=== PATIENT | male | born 1985 | race Caucasian/White ===

== ENCOUNTER 2024-11-28 15:26 | Outpatient (OUT) | payer MEDICAID, SELFPAY ==
--- NOTE | 2024-11-28 15:27 | XR_ITS ---
The [address] [address] Patient Name: VASHTI SANFORD MRN: [id number] date: 1985 Sex: M Assigned Patient Location: RAD Current Patient Location: RAD Accession/Order Number: [id number] Exam Date: 11/28/2024 15:33 Report Date: 11/28/2024 15:50 At the request of: JESSI CHRISTIAN Procedure: XR hand LT min 3V EXAM: XR hand LT min 3V HISTORY: Swollen Left Hand COMPARISON: None. TECHNIQUE: 3 views of the left hand were obtained. FINDINGS: There is a fracture through the mid shaft of the fifth metacarpal bone, which is nondisplaced. There is no other evidence of an acute fracture or dislocation. A small calcification is seen along the ulnar aspect of the distal phalanx of the third digit, possibly a remote chip fracture. The joint spaces appear intact throughout. The soft tissues are unremarkable. XR/XR hand LT min 3V IMPRESSION: Nondisplaced fracture of the midshaft of the fifth metacarpal bone. There is no other evidence of an acute fracture or dislocation. The joint spaces are intact. Electronically authenticated by: TRISTON GARZA Date: 11/28/2024 15:50
--- NOTE | 2024-11-28 15:27 | XR_ITS ---
The [address] [address] Patient Name: VASHTI SANFORD MRN: [id number] date: 1985 Sex: M Assigned Patient Location: [facility] Current Patient Location: [facility] Accession/Order Number: [id number] Exam Date: 11/28/2024 15:33 Report Date: 11/28/2024 15:48 At the request of: JESSI CHRISTIAN Procedure: XR wrist LT min 3V EXAM: XR wrist LT min 3V HISTORY: Swollen Left wrist and Hand COMPARISON: None. TECHNIQUE: 3 views of the left wrist were obtained. FINDINGS: There is no evidence of an acute fracture or dislocation. There is mild relative widening of the scapholunate joint space suggesting an injury to the ligament. The joint space otherwise intact. Ulnar minus variance is present. The soft tissues appear unremarkable. XR/XR wrist LT min 3V IMPRESSION: No acute fracture or dislocation at the wrist. Slight relative widening of the scapholunate joint space is noted. Incidentally noted is a fracture of the midshaft of the fifth metacarpal bone. Please see the report for the x-ray of the hand performed today for further details. Electronically authenticated by: TRISTON GARZA Date: 11/28/2024 15:48
== END 2024-11-28 15:27 | disposition home or self-care (01) ==
LOC: RAD 15:26
PROVIDERS: PCP Nurse Practitioner Primary Care; Visit Provider Nurse Practitioner Primary Care
DX: M25.442 Effusion, left hand (principal); S62.357A Nondisplaced fracture of shaft of fifth metacarpal bone, left hand, initial encounter for closed fracture
CPT/HCPCS: 73110; 73130

== ENCOUNTER 2024-11-29 08:42 | Emergency (ER) | payer MEDICAID, SELFPAY ==
[2024-11-29 08:47] VITALS: BP 131/84; PULSE 86; TEMP 37; O2SAT 95; BMI 38.4
--- NOTE | 2024-11-29 09:02 | ED_ITS ---
HPI HPI - Extremity Injury (Upper) General Chief Complaint: Extremity Injury, Upper Stated Complaint: LEFT HAND INJURY Time Seen by Provider: 11/29/24 08:45 Source: patient Mode of arrival: walk-in Limitations: no limitations History of Present Illness HPI narrative: 39-year-old male presents for left hand injury. A week ago he punched a wall, he is right-handed. Yesterday he had an outpatient x-ray that shows a nondisplaced fifth metacarpal fracture. He was sent in for evaluation. He has no weakness or numbness and the pain is moderate. No other injury sustained. Related Data Home Medications ?Medication ?Instructions ?Recorded ?Confirmed acetaminophen 500 mg tablet 500 mg PO BID PRN pain 11/29/24 11/29/24 buspirone 10 mg tablet 10 mg PO BID 11/29/24 11/29/24 hydroxyzine pamoate 25 mg capsule 25 mg PO Q6H 11/29/24 11/29/24 ibuprofen 800 mg tablet 800 mg PO Q12H PRN fever or pain 11/29/24 11/29/24 melatonin 10 mg capsule 10 mg PO BEDTIME PRN sleep 11/29/24 11/29/24 Previous Rx's ?Medication ?Instructions ?Recorded ibuprofen 800 mg tablet 800 mg PO Q8H PRN pain #20 tabs 11/29/24 Allergies Allergy/AdvReac Type Severity Reaction Status Date / Time No Known Drug Allergies Allergy Verified 11/29/24 08:46 Opioid HPI Opioid Management Most Recent Pain and Opioid Data: No Data to Display Review of Systems ROS Narrative A ten point review of systems is negative except as noted above. PFSH PFSH Social History Little interest or pleasure in doing things: not at all Feeling down, depressed, or hopeless: not at all Exam Narrative Exam Narrative: Nurses note and vital signs reviewed and patient is not hypoxic. General: The patient appears well and in no apparent distress. Patient is resting comfortably on cart. Skin: Warm, dry, no pallor noted. There is no rash noted. Head: Normocephalic, atraumatic Eye: Normal conjunctiva, no drainage Ears, Nose, Mouth, and Throat: oral mucosa is moist. Nares patent. Cardiovascular: Regular Rate and Rhythm Respiratory: Patient is in no distress, no accessory muscle use, lungs are clear to auscultation, no wheezing, rales or rhonchi Back: non-tender GI: Soft and nontender Musculoskeletal: The left hand is examined. Skin intact. He has some swelling and tenderness over the fifth metacarpal area. Fingers have full range of motion. Wrist nontender and has full range of motion. Neurological: A&O, normal speech Psychiatric: Cooperative Constitutional Vital Signs, click to edit/add: Last Vital Signs Temp 98.6 F 11/29/24 08:47 Pulse 86 11/29/24 08:47 Resp 87 H 11/29/24 08:47 BP 131/84 11/29/24 08:47 Pulse Ox 95 11/29/24 08:47 O2 Del Method Room Air 11/29/24 08:47 Course Vital Signs Vital signs: Vital Signs Temperature 98.6 F 11/29/24 08:47 Pulse Rate 86 11/29/24 08:47 Respiratory Rate 87 H 11/29/24 08:47 Blood Pressure 131/84 11/29/24 08:47 Pulse Oximetry 95 11/29/24 08:47 Oxygen Delivery Method Room Air 11/29/24 08:47 Temperature 98.6 F 11/29/24 08:47 Pulse Rate 86 11/29/24 08:47 Respiratory Rate 87 H 11/29/24 08:47 Blood Pressure 131/84 11/29/24 08:47 Pulse Oximetry 95 11/29/24 08:47 Oxygen Delivery Method Room Air 11/29/24 08:47 MDM - Extremity Injury (Upper) MDM Narrative Medical decision making narrative: I reviewed his outpatient x-ray from yesterday and he has 1/5 metacarpal fracture, nondisplaced, midshaft. Ulnar gutter splint applied, application checked by me and found to be appropriate, he is neurovascular intact. Sling applied and application also checked by me and found to be appropriate, he is neurovascularly intact. Appointment made to see Dr. Choudhury on December 05 at 10:30 AM and he was prescribed ibuprofen. Treatment diagnosis and follow-up were discussed with the patient. Differential Diagnosis Differential diagnosis: Likely other (Hand fracture, hand contusion) Discharge Plan Discharge Chief Complaint: Extremity Injury, Upper Clinical Impression: Fracture of fifth metacarpal bone of left hand Patient Disposition: Home, Self-Care Time of Disposition Decision: 09:00 Condition: Good Mode of Transportation: Private Vehicle Prescriptions / Home Meds: New ibuprofen 800 mg tablet 800 mg PO Q8H PRN (Reason: pain) Qty: 20 0RF No Action buspirone 10 mg tablet 10 mg PO BID acetaminophen 500 mg tablet 500 mg PO BID PRN (Reason: pain) hydroxyzine pamoate 25 mg capsule 25 mg PO Q6H ibuprofen 800 mg tablet 800 mg PO Q12H PRN (Reason: fever or pain) melatonin 10 mg capsule 10 mg PO BEDTIME PRN (Reason: sleep) Print Language: Icelandic Instructions: Hand Fracture (ED) Referrals: Elías Villareal NP [Primary Care Provider] - 1 week Larry Choudhury MD [Physician] - 12/05/24 10:30 am
[2024-11-29] MEDS: IBUPROFEN 400 MG TABLET 800 MG PO (09:31)
== END 2024-11-29 09:47 | disposition home or self-care (01) ==
PROVIDERS: Emergency Provider Emergency Medicine; PCP Nurse Practitioner Primary Care
DX: S62.307A Unspecified fracture of fifth metacarpal bone, left hand, initial encounter for closed fracture (principal); W22.01XA Walked into wall, initial encounter; Z59.00 Homelessness unspecified; F31.9 Bipolar disorder, unspecified
CPT/HCPCS: 29125; 99283

== ENCOUNTER 2024-11-29 19:32 | Emergency (ER) | payer MEDICAID, SELFPAY ==
[2024-11-29 19:33] VITALS: BP 130/93; PULSE 87; TEMP 36.7; O2SAT 97; BMI 38.4
--- OUTSIDE RECORDS SUMMARY | 2024-11-29 19:42 | XMS_ITS | CCD ---
Author Organization [facility] Care Team Providers Care Workers Compensation Defense Attorney Name Role Phone Annmarie Blevins Primary Care Provider ANNMARIE BLEVINS Primary Care Unavailable REGINALDO STEVENSON Attending Unavailable ANNMARIE BLEVINS Primary Care Unavailable UBALDO SMALL Attending Unavailable Annmarie Blevins MD Primary Care Provider Isis Obregon APRN, CNP Primary Care Provider Unavailable Primary Care Provider UnavailDO [place] [facility] Provider [phone] NO FAMILY, PHYSICIAN Primary Care Provider Unava ilable BEST ROPER Attending Unavailable Madhav Vanegas Admitting Unavailab le Madhav Vanegas Attending Unavailab le NO FAMILY, PHYSICIAN Primary Care Unavailable [place] Attending Unavailable NO FAMILY, PHYSICIAN Primary Care Unavailable [place] Admitting Unavailable THUMSRAVANTHI GILESHEETH Referring Unavaila ble THUMMALAPALLYNAV Attending Unavaila ble THUMMALAPALLY, EVELYNEH Admitting Unavaila ble NANDO, LEEANN S Consulting Unavailable THUMMALLIUDMILALLYEVELYNEH Attending Unavaila ble THUMMALAPALLLeland, EVELYNEH Admitting Unavaila ble Davon Bernal MD Admitting Unavailable Galdino III RENY, Annmarie Issa Attending Unavailable Seema OGLESBY, Jonathan Primary Care Unavail able Samantha Rivera Consulting Unavailable David Barnhart MD Attending Unavail able David Barnhart MD Admitting Unavail able Jonathan Jeff Primary Care Unavail able Jonathan Jeff Primary Care Unavail able Seema OGLESBY, Jonathan Attending Unavail able Wilberto Morton MD Attending Unava ilable Ebosele MIXING HOUSE OPERATOR-CHANGE CONTROL MANAGER, Jonathan Primary Care Unavail able Diekman MIXING HOUSE OPERATOR-CHANGE CONTROL MANAGER, Rivka Olivares Consulting Unavail able Vale Guerrero DO Attending Unavailable Vale Guerrero DO Admitting Unavailable Ebosele MIXING HOUSE OPERATOR-CHANGE CONTROL MANAGER, Jonathan Primary Care Unavail able Diekman MIXING HOUSE OPERATOR-CHANGE CONTROL MANAGER, Rivka Olivares Consulting Unavail able Jordan Herron MD Attending Unavail able Gopal MEEK, Jordan Wilde Admitting Unavail able Ebosele MIXING HOUSE OPERATOR-CHANGE CONTROL MANAGER, Jonathan Primary Care Unavail able Leslie Ng Admitting Unavailab le Ebosele MIXING HOUSE OPERATOR-CHANGE CONTROL MANAGER, Jonathan Primary Care Unavail able Leslie Ng Attending Unavailab racquel Moreno MD, Janelle Randolph Attending Unavailable Ebosele MIXING HOUSE OPERATOR-CHANGE CONTROL MANAGER, Jonathan Primary Care Unavail able Sarah Gaitan PA-C Attending Unavaila ble Ebosele MIXING HOUSE OPERATOR-CHANGE CONTROL MANAGER, [place] Primary Care Unavail able Lenny MEEK, Tai Marie Attending Unav ailable Ebosele MIXING HOUSE OPERATOR-CHANGE CONTROL MANAGER, Jonathan Primary Care Unavail able Samantha Rivera Consulting Unavailable Selene MEEK, Wilberto Webb Attending Unava ilable Ebosele MIXING HOUSE OPERATOR-CHANGE CONTROL MANAGER, Jonathan Primary Care Unavail able Pebbles Ruiz DO Attending Unava ilable Ebosele MIXING HOUSE OPERATOR-CHANGE CONTROL MANAGER, Jonathan Primary Care Unavail able Janelle Moreno MD Attending Unavailable Ebosele MIXING HOUSE OPERATOR-CHANGE CONTROL MANAGER, Jonathan Primary Care Unavail able Ebosele MIXING HOUSE OPERATOR-CHANGE CONTROL MANAGER, Jonathan Primary Care Unavail able Leslie Ng Attending Unavailab Leslie Francis Admitting Unavailab le Ebosele MIXING HOUSE OPERATOR-CHANGE CONTROL MANAGER, Jonathan Attending Unavail able Ebosele MIXING HOUSE OPERATOR-CHANGE CONTROL MANAGER, Jonathan Primary Care Unavail able Samantha Rivera Attending Unavailable Davon Bernal MD Admitting Unavailable Ebosele MIXING HOUSE OPERATOR-CHANGE CONTROL MANAGER, Jonathan Primary Care Unavail able Ebosele MIXING HOUSE OPERATOR - CHANGE CONTROL MANAGER, Jonathan Primary Care Provider No Family, Physician Primary Care Unavailable [facility] Primary Care Unavailable MAI SCHUSTER Attending Unavailable No Family, Physician Primary Care Unavailable THUMMALAPALLY, RUSHEETH Admitting Unavaila ble THUMMALAPALLY, RUSHEETH Attending Unavaila ble EBOSELE, JONATHAN Primary Care Unavailable KIRAN ORTIZ Attending Unavailable No Family, Physician Primary Care Unavailable UNKNOWN, UNKNOWN Referring Unavailable CHAUHAN, SEVERIANO Admitting Unavailable CHAUHAN, SEVERIANO Attending Unavailable CHAUHAN, SEVERIANO Admitting Unavailable CHAUHAN, SEVERIANO Attending Unavailable SELF, SELF Referring Unavailable UNKNOWN, UNKNOWN Referring Unavailable CHAUHAN, SEVERIANO Admitting Unavailable CHAUHAN, SEVERIANO Attending Unavailable UNKNOWN, UNKNOWN Referring Unavailable CHAUHAN, SEVERIANO Admitting Unavailable CHAUHAN, SEVERIANO Attending Unavailable CHAUHAN, SEVERIANO Admitting Unavailable CHAUHAN, SEVERIANO Attending Unavailable RODNEY FOSTER Referring Unavailable CHAUHAN, SEVERIANO Admitting Unavailable CHAUHAN, SEVERIANO Attending Unavailable JONATHAN STEPHENSON Primary Care Unavailable LAURA WERNER Attending Unavailable RASHEEDA VARGAS Consulting Unavailable LAURYN, ABHI Admitting Unavailable LAURYN, ABHI Consulting Unavailable PHYSICIANS, [facility] Consulting Kelsey vailable SEEMA, JONATHAN Primary Care Unavailable RAMIREZ FARFAN Attending Unavailable CECIL CALABRESE Admitting Unavailable PHYSICIANS, [facility] Consulting Kelsey vailable EBOSELE, JONATHAN Primary Care Unavailable FILIBERTO KIRBY Attending Unavailable ARAR, SYEDA H Consulting Unavailable RAVEN, GHADA P Admitting Unavailable RAVEN, GHADA P Attending Unavailable RAVEN, GHADA P Referring Unavailable EBOSELE, JONATHAN Primary Care Unavailable EBOSELE, JONATHAN Primary Care Unavailable THERON QUIROZ Attending Unavailable ARAR, SYEDA H Admitting Unavailable PHYSICIANS, [facility] Consulting Kelsey vailable EBNJE, JONATHAN Referring Unavailable EBOSELE, JONATHAN Primary Care Unavailable FABIAN STEEL Referring Unavailable EBOSELE, JONATHAN Primary Care Unavailable PAUL LEROY Attending Unavailable MAKAYLAOSELWes, JONATHAN Primary Care Unavailable PAUL LEROY Attending Unavailable CAREY HERNANDEZ Attending Unavailable BUFFY CAMARILLO Attending Unavailable BUFFY CAMARILLO Attending Unavailable SEEMA, JONATHAN Primary Care Unavailable Allergies Allergy Classification Reported Allergen(s) Allergy Type Date of Onset Reaction(s) Facility (1 source) No Known Medication Allergies; Translations: [No Known Medication Allergies] Propensity to adverse reactions to drug (disorder) [facility] Repository Medications Current Medications Medication Drug Class(es) Dates Sig (Normalized) Sig (Original) acetaminophen 325 mg oral tablet (2 sources) Start: 06-08-2024 650 mg, Oral, EVERY 4 HOURS PRN, Starting on Thu06/08/24 at 2208, Until Discontinued, Pain Mild (1-3), Pain Moderate (4-6), Fever, Fever >100.5 F (38 C), Maximum dose of acetaminophen is 4000 mg from all sources in 24 hours., 7-10 Start: 01-24-2023 End: 01-24-2023 acetaminophen (TYLENOL) tabl et 1,000 mg amLODIPine 10 mg oral tablet (4 sources) Dihydropyridine Calcium Channel Diallo Start: 09-24-2022 take 1 tablet by mouth once daily amLODIPine (NORVASC) 10 MG tablet Indications: Primary hypertension Take 1 tablet by mouth daily 30 tablet 3 09/24/2022 Active amLODIPine Besyl ate (NORVASC PO) Take by mouth daily 0 Active cephalexin 500 mg oral capsule (1 source) Cephalosporin Antibacterial Start: 05-13-2020 End: 05-23-2020 take 1 capsule by mouth four times daily cephALEXin (KEFLEX) 500 MG capsule Take 1 capsule by mouth 4 times daily for 10 days 40 capsule 0 05/13/2020 05/23/2020 Active chlordiazePOXIDE hydrochloride 25 mg oral capsule (3 sources) Benzodiazepine Start: 09-17-2024 End: 09-21-2024 chlordiazePOXIDE (LIBRIUM) 25 MG capsule Indications: Alcohol withdrawal syndrome without complication (HCC) Day 1: Take 2 to 4 capsules every 6 hours as needed Day 2: Take 2 to 4 capsules every 8 hours as needed Day 3: Take 2 to 4 capsules every 12 hours as needed Day 4: Take 2 to 4 capsules as needed through the day 40 capsule 3 09/17/2024 09/21/2024 Active cholecalciferol 0.05 mg oral capsule (3 sources) Vitamin D Start: 09-24-2022 take 1 capsule by mouth once daily Cholecalciferol 50 MCG (1999 UT) CAPS Indications: Vitamin deficiency Take 2,000 Units by mouth daily 30 capsule 3 09/24/2022 Active cloNIDine hydrochloride 0.1 mg oral tablet (4 sources) Central alpha-2 Adrenergic Agonist Start: 09-03-2024 take 1 tablet by mouth twice daily as needed for hypertension cloNIDine (CATAPRES) 0.1 MG tablet Take 1 tablet by mouth 2 times daily as needed for High Blood Pressure 60 tablet 09/03/2024 Active Start: 05-03-2024 End: 06-11-2024 take 1 tablet by mouth twice daily cloNIDine (CATAPRES) 0.1 MG tablet Take 1 tablet by mouth 2 times daily 05/03/2024 06/11/2024 Discontinued (Stop Taking at Discharge) cyclobenzaprine hydrochloride 10 mg oral tablet (1 source) Muscle Relaxant Start: 06-26-2020 End: 07-06-2020 take 1 tablet by mouth three times daily as needed for muscle spasms cyclobenzaprine (FLEXERIL) 10 MG tablet Take 1 tablet by mouth 3 times daily as needed for Muscle spasms 21 tablet 0 06/26/2020 07/06/2020 Active doxycycline hyclate 100 mg oral tablet (1 source) Tetracycline-cl ass Drug Start: 05-13-2020 End: 05-23-2020 take 1 tablet by mouth twice daily doxycycline hyclate (VIBRA-TABS) 100 MG tablet Take 1 tablet by mouth 2 times daily for 10 days 20 tablet 0 05/13/2020 05/23/2020 Active FLUoxetine 40 mg oral capsule (14 sources) Serotonin Reuptake Inhibitor Start: 09-03-2024 take 1 capsule by mouth once daily FLUoxetine (PROZAC) 40 MG capsule Take 1 capsule by mouth daily 30 capsule 09/03/2024 Active Start: 06-09-2024 take 40 mg by mouth once daily 40 mg, Oral, DAILY, First dose on Kassi 06/09/24 at 1030, Until Discontinued Start: 08-20-2023 End: 06-11-2024 take 1 capsule by mouth once daily FLUoxetine (PROZAC) 40 MG capsule Take 1 capsule by mouth daily 30 capsule 06/11/2024 Active Start: 01-28-2023 take 1 capsule by mo uth once daily FLUoxetine (PROZAC) 10 MG capsule Take 1 capsule by mouth daily 30 capsule 0 01/28/2023 Active Start: 09-24-2022 take 2 capsules by m outh once daily FLUoxetine (PROZAC) 20 MG capsule Indications: Moderate episode of recurrent major depressive disorder (HCC) Take 2 capsules by mouth daily 30 capsule 3 09/24/2022 Active Start: 09-24-2022 take 1 capsule by mo uth once daily FLUoxetine (PROZAC) 40 MG capsule Indications: Moderate episode of recurrent major depressive disorder (HCC) Take 1 capsule by mouth daily 30 capsule 3 09/24/2022 Active haloperidol lactate (HALDOL) injection 5 mg (1 source) Start: 06-08-2024 haloperidol lactate (HALDOL) injection 5 mg hydrOXYzine hydrochloride 25 mg oral tablet (7 sources) Antihistamine Start: 09-17-2024 End: 09-27-2024 take 1 tablet by mouth every eight hours as needed hydrOXYzine HCl (ATARAX) 25 MG tablet Take 1 tablet by mouth every 8 hours as needed for Itching 30 tablet 09/17/2024 09/27/2024 Active Start: 06-11-2024 End: 06-21-2024 take 1 tablet by mouth three times daily as needed for anxiety hydrOXYzine HCl (ATARAX) 50 MG tablet Take 1 tablet by mouth 3 times daily as needed for Anxiety 30 tablet 06/11/2024 06/21/2024 Active Start: 06-08-2024 take 50 mg by mouth three times daily as needed 50 mg, Oral, 3 TIMES DAILY PRN, Starting on Thu06/08/24 at 2210, Until Discontinued, Anxiety Start: 06-07-2024 End: 06-11-2024 take 1 capsule by mouth three times daily as needed for anxiety hydrOXYzine pamoate (VISTARIL) 50 MG capsule Take 1 capsule by mouth 3 times daily as needed for Anxiety 06/07/2024 06/11/2024 Discontinued (Stop Taking at Discharge) Start: 01-24-2023 End: 01-24-2023 hydrOXYzine HCl (ATARAX) tab let 25 mg ibuprofen 400 mg oral tablet (8 sources) Nonsteroidal Anti-inflammatory Drug Start: 06-08-2024 400 mg, Oral, CADEN RY 6 HOURS PRN, Starting on Thu06/08/24 at 2208, Until Discontinued, Pain Mild (1-3), Pain Moderate (4-6), Other, Pain 7-10. Give ibuprofen first for pain 1-3 and 4-6, if ineffective after one hour give acetaminophen, Do not crush or chew. Start: 06-26-2020 [facility] as needed for pain ibuprofen (ADVIL;MOTRIN) 600 MG tablet Take 1 tablet by mouth every 6 hours as needed for Pain 30 tablet 0 06/26/2020 Active Start: 09-01-2016 End: 06-26-2020 take 1 tablet by mouth every eight hours as needed for pain ibuprofen (ADVIL;MOTRIN) 800 MG tablet Take 1 tablet by mouth every 8 hours as needed for Pain or Fever 15 tablet 0 05/13/2020 06/26/2020 Discontinued levothyroxine sodium 0.05 mg oral tablet (3 sources) l-Thyroxine Start: 09-03-2024 take 1 tablet by mouth once daily levothyroxine (SYNTHROID) 50 MCG tablet Take 1 tablet by mouth Daily 30 tablet 09/03/2024 Active omeprazole 40 mg delayed release oral capsule (3 sources) Proton Pump Inhibitor take 1 capsule by mouth once daily omeprazole (PRILOSEC) 40 MG delayed release capsule Take 1 capsule by mouth daily Active predniSONE 10 mg oral tablet (2 sources) Start: 09-19-2024 End: 09-29-2024 take 4 tablets by mouth once daily predniSONE (DELTASONE) 10 MG tablet Take 4 tablets by mouth once daily for 4 days 16 tablet 09/19/2024 09/29/2024 Active Start: 09-19-2024 End: 09-19-2024 take 1 dose by mouth once 40 mg, Oral, ONCE, 1 dose, O n 09/19/24 at 0145 thiamine 100 mg oral tablet (1 source) Start: 01-20-2023 thiamine table t 100 mg traZODone hydrochloride 50 mg oral tablet (10 sources) Serotonin Reuptake Inhibitor Start: 09-17-2024 End: 09-27-2024 take 3 tablets by mouth once daily traZODone (DESYREL) 50 MG tablet Take 3 tablets by mouth nightly for 10 days 30 tablet 09/17/2024 Active Start: 09-03-2024 End: 09-17-2024 take 1 tablet by mouth once daily as needed for sleep traZODone (DESYREL) 150 MG tablet Take 1 tablet by mouth nightly as needed for Sleep 30 tablet 09/03/2024 09/17/2024 Discontinued Start: 06-08-2024 take 50 mg by mouth once daily as needed 50 mg, Oral, NIGHTLY PRN, Starting on Thu06/08/24 at 2211, Until Discontinued, Sleep Start: 08-20-2023 End: 06-11-2024 take 1 tablet by mouth once daily as needed for sleep traZODone (DESYREL) 150 MG tablet Take 1 tablet by mouth nightly as needed for Sleep 30 tablet 06/11/2024 Active Start: 01-27-2023 take 1 tablet by cristian th once daily as needed for sleep traZODone (DESYREL) 50 MG tablet Take 1 tablet by mouth nightly as needed for Sleep 30 tablet 0 01/27/2023 Active Completed/Discontinued Medications Medication Drug Class(es) Dates Sig (Normalized) Sig (Original) acetaminophen 325 mg / oxyCODONE hydrochloride 5 mg oral tablet (1 source) Opioid Agonist Start: 06-26-2020 End: 06-26-2020 oxyCODONE-acetamin ophen (PERCOCET) 5-325 MG per tablet 1 tablet Start: 06-26-2020 End: 06-26-2020 oxyCODONE-acetaminophen (PER COCET) 5-325 MG per tablet 1 tablet aluminum hydroxide 40 mg/ml / magnesium hydroxide 40 mg/ml / simethicone 4 mg/ml oral suspension (1 source) Start: 06-08-2024 take 30 mL by mouth every six hours as needed 30 mL, Oral, EVERY 6 HOURS PRN, Starting on Thu06/08/24 at 2208, Until Discontinued, Indigestion busPIRone hydrochloride 5 mg oral tablet (2 sources) Start: 08-20-2023 End: 06-11-2024 take 1 tablet by mouth three times daily busPIRone (BUSPAR) 5 MG tablet Take 1 tablet by mouth 3 times daily 90 tablet 08/20/2023 06/11/2024 Discontinued (Stop Taking at Discharge) calcium chloride 0.0014 meq/ml / potassium chloride 0.004 meq/ml / sodium chloride 0.103 meq/ml / sodium lactate 0.028 meq/ml injectable solution (1 source) Start: 06-08-2024 End: 06-08-2024 1,000 mL, IntraVENous, at 1,000 mL/hr, Administer over 60 Minutes, ONCE, On Thu06/08/24 at 1415, For 1 dose dextromethorphan hydrobromide 2 mg/ml / guaiFENesin 20 mg/ml oral suspension (1 source) Uncompetitive U-yqyboe-O-aspartat e Receptor Antagonist, Sigma-1 Agonist Start: 09-17-2024 take 5 mL by mouth every four hours as needed 5 mL, Oral, EVERY 4 HOURS PRN, Starting on 09/17/24 at 1358, Until Discontinued, Cough diclofenac sodium 0.01 mg/mg topical gel (2 sources) Nonsteroidal Anti-inflammatory Drug Start: 01-06-2024 End: 06-11-2024 diclofenac sodium (VOLTAREN) 1 % GEL Apply 2 g topically 4 times daily 350 g 01/06/2024 06/11/2024 Discontinued (Stop Taking at Discharge) 1 ml diphenhydrAMINE hydrochloride 50 mg/ml cartridge (2 sources) Histamine-1 Receptor Antagonist Start: 06-09-2024 End: 06-09-2024 50 mg, IntraMUSCular, ONCE, 1 dose, On Kassi 06/09/24 at 2115, IV Push at rate not to exceed 25 mg/min. Start: 06-08-2024 diphenhydrAMIN E (BENADRYL) tablet 50 mg gabapentin 300 mg oral capsule (10 sources) Anti-epileptic Agent Start: 06-09-2024 take 300 mg by mouth three times daily 300 mg, Oral, 3 TIMES DAILY, First dose on Kassi 06/09/24 at 1030, Until Discontinued Start: 09-24-2022 End: 10-24-2022 take 1 capsule by mouth three times daily gabapentin (NEURONTIN) 400 MG capsule Indications: Neuropathy take 1 capsule by mouth three times a day 90 capsule 1 09/24/2022 Active gabapentin (NEUR ONTIN) 400 MG capsule Take 300 mg by mouth 3 times daily. Active 1 ml haloperidol 5 mg/ml prefilled syringe (1 source) Typical Antipsychotic Start: 06-09-2024 End: 06-09-2024 5 mg, IntraMUSCular, ONCE, 1 dose, On Kassi 06/09/24 at 2100, IM route of administration preferred. Because of the risk of TdP and QT prolongation, ECG monitoring is recommended if haloperidol is given IV. 1 ml ketorolac tromethamine 30 mg/ml cartridge (2 sources) Nonsteroidal Anti-inflammatory Drug, Cyclooxygenase Inhibitor Start: 02-02-2023 End: 02-02-2023 ketorolac (TORADOL) injection 30 mg Start: 06-26-2020 End: 06-26-2020 ketorolac (TORADOL) injectio n 30 mg lidocaine 0.05 mg/mg topical ointment (2 sources) Antiarrhythmic, Amide Local Anesthetic Start: 01-06-2024 End: 06-11-2024 lidocaine (XYLOCAINE) 5 % ointment Apply topically as needed. 50 g 01/06/2024 06/11/2024 Discontinued (Stop Taking at Discharge) 1 ml LORazepam 2 mg/ml injection (3 sources) Benzodiazepine Start: 11-21-2024 End: 11-21-2024 1 mg, IntraVENous, ONCE, 1 dose, On Thu11/21/24 at 1645 Start: 05-02-2024 End: 05-02-2024 LORazepam (ATIVAN) injection 2 mg Start: 01-20-2023 End: 01-20-2023 LORazepam (ATIVAN) injection 1 mg magnesium hydroxide 80 mg/ml oral suspension (1 source) Start: 06-08-2024 take 30 mL by mouth once daily as needed for constipation 30 mL, Oral, DAILY PRN, Starting on Thu06/08/24 at 2208, Until Discontinued, Constipation, First line therapy for constipation. Multiple Vitamins-Minerals (THERAPEUTIC MULTIVITAMIN-MINERAL S) tablet (2 sources) Start: 08-21-2023 End: 06-11-2024 take 1 tablet by mouth once daily Multiple Vitamins-Minerals (THERAPEUTIC MULTIVITAMIN-MINERALS) tablet Take 1 tablet by mouth daily 30 tablet 08/21/2023 06/11/2024 Discontinued (Stop Taking at Discharge) Start: 08-21-2023 take 1 tablet by cristian once daily Multiple Vitamins-Minerals (THERAPEUTIC MULTIVITAMIN-MINERALS) tablet Take 1 tablet by mouth daily 30 tablet 0 08/21/2023 Active nicotine 2 mg oral lozenge (1 source) Cholinergic Nicotinic Agonist Start: 06-11-2024 2 mg, Oral, EVERY 2 HOURS PRN, Starting on Thu06/11/24 at 1415, Until Discontinued, Smoking cessation, Dissolve slowly, occasionally moving lozenge from one side of the mouth to the other. Do not chew or swallow. Do not eat or drink for 15 minutes before or while using lozenge. Maximum: 5 lozenges every 6 hours 2 ml ondansetron 2 mg/ml injection (1 source) Serotonin-3 Receptor Antagonist Start: 06-26-2020 End: 06-26-2020 ondansetron (ZOFRAN) injection 4 mg Start: 06-26-2020 End: 06-26-2020 ondansetron (ZOFRAN) injecti on 4 mg 2 ml orphenadrine citrate 30 mg/ml injection (1 source) Muscle Relaxant Start: 06-26-2020 End: 06-26-2020 orphenadrine (NORFLEX) injection 60 mg Start: 06-26-2020 End: 06-26-2020 orphenadrine (NORFLEX) injec tion 60 mg pantoprazole 40 mg delayed release oral tablet (5 sources) Proton Pump Inhibitor Start: 08-21-2023 End: 06-11-2024 take 1 tablet by mouth once daily before breakfast pantoprazole (PROTONIX) 40 MG tablet Take 1 tablet by mouth every morning (before breakfast) 30 tablet 3 08/21/2023 06/11/2024 Discontinued (Stop Taking at Discharge) Start: 09-24-2022 take 1 tablet by cristian th once daily pantoprazole (PROTONIX) 40 MG tablet Indications: Gastroesophageal reflux disease without esophagitis Take 1 tablet by mouth daily 30 tablet 2 09/24/2022 Active PHENobarbital (LUMINAL) injection 130 mg (1 source) Start: 11-21-2024 End: 11-21-2024 130 mg, IntraVENous, ONCE, 1 dose, On Thu11/21/24 at 1445 PHENobarbital (LUMINAL) injection 130 mg (1 source) Start: 11-21-2024 End: 11-21-2024 130 mg, IntraVENous, ONCE, 1 dose, On Thu11/21/24 at 1245 QUEtiapine 100 mg oral tablet (2 sources) Atypical Antipsychotic Start: 09-03-2024 End: 09-17-2024 take 1 tablet by mouth at bedtime QUEtiapine (SEROQUEL) 100 MG tablet Take 1 tablet by mouth at bedtime 30 tablet 09/03/2024 09/17/2024 Discontinued End: 06-11-2024 take 0.5 tablet by mouth once daily QUEtiapine (SEROQUEL) 200 MG tablet Take 0.5 tablets by mouth nightly 06/11/2024 Discontinued (Stop Taking at Discharge) 50 ml sodium chloride 9 mg/m l injection (1 source) Start: 06-26-2020 End: 06-26-2020 0.9 % sodium chloride bolus Problems Active Problems Problem Classification Problem Date Documented Date Episodic/Chronic Alcohol-related disorders (20 sources) Alcohol dependence; Translations: [Alcohol dependence, uncomplicated] Onset: 07-29-2023 05-29-2015 Chronic Anxiety disorders (20 sources) Chronic post-traumatic stress disorder; Translations: [Post-traumatic stress disorder, chronic] Onset: 08-20-2015 08-20-2015 Chronic Chronic obstructive pulmonary disease and bronchiectasis (2 sources) Bronchitis; Translations: [Bronchitis, not specified as acute or chronic] Onset: 09-19-2024 09-19-2024 Episodic Esophageal disorders (5 sources) Gastroesophageal reflux disease; Translations: [Gastro-esophageal reflux disease without esophagitis] Onset: 03-06-2021 10-27-2023 Chronic Essential hypertension (6 sources) Essential hypertension; Translations: [Essential (primary) hypertension] Onset: 04-02-2023 04-02-2023 Chronic Miscellaneous mental health disorders (4 sources) Primary insomnia; Translations: [Primary insomnia] Onset: 12-07-2023 09-17-2024 Chronic Mood disorders (20 sources) Mixed bipolar I disorder; Translations: [Depressive disorder] Onset: 05-29-2015 Resolved: 06-09-2024 08-20-2015 Chronic Mood disorders (7 sources) Mood disorders; Translations: [Depression, unspecified] Onset: 08-18-2023 Nonspecific chest pain (1 source) Chest pain, unspecified; Translations: [Chest pain, unspecified] Onset: 10-30-2024 Episodic Nutritional deficiencies (5 sources) Vitamin D deficiency; Translations: [Vitamin D deficiency, unspecified] Onset: 11-21-2021 10-27-2023 Chronic Other nervous system disorders (1 source) Other chronic pain; Translations: [Other chronic pain] Onset: 01-06-2024 Chronic Skin and subcutaneous tissue infections (1 source) Abscess; Translations: [Abscess] Episodic Spondylosis; intervertebral disc disorders; other back problems (1 source) Acute low back pain; Translations: [Acute bilateral low back pain, unspecified whether sciatica present] Episodic Substance-related disorders (1 source) Polysubstance abuse ; Translations: [Other psychoactive substance abuse, uncomplicated] 05-04-2024 Chronic Thyroid disorders (2 sources) Other specified hypothyroidism; Translations: [Other specified hypothyroidism] Onset: 06-22-2024 Chronic Unclassified (2 sources) Alcohol use, unspecified with withdrawal, unspecified; Translations: [Alcohol use, unspecified with withdrawal, unspecified] Onset: 08-27-2024 Unclassified (1 source) Alcohol use, unspecified with withdrawal, uncomplicated; Translations: [Alcohol use, unspecified with withdrawal, uncomplicated] Onset: 09-17-2024 Unclassified (1 source) Alcohol use, unspecified with withdrawal delirium; Translations: [Alcohol use, unspecified with withdrawal delirium] Onset: 09-08-2024 Unclassified (1 source) Psychiatric Evaluation Onset: 06-07-2024 Unclassified (1 source) Drug / Alcohol Assessment Onset: 01-07-2024 Unclassified (1 source) Suicidal Onset: 01-07-2024 Unclassified (1 source) suicidal/ detox/ intoxicated Onset: 01-07-2024 Past or Other Problems Problem Classification Problem Date Documented Da te Episodic/Chronic Abdominal pain (1 source) Generalized abdominal pain; Translations: [Generalized abdominal pain] Onset: 08-15-2024 Episodic Alcohol-related disorders (2 sources) Alcohol use, unspecified with intoxication, unspecified; Translations: [Alcohol use, unspecified with intoxication, uncomplicated] Onset: 12-26-2023 Episodic Calculus of urinary tract (5 sources) Kidney stone; Translations: [Calculus of kidney] Onset: 03-06-2021 10-27-2023 Episodic Diabetes mellitus without complication (5 sources) Impaired fasting glycemia; Translations: [Impaired fasting glucose] Onset: 11-21-2021 10-27-2023 Episodic Malaise and fatigue (1 source) Weakness; Translations: [Weakness] Onset: 08-15-2024 Episodic Other connective tissue disease (5 sources) Chronic pain of left upper limb; Translations: [Pain in left hand] Onset: 03-06-2021 10-27-2023 Episodic Other non-traumatic joint disorders (1 source) Pain in right shoulder; Translations: [Pain in right shoulder] Onset: 01-06-2024 Episodic Suicide and intentional self-inflicted injury (20 sources) Suicidal thoughts; Translations: [Suicidal ideations] Onset: 08-18-2023 Resolved: 08-20-2015 08-20-2015 Episodic Unclassified (1 source) Alcohol use, unspecified with withdrawal, unspecified; Translations: [Alcohol use, unspecified with withdrawal, unspecified] Onset: 08-27-2024 Results Test Name Value Interpretation Reference Range Facility CBC with Auto Differentialon 11-21-2024 Basophils (Bld) [#/Vol] 0.13 10*3/uL [facility] Basophils/100 WBC (Bld) 2 % 0 - 2 % [facility] Eosinophils (Bld) [#/Vol] 0.19 10*3/uL [facility] Eosinophils/100 WBC (Bld) 2 % 1 - 4 % [facility] Erythrocyte distribution width (RBC) [Ratio] 12.7 % 11.8 - 14.4 % [facility] Hematocrit (Bld) [Volume fraction] 50.7 % High 40.7 - 50.3 % [facility] Hemoglobin (Bld) [Mass/Vol] 17.5 g/dL High 13.0 - 17.0 g/dL [facility] Immature granulocytes (Bld) [#/Vol] [facility] Immature granulocytes/100 WBC (Bld) 0 % 0 [facility] Interpretation and review of laboratory results Abnormal [facility] Lymphocytes/100 WBC (Bld) 34 % 24 - 43 % [facility] Lymphocytes/100 WBC (Bld) 2.71 % [facility] MCH (RBC) [Entitic mass] 29.6 pg 25.2 - 33.5 pg [facility] MCHC (RBC) [Mass/Vol] 34.5 g/dL 28.4 - 34.8 g/dL [facility] MCV (RBC) [Entitic vol] 85.8 fL 82.6 - 102.9 fL [facility] Monocytes/100 WBC (Bld) 8 % 3 - 12 % [facility] Monocytes/100 WBC (Bld) 0.67 % [facility] Neutrophils/100 WBC (Bld) 54 % 36 - 65 % [facility] Nucleated RBC/100 WBC (Bld) [Ratio] 0.0 % 0.0 per 100 WBC [facility] Platelet mean volume (Bld) [Entitic vol] 9.4 fL 8.1 - 13.5 fL [facility] Platelets (Bld) [#/Vol] 302 10*3/uL [facility] RBC (Bld) [#/Vol] 5.91 10*6/uL High 4.21 - 5.7 7 m/uL [facility] Segmented neutrophils/100 WBC (Bld) 4.37 % [facility] WBC other (Bld) [#/Vol] 8.1 [facility] CBC with Diffon 11-21-2024 Abs. Basophil 0.13 k/uL Normal 0.00-0.20 [facility] Comment on above: Performed By: #### E DTOX, MG, CP, CDP #### [facility] [employer] [address] [place] [address] Vegetable Grader: Kael Tran MD Abs.Imm.Granulocyte <0.03 Normal 0.00-0.30 [facility] Comment on above: Performed By: #### E DTOX, MG, CP, CDP #### [facility] [address] [place] [address] Vegetable Grader: Kael Tran MD Abs.Neutrophil (Seg) 4.37 k/uL Normal 1.50-8.10 [facility] Comment on above: Performed By: #### E DTOX, MG, CP, CDP #### [facility] [address] [place] [address] Vegetable Grader: Kael Tran MD Basophils/100 WBC (Bld) 2 % Normal 0-2 [facility] Comment on above: Performed By: #### E DTOX, MG, CP, CDP #### [facility] [employer] [address] [place] [address] Vegetable Grader: Kael Tran MD Eosinophils (Bld) [#/Vol] 0.19 10*3/uL Normal 0.00-0.44 [facility] Comment on above: Performed By: #### E DTOX, MG, CP, CDP #### [address] [address] Vegetable Grader: Kael Tran MD Eosinophils/100 WBC (Bld) 2 % Normal 1-4 [facility] Comment on above: Performed By: #### E DTOX, MG, CP, CDP #### [address] [address] Vegetable Grader: Kael Tran MD Erythrocyte distribution width (RBC) [Ratio] 12.7 % Normal 11.8-14.4 [facility] Comment on above: Performed By: #### E DTOX, MG, CP, CDP #### [facility] [employer] [address] [place] [address] Vegetable Grader: Kael Tran MD Hematocrit (Bld) [Volume fraction] 50.7 % High 40.7-50.3 [facility] Comment on above: Performed By: #### E DTOX, MG, CP, CDP #### [facility] [employer] [address] [place] [address] Vegetable Grader: Kael Tran MD Hemoglobin (Bld) [Mass/Vol] 17.5 g/dL High 13.0-17.0 [facility] Comment on above: Performed By: #### E DTOX, MG, CP, CDP #### [facility] [employer] [address] [place] [address] Vegetable Grader: Kael Tran MD Immature granulocytes/100 WBC (Bld) 0 % Normal 0 [facility] Comment on above: Performed By: #### E DTOX, MG, CP, CDP #### [facility] [employer] [address] [place] [address] Vegetable Grader: Kael Tran MD Lymphocytes (Bld) [#/Vol] 2.71 10*3/uL Normal 1.10-3.70 [facility] Comment on above: Performed By: #### E DTOX, MG, CP, CDP #### [place] [address] Vegetable Grader: Kael Tran MD Lymphocytes/100 WBC (Bld) 34 % Normal 24-43 [facility] Comment on above: Performed By: #### E DTOX, MG, CP, CDP #### [place] [address] Vegetable Grader: Kael Tran MD MCH (RBC) [Entitic mass] 29.6 pg Normal 25.2-33.5 [facility] Comment on above: Performed By: #### E DTOX, MG, CP, CDP #### [place] [address] Vegetable Grader: Kael Tran MD MCHC (RBC) [Mass/Vol] 34.5 g/dL Normal 28.4-34.8 [facility] Comment on above: Performed By: #### E DTOX, MG, CP, CDP #### [place] [address] Vegetable Grader: Kael Tran MD MCV (RBC) [Entitic vol] 85.8 fL Normal 82.6-102.9 [facility] Comment on above: Performed By: #### E DTOX, MG, CP, CDP #### [place] [address] Vegetable Grader: Kael Tran MD Monocytes (Bld) [#/Vol] 0.67 10*3/uL Normal 0.10-1.20 [facility] Comment on above: Performed By: #### E DTOX, MG, CP, CDP #### [place] [address] Vegetable Grader: Kael Tran MD Monocytes/100 WBC (Bld) 8 % Normal 3-12 [facility] Comment on above: Performed By: #### E DTOX, MG, CP, CDP #### [address] [address] Vegetable Grader: Kael Tran MD Neutrophil (Seg) 54 % Normal 36-65 [facility] Comment on above: Performed By: #### E DTOX, MG, CP, CDP #### [place] [address] Vegetable Grader: Kael Tran MD NRBC Automated 0.0 per 100 WBC Normal 0.0 [facility] Comment on above: Performed By: #### E DTOX, MG, CP, CDP #### [place] [address] Vegetable Grader: Kael Tran MD Platelet mean volume (Bld) [Entitic vol] 9.4 fL Normal 8.1-13.5 [facility] Comment on above: Performed By: #### E DTOX, MG, CP, CDP #### [place] [address] Vegetable Grader: Kael Tran MD Platelets (Bld) [#/Vol] 302 10*3/uL Normal 138-453 [facility] Comment on above: Performed By: #### E DTOX, MG, CP, CDP #### [place] [address] Vegetable Grader: Kael Tran MD RBC (Bld) [#/Vol] 5.91 10*6/uL High 4.21-5.77 [facility] Comment on above: Performed By: #### E DTOX, MG, CP, CDP #### [place] [address] Vegetable Grader: Kael Tran MD WBC (Bld) [#/Vol] 8.1 10*3/uL Normal 3.5-11.3 [facility] Comment on above: Performed By: #### E DTOX, MG, CP, CDP #### [facility] [address] [place] [address] Vegetable Grader: Kael Tran MD [facility] 11-21-2024 Albumin [Mass/Vol] 4.8 g/dL 3.5 - 5.2 g/dL [facility] Albumin/Globulin [Mass ratio] 1.7 {ratio} 1.0 - 2.5 [facility] ALP [Catalytic activity/Vol] 62 U/L 40 - 129 U/L [facility] ALT [Catalytic activity/Vol] 40 U/L 10 - 50 U/L [facility] Anion gap [Moles/Vol] 15 mmol/L 9 - 16 mmol/L [facility] AST [Catalytic activity/Vol] 30 U/L 10 - 50 U/L [facility] Bilirubin [Mass/Vol] 1.5 mg/dL High 0.0 - 1 .2 mg/dL [facility] Calcium [Mass/Vol] 9.8 mg/dL 8.6 - 10. 4 mg/dL [facility] Chloride [Moles/Vol] 103 mmol/L 98 - 10 7 mmol/L [facility] CO2 [Moles/Vol] 21 mmol/L 20 - 31 mmol/L [facility] Creatinine [Mass/Vol] 0.9 mg/dL 0.7 - 1.2 mg/dL [facility] Est, Glom Filt Rate - PINF [facility] Comment on above: These results are not intended for use in patients <18 years of age. eGFR results are calculated without a race factor using the 2020 CKD-EPI equation. Careful clinical correlation is recommended, particularly when comparing to results calculated using previous equations. The CKD-EPI equation is less accurate in patients with extremes of muscle mass, extra-renal metabolism of creatine, excessive creatine ingestion, or following therapy that affects renal tubular secretion. Glucose [Mass/Vol] 94 mg/dL 74 - 99 mg/dL [facility] Potassium [Moles/Vol] 3.9 mmol/L 3.7 - 5.3 mmol/L [facility] Protein [Mass/Vol] 7.7 g/dL 6.6 - 8.7 g/dL [facility] Sodium [Moles/Vol] 139 mmol/L 136 - 145 mmol/L [facility] Urea nitrogen [Mass/Vol] 9 mg/dL 6 - 20 mg/dL [facility] Comp Metabolic Profon 2024 Albumin [Mass/Vol] 4.8 g/dL Normal 3.5-5.2 [facility] Comment on above: Performed By: #### E DTOX, MG, CP, CDP #### [employer] [address] [place] [address] Vegetable Grader: Kael Tran MD Albumin/Glob Ratio 1.7 Normal 1.0-2.5 [facility] Comment on above: Performed By: #### E DTOX, MG, CP, CDP #### [facility] [employer] [address] [place] [address] Vegetable Grader: Kael Tran MD Alkaline Phos 62 U/L Normal 40-129 [facility] Comment on above: Performed By: #### E DTOX, MG, CP, CDP #### [facility] [employer] [address] [place] [address] Vegetable Grader: Kael Tran MD ALT [Catalytic activity/Vol] 40 U/L Normal 10-50 [facility] Comment on above: Performed By: #### E DTOX, MG, CP, CDP #### [facility] [address] [place] [address] Vegetable Grader: Kael Tran MD Anion gap [Moles/Vol] 15 mmol/L Normal 9-16 [facility] Comment on above: Performed By: #### E DTOX, MG, CP, CDP #### [facility] [address] [place] [address] Vegetable Grader: Kael Tran MD AST [Catalytic activity/Vol] 30 U/L Normal 10-50 [facility] Comment on above: Performed By: #### E DTOX, MG, CP, CDP #### [address] [address] Vegetable Grader: Kael Tran MD Bilirubin [Mass/Vol] 1.5 mg/dL High 0.0-1.2 [facility] Comment on above: Performed By: #### E DTOX, MG, CP, CDP #### [facility] [employer] [address] [place] [address] Vegetable Grader: Kael Tran MD Calcium [Mass/Vol] 9.8 mg/dL Normal 8.6-10.4 [facility] Comment on above: Performed By: #### E DTOX, MG, CP, CDP #### [address] [address] Vegetable Grader: Kael Tran MD Chloride [Moles/Vol] 103 mmol/L Normal 98-107 [facility] Comment on above: Performed By: #### E DTOX, MG, CP, CDP #### [address] [address] Vegetable Grader: aKel Tran MD CO2 [Moles/Vol] 21 mmol/L Normal 20-31 [facility] Comment on above: Performed By: #### E DTOX, MG, CP, CDP #### [facility] [employer] [address] [place] [address] Vegetable Grader: Kael Tran MD Creatinine [Mass/Vol] 0.9 mg/dL Normal 0.7-1.2 [facility] Comment on above: Performed By: #### E DTOX, MG, CP, CDP #### [facility] [employer] [address] [place] [address] Vegetable Grader: Kael Tran MD GFR/1.73 sq M.predicted among non-blacks MDRD (S/P/Bld) [Vol rate/Area] mL/min/{1.73_m2} Normal >60 [facility] Comment on above: Result Comment: These results are not intended for use in patients <18 years of age. eGFR results are calculated without a race factor using the 2020 CKD-EPI equation. Careful clinical correlation is recommended, particularly when comparing to results calculated using previous equations. The CKD-EPI equation is less accurate in patients with extremes of muscle mass, extra-renal metabolism of creatine, excessive creatine ingestion, or following therapy that affects renal tubular secretion. Performed By: #### E DTOX, MG, CP, CDP #### [facility] [address] [place] [address] Vegetable Grader: Kael Tran MD Glucose [Mass/Vol] 94 mg/dL Normal 74-99 [facility] Comment on above: Performed By: #### E DTOX, MG, CP, CDP #### [address] [address] Vegetable Grader: Kael Tran MD Potassium [Moles/Vol] 3.9 mmol/L Normal 3.7-5.3 [facility] Comment on above: Performed By: #### E DTOX, MG, CP, CDP #### [facility] [address] [place] [address] Vegetable Grader: Kael Tran MD Protein [Mass/Vol] 7.7 g/dL Normal 6.6-8.7 [facility] Comment on above: Performed By: #### E DTOX, MG, CP, CDP #### [facility] [address] [place] [address] Vegetable Grader: Kael Tran MD Sodium [Moles/Vol] 139 mmol/L Normal 136-145 [facility] Comment on above: Performed By: #### E DTOX, MG, CP, CDP #### [facility] [address] [place] [address] Vegetable Grader: Kael Tran MD Urea nitrogen [Mass/Vol] 9 mg/dL Normal 6-20 [facility] Comment on above: Performed By: #### E DTOX, MG, CP, CDP #### [employer] [address] [place] [address] Vegetable Grader: Kael Tran MD Drug Scr, Abuse, Uron 2024 Barbiturate(s),Ur Positive Abnormal NEG [facility] Comment on above: Result Comment: Cuto ff: 200 ng/ml Performed By: #### E DTOX, MG, CP, CDP #### [employer] [address] [place] [address] Vegetable Grader: Keal Tran MD Benzodiazepine(s) Positive Abnormal NEG [facility] Comment on above: Result Comment: Cuto ff: 200 ng/ml Performed By: #### E DTOX, MG, CP, CDP #### [employer] [address] [place] [address] Vegetable Grader: Kael Tran MD Cannabinoid(s),Ur Positive Abnormal NEG [facility] Comment on above: Result Comment: Cuto ff: 50 ng/ml Performed By: #### E DTOX, MG, CP, CDP #### [employer] [address] [place] [address] Vegetable Grader: Kael Tran MD Interpretive Info Assay provides rapid clinical screening only. Presumptive positive results for Normal [facility] Comment on above: Result Comment: lega l purposes should be confirmed by another method. To request confirmation, please call the lab within 7 days of sample submission. Performed By: #### E DTOX, MG, CP, CDP #### [employer] [address] [place] [address] Vegetable Grader: Kael Tran MD Amphetamine(s),Ur Negative Normal NEG [facility] Comment on above: Result Comment: Cuto ff: 1000 ng/mL Performed By: #### E DTOX, MG, CP, CDP #### [address] [address] Vegetable Grader: Kael Tran MD Cocaine Metabolite Negative Normal NEG [facility] Comment on above: Result Comment: Cuto ff: 300 ng/ml Performed By: #### E DTOX, MG, CP, CDP #### [address] [address] Vegetable Grader: Kael Tran MD Fentanyl, Urine Negative Normal NEG [facility] Comment on above: Result Comment: Cuto ff: 5 ng/ml Performed By: #### E DTOX, MG, CP, CDP #### [address] [address] Vegetable Grader: Kael Tran MD Methadone Ql (U) Negative Normal NEG [facility] Comment on above: Result Comment: Cuto ff: 300 ng/ml Performed By: #### E DTOX, MG, CP, CDP #### [address] [address] Vegetable Grader: Kael Tran MD Opiate(s), Ur Negative Normal NEG [facility] Comment on above: Result Comment: Cuto ff: 300 ng/ml Performed By: #### E DTOX, MG, CP, CDP #### [address] [address] Vegetable Grader: Kael Tran MD Oxycodone, Urine Negative Normal NEG [facility] Comment on above: Result Comment: Cuto ff: 100 ng/ml Performed By: #### E DTOX, MG, CP, CDP #### [address] [address] Vegetable Grader: Kael Tran MD Phencyclidine, Ur Negative Normal NEG [facility] Comment on above: Result Comment: Cuto ff: 25 ng/ml Performed By: #### E DTOX, MG, CP, CDP #### [facility] [employer] [address] [place] [address] Vegetable Grader: Kael Tran MD No Panel Informationon 11-21 Interpretation and review of laboratory results Abnormal [facility] TOX SCR, BLD, EDon 5 Acetaminophen [Mass/Vol] ug/mL Low 10 - 30 ug/mL [facility] Ethanol percent <0.010 NINF - 0.010 % [facility] Ethanolamine [Mass/Vol] <10 NINF - 10 mg/dL [facility] Salicylates [Mass/Vol] mg/dL 0.0 - 10.0 mg/dL [facility] Tox Scr, Bld, EDon 5 Acetaminophen [Mass/Vol] ug/mL Low 10-30 [facility] Comment on above: Performed By: #### E DTOX, MG, CP, CDP #### [facility] [employer] [address] [place] [address] Vegetable Grader: Kael Tran MD Ethanol [Mass/Vol] mg/dL Normal <10 [facility] Comment on above: Performed By: #### E DTOX, MG, CP, CDP #### [facility] [employer] [address] [place] [address] Vegetable Grader: Kael Tran MD Ethanol percent <0.010 Normal <0.010 [facility] Comment on above: Performed By: #### E DTOX, MG, CP, CDP #### [facility] [employer] [address] [place] [phone] Vegetable Grader: Kael Tran MD Salicylate <0.5 Normal 0.0-10.0 [facility] Comment on above: Performed By: #### E DTOX, MG, CP, CDP #### [facility] [employer] [address] [place] [phone] Vegetable Grader: Kael Tran MD Urine Drug Screenon 11-21-19 25 Amphetamines Ql (U) Negative NEGATIVE [facility] Comment on above: Cutoff: 1000 ng/mL Barbiturates Screen Ql (U) Positive Abnormal NEGATIVE [facility] Comment on above: Cutoff: 200 ng/ml Benzodiazepines Ql (U) Positive Abnormal NEGATIVE [facility] Comment on above: Cutoff: 200 ng/ml Cannabinoids Screen Ql (U) Positive Abnormal NEGATIVE [facility] Comment on above: Cutoff: 50 ng/ml Cocaine Ql (U) Negative NEGATIVE [facility] Comment on above: Cutoff: 300 ng/ml fentaNYL Ql (U) Negative NEGATIVE [facility] Comment on above: Cutoff: 5 ng/ml Interpretation and review of laboratory results Abnormal [facility] Methadone Ql (U) Negative NEGATIVE [facility] Comment on above: Cutoff: 300 ng/ml Opiates Screen Ql (U) Negative NEGATIVE [facility] Comment on above: Cutoff: 300 ng/ml oxyCODONE Ql (U) Negative NEGATIVE [facility] Comment on above: Cutoff: 100 ng/ml Phencyclidine Ql (U) Negative NEGATIVE [facility] Comment on above: Cutoff: 25 ng/ml Test Information Assay provides rapid clinical screening only. Presumptive positive results for legal purposes should be confirmed by another method. To request confirmation, please call the lab within 7 days of sample submission. [facility] panelon 5 Cholesterol [Mass/Vol] 215 mg/dL High 150-200 [facility] Comment on above: Performed By: #### C SUSAN, [facility] [place] [place], 3298-7, 4024-6, 5643-2 #### [facility] ([id number]) [address] [place] [address] #### 54359-7 #### [facility] ([id number]) [address] [place] [address], [address] [place] [address] Cholesterol in HDL [Mass/Vol] 44 mg/dL Normal >39 [facility] Comment on above: Result Comment: HDL <40 mg/dL - High Risk HDL > or = 40mg/dL- Desirable HDL >60 mg/dL - Negative Risk Performed By: #### C BCA, BMP, 8-7, 4024-6, 5643-2 #### [facility] ([id number]) [address] [place] [address] #### 43731-9 #### [facility] ([id number]) [address] [address] [place] [address] Cholesterol in LDL [Mass/Vol] 116 mg/dL Normal <130 [facility] Comment on above: Result Comment: LDL <100 mg/dL - Desirable LDL >160 mg/dL - High Risk Performed By: #### C BCA, BMP, 3297-7, 4-6, 5643-2 #### [facility] ([id number]) [address] [place] [address] #### 10130-9 #### [facility] ([id number]) [address] [place] [address] Cholesterol in VLDL [Mass/Vol] 55 mg/dL High 0-30 [facility] Comment on above: Performed By: #### C BCA, BMP, 3297-7, 4-6, 5643-2 #### [facility] ([id number]) [address] [place] [address] #### 85630-7 #### [facility] ([id number]) [address] [place] [address], [address] [place] [address] CHOLESTEROL:HDL 4.9 Normal 1.0-5.0 [facility] Comment on above: Performed By: #### C BCA, BMP, 8-7, 4024-6, 5643-2 #### [facility] ([id number]) [address] [place] [address] #### 27921-0 #### [facility] ([id number]) [address], [address] [place] [address] Triglyceride [Mass/Vol] 275 mg/dL High 27-150 [facility] Comment on above: Performed By: #### C BCA, BMP, 3298-7, 4024-6, 5643-2 #### [facility] ([id number]) [address] [place] [address] #### 69286-3 #### [facility] ([id number]) [address], [address] [place] [address] ACETAMINOPHENon 10-30-2024 Acetaminophen [Mass/Vol] ug/mL Low 10.0-30.0 [facility] Comment on above: Result Comment: Refe rence ranges are for therapeutic limits. Performed By: #### C BCA, BMP, 3298-7, 4024-6, 5643-2 #### [facility] ([id number]) [address] [place] [address] #### 46134-6 #### [facility] ([id number]) [address], [address] [place] [address] CBC AND AUTO DIFFon 10-30-19 25 ABSOLUTE BASOPHIL 0.1 X10E9/L Normal 0.0-0.2 [facility] Comment on above: Performed By: #### C BCA, BMP, 3298-7, 4024-6, 5643-2 #### [facility] ([id number]) [address] [place] [address] #### 49033-4 #### [facility] ([id number]) [address], [address] [place] [address] ABSOLUTE NEUTROPHIL 4.3 X10E9/L Normal 1.5-6.6 [facility] Comment on above: Performed By: #### C BCA, BMP, 3298-7, 4024-6, 5643-2 #### [facility] ([id number]) [address] [place] [address] #### 14607-1 #### [facility] [facility] ([id number]) [address], [address] [place] [address] Basophils/100 WBC (Bld) 0.7 % Normal [facility] Comment on above: Performed By: #### C BCA, BMP, 3298-7, 4024-6, 5643-2 #### [facility] ([id number]) [address] [place] [address] 11087 #### 18023-2 #### [facility] ([id number]) [address], [address] [place] [address] Eosinophils (Bld) [#/Vol] 0.3 10*3/uL Normal 0.0-0.4 [facility] Comment on above: Performed By: #### C BCA, BMP, 3298-7, 4024-6, 5643-2 #### [facility] ([id number]) [address] [place] [address] #### 04560-4 #### [facility] ([id number]) [address], [address] [place] [address] Eosinophils/100 WBC (Bld) 3.4 % Normal [facility] Comment on above: Performed By: #### C BCA, BMP, 3298-7, 4024-6, 5643-2 #### [facility] ([id number]) [address] [place] [address] #### 35999-8 #### [facility] ([id number]) [address], [address] [place] [address] Erythrocyte distribution width (RBC) [Ratio] 13.8 % Normal 11.5-15.0 [facility] Comment on above: Performed By: #### C BCA, BMP, 3298-7, 4024-6, 5643-2 #### [facility] ([id number]) [address] [place] [address] 30452 #### 92542-7 #### [facility] ([id number]) [address], [address] [place] [address] Hematocrit (Bld) [Volume fraction] 49.3 % High 39-49 [facility] Comment on above: Performed By: #### C BCA, BMP, 3298-7, 4024-6, 5643-2 #### [facility] ([id number]) [address] [place] [address]23 #### 47335-3 #### [facility] ([id number]) [address], [address] [place] [address] Hemoglobin (Bld) [Mass/Vol] 17.0 g/dL Normal 13.0-17.0 [facility] Comment on above: Performed By: #### C BCA, BMP, 3298-7, 4024-6, 5643-2 #### [facility] ([id number]) [address] [place] [address] 63450 #### 15340-0 #### [facility] ([id number]) [address], [address] [place] [address] Lymphocytes (Bld) [#/Vol] 3.3 10*3/uL Normal 1.0-3.5 [facility] Comment on above: Performed By: #### C BCA, BMP, 3298-7, 4024-6, 5643-2 #### [facility] ([id number]) [address] [place] [address] 41987 #### 95796-2 #### [facility] ([id number]) [address], [address] [place] [address] Lymphocytes/100 WBC (Bld) 38.2 % Normal [facility] Comment on above: Performed By: #### C BCA, BMP, 3298-7, 4024-6, 5643-2 #### [facility] ([id number]) [address] [place] [address] 05952 #### 03850-0 #### [facility] ([id number]) [address], [address] [place] [address] MCH (RBC) [Entitic mass] 30.2 pg Normal 27-34 [facility] Comment on above: Performed By: #### C BCA, BMP, 3298-7, 4024-6, 5643-2 #### [facility] ([id number]) [address] [place] [address] 30075 #### 75908-4 #### [facility] ([id number]) [address], [address] [place] [address] MCHC (RBC) [Mass/Vol] 34.4 g/dL Normal 32-36 [facility] Comment on above: Performed By: #### C BCA, BMP, 3298-7, 4024-6, 5643-2 #### [facility] ([id number]) [address] [place] [address] 10343 #### 39858-3 #### [facility] ([id number]) [address] [place] [address] MCV (RBC) [Entitic vol] 88 fL Normal 80-100 [facility] Comment on above: Performed By: #### C BCA, BMP, 3298-7, 4024-6, 5643-2 #### [facility] ([id number]) [address] [place] [address] 31207 #### 43765-7 #### [facility] ([id number]) [address], [address] [place] [address] Monocytes (Bld) [#/Vol] 0.6 10*3/uL Normal 0-0.9 [facility] Comment on above: Performed By: #### C BCA, BMP, 3298-7, 4024-6, 5643-2 #### [facility] ([id number]) [address] [place] [address] 08980 #### 13148-4 #### [facility] ([id number]) [address], [address] [place] [address] Monocytes/100 WBC (Bld) 6.6 % Normal [facility] Comment on above: Performed By: #### C BCA, BMP, 3298-7, 4024-6, 5643-2 #### [facility] ([id number]) [address] [place] [address] 26707 #### 66247-9 #### [facility] ([id number]) [address], [address] [place] [address] Neutrophils/100 WBC (Bld) 51.1 % Normal [facility] Comment on above: Performed By: #### C BCA, BMP, 3298-7, 4024-6, 5643-2 #### [facility] ([id number]) [address] [place] [address] 66130 #### 52350-9 #### [facility] ([id number]) [address], [address] [place] [address] Platelet mean volume (Bld) [Entitic vol] 7.6 fL Normal 7-12 [facility] Comment on above: Performed By: #### C BCA, BMP, 3298-7, 4024-6, 5643-2 #### [facility] ([id number]) [address] [place] [address] 45796 #### 68006-0 #### [facility] ([id number]) [address], [address] [place] [address] Platelets (Bld) [#/Vol] 291 10*3/uL Normal 150-450 [facility] Comment on above: Performed By: #### C BCA, BMP, 3298-7, 4024-6, 5643-2 #### [facility] ([id number]) [address] [place] [address] 53705 #### 94641-2 #### [facility] ([id number]) [address], [address] [place] [address] RBC COUNT 5.63 X10E12/L Normal 4.10-5.70 [facility] Comment on above: Performed By: #### C BCA, BMP, 3298-7, 4024-6, 5643-2 #### [facility] ([id number]) [address] [place] [address] 28055 #### 90536-3 #### [facility] ([id number]) [address] [facility] [place] [address] WBC (Bld) [#/Vol] 8.5 10*3/uL Normal 4.0-11.0 [facility] Comment on above: Performed By: #### C BCA, BMP, 3298-7, 4024-6, 5643-2 #### [facility] ([id number]) [address] [place] [address] 39461 #### 50869-3 #### [facility] ([id number]) [address] [facility] [place] [address] COMPREHENSIVE METABOLIC PANE Per 10-30-2024 Albumin [Mass/Vol] 4.4 g/dL Normal 3.2-5.3 [facility] Comment on above: Performed By: #### C BCA, BMP, 3298-7, 4024-6, 5643-2 #### [facility] ([id number]) [address] [place] [address] 62295 #### 70921-3 #### [facility] ([id number]) [address] [facility], [address] [place] [address] ALP [Catalytic activity/Vol] 48 U/L Normal 39-130 [facility] Comment on above: Performed By: #### C BCA, BMP, 3298-7, 4024-6, 5643-2 #### [facility] ([id number]) [address] [place] [address] 26683 #### 77136-1 #### [facility] ([id number]) [address] [facility], [address] [place] [address] ALT [Catalytic activity/Vol] 23 U/L Normal 0-40 [facility] Comment on above: Performed By: #### C BCA, BMP, 3298-7, 4024-6, 5643-2 #### [facility] ([id number]) [address] [place] [address] 95263 #### 85275-8 #### [facility] ([id number]) [address] [facility] [place] [address] Anion gap [Moles/Vol] 10 mmol/L Normal 5-15 [facility] Comment on above: Performed By: #### C BCA, BMP, 3298-7, 4024-6, 5643-2 #### [facility] ([id number]) [address] [place] [address] 53036 #### 62343-6 #### [facility] ([id number]) [address] [facility], [address] [place] [address] AST [Catalytic activity/Vol] 23 U/L Normal 0-41 [facility] Comment on above: Performed By: #### C BCA, BMP, 3298-7, 4024-6, 5643-2 #### [facility] ([id number]) [address] [place] [address] 76611 #### 88536-6 #### [facility] ([id number]) [address] [facility] [place] [address] Bilirubin [Mass/Vol] 1.0 mg/dL Normal 0.3-1.2 [facility] Comment on above: Performed By: #### C BCA, BMP, 3298-7, 4024-6, 5643-2 #### [facility] ([id number]) [address] [place] [address] 86857 #### 59229-9 #### [facility] ([id number]) [address] [place] [address] Calcium [Mass/Vol] 9.5 mg/dL Normal 8.5-10.5 [facility] Comment on above: Performed By: #### C BCA, BMP, 3298-7, 4024-6, 5643-2 #### [facility] ([id number]) [address] [place] [address] #### 94391-2 #### [facility] ([id number]) [address] [place] [address] Chloride [Moles/Vol] 104 mmol/L Normal 98-109 [facility] Comment on above: Performed By: #### C BCA, BMP, 3298-7, 4024-6, 5643-2 #### [facility] ([id number]) [address] [place] [address] 81710 #### 75621-8 #### [facility] ([id number]) [address] [place] [address] CO2 [Moles/Vol] 24 mmol/L Normal 22-32 [facility] Comment on above: Performed By: #### C BCA, BMP, 3298-7, 4024-6, 5643-2 #### [facility] ([id number]) [address] [place] [address] 96339 #### 39046-1 #### [facility] ([id number]) [address] [place] [address] Creatinine [Mass/Vol] 0.94 mg/dL Normal 0.60-1.30 [facility] Comment on above: Result Comment: METH OD TRACEABLE TO IDMS STANDARD Performed By: #### C ANA DAVIS, 3298-7, 4024-6, 5643-2 #### [facility] ([id number]) [address] [place] [address] 87931 #### 81206-4 #### [facility] ([id number]) [address] [facility] [facility] [address] [place] [address] eGFR (CKD-EPI) NON-RACE DEPENDENT >90 Normal >59 [facility] Comment on above: Result Comment: Reported eGFR is based on the CKD-EPI 2020 equation that does not use a race coefficient. Performed By: #### C ANA DAVIS, 3298-7, 4024-6, 5643-2 #### [facility] ([id number]) [address] [place] [address] 04763 #### 07363-1 #### [facility] ([id number]) [address] [facility] [address] [place] [address] Glucose [Mass/Vol] 89 mg/dL Normal 65-99 [facility] Comment on above: Performed By: #### C ANA DAVIS, 3298-7, 4024-6, 5643-2 #### [facility] ([id number]) [address] [place] [address] 00114 #### 45504-0 #### [facility] ([id number]) [address] [facility] [place] [address] Potassium [Moles/Vol] 4.0 mmol/L Normal 3.5-5.0 [facility] Comment on above: Performed By: #### C ANA DAVIS, 3298-7, 4024-6, 5643-2 #### [facility] ([id number]) [address] [place] [address] 54235 #### 57128-2 #### [facility] ([id number]) [address] [place] [address], [facility] [address] [place] [address] Protein [Mass/Vol] 6.9 g/dL Normal 6.0-8.0 [facility] Comment on above: Performed By: #### C ANA DAVIS, 3298-7, 4-6, 5643-2 #### [facility] ([id number]) [address] [place] [address] 39081 #### 42341-0 #### [facility] ([id number]) [address] [place] [address], [address] [place] [address] Sodium [Moles/Vol] 138 mmol/L Normal 134-146 [facility] Comment on above: Performed By: #### C ANA DAVIS, 3298-7, 4-6, 5643-2 #### [facility] ([id number]) [address] [place] [address] 23234 #### 19835-8 #### [facility] ([id number]) [address] [place] [address] Urea nitrogen [Mass/Vol] 14 mg/dL Normal 5-23 [facility] Comment on above: Performed By: #### C ANA DAVIS, 3298-7, 4024-6, 5643-2 #### [facility] ([id number]) [address] [place] [address] 83538 #### 23147-3 #### [facility] ([id number]) [address] [place] [address], [address] [address] DRUG SCREEN, URINEon 025 AMPHETAMINE/METHAMP Negative Normal NEG [facility] Comment on above: Result Comment: AMPH /METH screening cut off = 1000 ng/mL Performed By: #### C ANA DAVIS, 8-7, 4024-6, 5643-2 #### [facility] ([id number]) [address] [place] [address] 88921 #### 36074-6 #### [facility] ([id number]) [address] [place] [address] BARBITURATES Negative Normal NEG [facility] Comment on above: Result Comment: Yenifer iturates screening cut off value = 200 ng/mL Performed By: #### C BCA, BMP, 3298-7, 4024-6, 5643-2 #### [facility] ([id number]) [address] [place] [address] 06734 #### 10105-5 #### [facility] ([id number]) [address] [facility] [place] [address] BENZODIAZEPINES Positive Abnormal NEG [facility] Comment on above: Result Comment: Conf irmation available upon request. Benzodiazepines screening cut off value = 200 ng/mL Performed By: #### C BCA, BMP, 3298-7, 4024-6, 5643-2 #### [facility] ([id number]) [address] [place] [address] #### 21842-8 #### [facility] ([id number]) [address] [facility], [address] [place] [address] CANNABINOIDS Positive Abnormal NEG [facility] Comment on above: Result Comment: Conf irmation available upon request. Cannabinoids/THC screening cut off value = 50 ng/mL Performed By: #### C BCA, BMP, 3298-7, 4024-6, 5643-2 #### [facility] ([id number]) [address] [place] [address] 74392 #### 83061-3 #### [facility] ([id number]) [address] [facility], [address] [place] [address] COCAINE METABOLITE Negative Normal NEG [facility] Comment on above: Result Comment: Coca ine screening cut off value = 300 ng/mL Performed By: #### C BCA, BMP, 3298-7, 4024-6, 5643-2 #### [facility] ([id number]) [address] [place] [address] 27633 #### 13845-3 #### [facility] ([id number]) [address] [facility], [address] [place] [address] ECSTASY Negative Normal NEG [facility] Comment on above: Result Comment: Ecst asy screening cut off value = 500 ng/mL This report is intended for use in clinical monitoring or management of patients. Performed By: #### C BCA, BMP, 3298-7, 4024-6, 5643-2 #### [facility] ([id number]) [address] [place] [address] 39130 #### 73915-5 #### [facility] ([id number]) [address] [facility], [address] [place] [address] METHADONE Negative Normal NEG [facility] Comment on above: Result Comment: Meth adone screening cut off value = 300 ng/mL. Performed By: #### C BCA, BMP, 3298-7, 4024-6, 5643-2 #### [facility] ([id number]) [address] [place] [address] 76500 #### 93507-3 #### [facility] ([id number]) [address] [facility], [address] [place] [address] OPIATES Negative Normal [facility] Comment on above: Result Comment: Opia rolando screening cut off value = 300 ng/mL NOTE: This test is used for the detection of codeine, hydrocodone (>1000 ng/mL), morphine and hydromorphone (>900 ng/mL) in urine. Performed By: #### C BCA, BMP, 3298-7, 4024-6, 5643-2 #### [facility] ([id number]) [address] [place] [address] 05831 #### 68292-6 #### [facility] ([id number]) [address] [facility], [address] [place] [address] OXYCODONE Negative Normal NEG [facility] Comment on above: Result Comment: Oxyc odone screening cut off value = 300 ng/mL NOTE: This test is used for the detection of oxycodone and oxymorphone in urine. Performed By: #### C SUSAN BMP, 3298-7, 4024-6, 5643-2 #### [facility] ([id number]) [address] [place] [address] 78296 #### 17516-3 #### [facility] ([id number]) [address] [facility], [address] [place] [address] PHENCYCLIDINE Negative Normal NEG [facility] Comment on above: Result Comment: Phen cyclidine screening cut off value = 25 ng/mL Performed By: #### C ANA DAVIS, 3298-7, 4024-6, 5643-2 #### [facility] ([id number]) [address] [place] [address] 38819 #### 43664-3 #### [facility] ([id number]) [address] [facility], [address] [place] [address] ETHANOLon 10-30-2024 Ethanol [Mass/Vol] mg/dL Normal 0.00-0.08 [facility] Comment on above: Result Comment: This report is intended for use in clinical monitoring or management of patients. Performed By: #### C SUSAN, BMP, 3298-7, 4024-6, 5643-2 #### [facility] ([id number]) [address] [place] [address] 15997 #### 77533-0 #### [facility] ([id number]) [address] [facility], [address] [place] [address] MAGNESIUMon 10-30-2024 Magnesium [Mass/Vol] 2.2 mg/dL Normal 1.8-2.6 [facility] Comment on above: Performed By: #### C BCA, BMP, 3298-7, 4024-6, 5643-2 #### [facility] ([id number]) [address] [place] [address] #### 72413-4 #### [facility] ([id number]) [address] [place] [address], [address] [place] [address] SARS/FLU A+B/RSV by NAAT/Mol ecularon 10-30-2024 SARS/FLU A+B/RSV by NAAT/Molecular FLU A PCR Negative (qualifier value) FLU B PCR Negative (qualifier value) RSV by PCR Negative (qualifier value) SARS CoV 2 Not detected (qualifier value) NOTE The Xpert Xpress SARS-CoV-2/Flu/RSV Plus test is a rapid, multiplexed real-time RT-PCR test intended for the simultaneous qualitative detection and differentiation of SARS-CoV-2, influenza A, influenza B and respiratory syncytial virus (RSV) viral RNA from individuals suspected of respiratory viral infection consistent with COVID-19 by their healthcare provider. This test has not been validated in asymptomatic patients. The Xpert Xpress SARS-CoV-2 test is intended for use by qualified and trained operators who are performing tests using either TriOviz DX or Rentlytics systems and is limited to laboratories that meet the CLIA requirements to perform high and moderate complexity tests. The Xpert Xpress SARS-CoV-2/Flu/RSV Plus is only for use under the Food and Drug Administration's Emergency Use Authorization. Results are for the simultaneous detection and differentiation of SARS-CoV-2, influenza A, influenza B and RSV nucleic acids in clinical specimens. SARS-CoV-2, influenza A, influenza B and RSV RNA identified by this test are generally detectable in upper respiratory samples during the acute phase of infection. Positive results are indicative of the presence of the identified virus, but do not rule out bacterial infection or co-infection with other pathogens not detected by this test. Clinical correlation with patient history and other diagnostic information is necessary to determine patient infection status. The agent detected may not be the definite cause of disease. Negative results do not preclude SARS-CoV-2, influenza A, influenza B and RSV infection and should not be used as the sole basis for treatment or other patient management decisions. Negative results must be combined with clinical observations, patient history and epidemiological information. An Invalid result may occur with specimen-associated inhibition unable to be resolved with specimen repeat. Fact Sheet for Healthcare Providers: https://www.fda.gov/media/ 596814/download Fact Sheet for Patients: https://www.fda.gov/media/ 353268/download Normal [facility] Comment on above: Performed By: #### C SUSAN BMP, 3298-7, 4024-6, 5643-2 #### [facility] ([id number]) [address] [place] [address] 77968 #### 78912-0 #### [facility] ([id number]) [address] [place] [address], [address] [place] [address] Salicylates [Mass/Vol]on SALICYLATE <2.5 Normal 2.0-25.0 [facility] Comment on above: Result Comment: Refe rence ranges are for therapeutic limits. Performed By: #### C SUSAN, BMP, 3298-7, 4024-6, 5643-2 #### [facility] ([id number]) [address] [place] [address] 15578 #### 32762-3 #### [facility] ([id number]) [address] [place] [address], [address] [place] [address] THYROID PROFILEon 10-30-2024 Free T4 [Mass/Vol] 0.88 ng/dL Normal 0.61-1.60 [facility] Comment on above: Performed By: #### C SUSAN, BMP, 8-7, 4024-6, 5643-2 #### [facility] ([id number]) [address] [place] [address] #### 36266-2 #### [facility] ([id number]) [address] [place] [address], [address] [place] [address] TSH 2.81 uIU/mL Normal 0.49-4.67 [facility] Comment on above: Performed By: #### C SUSAN, BMP, 3298-7, 4024-6, 5643-2 #### [facility] ([id number]) [address] [place] [address] #### 33104-5 #### [facility] ([id number]) [address] [place] [address], [address] [place] [address] Tricyclic antidepressants [M ass/Vol]on 10-30-2024 TRICYCLICS Negative Normal NEG [facility] Comment on above: Performed By: #### C BCA, BMP, 3298-7, 4024-6, 5643-2 #### [facility] ([id number]) [address] [place] [address] #### 56720-6 #### [facility] ([id number]) [address] [place] [address], [address] [place] [address] URN MACROSCOPIC NURon 2024 BILIRUBIN CATIE Negative Normal NEG [facility] Comment on above: Performed By: #### C BCA, BMP, 8-7, 4024-6, 5643-2 #### [facility] ([id number]) [address] [place] [address] #### 42748-5 #### [facility] ([id number]) [address] [place] [address], [address] [place] [address] BLOOD/HGB CATIE Negative Normal NEG [facility] Comment on above: Performed By: #### C BCA, BMP, 3298-7, 4024-6, 5643-2 #### [facility] ([id number]) [address] [place] [address] #### 40515-3 #### [facility] ([id number]) [address] [place] [address], [address] [place] [address] GLUCOSE CATIE Negative Normal NEG [facility] Comment on above: Performed By: #### C BCA, BMP, 3298-7, 4024-6, 5643-2 #### [facility] ([id number]) [address] [place] [address] #### 32370-2 #### [facility] ([id number]) [address], [address] [place] [address] KETONES CATIE Negative Normal NEG [facility] Comment on above: Performed By: #### C BCA, BMP, 3298-7, 4024-6, 5643-2 #### [facility] ([id number]) [address] [place] [address] #### 28126-3 #### [facility] ([id number]) [address] [place] [address] LEUKOCYTE ESTERASE CATIE Negative Normal NEG [facility] Comment on above: Performed By: #### C BCA, BMP, 3298-7, 4024-6, 5643-2 #### [facility] ([id number]) [address] [place] [address] #### 29391-2 #### [facility] ([id number]) [address] [place] [address] NITRITE CATIE Negative Normal NEG [facility] Comment on above: Performed By: #### C BCA, BMP, 8-7, 4024-6, 5643-2 #### [facility] ([id number]) [address] [place] [address] 39639 #### 65592-6 #### [facility] ([id number]) [address] [place] [address] PH CATIE 6.0 Normal 5.0-8.5 [facility] Comment on above: Performed By: #### C BCA, BMP, 3298-7, 4024-6, 5643-2 #### [facility] ([id number]) [address] [place] [address] #### 82442-1 #### [facility] ([id number]) [address] [place] [address] PROTEIN CATIE Negative Normal NEG [facility] Comment on above: Performed By: #### C BCA, BMP, 3298-7, 4024-6, 5643-2 #### [facility] ([id number]) [address] [place] [address] 24371 #### 84229-8 #### [facility] ([id number]) [address] [place] [address] SPECIFIC GRAVITY CATIE 1.025 Normal 1.003-1.035 [facility] Comment on above: Performed By: #### C BCA, BMP, 3298-7, 4024-6, 5643-2 #### [facility] ([id number]) [address] [place] [address]68[address] #### 76046-7 #### [facility] ([id number]) [address] [place] [address] UROBILINOGEN CATIE 0.2 eu/dL Normal <1.1 [facility] Comment on above: Performed By: #### C BCA, BMP, 3298-7, 4024-6, 5643-2 #### [facility] ([id number]) [address] [place] [address] 22677 #### 90335-2 #### [facility] ([id number]) [address] [place] [address] XR CHEST 1 VWon 10-30-2024 XR CHEST 1 VW XR CHEST 1 VW Single view chest History:SOB Difficulty breathing, shortness of breath Comparison: 09/09/2024 Findings: Single portable view of the chest. Stable cardiomediastinal silhouette. There is no focal opacity, effusion or pneumothorax. Impression: No definitive acute cardiopulmonary process. Finalized by Marcio Marsh MD on 10/30/2024 6:24 PM Normal [facility] COVID-19 & Influenza Comboon 09-19-2024 Influenza A by PCR Not detected NOT DETECTED [facility] Influenza B by PCR Not detected NOT DETECTED [facility] Comment on above: Performed at [facility] [address] [place] [address] SARS-CoV-2 (COVID-19) RNA BRITTANY+probe Ql (Unsp spec) Not detected NOT DETECTED [facility] Comment on above: Not Detected results do not preclude SARS-CoV-2 infection and should not be used as the sole basis for patient management decisions. Results must be combined with clinical observations, patient history, and epidemiological information. Testing was performed using NATHANIEL Ilda SARS-CoV-2 and Influenza A/B nucleic acid assay. This test is a multiplex Real-Time Reverse Transcriptase Polymerase Chain Reaction (RT-PCR)-based in vitro diagnostic test intended for the qualitative detection of nucleic acids from SARS-CoV-2, influenza A, and influenza B in nasopharyngeal and nasal swab specimens. [facility] PCACC SARS-COV-2 & INFLUENZA A/[facility] 09-19-2024 FLU A PCR PCACC Not detected Normal NOT DETECTED [facility] Comment on above: Performed By: #### P CFLU #### [facility] [address] [facility] [address] [place] [address] FLU B PCR PCACC Not detected Normal NOT DETECTED [facility] Comment on above: Performed By: #### P CFLU #### [facility] [address] [address] SARS-CoV-2 (COVID-19) RNA BRITTANY+probe Ql (Unsp spec) Not detected Normal NOT DETECTED [facility] Comment on above: Result Comment: Not Detected results do not preclude SARS-CoV-2 infection and should not be used as the sole basis for patient management decisions. Results must be combined with clinical observations, patient history, and epidemiological information. Testing was performed using NATHANIEL Ilda SARS-CoV-2 and Influenza A/B nucleic acid assay. This test is a multiplex Real-Time Reverse Transcriptase Polymerase Chain Reaction (RT-PCR)-based in vitro diagnostic test intended for the qualitative detection of nucleic acids from SARS-CoV-2, influenza A, and influenza B in nasopharyngeal and nasal swab specimens. Performed By: #### P CFLU #### [facility] [address] [facility] [address] [facility] [address] ACETAMINOPHENon 09-17-2024 Acetaminophen [Mass/Vol] ug/mL Normal 0.0-20.0 [facility] Comment on above: Performed By: #### U R_CS #### [facility] [address] [place] [address] ANION GAP PCACCon 09-17-2024 Anion gap [Moles/Vol] 11.0 mmol/L Normal 8.0-16.0 [facility] Comment on above: ANION GAP = Sodium - (Chloride + CO2) Performed at [facility] [address] [place] [address] Result Comment: ANIO N GAP = Sodium -(Chloride + CO2) Performed By: #### P MG, PANIO, PETOH, PCMP, EGFRP, PCCBC ####[facility] [place] [address]#### ASAT, ACTM ####[facility] [address] [place] [address] CBC with Auto Differentialon 09-17-2024 Basophils (Bld) [#/Vol] 0.0 10*3/uL [facility] Basophils/100 WBC (Bld) 0.7 % 0.0 - 3.0 % [facility] Eosinophils Absolute 0.2 [facility] Eosinophils/100 WBC (Bld) 3.4 % 0.0 - 4.0 % [facility] Hematocrit (Bld) [Volume fraction] 44.4 % 42.0 - 52.0 % [facility] Hemoglobin (Bld) [Mass/Vol] 15.1 g/dL [facility] Immature Grans (Abs) 0.00 [facility] Comment on above: Performed at [facility] [address] [place] [address] Immature granulocytes/100 WBC (Bld) 0 % [facility] Interpretation and review of laboratory results Abnormal [facility] Lymphocytes Absolute 2.2 [facility] Lymphocytes/100 WBC (Bld) 32.1 % 15.0 - 47.0 % [facility] MCH (RBC) [Entitic mass] 29.8 pg 26.0 - 32.0 pg [facility] MCHC (RBC) [Mass/Vol] 34.0 g/dL [facility] MCV (RBC) [Entitic vol] 87.6 fL 80.0 - 94.0 fL [facility] Monocytes 0.5 [facility] Monocytes/100 WBC (Bld) 7.4 % 0.0 - 12.0 % [facility] Neutrophils Absolute 3.8 [facility] Platelet distribution width (Bld) [Ratio] 12.8 % 11.5 - 14.9 % [facility] Platelet mean volume (Bld) [Entitic vol] 9.1 fL Low 9.4 - 12.4 fL [facility] Platelets (Bld) [#/Vol] 231 10*3/uL [facility] RBC (Bld) [#/Vol] 5.07 10*6/uL [facility] Segmented neutrophils/100 WBC (Bld) 56.3 % 43.0 - 75.0 % [facility] WBC (Bld) [#/Vol] 6.8 10*3/uL [facility] CBC, AUTOMATEDon 09-17-2024 ABS BASOPHILS 0.0 thou/mm3 Normal 0.0-0.1 [facility] Comment on above: Performed By: #### P MG, PANIO, PETOH, PCMP, EGFRP, PCCBC ####[place] [address]#### ASAT, ACTM ####[facility] [address] [place] [address] ABS EOSINOPHILS 0.2 thou/mm3 Normal 0.0-0.5 [facility] Comment on above: Performed By: #### P MG, PANIO, PETOH, PCMP, EGFRP, PCCBC ####[place] [address]#### ASAT, ACTM ####[place] [address] [place] [address] ABS IMMATURE GRANS (IG) 0.00 thou/mm3 Normal 0.00-0.07 [facility] Comment on above: Performed By: #### P MG, PANIO, PETOH, PCMP, EGFRP, PCCBC ####[facility] [place] [address]#### ASAT, ACTM ####[facility] [address] [place] [address] ABS LYMPHOCYTES 2.2 thou/mm3 Normal 1.0-4.8 [facility] Comment on above: Performed By: #### P MG, PANIO, PETOH, PCMP, EGFRP, PCCBC ####[facility] [place] [address]#### ASAT, ACTM ####[facility] [address] [place] [address] ABS MONOCYTES 0.5 thou/mm3 Normal 0.3-1.3 [facility] Comment on above: Performed By: #### P MG, PANIO, PETOH, PCMP, EGFRP, PCCBC ####[facility] [place] [address]#### ASAT, ACTM ####[facility] [address] [place] [address] ABS NEUTROPHILS 3.8 thou/mm3 Normal 1.8-7.7 [facility] Comment on above: Performed By: #### P MG, PANIO, PETOH, PCMP, EGFRP, PCCBC ####[facility] [place] [address]#### ASAT, ACTM ####[facility] [address] [place] [address] Basophils/100 WBC (Bld) 0.7 % Normal 0.0-3.0 [facility] Comment on above: Performed By: #### P MG, PANIO, PETOH, PCMP, EGFRP, PCCBC ####[facility] [place] [address]#### ASAT, ACTM ####[facility] [address] [place] [address] Eosinophils/100 WBC (Bld) 3.4 % Normal 0.0-4.0 [facility] Comment on above: Performed By: #### P MG, PANIO, PETOH, PCMP, EGFRP, PCCBC ####[facility] [place] [address]#### ASAT, ACTM ####[facility] [address] [place] [address] Erythrocyte distribution width (RBC) [Ratio] 12.8 % Normal 11.5-14.9 [facility] Comment on above: Performed By: #### P MG, PANIO, PETOH, PCMP, EGFRP, PCCBC ####[facility] [place] [address]#### ASAT, ACTM ####[facility] [address] [place] [address] Hematocrit (Bld) [Volume fraction] 44.4 % Normal 42.0-52.0 [facility] Comment on above: Performed By: #### P MG, PANIO, PETOH, PCMP, EGFRP, PCCBC ####[facility] [place] [address]#### ASAT, ACTM ####[facility] [address] [place] [address] Hemoglobin (Bld) [Mass/Vol] 15.1 g/dL Normal 14.0-18.0 [facility] Comment on above: Performed By: #### P MG, PANIO, PETOH, PCMP, EGFRP, PCCBC ####[facility] [place] [address]#### ASAT, ACTM ####[facility] [address] [place] [address] IMMATURE GRANS (IG) 0 % Normal [facility] Comment on above: Performed By: #### P MG, PANIO, PETOH, PCMP, EGFRP, PCCBC ####[place] [address]#### ASAT, ACTM ####[facility] [address] [place] [id number] Lymphocytes/100 WBC (Bld) 32.1 % Normal 15.0-47.0 [facility] Comment on above: Performed By: #### P MG, PANIO, PETOH, PCMP, EGFRP, PCCBC ####[facility] [place] [address]#### ASAT, ACTM ####[facility] [address] [place] [address] MCH (RBC) [Entitic mass] 29.8 pg Normal 26.0-32.0 [facility] Comment on above: Performed By: #### P MG, PANIO, PETOH, PCMP, EGFRP, PCCBC ####[place] [address] [place] [address]#### ASAT, ACTM ####[facility] [address] [place] [address] MCHC (RBC) [Mass/Vol] 34.0 g/dL Normal 31.0-35.0 [facility] Comment on above: Performed By: #### P MG, PANIO, PETOH, PCMP, EGFRP, PCCBC ####[facility] [place] [address]#### ASAT, ACTM ####[facility] [address] [place] [address] MCV (RBC) [Entitic vol] 87.6 fL Normal 80.0-94.0 [facility] Comment on above: Performed By: #### P MG, PANIO, PETOH, PCMP, EGFRP, PCCBC ####[facility] [place] [address]#### ASAT, ACTM ####[facility] [address] [place] [id number] Monocytes/100 WBC (Bld) 7.4 % Normal 0.0-12.0 [facility] Comment on above: Performed By: #### P MG, PANIO, PETOH, PCMP, EGFRP, PCCBC ####[place] [address]#### ASAT, ACTM ####[facility] [address] [place] [address] PLATELET 231 thou/mm3 Normal 130-400 [facility] Comment on above: Performed By: #### P MG, PANIO, PETOH, PCMP, EGFRP, PCCBC ####[facility] [place] [address]#### ASAT, ACTM ####[facility] [address] [place] [address] Platelet mean volume (Bld) [Entitic vol] 9.1 fL Low 9.4-12.4 [facility] Comment on above: Performed By: #### P MG, PANIO, PETOH, PCMP, EGFRP, PCCBC ####[facility] [place] [address]#### ASAT, ACTM ####[facility] [address] [place] [address] RBC 5.07 mill/mm3 Normal 4.50-6.10 [facility] Comment on above: Performed By: #### P MG, PANIO, PETOH, PCMP, EGFRP, PCCBC ####[facility] [place] [address]#### ASAT, ACTM ####[facility] [address] [place] [address] SEGS 56.3 % Normal 43.0-75.0 [facility] Comment on above: Performed By: #### P MG, PANIO, PETOH, PCMP, EGFRP, PCCBC ####[facility] [place] [address]#### ASAT, ACTM ####[facility] [address] [place] [address] WBC 6.8 thou/mm3 Normal 4.8-10.8 [facility] Comment on above: Performed By: #### P MG, PANIO, PETOH, PCMP, EGFRP, PCCBC ####[facility] [place] [address]#### ASAT, ACTM ####[facility] [address] [place] [address] COMP. METABOLIC PANELon 11-2 Albumin [Mass/Vol] 3.4 g/dL Normal 3.4-5.0 [facility] Comment on above: Performed By: #### P MG, PANIO, PETOH, PCMP, EGFRP, PCCBC ####[place] [address]#### ASAT, ACTM ####[facility] [address] [place] [address] ALP [Catalytic activity/Vol] 66 U/L Normal 46-116 [facility] Comment on above: Performed By: #### P MG, PANIO, PETOH, PCMP, EGFRP, PCCBC ####[place] [address]#### ASAT, ACTM ####[place] [address] ALT [Catalytic activity/Vol] 36 U/L Normal 14-63 [facility] Comment on above: Result Comment: Sulf asalazine and Sulfapyridine may interfere with testing and cause false results. For patients taking these medications, it is recommended that venipuncture occur prior to adminstra- tion of these drugs. Performed By: #### P MG, PANIO, PETOH, PCMP, EGFRP, PCCBC ####[place] [address]#### ASAT, ACTM ####[place] [address] AST [Catalytic activity/Vol] 21 U/L Normal 15-37 [facility] Comment on above: Result Comment: Sulf asalazine and Sulfapyridine may interfere with testing and cause false results. For patients taking these medications, it is recommended that venipuncture occur prior to adminstra- tion of these drugs. Performed By: #### P MG, PANIO, PETOH, PCMP, EGFRP, PCCBC ####[place] [address]#### ASAT, ACTM ####[facility] [address] [place] [address] Bilirubin [Mass/Vol] 0.7 mg/dL Normal 0.2-1.0 [facility] Comment on above: Performed By: #### P MG, PANIO, PETOH, PCMP, EGFRP, PCCBC ####[facility] [place] [address]#### ASAT, ACTM ####[facility] [address] [place] [address] Calcium [Mass/Vol] 8.8 mg/dL Normal 8.5-10.1 [facility] Comment on above: Performed By: #### P MG, PANIO, PETOH, PCMP, EGFRP, PCCBC ####[facility] [place] [address]#### ASAT, ACTM ####[facility] [address] [place] [address] Chloride [Moles/Vol] 102 mmol/L Normal 98-107 [facility] Comment on above: Performed By: #### P MG, PANIO, PETOH, PCMP, EGFRP, PCCBC ####[facility] [place] [address]#### ASAT, ACTM ####[facility] [address] [place] [address] CO2 [Moles/Vol] 24 mmol/L Normal 21-32 [facility] Comment on above: Performed By: #### P MG, PANIO, PETOH, PCMP, EGFRP, PCCBC ####[facility] [place] [address]#### ASAT, ACTM ####[facility] [address]ub[address] [place] [address] Creatinine [Mass/Vol] 0.8 mg/dL Normal 0.6-1.3 [facility] Comment on above: Performed By: #### P MG, PANIO, PETOH, PCMP, EGFRP, PCCBC ####[facility] [place] [address]#### ASAT, ACTM ####[facility] [address] [place] [address] Glucose [Mass/Vol] 106 mg/dL Normal 74-106 [facility] Comment on above: Sulfasalazine and Olmedo lfapyridine may interfere with testing and cause false results. For patients taking these medications, it is recommended that venipuncture occur prior to adminstra- tion of these drugs. Result Comment: Sulf asalazine and Sulfapyridine may interfere with testing and cause false results. For patients taking these medications, it is recommended that venipuncture occur prior to adminstra- tion of these drugs. Performed By: #### P MG, PANIO, PETOH, PCMP, EGFRP, PCCBC ####[place] [address]#### ASAT, ACTM ####[facility] [address] [place] [address] Potassium [Moles/Vol] 3.8 mmol/L Normal 3.5-5.1 [facility] Comment on above: Performed By: #### P MG, PANIO, PETOH, PCMP, EGFRP, PCCBC ####[place] [address]#### ASAT, ACTM ####[facility] [address] [place] [phone] Protein [Mass/Vol] 6.8 g/dL Normal 6.4-8.2 [facility] Comment on above: Performed By: #### P MG, PANIO, PETOH, PCMP, EGFRP, PCCBC ####[place] [address]#### ASAT, ACTM ####[facility] [address] [place] [phone] Sodium [Moles/Vol] 137 mmol/L Normal 136-145 [facility] Comment on above: Performed By: #### P MG, PANIO, PETOH, PCMP, EGFRP, PCCBC ####[place] [address]#### ASAT, ACTM ####[facility] [address] [place] [address] Urea nitrogen [Mass/Vol] 7 mg/dL Normal 7-18 [facility] Comment on above: Performed By: #### P MG, PANIO, PETOH, PCMP, EGFRP, PCCBC ####[facility] [place] [address]#### ASAT, ACTM ####[facility] [address] [place] [phone] Comprehensive metabolic 2000 panelon 09-17-2024 Albumin BCP dye [Mass/Vol] 3.4 [facility] [employer] ALT With P-5'-P [Catalytic activity/Vol] 36 U/L 14 - 63 U/L [facility] Comment on above: Sulfasalazine and Olmedo lfapyridine may interfere with testing and cause false results. For patients taking these medications, it is recommended that venipuncture occur prior to adminstra- tion of these drugs. Performed at [facility] [address] [place] [address] AST With P-5'-P [Catalytic activity/Vol] 21 U/L 15 - 37 U/L [facility] Comment on above: Sulfasalazine and Olmedo lfapyridine may interfere with testing and cause false results. For patients taking these medications, it is recommended that venipuncture occur prior to adminstra- tion of these drugs. EKG 12-LEADon 09-17-2024 EKG 12-LEAD 63 63 162 78 [phone] 51 Normal sinus rhythm Normal ECG When compared with ECG of 08-JUN-2024 16:02, Nonspecific T wave abnormality no longer evident in Lateral leads Confirmed by JEN HARGROVE MD ([id number]) on 09/18/2024 12:17:02 AM [email or web address] TestByDateTime?PatientID=[id number]&Date=17-09-2024&T arnoldo=[id number]&Test Type=ECG&Site=3&OutputType =PDF&Ext=PDF Normal [facility] ETHYL ALCOHOLon 09-17-2024 ANALYZED BY BURHE [facility] Comment on above: Performed By: #### P MG, PANIO, PETOH, PCMP, EGFRP, PCCBC ####[facility] [employer] [address] [address]#### ASAT, ACTM ####[facility] [address] [place] [address] DATE DRAWN 09/17/24 [facility] Comment on above: Performed By: #### P MG, PANIO, PETOH, PCMP, EGFRP, PCCBC ####[facility] [employer] Worker [address] [address]#### ASAT, ACTM ####[facility] [address] [place] [address] METHODOLOGY XPAND [facility] Comment on above: Performed By: #### P MG, PANIO, PETOH, PCMP, EGFRP, PCCBC ####[facility] [address] [address]#### ASAT, ACTM ####[facility] [address] [place] [address] SPECIMEN DRAWN BY rn [facility] Comment on above: Performed By: #### P MG, PANIO, PETOH, PCMP, EGFRP, PCCBC ####[facility] [address]#### ASAT, ACTM ####[facility] [address] [place] [address] TIME DRAWN 1420 [facility] Comment on above: Performed By: #### P MG, PANIO, PETOH, PCMP, EGFRP, PCCBC ####[facility] [address] [address]#### ASAT, ACTM ####[facility] [address] [place] [address] ETHYL ALCOHOL 0.04 % (gm/dl) Normal 0.00 [facility] Comment on above: Performed By: #### P MG, PANIO, PETOH, PCMP, EGFRP, PCCBC ####[facility] [place] [id number]#### ASAT, ACTM ####[facility] [address] [place] [address] ETOHon 09-17-2024 ANALYZED BY: [employer] Date Of Collection 09/17/24 [employer] Comment on above: Performed at [facility] [address] [place] [address] Drawn By rn [facility] Ethanol [Mass/Vol] 0.04 mg/dL 0.00 % (gm/dl) [employer] Methodology [employer] Time Collected 1420 [employer] GFR, ESTIMATED, PCACCon 08-27 ESTIMATED GFR, PCACC > 90 Normal >60 [facility] Comment on above: Result Comment: Yobani atric calculator link https://www.kidney.org/professionals/kdoqi/gfr_calculatorped Effective Jul 28, 2022 These results are not intended for use in patients <18 years of age. eGFR results are calculated without a race factor using the 2020 CKD-EPI equation. Careful clinical correlation is recommended, particularly when comparing to results calculated using previous equations. The CKD-EPI equation is less accurate in patients with extremes of muscle mass, extra-renal metabolism of creatinine, excessive creatine ingestion, or following therapy that affects renal tubular secretion. Performed By: #### P MG, PANIO, PETOH, PCMP, EGFRP, PCCBC ####[facility] [place] [id number]#### ASAT, ACTM ####[facility] [address] [place] [phone] Glomerular Filtration Rate, Estimatedon 09-17-2024 GFR/1.73 sq M.predicted MDRD (S/P/Bld) [Vol rate/Area] mL/min/{1.73_m2} - PINF [employer] Comment on above: Pediatric calculator link https://www.kidney.org/professionals/kdoqi/gfr_calculatorped Effective Jul 28, 2022 These results are not intended for use in patients <18 years of age. eGFR results are calculated without a race factor using the 2020 CKD-EPI equation. Careful clinical correlation is recommended, particularly when comparing to results calculated using previous equations. The CKD-EPI equation is less accurate in patients with extremes of muscle mass, extra-renal metabolism of creatinine, excessive creatine ingestion, or following therapy that affects renal tubular secretion. Performed at [facility] [address] [place] [address] MAGNESIUMon 09-17-2024 Magnesium [Mass/Vol] 2.1 mg/dL Normal 1.8-2.4 [facility] Comment on above: Performed at [facility] [address] [place] [address] Performed By: #### P MG, PANIO, PETOH, PCMP, EGFRP, PCCBC ####[facility] [address]#### ASAT, ACTM ####[facility] [facility] [address] [place] [address] No Panel Informationon 09-17 [facility] SALICYLATEon 09-17-2024 SALICYLATE < 0.3 Low 2.0-10.0 [facility] Comment on above: Performed By: #### U R_CS #### [facility] [address] [place] [address] .eGFRon 09-14-2024 GFR/1.73 sq M.predicted MDRD (S/P/Bld) [Vol rate/Area] mL/min/{1.73_m2} Normal >=60 [facility] [facility] Comment on above: Result Comment: [facility] have implemented the eGFR calculation approach that does not have a coefficient for race and that conforms to the NKF-ASN Task Force Recommendations.Stages of Chronic Kidney Disease GFRStage 3a Mild to moderate loss of kidney function 59 to 45Stage 3b Moderate to severe loss of kidney function 44 to 33Stage 4 Severe loss of kidney function 29 to 15Stage 5 Kidney failure Less than 15GFR calculated using the CKD-Epi Creatinine Equation (2020):eGFR = 142 X min(SCr/?, 1)? X max(SCr /?, 1)-1.200 X 0.9938Age X 1.012 [if female]Abbreviations/Units:eGFR (estimated glomerular filtration rate) = mL/min/1.73 m2SCr (standardized serum creatinine) = mg/dL? = 0.7 (females) or 0.9 (males)? = -0.241 (females) or -0.302 (males)min = indicates the minimum of SCr/? or 1max = indicates the maximum of SCr/? or 1Age = years Performed By: #### E GFR ####[address] [address] Abstracton 09-14-2024 Abstract [id number] Frantz Villarreal C 1985 M Date Provider Department Center 09/14/2024 [facility] Medical C Family History Problem Relation Age of Onset No Known Problems Mother No Known Problems Father No Known Problems Sister No Known Problems Brother No Known Problems Mother's Sister No Known Problems Father's Sister No Known Problems Mother's Brother No Known Problems Father's Brother No Known Problems Maternal Grandfather No Known Problems Maternal Grandmother No Known Problems Paternal Grandfather No Known Problems Paternal Grandmother No Known Problems Other Family Status - Relation Status Age at Mother Father Sister Brother Mother's Sister Father's Sister Mother's Brother Father's Brother Maternal Grandfather Maternal Grandmother Paternal Grandfather Paternal Grandmother Other Normal [facility] CMPon 09-14-2024 Albumin [Mass/Vol] 3.9 g/dL Normal 3.2-4.9 [facility] Comment on above: Performed By: #### C OMP ####[address] [address] Albumin/Globulin [Mass ratio] 1.3 {ratio} Normal 1.1-2.2 [facility] Comment on above: Performed By: #### C OMP ####[address] [place] [address] Alk Phos 47 IU/L Normal 32-91 [facility] Comment on above: Performed By: #### C OMP ####[address] [place] [address] ALT [Catalytic activity/Vol] 31 U/L Normal 17-63 [facility] Comment on above: Performed By: #### C OMP ####[address] [place] [address] Anion gap [Moles/Vol] 9 mmol/L Normal 4-12 [facility] Comment on above: Performed By: #### C OMP ####[address] [place] [address] AST [Catalytic activity/Vol] 27 U/L Normal 15-41 [facility] Comment on above: Performed By: #### C OMP ####[address] [address] Bili Total 1.1 mg/dL Normal 0.3-1.2 [facility] Comment on above: Performed By: #### C OMP ####[address] [address] Calcium [Mass/Vol] 8.8 mg/dL Normal 8.5-10.3 [facility] Comment on above: Performed By: #### C OMP ####[address] [place] [address] Chloride [Moles/Vol] 103 mmol/L Normal 98-110 [facility] Comment on above: Performed By: #### C OMP ####[address] [place] [address] CO2 [Moles/Vol] 24 mmol/L Normal 22-32 [facility] Comment on above: Performed By: #### C OMP ####[address] [place] [address] Creatinine [Mass/Vol] 0.95 mg/dL Normal 0.61-1.24 [facility] Comment on above: Performed By: #### C OMP ####[address] [place] [address] Glucose [Mass/Vol] 93 mg/dL Normal 70-99 [facility] Comment on above: Performed By: #### C OMP ####[address] [address] Potassium [Moles/Vol] 3.9 mmol/L Normal 3.4-4.8 [facility] Comment on above: Performed By: #### C OMP ####[id number] Protein [Mass/Vol] 6.8 g/dL Normal 6.5-8.1 [facility] Comment on above: Performed By: #### C OMP ####[id number] Sodium [Moles/Vol] 136 mmol/L Normal 133-142 [facility] Comment on above: Performed By: #### C OMP ####[id number] Urea nitrogen [Mass/Vol] 15 mg/dL Normal 8-26 [facility] Comment on above: Performed By: #### C OMP ####[id number] Urea nitrogen/Creatinine [Mass ratio] 15.8 mg/mg Normal 10.0-20.0 [facility] Comment on above: Performed By: #### C OMP ####[id number] Inpatient Clinical Summaryon 09-14-2024 Inpatient Clinical Summary Normal [facility] Magnesiumon 09-14-2024 Magnesium [Mass/Vol] 2.3 mg/dL Normal 1.7-2.4 [facility] Comment on above: Performed By: #### M G ####[id number] .Fentanyl Scrn wo Conf,Uron 09-13-2024 Ur Fentanyl Scrn Negative Normal NEG <1.0 [facility] Comment on above: Performed By: #### C D:[id number] ####[address] [address] Ur Fentanyl Scrn Qnt 0.23 ng/mL Normal <=0.99 [facility] Comment on above: Performed By: #### C D:[id number] ####[address] [address] .eGFRon 09-13-2024 GFR/1.73 sq M.predicted MDRD (S/P/Bld) [Vol rate/Area] mL/min/{1.73_m2} Normal >=60 [facility] Comment on above: Result Comment: [facility] have implemented the eGFR calculation approach that does not have a coefficient for race and that conforms to the NKF-ASN Task Force Recommendations.Stages of Chronic Kidney Disease GFRStage 3a Mild to moderate loss of kidney function 59 to 45Stage 3b Moderate to severe loss of kidney function 44 to 33Stage 4 Severe loss of kidney function 29 to 15Stage 5 Kidney failure Less than 15GFR calculated using the CKD-Epi Creatinine Equation (2020):eGFR = 142 X min(SCr/?, 1)? X max(SCr /?, 1)-1.200 X 0.9938Age X 1.012 [if female]Abbreviations/Units:eGFR (estimated glomerular filtration rate) = mL/min/1.73 m2SCr (standardized serum creatinine) = mg/dL? = 0.7 (females) or 0.9 (males)? = -0.241 (females) or -0.302 (males)min = indicates the minimum of SCr/? or 1max = indicates the maximum of SCr/? or 1Age = years Performed By: #### E GFR ####[address] [address] B12/Folate Lvlon 09-13-2024 Cobalamin (Vitamin B12) [Mass/Vol] 423 pg/mL Normal 180-914 [facility] Comment on above: Performed By: #### B 12FO ####[address] [address] Folate Lvl >22.3 Normal >=5.9 [facility] Comment on above: Result Comment: A [facility] Technical Consultation has determined that deficient Folate concentrations are considered to be less than 4 ng/mL. Performed By: #### B 12FO ####[address] [address] CBC w/ Diffon 09-13-2024 Erythrocyte distribution width (RBC) [Ratio] 13.3 % Normal 11.6-14.8 [facility] Comment on above: Performed By: #### C BC ####[id number] Hematocrit (Bld) [Volume fraction] 48.1 % Normal 41.0-53.0 [facility] Comment on above: Performed By: #### C BC ####[id number] Hemoglobin (Bld) [Mass/Vol] 16.4 g/dL Normal 13.5-17.5 [facility] Comment on above: Performed By: #### C BC ####[id number] MCH (RBC) [Entitic mass] 29.8 pg Normal 27.0-35.0 [facility] Comment on above: Performed By: #### C BC ####[address] MCHC 34.1 % Normal 31.0-37.0 [facility] Comment on above: Performed By: #### C BC ####[address] MCV (RBC) [Entitic vol] 87.6 fL Normal 80.0-100.0 [facility] Comment on above: Performed By: #### C BC ####[id number] Platelet 274 x10*3/mcL Normal 150-450 [facility] Comment on above: Performed By: #### C BC ####[address] [address] Platelet mean volume (Bld) [Entitic vol] 7.3 fL Normal 6.7-10.6 [facility] Comment on above: Performed By: #### C BC ####[id number] RBC 5.49 x10*6/mcL Normal 4.30-5.80 [facility] Comment on above: Performed By: #### C BC ####[address] [address] WBC 8.0 x10*3/mcL Normal 4.5-11.0 [facility] Comment on above: Performed By: #### C BC ####[address] [address] CMPon 09-13-2024 Albumin [Mass/Vol] 4.5 g/dL Normal 3.2-4.9 [facility] Comment on above: Performed By: #### C OMP ####[address] [address] Albumin/Globulin [Mass ratio] 1.5 {ratio} Normal 1.1-2.2 [facility] Comment on above: Performed By: #### C OMP ####[address] [address] Alk Phos 55 IU/L Normal 32-91 [facility] Comment on above: Performed By: #### C OMP ####[address] [address] ALT [Catalytic activity/Vol] 37 U/L Normal 17-63 [facility] Comment on above: Performed By: #### C OMP ####[address] [address] Anion gap [Moles/Vol] 8 mmol/L Normal 4-12 [facility] Comment on above: Performed By: #### C OMP ####[address] [address] AST [Catalytic activity/Vol] 33 U/L Normal 15-41 [facility] Comment on above: Performed By: #### C OMP ####[address] [address] Bili Total 1.8 mg/dL High 0.3-1.2 [facility] Comment on above: Performed By: #### C OMP ####[address] [address] Calcium [Mass/Vol] 9.1 mg/dL Normal 8.5-10.3 [facility] Comment on above: Performed By: #### C OMP ####[address] [address] Chloride [Moles/Vol] 101 mmol/L Normal 98-110 [facility] Comment on above: Performed By: #### C OMP ####[address] [address] CO2 [Moles/Vol] 23 mmol/L Normal 22-32 [facility] Comment on above: Performed By: #### C OMP ####[address] [address] Creatinine [Mass/Vol] 1.04 mg/dL Normal 0.61-1.24 [facility] Comment on above: Performed By: #### C OMP ####[address] [address] Glucose [Mass/Vol] 105 mg/dL High 70-99 [facility] Comment on above: Performed By: #### C OMP ####[address] [address] Potassium [Moles/Vol] 4.2 mmol/L Normal 3.4-4.8 [facility] Comment on above: Performed By: #### C OMP ####[address] [address] Protein [Mass/Vol] 7.6 g/dL Normal 6.5-8.1 [facility] Comment on above: Performed By: #### C OMP ####[address] [address] Sodium [Moles/Vol] 132 mmol/L Low 133-142 [facility] Comment on above: Performed By: #### C OMP ####[address] [address] Urea nitrogen [Mass/Vol] 13 mg/dL Normal 8-26 [facility] Comment on above: Performed By: #### C OMP ####[address] Urea nitrogen/Creatinine [Mass ratio] 12.5 mg/mg Normal 10.0-20.0 [facility] Comment on above: Performed By: #### C OMP ####[address] [address] CoV2 Quadon 09-13-2024 Influenza A PCR Negative Normal Negative [facility] Comment on above: Performed By: #### C D:[id number] ####[address] [address] Influenza B PCR Negative Normal Negative [facility] Comment on above: Performed By: #### C D:[id number] ####[address] LAB ONLY Result Called? No Normal [facility] Comment on above: Performed By: #### C D:[id number] ####[address] RSV PCR Negative Normal Negative [facility] Comment on above: Result Comment: Resu lts from the Xpert Flu/RSV XC Assay should be interpreted with other laboratory and clinical data available to the clinician. Negative results do not preclude influenza virus or RSV infection and should not be used as the sole basis for treatment or other patient management decisions. False negative results may occur if the virus is present at levels below the analytical limit of detection. Recent exposure to FluMist or other live, attenuated influenza vaccines may cause inaccurate positive results. Performed By: #### C D:[id number] ####[address] SARS-CoV-2 RNA Detection Negative Normal Negative [facility] Comment on above: Result Comment: The 2019 novel coronavirus SARS-CoV-2 target nucleic acids are not detected.The Xpert Xpress SARS-CoV-2/Flu/RSV plus test is a rapid, multiplexed real-time RT-PCR test intended for the simultaneous qualitative detection and differentiation of SARS-CoV-2, influenza A, influenza B, and respiratory syncytial virus (RSV) viral RNA in either nasopharyngeal swab or nasal swab collected from individuals suspected of respiratory viral infection consistent with COVID-19 by their healthcare provider. Performed By: #### C D:[id number] ####[address] [address] Diff Autoon 09-13-2024 Baso Absolute 0.1 x10*3/mcL Normal 0.0-0.2 [facility] Comment on above: Performed By: #### . Automated Diff ####[address] [address] Basophils/100 WBC (Bld) 1.0 % Normal 0.0-1.2 [facility] Comment on above: Performed By: #### . Automated Diff ####[address] [address] Eos Absolute 0.3 x10*3/mcL Normal 0.0-0.4 [facility] Comment on above: Performed By: #### . Automated Diff ####[address] [address] Eosinophils/100 WBC (Bld) 3.2 % Normal 0.0-6.1 [facility] Comment on above: Performed By: #### . Automated Diff ####[address] [address] Lymph Absolute 2.8 x10*3/mcL Normal 1.0-4.8 [facility] Comment on above: Performed By: #### . Automated Diff ####[address] [address] Lymphocytes/100 WBC (Bld) 34.6 % Normal 27.2-40.8 [facility] Comment on above: Performed By: #### . Automated Diff ####[address] [address] [place] Absolute 0.9 x10*3/mcL Normal 0.3-1.1 [facility] Comment on above: Performed By: #### . Automated Diff ####[address] [address] Monocytes/100 WBC (Bld) 10.7 % Normal 4.7-13.9 [facility] Comment on above: Performed By: #### . Automated Diff ####[address] [address] Neutro Absolute 4.0 x10*3/mcL Normal 1.8-7.7 [facility] Comment on above: Performed By: #### . Automated Diff ####[address] Neutro Auto 50.5 % Normal 47.2-70.8 [facility] Comment on above: Performed By: #### . Automated Diff ####[address] ED Clinical Summaryon 2023 ED Clinical Summary Normal [facility] ED Note-Nursingon 09-13-2024 ED Note-Nursing Normal [facility] ED Note-Physicianon 09-13-20 ED Note-Physician Normal [facility] Ethanolon 09-13-2024 Ethanol, Plasma <10 Normal <=9 [facility] Comment on above: Result Comment: To c onvert mg/dL to g/dL, divide result by 1,000. Legal limit of intoxication is 80 mg/dL (0.08 g/dL). Performed By: #### A LC ####[place] [address] Magnesiumon 09-13-2024 Magnesium [Mass/Vol] 2.1 mg/dL Normal 1.7-2.4 [facility] Comment on above: Performed By: #### M G ####[place] [address] UDS Compon 09-13-2024 Creatinine [Mass/Vol] 65.9 mg/dL Normal [facility] Comment on above: Performed By: #### C D:[id number] ####[address] [address] Ur Amph Scrn Negative Normal NEG = <1000 [facility] Comment on above: Performed By: #### C D:[id number] ####[address] [address] Ur Yenifer Scrn Negative Normal NEG = <200 [facility] Comment on above: Performed By: #### C D:[id number] ####[address] [address] Ur Benzodia Scrn Positive Abnormal NEG = <200 [facility] Comment on above: Result Comment: This unconfirmed positive screening result is to be used for medical treatment purposes only. Unconfirmed screening results must not be used for non-medical purposes (e.g. employment testing, legal testing). Performed By: #### C D:[id number] ####[address] Ur Cannab Scrn Positive Abnormal NEG = <50 [facility] Comment on above: Result Comment: This unconfirmed positive screening result is to be used for medical treatment purposes only. Unconfirmed screening results must not be used for non-medical purposes (e.g. employment testing, legal testing). Performed By: #### C D:[id number] ####[address] [address] Ur Cocaine Scrn Negative Normal NEG = <300 [facility] Comment on above: Performed By: #### C D:[id number] ####[address] [address] Ur Methadone Scn Negative Normal NEG = <300 [facility] Comment on above: Performed By: #### C D:[id number] ####[address] [address] Ur Opiate Scrn Negative Normal NEG = <300 [facility] Comment on above: Performed By: #### C D:[id number] ####[address] [address] Ur Oxy Screen Negative Normal NEG = <100 [facility] Comment on above: Performed By: #### C D:[id number] ####[address] [address] Ur Oxy Scrn Qnt 12 ng/mL Normal <=99 [facility] Comment on above: Performed By: #### C D:[id number] ####[address] [place] [address] Ur PCP Scrn Negative Normal NEG = <25 [facility] Comment on above: Performed By: #### C D:[id number] ####[address] [place] [address] UA pH 6.0 Normal 4.5 - 7.8 [facility] Comment on above: Performed By: #### C D:[id number] ####[address] [place] [address] UA Spec Grav 1.009 Normal 1.003-1.035 [facility] Comment on above: Performed By: #### C D:[id number] ####[address] [address] XR Chest 1 Viewon 09-13-2024 XR Chest 1 View Normal [facility] BASIC METABOLIC PANLon 09-12 Anion gap [Moles/Vol] 11 mmol/L Normal 5-15 [facility] Comment on above: Performed By: #### C BCA, BMP, 3298-7, 4024-6, 5643-2 #### [facility] ([id number]) [address] [place] [address] #### 476[address]-4 #### [facility] ([id number]) [address] [place] [address], [address] [place] [address] Calcium [Mass/Vol] 9.6 mg/dL Normal 8.5-10.5 [facility] Comment on above: Performed By: #### C BCA, BMP, 3298-7, 4024-6, 5643-2 #### [facility] ([id number]) [address] [place] [address] #### [id number] #### [facility] ([id number]) [address], [address] [place] [address] Chloride [Moles/Vol] 101 mmol/L Normal 98-109 [facility] Comment on above: Performed By: #### C SUSAN BMP, 3298-7, 4024-6, 5643-2 #### [facility] ([id number]) [address] [place] [address] #### 47924-7 #### [facility] ([id number]) [address] [place] [address], [address] [place] [address] CO2 [Moles/Vol] 24 mmol/L Normal 22-32 [facility] Comment on above: Performed By: #### C SUSAN BMP, 3297-7, 4024-6, 5643-2 #### [facility] ([id number]) [address] [place] [address] #### 80346-0 #### [facility] ([id number]) [address] [place] [address], [address] [place] [address] Creatinine [Mass/Vol] 0.77 mg/dL Normal 0.60-1.30 [facility] Comment on above: Result Comment: METH OD TRACEABLE TO IDMS STANDARD Performed By: #### C SUSAN BMP, 3297-7, 4-6, 5643-2 #### [facility] ([id number]) [address] [place] [address] #### 78172-7 #### [facility] ([id number]) [address] [place] [address], [address] [place] [address] eGFR (CKD-EPI) NON-RACE DEPENDENT >90 Normal >59 [facility] Comment on above: Result Comment: Reported eGFR is based on the CKD-EPI 2020 equation that does not use a race coefficient. Performed By: #### C BCA, BMP, 3298-7, 4024-6, 5643-2 #### [facility] ([id number]) [address] [place] [address] #### 55771-8 #### [facility] ([id number]) [address], [address] [place] [address] Glucose [Mass/Vol] 90 mg/dL Normal 65-99 [facility] Comment on above: Performed By: #### C BCA, BMP, 3298-7, 4024-6, 5643-2 #### [facility] ([id number]) [address] [place] [address] #### 74469-7 #### [facility] ([id number]) [address] [facility] [address] [address], [address] [place] [address] Potassium [Moles/Vol] 4.0 mmol/L Normal 3.5-5.0 [facility] Comment on above: Performed By: #### C SUSAN, BMP, 3298-7, 4024-6, 5643-2 #### [facility] ([id number]) [address] [place] [address] #### 86735-3 #### [facility] ([id number]) [address] [facility] [facility] [address], [address] [place] [address] Sodium [Moles/Vol] 136 mmol/L Normal 134-146 [facility] Comment on above: Performed By: #### C SUSAN, BMP, 3298-7, 4024-6, 5643-2 #### [facility] ([id number]) [address] [place] [address] #### 65514-0 #### [facility] ([id number]) [address] [place] [address], [address] [place] [address] Urea nitrogen [Mass/Vol] 13 mg/dL Normal 5-23 [facility] Comment on above: Performed By: #### C BCA, BMP, 3298-7, 4024-6, 5643-2 #### [facility] ([id number]) [address] [place] [address] #### 33688-6 #### [facility] ([id number]) [address], [address] [place] [address] CBC AND AUTO DIFFon 11-18-20 24 ABSOLUTE BASOPHIL 0.1 X10E9/L Normal 0.0-0.2 [facility] Comment on above: Performed By: #### Domenic DAVIS BMP, 3298-7, 4024-6, 5643-2 #### [facility] ([id number]) [address] [place] [address] #### 22046-4 #### [facility] ([id number]) [address], [address] [place] [address] ABSOLUTE NEUTROPHIL 2.9 X10E9/L Normal 1.5-6.6 [facility] Comment on above: Performed By: #### C ANA DAVIS, 3298-7, 4024-6, 5643-2 #### [facility] ([id number]) [address] [place] [address] #### 68413-0 #### [facility] ([id number]) [address], [address] [place] [address] Basophils/100 WBC (Bld) 1.3 % Normal [facility] Comment on above: Performed By: #### ANA Sheth BCA, 3298-7, 4024-6, 5643-2 #### [facility] ([id number]) [address] [place] [address] #### 65680-7 #### [facility] ([id number]) [address], [address] [place] [address] Eosinophils (Bld) [#/Vol] 0.5 10*3/uL High 0.0-0.4 [facility] Comment on above: Performed By: #### Domenic DAVIS, BMP, 3298-7, 4024-6, 5643-2 #### [facility] ([id number]) [address] [place] [address] #### 37079-6 #### [facility] ([id number]) [address], [address] [place] [address] Eosinophils/100 WBC (Bld) 7.8 % Normal [facility] Comment on above: Performed By: #### C ANA DAVIS, 3298-7, 4024-6, 5643-2 #### [facility] ([id number]) [address] [place] [address] #### 89463-0 #### [facility] ([id number]) [address], [address] [place] [address] Erythrocyte distribution width (RBC) [Ratio] 13.2 % Normal 11.5-15.0 [facility] Comment on above: Performed By: #### C ANA DAVIS, 3298-7, 4024-6, 5643-2 #### [facility] ([id number]) [address] [place] [address] #### 09455-8 #### [facility] ([id number]) [address], [address] [place] [address] Hematocrit (Bld) [Volume fraction] 49.2 % High 39-49 [facility] Comment on above: Performed By: #### C ANA DAVIS, 3298-7, 4024-6, 5643-2 #### [facility] ([id number]) [address] [place] [address] #### 55003-5 #### [facility] ([id number]) [address], [address] [place] [address] Hemoglobin (Bld) [Mass/Vol] 17.3 g/dL High 13.0-17.0 [facility] [facility] Comment on above: Performed By: #### C ANA DAVIS, 3298-7, 4024-6, 5643-2 #### [facility] ([id number]) [address] [place] [address] #### 96146-3 #### [facility] ([id number]) [address] [facility], [address] [place] [address] Lymphocytes (Bld) [#/Vol] 2.1 10*3/uL Normal 1.0-3.5 [facility] Comment on above: Performed By: #### C BCA, BMP, 3298-7, 4024-6, 5643-2 #### [facility] ([id number]) [address] [place] [address] #### 01195-8 #### [facility] ([id number]) [address] [place] [address], [address] [place] [address] Lymphocytes/100 WBC (Bld) 32.1 % Normal [facility] Comment on above: Performed By: #### C BCA, BMP, 3298-7, 4024-6, 5643-2 #### [facility] ([id number]) [address] [place] [address] #### 24693-4 #### [facility] ([id number]) [address] [place] [address], [address] [place] [address] MCH (RBC) [Entitic mass] 31.1 pg Normal 27-34 [facility] Comment on above: Performed By: #### C BCA, BMP, 3298-7, 4024-6, 5643-2 #### [facility] ([id number]) [address] [place] [address] #### 40322-4 #### [facility] ([id number]) [address] [facility], [address] [place] [address] MCHC (RBC) [Mass/Vol] 35.1 g/dL Normal 32-36 [facility] Comment on above: Performed By: #### C BCA, BMP, 3298-7, 4024-6, 5643-2 #### [facility] ([id number]) [address] [place] [address] #### 03270-3 #### [facility] ([id number]) [address] [place] [address], [facility] [address] [place] [address] MCV (RBC) [Entitic vol] 89 fL Normal 80-100 [facility] Comment on above: Performed By: #### C BCA, BMP, 3298-7, 4024-6, 5643-2 #### [facility] ([id number]) [address] [place] [address] #### 72899-4 #### [facility] ([id number]) [address] [place] [address], [address] [place] [address] Monocytes (Bld) [#/Vol] 0.9 10*3/uL Normal 0-0.9 [facility] Comment on above: Performed By: #### C BCA, BMP, 329-7, 4024-6, 5643-2 #### [facility] ([id number]) [address] [place] [address] #### 41670-2 #### [facility] ([id number]) [address] [place] [address] Monocytes/100 WBC (Bld) 14.3 % Normal [facility] Comment on above: Performed By: #### C BCA, BMP, 3298-7, 4024-6, 5643-2 #### [facility] ([id number]) [address] [place] [address] #### 83040-7 #### [facility] ([id number]) [address] [place] [address], [facility] [address] [place] [address] Neutrophils/100 WBC (Bld) 44.5 % Normal [facility] Comment on above: Performed By: #### C BCA, BMP, 3298-7, 4024-6, 5643-2 #### [facility] ([id number]) [address] [place] [address] #### 71166-6 #### [facility] ([id number]) [address] [place] [address], [address] [place] [address] Platelet mean volume (Bld) [Entitic vol] 8.1 fL Normal 7-12 [facility] Comment on above: Performed By: #### C ANA DAVIS, 3298-7, 4024-6, 5643-2 #### [facility] ([id number]) [address] [place] [address] #### 58159-4 #### [facility] ([id number]) [address] [place] [address], [facility] [address] [place] [address] Platelets (Bld) [#/Vol] 224 10*3/uL Normal 150-450 [facility] Comment on above: Performed By: #### C ANA DAVIS, 3298-7, 4024-6, 5643-2 #### [facility] ([id number]) [address] [place] [address] #### 78218-4 #### [facility] ([id number]) [address] [place] [address], [facility] [address] [place] [address] RBC COUNT 5.55 X10E12/L Normal 4.10-5.70 [facility] Comment on above: Performed By: #### C SUSAN, ANA, 3298-7, 4024-6, 5643-2 #### [facility] ([id number]) [address] [place] [address] #### 53009-3 #### [facility] ([id number]) [address] [place] [address], [address] [place] [address] WBC (Bld) [#/Vol] 6.5 10*3/uL Normal 4.0-11.0 [facility] Comment on above: Performed By: #### C SUSAN, BMP, 3298-7, 4024-6, 5643-2 #### [facility] ([id number]) [address] [place] [address] #### 16291-6 #### [facility] ([id number]) [address] [place] [address] MAGNESIUMon 09-12-2024 Magnesium [Mass/Vol] 1.9 mg/dL Normal 1.8-2.6 [facility] Comment on above: Performed By: #### C SUSAN BMP, 3298-7, 4024-6, 5643-2 #### [facility] ([id number]) [address] [place] [address] #### 66765-3 #### [facility] ([id number]) [address] [place] [address] CBC AND AUTO DIFFon 09-11-20 ABSOLUTE BASOPHIL 0.1 X10E9/L Normal 0.0-0.2 [facility] Comment on above: Performed By: #### C SUSAN BMP, 3298-7, 4024-6, 5643-2 #### [facility] ([id number]) [address] [place] [address] #### 04491-2 #### [facility] ([id number]) [address] [place] [address] ABSOLUTE NEUTROPHIL 3.4 X10E9/L Normal 1.5-6.6 [facility] Comment on above: Performed By: #### C SUSAN BMP, 3298-7, 4024-6, 5643-2 #### [facility] ([id number]) [address] [place] [address] #### 54082-3 #### [facility] ([id number]) [address] [place] [address] Basophils/100 WBC (Bld) 1.3 % Normal [facility] Comment on above: Performed By: #### C BCA, BMP, 3298-7, 4024-6, 5643-2 #### [facility] ([id number]) [address] [place] [address] #### 36894-2 #### [facility] ([id number]) [address] [place] [address] Eosinophils (Bld) [#/Vol] 0.7 10*3/uL High 0.0-0.4 [facility] Comment on above: Performed By: #### C SUSAN, BMP, 3298-7, 4024-6, 5643-2 #### [facility] ([id number]) [address] [place] [address] #### 71927-2 #### [facility] ([id number]) [address] [place] [address] Eosinophils/100 WBC (Bld) 9.5 % Normal [facility] Comment on above: Performed By: #### C SUSAN BMP, 3298-7, 4024-6, 5643-2 #### [facility] ([id number]) [address] [place] [address]71 #### 22298-3 #### [facility] ([id number]) [address] [place] [address] Erythrocyte distribution width (RBC) [Ratio] 13.5 % Normal 11.5-15.0 [facility] Comment on above: Performed By: #### C BCA, BMP, 3297-7, 4023-6, 5643-2 #### [facility] ([id number]) [address] [place] [address]67 #### 60101-4 #### [facility] ([id number]) [address] [place] [address] Hematocrit (Bld) [Volume fraction] 47.2 % Normal 39-49 [facility] Comment on above: Performed By: #### C BCA, BMP, 3297-7, 4023-6, 5643-2 #### [facility] ([id number]) [address] [place] [address] #### 26514-8 #### [facility] ([id number]) [address], [address] [place] [address] Hemoglobin (Bld) [Mass/Vol] 16.3 g/dL Normal 13.0-17.0 [facility] Comment on above: Performed By: #### C BCA, BMP, 3298-7, 4024-6, 5643-2 #### [facility] ([id number]) [address] [place] [address]883 #### 08294-5 #### [facility] ([id number]) [address], [address] [place] [address] Lymphocytes (Bld) [#/Vol] 2.0 10*3/uL Normal 1.0-3.5 [facility] Comment on above: Performed By: #### C BCA, BMP, 3298-7, 4024-6, 5643-2 #### [facility] ([id number]) [address] [place] [address] #### 25639-1 #### [facility] ([id number]) [address], [address] [place] [address] Lymphocytes/100 WBC (Bld) 28.0 % Normal [facility] Comment on above: Performed By: #### C BCA, BMP, 8-7, 4024-6, 5643-2 #### [facility] ([id number]) [address] [place] [address] #### 91084-2 #### [facility] ([id number]) [address], [address] [place] [address] MCH (RBC) [Entitic mass] 30.6 pg Normal 27-34 [facility] Comment on above: Performed By: #### C BCA, BMP, 3298-7, 4024-6, 5643-2 #### [facility] ([id number]) [address] [place] [address] #### 80639-9 #### [facility] ([id number]) [address] [facility], [address] [place] [address] MCHC (RBC) [Mass/Vol] 34.5 g/dL Normal 32-36 [facility] Comment on above: Performed By: #### C BCA, BMP, 3297-7, 4024-6, 5643-2 #### [facility] ([id number]) [address] [place] [address] #### 12828-9 #### [facility] ([id number]) [address] [facility], [address] [place] [address] MCV (RBC) [Entitic vol] 89 fL Normal 80-100 [facility] Comment on above: Performed By: #### C BCA, BMP, 3297-7, 4024-6, 5643-2 #### [facility] ([id number]) [address] [place] [address] #### 80760-0 #### [facility] ([id number]) [address] [facility], [address] [place] [address] Monocytes (Bld) [#/Vol] 0.9 10*3/uL Normal 0-0.9 [facility] Comment on above: Performed By: #### C BCA, BMP, 3297-7, 4024-6, 5643-2 #### [facility] ([id number]) [address] [place] [address] #### 21903-3 #### [facility] ([id number]) [address] [facility], [address] [place] [address] Monocytes/100 WBC (Bld) 12.6 % Normal [facility] Comment on above: Performed By: #### C BCA, BMP, 3297-7, 4024-6, 5643-2 #### [facility] ([id number]) [address] [place] [address] #### 58219-3 #### [facility] ([id number]) [address] [facility], [address] [place] [address] Neutrophils/100 WBC (Bld) 48.6 % Normal [facility] Comment on above: Performed By: #### C ANA DAVIS, 3298-7, 4024-6, 5643-2 #### [facility] ([id number]) [address] [place] [address] #### 92337-1 #### [facility] ([id number]) [address] [facility], [address] [place] [address] Platelet mean volume (Bld) [Entitic vol] 7.8 fL Normal 7-12 [facility] Comment on above: Performed By: #### C ANA DAVIS, 3298-7, 4024-6, 5643-2 #### [facility] ([id number]) [address] [place] [address] #### 88943-6 #### [facility] ([id number]) [address] [facility], [address] [place] [address] Platelets (Bld) [#/Vol] 205 10*3/uL Normal 150-450 [facility] Comment on above: Performed By: #### C ANA DAVIS, 3298-7, 4024-6, 5643-2 #### [facility] ([id number]) [address] [place] [address] #### 38633-6 #### [facility] ([id number]) [address] [facility], [address] [place] [address] RBC COUNT 5.33 X10E12/L Normal 4.10-5.70 [facility] Comment on above: Performed By: #### C BCA, BMP, 3298-7, 4024-6, 5643-2 #### [facility] ([id number]) [address] [place] [address] #### 30616-6 #### [facility] ([id number]) [address], [address] [place] [address] WBC (Bld) [#/Vol] 7.0 10*3/uL Normal 4.0-11.0 [facility] Comment on above: Performed By: #### C BCA, BMP, 3298-7, 4024-6, 5643-2 #### [facility] ([id number]) [address] [place] [address] #### 33443-0 #### [facility] ([id number]) [address], [address] [place] [address] COMPREHENSIVE METABOLIC PANE Per 09-11-2024 Albumin [Mass/Vol] 4.0 g/dL Normal 3.2-5.3 [facility] Comment on above: Performed By: #### C BCA, BMP, 3298-7, 4024-6, 5643-2 #### [facility] ([id number]) [address] [place] [address] #### 18798-9 #### [facility] ([id number]) [address], [address] [place] [address] ALP [Catalytic activity/Vol] 55 U/L Normal 39-130 [facility] Comment on above: Performed By: #### C BCA, BMP, 3298-7, 4024-6, 5643-2 #### [facility] ([id number]) [address] [place] [address] #### 32775-3 #### [facility] ([id number]) [address], [address] [place] [address] ALT [Catalytic activity/Vol] 29 U/L Normal 0-40 [facility] Comment on above: Performed By: #### C BCA, BMP, 3298-7, 4024-6, 5643-2 #### [facility] ([id number]) [address] [place] [address] #### 02956-1 #### [facility] ([id number]) [address], [address] [place] [address] Anion gap [Moles/Vol] 7 mmol/L Normal 5-15 [facility] Comment on above: Performed By: #### C BCA, BMP, 3298-7, 4024-6, 5643-2 #### [facility] ([id number]) [address] [place] [address] #### 09404-8 #### [facility] ([id number]) [address], [address] [place] [address] AST [Catalytic activity/Vol] 36 U/L Normal 0-41 [facility] Comment on above: Performed By: #### C BCA, BMP, 3298-7, 4024-6, 5643-2 #### [facility] ([id number]) [address] [place] [address] #### 19854-9 #### [facility] ([id number]) [address], [address] [place] [address] Bilirubin [Mass/Vol] 1.0 mg/dL Normal 0.3-1.2 [facility] Comment on above: Performed By: #### C BCA, BMP, 3298-7, 4024-6, 5643-2 #### [facility] ([id number]) [address] [place] [address]93 #### 91885-1 #### [facility] ([id number]) [address], [address] [place] [address] Calcium [Mass/Vol] 9.0 mg/dL Normal 8.5-10.5 [facility] Comment on above: Performed By: #### C BCA, BMP, 3298-7, 4024-6, 5643-2 #### [facility] ([id number]) [address] [place] [address] #### 95364-1 #### [facility] ([id number]) [address] [facility], [address] [place] [address] Chloride [Moles/Vol] 104 mmol/L Normal 98-109 [facility] Comment on above: Performed By: #### C BCA, BMP, 3298-7, 4024-6, 5643-2 #### [facility] ([id number]) [address] [place] [address]444 #### 70593-1 #### [facility] ([id number]) [address] [facility], [address] [place] [address] CO2 [Moles/Vol] 26 mmol/L Normal 22-32 [facility] Comment on above: Performed By: #### C BCA, BMP, 3298-7, 4024-6, 5643-2 #### [facility] ([id number]) [address] [place] [address]147 #### 55909-6 #### [facility] ([id number]) [address] [facility], [address] [place] [address] Creatinine [Mass/Vol] 0.73 mg/dL Normal 0.60-1.30 [facility] Comment on above: Result Comment: METH OD TRACEABLE TO IDMS STANDARD Performed By: #### C BCA, BMP, 3298-7, 4024-6, 5643-2 #### [facility] ([id number]) [address] [place] [address]160 #### 34358-0 #### [facility] ([id number]) [address] [facility], [address] [place] [address] eGFR (CKD-EPI) NON-RACE DEPENDENT >90 Normal >59 [facility] Comment on above: Result Comment: Reported eGFR is based on the CKD-EPI 2020 equation that does not use a race coefficient. Performed By: #### C ANA DAVIS, 3298-7, 4024-6, 5643-2 #### [facility] ([id number]) [address] [place] [address]89 #### 63307-6 #### [facility] ([id number]) [address], [address] [place] [address] Glucose [Mass/Vol] 93 mg/dL Normal 65-99 [facility] Comment on above: Performed By: #### C ANA DAVIS, 3298-7, 4024-6, 5643-2 #### [facility] ([id number]) [address] [place] [address] 14349 #### 65194-9 #### [facility] ([id number]) [address] [facility], [address] [place] [address] Potassium [Moles/Vol] 3.9 mmol/L Normal 3.5-5.0 [facility] Comment on above: Performed By: #### C ANA DAVIS, 3298-7, 4024-6, 5643-2 #### [facility] ([id number]) [address] [place] [address] 89517 #### 58576-4 #### [facility] ([id number]) [address] [facility], [address] [place] [address] Protein [Mass/Vol] 6.7 g/dL Normal 6.0-8.0 [facility] Comment on above: Performed By: #### C ANA DAVIS, 3298-7, 4024-6, 5643-2 #### [facility] ([id number]) [address] [place] [address]38 #### 41067-6 #### [facility] ([id number]) [address] [facility], [address] [place] [address] Sodium [Moles/Vol] 137 mmol/L Normal 134-146 [facility] Comment on above: Performed By: #### C BCA, BMP, 3298-7, 4024-6, 5643-2 #### [facility] ([id number]) [address] [place] [address]335 #### 03401-2 #### [facility] ([id number]) [address] [place] [address], [address] [place] [address] Urea nitrogen [Mass/Vol] 11 mg/dL Normal 5-23 [facility] Comment on above: Performed By: #### C BCA, BMP, 329-7, 4-6, 5643-2 #### [facility] ([id number]) [address] [place] [address]2341 #### 18509-3 #### [facility] ([id number]) [address] [place] [address], [address] [place] [address] MAGNESIUMon 09-11-2024 Magnesium [Mass/Vol] 2.1 mg/dL Normal 1.8-2.6 [facility] Comment on above: Performed By: #### C BCA, BMP, 3297-7, 4024-6, 5643-2 #### [facility] ([id number]) [address] [place] [address] 85780 #### 67538-1 #### [facility] ([id number]) [address] [facility], [address] [place] [address] BASIC METABOLIC PANLon 09-10 Anion gap [Moles/Vol] 10 mmol/L Normal 5-15 [facility] Comment on above: Performed By: #### C BCA, BMP, 329-7, 4024-6, 5643-2 #### [facility] ([id number]) [address] [place] [address]7974 #### 90391-6 #### [facility] ([id number]) [address] [place] [address], [address] [place] [address] Calcium [Mass/Vol] 8.8 mg/dL Normal 8.5-10.5 [facility] Comment on above: Performed By: #### C ANA DAVIS, 3298-7, 4024-6, 5643-2 #### [facility] ([id number]) [address] [place] [address] #### 95867-6 #### [facility] ([id number]) [address] [place] [address], [address] [place] [address] Chloride [Moles/Vol] 106 mmol/L Normal 98-109 [facility] Comment on above: Performed By: #### C ANA DAVIS, 3298-7, 4024-6, 5643-2 #### [facility] ([id number]) [address] [place] [address] #### 38761-8 #### [facility] ([id number]) [address] [place] [address], [facility] [address] [place] [address] CO2 [Moles/Vol] 22 mmol/L Normal 22-32 [facility] Comment on above: Performed By: #### C ANA DAVIS, 3298-7, 4024-6, 5643-2 #### [facility] ([id number]) [address] [place] [address] #### 04430-5 #### [facility] ([id number]) [address] [place] [address], [facility] [address] [place] [address] Creatinine [Mass/Vol] 0.73 mg/dL Normal 0.60-1.30 [facility] Comment on above: Result Comment: METH OD TRACEABLE TO IDMS STANDARD Performed By: #### C ANA DAVIS, 3298-7, 4024-6, 5643-2 #### [facility] ([id number]) [address] [place] [address] #### 09443-4 #### [facility] ([id number]) [address], [address] [place] [address] eGFR (CKD-EPI) NON-RACE DEPENDENT >90 Normal >59 [facility] Comment on above: Result Comment: Reported eGFR is based on the CKD-EPI 2020 equation that does not use a race coefficient. Performed By: #### C BCA, BMP, 3298-7, 4024-6, 5643-2 #### [facility] ([id number]) [address] [place] [address] #### 49411-8 #### [facility] ([id number]) [address] [facility], [address] [place] [address] Glucose [Mass/Vol] 91 mg/dL Normal 65-99 [facility] Comment on above: Performed By: #### C BCA, BMP, 3298-7, 4024-6, 5643-2 #### [facility] ([id number]) [address] [place] [address] #### 66102-7 #### [facility] ([id number]) [address], [address] [place] [address] Potassium [Moles/Vol] 3.9 mmol/L Normal 3.5-5.0 [facility] Comment on above: Performed By: #### C BCA, BMP, 3298-7, 4024-6, 5643-2 #### [facility] ([id number]) [address] [place] [address] #### 60238-3 #### [facility] ([id number]) [address], [address] [place] [address] Sodium [Moles/Vol] 138 mmol/L Normal 134-146 [facility] Comment on above: Performed By: #### C BCA, BMP, 3298-7, 4024-6, 5643-2 #### [facility] ([id number]) [address] [place] [address] #### 18459-9 #### [facility] ([id number]) [address] [facility], [address] [place] [address] Urea nitrogen [Mass/Vol] 11 mg/dL Normal 5-23 [facility] Comment on above: Performed By: #### C BCA, BMP, 3298-7, 4024-6, 5643-2 #### [facility] ([id number]) [address] [place] [address] #### 22985-9 #### [facility] ([id number]) [address] [facility], [address] [place] [address] CBC AND AUTO DIFFon 09-10-20 24 ABSOLUTE BASOPHIL 0.1 X10E9/L Normal 0.0-0.2 [facility] Comment on above: Performed By: #### C BCA, BMP, 3298-7, 4024-6, 5643-2 #### [facility] ([id number]) [address] [place] [address] #### 57137-7 #### [facility] ([id number]) [address] [facility], [address] [address] ABSOLUTE NEUTROPHIL 5.2 X10E9/L Normal 1.5-6.6 [facility] Comment on above: Performed By: #### C BCA, BMP, 3298-7, 4024-6, 5643-2 #### [facility] ([id number]) [address] [place] [address] #### 11795-6 #### [facility] ([id number]) [address] [facility], [address] [address] [address] Basophils/100 WBC (Bld) 1.1 % Normal [facility] Comment on above: Performed By: #### C BCA, BMP, 3298-7, 4024-6, 5643-2 #### [facility] ([id number]) [address] [place] [address] #### 95472-5 #### [facility] ([id number]) [address] [place] [address], [address] [place] [address] Eosinophils (Bld) [#/Vol] 0.5 10*3/uL High 0.0-0.4 [facility] Comment on above: Performed By: #### C BCA, BMP, 3298-7, 4024-6, 5643-2 #### [facility] ([id number]) [address] [place] [address] #### 88039-8 #### [facility] ([id number]) [address] [place] [address], [address] [place] [address] Eosinophils/100 WBC (Bld) 6.7 % Normal [facility] Comment on above: Performed By: #### C BCA, BMP, 3298-7, 4024-6, 5643-2 #### [facility] ([id number]) [address] [place] [address]24 #### 10226-8 #### [facility] ([id number]) [address] [place] [address], [address] [place] [address] Erythrocyte distribution width (RBC) [Ratio] 13.3 % Normal 11.5-15.0 [facility] Comment on above: Performed By: #### Domenic BCA, BMP, 329-7, 4024-6, 5643-2 #### [facility] ([id number]) [address] [place] [address]8435 #### 03649-7 #### [facility] ([id number]) [address] [place] [address], [address] [place] [address] Hematocrit (Bld) [Volume fraction] 47.5 % Normal 39-49 [facility] Comment on above: Performed By: #### C BCA, BMP, 3298-7, 4024-6, 5643-2 #### [facility] ([id number]) [address] [place] [address]23 #### 09125-3 #### [facility] ([id number]) [address] [facility] [address] [place] [address] Hemoglobin (Bld) [Mass/Vol] 16.6 g/dL Normal 13.0-17.0 [facility] Comment on above: Performed By: #### C BCA, BMP, 3298-7, 4024-6, 5643-2 #### [facility] ([id number]) [address] [place] [address]18 #### 88398-4 #### [facility] ([id number]) [address] [place] [address] Lymphocytes (Bld) [#/Vol] 1.3 10*3/uL Normal 1.0-3.5 [facility] Comment on above: Performed By: #### C BCA, BMP, 329-7, 4024-6, 5643-2 #### [facility] ([id number]) [address] [place] [address] #### 57618-4 #### [facility] ([id number]) [address] [place] [address] Lymphocytes/100 WBC (Bld) 16.6 % Normal [facility] Comment on above: Performed By: #### Domenic BCA, BMP, 329-7, 4024-6, 5643-2 #### [facility] ([id number]) [address] [place] [address] 89407 #### 90686-0 #### [facility] ([id number]) [address] [place] [address] [address] [place] [address] MCH (RBC) [Entitic mass] 30.7 pg Normal 27-34 [facility] Comment on above: Performed By: #### C BCA, BMP, 3298-7, 4024-6, 5643-2 #### [facility] ([id number]) [address] [place] [address] #### 20613-6 #### [facility] ([id number]) [address] [place] [address] [address] [place] [address] MCHC (RBC) [Mass/Vol] 35.0 g/dL Normal 32-36 [facility] Comment on above: Performed By: #### C BCA, BMP, 3298-7, 4024-6, 5643-2 #### [facility] ([id number]) [address] [place] [address]37 #### 76601-7 #### [facility] ([id number]) [address] [place] [address] [address] [place] [address] MCV (RBC) [Entitic vol] 88 fL Normal 80-100 [facility] Comment on above: Performed By: #### C SUSAN, BMP, 329-7, 402-6, 5643-2 #### [facility] ([id number]) [address] [place] [address] 73604 #### 22683-0 #### [facility] ([id number]) [address] [place] [address] [address] [place] [address] Monocytes (Bld) [#/Vol] 0.7 10*3/uL Normal 0-0.9 [facility] Comment on above: Performed By: #### Domenic BCA, BMP, 3297-7, 4024-6, 5643-2 #### [facility] ([id number]) [address] [place] [address] 21693 #### 05643-0 #### [facility] ([id number]) [address] [place] [address] Monocytes/100 WBC (Bld) 9.2 % Normal [facility] Comment on above: Performed By: #### Domenic BCA, BMP, 3298-7, 4024-6, 5643-2 #### [facility] ([id number]) [address] [place] [address] 39456 #### 74809-9 #### [facility] ([id number]) [address] [place] [address] Neutrophils/100 WBC (Bld) 66.4 % Normal [facility] Comment on above: Performed By: #### ANA Sheth BCA, 3298-7, 4024-6, 5643-2 #### [facility] ([id number]) [address] [place] [address] 23571 #### 00996-0 #### [facility] ([id number]) [address] [place] [address], [address] [address] Platelet mean volume (Bld) [Entitic vol] 7.7 fL Normal 7-12 [facility] Comment on above: Performed By: #### ANA Sheth BCA, 3298-7, 4024-6, 5643-2 #### [facility] ([id number]) [address] [place] [address] 89261 #### 23844-9 #### [facility] ([id number]) [address] [place] [address] Platelets (Bld) [#/Vol] 208 10*3/uL Normal 150-450 [facility] Comment on above: Performed By: #### ANA Sheth BCA, 3298-7, 4024-6, 5643-2 #### [facility] ([id number]) [address] [place] [address] 87892 #### 05699-3 #### [facility] ([id number]) [address] [place] [address] RBC COUNT 5.41 X10E12/L Normal 4.10-5.70 [facility] Comment on above: Performed By: #### ANA Sheth BCA, 3298-7, 4024-6, 5643-2 #### [facility] ([id number]) [address] [place] [address] 61898 #### 20411-7 #### [facility] ([id number]) [address] [facility], [address] [place] [address] WBC (Bld) [#/Vol] 7.8 10*3/uL Normal 4.0-11.0 [facility] Comment on above: Performed By: #### C BCA, BMP, 3298-7, 4024-6, 5643-2 #### [facility] ([id number]) [address] [place] [address] 25476 #### 91101-7 #### [facility] ([id number]) [address] [place] [address], [address] [place] [address] BASIC METABOLIC PANLon 09-09 Anion gap [Moles/Vol] 8 mmol/L Normal 5-15 [facility] Comment on above: Performed By: #### C BCA, BMP, 3298-7, 4024-6, 5643-2 #### [facility] ([id number]) [address] [place] [address] 15994 #### 01781-6 #### [facility] ([id number]) [address] [place] [address], [address] [place] [address] Calcium [Mass/Vol] 8.7 mg/dL Normal 8.5-10.5 [facility] Comment on above: Performed By: #### C BCA, BMP, 3298-7, 4024-6, 5643-2 #### [facility] ([id number]) [address] [place] [address] 90506 #### 76285-1 #### [facility] ([id number]) [facility], [address] [place] [address] Chloride [Moles/Vol] 109 mmol/L Normal 98-109 [facility] Comment on above: Performed By: #### C BCA, BMP, 3298-7, 4024-6, 5643-2 #### [facility] ([id number]) [address] [place] [address] #### 80860-7 #### [facility] ([id number]) [address] [facility], [address] [place] [address] CO2 [Moles/Vol] 23 mmol/L Normal 22-32 [facility] Comment on above: Performed By: #### C BCA, BMP, 3298-7, 4024-6, 5643-2 #### [facility] ([id number]) [address] [place] [address] 46240 #### 60129-5 #### [facility] ([id number]) [address] [facility], [address] [place] [address] Creatinine [Mass/Vol] 0.77 mg/dL Normal 0.60-1.30 [facility] Comment on above: Result Comment: METH OD TRACEABLE TO IDMS STANDARD Performed By: #### C BCA, BMP, 3298-7, 4024-6, 5643-2 #### [facility] ([id number]) [address] [place] [address] 59096 #### 12901-7 #### [facility] ([id number]) [address] [facility], [address] [place] [address] eGFR (CKD-EPI) NON-RACE DEPENDENT >90 Normal >59 [facility] Comment on above: Result Comment: Reported eGFR is based on the CKD-EPI 2021 equation that does not use a race coefficient. Performed By: #### C BCA, BMP, 3298-7, 4024-6, 5643-2 #### [facility] ([id number]) [address] [place] [address] 85157 #### 70653-9 #### [facility] ([id number]) [address] [facility], [address] [place] [address] Glucose [Mass/Vol] 116 mg/dL High 65-99 [facility] Comment on above: Performed By: #### C BCA, BMP, 3298-7, 4024-6, 5643-2 #### [facility] ([id number]) [address] [place] [address] 63122 #### 15087-5 #### [facility] ([id number]) [address] [place], [address] [place] [address] Potassium [Moles/Vol] 4.0 mmol/L Normal 3.5-5.0 [facility] Comment on above: Performed By: #### C BCA, BMP, 3298-7, 4024-6, 5643-2 #### [facility] ([id number]) [address] [place] [address] 27415 #### 04792-9 #### [facility] ([id number]) [address] [place], [address] [place] [address] Sodium [Moles/Vol] 140 mmol/L Normal 134-146 [facility] Comment on above: Performed By: #### C BCA, BMP, 3298-7, 4024-6, 5643-2 #### [facility] ([id number]) [address] [place] [address] 74211 #### 98435-0 #### [facility] ([id number]) [address], [address] [place] [address] Urea nitrogen [Mass/Vol] 13 mg/dL Normal 5-23 [facility] Comment on above: Performed By: #### C BCA, BMP, 3298-7, 4024-6, 5643-2 #### [facility] ([id number]) [address] [place] [address] 94354 #### 59751-4 #### [facility] ([id number]) [address], [address] [place] [address] [address] SCR NURSINGon S. pyogenes Ag EIA Ql (Throat) Negative Normal NEG [facility] Comment on above: Performed By: #### C SUSAN, [facility], 3298-7, 4024-6, 5643-2 #### [facility] ([id number]) [address] [place] [address] #### 04879-4 #### [facility] ([id number]) [address] [place] [address], [address] [place] [address] RESP PATHOGENS/TBUQ-NjX-1bj 09-09-2024 Respiratory pathogens DNA and RNA panel BRITTANY+non-probe (Nph) SPECIMEN SOURCE NASO PHARYNX ADENOVIRUS Not detected (qualifier value) CORONAVIRUS 229E Not detected (qualifier value) CORONAVIRUS HKU1 Not detected (qualifier value) CORONAVIRUS NL63 Not detected (qualifier value) CORONAVIRUS OC43 Not detected (qualifier value) HUMAN METAPNEUVIRUS Not detected (qualifier value) RHINO/ENTEROVIRUS Detected (qualifier value) INFLUENZA A Not detected (qualifier value) INFLUENZA B Not detected (qualifier value) PARAINFLUENZA 1 Not detected (qualifier value) PARAINFLUENZA 2 Not detected (qualifier value) PARAINFLUENZA 3 Not detected (qualifier value) PARAINFLUENZA 4 Not detected (qualifier value) RESP SYNCYTIAL VIRUS Not detected (qualifier value) BORD PARAPERTUSSIS Not detected (qualifier value) BORDETELLA PERTUSSIS Not detected (qualifier value) CHLAM.PNEUMONIAE Not detected (qualifier value) MYCO. PNEUMONIAE Not detected (qualifier value) SARS CoV 2 Not detected (qualifier value) NOTE The BioFire Respiratory Panel 2.1 (RP2.1) is a multiplexed nucleic acid test intended for the simultaneous qualitative detection and differentiation of nucleic acid from multiple viral and bacterial respiratory organisms, including nucleic acid from Severe Acute Respiratory Syndrome Coronavirus 2 (SARS-CoV-2), in nasopharyngeal swabs obtained from individuals suspected of COVID-19 by their healthcare provider. Testing is limited to laboratories certified under the Clinical Laboratory Improvement Amendments of 1988 (CLIA), to perform high complexity or moderate complexity tests. SARS-CoV-2 RNA and nucleic acids from the other respiratory viral and bacterial organisms identified by this test are generally detectable in nasopharyngeal swabs during the acute phase of infection. The detection and identification of specific viral and bacterial nucleic acids from individuals exhibiting signs and/or symptoms of respiratory infection is indicative of the presence of the identified microorganism and aids in the diagnosis of respiratory infection if used in conjunction with other clinical and epidemiological information. Positive results are indicative of the presence of the identified organism, but do not rule out co-infection with other pathogens. The agent(s) detected by the BioFire RP2.1 may not be the definite cause of disease and clinical correlation with patient history and other diagnostic information is necessary to determine patient infection status. Negative results in the setting of a respiratory illness may be due to infection with pathogens not detected by this test, or lower respiratory tract infection that may not be detected by a nasopharyngeal specimen. Negative results do not preclude SARS-CoV-2 infection and should not be used as the sole basis for patient management decisions. Negative ELLIOT-CoV-2 results must be combined with clinical observations, patient history and epidemiological information. Negative results for other organisms identified by the test may require additional laboratory testing when evaluating a patient with possible respiratory tract infection. Normal [facility] Comment on above: Performed By: #### C ANA DAVIS, 3298-7, 4024-6, 5643-2 #### [facility] ([id number]) [address] [place] [address] #### 74034-8 #### [facility] ([id number]) [address] [place] [address], [address] [place] [address] XR CHEST 1 VWon 09-09-2024 XR CHEST 1 VW XR CHEST 1 VW Indication: Cough. TECHNIQUE: Frontal view the chest obtained portably and compared to prior exam dated 09/04/2021. FINDINGS: Heart and mediastinum are within normal limits. Focal consolidation, pleural effusion, or pneumothorax is not seen. IMPRESSION: 1. No definite acute pulmonary process. Finalized by Cassi Hathaway MD on 09/09/2024 2:04 PM Normal [facility] ACETAMINOPHENon 09-08-2024 Acetaminophen [Mass/Vol] ug/mL Low 10.0-30.0 [facility] Comment on above: Result Comment: Refe rence ranges are for therapeutic limits. Performed By: #### C ANA DAVIS, 3298-7, 4024-6, 5643-2 #### [facility] ([id number]) [address] [place] [address] #### 40637-3 #### [facility] ([id number]) [address], [address] [place] [address] BASIC METABOLIC PANLon 09-08 Anion gap [Moles/Vol] 10 mmol/L Normal 5-15 [facility] Comment on above: Performed By: #### C BCA, BMP, 3298-7, 4024-6, 5643-2 #### [facility] ([id number]) [address] [place] [address]2769 #### 03505-0 #### [facility] ([id number]) [address] [facility], [address] [place] [address] Calcium [Mass/Vol] 8.8 mg/dL Normal 8.5-10.5 [facility] Comment on above: Performed By: #### C BCA, BMP, 3298-7, 4024-6, 5643-2 #### [facility] ([id number]) [address] [place] [address] 69199 #### 15139-2 #### [facility] ([id number]) [address], [address] [place] [address] Chloride [Moles/Vol] 105 mmol/L Normal 98-109 [facility] Comment on above: Performed By: #### C BCA, BMP, 3298-7, 4024-6, 5643-2 #### [facility] ([id number]) [address] [place] [address] #### 53989-7 #### [facility] ([id number]) [address], [address] [place] [address] CO2 [Moles/Vol] 21 mmol/L Low 22-32 [facility] Comment on above: Performed By: #### C BCA, BMP, 3298-7, 4024-6, 5643-2 #### [facility] ([id number]) [facility] [place] [address] #### 51312-6 #### [facility] ([id number]) [address], [facility] [address] [place] [address] Creatinine [Mass/Vol] 0.80 mg/dL Normal 0.60-1.30 [facility] Comment on above: Result Comment: METH OD TRACEABLE TO IDMS STANDARD Performed By: #### C BCA, BMP, 3298-7, 4024-6, 5643-2 #### [facility] ([id number]) [address] [place] [address]102 #### 65600-4 #### [facility] ([id number]) [address], [address] [address] eGFR (CKD-EPI) NON-RACE DEPENDENT >90 Normal >59 [facility] Comment on above: Result Comment: Reported eGFR is based on the CKD-EPI 2020 equation that does not use a race coefficient. Performed By: #### C BCA, BMP, 3298-7, 4024-6, 5643-2 #### [facility] ([id number]) [address] [place] [address]00 #### 65511-6 #### [facility] ([id number]) [address] [address] Glucose [Mass/Vol] 90 mg/dL Normal 65-99 [facility] Comment on above: Performed By: #### C BCA, BMP, 3298-7, 4024-6, 5643-2 #### [facility] ([id number]) [address] [place] [address]2821 #### 66504-4 #### [facility] ([id number]) [address] [place], [facility] [address] [place] [address] Potassium [Moles/Vol] 4.0 mmol/L Normal 3.5-5.0 [facility] Comment on above: Performed By: #### C BCA, BMP, 3298-7, 4024-6, 5643-2 #### [facility] ([id number]) [address] [place] [address]54 #### 63028-8 #### [facility] ([id number]) [address] [place] [address], [address] [address] Sodium [Moles/Vol] 136 mmol/L Normal 134-146 [facility] Comment on above: Performed By: #### C BCA, BMP, 3298-7, 4024-6, 5643-2 #### [facility] ([id number]) [address] [place] [address] 18183 #### 35977-9 #### [facility] ([id number]) [address] [place] [address], [address] [address] Urea nitrogen [Mass/Vol] 15 mg/dL Normal 5-23 [facility] Comment on above: Performed By: #### C SUSAN, BMP, 3298-7, 4024-6, 5643-2 #### [facility] ([id number]) [address] [place] [address] #### 09947-1 #### [facility] ([id number]) [address] [place] [address], [address] [address] CBC AND AUTO DIFFon 09-08-20 24 ABSOLUTE BASOPHIL 0.1 X10E9/L Normal 0.0-0.2 [facility] Comment on above: Performed By: #### C BCA, BMP, 3298-7, 4024-6, 5643-2 #### [facility] ([id number]) [address] [place] [address] #### 07873-6 #### [facility] ([id number]) [address] [place] [address], [address] [address] ABSOLUTE NEUTROPHIL 3.1 X10E9/L Normal 1.5-6.6 [facility] Comment on above: Performed By: #### C ANA DAVIS, 3297-7, 4023-6, 5643-2 #### [facility] ([id number]) [address] [place] [address] #### 38846-1 #### [facility] ([id number]) [address] [facility], [facility] [address] [place] [address] Basophils/100 WBC (Bld) 1.3 % Normal [facility] Comment on above: Performed By: #### C SUSAN, ANA, 7, 4023-6, 5643-2 #### [facility] ([id number]) [address] [place] [address] #### 16991-6 #### [facility] ([id number]) [address] [facility] [address] [place] [address] Eosinophils (Bld) [#/Vol] 0.4 10*3/uL Normal 0.0-0.4 [facility] Comment on above: Performed By: #### ANA Sheth BCA, 3298-04, 402-6, 5643-2 #### [facility] ([id number]) [address] [place] [address] #### 71885-2 #### [facility] ([id number]) [address] [facility] [address] [place] [address] Eosinophils/100 WBC (Bld) 5.7 % Normal [facility] Comment on above: Performed By: #### ANA Sheth BCA, 329-7, 4024-6, 5643-2 #### [facility] ([id number]) [address] [place] [address] #### 43082-3 #### [facility] ([id number]) [address] [facility], [facility] [address] [place] [address] Erythrocyte distribution width (RBC) [Ratio] 13.3 % Normal 11.5-15.0 [facility] Comment on above: Performed By: #### C ANA DAVIS, 3298-7, 4024-6, 5643-2 #### [facility] ([id number]) [address] [place] [address] #### 54375-5 #### [facility] ([id number]) [address] [place] [address], [address] [place] [address] Hematocrit (Bld) [Volume fraction] 43.8 % Normal 39-49 [facility] Comment on above: Performed By: #### C ANA DAVIS, 3298-7, 4024-6, 5643-2 #### [facility] ([id number]) [address] [place] [address] #### 45422-0 #### [facility] ([id number]) [address] [place] [address], [address] [place] [address] Hemoglobin (Bld) [Mass/Vol] 15.1 g/dL Normal 13.0-17.0 [facility] Comment on above: Performed By: #### C ANA DAVIS, 3298-7, 4024-6, 5643-2 #### [facility] ([id number]) [address] [place] [address] #### 74817-1 #### [facility] ([id number]) [facility], [address] [place] [address] Lymphocytes (Bld) [#/Vol] 3.0 10*3/uL Normal 1.0-3.5 [facility] Comment on above: Performed By: #### C ANA DAVIS, 3298-7, 4024-6, 5643-2 #### [facility] ([id number]) [address] [place] [address] #### 13283-8 #### [facility] ([id number]) [address] [facility], [facility] [address] [place] [address] Lymphocytes/100 WBC (Bld) 42.2 % Normal [facility] Comment on above: Performed By: #### C ANA DAVIS, 3297-7, 4023-6, 5643-2 #### [facility] ([id number]) [address] [place] [address] #### 04359-8 #### [facility] ([id number]) [address] [facility], [facility] [address] [place] [address] MCH (RBC) [Entitic mass] 30.2 pg Normal 27-34 [facility] Comment on above: Performed By: #### C ANA DAVIS, 7, 4023-6, 5643-2 #### [facility] ([id number]) [address] [place] [address] #### 71489-4 #### [facility] ([id number]) [address] [facility] [address] [place] [address] MCHC (RBC) [Mass/Vol] 34.5 g/dL Normal 32-36 [facility] Comment on above: Performed By: #### C ANA DAVIS, 7, 4023-6, 5643-2 #### [facility] ([id number]) [address] [place] [address] 71291 #### 42194-1 #### [facility] ([id number]) [address] [facility] [address] [place] [address] MCV (RBC) [Entitic vol] 88 fL Normal 80-100 [facility] Comment on above: Performed By: #### C ANA DAVIS, 3297-7, 4023-6, 5643-2 #### [facility] ([id number]) [address] [place] [address] 15157 #### 31756-0 #### [facility] ([id number]) [address] [place] [address] [address] [place] [address] Monocytes (Bld) [#/Vol] 0.5 10*3/uL Normal 0-0.9 [facility] Comment on above: Performed By: #### C ANA DAVIS, 3298-7, 4024-6, 5643-2 #### [facility] ([id number]) [address] [place] [address] 43718 #### 07768-1 #### [facility] ([id number]) [address] [facility] [place] [address] Monocytes/100 WBC (Bld) 7.6 % Normal [facility] Comment on above: Performed By: #### C ANA DAVIS, 3298-7, 4024-6, 5643-2 #### [facility] ([id number]) [address] [place] [address] 27067 #### 60259-0 #### [facility] ([id number]) [address] [facility] [place] [address] Neutrophils/100 WBC (Bld) 43.2 % Normal [facility] Comment on above: Performed By: #### ANA Sheth BCA, 3298-7, 4024-6, 5643-2 #### [facility] ([id number]) [address] [place] [address] 55636 #### 26014-7 #### [facility] ([id number]) [address] [facility], [address] [place] [address] Platelet mean volume (Bld) [Entitic vol] 7.5 fL Normal 7-12 [facility] Comment on above: Performed By: #### ANA Sheth BCA, 3298-7, 402-6, 5643-2 #### [facility] ([id number]) [address] [place] [address] 45252 #### 59827-9 #### [facility] ([id number]) [address] [facility], [address] [place] [address] Platelets (Bld) [#/Vol] 237 10*3/uL Normal 150-450 [facility] Comment on above: Performed By: #### C ANA DAVIS, 3298-7, 4-6, 5643-2 #### [facility] ([id number]) [address] [place] [address] 38562 #### 57428-3 #### [facility] ([id number]) [address] [place] [address], [address] [place] [address] RBC COUNT 5.00 X10E12/L Normal 4.10-5.70 [facility] Comment on above: Performed By: #### C ANA DAVIS, 3297-, 6, 5643-2 #### [facility] ([id number]) [address] [place] [address] 20898 #### 65608-1 #### [facility] ([id number]) [address] [place] [address], [address] [place] [address] WBC (Bld) [#/Vol] 7.2 10*3/uL Normal 4.0-11.0 [facility] Comment on above: Performed By: #### C ANA DAVIS, 3297-7, 4023-6, 5643-2 #### [facility] ([id number]) [address] [place] [address] 96488 #### 59264-6 #### [facility] ([id number]) [address] [place] [address], [address] [place] [address] DRUG SCREEN, URINEon 09-08-2 024 AMPHETAMINE/METHAMP Negative Normal NEG [facility] Comment on above: Result Comment: AMPH /METH screening cut off = 1000 ng/mL Performed By: #### C ANA DAVIS, 3297-7, 4023-6, 5643-2 #### [facility] ([id number]) [address] [place] [address] 71567 #### 70738-3 #### [facility] ([id number]) [address] [place] [address] BARBITURATES Negative Normal NEG [facility] Comment on above: Result Comment: Yenifer iturates screening cut off value = 200 ng/mL Performed By: #### C BCA, BMP, 3298-7, 4024-6, 5643-2 #### [facility] ([id number]) [address] [place] [address] 50163 #### 36274-9 #### [facility] ([id number]) [address] [facility], [address] [place] [address] BENZODIAZEPINES Positive Abnormal NEG [facility] Comment on above: Result Comment: Conf irmation available upon request. Benzodiazepines screening cut off value = 200 ng/mL Performed By: #### C BCA, BMP, 3298-7, 4024-6, 5643-2 #### [facility] ([id number]) [address] [place] [address] #### 85457-3 #### [facility] ([id number]) [address] [facility], [address] [place] [address] CANNABINOIDS Positive Abnormal NEG [facility] Comment on above: Result Comment: Conf irmation available upon request. Cannabinoids/THC screening cut off value = 50 ng/mL Performed By: #### C BCA, BMP, 3298-7, 4024-6, 5643-2 #### [facility] ([id number]) [address] [place] [address] 02755 #### 22456-1 #### [facility] ([id number]) [address] [facility], [address] [place] [address] COCAINE METABOLITE Negative Normal NEG [facility] Comment on above: Result Comment: Coca ine screening cut off value = 300 ng/mL Performed By: #### C BCA, BMP, 3298-7, 4024-6, 5643-2 #### [facility] ([id number]) [address] [place] [address] 04860 #### 90088-1 #### [facility] ([id number]) [address] [facility], [address] [place] [address] ECSTASY Negative Normal NEG [facility] Comment on above: Result Comment: Ecst asy screening cut off value = 500 ng/mL This report is intended for use in clinical monitoring or management of patients. Performed By: #### C BCA, BMP, 3298-7, 4024-6, 5643-2 #### [facility] ([id number]) [address] [place] [address] 53942 #### 69085-4 #### [facility] ([id number]) [facility], [address] [place] [address] METHADONE Negative Normal NEG [facility] Comment on above: Result Comment: Meth adone screening cut off value = 300 ng/mL. Performed By: #### C BCA, BMP, 3298-7, 4024-6, 5643-2 #### [facility] ([id number]) [address] [place] [address] 97893 #### 91859-6 #### [facility] ([id number]) [address] [facility], [address] [place] [address] OPIATES Negative Normal [facility] Comment on above: Result Comment: Opia rolando screening cut off value = 300 ng/mL NOTE: This test is used for the detection of codeine, hydrocodone (>1000 ng/mL), morphine and hydromorphone (>900 ng/mL) in urine. Performed By: #### C BCA, BMP, 3298-7, 4024-6, 5643-2 #### [facility] ([id number]) [address] [place] [address] 71685 #### 51982-4 #### [facility] ([id number]) [address] [facility], [address] [place] [address] OXYCODONE Negative Normal NEG [facility] Comment on above: Result Comment: Oxyc odone screening cut off value = 300 ng/mL NOTE: This test is used for the detection of oxycodone and oxymorphone in urine. Performed By: #### C BCA, BMP, 3298-7, 4024-6, 5643-2 #### [facility] ([id number]) [address] [place] [address] 13575 #### 39598-3 #### [facility] ([id number]) [address] [place] [address], [address] [place] [address] PHENCYCLIDINE Negative Normal NEG [facility] Comment on above: Result Comment: Phen cyclidine screening cut off value = 25 ng/mL Performed By: #### C SUSAN, BMP, 3298-7, 4024-6, 5643-2 #### [facility] ([id number]) [address] [place] [address] 71033 #### 09304-7 #### [facility] ([id number]) [address] [place] [address], [address] [place] [address] ETHANOLon 09-08-2024 Ethanol [Mass/Vol] mg/dL Normal 0.00-0.08 [facility] Comment on above: Result Comment: This report is intended for use in clinical monitoring or management of patients. Performed By: #### C BCA, BMP, 3298-7, 4024-6, 5643-2 #### [facility] ([id number]) [address] [place] [address] 69463 #### 57252-6 #### [facility] ([id number]) [address] [facility], [address] [place] [address] LIVER PANELon 09-08-2024 Albumin [Mass/Vol] 4.0 g/dL Normal 3.2-5.3 [facility] Comment on above: Performed By: #### C BCA, BMP, 3298-7, 4024-6, 5643-2 #### [facility] ([id number]) [address] [place] [address] 86998 #### 19928-4 #### [facility] ([id number]) [address] [place] [address], [facility] [address] [place] [address] ALP [Catalytic activity/Vol] 50 U/L Normal 39-130 [facility] Comment on above: Performed By: #### C BCA, BMP, 3298-7, 4024-6, 5643-2 #### [facility] ([id number]) [address] [place] [address] 44407 #### 02031-9 #### [facility] ([id number]) [address] [place] [address], [facility] [address] [place] [address] ALT [Catalytic activity/Vol] 28 U/L Normal 0-40 [facility] Comment on above: Performed By: #### C BCA, BMP, 3298-7, 4024-6, 5643-2 #### [facility] ([id number]) [address] [place] [address] 89890 #### 37104-2 #### [facility] ([id number]) [address] [place] [address], [address] [address] AST [Catalytic activity/Vol] 27 U/L Normal 0-41 [facility] Comment on above: Performed By: #### C BCA, BMP, 3298-7, 4024-6, 5643-2 #### [facility] ([id number]) [address] [place] [address] 23693 #### 12761-4 #### [facility] ([id number]) [address] [place] [address], [facility] [address] [place] [address] Bilirubin [Mass/Vol] 0.9 mg/dL Normal 0.3-1.2 [facility] Comment on above: Performed By: #### C BCA, BMP, 3298-7, 4024-6, 5643-2 #### [facility] ([id number]) [address] [place] [address] 83367 #### 10450-3 #### [facility] ([id number]) [address] [place] [address], [facility] [address] [place] [address] Bilirubin.direct [Mass/Vol] 0.1 mg/dL Normal 0.0-0.4 [facility] Comment on above: Performed By: #### C BCA, BMP, 3298-7, 4024-6, 5643-2 #### [facility] ([id number]) [address] [place] [address] 50684 #### 88328-4 #### [facility] ([id number]) [address] [place] [address], [address] [address] Protein [Mass/Vol] 6.4 g/dL Normal 6.0-8.0 [facility] Comment on above: Performed By: #### C BCA, BMP, 3297-7, 4024-6, 5643-2 #### [facility] ([id number]) [address] [place] [address] 38001 #### 16064-3 #### [facility] ([id number]) [address] [place] [address], [address] [address] Salicylates [Mass/Vol]on SALICYLATE <2.5 Normal 2.0-25.0 [facility] Comment on above: Result Comment: Refe rence ranges are for therapeutic limits. Performed By: #### C BCA, BMP, 3297-7, 4024-6, 5643-2 #### [facility] ([id number]) [address] [place] [address] 98989 #### 40218-6 #### [facility] ([id number]) [address] [place] [address], [address] [address] Tricyclic antidepressants [M ass/Vol]on 09-08-2024 TRICYCLICS Negative Normal NEG [facility] Comment on above: Performed By: #### C BCA, BMP, 8-7, 4024-6, 5643-2 #### [facility] ([id number]) [address] [place] [address] #### 57747-8 #### [facility] ([id number]) [address] [facility], [address] [place] [address] DSon 09-06-2024 DS Discharge Date: 08/26 Time Spent with Patient: 31 minutes spent with patient, discussing discharge instructions, ordering medications, reviewing lab work, communicating with other healthcare professionals, documenting clinical information and the patient's follow-up plan. Chief Complaint: Alcohol abuse and withdrawal Consults: GIM History of Present Illness: Daron Villarreal presented to [facility] for alcohol abuse and withdrawal. Patient reported to RN that he drinks 10 drinks of any kind of alcohol he can get. Recently switched from beer to liquor. Reports last drink being 09/05/2024 at noon. Patient reports withdrawal symptoms such as restlessness and agitation. Patient reported significant tolerance withdrawal symptoms over the years and multiple unsuccessful attempts to cut down or stop using alcohol and significant amount of time spent in getting alcohol, using alcohol, and recovering from its effect. Hospital Course: Per RN notes patient was irritable with staff and asking to leave. Lab Results: Results for orders placed or performed during the hospital encounter of 09/05/24 Acetaminophen level Result Value Ref Range Acetaminophen Level <10 (L) 10 - 30 ug/mL Basic metabolic panel Result Value Ref Range Sodium 137 136 - 145 mmol/L Potassium 3.9 3.5 - 5.1 mmol/L Chloride 105 98 - 107 mmol/L CO2 25 21 - 31 mmol/L BUN 14 7 - 25 mg/dL Creatinine 0.83 0.70 - 1.30 mg/dL Glucose 80 70 - 100 mg/dL Calcium 9.0 8.6 - 10.3 mg/dL Anion Gap 11 7 - 20 mmol/L eGFR 113.5 >60.0 mL/min/1.73m*2 BUN/Creatinine Ratio 16.9 Cholesterol, total Result Value Ref Range Cholesterol 199 120 - 200 mg/dL Gamma GT Result Value Ref Range GGT 23 9 - 64 U/L Hepatic function panel Result Value Ref Range Total Bilirubin 0.7 0.3 - 1.0 mg/dL Bilirubin, Direct 0.1 0 - 0.2 mg/dL Alkaline Phosphatase 45 34 - 104 U/L AST 20 13 - 39 U/L ALT (SGPT) 25 7 - 52 U/L Total Protein 6.7 6.0 - 8.3 g/dL Albumin 4.2 3.5 - 5.7 g/dL Magnesium Result Value Ref Range Magnesium 1.9 1.9 - 2.7 mg/dL Phosphorus Result Value Ref Range Phosphorus 4.3 2.5 - 5.0 mg/dL TSH Result Value Ref Range TSH 1.65 0.34 - 5.60 mIU/L Uric acid Result Value Ref Range Uric Acid 5.6 4.4 - 7.6 mg/dL Urinalysis Result Value Ref Range Color, Urine Light-Yellow Colorless, Yellow, Light-Yellow Clarity, Urine Clear Clear pH, Urine 5.5 5.0 - 8.0 pH Leukocytes, Urine Negative Negative Nitrite, Urine Negative Negative Protein, Urine Negative Negative mg/dL Glucose, Urine Normal Normal mg/dL Bilirubin, Urine Negative Negative Specific [facility], Urine 1.017 1.010 - 1.030 Ketones, Urine Negative Negative mg/dL Blood, Urine Negative Negative Urobilinogen, Urine Normal Normal mg/dL Detox Panel Urine Result Value Ref Range Barbiturate Screen, Ur Negative Negative Benzodiazepines Screen, Urine Positive (A) Negative Propoxyphene, Ur Negative Negative Methadone Screen, Urine Negative Negative TCA, Urine Negative Negative PCP Scrn, Ur Negative Negative Opiate Scrn, Ur Negative Negative Cocaine Screen, Urine Negative Negative Amphetamine+Methamphetamin e Screen, Ur Negative Negative Cannabinoid Screen, Urine Positive (A) Negative Alcohol Serum Result Value Ref Range Ethanol Calculated % Ethanol Lvl <10 mg/dL CBC auto differential Result Value Ref Range Auto WBC 7.15 4.00 - 10.60 10*3/uL RBC 5.08 4.20 - 5.70 10*6/uL Hemoglobin 15.3 13.0 - 17.0 g/dL Hematocrit 44.1 39.0 - 55.0 % MCV 86.8 82.0 - 98.0 fL MCH 30.1 27.0 - 33.0 pg MCHC 34.7 32.0 - 35.0 g/dL RDW 12.5 11.5 - 15.0 % Neutrophils Relative 48.0 40.0 - 72.0 % Lymphocytes Relative 35.8 20.0 - 45.0 % Monocytes Relative 9.8 5.0 - 12.0 % Eosinophils Relative 4.3 0.0 - 6.0 % Basophils Relative 1.7 (H) 0.0 - 1.0 % Neutrophils Absolute 3.43 1.60 - 7.60 10*3/uL Lymphocytes Absolute 2.56 1.20 - 4.00 10*3/uL Monocytes Absolute 0.70 0.10 - 1.00 10*3/uL Eosinophils Absolute 0.31 0.00 - 0.50 10*3/uL Basophils Absolute 0.12 0.00 - 0.20 10*3/uL Platelets 238 150 - 400 10*3/uL nRBC % 0.0 0 % Immature Granulocytes Relative 0.4 0.0 - 1.0 % Immature Granulocytes Absolute 0.03 0.00 - 0.20 10*3/uL Mental Status Exam: Not assessed. Per nursing note patient was irritable. Disposition: No follow up appointment made due to patient leaving AMA. Discharge Medications Your medication list ASK your doctor about these medications Instructions Last Dose Given Next Dose Due FLUoxetine 40 mg capsule Commonly known as: PROzac Take 1 capsule (40 mg) by mouth in the morning. Do not start before June 29, 2024. gabapentin 300 mg capsule Commonly known as: Neurontin Take 1 capsule (300 mg) by mouth if needed in the morning, at noon, and at bedtime (for muscle, body aches) for up to 7 days. hydrOXYzine pamoate 25 mg capsule Commonly known as: Vistaril Take 1 capsule (25 mg) by mouth if needed in the morning, at noon, and at (more content not included)... Normal [facility] 09-06-2024 Chief Complaint: Alc ohol abuse and withdrawal Consults: GIM History of Present Illness: Daron Villarreal presented to [facility] for alcohol abuse and withdrawal. Patient reported to RN that he drinks 10 drinks of any kind of alcohol he can get. Recently switched from beer to liquor. Reports last drink being 09/05/2024 at noon. Patient reports withdrawal symptoms such as restlessness and agitation. Patient reported significant tolerance withdrawal symptoms over the years and multiple unsuccessful attempts to cut down or stop using alcohol and significant amount of time spent in getting alcohol, using alcohol, and recovering from its effect. Hospital Course: Per RN notes patient was irritable with staff and asking to leave. Lab Results: Results for orders placed or performed during the hospital encounter of 09/05/24 Acetaminophen level Result Value Ref Range Acetaminophen Level <10 (L) 10 - 30 ug/mL Basic metabolic panel Result Value Ref Range Sodium 137 136 - 145 mmol/L Potassium 3.9 3.5 - 5.1 mmol/L Chloride 105 98 - 107 mmol/L CO2 25 21 - 31 mmol/L BUN 14 7 - 25 mg/dL Creatinine 0.83 0.70 - 1.30 mg/dL Glucose 80 70 - 100 mg/dL Calcium 9.0 8.6 - 10.3 mg/dL Anion Gap 11 7 - 20 mmol/L eGFR 113.5 >60.0 mL/min/1.73m*2 BUN/Creatinine Ratio 16.9 Cholesterol, total Result Value Ref Range Cholesterol 199 120 - 200 mg/dL Gamma GT Result Value Ref Range GGT 23 9 - 64 U/L Hepatic function panel Result Value Ref Range Total Bilirubin 0.7 0.3 - 1.0 mg/dL Bilirubin, Direct 0.1 0 - 0.2 mg/dL Alkaline Phosphatase 45 34 - 104 U/L AST 20 13 - 39 U/L ALT (SGPT) 25 7 - 52 U/L Total Protein 6.7 6.0 - 8.3 g/dL Albumin 4.2 3.5 - 5.7 g/dL Magnesium Result Value Ref Range Magnesium 1.9 1.9 - 2.7 mg/dL Phosphorus Result Value Ref Range Phosphorus 4.3 2.5 - 5.0 mg/dL TSH Result Value Ref Range TSH 1.65 0.34 - 5.60 mIU/L Uric acid Result Value Ref Range Uric Acid 5.6 4.4 - 7.6 mg/dL Urinalysis Result Value Ref Range Color, Urine Light-Yellow Colorless, Yellow, Light-Yellow Clarity, Urine Clear Clear pH, Urine 5.5 5.0 - 8.0 pH Leukocytes, Urine Negative Negative Nitrite, Urine Negative Negative Protein, Urine Negative Negative mg/dL Glucose, Urine Normal Normal mg/dL Bilirubin, Urine Negative Negative Specific [facility], Urine 1.017 1.010 - 1.030 Ketones, Urine Negative Negative mg/dL Blood, Urine Negative Negative Urobilinogen, Urine Normal Normal mg/dL Detox Panel Urine Result Value Ref Range Barbiturate Screen, Ur Negative Negative Benzodiazepines Screen, Urine Positive (A) Negative Propoxyphene, Ur Negative Negative Methadone Screen, Urine Negative Negative TCA, Urine Negative Negative PCP Scrn, Ur Negative Negative Opiate Scrn, Ur Negative Negative Cocaine Screen, Urine Negative Negative Amphetamine+Methamphetamin e Screen, Ur Negative Negative Cannabinoid Screen, Urine Positive (A) Negative Alcohol Serum Result Value Ref Range Ethanol Calculated % Ethanol Lvl <10 mg/dL CBC auto differential Result Value Ref Range Auto WBC 7.15 4.00 - 10.60 10*3/uL RBC 5.08 4.20 - 5.70 10*6/uL Hemoglobin 15.3 13.0 - 17.0 g/dL Hematocrit 44.1 39.0 - 55.0 % MCV 86.8 82.0 - 98.0 fL MCH 30.1 27.0 - 33.0 pg MCHC 34.7 32.0 - 35.0 g/dL RDW 12.5 11.5 - 15.0 % Neutrophils Relative 48.0 40.0 - 72.0 % Lymphocytes Relative 35.8 20.0 - 45.0 % Monocytes Relative 9.8 5.0 - 12.0 % Eosinophils Relative 4.3 0.0 - 6.0 % Basophils Relative 1.7 (H) 0.0 - 1.0 % Neutrophils Absolute 3.43 1.60 - 7.60 10*3/uL Lymphocytes Absolute 2.56 1.20 - 4.00 10*3/uL Monocytes Absolute 0.70 0.10 - 1.00 10*3/uL Eosinophils Absolute 0.31 0.00 - 0.50 10*3/uL Basophils Absolute 0.12 0.00 - 0.20 10*3/uL Platelets 238 150 - 400 10*3/uL nRBC % 0.0 0 % Immature Granulocytes Relative 0.4 0.0 - 1.0 % Immature Granulocytes Absolute 0.03 0.00 - 0.20 10*3/uL Mental Status Exam: Not assessed. Per nursing note patient was irritable. Disposition: No follow up appointment made due to patient leaving AMA. Discharge Medications Your medication list ASK your doctor about these medications Instructions Last Dose Given Next Dose Due FLUoxetine 40 mg capsule Commonly known as: PROzac Take 1 capsule (40 mg) by mouth in the morning. Do not start before June 29, 2024. gabapentin 300 mg capsule Commonly known as: Neurontin Take 1 capsule (300 mg) by mouth if needed in the morning, at noon, and at bedtime (for muscle, body aches) for up to 7 days. hydrOXYzine pamoate 25 mg capsule Commonly known as: Vistaril Take 1 capsule (25 mg) by mouth if needed in the morning, at noon, and at bedtime for anxiety for up to 7 days. levothyroxine 50 mcg tablet Commonly known as: Synthroid, Levoxyl Take 1 tablet (50 mcg) by mouth before breakfast. omeprazole [address] capsule Commonly known as: PriLOSEC QUEtiapine 100 mg tablet Commonly known as: SEROquel Smitha stone (more content not included)... [facility] NURSNOTEon 09-06-2024 NURSNOTE Tattoo Technician was on break and heard patient yelling from the hallway. Fellow nurse was helping patient with his needs and he was impatient while nurse covering was in the back room. He started getting loud and yelling and approaching fellow nurse angrily as if he was going to hit her. He was cursing and calling the nurse names. Lead nurse approached. Told patient he's going to have to leave, patient states I'm gonna leave anyway! I need to make a phone call! You aren't just gonna kick me out! Security was called. Patient on the phone getting a ride. Dr. Chauhan notified of patient's behavior and him wanting to leave. Dr. Chauhan said okay. Security, house coordinator, and lead present. Patient signed AMA paper and security escorted out. Normal [facility] JODY Vital signs complete d. Patient complains of the shakes and unable to sleep. No visible tremor seen or felt. Explained to patient he had trazodone already per his request. Patient states: I guess I'll just lay her all night awake. Tattoo Technician gave report to lead rn who is covering break. Normal [facility] ACETAMINOPHEN LEVELon 2023 ACETAMINOPHEN (UG/ML) IN SER/PLAS <10 Low 10-30 [facility] Comment on above: Performed By: #### L AB34 #### [facility] ([facility]) [address] [place] [address] BASIC METABOLIC PANELon 11- Anion gap [Moles/Vol] 11 mmol/L Normal 7-20 [facility] Comment on above: Performed By: #### L AB85 #### [facility] ([facility]) [address] [place] [address] Calcium [Mass/Vol] 9.0 mg/dL Normal 8.6-10.3 [facility] Comment on above: Performed By: #### L AB85 #### [facility] ([facility]) [address] [place] [address] Chloride [Moles/Vol] 105 mmol/L Normal 98-107 [facility] Comment on above: Performed By: #### L AB85 #### [facility] ([facility] CENTER) [address] [place] [address] CO2 [Moles/Vol] 25 mmol/L Normal 21-31 [facility] Comment on above: Performed By: #### L [id number] #### [facility] ([facility]) [address] [place] [address] Creatinine [Mass/Vol] 0.83 mg/dL Normal 0.70-1.30 [facility] Comment on above: Performed By: #### L [id number] #### [facility] ([facility]) [address] [place] [address] GLOMERULAR FILTRATION RATE ML/MIN/1.73 SQ M.PREDICTED 113.5 mL/min/1.73m*2 Normal >60.0 [facility] Comment on above: Result Comment: The [facility]???s estimated glomerular filtration rate (eGFR) will no longer include consideration of race in its calculation. The National Kidney Foundation???s eGFR Task Force developed new recommendations for the estimation of the glomerular filtration rate in the [place] They recommend immediate implementation of the new equation refit without the race variable in all laboratories because the calculation does not include race. In addition to not including race in the calculation and reporting, it included diversity in its development, and has acceptable performance characteristics and potential consequences that do not disproportionately affect any one group of individuals. Performed By: #### L [id number] #### [facility] ([facility]) [address] [place] [address] Glucose [Mass/Vol] 80 mg/dL Normal 70-100 [facility] Comment on above: Performed By: #### L [id number] #### [facility] ([facility]) [address] [place] [address] Potassium [Moles/Vol] 3.9 mmol/L Normal 3.5-5.1 [facility] Comment on above: Performed By: #### L [id number] #### [facility] ([facility]) [address] [place] [address] Sodium [Moles/Vol] 137 mmol/L Normal 136-145 [facility] Comment on above: Performed By: #### L [id number] #### [facility] ([facility]) [address] [facility] [place] [address] Urea nitrogen [Mass/Vol] 14 mg/dL Normal 7-25 [facility] Comment on above: Performed By: #### L [id number] #### [facility] ([facility]) [address] [facility] [place] [address] UREA NITROGEN/CREATININE (MASS RATIO) IN SER/PLAS 16.9 Normal [facility] Comment on above: Performed By: #### L [id number] #### [facility] ([facility]) [address] [place] [address] CBC WITH AUTO DIFFERENTIALon 09-05-2024 Basophils (Bld) [#/Vol] 0.12 10*3/uL Normal 0.00-0.20 [facility] Comment on above: Performed By: #### L [id number] #### [facility] ([facility]) [address] [place] [address] Basophils/100 WBC (Bld) 1.7 % High 0.0-1.0 [facility] Comment on above: Performed By: #### L [id number] #### [facility] ([facility]) [address] [place] [address] Eosinophils (Bld) [#/Vol] 0.31 10*3/uL Normal 0.00-0.50 [facility] Comment on above: Performed By: #### L [id number] #### [facility] (BEAKER) [address] [place] [address] Eosinophils/100 WBC (Bld) 4.3 % Normal 0.0-6.0 [facility] Comment on above: Performed By: #### L [id number] #### [facility] [address] [place] [address] Erythrocyte distribution width (RBC) [Ratio] 12.5 % Normal 11.5-15.0 [facility] Comment on above: Performed By: #### L [id number] #### [facility] [address] [place] [address] ERYTHROCYTE MEAN CORPUSCULAR HEMOGLOBIN CONCENTRATION (G/DL) BY AUTOMATED 34.7 g/dL Normal 32.0-35.0 [facility] Comment on above: Performed By: #### L [id number] #### [facility] ([facility]) [address] [place] [address] Hematocrit (Bld) [Volume fraction] 44.1 % Normal 39.0-55.0 [facility] Comment on above: Performed By: #### L [id number] #### [facility] (BEAKER) [address] [place] [address] Hemoglobin (Bld) [Mass/Vol] 15.3 g/dL Normal 13.0-17.0 [facility] Comment on above: Performed By: #### L [id number] #### [facility] (BEAK[facility]) [address] [place] [address] Immature granulocytes (Bld) [#/Vol] 0.03 10*3/uL Normal 0.00-0.20 [facility] Comment on above: Performed By: #### L [id number] #### [facility] (BEAKER) [address] [place] [address] Immature granulocytes/100 WBC (Bld) 0.4 % Normal 0.0-1.0 [facility] Comment on above: Performed By: #### L [id number] #### [facility] ([facility]) [address] [place] [address] Lymphocytes (Bld) [#/Vol] 2.56 10*3/uL Normal 1.20-4.00 [facility] Comment on above: Performed By: #### L [id number] #### [facility] ([facility]) [address] [place] [address] Lymphocytes/100 WBC (Bld) 35.8 % Normal 20.0-45.0 [facility] Comment on above: Performed By: #### L [id number] #### [facility] ([facility]) [address] [place] [address] MCH (RBC) [Entitic mass] 30.1 pg Normal 27.0-33.0 [facility] Comment on above: Performed By: #### L [id number] #### [facility] ([facility]) [address] [place] [address] MCV (RBC) [Entitic vol] 86.8 fL Normal 82.0-98.0 [facility] Comment on above: Performed By: #### L [id number] #### [facility] ([facility]) [address] [place] [address] Monocytes (Bld) [#/Vol] 0.70 10*3/uL Normal 0.10-1.00 [facility] Comment on above: Performed By: #### L [id number] #### [facility] ([facility]) [address] [place] [address] Monocytes/100 WBC (Bld) 9.8 % Normal 5.0-12.0 [facility] Comment on above: Performed By: #### L [id number] #### [facility] ([facility]) [address] [place] [address] Neutrophils (Bld) [#/Vol] 3.43 10*3/uL Normal 1.60-7.60 [facility] Comment on above: Performed By: #### L [id number] #### [facility] ([facility]) [address] [place] [address] Neutrophils/100 WBC (Bld) 48.0 % Normal 40.0-72.0 [facility] Comment on above: Performed By: #### L [id number] #### [facility] ([facility]) [address] [place] [address] NRBC (PER 100 WBCS) BY AUTOMATED COUNT 0.0 % Normal 0 [facility] Comment on above: Performed By: #### L [id number] #### [facility] ([facility]) [address] [place] [place] [address] PLATELETS (10*3/UL) IN BLOOD AUTOMATED COUNT 238 10*3/uL Normal 150-400 [facility] Comment on above: Performed By: #### L [id number] #### [facility] ([facility]) [address] [place] [address] RBC (Bld) [#/Vol] 5.08 10*6/uL Normal 4.20-5.70 [facility] Comment on above: Performed By: #### L [id number] #### [facility] ([facility]) [address] [place] [address] WBC (Bld) [#/Vol] 7.15 10*3/uL Normal 4.00-10.60 [facility] Comment on above: Performed By: #### L [id number] #### [facility] ([facility]) [address] [place] [address] CHOLESTEROL, TOTALon 09-05- 024 Cholesterol [Mass/Vol] 199 mg/dL Normal 120-200 [facility] Comment on above: Result Comment: CHOL ESTEROL REFERENCE RANGE: 20 YEARS AND OLDER CARDIOVASCULAR RISK Less than 200 mg/dL Low Risk 200 to 239 mg/dL Borderline Risk 240 mg/dL and greater High Risk Performed By: #### L [id number] #### [facility] ([facility]) [address] [place] [address] DETOX PANEL URINEon 11-11-20 24 AMPHETAMINE+METHAMPHE TAMINE SCREEN (PRESENCE) IN URINE Negative Normal Negative [facility] Comment on above: Performed By: #### L [id number] #### [facility] ([facility]) [address] [place] [address] BARBITURATES PRESENCE IN URINE BY SCREEN METHOD Negative Normal Negative [facility] Comment on above: Performed By: #### L [id number] #### [facility] ([facility]) [address] [place] [address] Benzodiazepines Ql (U) Positive Abnormal Negative [facility] Comment on above: Performed By: #### L [id number] #### [facility] ([facility]) [address] [place] [address] CANNABINOID (PRESENCE) IN URINE BY SCREEN METHOD Positive Abnormal Negative [facility] Comment on above: Performed By: #### L [id number] #### [facility] ([facility]) [address] [place] [address] Cocaine Ql (U) Negative Normal Negative [facility] Comment on above: Performed By: #### L [id number] #### [facility] ([facility]) [address] [place] [address] METHADONE (PRESENCE) IN URINE BY SCREEN METHOD Negative Normal Negative [facility] Comment on above: Performed By: #### L [id number] #### [facility] ([facility]) [address] [place] [address] OPIATES (PRESENCE) IN URINE BY SCREEN METHOD Negative Normal Negative [facility] Comment on above: Performed By: #### L [id number] #### [facility] ([facility]) [address] [place] [address] PHENCYCLIDINE PRESENCE IN URINE BY SCREEN METHOD Negative Normal Negative [facility] Comment on above: Performed By: #### L [id number] #### [facility] ([facility]) [address] [place] [address] Propoxyphene Screen Ql (U) Negative Normal Negative [facility] Comment on above: Performed By: #### L [id number] #### [facility]) [address] [place] [address] TRICYCLIC ANTIDEPRESSANTS (PRESENCE) IN URINE Negative Normal Negative [facility] Comment on above: Performed By: #### L [id number] #### [facility] ([facility]AK[facility]) [address] [place] [address] ETHANOLon 09-05-2024 ETHANOL (MG/DL) IN SER/PLAS <10 Normal [facility] Comment on above: Performed By: #### L [id number] #### [facility] ([facility]) [address] [place] [address] ETHANOL CALCULATED (%) Normal [facility] Comment on above: Performed By: #### L [id number] #### [facility] [address] [place] [address] GAMMA GTon 09-05-2024 Amylase [Catalytic activity/Vol] 23 U/L Normal 9-64 [facility] Comment on above: Performed By: #### L [id number] #### [facility] ([facility]) [address] [place] [address] HEPATIC FUNCTION PANELon Albumin [Mass/Vol] 4.2 g/dL Normal 3.5-5.7 [facility] Comment on above: Performed By: #### L [id number] #### [facility] ([facility]) [address] [place] [address] ALP [Catalytic activity/Vol] 45 U/L Normal 34-104 [facility] Comment on above: Performed By: #### L [id number] #### [facility] ([facility]AK[facility]) [address] [place] [address] ALT [Catalytic activity/Vol] 25 U/L Normal 7-52 [facility] Comment on above: Performed By: #### L [id number] #### [facility] ([facility]AKER) [address] [place] [address] AST [Catalytic activity/Vol] 20 U/L Normal 13-39 [facility] Comment on above: Performed By: #### L [id number] #### [facility] ([facility]) [address] [place] [address] Bilirubin [Mass/Vol] 0.7 mg/dL Normal 0.3-1.0 [facility] Comment on above: Performed By: #### L [id number] #### [facility] ([facility]) [address] [place] [address] Magnesium [Mass/Vol] 0.1 mg/dL Normal 0-0.2 [facility] Comment on above: Performed By: #### L [id number] #### [facility] ([facility]) [address] [place] [address] Protein [Mass/Vol] 6.7 g/dL Normal 6.0-8.3 [facility] Comment on above: Performed By: #### L [id number] #### [facility] ([facility]) [address] [place] [address] MAGNESIUMon 09-05-2024 Magnesium [Mass/Vol] 1.9 mg/dL Normal 1.9-2.7 [facility] Comment on above: Performed By: #### L [id number] #### [facility] ([facility]) [address] [place] [address] NURSNOTEon 09-05-2024 NURSNOTE Evening meds given a long with PRN bentyl for stomach cramps and vistaril for anxiety. Patient denies any other needs at this time. Normal [facility] NURSNOTE Vital signs and asse ssment completed. Patient complains of anxiety, restlessness, and stomach cramps. No sweating or tremor noted. Will give PRNs. Normal [facility] NURSNOTE Patient feeling anxi ous asked for clonidine, states that he doesn't like vistaril or gabapentin. Normal [facility] NURSNOTE Patient admitted wit h intentions to withdrawal from alcohol. States he will have 10 drinks of any kind throughout the day. States he recently went from drinking beers regularly to switching to hard liquor. Last drink was about noon today. Patient compliant with the check in process. States he feels his bipolar depression is impacting him daily. CIWA is currently 0. Normal [facility] PHOSPHORUSon 09-05-2024 Magnesium [Mass/Vol] 4.3 mg/dL Normal 2.5-5.0 [facility] Comment on above: Performed By: #### L [id number] #### [facility] ([facility]) [address] [place] [address] RPRon 09-05-2024 REAGIN AB PRESENCE IN SERUM BY RPR Non-Reactive Normal Nonreactive [facility] Comment on above: Performed By: #### L [id number] #### [facility] ([facility]) [address] [place] [address] TSHon 09-05-2024 THYROTROPIN (MIU/L) IN SER/PLAS BY DETECTION LIMIT <= 0.05 MIU/L 1.65 mIU/L Normal 0.34-5.60 [facility] Comment on above: Performed By: #### L [id number] #### [facility] ([facility]) [address] [place] [address] URIC ACIDon 09-05-2024 Magnesium [Mass/Vol] 5.6 mg/dL Normal 4.4-7.6 [facility] Comment on above: Performed By: #### L [id number] #### [facility] ([facility]) [address] [place] [address] URINALYSISon 09-05-2024 BILIRUBIN, TOTAL PRESENCE IN URINE Negative Normal Negative [facility] Comment on above: Order Comment: Micro scopics not performed on urines with negative chemical reactions unless requested on original order. Performed By: #### L [id number] #### [facility] ([facility]) [address] [place] [address] Clarity (U) Clear Normal Clear [facility] Comment on above: Order Comment: Micro scopics not performed on urines with negative chemical reactions unless requested on original order. Performed By: #### L [id number] #### [facility] (BEAKER) [address] [place] [address] Color (U) Light-Yellow Normal Colorless, Yellow, Light-Yellow [facility] Comment on above: Order Comment: Micro scopics not performed on urines with negative chemical reactions unless requested on original order. Performed By: #### L [id number] #### [facility] ([facility]) [address] [place] [address] GLUCOSE (MG/DL) IN URINE Normal Normal Normal [facility] Comment on above: Order Comment: Micro scopics not performed on urines with negative chemical reactions unless requested on original order. Performed By: #### L [id number] #### [facility] ([facility]) [address] [place] [address] HEMOGLOBIN PRESENCE IN URINE Negative Normal Negative [facility] Comment on above: Order Comment: Micro scopics not performed on urines with negative chemical reactions unless requested on original order. Performed By: #### L [id number] #### [facility] ([facility]) [address] [place] [address] Ketones Ql (U) Negative Normal Negative [facility] Comment on above: Order Comment: Micro scopics not performed on urines with negative chemical reactions unless requested on original order. Performed By: #### L [id number] #### [facility] ([facility]) [address] [place] [address] LEUKOCYTE ESTERASE PRESENCE IN URINE BY TEST STRIP Negative Normal Negative [facility] Comment on above: Order Comment: Micro scopics not performed on urines with negative chemical reactions unless requested on original order. Performed By: #### L [id number] #### [facility] ([facility]) [address] [place] [address] NITRITE PRESENCE IN URINE Negative Normal Negative [facility] Comment on above: Order Comment: Micro scopics not performed on urines with negative chemical reactions unless requested on original order. Performed By: #### L [id number] #### [facility] [address] [place] [address] pH (U) 5.5 [pH] Normal 5.0-8.0 [facility] Comment on above: Order Comment: Micro scopics not performed on urines with negative chemical reactions unless requested on original order. Performed By: #### L [id number] #### [facility] ([facility]) [address] [place] [address] Protein (U) [Mass/Vol] Negative Normal Negative [facility] Comment on above: Order Comment: Micro scopics not performed on urines with negative chemical reactions unless requested on original order. Performed By: #### L [id number] #### [facility] ([facility]) [address] [place] [address] Specific gravity (U) [Rel density] 1.017 Normal 1.010-1.030 [facility] Comment on above: Order Comment: Micro scopics not performed on urines with negative chemical reactions unless requested on original order. Performed By: #### L [id number] #### [facility] ([facility]) [address] [place] [address] UROBILINOGEN (MG/DL) IN URINE Normal Normal Normal [facility] Comment on above: Order Comment: Micro scopics not performed on urines with negative chemical reactions unless requested on original order. Performed By: #### L [id number] #### [facility] ([facility]) [address] [place] [address] Comp Metabolic Profon 2023 Albumin [Mass/Vol] 4.0 g/dL Normal 3.5-5.2 [facility] Comment on above: Performed By: #### F T4, CP, TSHX, CBC, EDTOX #### [facility] [address] [place] [address] Vegetable Grader: Jesús Bhatt DO Alkaline Phos 61 U/L Normal 40-129 [facility] Comment on above: Performed By: #### F T4, CP, TSHX, CBC, EDTOX #### [facility] [address] [place] [address] Vegetable Grader: Jesús Bhatt DO Protein [Mass/Vol] 6.7 g/dL Normal 6.6-8.7 [facility] Comment on above: Performed By: #### F T4, CP, TSHX, CBC, EDTOX #### [facility] [address] [place] [address] Vegetable Grader: Jesús Bhatt DO ALT [Catalytic activity/Vol] 31 U/L Normal 10-50 [facility] Comment on above: Performed By: #### F T4, CP, TSHX, CBC, EDTOX #### [facility] [address] [place] [address] Vegetable Grader: Jesús Bhatt DO Anion gap [Moles/Vol] 13 mmol/L Normal 9-16 [facility] Comment on above: Performed By: #### F T4, CP, TSHX, CBC, EDTOX #### [facility] [address] [place] [address] Vegetable Grader: Jesús Bhatt DO AST [Catalytic activity/Vol] 28 U/L Normal 10-50 [facility] Comment on above: Performed By: #### F T4, CP, TSHX, CBC, EDTOX #### [facility] [address] [place] [address] Vegetable Grader: Jesús Bhatt DO Bilirubin [Mass/Vol] 0.3 mg/dL Normal 0.0-1.2 [facility] Comment on above: Performed By: #### F T4, CP, TSHX, CBC, EDTOX #### [facility] [address] [place] [address] Vegetable Grader: Jesús Bhatt DO Calcium [Mass/Vol] 8.7 mg/dL Normal 8.6-10.4 [facility] Comment on above: Performed By: #### F T4, CP, TSHX, CBC, EDTOX #### [facility] [address] [place] [address] Vegetable Grader: Jesús Bhatt DO Chloride [Moles/Vol] 104 mmol/L Normal 98-107 [facility] Comment on above: Performed By: #### F T4, CP, TSHX, CBC, EDTOX #### [facility] [address] [place] [address] Vegetable Grader: Jesús Bhatt DO CO2 [Moles/Vol] 20 mmol/L Normal 20-31 [facility] Comment on above: Performed By: #### F T4, CP, TSHX, CBC, EDTOX #### [facility] [address] [place] [address] Vegetable Grader: Jesús Bhatt DO Creatinine [Mass/Vol] 1.1 mg/dL Normal 0.7-1.2 [facility] [facility] [place] Comment on above: Performed By: #### F T4, CP, TSHX, CBC, EDTOX #### [facility] [address] [place] [address] Vegetable Grader: Jesús Bhatt DO GFR/1.73 sq M.predicted among non-blacks MDRD (S/P/Bld) [Vol rate/Area] 88 mL/min/{1.73_m2} Normal >60 [facility] Comment on above: Result Comment: These results are not intended for use in patients <18 years of age. eGFR results are calculated without a race factor using the 2020 CKD-EPI equation. Careful clinical correlation is recommended, particularly when comparing to results calculated using previous equations. The CKD-EPI equation is less accurate in patients with extremes of muscle mass, extra-renal metabolism of creatine, excessive creatine ingestion, or following therapy that affects renal tubular secretion. Performed By: #### F T4, CP, TSHX, CBC, EDTOX #### [facility] [address] [place] [address] Vegetable Grader: Jesús Bhatt DO Glucose [Mass/Vol] 93 mg/dL Normal 74-99 [facility] Comment on above: Performed By: #### F T4, CP, TSHX, CBC, EDTOX #### [facility] [address] [place] [address] Vegetable Grader: Jesús Bhatt DO Potassium [Moles/Vol] 4.0 mmol/L Normal 3.7-5.3 [facility] [place] Comment on above: Result Comment: Spec imen hemolysis has exceeded the interference as defined by [place]. Value may be falsely increased. Suggest recollection if clinically indicated. Performed By: #### F T4, CP, TSHX, CBC, EDTOX #### [facility] [address] [place] [address] Vegetable Grader: Jesús Bhatt DO Sodium [Moles/Vol] 137 mmol/L Normal 136-145 [facility] Comment on above: Performed By: #### F T4, CP, TSHX, CBC, EDTOX #### [facility] [address] [place] [address] Vegetable Grader: Jesús Bhatt DO Urea nitrogen [Mass/Vol] 22 mg/dL High 6-20 [facility] Comment on above: Performed By: #### F T4, CP, TSHX, CBC, EDTOX #### [facility] [address] [place] [address] Vegetable Grader: Jesús Bhatt DO TSH w/reflex to FT4on 2023 Thyroid Stim. Horm. 6.46 uIU/mL High 0.27-4.20 [facility] Comment on above: Performed By: #### F T4, CP, TSHX, CBC, EDTOX #### [facility] [address] [place] [address] Vegetable Grader: Jesús Bhatt DO Thyroxine, Freeon 09-01-2024 Thyroxine, Free 1.0 ng/dL Normal 0.9-1.7 [facility] Comment on above: Performed By: #### F T4, CP, TSHX, CBC, EDTOX #### [facility] [address] [place] [address] Vegetable Grader: Jesús Bhatt DO Tox Scr, Bld, EDon Acetaminophen [Mass/Vol] ug/mL Low 10-30 [facility] Comment on above: Performed By: #### F T4, CP, TSHX, CBC, EDTOX #### [facility] [address] [place] [address] Vegetable Grader: Jesús Bhatt DO Ethanol [Mass/Vol] mg/dL Normal <10 [facility] Comment on above: Performed By: #### F T4, CP, TSHX, CBC, EDTOX #### [facility] [address] [place] [address] Vegetable Grader: Jesús Bhatt DO Ethanol percent Can not be calculated Normal <0.010 [facility] Comment on above: Performed By: #### F T4, CP, TSHX, CBC, EDTOX #### [facility] [address] [place] [address] Vegetable Grader: Jesús Bhatt DO Salicylate <1.0 Normal 0.0-10.0 [facility] Comment on above: Performed By: #### F T4, CP, TSHX, CBC, EDTOX #### [facility] [address] [place] [address] Vegetable Grader: Jesús Bhatt DO CBCon 08-31-2024 Erythrocyte distribution width (RBC) [Ratio] 13.1 % Normal 11.5-14.9 [facility] Comment on above: Performed By: #### F T4, CP, TSHX, CBC, EDTOX #### [facility] [address] [place] [address] Vegetable Grader: Jesús Bhatt DO Hematocrit (Bld) [Volume fraction] 43.3 % Normal 41-53 [facility] Comment on above: Performed By: #### F T4, CP, TSHX, CBC, EDTOX #### [facility] [address] [place] [address] Vegetable Grader: Jesús Bhatt DO Hemoglobin (Bld) [Mass/Vol] 15.2 g/dL Normal 13.5-17.5 [facility] Comment on above: Performed By: #### F T4, CP, TSHX, CBC, EDTOX #### [facility] [place] [address] Vegetable Grader: Jesús Bhatt DO MCH (RBC) [Entitic mass] 31.4 pg Normal 26-34 [facility] Comment on above: Performed By: #### F T4, CP, TSHX, CBC, EDTOX #### [facility] [place] [address] Vegetable Grader: Jesús Bhatt DO MCHC (RBC) [Mass/Vol] 35.2 g/dL Normal 31-37 [facility] [place] Comment on above: Performed By: #### F T4, CP, TSHX, CBC, EDTOX #### [facility] [place] [address] Vegetable Grader: Jesús Bhatt DO MCV (RBC) [Entitic vol] 89.0 fL Normal 80-100 [facility] Comment on above: Performed By: #### F T4, CP, TSHX, CBC, EDTOX #### [facility] [place] [address] Vegetable Grader: Jesús Bhatt DO Platelet mean volume (Bld) [Entitic vol] 7.5 fL Normal 6.0-12.0 [facility] Comment on above: Performed By: #### F T4, CP, TSHX, CBC, EDTOX #### [facility] [address] [place] [address] Vegetable Grader: Jesús Bhatt DO Platelets (Bld) [#/Vol] 247 10*3/uL Normal 150-450 [facility] Comment on above: Performed By: #### F T4, CP, TSHX, CBC, EDTOX #### [facility] [address] [place] [address] Vegetable Grader: Jesús Bhatt DO RBC (Bld) [#/Vol] 4.86 10*6/uL Normal 4.5-5.9 [facility] Comment on above: Performed By: #### F T4, CP, TSHX, CBC, EDTOX #### [facility] [place] [address] Vegetable Grader: Jesús Bhatt DO WBC (Bld) [#/Vol] 9.0 10*3/uL Normal 3.5-11.0 [facility] Comment on above: Performed By: #### F T4, CP, TSHX, CBC, EDTOX #### [facility] [place] [address] Vegetable Grader: Jesús Bhatt DO Drug Scr, Abuse, Uron 2023 Amphetamine(s),Ur Negative Normal NEG [facility] Comment on above: Result Comment: Cuto ff: 1000 ng/mL Performed By: #### U TAD, LATASHA #### [facility] [address] [place] [address] Vegetable Grader: Jesús Bhatt DO Barbiturate(s),Ur Negative Normal NEG [facility] Comment on above: Result Comment: Cuto ff: 200 ng/ml Performed By: #### U TAD, LATASHA #### [facility] [address] [place] [address] Vegetable Grader: Jesús Bhatt DO Benzodiazepine(s) Positive Abnormal NEG [facility] Comment on above: Result Comment: Cuto ff: 200 ng/ml Performed By: #### U TAD, LATASHA #### [facility] [address] [place] [address] Vegetable Grader: Jesús Bhtat DO Cannabinoid(s),Ur Positive Abnormal NEG [facility] Comment on above: Result Comment: Cuto ff: 50 ng/ml Performed By: #### U TAD, LATASHA #### [facility] [address] [place] [address] Vegetable Grader: Jesús Bhatt DO Cocaine Metabolite Negative Normal NEG [facility] Comment on above: Result Comment: Cuto ff: 300 ng/ml Performed By: #### U TAD, LATASHA #### [facility] [address] [place] [address] Vegetable Grader: Jesús Bhatt DO Fentanyl, Urine Negative Normal NEG [facility] Comment on above: Result Comment: Cuto ff: 5 ng/ml Performed By: #### U TAD, LATASHA #### [facility] [address] [place] [address] Vegetable Grader: Jesús Bhatt DO Methadone Ql (U) Negative Normal NEG [facility] Comment on above: Result Comment: Cuto ff: 300 ng/ml Performed By: #### U TAD, LATASHA #### [facility] [address] [place] [address] Vegetable Grader: Jesús Bhatt DO Opiate(s), Ur Negative Normal NEG [facility] Comment on above: Result Comment: Cuto ff: 300 ng/ml Performed By: #### U TAD, LATASHA #### [facility] [address] [place] [address] Vegetable Grader: Jesús Bhatt DO Oxycodone, Urine Negative Normal NEG [facility] Comment on above: Result Comment: Cuto ff: 100 ng/ml Performed By: #### U MARLENE, LATASHA #### [facility] [address] [place] [address] Vegetable Grader: Jesús Bhatt DO Phencyclidine, Ur Negative Normal NEG [facility] Comment on above: Result Comment: Cuto ff: 25 ng/ml Performed By: #### U TAD, LATASHA #### [facility] [address] [place] [address]. [place] [address] Vegetable Grader: Jesús Bhatt DO Interpretive Info This method is a scr eening test to detect only these drug classes as part of a Normal [facility] Comment on above: Result Comment: medi helen workup. Confirmatory testing by another method should be ordered if clinically indicated. Performed By: #### Alex ROSARIO, LATASHA #### [facility] [place] [address] Vegetable Grader: Jesús Bhatt DO Ur.Tricyclic Antidepon 08-31 Ur.Tricyclic Antidep Negative Normal NEG [facility] Comment on above: Result Comment: (Positive cutoff 1000 ng/mL) Assay provides rapid clinical screening only. Presumptive positive results for legal purposes should be confirmed by another method. To request confirmation, please call the lab within 7 days of sample submission. Performed By: #### U MARLENE, LATASHA #### [facility] [address] [place] [address] Vegetable Grader: Jesús Bhatt DO C Woundon 08-30-2024 C Wound Normal [facility] Comment on above: Performed By: #### W DC ####[facility] (DEFAULT)[address] [place], [place] [address]QOZNSPE[facility] [place] [address] .Fentanyl Scrn wo Conf,Uron 08-29-2024 Ur Fentanyl Scrn Negative Normal NEG <1.0 [facility] Comment on above: Performed By: #### C D:[id number] ####[facility] [place] [address] Ur Fentanyl Scrn Qnt 0.30 ng/mL Normal <=0.99 [facility] Comment on above: Performed By: #### C D:[id number] ####[place] [place] [address] .eGFRon 08-29-2024 GFR/1.73 sq M.predicted MDRD (S/P/Bld) [Vol rate/Area] mL/min/{1.73_m2} Normal >=60 [facility] Comment on above: Result Comment: [facility] have implemented the eGFR calculation approach that does not have a coefficient for race and that conforms to the NKF-ASN Task Force Recommendations.Stages of Chronic Kidney Disease GFRStage 3a Mild to moderate loss of kidney function 59 to 45Stage 3b Moderate to severe loss of kidney function 44 to 33Stage 4 Severe loss of kidney function 29 to 15Stage 5 Kidney failure Less than 15GFR calculated using the CKD-Epi Creatinine Equation (2020):eGFR = 142 X min(SCr/?, 1)? X max(SCr /?, 1)-1.200 X 0.9938Age X 1.012 [if female]Abbreviations/Units:eGFR (estimated glomerular filtration rate) = mL/min/1.73 m2SCr (standardized serum creatinine) = mg/dL? = 0.7 (females) or 0.9 (males)? = -0.241 (females) or -0.302 (males)min = indicates the minimum of SCr/? or 1max = indicates the maximum of SCr/? or 1Age = years Performed By: #### E GFR ####[facility] [place] [address] CMPon 08-29-2024 Albumin [Mass/Vol] 4.2 g/dL Normal 3.2-4.9 [facility] Comment on above: Performed By: #### C OMP ####[address] [address] Albumin/Globulin [Mass ratio] 1.4 {ratio} Normal 1.1-2.2 [facility] Comment on above: Performed By: #### C OMP ####[address] [address] Alk Phos 44 IU/L Normal 32-91 [facility] Comment on above: Performed By: #### C OMP ####[address] [address] ALT [Catalytic activity/Vol] 32 U/L Normal 17-63 [facility] Comment on above: Performed By: #### C OMP ####[address] [address] Anion gap [Moles/Vol] 9 mmol/L Normal 4-12 [facility] Comment on above: Performed By: #### C OMP ####[address] [address] AST [Catalytic activity/Vol] 31 U/L Normal 15-41 [facility] Comment on above: Performed By: #### C OMP ####[address] [address] Bili Total 1.3 mg/dL High 0.3-1.2 [facility] Comment on above: Performed By: #### C OMP ####[address] [address] Calcium [Mass/Vol] 9.1 mg/dL Normal 8.5-10.3 [facility] Comment on above: Performed By: #### C OMP ####[address] [address] Chloride [Moles/Vol] 102 mmol/L Normal 98-110 [facility] Comment on above: Performed By: #### C OMP ####[address] [address] CO2 [Moles/Vol] 24 mmol/L Normal 22-32 [facility] Comment on above: Performed By: #### C OMP ####[address] [address] Creatinine [Mass/Vol] 1.07 mg/dL Normal 0.61-1.24 [facility] Comment on above: Performed By: #### C OMP ####[address] [address] Glucose [Mass/Vol] 89 mg/dL Normal 70-99 [facility] Comment on above: Performed By: #### C OMP ####[address] [address] Potassium [Moles/Vol] 4.2 mmol/L Normal 3.4-4.8 [facility] Comment on above: Performed By: #### C OMP ####[address] [address] Protein [Mass/Vol] 7.3 g/dL Normal 6.5-8.1 [facility] Comment on above: Performed By: #### C OMP ####[address] [address] Sodium [Moles/Vol] 135 mmol/L Normal 133-142 [facility] Comment on above: Performed By: #### C OMP ####[address] [address] Urea nitrogen [Mass/Vol] 17 mg/dL Normal 8-26 [facility] Comment on above: Performed By: #### C OMP ####[address] [address] Urea nitrogen/Creatinine [Mass ratio] 15.9 mg/mg Normal 10.0-20.0 [facility] Comment on above: Performed By: #### C OMP ####[address] [address] ED Clinical Summaryon 2023 ED Clinical Summary Normal [facility] ED Note-Nursingon 08-29-2024 ED Note-Nursing Pt verbally abusive to nursing staff, and security .FPD x 4 in with pt Mona Perez Normal [facility] ED Note-Physicianon 08-29-20 ED Note-Physician Normal [facility] Ethanolon 08-29-2024 Ethanol, Plasma <10 Normal <=9 [facility] Comment on above: Result Comment: To c onvert mg/dL to g/dL, divide result by 1,000. Legal limit of intoxication is 80 mg/dL (0.08 g/dL). Performed By: #### A LC ####[place] [address] Inpatient Clinical Summaryon 08-29-2024 Inpatient Clinical Summary Normal [facility] Progress Note-Nurseon 2023 Progress Note-Nurse Normal [facility] UDS Compon 08-29-2024 Creatinine [Mass/Vol] 97.0 mg/dL Normal [facility] Comment on above: Performed By: #### C D:[id number] ####[address] [address] Ur Amph Scrn Negative Normal NEG = <1000 [facility] Comment on above: Performed By: #### C [id number] ####[address] [address] Ur Yenifer Scrn Negative Normal NEG = <200 [facility] Comment on above: Performed By: #### C [id number] ####[address] [address] Ur Benzodia Scrn Positive Abnormal NEG = <200 [facility] Comment on above: Result Comment: This unconfirmed positive screening result is to be used for medical treatment purposes only. Unconfirmed screening results must not be used for non-medical purposes (e.g. employment testing, legal testing). Performed By: #### C D:[id number] ####[address] [address] Ur Cannab Scrn Positive Abnormal NEG = <50 [facility] Comment on above: Result Comment: This unconfirmed positive screening result is to be used for medical treatment purposes only. Unconfirmed screening results must not be used for non-medical purposes (e.g. employment testing, legal testing). Performed By: #### C D:[id number] ####[address] [address] Ur Cocaine Scrn Negative Normal NEG = <300 [facility] Comment on above: Performed By: #### C D:[id number] ####[address] [address] Ur Methadone Scn Negative Normal NEG = <300 [facility] Comment on above: Performed By: #### C [id number] ####[address] [address] Ur Opiate Scrn Negative Normal NEG = <300 [facility] Comment on above: Performed By: #### C [id number] ####[address] [address] Ur Oxy Screen Negative Normal NEG = <100 [facility] Comment on above: Performed By: #### C [id number] ####[address] [address] Ur Oxy Scrn Qnt 0 ng/mL Normal <=99 [facility] Comment on above: Performed By: #### C [id number] ####[address] [address] Ur PCP Scrn Negative Normal NEG = <25 [facility] Comment on above: Performed By: #### C D:[id number] ####[address] [address] UA pH 6.5 Normal 4.5 - 7.8 [facility] Comment on above: Performed By: #### C [id number] ####[address] [address] UA Spec Grav 1.020 Normal 1.003-1.035 [facility] Comment on above: Performed By: #### C D:[id number] ####[address] [address] Hep Func Panelon 08-28-2024 Albumin [Mass/Vol] 3.6 g/dL Normal 3.2-4.9 [facility] Comment on above: Performed By: #### L IVER ####[address] [address] Alk Phos 41 IU/L Normal 32-91 [facility] Comment on above: Performed By: #### L IVER ####[address] [address] ALT [Catalytic activity/Vol] 28 U/L Normal 17-63 [facility] Comment on above: Performed By: #### L IVER ####[address] [address] AST [Catalytic activity/Vol] 20 U/L Normal 15-41 [facility] Comment on above: Performed By: #### L IVER ####[address] [address] Bili Direct 0.1 mg/dL Normal 0.1-0.5 [facility] Comment on above: Performed By: #### L IVER ####[address] [address] Bili Indirect 0.6 mg/dL Normal 0.0-1.0 [facility] Comment on above: Performed By: #### L IVER ####[address] [address] Bili Total 0.7 mg/dL Normal 0.3-1.2 [facility] Comment on above: Performed By: #### L IVER ####[address] [address] Protein [Mass/Vol] 6.5 g/dL Normal 6.5-8.1 [facility] Comment on above: Performed By: #### L IVER ####[place] [address] .Fentanyl Scrn wo Conf,Uron 08-27-2024 Ur Fentanyl Scrn Negative Normal NEG <1.0 [facility] Comment on above: Performed By: #### C D:[id number] ####[place] [address] Ur Fentanyl Scrn Qnt 0.69 ng/mL Normal <=0.99 [facility] Comment on above: Performed By: #### C D:[id number] ####[place] [address] .UA Microscp Aon 08-27-2024 UA Mucus Present Normal Absent [facility] Comment on above: Performed By: #### . Urinalysis Microscopic Auto ####[place] [address] UA RBC Quant 0 /HPF Normal 0-5 [facility] Comment on above: Performed By: #### . Urinalysis Microscopic Auto ####[place] [address] UA Squepi Cells Quant <1 Normal 0-29 [facility] Comment on above: Performed By: #### . Urinalysis Microscopic Auto ####[place] [address] UA WBC Quant 0 /HPF Normal 0-5 [facility] Comment on above: Performed By: #### . Urinalysis Microscopic Auto ####[place] [address] .eGFRon 08-27-2024 GFR/1.73 sq M.predicted MDRD (S/P/Bld) [Vol rate/Area] mL/min/{1.73_m2} Normal >=60 [facility] Comment on above: Result Comment: [facility] have implemented the eGFR calculation approach that does not have a coefficient for race and that conforms to the NKF-ASN Task Force Recommendations.Stages of Chronic Kidney Disease GFRStage 3a Mild to moderate loss of kidney function 59 to 45Stage 3b Moderate to severe loss of kidney function 44 to 33Stage 4 Severe loss of kidney function 29 to 15Stage 5 Kidney failure Less than 15GFR calculated using the CKD-Epi Creatinine Equation (2020):eGFR = 142 X min(SCr/?, 1)? X max(SCr /?, 1)-1.200 X 0.9938Age X 1.012 [if female]Abbreviations/Units:eGFR (estimated glomerular filtration rate) = mL/min/1.73 m2SCr (standardized serum creatinine) = mg/dL? = 0.7 (females) or 0.9 (males)? = -0.241 (females) or -0.302 (males)min = indicates the minimum of SCr/? or 1max = indicates the maximum of SCr/? or 1Age = years Performed By: #### E GFR ####[address] [address] B12/Folate Lvlon 08-27-2024 Cobalamin (Vitamin B12) [Mass/Vol] 413 pg/mL Normal 180-914 [facility] Comment on above: Performed By: #### B 12FO ####[address] [address] Folate Lvl 17.9 ng/mL Normal >=5.9 [facility] Comment on above: Result Comment: A [facility] Technical Consultation has determined that deficient Folate concentrations are considered to be less than 4 ng/mL. Performed By: #### B 12FO ####[address] [address] BNPon 08-27-2024 Natriuretic peptide B (Bld) [Mass/Vol] 12 pg/mL Normal 0-100 [facility] Comment on above: Performed By: #### B AUDIO/VISUAL MANAGER ####[address] [address] CBC w/ Diffon 08-27-2024 Erythrocyte distribution width (RBC) [Ratio] 13.1 % Normal 11.6-14.8 [facility] Comment on above: Performed By: #### C BC ####[address] [address] Hematocrit (Bld) [Volume fraction] 45.3 % Normal 41.0-53.0 [facility] Comment on above: Performed By: #### C BC ####[address] [address] Hemoglobin (Bld) [Mass/Vol] 15.5 g/dL Normal 13.5-17.5 [facility] Comment on above: Performed By: #### C BC ####[address] [address] MCH (RBC) [Entitic mass] 30.1 pg Normal 27.0-35.0 [facility] Comment on above: Performed By: #### C BC ####[address] [address] MCHC 34.3 % Normal 31.0-37.0 [facility] Comment on above: Performed By: #### C BC ####[address] [address] MCV (RBC) [Entitic vol] 87.9 fL Normal 80.0-100.0 [facility] Comment on above: Performed By: #### C BC ####[address] [address] Platelet 271 x10*3/mcL Normal 150-450 [facility] Comment on above: Performed By: #### C BC ####[address] [address] Platelet mean volume (Bld) [Entitic vol] 7.3 fL Normal 6.7-10.6 [facility] Comment on above: Performed By: #### C BC ####[address] [address] RBC 5.15 x10*6/mcL Normal 4.30-5.80 [facility] Comment on above: Performed By: #### C BC ####[address] [address] WBC 7.5 x10*3/mcL Normal 4.5-11.0 [facility] Comment on above: Performed By: #### C BC ####[address] [address] CMPon 08-27-2024 Albumin [Mass/Vol] 4.0 g/dL Normal 3.2-4.9 [facility] Comment on above: Performed By: #### C OMP ####[address] [address] Albumin/Globulin [Mass ratio] 1.5 {ratio} Normal 1.1-2.2 [facility] Comment on above: Performed By: #### C OMP ####[address] [address] Alk Phos 48 IU/L Normal 32-91 [facility] Comment on above: Performed By: #### C OMP ####[address] [address] ALT [Catalytic activity/Vol] 30 U/L Normal 17-63 [facility] Comment on above: Performed By: #### C OMP ####[address] [address] Anion gap [Moles/Vol] 7 mmol/L Normal 4-12 [facility] Comment on above: Performed By: #### C OMP ####[address] [address] AST [Catalytic activity/Vol] 22 U/L Normal 15-41 [facility] Comment on above: Performed By: #### C OMP ####[address] [address] Bili Total 0.6 mg/dL Normal 0.3-1.2 [facility] Comment on above: Performed By: #### C OMP ####[address] [address] Calcium [Mass/Vol] 8.6 mg/dL Normal 8.5-10.3 [facility] Comment on above: Performed By: #### C OMP ####[address] [address] Chloride [Moles/Vol] 103 mmol/L Normal 98-110 [facility] Comment on above: Performed By: #### C OMP ####[address] [address] CO2 [Moles/Vol] 23 mmol/L Normal 22-32 [facility] Comment on above: Performed By: #### C OMP ####[address] [address] Creatinine [Mass/Vol] 0.85 mg/dL Normal 0.61-1.24 [facility] Comment on above: Performed By: #### C OMP ####[address] [address] Glucose [Mass/Vol] 92 mg/dL Normal 70-99 [facility] Comment on above: Performed By: #### C OMP ####[address] [address] Potassium [Moles/Vol] 4.1 mmol/L Normal 3.4-4.8 [facility] Comment on above: Performed By: #### C OMP ####[address] [address] Protein [Mass/Vol] 6.6 g/dL Normal 6.5-8.1 [facility] Comment on above: Performed By: #### C OMP ####[address] [address] Sodium [Moles/Vol] 133 mmol/L Normal 133-142 [facility] Comment on above: Performed By: #### C OMP ####[address] [address] Urea nitrogen [Mass/Vol] 11 mg/dL Normal 8-26 [facility] Comment on above: Performed By: #### C OMP ####[address] [address] Urea nitrogen/Creatinine [Mass ratio] 12.9 mg/mg Normal 10.0-20.0 [facility] Comment on above: Performed By: #### C OMP ####[address] [address] Diff Autoon 08-27-2024 Baso Absolute 0.2 x10*3/mcL Normal 0.0-0.2 [facility] Comment on above: Performed By: #### . Automated Diff ####[address] [address] Basophils/100 WBC (Bld) 3.2 % High 0.0-1.2 [facility] Comment on above: Performed By: #### . Automated Diff ####[address] [address] Eos Absolute 0.4 x10*3/mcL Normal 0.0-0.4 [facility] Comment on above: Performed By: #### . Automated Diff ####[address] [address] Eosinophils/100 WBC (Bld) 5.1 % Normal 0.0-6.1 [facility] Comment on above: Performed By: #### . Automated Diff ####[address] [address] Lymph Absolute 2.9 x10*3/mcL Normal 1.0-4.8 [facility] Comment on above: Performed By: #### . Automated Diff ####[address] [address] Lymphocytes/100 WBC (Bld) 39.0 % Normal 27.2-40.8 [facility] Comment on above: Performed By: #### . Automated Diff ####[address] [address] [place] Absolute 0.6 x10*3/mcL Normal 0.3-1.1 [facility] Comment on above: Performed By: #### . Automated Diff ####[address] [address] Monocytes/100 WBC (Bld) 8.4 % Normal 4.7-13.9 [facility] Comment on above: Performed By: #### . Automated Diff ####[place] [address] Neutro Absolute 3.3 x10*3/mcL Normal 1.8-7.7 [facility] Comment on above: Performed By: #### . Automated Diff ####[place] [address] Neutro Auto 44.3 % Low 47.2-70.8 [facility] Comment on above: Performed By: #### . Automated Diff ####[place] [address] ED Clinical Summaryon 2023 ED Clinical Summary Normal [facility] ED Note-Physicianon 08-27-20 ED Note-Physician Normal [facility] Ethanolon 08-27-2024 Ethanol, Plasma <10 Normal <=9 [facility] Comment on above: Result Comment: To c onvert mg/dL to g/dL, divide result by 1,000. Legal limit of intoxication is 80 mg/dL (0.08 g/dL). Performed By: #### A LC ####[place] [address] Magnesiumon 08-27-2024 Magnesium [Mass/Vol] 2.1 mg/dL Normal 1.7-2.4 [facility] Comment on above: Performed By: #### M G ####[place] [address] Troponin-Ion 08-27-2024 Troponin I.cardiac [Mass/Vol] ng/mL Normal 0.00-0.03 [facility] Comment on above: Result Comment: An i ncreased Troponin-I value, in the absence of myocardial ischemia, may indicate other etiologies of cardiac damage.99th Percentile Cutoff for Negative/Positive:Negative <= 0.03Positive >= 0.04 Performed By: #### T ROP ####[place] [address] UA w Culture if Indon 2023 Color (U) Light-Yellow Normal Yellow [facility] Comment on above: Performed By: #### U CI ####[address] [place] [address] Ketones Ql (U) Negative Normal Negative [facility] Comment on above: Performed By: #### U CI ####[address] [place] [address] UA Blood Negative Normal Negative [facility] Comment on above: Performed By: #### U CI ####[address] [place] [address] UA Clarity Clear Normal Clear [facility] Comment on above: Performed By: #### U CI ####[address] [place] [address] UA Glucose Normal Normal Negative [facility] Comment on above: Performed By: #### U CI ####[address] [place] [address] UA Leukocyte Esterase Negative Normal Negative [facility] Comment on above: Performed By: #### U CI ####[address] [place] [address] UA Nitrite Negative Normal Negative [facility] Comment on above: Performed By: #### U CI ####[address] [place] [address] UA pH 5.0 Normal 4.5 - 7.8 [facility] Comment on above: Performed By: #### U CI ####[address] [place] [address] UA Protein Negative Normal Negative [facility] Comment on above: Performed By: #### U CI ####[address] [place] [address] UA Source Clean Catch Normal [facility] Comment on above: Performed By: #### U CI ####[address] [address] UA Spec Grav 1.015 Normal 1.003-1.035 [facility] Comment on above: Performed By: #### U CI ####[address] [address] UA Urobilinogen Normal Normal 0.2 - 1.0 [facility] Comment on above: Performed By: #### U CI ####[address] [address] Urobilinogen (U) [Mass/Vol] Negative Normal Negative [facility] Comment on above: Performed By: #### U CI ####[address] [address] UDS Compon 08-27-2024 Creatinine [Mass/Vol] 91.1 mg/dL Normal [facility] Comment on above: Performed By: #### C [id number] ####[address] [address] Ur Amph Scrn Negative Normal NEG = <1000 [facility] Comment on above: Performed By: #### C [id number] ####[address] [address] Ur Yenifer Scrn Negative Normal NEG = <200 [facility] Comment on above: Performed By: #### C [id number] ####[address] [address] Ur Benzodia Scrn Negative Normal NEG = <200 [facility] Comment on above: Performed By: #### C [id number] ####[address] [address] Ur Cannab Scrn Positive Abnormal NEG = <50 [facility] Comment on above: Result Comment: This unconfirmed positive screening result is to be used for medical treatment purposes only. Unconfirmed screening results must not be used for non-medical purposes (e.g. employment testing, legal testing). Performed By: #### C [id number] ####[address] [address] Ur Cocaine Scrn Negative Normal NEG = <300 [facility] Comment on above: Performed By: #### C [id number] ####[address] [address] Ur Methadone Scn Negative Normal NEG = <300 [facility] Comment on above: Performed By: #### C [id number] ####[address] [address] Ur Opiate Scrn Negative Normal NEG = <300 [facility] Comment on above: Performed By: #### C [id number] ####[address] [address] Ur Oxy Screen Negative Normal NEG = <100 [facility] Comment on above: Performed By: #### C [id number] ####[address] [address] Ur Oxy Scrn Qnt 8 ng/mL Normal <=99 [facility] Comment on above: Performed By: #### C [id number] ####[address] [address] Ur PCP Scrn Negative Normal NEG = <25 [facility] Comment on above: Performed By: #### C [id number] ####[address] [address] UA pH 5.0 Normal 4.5 - 7.8 [facility] Comment on above: Performed By: #### C [id number] ####[place] [address] UA Spec Grav 1.015 Normal 1.003-1.035 [facility] Comment on above: Performed By: #### C [id number] ####[address] [address] CBC with Diffon 08-15-2024 Abs. Basophil 0.12 k/uL Normal 0.00-0.20 [facility] Comment on above: Performed By: #### C DP, LIP, TROPI, DIME, CP #### [facility] [employer] [address] [place] [address] Vegetable Grader: Kael Tran MD Abs.Imm.Granulocyte 0.03 k/uL Normal 0.00-0.30 [facility] Comment on above: Performed By: #### C DP, LIP, TROPI, DIME, CP #### [place] [address] Vegetable Grader: Kael Tran MD Abs.Neutrophil (Seg) 4.48 k/uL Normal 1.50-8.10 [facility] Comment on above: Performed By: #### C DP, LIP, TROPI, DIME, CP #### [place] [address] Vegetable Grader: Kael Tran MD Basophils/100 WBC (Bld) 1 % Normal 0-2 [facility] Comment on above: Performed By: #### C DP, LIP, TROPI, DIME, CP #### [place] [address] Vegetable Grader: Kael Tran MD Eosinophils (Bld) [#/Vol] 0.66 10*3/uL High 0.00-0.44 [facility] Comment on above: Performed By: #### C DP, LIP, TROPI, DIME, CP #### [place] [address] Vegetable Grader: Kael Tran MD Eosinophils/100 WBC (Bld) 8 % High 1-4 [facility] Comment on above: Performed By: #### C DP, LIP, TROPI, DIME, CP #### [place] [address] Vegetable Grader: Kael Tran MD Erythrocyte distribution width (RBC) [Ratio] 12.3 % Normal 11.8-14.4 [facility] Comment on above: Performed By: #### C DP, LIP, TROPI, DIME, CP #### [address] [address] Vegetable Grader: Kael Tran MD Hematocrit (Bld) [Volume fraction] 51.9 % High 40.7-50.3 [facility] Comment on above: Performed By: #### C DP, LIP, TROPI, DIME, CP #### [address] [address] Vegetable Grader: Kael Tran MD Hemoglobin (Bld) [Mass/Vol] 18.2 g/dL High 13.0-17.0 [facility] Comment on above: Performed By: #### C DP, LIP, TROPI, DIME, CP #### [address] [address] Vegetable Grader: Kael Tran MD Immature granulocytes/100 WBC (Bld) 0 % Normal 0 [facility] Comment on above: Performed By: #### C DP, LIP, TROPI, DIME, CP #### [place] [address] Vegetable Grader: Kael Tran MD Lymphocytes (Bld) [#/Vol] 2.52 10*3/uL Normal 1.10-3.70 [facility] Comment on above: Performed By: #### C DP, LIP, TROPI, DIME, CP #### [address] [address] Vegetable Grader: Kael Tran MD Lymphocytes/100 WBC (Bld) 29 % Normal 24-43 [facility] Comment on above: Performed By: #### C DP, LIP, TROPI, DIME, CP #### [address] [address] Vegetable Grader: Kael Tran MD MCH (RBC) [Entitic mass] 30.1 pg Normal 25.2-33.5 [facility] Comment on above: Performed By: #### C DP, LIP, TROPI, DIME, CP #### [address] [address] Vegetable Grader: Kael Tran MD MCHC (RBC) [Mass/Vol] 35.1 g/dL High 28.4-34.8 [facility] Comment on above: Performed By: #### C DP, LIP, TROPI, DIME, CP #### [address] [address] Vegetable Grader: Kael Tran MD MCV (RBC) [Entitic vol] 85.9 fL Normal 82.6-102.9 [facility] Comment on above: Performed By: #### C DP, LIP, TROPI, DIME, CP #### [address] [address] Vegetable Grader: Kael Tran MD Monocytes (Bld) [#/Vol] 0.86 10*3/uL Normal 0.10-1.20 [facility] Comment on above: Performed By: #### C DP, LIP, TROPI, DIME, CP #### [address] [address] Vegetable Grader: Kael Tran MD Monocytes/100 WBC (Bld) 10 % Normal 3-12 [facility] Comment on above: Performed By: #### C DP, LIP, TROPI, DIME, CP #### [address] [address] Vegetable Grader: Kael Tran MD Neutrophil (Seg) 52 % Normal 36-65 [facility] Comment on above: Performed By: #### C DP, LIP, TROPI, DIME, CP #### [address] [address] Vegetable Grader: Kael Tran MD NRBC Automated 0.0 per 100 WBC Normal 0.0 [facility] Comment on above: Performed By: #### C DP, LIP, TROPI, DIME, CP #### [address] [address] Vegetable Grader: Kael Tran MD Platelet mean volume (Bld) [Entitic vol] 9.5 fL Normal 8.1-13.5 [facility] Comment on above: Performed By: #### C DP, LIP, TROPI, DIME, CP #### [address] [address] Vegetable Grader: Kael Tran MD Platelets (Bld) [#/Vol] 307 10*3/uL Normal 138-453 [facility] Comment on above: Performed By: #### C DP, LIP, TROPI, DIME, CP #### [address] [address] Vegetable Grader: Kael Tran MD RBC (Bld) [#/Vol] 6.04 10*6/uL High 4.21-5.77 [facility] Comment on above: Performed By: #### C DP, LIP, TROPI, DIME, CP #### [address] [address] Vegetable Grader: Kael Tran MD WBC (Bld) [#/Vol] 8.7 10*3/uL Normal 3.5-11.3 [facility] Comment on above: Performed By: #### C DP, LIP, TROPI, DIME, CP #### [address] [address] Vegetable Grader: Kael Tran MD Comp Metabolic Profon 2023 Albumin [Mass/Vol] 4.6 g/dL Normal 3.5-5.2 [facility] Comment on above: Performed By: #### C DP, LIP, TROPI, DIME, CP #### [address] [address] Vegetable Grader: Kael Tran MD Albumin/Glob Ratio 2.0 Normal 1.0-2.5 [facility] Comment on above: Performed By: #### C DP, LIP, TROPI, DIME, CP #### [address] [address] Vegetable Grader: Kael Tran MD Alkaline Phos 65 U/L Normal 40-129 [facility] Comment on above: Performed By: #### C DP, LIP, TROPI, DIME, CP #### [address] [address] Vegetable Grader: Kael Tran MD ALT [Catalytic activity/Vol] 36 U/L Normal 10-50 [facility] Comment on above: Performed By: #### C DP, LIP, TROPI, DIME, CP #### [address] [address] Vegetable Grader: Kael Tran MD Anion gap [Moles/Vol] 15 mmol/L Normal 9-16 [facility] Comment on above: Performed By: #### C DP, LIP, TROPI, DIME, CP #### [address] [address] Vegetable Grader: Kael Tran MD AST [Catalytic activity/Vol] 32 U/L Normal 10-50 [facility] Comment on above: Performed By: #### C DP, LIP, TROPI, DIME, CP #### [address] [address] Vegetable Grader: Kael Tran MD Bilirubin [Mass/Vol] 1.4 mg/dL High 0.00-1.20 [facility] Comment on above: Performed By: #### C DP, LIP, TROPI, DIME, CP #### [address] [address] Vegetable Grader: Kael Tran MD Calcium [Mass/Vol] 10.0 mg/dL Normal 8.6-10.4 [facility] Comment on above: Performed By: #### C DP, LIP, TROPI, DIME, CP #### [address] [address] Vegetable Grader: Kael Tran MD Chloride [Moles/Vol] 102 mmol/L Normal 98-107 [facility] Comment on above: Performed By: #### C DP, LIP, TROPI, DIME, CP #### [address] [address] Vegetable Grader: Kael Tran MD CO2 [Moles/Vol] 20 mmol/L Normal 20-31 [facility] Comment on above: Performed By: #### C DP, LIP, TROPI, DIME, CP #### [address] [address] Vegetable Grader: Kael Tran MD Creatinine [Mass/Vol] 1.1 mg/dL Normal 0.70-1.20 [facility] Comment on above: Performed By: #### C DP, LIP, TROPI, DIME, CP #### [address] [address] Vegetable Grader: Kael Tran MD GFR/1.73 sq M.predicted among non-blacks MDRD (S/P/Bld) [Vol rate/Area] mL/min/{1.73_m2} Normal >60 [facility] Comment on above: Result Comment: These results are not intended for use in patients <18 years of age. eGFR results are calculated without a race factor using the 2020 CKD-EPI equation. Careful clinical correlation is recommended, particularly when comparing to results calculated using previous equations. The CKD-EPI equation is less accurate in patients with extremes of muscle mass, extra-renal metabolism of creatine, excessive creatine ingestion, or following therapy that affects renal tubular secretion. Performed By: #### C DP, LIP, TROPI, DIME, CP #### [address] [address] Vegetable Grader: Kael Tran MD Glucose [Mass/Vol] 97 mg/dL Normal 74-99 [facility] Comment on above: Performed By: #### C DP, LIP, TROPI, DIME, CP #### [address] [address] Vegetable Grader: Kael Tran MD Potassium [Moles/Vol] 4.0 mmol/L Normal 3.7-5.3 [facility] Comment on above: Performed By: #### C DP, LIP, TROPI, DIME, CP #### [address] [address] Vegetable Grader: Kael Tran MD Protein [Mass/Vol] 7.6 g/dL Normal 6.6-8.7 [facility] Comment on above: Performed By: #### C DP, LIP, TROPI, DIME, CP #### [address] [address] Vegetable Grader: Kael Tran MD Sodium [Moles/Vol] 137 mmol/L Normal 136-145 [facility] Comment on above: Performed By: #### C DP, LIP, TROPI, DIME, CP #### [address] [address] Vegetable Grader: Kael Tran MD Urea nitrogen [Mass/Vol] 12 mg/dL Normal 6-20 [facility] Comment on above: Performed By: #### C DP, LIP, TROPI, DIME, CP #### [facility] [employer] [address] [place] [address] Vegetable Grader: Kael Tran MD D-Dimer Teston 08-15-2024 D-Dimer Test <0.27 Normal 0.00-0.57 [facility] Comment on above: Result Comment: When combined with a low clinical probability, a D dimer value of <0.50 ug/mL FEU is considered negative for DVT and PE (negative predictive value of 98%, sensitivity of 97%). If this test is not being used to help rule out DVT and PE, then the following reference range should be utilized: 0.00 - 0.57 ug/mL FEU. The D-Dimer assay is intended for use as an aid in the diagnosis of venous thromboembolism (DVT and PE) and the results should be interpreted in conjunction with the patient's medical history, clinical presentation, and other findings. Elevated levels of D-dimer activity can be seen in any state of coagulation activation and is not recommended in patients with therapeutic dose anticoagulant therapy for >24 hours, fibrinolytic therapy within the previous 7 days, trauma or surgery within the previous 4 weeks, disseminated malignancies, aortic aneurysm, sepsis, severe infections, pneumonia, severe skin infections, liver cirrhosis, advanced age, coronary disease, diabetes, and . A very low percentage of patients with DVT may yield D-dimer results below the cutoff of 0.5 ug/mL FEU. This is known to be more prevalent in patients with distal DVT. Performed By: #### C DP, LIP, TROPI, DIME, CP #### [employer] [address] [place] [address] Vegetable Grader: Kael Tran MD Lipaseon 08-15-2024 Lipase [Catalytic activity/Vol] 31 U/L Normal 13-60 [facility] Comment on above: Performed By: #### C DP, LIP, TROPI, DIME, CP #### [employer] [facility] [place] [address] Vegetable Grader: Kael Tran MD Troponinon 08-15-2024 Troponin, High Sens 9 ng/L Normal 0-22 [facility] Comment on above: Result Comment: High Sensitivity Troponin values cannot be compared with other Troponin methodologies. Performed By: #### T ROPI #### [employer] [address] [place] [address] Vegetable Grader: Kael Tran MD Troponin, High Sens 9 ng/L Normal 0-22 [facility] Comment on above: Result Comment: High Sensitivity Troponin values cannot be compared with other Troponin methodologies. Performed By: #### C DP, PAM, SCOTT JACOBSEN, CP #### [facility] [employer] [address] [place] [address] Vegetable Grader: Kael Tran MD XR CHEST (2 VW)on 08-15-2024 XR CHEST (2 VW) EXAMINATION: TWO XRAY VIEWS OF THE CHEST 08/15/2024 6:01 pm COMPARISON: 09/28/2023. HISTORY: ORDERING SYSTEM PROVIDED HISTORY: Shortness of breath TECHNOLOGIST PROVIDED HISTORY: Shortness of breath Reason for Exam: fatigue,sob,rash FINDINGS: The heart size is within normal limits. The pulmonary vasculature is also within normal limits. No acute infiltrates are seen. No pneumothoraces are noted. IMPRESSION: No acute cardiopulmonary process. Interpreted by: Cristino Velasquez MD Signed by: Cristino Velasquez MD 08/15/24 Final result Normal [facility] CBC with Diffon 07-20-2024 Abs. Basophil 0.11 k/uL Normal 0.00-0.20 [facility] Comment on above: Performed By: #### E DTOX, MG, CP, CDP #### [facility] [employer] [address] [place] [address] Vegetable Grader: Kael Tran MD Abs.Imm.Granulocyte <0.03 Normal 0.00-0.30 [facility] Comment on above: Performed By: #### E DTOX, MG, CP, CDP #### [facility] [employer] [address] [place] [address] Vegetable Grader: Kael Tran MD Abs.Neutrophil (Seg) 4.15 k/uL Normal 1.50-8.10 [facility] Comment on above: Performed By: #### E DTOX, MG, CP, CDP #### [facility] [employer] [address] [place] [address] Vegetable Grader: Kael Tran MD Basophils/100 WBC (Bld) 1 % Normal 0-2 [facility] Comment on above: Performed By: #### E DTOX, MG, CP, CDP #### [address] [address] Vegetable Grader: Kael Tran MD Eosinophils (Bld) [#/Vol] 0.34 10*3/uL Normal 0.00-0.44 [facility] Comment on above: Performed By: #### E DTOX, MG, CP, CDP #### [address] [address] Vegetable Grader: Kael Tran MD Eosinophils/100 WBC (Bld) 4 % Normal 1-4 [facility] Comment on above: Performed By: #### E DTOX, MG, CP, CDP #### [address] [address] Vegetable Grader: Kael Tran MD Erythrocyte distribution width (RBC) [Ratio] 12.6 % Normal 11.8-14.4 [facility] Comment on above: Performed By: #### E DTOX, MG, CP, CDP #### [facility] [employer] [address] [place] [address] Vegetable Grader: Kael Tran MD Hematocrit (Bld) [Volume fraction] 45.0 % Normal 40.7-50.3 [facility] Comment on above: Performed By: #### E DTOX, MG, CP, CDP #### [facility] [employer] [address] [place] [address] Vegetable Grader: Kael Tran MD Hemoglobin (Bld) [Mass/Vol] 15.8 g/dL Normal 13.0-17.0 [facility] Comment on above: Performed By: #### E DTOX, MG, CP, CDP #### [facility] [employer] [address] [place] [phone] Vegetable Grader: Kael Tran MD Immature granulocytes/100 WBC (Bld) 0 % Normal 0 [facility] Comment on above: Performed By: #### E DTOX, MG, CP, CDP #### [address] [address] Vegetable Grader: Kael Tran MD Lymphocytes (Bld) [#/Vol] 3.25 10*3/uL Normal 1.10-3.70 [facility] Comment on above: Performed By: #### E DTOX, MG, CP, CDP #### [address] [address] Vegetable Grader: Kael Tran MD Lymphocytes/100 WBC (Bld) 38 % Normal 24-43 [facility] Comment on above: Performed By: #### E DTOX, MG, CP, CDP #### [place] [address] Vegetable Grader: Kael Tran MD MCH (RBC) [Entitic mass] 30.7 pg Normal 25.2-33.5 [facility] Comment on above: Performed By: #### E DTOX, MG, CP, CDP #### [facility] [employer] [address] [place] [address] Vegetable Grader: Kael Tran MD MCHC (RBC) [Mass/Vol] 35.1 g/dL High 28.4-34.8 [facility] Comment on above: Performed By: #### E DTOX, MG, CP, CDP #### [facility] [employer] [address] [place] [address] Vegetable Grader: Kael Tran MD MCV (RBC) [Entitic vol] 87.4 fL Normal 82.6-102.9 [facility] Comment on above: Performed By: #### E DTOX, MG, CP, CDP #### [facility] [employer] [address] [place] [address] Vegetable Grader: Kael Tran MD Monocytes (Bld) [#/Vol] 0.77 10*3/uL Normal 0.10-1.20 [facility] Comment on above: Performed By: #### E DTOX, MG, CP, CDP #### [address] [address] Vegetable Grader: Kael Tran MD Monocytes/100 WBC (Bld) 9 % Normal 3-12 [facility] Comment on above: Performed By: #### E DTOX, MG, CP, CDP #### [address] [address] Vegetable Grader: Kael Tran MD Neutrophil (Seg) 48 % Normal 36-65 [facility] Comment on above: Performed By: #### E DTOX, MG, CP, CDP #### [address] [address] Vegetable Grader: Kael Tran MD NRBC Automated 0.0 per 100 WBC Normal 0.0 [facility] Comment on above: Performed By: #### E DTOX, MG, CP, CDP #### [address] [address] Vegetable Grader: Kael Tran MD Platelet mean volume (Bld) [Entitic vol] 9.5 fL Normal 8.1-13.5 [facility] Comment on above: Performed By: #### E DTOX, MG, CP, CDP #### [address] [address] Vegetable Grader: Kael Tran MD Platelets (Bld) [#/Vol] 216 10*3/uL Normal 138-453 [facility] Comment on above: Performed By: #### E DTOX, MG, CP, CDP #### [address] [address] Vegetable Grader: Kael Tran MD RBC (Bld) [#/Vol] 5.15 10*6/uL Normal 4.21-5.77 [facility] Comment on above: Performed By: #### E DTOX, MG, CP, CDP #### [facility] [employer] [address] [place] [address] Vegetable Grader: Kael Tran MD WBC (Bld) [#/Vol] 8.6 10*3/uL Normal 3.5-11.3 [facility] Comment on above: Performed By: #### E DTOX, MG, CP, CDP #### [facility] [employer] [address] [place] [address] Vegetable Grader: Kael Tran MD Comp Metabolic Profon 2023 Albumin [Mass/Vol] 4.2 g/dL Normal 3.5-5.2 [facility] Comment on above: Performed By: #### E DTOX, MG, CP, CDP #### [facility] [employer] [address] [place] [address] Vegetable Grader: Kael Tran MD Albumin/Glob Ratio 2.0 Normal 1.0-2.5 [facility] Comment on above: Performed By: #### E DTOX, MG, CP, CDP #### [facility] [employer] [address] [place] [address] Vegetable Grader: Kael Tran MD Alkaline Phos 56 U/L Normal 40-129 [facility] Comment on above: Performed By: #### E DTOX, MG, CP, CDP #### [facility] [employer] [address] [place] [address] Vegetable Grader: Kael Tran MD ALT [Catalytic activity/Vol] 30 U/L Normal 10-50 [facility] Comment on above: Performed By: #### E DTOX, MG, CP, CDP #### [facility] [employer] [address] [place] [address] Vegetable Grader: Kael Tran MD Anion gap [Moles/Vol] 14 mmol/L Normal 9-16 [facility] Comment on above: Performed By: #### E DTOX, MG, CP, CDP #### [facility] [employer] [address] [place] [address] Vegetable Grader: Kael Tran MD AST [Catalytic activity/Vol] 33 U/L Normal 10-50 [facility] Comment on above: Result Comment: SPEC IMEN SLIGHTLY HEMOLYZED, RESULTS MAY BE ADVERSELY AFFECTED. Performed By: #### E DTOX, MG, CP, CDP #### [facility] [employer] [address] [place] [address] Vegetable Grader: Kael Tran MD Bilirubin [Mass/Vol] 0.4 mg/dL Normal 0.00-1.20 [facility] Comment on above: Performed By: #### E DTOX, MG, CP, CDP #### [facility] [employer] [address] [place] [address] Vegetable Grader: Kael Tran MD Calcium [Mass/Vol] 8.7 mg/dL Normal 8.6-10.4 [facility] Comment on above: Performed By: #### E DTOX, MG, CP, CDP #### [facility] [employer] [address] [place] [address] Vegetable Grader: Kael Tran MD Chloride [Moles/Vol] 105 mmol/L Normal 98-107 [facility] Comment on above: Performed By: #### E DTOX, MG, CP, CDP #### [facility] [employer] [address] [place] [address] Vegetable Grader: Kael Tran MD CO2 [Moles/Vol] 21 mmol/L Normal 20-31 [facility] Comment on above: Performed By: #### E DTOX, MG, CP, CDP #### [facility] [employer] [address] [place] [address] Vegetable Grader: Kael Tran MD Creatinine [Mass/Vol] 0.9 mg/dL Normal 0.70-1.20 [facility] Comment on above: Performed By: #### E DTOX, MG, CP, CDP #### [address] [address] Vegetable Grader: Kael Tran MD GFR/1.73 sq M.predicted among non-blacks MDRD (S/P/Bld) [Vol rate/Area] mL/min/{1.73_m2} Normal >60 [facility] Comment on above: Result Comment: These results are not intended for use in patients <18 years of age. eGFR results are calculated without a race factor using the 2020 CKD-EPI equation. Careful clinical correlation is recommended, particularly when comparing to results calculated using previous equations. The CKD-EPI equation is less accurate in patients with extremes of muscle mass, extra-renal metabolism of creatine, excessive creatine ingestion, or following therapy that affects renal tubular secretion. Performed By: #### E DTOX, MG, CP, CDP #### [facility] [employer] [address] [place] [phone] Vegetable Grader: Kael Tran MD Glucose [Mass/Vol] 89 mg/dL Normal 74-99 [facility] Comment on above: Performed By: #### E DTOX, MG, CP, CDP #### [facility] [employer] [address] [place] [address] Vegetable Grader: Kael Tran MD Potassium [Moles/Vol] 3.7 mmol/L Normal 3.7-5.3 [facility] Comment on above: Result Comment: SPEC IMEN SLIGHTLY HEMOLYZED, RESULTS MAY BE ADVERSELY AFFECTED. Performed By: #### E DTOX, MG, CP, CDP #### [facility] [address] [place] [address] Vegetable Grader: Kael Tran MD Protein [Mass/Vol] 6.4 g/dL Low 6.6-8.7 [facility] Comment on above: Performed By: #### E DTOX, MG, CP, CDP #### [facility] [address] [place] [address] Vegetable Grader: Kael Tran MD Sodium [Moles/Vol] 140 mmol/L Normal 136-145 [facility] Comment on above: Performed By: #### E DTOX, MG, CP, CDP #### [facility] [address] [place] [address] Vegetable Grader: Kael Tran MD Urea nitrogen [Mass/Vol] 12 mg/dL Normal 6-20 [facility] Comment on above: Performed By: #### E DTOX, MG, CP, CDP #### [facility] [address] [place] [address] Vegetable Grader: Kael Tran MD Drug Scr, Abuse, Uron 2023 Benzodiazepine(s) Positive Abnormal NEG [facility] Comment on above: Result Comment: Cuto ff: 200 ng/ml Performed By: #### E DTOX, MG, CP, CDP #### [facility] [employer] [address] [place] [address] Vegetable Grader: Kael Tran MD Cannabinoid(s),Ur Positive Abnormal NEG [facility] Comment on above: Result Comment: Cuto ff: 50 ng/ml Performed By: #### E DTOX, MG, CP, CDP #### [facility] [employer] [address] [place] [address] Vegetable Grader: Kael Tran MD Interpretive Info Assay provides rapid clinical screening only. Presumptive positive results for Normal [facility] Comment on above: Result Comment: lega l purposes should be confirmed by another method. To request confirmation, please call the lab within 7 days of sample submission. Performed By: #### E DTOX, MG, CP, CDP #### [facility] [address] [place] [address] Vegetable Grader: Kael Tran MD Amphetamine(s),Ur Negative Normal NEG [facility] Comment on above: Result Comment: Cuto ff: 1000 ng/mL Performed By: #### E DTOX, MG, CP, CDP #### [facility] [employer] [address] [place] [address] Vegetable Grader: Kael Tran MD Barbiturate(s),Ur Negative Normal NEG [facility] Comment on above: Result Comment: Cuto ff: 200 ng/ml Performed By: #### E DTOX, MG, CP, CDP #### [facility] [address] [place] [address] Vegetable Grader: Kael Tran MD Cocaine Metabolite Negative Normal NEG [facility] Comment on above: Result Comment: Cuto ff: 300 ng/ml Performed By: #### E DTOX, MG, CP, CDP #### [facility] [address] [place] [address] Vegetable Grader: Kael Tran MD Fentanyl, Urine Negative Normal NEG [facility] Comment on above: Result Comment: Cuto ff: 5 ng/ml Performed By: #### E DTOX, MG, CP, CDP #### [employer] [address] [place] [address] Vegetable Grader: Kael Tran MD Methadone Ql (U) Negative Normal NEG [facility] Comment on above: Result Comment: Cuto ff: 300 ng/ml Performed By: #### E DTOX, MG, CP, CDP #### [facility] [employer] [address] [place] [address] Vegetable Grader: Kael Tran MD Opiate(s), Ur Negative Normal NEG [facility] Comment on above: Result Comment: Cuto ff: 300 ng/ml Performed By: #### E DTOX, MG, CP, CDP #### [facility] [employer] [address] [place] [address] Vegetable Grader: Kael Tran MD Oxycodone, Urine Negative Normal NEG [facility] Comment on above: Result Comment: Cuto ff: 100 ng/ml Performed By: #### E DTOX, MG, CP, CDP #### [facility] [employer] [address] [place] [address] Vegetable Grader: Kael Tran MD Phencyclidine, Ur Negative Normal NEG [facility] Comment on above: Result Comment: Cuto ff: 25 ng/ml Performed By: #### E DTOX, MG, CP, CDP #### [facility] [employer] [address] [place] [address] Vegetable Grader: Kael Tran MD Magnesiumon Magnesium [Mass/Vol] 2.2 mg/dL Normal 1.6-2.6 [facility] Comment on above: Performed By: #### E DTOX, MG, CP, CDP #### [facility] [employer] [address] [place] [address] Vegetable Grader: Kael Tran MD Tox Scr, Bld, EDon 4 Acetaminophen [Mass/Vol] ug/mL Low 10-30 [facility] Comment on above: Performed By: #### E DTOX, MG, CP, CDP #### [address] [address] Vegetable Grader: Kael Tran MD Ethanol [Mass/Vol] 98 mg/dL High <10 [facility] Comment on above: Performed By: #### E DTOX, MG, CP, CDP #### [facility] [employer] [address] [place] [address] Vegetable Grader: Kael Tran MD Ethanol percent 0.098 % High <0.010 [facility] Comment on above: Performed By: #### E DTOX, MG, CP, CDP #### [facility] [employer] [address] [place] [address] Vegetable Grader: Kael Tran MD Salicylate <0.5 Normal 0.0-10.0 [facility] Comment on above: Performed By: #### E DTOX, MG, CP, CDP #### [address] [address] Vegetable Grader: Kael Tran MD UA w/Reflex Cultureon 2023 Bilirubin, SemiQt,Ur Negative Normal NEG [facility] Comment on above: Performed By: #### E DTOX, MG, CP, CDP #### [address] [address] Vegetable Grader: Kael Tran MD Blood, Urine Negative Normal NEG [facility] Comment on above: Performed By: #### E DTOX, MG, CP, CDP #### [address] [address] Vegetable Grader: Kael Tran MD Clarity (U) Clear Normal CLEAR [facility] Comment on above: Performed By: #### E DTOX, MG, CP, CDP #### [address] [address] Vegetable Grader: Kael Tran MD Color (U) Yellow Normal YEL [facility] Comment on above: Performed By: #### E DTOX, MG, CP, CDP #### [address] [address] Vegetable Grader: Kael Tran MD Comment Microscopic exam not performed based on chemical results unless requested in Normal [facility] Comment on above: Result Comment: orig inal order. Performed By: #### E DTOX, MG, CP, CDP #### [address] [address] Vegetable Grader: Kael Tran MD Glucose Ql (U) Negative Normal NEG [facility] Comment on above: Performed By: #### E DTOX, MG, CP, CDP #### [address] [address] Vegetable Grader: Kael Tran MD Ketones Ql (U) Negative Normal NEG [facility] Comment on above: Performed By: #### E DTOX, MG, CP, CDP #### [address] [address] Vegetable Grader: Kael Tran MD Leukocyte esterase Test strip Ql (U) Negative Normal NEG [facility] Comment on above: Performed By: #### E DTOX, MG, CP, CDP #### [address] [address] Vegetable Grader: Kael Tran MD Nitrite,Ur Negative Normal NEG [facility] Comment on above: Performed By: #### E DTOX, MG, CP, CDP #### [address] [address] Vegetable Grader: Kael Tran MD PH,Ur 5.5 Normal 5.0-8.0 [facility] Comment on above: Performed By: #### E DTOX, MG, CP, CDP #### [facility] [employer] [address] [place] [address] Vegetable Grader: Kael Tran MD Protein Ql (U) Negative Normal NEG [facility] Comment on above: Performed By: #### E DTOX, MG, CP, CDP #### [facility] [employer] [address] [place] [address] Vegetable Grader: Kael Tran MD Spec. [place],Ur 1.014 Normal 1.005-1.030 [facility] Comment on above: Performed By: #### E DTOX, MG, CP, CDP #### [facility] [employer] [address] [place] [address] Vegetable Grader: Kael Tran MD Urobilinogen,Ur Normal Normal 0.0-1.0 [facility] Comment on above: Performed By: #### E DTOX, MG, CP, CDP #### [place] [address] Vegetable Grader: Kael Tran MD CBC with Diffon 07-04-2024 Abs. Basophil 0.11 k/uL Normal 0.00-0.20 [facility] Comment on above: Performed By: #### E DTOX, MG, CP, CDP #### [place] [address] Vegetable Grader: Kael Tran MD Abs.Imm.Granulocyte <0.03 Normal 0.00-0.30 [facility] Comment on above: Performed By: #### E DTOX, MG, CP, CDP #### [place] [address] Vegetable Grader: Kael Tran MD Abs.Neutrophil (Seg) 4.73 k/uL Normal 1.50-8.10 [facility] Comment on above: Performed By: #### E DTOX, MG, CP, CDP #### [place] [address] Vegetable Grader: Kael Tran MD Basophils/100 WBC (Bld) 1 % Normal 0-2 [facility] Comment on above: Performed By: #### E DTOX, MG, CP, CDP #### [place] [address] Vegetable Grader: Kael Tran MD Eosinophils (Bld) [#/Vol] 0.21 10*3/uL Normal 0.00-0.44 [facility] Comment on above: Performed By: #### E DTOX, MG, CP, CDP #### [place] [address] Vegetable Grader: Kael Tran MD Eosinophils/100 WBC (Bld) 3 % Normal 1-4 [facility] Comment on above: Performed By: #### E DTOX, MG, CP, CDP #### [facility] [employer] [address] [place] [address] Vegetable Grader: Kael Tran MD Erythrocyte distribution width (RBC) [Ratio] 12.5 % Normal 11.8-14.4 [facility] Comment on above: Performed By: #### E DTOX, MG, CP, CDP #### [facility] [employer] [address] [place] [address] Vegetable Grader: Kael Tran MD Hematocrit (Bld) [Volume fraction] 47.9 % Normal 40.7-50.3 [facility] Comment on above: Performed By: #### E DTOX, MG, CP, CDP #### [place] [address] Vegetable Grader: Kael Tran MD Hemoglobin (Bld) [Mass/Vol] 16.1 g/dL Normal 13.0-17.0 [facility] Comment on above: Performed By: #### E DTOX, MG, CP, CDP #### [facility] [employer] [address] [place] [address] Vegetable Grader: Kael Tran MD Immature granulocytes/100 WBC (Bld) 0 % Normal 0 [facility] Comment on above: Performed By: #### E DTOX, MG, CP, CDP #### [facility] [employer] [address] [place] [address] Vegetable Grader: Kael Tran MD Lymphocytes (Bld) [#/Vol] 2.17 10*3/uL Normal 1.10-3.70 [facility] Comment on above: Performed By: #### E DTOX, MG, CP, CDP #### [facility] [employer] [address] [place] [address] Vegetable Grader: Kael Tran MD Lymphocytes/100 WBC (Bld) 27 % Normal 24-43 [facility] Comment on above: Performed By: #### E DTOX, MG, CP, CDP #### [address] [address] Vegetable Grader: Kael Tran MD MCH (RBC) [Entitic mass] 30.4 pg Normal 25.2-33.5 [facility] Comment on above: Performed By: #### E DTOX, MG, CP, CDP #### [address] [address] Vegetable Grader: Kael Tran MD MCHC (RBC) [Mass/Vol] 33.6 g/dL Normal 28.4-34.8 [facility] Comment on above: Performed By: #### E DTOX, MG, CP, CDP #### [place] [address] Vegetable Grader: Kael Tran MD MCV (RBC) [Entitic vol] 90.4 fL Normal 82.6-102.9 [facility] Comment on above: Performed By: #### E DTOX, MG, CP, CDP #### [address] [address] Vegetable Grader: Kael Tran MD Monocytes (Bld) [#/Vol] 0.73 10*3/uL Normal 0.10-1.20 [facility] Comment on above: Performed By: #### E DTOX, MG, CP, CDP #### [address] [address] Vegetable Grader: Kael Tran MD Monocytes/100 WBC (Bld) 9 % Normal 3-12 [facility] Comment on above: Performed By: #### E DTOX, MG, CP, CDP #### [address] [address] Vegetable Grader: Kael Tran MD Neutrophil (Seg) 60 % Normal 36-65 [facility] Comment on above: Performed By: #### E DTOX, MG, CP, CDP #### [address] [address] Vegetable Grader: Kael Tran MD NRBC Automated 0.0 per 100 WBC Normal 0.0 [facility] Comment on above: Performed By: #### E DTOX, MG, CP, CDP #### [address] [address] Vegetable Grader: Kael Tran MD Platelet mean volume (Bld) [Entitic vol] 9.4 fL Normal 8.1-13.5 [facility] Comment on above: Performed By: #### E DTOX, MG, CP, CDP #### [address] [address] Vegetable Grader: Kael Tran MD Platelets (Bld) [#/Vol] 267 10*3/uL Normal 138-453 [facility] Comment on above: Performed By: #### E DTOX, MG, CP, CDP #### [address] [address] Vegetable Grader: Kael Tran MD RBC (Bld) [#/Vol] 5.30 10*6/uL Normal 4.21-5.77 [facility] Comment on above: Performed By: #### E DTOX, MG, CP, CDP #### [address] [address] Vegetable Grader: Kael Tran MD WBC (Bld) [#/Vol] 8.0 10*3/uL Normal 3.5-11.3 [facility] Comment on above: Performed By: #### E DTOX, MG, CP, CDP #### [address] [address] Vegetable Grader: Kael Tran MD Comp Metabolic Profon 2023 Albumin [Mass/Vol] 4.3 g/dL Normal 3.5-5.2 [facility] Comment on above: Performed By: #### E DTOX, MG, CP, CDP #### [facility] [employer] [address] [place] [address] Vegetable Grader: Kael Tran MD Albumin/Glob Ratio 2.0 Normal 1.0-2.5 [facility] Comment on above: Performed By: #### E DTOX, MG, CP, CDP #### [address] [address] Vegetable Grader: Kael Tran MD Alkaline Phos 57 U/L Normal 40-129 [facility] Comment on above: Performed By: #### E DTOX, MG, CP, CDP #### [facility] [employer] [address] [place] [address] Vegetable Grader: Kael Tran MD ALT [Catalytic activity/Vol] 35 U/L Normal 10-50 [facility] Comment on above: Performed By: #### E DTOX, MG, CP, CDP #### [facility] [employer] [address] [place] [address] Vegetable Grader: Kael Tran MD Anion gap [Moles/Vol] 11 mmol/L Normal 9-16 [facility] Comment on above: Performed By: #### E DTOX, MG, CP, CDP #### [facility] [employer] [address] [place] [address] Vegetable Grader: Kael Tran MD AST [Catalytic activity/Vol] 27 U/L Normal 10-50 [facility] Comment on above: Performed By: #### E DTOX, MG, CP, CDP #### [facility] [employer] [address] [place] [address] Vegetable Grader: Kael Tran MD Bilirubin [Mass/Vol] 1.2 mg/dL Normal 0.00-1.20 [facility] Comment on above: Performed By: #### E DTOX, MG, CP, CDP #### [facility] [employer] [address] [place] [address] Vegetable Grader: Kael Tran MD Calcium [Mass/Vol] 8.6 mg/dL Normal 8.6-10.4 [facility] Comment on above: Performed By: #### E DTOX, MG, CP, CDP #### [facility] [employer] [address] [place] [address] Vegetable Grader: Kael Tran MD Chloride [Moles/Vol] 104 mmol/L Normal 98-107 [facility] Comment on above: Performed By: #### E DTOX, MG, CP, CDP #### [facility] [employer] [address] [place] [address] Vegetable Grader: Kael Tran MD CO2 [Moles/Vol] 21 mmol/L Normal 20-31 [facility] Comment on above: Performed By: #### E DTOX, MG, CP, CDP #### [facility] [employer] [address] [place] [address] Vegetable Grader: Kael Tran MD Creatinine [Mass/Vol] 0.9 mg/dL Normal 0.70-1.20 [facility] Comment on above: Performed By: #### E DTOX, MG, CP, CDP #### [facility] [employer] [address] [place] [address] Vegetable Grader: Kael Tran MD GFR/1.73 sq M.predicted among non-blacks MDRD (S/P/Bld) [Vol rate/Area] mL/min/{1.73_m2} Normal >60 [facility] Comment on above: Result Comment: These results are not intended for use in patients <18 years of age. eGFR results are calculated without a race factor using the 2020 CKD-EPI equation. Careful clinical correlation is recommended, particularly when comparing to results calculated using previous equations. The CKD-EPI equation is less accurate in patients with extremes of muscle mass, extra-renal metabolism of creatine, excessive creatine ingestion, or following therapy that affects renal tubular secretion. Performed By: #### E DTOX, MG, CP, CDP #### [facility] [address] [place] [address] Vegetable Grader: Kael Tran MD Glucose [Mass/Vol] 93 mg/dL Normal 74-99 [facility] Comment on above: Performed By: #### E DTOX, MG, CP, CDP #### [facility] [employer] [address] [place] [address] Vegetable Grader: Kael Tran MD Potassium [Moles/Vol] 4.1 mmol/L Normal 3.7-5.3 [facility] Comment on above: Performed By: #### E DTOX, MG, CP, CDP #### [facility] [employer] [address] [place] [address] Vegetable Grader: Kael Tran MD Protein [Mass/Vol] 6.9 g/dL Normal 6.6-8.7 [facility] Comment on above: Performed By: #### E DTOX, MG, CP, CDP #### [facility] [address] [place] [address] Vegetable Grader: Kael Tran MD Sodium [Moles/Vol] 136 mmol/L Normal 136-145 [facility] Comment on above: Performed By: #### E DTOX, MG, CP, CDP #### [facility] [employer] [address] [place] [address] Vegetable Grader: Kael Tran MD Urea nitrogen [Mass/Vol] 14 mg/dL Normal 6-20 [facility] Comment on above: Performed By: #### E DTOX, MG, CP, CDP #### [facility] [address] [place] [address] Vegetable Grader: Kael Tran MD Drug Scr, Abuse, Uron 2023 Cannabinoid(s),Ur Positive Abnormal NEG [facility] Comment on above: Result Comment: Cuto ff: 50 ng/ml Performed By: #### E DTOX, MG, CP, CDP #### [employer] [address] [place] [address] Vegetable Grader: Kael Tran MD Interpretive Info Assay provides rapid clinical screening only. Presumptive positive results for Normal [facility] Comment on above: Result Comment: lega l purposes should be confirmed by another method. To request confirmation, please call the lab within 7 days of sample submission. Performed By: #### E DTOX, MG, CP, CDP #### [facility] [address] [place] [address] Vegetable Grader: Kael Tran MD Amphetamine(s),Ur Negative Normal NEG [facility] Comment on above: Result Comment: Cuto ff: 1000 ng/mL Performed By: #### E DTOX, MG, CP, CDP #### [employer] [address] [place] [address] Vegetable Grader: Kael Tran MD Barbiturate(s),Ur Negative Normal NEG [facility] Comment on above: Result Comment: Cuto ff: 200 ng/ml Performed By: #### E DTOX, MG, CP, CDP #### [employer] [address] [place] [id number] Vegetable Grader: Kael Tran MD Benzodiazepine(s) Negative Normal NEG [facility] Comment on above: Result Comment: Cuto ff: 200 ng/ml Performed By: #### E DTOX, MG, CP, CDP #### [employer] [address] [place] [id number] Vegetable Grader: Kael Tran MD Cocaine Metabolite Negative Normal NEG [facility] Comment on above: Result Comment: Cuto ff: 300 ng/ml Performed By: #### E DTOX, MG, CP, CDP #### [facility] [employer] [address] [place] [id number] Vegetable Grader: Kael Tran MD Fentanyl, Urine Negative Normal NEG [facility] Comment on above: Result Comment: Cuto ff: 5 ng/ml Performed By: #### E DTOX, MG, CP, CDP #### [address] [address] Vegetable Grader: Kael Tran MD Methadone Ql (U) Negative Normal NEG [facility] Comment on above: Result Comment: Cuto ff: 300 ng/ml Performed By: #### E DTOX, MG, CP, CDP #### [address] [address] Vegetable Grader: Kael Tran MD Opiate(s), Ur Negative Normal NEG [facility] Comment on above: Result Comment: Cuto ff: 300 ng/ml Performed By: #### E DTOX, MG, CP, CDP #### [address] [address] Vegetable Grader: Kael Tran MD Oxycodone, Urine Negative Normal NEG [facility] Comment on above: Result Comment: Cuto ff: 100 ng/ml Performed By: #### E DTOX, MG, CP, CDP #### [address] [address] Vegetable Grader: Kael Tran MD Phencyclidine, Ur Negative Normal NEG [facility] Comment on above: Result Comment: Cuto ff: 25 ng/ml Performed By: #### E DTOX, MG, CP, CDP #### [address] [address] Vegetable Grader: Kael Tran MD Tox Scr, Bld, EDon 4 Acetaminophen [Mass/Vol] ug/mL Low 10-30 [facility] Comment on above: Performed By: #### E DTOX, MG, CP, CDP #### [facility] [address] [place] [id number] Vegetable Grader: Kael Tran MD Ethanol [Mass/Vol] mg/dL Normal <10 [facility] Comment on above: Performed By: #### E DTOX, MG, CP, CDP #### [facility] [address] [place] [address] Vegetable Grader: Kael Tran MD Ethanol percent <0.010 Normal <0.010 [facility] Comment on above: Performed By: #### E DTOX, MG, CP, CDP #### [facility] [address] [place] [id number] Vegetable Grader: Kael Tran MD Salicylate <0.5 Normal 0.0-10.0 [facility] Comment on above: Performed By: #### E DTOX, MG, CP, CDP #### [facility] [address] [place] [id number] Vegetable Grader: Kael Tran MD Abstracton 06-29-2024 Abstract [id number] Frantz Villarreal 1985 [facility] Provider Department Center 06/29/2024 NENITA [facility]IRS[facility] Medical C Family History Problem Relation Age of Onset No Known Problems Mother No Known Problems Father No Known Problems Sister No Known Problems Brother No Known Problems Mother's Sister No Known Problems Father's Sister No Known Problems Mother's Brother No Known Problems Father's Brother No Known Problems Maternal Grandfather No Known Problems Maternal Grandmother No Known Problems Paternal Grandfather No Known Problems Paternal Grandmother No Known Problems Other Family Status - Relation Status Age at Mother Father Sister Brother Mother's Sister Father's Sister Mother's Brother Father's Brother Maternal Grandfather Maternal Grandmother Paternal Grandfather Paternal Grandmother Other Normal [facility] 30on 06-28-2024 30 Problem: Substance A buse (Historic and Current) Goal: LTG-Ability to name resources Outcome: Adequate for Discharge Goal: LTG-Ability to notice triggers Outcome: Adequate for Discharge Goal: LTG-Understand the need for abstinence Outcome: Adequate for Discharge Goal: STG-Indicate withdrawl symptoms Outcome: Adequate for Discharge Goal: STG-Willing to engage in conversations about continued abstinence Outcome: Adequate for Discharge Goal: STG-Reports why they were able to stop initially Outcome: Adequate for Discharge Normal [facility] 30 The patient is Moder ately Stable - Low risk of patient condition declining or worsening The patient's goals for the shift include comfort The clinical goals for the shift include safety Problem: Substance Abuse (Historic and Current) Goal: LTG-Ability to name resources Outcome: Adequate for Discharge Goal: LTG-Ability to notice triggers Outcome: Adequate for Discharge Goal: LTG-Understand the need for abstinence Outcome: Adequate for Discharge Goal: STG-Indicate withdrawl symptoms Outcome: Adequate for Discharge Goal: STG-Willing to engage in conversations about continued abstinence Outcome: Adequate for Discharge Goal: STG-Reports why they were able to stop initially Outcome: Adequate for Discharge Normal [facility] Abstracton 06-28-2024 Abstract [id number] Frantz Villarreal ie C 1985 [facility] Department Center 06/28/2024 NENITA HIRS[facility] Medical C Family History Problem Relation Age of Onset No Known Problems Mother No Known Problems Father No Known Problems Sister No Known Problems Brother No Known Problems Mother's Sister No Known Problems Father's Sister No Known Problems Mother's Brother No Known Problems Father's Brother No Known Problems Maternal Grandfather No Known Problems Maternal Grandmother No Known Problems Paternal Grandfather No Known Problems Paternal Grandmother No Known Problems Other Family Status - Relation Status Age at Mother Father Sister Brother Mother's Sister Father's Sister Mother's Brother Father's Brother Maternal Grandfather Maternal Grandmother Paternal Grandfather Paternal Grandmother Other Normal [facility] DSon 06-28-2024 DS Discharge Date: 2023 Time Spent with Patient: 31 minutes spent with patient, discussing discharge instructions, ordering medications, reviewing lab work, communicating with other healthcare professionals, documenting clinical information and the patient's follow-up plan. Chief Complaint: Alcohol abuse and withdrawal Consults: GIM History of Present Illness: Daron Villarreal is a 38 YOM that presents to [facility] inpatient recovery services for alcohol dependence with active withdrawal. Patient reports drinking 8 12 oz beers daily with last drink occurring this morning. Patient states he followed up with the [facility] when he was discharged from detox 6 months ago and was able to maintain sobriety for a few months before relapsing. Patient has a history of MDD and PTSD and is currently prescribe fluoxetine 40 mg daily. Patient also has a recent psychiatric admission in which he was admitted for suicide attempt. Patient was discharged from [facility] 10 days ago. 1. Alcohol: Beer Quantity/method of use/frequency: 8 12oz beers daily Last used: 06/22/2024 Total Length of use: Patient reported significant tolerance withdrawal symptoms over the years and multiple unsuccessful attempts to cut down or stop using alcohol and significant amount of time spent in getting alcohol, using alcohol, and recovering from its effect. Hospital Course: Patient responded adequately to the CIWA protocol as well as symptomatic treatment. No seizures or any signs and symptoms suggestive of delirium tremens seen during hospital stay. During the stay in the hospital, the patient participated in groups and several meetings with social workers to plan aftercare. There were no other acute psychiatric or medical emergencies seen during hospital stay. Lab Results: Results for orders placed or performed during the hospital encounter of 06/22/24 Acetaminophen level Result Value Ref Range Acetaminophen Level <10 (L) 10 - 30 ug/mL Basic metabolic panel Result Value Ref Range Sodium 135 (L) 136 - 145 mmol/L Potassium 3.9 3.5 - 5.1 mmol/L Chloride 103 98 - 107 mmol/L CO2 24 21 - 31 mmol/L BUN 14 7 - 25 mg/dL Creatinine 0.72 0.70 - 1.30 mg/dL Glucose 81 70 - 100 mg/dL Calcium 8.8 8.6 - 10.3 mg/dL Anion Gap 12 7 - 20 mmol/L eGFR 119.2 >60.0 mL/min/1.73m*2 BUN/Creatinine Ratio 19.4 Cholesterol, total Result Value Ref Range Cholesterol 199 120 - 200 mg/dL Gamma GT Result Value Ref Range GGT 54 9 - 64 U/L Hepatic function panel Result Value Ref Range Total Bilirubin 1.2 (H) 0.3 - 1.0 mg/dL Bilirubin, Direct 0.1 0 - 0.2 mg/dL Alkaline Phosphatase 61 34 - 104 U/L AST 21 13 - 39 U/L ALT (SGPT) 27 7 - 52 U/L Total Protein 7.5 6.0 - 8.3 g/dL Albumin 4.5 3.5 - 5.7 g/dL Magnesium Result Value Ref Range Magnesium 2.1 1.9 - 2.7 mg/dL Phosphorus Result Value Ref Range Phosphorus 2.5 2.5 - 5.0 mg/dL TSH Result Value Ref Range TSH 3.54 0.34 - 5.60 mIU/L Uric acid Result Value Ref Range Uric Acid 6.3 4.4 - 7.6 mg/dL Urinalysis Result Value Ref Range Color, Urine Straw (A) Yellow Clarity, Urine Clear Clear pH, Urine 6.0 5.0 - 8.0 pH Leukocytes, Urine Negative Negative Nitrite, Urine Negative Negative Protein, Urine Negative Negative mg/dL Glucose, Urine Negative Negative mg/dL Bilirubin, Urine Negative Negative Specific [place], Urine 1.004 (L) 1.015 - 1.020 Ketones, Urine Negative Negative mg/dL Blood, Urine Negative Negative Detox Panel Urine Result Value Ref Range Barbiturate Screen, Ur Negative Negative Benzodiazepines Screen, Urine Negative Negative Propoxyphene, Ur Negative Negative Methadone Screen, Urine Negative Negative TCA, Urine Negative Negative PCP Scrn, Ur Negative Negative Opiate Scrn, Ur Negative Negative Cocaine Screen, Urine Negative Negative Amphetamine+Methamphetamin e Screen, Ur Negative Negative Cannabinoid Screen, Urine Positive (A) Negative RPR Result Value Ref Range RPR Nonreactive Nonreactive Alcohol Serum Result Value Ref Range Ethanol Calculated % Ethanol Lvl 60.1 mg/dL CBC auto differential Result Value Ref Range Auto WBC 5.69 4.00 - 10.60 10*3/uL RBC 5.68 4.20 - 5.70 10*6/uL Hemoglobin 17.2 (H) 13.0 - 17.0 g/dL Hematocrit 50.0 39.0 - 55.0 % MCV 88.0 82.0 - 98.0 fL MCH 30.3 27.0 - 33.0 pg MCHC 34.4 32.0 - 35.0 g/dL RDW 12.7 11.5 - 15.0 % Neutrophils Relative 40.6 40.0 - 72.0 % Lymphocytes Relative 45.3 (H) 20.0 - 45.0 % Monocytes Relative 7.2 5.0 - 12.0 % Eosinophils Relative 5.8 0.0 - 6.0 % Basophils Relative 0.9 0.0 - 1.0 % Neutrophils Absolute 2.31 1.60 - 7.60 10*3/uL Lymphocytes Absolute 2.58 1.20 - 4.00 10*3/uL Monocytes Absolute 0.41 0.10 - 1.00 10*3/uL Eosinophils Absolute 0.33 0.00 - 0.50 10*3/uL Basophils Absolute 0.05 0.00 - 0.20 10*3/uL Platelets 211 150 - 400 10*3/uL nRBC % 0.0 0 % Immature Granulocytes Relative 0.2 0.0 - 1.0 % Immature Granulocytes Absolute 0.01 0.0 (more content not included)... [facility] NURSNOTEon 06-28-2024 NURSNOTE Patient discharged h ome. AVS reviewed, belongings returned. Pt ambulated to [employer] to meet his taxi. [facility] NURSNOTE Patient slept 8 hour s through the night. Scheduled and PRN medications are helping. [facility] 30on 06-27-2024 30 The patient is Moder ately Stable - Low risk of patient condition declining or worsening The patient's goals for the shift include comfort The clinical goals for the shift include safety Problem: Substance Abuse (Historic and Current) Goal: LTG-Ability to name resources Outcome: Progressing Goal: LTG-Ability to notice triggers Outcome: Progressing Goal: LTG-Understand the need for abstinence Outcome: Progressing Goal: STG-Indicate withdrawl symptoms Outcome: Progressing Goal: STG-Willing to engage in conversations about continued abstinence Outcome: Progressing Goal: STG-Reports why they were able to stop initially Outcome: Progressing [facility] 30 The patient is Moder ately Stable - Low risk of patient condition declining or worsening The patient's goals for the shift include Relaxation The clinical goals for the shift include Comfort/Safety Problem: Substance Abuse (Historic and Current) Goal: LTG-Ability to name resources Outcome: Progressing Goal: LTG-Ability to notice triggers Outcome: Progressing Goal: LTG-Understand the need for abstinence Outcome: Progressing Goal: STG-Indicate withdrawl symptoms Outcome: Progressing Goal: STG-Willing to engage in conversations about continued abstinence Outcome: Progressing Goal: STG-Reports why they were able to stop initially Outcome: Progressing [facility] 94on 06-27-2024 94 Group Topic: Self Es teem Group Date: 06/27/2024 Start Time: 1045 End Time: 1130 Facilitators: Chanel Crockett OT Department: [facility] Recovery Group Focus: check in, relapse prevention, self-awareness, and self-esteem Treatment Modality: Leisure Development, Patient-Centered Therapy, and Solution-Focused Therapy Interventions utilized were patient education, problem solving, and support Purpose: regain self-worth and reinforce self-care Name: Daron Villarreal Date of : 1985 MR: [id number] Level of Participation: withdrawn Quality of Participation: Patient withdrawn during group session. No active participation or integration with peers or OT at this time. No active refusal noted. Plan to encourage pt to attend groups and engage with other peers while on the unit. Patients Problems: Patient Active Problem List Diagnosis Alcohol abuse with withdrawal ([facility]/HCC) GERD (gastroesophageal reflux disease) Alcohol dependence with withdrawal, uncomplicated ([facility]) Alcohol abuse ETOH abuse [facility] NURSNOTEon 06-27-2024 NURSNOTE Patient resting in b ed in no acute distress, C/O anxiety, restless legs, sweats, and insomnia. CIWA=3. Scheduled and PRN medications given. Normal [facility] NURSNOTE Patient is alert, or iented x4. Appetite good, ate 100% of breakfast. Pt reports mild anxiety, junior technical writer will give PRN vistaril. Pt denies all other withdrawal symptoms. CIWA 1. Pt states he is awaiting transfer [facility] tomorrow. [facility] NURSNOTE The patient is resti ng in his room at this time, no signs of acute distress. Slept throughout the shift, no major issues. Vitals remain stable. Denied SI. Mali Saba RN [facility] 30on 06-26-2024 30 The patient is Moder ately Stable - Low risk of patient condition declining or worsening The patient's goals for the shift include Relaxation The clinical goals for the shift include Comfort/Safety Problem: Substance Abuse (Historic and Current) Goal: STG-Indicate withdrawl symptoms Outcome: Progressing Goal: STG-Willing to engage in conversations about continued abstinence Outcome: Progressing [facility] 94on 06-26-2024 94 Group Topic: Insight Group Date: 06/26/2024 Start Time: 1045 End Time: 1145 Facilitators: Maribell Hood HOLISTIC SPECIALIST Department: [facility] Recovery Number of Participants: 3 Group Focus: check in, communication, coping skills, feeling awareness/expression, leisure skills, other Self-care, self-awareness, self-esteem, and social skills Treatment Modality: Leisure Development, Patient-Centered Therapy, and Solution-Focused Therapy Interventions utilized were active listening, assignment, exploration, leisure development, patient education, and support Purpose: enhance coping skills, express feelings, increase insight or knowledge, regain self-worth, and reinforce self-care Name: Daron Villarreal Date of : 1985 MR: [id number] Level of Participation: minimal Quality of Participation: attentive and engaged Interactions with others: offered helpful suggestions Mood/Affect: appropriate Progress: Minimal Response: Pt. Engaged in group alongside HOLISTIC SPECIALIST and peers. Pt. Attended group late but engaged appropriately with group members in discussion about self-care habits. Pt. Did not complete assignment but took it back to his room to work on later. Plan: Pt. Will be encouraged to continue attending therapeutic recreation interventions with the HOLISTIC SPECIALIST and peers while on the unit. Patients Problems: Patient Active Problem List Diagnosis Alcohol abuse with withdrawal (CMS/HCC) GERD (gastroesophageal reflux disease) Alcohol dependence with withdrawal, uncomplicated ([facility]) Alcohol abuse ETOH abuse [facility] NURSNOTEon 06-26-2024 NURSNOTE PRN Vistaril 25mg gi xavier for anxiety. Mali Saba RN [facility] NURSNOTE PRN meds given. Clon idine 0.1mg given for restlessness. Trazodone 50mg given for insomnia. Mali Saba RN [facility] NURSNOTE The patient assessme nt is complete. The patient denies SI, no pain at this time. Compliant with medications. Consumed 100% of his dinner. NO skin issues noted. No signs of acute distress at this time. Last BM 06/26/24. Mali Saba RN [facility] NURSNOTE Pt has been calm and cooperative today. Pt received PRNs for anxiety and aches, pt states these were effective. Pt denies any other issues. [facility] NURSNOT Pt given PRN tylenol for 6/10 headache. PRN effective, pain now rated a 4/10. Pt denies any other issues or concerns. [facility] NURSNOTE The patient slept throughout the shift, no major issues. Pleasant and cooperative with staff. Compliant with medications. Denied SI, no signs of acute distress. Patient vitals are stable this morning. At this time the patient is sleeping in his bed. Mali Saba RN [facility] 3006-25-2024 30 Problem: Substance A buse (Historic and Current) Goal: LTG-Ability to name resources Outcome: Progressing Goal: LTG-Ability to notice triggers Outcome: Progressing Goal: LTG-Understand the need for abstinence Outcome: Progressing Goal: STG-Indicate withdrawl symptoms Outcome: Progressing Goal: STG-Willing to engage in conversations about continued abstinence Outcome: Progressing Goal: STG-Reports why they were able to stop initially Outcome: Progressing The patient is Moderately Stable - Low risk of patient condition declining or worsening The patient's goals for the shift include relaxation The clinical goals for the shift include comfort/safety Over the shift, the patient did not make progress toward the following goals. Barriers to progression include anxiety. Recommendations to address these barriers include relaxation. [facility] 30 The patient is Moder ately Stable - Low risk of patient condition declining or worsening The patient's goals for the shift include Relaxation The clinical goals for the shift include Comfort/Safety [facility] 94on 06-25-2024 94 Group Topic: Relapse Prevention Group Date: 06/25/2024 Start Time: 1100 End Time: 1200 Facilitators: CHRIS Crow Department: [facility] Recovery Number of Participants: 4 Group Focus: chemical dependency issues, feeling awareness/expression, goals/reality orientation, leisure skills, personal responsibility, problem solving, self-awareness, and substance abuse education Treatment Modality: Interpersonal Therapy and Leisure Development Interventions utilized were active listening, leisure development, patient education, problem solving, and support Purpose: enhance coping skills, express feelings, improve communication skills, increase insight or knowledge, and relapse prevention strategies Name: Daron Villarreal Date of : 1985 MR: [id number] Level of Participation: refused Progress: None Response: Pt. Actively refused integration into group with HOLISTIC SPECIALIST and peers at this time. Plan: Pt. Will be encouraged to attend therapeutic recreation interventions with the HOLISTIC SPECIALIST in the future. Patients Problems: Patient Active Problem List Diagnosis Alcohol abuse with withdrawal (CMS/HCC) GERD (gastroesophageal reflux disease) Alcohol dependence with withdrawal, uncomplicated (CMS/HCC) Alcohol abuse ETOH abuse [facility] NURSNOTEon 06-25-2024 NURSNOTE PRN meds given. Traz odone 50mg given for insomnia. Vistaril 25mg given for anxiety. Clonidine 0.1mg given for restlessness. Mali Saba RN [facility] NURSNOTE The patient assessme nt is complete, able to follow commands. Denies SI, no pain at this time. Consumed 100% of his dinner. No signs of acute distress at this time. Last BM 06/25/2024/formed. Patient states he is feeling anxious. Mali Saba RN [facility] NURSNOTE Patient resting comfortably in room. No needs identified. Will continue to monitor. Normal [facility] NURSNOTE Patient resting in b ed comfortably. Patient requested medication for anxiety. Medication administered per DEC. No further needs identified. Will continue to monitor. [facility] NURSNOTE Patient resting in b ed watching tv comfortably. No needs identified. Will continue to monitor. [facility] NURSNOTE Patient resting comfortably in bed. No needs identified. Will continue to monitor. Normal [facility] NURSNOTE Patient resting comfortably in bed. No needs identified. Will continue to monitor. Normal [facility] NURSNOTE The patient slept th rough the entire shift, no major issues. Denied SI, Compliant with medications. Pleasant and cooperative with staff. At this time the patient is sleeping in his bed. Mali Saba RN [facility] 30on 06-24-2024 30 Problem: Substance A buse (Historic and Current) Goal: LTG-Ability to name resources Outcome: Progressing Goal: LTG-Ability to notice triggers Outcome: Progressing Goal: LTG-Understand the need for abstinence Outcome: Progressing Goal: STG-Indicate withdrawl symptoms Outcome: Progressing Goal: STG-Willing to engage in conversations about continued abstinence Outcome: Progressing Goal: STG-Reports why they were able to stop initially Outcome: Progressing The patient is Moderately Stable - Low risk of patient condition declining or worsening The patient's goals for the shift include comfrot The clinical goals for the shift include safety Over the shift, the patient did not make progress toward the following goals. Barriers to progression include anxiety. Recommendations to address these barriers include relaxation. Normal [facility] 30 The patient is Moder ately Stable - Low risk of patient condition declining or worsening The patient's goals for the shift include comfort The clinical goals for the shift include safety Problem: Substance Abuse (Historic and Current) Goal: LTG-Ability to name resources Outcome: Progressing Goal: LTG-Ability to notice triggers Outcome: Progressing Goal: LTG-Understand the need for abstinence Outcome: Progressing Goal: STG-Indicate withdrawl symptoms Outcome: Progressing Goal: STG-Willing to engage in conversations about continued abstinence Outcome: Progressing Goal: STG-Reports why they were able to stop initially Outcome: Progressing [facility] 94on 06-24-2024 94 Group Topic: Activit y Therapy Group Date: 06/24/2024 Start Time: 1400 End Time: 1450 Facilitators: Maribell Hood HOLISTIC SPECIALIST Department: [facility] Recovery Number of Participants: 2 Group Focus: clarity of thought, communication, concentration, coping skills, feeling awareness/expression, goals/reality orientation, leisure skills, self-awareness, and social skills Treatment Modality: Interpersonal Therapy and Leisure Development Interventions utilized were active listening, leisure development, and support Purpose: enhance coping skills, express feelings, improve communication skills, increase insight or knowledge, regain self-worth, and reinforce self-care Name: Daron Villarreal Date of : 1985 MR: [id number] Level of Participation: withdrawn Progress: None Response: Pt. Was withdrawn from group and remained isolated in their room. Plan: Pt. Will be encouraged to attend therapeutic recreation interventions with the HOLISTIC SPECIALIST in the future. Patients Problems: Patient Active Problem List Diagnosis Alcohol abuse with withdrawal (CMS/HCC) GERD (gastroesophageal reflux disease) Alcohol dependence with withdrawal, uncomplicated (CMS/HCC) Alcohol abuse ETOH abuse [facility] 94 Group Topic: Activit y Therapy Group Date: 06/24/2024 Start Time: 1100 End Time: 1150 Facilitators: Maribell Hood HOLISTIC SPECIALIST Department: [facility] Recovery Number of Participants: 4 Group Focus: check in, clarity of thought, communication, coping skills, family, forgiveness, leisure skills, loss/grief issues, and problem solving Treatment Modality: Leisure Development and Patient-Centered Therapy Interventions utilized were active listening, exploration, leisure development, and support Purpose: enhance coping skills, express feelings, improve communication skills, and increase insight or knowledge Name: Daron Villarreal Date of : 1985 MR: [id number] Level of Participation: active Quality of Participation: attentive, cooperative, and engaged Interactions with others: supportive Mood/Affect: appropriate Progress: Moderate Response: Pt. Engaged in group alongside HOLISTIC SPECIALIST and peers. Pt. Participated in group activity and discussion appropriately with peers. Plan: Pt. Will be encouraged to continue attending therapeutic recreation interventions with the HOLISTIC SPECIALIST and peers while on the unit. Patients Problems: Patient Active Problem List Diagnosis Alcohol abuse with withdrawal (CMS/HCC) GERD (gastroesophageal reflux disease) Alcohol dependence with withdrawal, uncomplicated ([facility]) Alcohol abuse ETOH abuse [facility] Abstracton 06-24-2024 Abstract [id number] Frantz Villarreal rickey Sheth 1985 M Date Provider Department Center 06/24/2024 NENITA [facility]IRS[facility] Medical C Family History Problem Relation Age of Onset No Known Problems Mother No Known Problems Father No Known Problems Sister No Known Problems Brother No Known Problems Mother's Sister No Known Problems Father's Sister No Known Problems Mother's Brother No Known Problems Father's Brother No Known Problems Maternal Grandfather No Known Problems Maternal Grandmother No Known Problems Paternal Grandfather No Known Problems Paternal Grandmother No Known Problems Other Family Status - Relation Status Age at Mother Father Sister Brother Mother's Sister Father's Sister Mother's Brother Father's Brother Maternal Grandfather Maternal Grandmother Paternal Grandfather Paternal Grandmother Other [facility] NURSNOTEon 06-24-2024 NURSNOTE Last 06/24/2024- formed. [place] Saba, FELIPE [facility] NURSNOTE PRN Trazodone 50mg g iven for insomnia. [place] Saba RN [facility] NURSNOTE The patient assessme nt is complete, vitals are stable. The patient is A/Ox4 and is able to follow commands. Denies SI, no signs of acute distress at this time. BS are active all 4 quads. Consumed 100% of his dinner. [place] Saba RN [facility] NURSNOTE PRN Vistaril and gabapentin given for anxiety. [facility] NURSNOTE Neurontin and vistar il and zofran given prn for anxiety and nausea. [facility] NURSNOTE Patient slept 9 hour s through the night. Scheduled and PRN medications are helping. [facility] NURSNOTE CIWA=1. [facility] 3006-23-2024 30 The patient is Moder ately Stable - Low risk of patient condition declining or worsening The patient's goals for the shift include comfort The clinical goals for the shift include safety Problem: Substance Abuse (Historic and Current) Goal: LTG-Ability to name resources Outcome: Progressing Goal: LTG-Ability to notice triggers Outcome: Progressing Goal: LTG-Understand the need for abstinence Outcome: Progressing Goal: STG-Indicate withdrawl symptoms Outcome: Progressing Goal: STG-Willing to engage in conversations about continued abstinence Outcome: Progressing Goal: STG-Reports why they were able to stop initially Outcome: Progressing [facility] 30 The patient is Moder ately Stable - Low risk of patient condition declining or worsening The patient's goals for the shift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 (5' 11 ) Wt 127 kg (281 lb) SpO2 96% BMI 39.19 kg/m??? 12/09/2023 12:55 AM 12/09/2023 7:25 AM 12/09/2023 8:18 PM 12/10/2023 9:15 AM 12/10/2023 8:17 PM 12/11/2023 8:00 AM 06/22/2024 12:18 PM Vitals Systolic 96 127 130 133 115 124 117 Diastolic 60 69 79 77 65 76 88 Heart Rate 62 66 93 89 77 75 81 Temp 36.8 ???C (98.2 ???F) 36.9 ???C (98.4 ???F) 36.6 ???C (97.9 ???F) Resp 16 16 17 18 18 16 Height (in) 1.803 m (5' 11 ) Weight (lb) 281 BMI 39.19 kg/m2 BSA (m2) 2.52 m2 No intake/output data recorded. Appearance/Grooming: eye contact fair, grooming moderately kept, and well developed, well nourished Musculoskeletal: Normal Behavior: normal Eye Contact: fair Orientation: Appropriate to age, Person, Place, and Time Mood: euthymic Affect: mood-congruent Memory: Recent: good Attention Span: good Concentration: good Language Usage: Appropriate to age Speech: Coherent and Regular rate, rhythm, volume and articulation Fund. Of Knowledge: WNL Thought Processes: Abstract reasoning appropriate to age Thought Associations: No loosening of associations Thought Abnormalities or Psychosis: Not present Suicidal/ Homicidal: none Judgement: Fair for the need for treatment, poor by history Insight: poor Sleep: normal Appetite: no change Energy: no change Gait: normal Lab Results: Results for orders placed or performed during the hospital encounter of 06/22/24 Urinalysis Result Value Ref Range Color, Urine Straw (A) Yellow Clarity, Urine Clear Clear pH, Urine 6.0 5.0 - 8.0 pH Leukocytes, Urine Negative Negative Nitrite, Urine Negative Negative Protein, Urine Negative Negative mg/dL Glucose, Urine Nega (more content not included)... Normal [facility] MAGNESIUMon 06-22-2024 Magnesium [Mass/Vol] 2.1 mg/dL Normal 1.9-2.7 [facility] Comment on above: Performed By: #### L [id number] #### [facility] (BEAKER) [address] [place] [address] NURSNOTEon 06-22-2024 NURSNOTE Evening meds given a long with PRN vistaril for anxiety and trazodone for sleep. Patient denies any other needs at this time. States his headache is getter better. PRN Tylenol effective. Normal [facility] NURSNOTE Vital signs and asse ssment completed. Patient complains of a headache. No sweating or tremor noted. PRN tylenol and gabapentin given. Denies any other needs at this time. Normal [facility] NURSNOTE PRN Tylenol given fo r headache. 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 He reports drinking 8-12 12 ounce cans of beer a day. He reports his last drink was approximately 0800 06/22/24. Pt is experiencing mild withdrawal at this time with main complaint being a headache. Pt oriented to unit. Will continue to monitor. Normal [facility] PHOSPHORUSon 06-22-2024 Magnesium [Mass/Vol] 2.5 mg/dL Normal 2.5-5.0 [facility] Comment on above: Performed By: #### L [id number] #### [facility] ([facility]) [address] [place] [address] RPRon 06-22-2024 REAGIN AB PRESENCE IN SERUM BY RPR Non-Reactive Normal Nonreactive [facility] Comment on above: Performed By: #### L [id number] #### [facility] ([email or web address]) [address] [place] [address] TSHon 06-22-2024 THYROTROPIN (MIU/L) IN SER/PLAS BY DETECTION LIMIT <= 0.05 MIU/L 3.54 mIU/L Normal 0.34-5.60 [facility] Comment on above: Performed By: #### L [id number] #### [facility] ([facility] [address] [place] [address] URIC ACIDon 06-22-2024 Magnesium [Mass/Vol] 6.3 mg/dL Normal 4.4-7.6 [facility] Comment on above: Performed By: #### L [id number] ####[facility] ([facility])[address] [facility] [address] URINALYSISon 06-22-2024 BILIRUBIN, TOTAL PRESENCE IN URINE Negative Normal Negative [facility] Comment on above: Order Comment: Micro scopics not performed on urines with negative chemical reactions unless requested on original order. Performed By: #### L [id number] #### [facility] ([facility]) [address] [place] [address] Clarity (U) Clear Normal Clear [facility] Comment on above: Order Comment: Micro scopics not performed on urines with negative chemical reactions unless requested on original order. Performed By: #### L [id number] #### [facility] ([facility]) [address] [place] [address] Color (U) Straw Abnormal Yellow [facility] Comment on above: Order Comment: Micro scopics not performed on urines with negative chemical reactions unless requested on original order. Performed By: #### L [id number] #### [facility] ([facility]) [address] [place] [address] Glucose (U) [Mass/Vol] Negative Normal Negative [facility] Comment on above: Order Comment: Micro scopics not performed on urines with negative chemical reactions unless requested on original order. Performed By: #### L [id number] #### [facility] (BEAKER) [address] [place] [address] HEMOGLOBIN PRESENCE IN URINE Negative Normal Negative [facility] Comment on above: Order Comment: Micro scopics not performed on urines with negative chemical reactions unless requested on original order. Performed By: #### L [id number] #### [facility] ([facility]) [address] [place] [address] Ketones Ql (U) Negative Normal Negative [facility] Comment on above: Order Comment: Micro scopics not performed on urines with negative chemical reactions unless requested on original order. Performed By: #### L [id number] #### [facility] ([facility]) [address] [place] [address] LEUKOCYTE ESTERASE PRESENCE IN URINE BY TEST STRIP Negative Normal Negative [facility] Comment on above: Order Comment: Micro scopics not performed on urines with negative chemical reactions unless requested on original order. Performed By: #### L [id number] #### [facility] ([facility]) [address] [place] [address] NITRITE PRESENCE IN URINE Negative Normal Negative [facility] Comment on above: Order Comment: Micro scopics not performed on urines with negative chemical reactions unless requested on original order. Performed By: #### L [id number] #### [facility] ([facility]) [address] [place] [address] pH (U) 6.0 [pH] Normal 5.0-8.0 [facility] Comment on above: Order Comment: Micro scopics not performed on urines with negative chemical reactions unless requested on original order. Performed By: #### L [id number] #### [facility] ([facility]) [address] [place] [address] Protein (U) [Mass/Vol] Negative Normal Negative [facility] Comment on above: Order Comment: Micro scopics not performed on urines with negative chemical reactions unless requested on original order. Performed By: #### L [id number] #### [facility] ([facility]) [address] [place] [address] Specific gravity (U) [Rel density] 1.004 Low 1.015-1.020 [facility] Comment on above: Order Comment: Micro scopics not performed on urines with negative chemical reactions unless requested on original order. Performed By: #### L [id number] #### [facility] (BEAKER) [address] [address] .Fentanyl Scrn wo Conf,Uron 06-14-2024 Ur Fentanyl Scrn Negative Normal NEG <1.0 [facility] Comment on above: Performed By: #### C [id number] ####[place] [address] Ur Fentanyl Scrn Qnt 0.50 ng/mL Normal <=0.99 [facility] Comment on above: Performed By: #### C [id number] ####[place] [address] .UA Microscp Aon 06-14-2024 UA Mucus Present Normal Absent [facility] Comment on above: Performed By: #### . Urinalysis Microscopic Auto ####[place] [address] UA RBC Quant 0 /HPF Normal 0-5 [facility] Comment on above: Performed By: #### . Urinalysis Microscopic Auto ####[place] [address] UA Sperm Present Abnormal Absent [facility] Comment on above: Performed By: #### . Urinalysis Microscopic Auto ####[place] [address] UA Squepi Cells Quant <1 Normal 0-29 [facility] Comment on above: Performed By: #### . Urinalysis Microscopic Auto ####[place] [address] UA WBC Quant 0 /HPF Normal 0-5 [facility] Comment on above: Performed By: #### . Urinalysis Microscopic Auto ####[place] [address] .eGFRon 06-14-2024 GFR/1.73 sq M.predicted MDRD (S/P/Bld) [Vol rate/Area] mL/min/{1.73_m2} Normal >=60 [facility] Comment on above: Result Comment: [facility] have implemented the eGFR calculation approach that does not have a coefficient for race and that conforms to the NKF-ASN Task Force Recommendations.Stages of Chronic Kidney Disease GFRStage 3a Mild to moderate loss of kidney function 59 to 45Stage 3b Moderate to severe loss of kidney function 44 to 33Stage 4 Severe loss of kidney function 29 to 15Stage 5 Kidney failure Less than 15GFR calculated using the CKD-Epi Creatinine Equation (2020):eGFR = 142 X min(SCr/?, 1)? X max(SCr /?, 1)-1.200 X 0.9938Age X 1.012 [if female]Abbreviations/Units:eGFR (estimated glomerular filtration rate) = mL/min/1.73 m2SCr (standardized serum creatinine) = mg/dL? = 0.7 (females) or 0.9 (males)? = -0.241 (females) or -0.302 (males)min = indicates the minimum of SCr/? or 1max = indicates the maximum of SCr/? or 1Age = years Performed By: #### E GFR ####[address] [address] CBC w/ Diffon 06-14-2024 Erythrocyte distribution width (RBC) [Ratio] 13.7 % Normal 11.6-14.8 [facility] Comment on above: Performed By: #### C BC ####[address] [address] Hematocrit (Bld) [Volume fraction] 44.0 % Normal 41.0-53.0 [facility] Comment on above: Performed By: #### C BC ####[address] [address] Hemoglobin (Bld) [Mass/Vol] 15.2 g/dL Normal 13.5-17.5 [facility] Comment on above: Performed By: #### C BC ####[address] [address] MCH (RBC) [Entitic mass] 30.7 pg Normal 27.0-35.0 [facility] Comment on above: Performed By: #### C BC ####[address] [address] MCHC 34.4 % Normal 31.0-37.0 [facility] Comment on above: Performed By: #### C BC ####[address] [address] MCV (RBC) [Entitic vol] 89.3 fL Normal 80.0-100.0 [facility] Comment on above: Performed By: #### C BC ####[address] [address] Platelet 239 x10*3/mcL Normal 150-450 [facility] Comment on above: Performed By: #### C BC ####[place] [id number] Platelet mean volume (Bld) [Entitic vol] 7.7 fL Normal 6.7-10.6 [facility] Comment on above: Performed By: #### C BC ####[place] [id number] RBC 4.93 x10*6/mcL Normal 4.30-5.80 [facility] Comment on above: Performed By: #### C BC ####[place] [id number] WBC 7.4 x10*3/mcL Normal 4.5-11.0 [facility] Comment on above: Performed By: #### C BC ####[place] [id number] CMPon 06-14-2024 Albumin [Mass/Vol] 4.0 g/dL Normal 3.2-4.9 [facility] Comment on above: Performed By: #### C OMP ####[place] [id number] Albumin/Globulin [Mass ratio] 1.6 {ratio} Normal 1.1-2.2 [facility] Comment on above: Performed By: #### C OMP ####[place] [id number] Alk Phos 53 IU/L Normal 32-91 [facility] Comment on above: Performed By: #### C OMP ####[address] [address] ALT [Catalytic activity/Vol] 48 U/L Normal 17-63 [facility] Comment on above: Performed By: #### C OMP ####[address] [address] Anion gap [Moles/Vol] 8 mmol/L Normal 4-12 [facility] Comment on above: Performed By: #### C OMP ####[address] [address] AST [Catalytic activity/Vol] 31 U/L Normal 15-41 [facility] Comment on above: Performed By: #### C OMP ####[address] [address] Bili Total 0.8 mg/dL Normal 0.3-1.2 [facility] Comment on above: Performed By: #### C OMP ####[address] [address] Calcium [Mass/Vol] 9.0 mg/dL Normal 8.5-10.3 [facility] Comment on above: Performed By: #### C OMP ####[address] [address] Chloride [Moles/Vol] 102 mmol/L Normal 98-110 [facility] Comment on above: Performed By: #### C OMP ####[address] [address] CO2 [Moles/Vol] 24 mmol/L Normal 22-32 [facility] Comment on above: Performed By: #### C OMP ####[address] [address] Creatinine [Mass/Vol] 0.83 mg/dL Normal 0.61-1.24 [facility] Comment on above: Performed By: #### C OMP ####[address] [address] Glucose [Mass/Vol] 104 mg/dL High 70-99 [facility] Comment on above: Performed By: #### C OMP ####[address] [address] Potassium [Moles/Vol] 4.0 mmol/L Normal 3.4-4.8 [facility] Comment on above: Performed By: #### C OMP ####[place] [id number] Protein [Mass/Vol] 6.5 g/dL Normal 6.5-8.1 [facility] Comment on above: Performed By: #### C OMP ####[place] [id number] Sodium [Moles/Vol] 134 mmol/L Normal 133-142 [facility] Comment on above: Performed By: #### C OMP ####[place] [id number] Urea nitrogen [Mass/Vol] 15 mg/dL Normal 8-26 [facility] Comment on above: Performed By: #### C OMP ####[place] [id number] Urea nitrogen/Creatinine [Mass ratio] 18.1 mg/mg Normal 10.0-20.0 [facility] Comment on above: Performed By: #### C OMP ####[place] [id number] Diff Autoon 06-14-2024 Baso Absolute 0.2 x10*3/mcL Normal 0.0-0.2 [facility] Comment on above: Performed By: #### . Automated Diff ####[address] [address] Basophils/100 WBC (Bld) 3.1 % High 0.0-1.2 [facility] Comment on above: Performed By: #### . Automated Diff ####[place] [id number] Eos Absolute 0.5 x10*3/mcL High 0.0-0.4 [facility] Comment on above: Performed By: #### . Automated Diff ####[address] [address] Eosinophils/100 WBC (Bld) 7.2 % High 0.0-6.1 [facility] Comment on above: Performed By: #### . Automated Diff ####[address] [address] Lymph Absolute 2.0 x10*3/mcL Normal 1.0-4.8 [facility] Comment on above: Performed By: #### . Automated Diff ####[place] [id number] Lymphocytes/100 WBC (Bld) 26.6 % Low 27.2-40.8 [facility] Comment on above: Performed By: #### . Automated Diff ####[place] [id number] [place] Absolute 0.8 x10*3/mcL Normal 0.3-1.1 [facility] Comment on above: Performed By: #### . Automated Diff ####[place] [id number] Monocytes/100 WBC (Bld) 10.6 % Normal 4.7-13.9 [facility] Comment on above: Performed By: #### . Automated Diff ####[address] [address] Neutro Absolute 3.9 x10*3/mcL Normal 1.8-7.7 [facility] Comment on above: Performed By: #### . Automated Diff ####[address] [address] Neutro Auto 52.5 % Normal 47.2-70.8 [facility] Comment on above: Performed By: #### . Automated Diff ####[address] [address] ED Clinical Summaryon 2023 ED Clinical Summary Normal [facility] ED Note-Nursingon 06-14-2024 ED Note-Nursing Normal [facility] ED Note-Physicianon 06-14-20 ED Note-Physician Normal [facility] Ethanolon 06-14-2024 Ethanol, Plasma <10 Normal <=9 [facility] Comment on above: Result Comment: To c onvert mg/dL to g/dL, divide result by 1,000. Legal limit of intoxication is 80 mg/dL (0.08 g/dL). Performed By: #### A LC ####[place] [id number] Magnesiumon 06-14-2024 Magnesium [Mass/Vol] 2.0 mg/dL Normal 1.7-2.4 [facility] Comment on above: Performed By: #### M G ####[address] [address] UA w Culture if Indon 2023 Color (U) Colorless Normal Yellow [facility] Comment on above: Performed By: #### U CI ####[address] [address] Ketones Ql (U) Negative Normal Negative [facility] Comment on above: Performed By: #### U CI ####[address] [address] UA Blood Negative Normal Negative [facility] Comment on above: Performed By: #### U CI ####[address] [address] UA Clarity Clear Normal Clear [facility] Comment on above: Performed By: #### U CI ####[address] [address] UA Glucose Normal Normal Negative [facility] Comment on above: Performed By: #### U CI ####[address] [address] UA Leukocyte Esterase Negative Normal Negative [facility] Comment on above: Performed By: #### U CI ####[address] [address] UA Nitrite Negative Normal Negative [facility] Comment on above: Performed By: #### U CI ####[address] [address] UA pH 6.5 Normal 4.5 - 7.8 [facility] Comment on above: Performed By: #### U CI ####[address] [address] UA Protein Negative Normal Negative [facility] Comment on above: Performed By: #### U CI ####[address] [address] UA Source Clean Catch Normal [facility] Comment on above: Performed By: #### U CI ####[address] [address] UA Spec Grav 1.006 Normal 1.003-1.035 [facility] Comment on above: Performed By: #### U CI ####[address] [address] UA Urobilinogen Normal Normal 0.2 - 1.0 [facility] Comment on above: Performed By: #### U CI ####[place] [id number] Urobilinogen (U) [Mass/Vol] Negative Normal Negative [facility] Comment on above: Performed By: #### U CI ####[address] [address] UDS Compon 06-14-2024 Creatinine [Mass/Vol] 19.1 mg/dL Normal [facility] Comment on above: Performed By: #### C [id number] ####[address] [address] Ur Amph Scrn Negative Normal NEG = <1000 [facility] Comment on above: Performed By: #### C [id number] ####[address] [address] Ur Yenifer Scrn Negative Normal NEG = <200 [facility] Comment on above: Performed By: #### C [id number] ####[address] [address] Ur Benzodia Scrn Positive Abnormal NEG = <200 [facility] Comment on above: Result Comment: This unconfirmed positive screening result is to be used for medical treatment purposes only. Unconfirmed screening results must not be used for non-medical purposes (e.g. employment testing, legal testing). Performed By: #### C [id number] ####[address] [address] Ur Cannab Scrn Positive Abnormal NEG = <50 [facility] Comment on above: Result Comment: This unconfirmed positive screening result is to be used for medical treatment purposes only. Unconfirmed screening results must not be used for non-medical purposes (e.g. employment testing, legal testing). Performed By: #### C [id number] ####[address] [address] Ur Cocaine Scrn Negative Normal NEG = <300 [facility] Comment on above: Performed By: #### C [id number] ####[address] [address] Ur Methadone Scn Negative Normal NEG = <300 [facility] Comment on above: Performed By: #### C D:[id number] ####[address] [address] Ur Opiate Scrn Negative Normal NEG = <300 [facility] Comment on above: Performed By: #### C [id number] ####[address] [address] Ur Oxy Screen Negative Normal NEG = <100 [facility] Comment on above: Performed By: #### C D:[id number] ####[address] [address] Ur Oxy Scrn Qnt 3 ng/mL Normal <=99 [facility] Comment on above: Performed By: #### C [id number] ####[address] [address] Ur PCP Scrn Negative Normal NEG = <25 [facility] Comment on above: Performed By: #### C D:[id number] ####[place] [address] [place] [address] UA pH 6.5 Normal 4.5 - 7.8 [facility] Comment on above: Performed By: #### C [id number] ####[facility] [place] [address] UA Spec Grav 1.005 Normal 1.003-1.035 [facility] Comment on above: Performed By: #### C D:[id number] ####[place] [address] [place] [address] EKG 12 Leadon 06-11-2024 Atrial Rate 89 BPM [facility] P [place] 50 degrees [facility] P-R Interval 152 ms [facility] Q-T Interval 364 ms [facility] QRS Duration 86 ms [facility] QTc Calculation (Bazett) 442 ms [facility] R [place] 30 degrees [facility] T [place] 39 degrees [facility] Ventricular Rate 89 BPM [facility] Normal sinus rhythm Septal infarct (cited on or before 08-JUN-2024) Abnormal ECG When compared with ECG of 08-JUN-2024 13:54, No significant change was found Confirmed by STUART JERNIGAN ([id number]) on 06/11/2024 10:56:52 AM [facility] Stuart Jernigan MD - 06/11/2024 Normal sinus rhythm Septal infarct (cited on or before 08-JUN-2024) Abnormal ECG When compared with ECG of 08-JUN-2024 13:54, No significant change was found Confirmed by STUART JERNIGAN ([id number]) on 06/11/2024 10:56:52 AM [facility] Normal sinus rhythm Septal infarct , age undetermined Abnormal ECG When compared with ECG of 02-FEB-2023 18:13, Septal infarct is now Present Nonspecific T wave abnormality is worse in Lateral leads Confirmed by STUART JERNIGAN ([id number]) on 06/11/2024 10:56:48 AM [facility] Stuart Jernigan MD - 06/11/2024 Normal sinus rhythm Septal infarct , age undetermined Abnormal ECG When compared with ECG of 02-FEB-2023 18:13, Septal infarct is now Present Nonspecific T wave abnormality is worse in Lateral leads Confirmed by STUART JERNIGAN ([id number]) on 06/11/2024 10:56:48 AM [employer] EKG 12 LeadOrdered By: Stuart Jernigan on 06-11-2024 Atrial Rate 99 BPM [employer] Work Phone: P [place] 53 degrees [employer] Work Phone: P-R Interval 148 ms [employer] Work Phone: Q-T Interval 340 ms [employer] Work Phone: QRS Duration 80 ms [employer] Work Phone: QTc Calculation (Bazett) 436 ms [employer] Work Phone: R [place] 36 degrees [employer] Work Phone: T [place] 32 degrees [employer] Work Phone: Ventricular Rate 99 BPM [employer] Work Phone: No Panel Informationon 06-11 [employer] ACETAMINOPHENon 06-08-2024 Acetaminophen [Mass/Vol] ug/mL Normal 0.0-20.0 [facility] Comment on above: Performed By: #### U R_CS #### [facility] [address] [place] [address] ANION GAPon 06-08-2024 Anion gap [Moles/Vol] 13.0 mmol/L Normal 8.0-16.0 [facility] Comment on above: Result Comment: ANIO N GAP = Sodium -(Chloride + CO2) Performed By: #### P CFLU #### [facility] [address] [facility] [address] Acetaminophen Levelon 2023 Acetaminophen [Mass/Vol] ug/mL 0.0 - 20.0 ug/mL [facility] Comment on above: Performed at [facility] [address] [place] [address] Anion Gapon 06-08-2024 Anion gap [Moles/Vol] 13.0 mmol/L 8.0 - 16.0 meq/L [facility] Comment on above: ANION GAP = Sodium - (Chloride + CO2) Performed at [facility] [address] [place] [address] BASIC METABOL PANELon 2023 Calcium [Mass/Vol] 9.1 mg/dL Normal 8.5-10.5 [facility] Comment on above: Performed By: #### U R_CS #### [facility] [address] [place] [address] Chloride [Moles/Vol] 102 mmol/L Normal 98-111 [facility] Comment on above: Performed By: #### U R_CS #### [facility] [address] [place] [address] CO2 [Moles/Vol] 21 mmol/L Low 23-33 [facility] Comment on above: Performed By: #### U R_CS #### [facility] [address] [place] [address] Creatinine [Mass/Vol] 0.8 mg/dL Normal 0.4-1.2 [facility] Comment on above: Performed By: #### U R_CS #### [facility] [address] [place] [address] Glucose [Mass/Vol] 91 mg/dL Normal 70-108 [facility] Comment on above: Performed By: #### U R_CS #### [facility] [address] [place] [address] POTASSIUM WITH REFLEX MG 4.5 meq/L Normal 3.5-5.2 [facility] Comment on above: Result Comment: Low level specimen hemolysis is present as indicated by the interference level index on the Aldair analyzer. The reported K+ level may be falsely increased. If clinically warranted, recollection of the specimen is suggested. Performed By: #### U R_CS #### [facility] [employer] [address] [place] [address] Sodium [Moles/Vol] 136 mmol/L Normal 135-145 [facility] Comment on above: Performed By: #### U R_CS #### [facility] [address] [place] [address] Urea nitrogen [Mass/Vol] 21 mg/dL Normal 7-22 [facility] Comment on above: Performed By: #### U R_CS #### [facility] [employer] [address] [address] Basic metabolic 2000 panelon 06-08-2024 Calcium [Mass/Vol] 9.1 mg/dL 8.5 - 10. 5 mg/dL [facility] Comment on above: Performed at [facility] [address] [place] [address] Chloride [Moles/Vol] 102 mmol/L 98 - 11 1 meq/L [facility] CO2 [Moles/Vol] 21 mmol/L Low 23 - 33 meq/L [facility] Creatinine [Mass/Vol] 0.8 mg/dL 0.4 - 1.2 mg/dL [facility] Glucose [Mass/Vol] 91 mg/dL 70 - 108 mg/dL [facility] Potassium [Moles/Vol] 4.5 mmol/L 3.5 - 5.2 meq/L [facility] Comment on above: Low level specimen h emolysis is present as indicated by the interference level index on the Aldair analyzer. The reported K+ level may be falsely increased. If clinically warranted, recollection of the specimen is suggested. Sodium [Moles/Vol] 136 mmol/L 135 - 145 meq/L [facility] [employer] Urea nitrogen [Mass/Vol] 21 mg/dL 7 - 22 mg/dL [facility] CALCULATED OSMOLALITYon 05-26 Osmolality [Osmolality] 274.5 mosm/kg Low 275.0-300.0 [facility] Comment on above: Performed By: #### P CFLU #### [facility] [address] [place] [address] CBC WITH DIFFERENTIALon 05-26 ABS BASOPHILS 0.1 thou/mm3 Normal 0.0-0.1 [facility] Comment on above: Performed By: #### U R_CS #### [facility] [address] [place] [address] ABS EOSINOPHILS 0.5 thou/mm3 High 0.0-0.4 [facility] Comment on above: Performed By: #### U R_CS #### [facility] [address] [place] [address] ABS IMMATURE GRANS (IG) 0.02 thou/mm3 Normal 0.00-0.07 [facility] Comment on above: Performed By: #### U R_CS #### [address] [address] ABS LYMPHOCYTES 1.9 thou/mm3 Normal 1.0-4.8 [facility] Comment on above: Performed By: #### U R_CS #### [facility] [address] [place] [address] ABS MONOCYTES 0.6 thou/mm3 Normal 0.4-1.3 [facility] Comment on above: Performed By: #### U R_CS #### [facility] [address] [place] [address] ABS NEUTROPHILS 4.6 thou/mm3 Normal 1.8-7.7 [facility] Comment on above: Performed By: #### U R_CS #### [facility] [address] [place] [address] Basophils/100 WBC (Bld) 1.2 % Normal [facility] Comment on above: Performed By: #### U R_CS #### [facility] [address] [place] [address] Eosinophils/100 WBC (Bld) 6.8 % Normal [facility] Comment on above: Performed By: #### U R_CS #### [facility] [address] [place] [address] Erythrocyte distribution width (RBC) [Ratio] 12.9 % Normal 11.5-14.5 [facility] Comment on above: Performed By: #### U R_CS #### [address] [address] Hematocrit (Bld) [Volume fraction] 47.7 % Normal 42.0-52.0 [facility] Comment on above: Performed By: #### U R_CS #### [address] [address] Hemoglobin (Bld) [Mass/Vol] 16.4 g/dL Normal 14.0-18.0 [facility] Comment on above: Performed By: #### U R_CS #### [address] [address] IMMATURE GRANS (IG) 0.3 % Normal [facility] Comment on above: Performed By: #### U R_CS #### [address] [address] Lymphocytes/100 WBC (Bld) 24.7 % Normal [facility] Comment on above: Performed By: #### U R_CS #### [address] [address] MCH (RBC) [Entitic mass] 30.5 pg Normal 26.0-33.0 [facility] Comment on above: Performed By: #### U R_CS #### [address] [address] MCHC (RBC) [Mass/Vol] 34.4 g/dL Normal 32.2-35.5 [facility] Comment on above: Performed By: #### U R_CS #### [address] [address] MCV (RBC) [Entitic vol] 88.7 fL Normal 80.0-94.0 [facility] Comment on above: Performed By: #### U R_CS #### [address] [address] Monocytes/100 WBC (Bld) 7.8 % Normal [facility] Comment on above: Performed By: #### U R_CS #### [address] [address] Neutrophils/100 WBC (Bld) 59.2 % Normal [facility] Comment on above: Performed By: #### U R_CS #### [facility] [address] [place] [address] NRBC 0 /100 wbc Normal [facility] Comment on above: Performed By: #### U R_CS #### [facility] [address] [place] [address] PLATELET 230 thou/mm3 Normal 130-400 [facility] Comment on above: Performed By: #### U R_CS #### [facility] [address] [place] [address] Platelet mean volume (Bld) [Entitic vol] 9.7 fL Normal 9.4-12.4 [facility] Comment on above: Performed By: #### U R_CS #### [place] [address] RBC 5.38 mill/mm3 Normal 4.70-6.10 [facility] Comment on above: Performed By: #### U R_CS #### [address] [address] RDW-SD 41.7 fL Normal 35.0-45.0 [facility] Comment on above: Performed By: #### U R_CS #### [address] [address] WBC 7.7 thou/mm3 Normal 4.8-10.8 [facility] Comment on above: Performed By: #### U R_CS #### [facility] [address] [place] [address] CBC with Auto Differentialon 06-08-2024 Basophils (Bld) [#/Vol] 0.1 10*3/uL [facility] Eosinophils Absolute 0.5 High [facility] Erythrocyte distribution width (RBC) [Entitic vol] 41.7 fL 35.0 - 45.0 fL [facility] Immature granulocytes (Bld) [#/Vol] 0.02 10*3/uL [facility] Immature granulocytes/100 WBC (Bld) 0.3 % [facility] Interpretation and review of laboratory results Abnormal [facility] Lymphocytes Absolute 1.9 [facility] Monocytes Absolute 0.6 [facility] Neutrophils Absolute 4.6 [facility] Nucleated RBC/100 WBC (Bld) [Ratio] 0 % /100 wbc [facility] Comment on above: Performed at [facility] [address] [place] [address] Platelets (Bld) [#/Vol] 230 10*3/uL [facility] RBC (Bld) [#/Vol] 5.38 10*6/uL [facility] WBC (Bld) [#/Vol] 7.7 10*3/uL [facility] CKon 06-08-2024 CK [Catalytic activity/Vol] 207 U/L High 55 - 170 U/L [facility] Comment on above: Performed at [facility] [address] [place] [address] CK [Catalytic activity/Vol] 207 U/L High 55-170 [facility] Comment on above: Performed By: #### P CFLU #### [facility] [address] [place] [address] DRUG ABUSE SCREENon 06-08-20 24 AMPHETAMINE/METHAMPH Negative Normal NEGATIVE [facility] Comment on above: Performed By: #### T OXPN #### [facility] [address] [place] [address] BARBITURATE Negative Normal NEGATIVE [facility] Comment on above: Performed By: #### T OXPN #### [facility] [address] [place] [address] Benzodiazepines Ql (U) Positive Normal NEGATIVE [facility] Comment on above: Performed By: #### T OXPN #### [facility] [address] [place] [address] Cannabinoids Screen Ql (U) Positive Normal NEGATIVE [facility] Comment on above: Performed By: #### T OXPN #### [facility] [address] [place] [address] COCAINE METABOLITE Negative Normal NEGATIVE [facility] Comment on above: Performed By: #### T OXPN #### [address] [address] FENTANYL Negative Normal NEGATIVE [facility] Comment on above: Result Comment: A N egative result for a drug abuse screen test indicates that the drug concentration is below the following cutoffs: Amphetamine/Methamphetamine 1000 ng/ml Barbiturate 200 ng/ml Benzodiazapine 200 ng/ml Cannabinoids 50 ng/ml Cocaine Metabolite 300 ng/ml Opiates 300 ng/ml Oxycodone 100 ng/ml Phencyclidine 25 ng/ml Fentanyl 5 ng/ml A Positive result for a drug abuse screen test should be considered presumptive positive until/unless confirmed by another method. (Additional request) Quantitative values from a reference laboratory are available upon additional request. These results are for medical use only. Performed By: #### T OXPN #### [address] [address] Opiates Ql (U) Negative Normal NEGATIVE [facility] Comment on above: Performed By: #### T OXPN #### [facility] [address] [place] [address] OXYCODONE Negative Normal NEGATIVE [facility] Comment on above: Performed By: #### T OXPN #### [facility] [address] [place] [address] Phencyclidine Ql (U) Negative Normal NEGATIVE [facility] Comment on above: Performed By: #### T OXPN #### [address] [address] EKG 12-LEADon 06-08-2024 EKG 12-LEAD 89 89 152 86 364 442 50 30 39 Normal sinus rhythm Septal infarct (cited on or before 08-JUN-2024) Abnormal ECG When compared with ECG of 08-JUN-2024 13:54, No significant change was found Confirmed by STUART JERNIGAN ([id number]) on 06/11/2024 10:56:52 AM [email or web address] TestByDateTime?PatientID=0 [id number]&Date=08-06-2024&T arnoldo=[id number]&Test Type=ECG&Site=3&OutputType =PDF&Ext=PDF Normal [facility] EKG 12-LEAD 99 99 148 80 340 436 53 36 32 Normal sinus rhythm Septal infarct , age undetermined Abnormal ECG When compared with ECG of 02-FEB-2023 18:13, Septal infarct is now Present Nonspecific T wave abnormality is worse in Lateral leads Confirmed by STUART JERNIGAN ([id number]) on 06/11/2024 10:56:48 AM [email or web address] TestByDateTime?PatientID=0 [id number]&Date=08-06-2024&T arnoldo=[id number]&Test Type=ECG&Site=3&OutputType =PDF&Ext=PDF Normal [facility] ETHYL ALCOHOL BLOODon 2023 ETHYL ALCOHOL BLOOD < 0.01 Normal 0.00 [facility] Comment on above: Performed By: #### U R_CS #### [facility] [address] [place] [address] Ethanolon 06-08-2024 Ethanol [Mass/Vol] mg/dL 0.00 % [facility] Comment on above: Performed at [facility] [address] [place] [address] GFR, ESTIMATEDon 06-08-2024 GFR/1.73 sq M.predicted MDRD (S/P/Bld) [Vol rate/Area] mL/min/{1.73_m2} Normal >60 [facility] Comment on above: Pediatric calculator link https://www.kidney.org/professionals/kdoqi/gfr_calculatorped Effective Jul 28, 2022 These results are not intended for use in patients <18 years of age. eGFR results are calculated without a race factor using the 2020 CKD-EPI equation. Careful clinical correlation is recommended, particularly when comparing to results calculated using previous equations. The CKD-EPI equation is less accurate in patients with extremes of muscle mass, extra-renal metabolism of creatinine, excessive creatine ingestion, or following therapy that affects renal tubular secretion. Performed at [facility] [address] [place] [address] Result Comment: Yobani atric calculator link https://www.kidney.org/professionals/kdoqi/gfr_calculatorped Effective Jul 28, 2022 These results are not intended for use in patients <18 years of age. eGFR results are calculated without a race factor using the 2020 CKD-EPI equation. Careful clinical correlation is recommended, particularly when comparing to results calculated using previous equations. The CKD-EPI equation is less accurate in patients with extremes of muscle mass, extra-renal metabolism of creatinine, excessive creatine ingestion, or following therapy that affects renal tubular secretion. Performed By: #### P CFLU #### [facility] [address] [place] [address] HEPATIC FUNCTION PANELon Albumin [Mass/Vol] 4.0 g/dL Normal 3.5-5.1 [facility] Comment on above: Performed By: #### U R_CS #### [address] [address] ALP [Catalytic activity/Vol] 63 U/L Normal 38-126 [facility] Comment on above: Performed By: #### U R_CS #### [address] [address] ALT [Catalytic activity/Vol] 47 U/L Normal 11-66 [facility] Comment on above: Performed By: #### U R_CS #### [address] [address] AST [Catalytic activity/Vol] 30 U/L Normal 5-40 [facility] Comment on above: Performed By: #### U R_CS #### [address] [address] Bilirubin [Mass/Vol] 0.7 mg/dL Normal 0.3-1.2 [facility] Comment on above: Performed By: #### U R_CS #### [address] [address] Bilirubin.direct [Mass/Vol] 0.2 mg/dL Normal 0.1-13.8 [facility] Comment on above: Performed By: #### U R_CS #### [address] [address] Protein [Mass/Vol] 7.1 g/dL Normal 6.1-8.0 [facility] Comment on above: Performed By: #### U R_CS #### [facility] [address] [place] [address] HIGH SENSTIVITY TROPONINon 0 06-08-2024 HIGH SENSTIVITY TROPONIN 6 ng/L Normal 0-12 [facility] Comment on above: Result Comment: The high-sensitivity troponin T result should not be compared with other troponin methodologies. Rising or falling high-sensitivity troponin T is significant if >= 6. Performed By: #### U R_CS #### [facility] [address] [place] [address] Hepatic function 2000 panelo n 06-08-2024 Albumin BCG dye [Mass/Vol] 4.0 g/dL 3.5 - 5.1 g/dL [facility] ALP [Catalytic activity/Vol] 63 U/L 38 - 126 U/L [facility] XZERES ALT No additional P-5'-P [Catalytic activity/Vol] 47 U/L 11 - 66 U/L [facility] AST [Catalytic activity/Vol] 30 U/L 5 - 40 U/L [facility] Bilirubin [Mass/Vol] 0.7 mg/dL 0.3 - 1 .2 mg/dL [facility] Bilirubin.conjugated [Mass/Vol] 0.2 mg/dL 0.1 - 13.8 mg/dL [facility] Protein [Mass/Vol] 7.1 g/dL 6.1 - 8.0 g/dL [facility] Comment on above: Performed at [facility] [address] [place] [address] No Panel Informationon 06-08 Interpretation and review of laboratory results Abnormal [facility] Osmolalityon 06-08-2024 Osmolality Calc [Osmolality] 274.5 Low [facility] Comment on above: Performed at [facility] [address] [place] [address] SALICYLATEon 06-08-2024 SALICYLATE < 0.3 Low 2.0-10.0 [facility] Comment on above: Performed By: #### U R_CS #### [facility] [address] [place] [address] Salicylateon 06-08-2024 Salicylates [Mass/Vol] mg/dL Low 2.0 - 10.0 mg/dL [facility] Comment on above: Performed at [facility] [address] [place] [address] Troponinon 06-08-2024 Troponin, High Sensitivity 6 ng/L 0 - 12 ng/L [facility] Comment on above: The high-sensitivity troponin T result should not be compared with other troponin methodologies. Rising or falling high-sensitivity troponin T is significant if >= 6. Performed at [facility] [address] [place] [id number] [place] [address] URINE REFLEX C + Son 024 Bilirubin Ql (U) Negative Normal NEGATIVE [facility] Comment on above: Performed By: #### U R_CS #### [facility] [address] [place] [address] CHARACTER CLEAR Normal CLEAR-SL CLOUD [facility] Comment on above: Performed By: #### U R_CS #### [facility] [address] [place] [address] Color (U) YELLOW Normal STRAW-YELLOW [facility] Comment on above: Performed By: #### U R_CS #### [facility] [address] [place] [address] Glucose Ql (U) Negative Normal NEGATIVE [facility] Comment on above: Performed By: #### U R_CS #### [facility] [address] [place] [address] Hemoglobin Ql (U) Negative Normal NEGATIVE [facility] Comment on above: Performed By: #### U R_CS #### [facility] [address] [place] [address] Ketones Ql (U) Negative Normal NEGATIVE [facility] Comment on above: Performed By: #### U R_CS #### [facility] [address] [place] [address] LEUKOCYTES Negative Normal NEGATIVE [facility] Comment on above: Performed By: #### U R_CS #### [facility] [address] [place] [address] Nitrite Ql (U) Negative Normal NEGATIVE [facility] Comment on above: Performed By: #### U R_CS #### [facility] [address] [place] [address] pH (U) 5.5 [pH] Normal 5.0 - 9.0 [facility] Comment on above: Performed By: #### U R_CS #### [facility] [address] [place] [address] Protein Ql (U) Negative Normal NEGATIVE [facility] Comment on above: Performed By: #### U R_CS #### [facility] [address] [place] [address] Specific gravity (U) [Rel density] 1.023 Normal 1.002-1.030 [facility] Comment on above: Performed By: #### U R_CS #### [address] [address] Urobilinogen Qn (U) 0.2 {Philipp'U}/dL Normal 0.0 - 1. 0 [facility] Comment on above: Performed By: #### U R_CS #### [facility] [address] [address] Urinalysis dipstick W Reflex Culture panel (U)on 06-08-2024 Bilirubin Ql (U) Negative NEGATIVE [facility] Character (U) CLEAR CLEAR-SL CLOUD [facility] Comment on above: Performed at [facility] [address] [place] [address] Color, UA YELLOW STRAW-YELLOW [facility] Glucose Auto test strip Ql (U) Negative NEGATIVE mg/dl [facility] Hemoglobin Auto test strip Ql (U) Negative NEGATIVE [facility] Ketones Auto test strip Ql (U) Negative NEGATIVE [facility] Nitrite Ql (U) Negative NEGATIVE [facility] pH (U) 5.5 [pH] 5.0 - 9.0 [facility] Protein (U) [Mass/Vol] Negative NEGATIVE [facility] Specific gravity Refractometry automated (U) [Rel density] 1.023 1.002 - 1.030 [facility] Urobilinogen, Urine 0.2 [facility] WBC LM.HPF (Urine sed) [#/Area] Negative NEGATIVE [facility] Urine Drug Screenon 06-08-20 24 Amphetamines Screen Ql (U) Negative NEGATIVE [facility] Barbiturates Screen Ql (U) Negative NEGATIVE [facility] Benzodiazepines Ql (U) Positive NEGATIVE [facility] Benzoylecgonine Screen Ql (U) Negative NEGATIVE [facility] Cannabinoids Screen Ql (U) Positive NEGATIVE [facility] Fentanyl Negative NEGATIVE [facility] Comment on above: A Negative result for a drug abuse screen test indicates that the drug concentration is below the following cutoffs: Amphetamine/Methamphetamine 1000 ng/ml Barbiturate 200 ng/ml Benzodiazapine 200 ng/ml Cannabinoids 50 ng/ml Cocaine Metabolite 300 ng/ml Opiates 300 ng/ml Oxycodone 100 ng/ml Phencyclidine 25 ng/ml Fentanyl 5 ng/ml A Positive result for a drug abuse screen test should be considered presumptive positive until/unless confirmed by another method. (Additional request) Quantitative values from a reference laboratory are available upon additional request. These results are for medical use only. Performed at [facility] [address] [address] Opiates Screen Ql (U) Negative NEGATIVE [facility] Oxycodone Negative NEGATIVE [facility] Phencyclidine Ql (U) Negative NEGATIVE [facility] CBC AND AUTO DIFFon 06-07-20 24 ABSOLUTE BASOPHIL 0.0 X10E9/L Normal 0.0-0.2 [facility] Comment on above: Performed By: #### C BCA, CMP, 5643-2 #### [facility] ([id number]) [address] [place] [address] ABSOLUTE NEUTROPHIL 4.4 X10E9/L Normal 1.5-6.6 [facility] Comment on above: Performed By: #### C BCA, CMP, 5643-2 #### [facility] ([id number]) [address] [place] [address] Basophils/100 WBC (Bld) 0.3 % Normal [facility] Comment on above: Performed By: #### C SUSAN, CMP, 5643-2 #### [facility] ([id number]) [address] [place] [address] Eosinophils (Bld) [#/Vol] 0.4 10*3/uL Normal 0.0-0.4 [facility] Comment on above: Performed By: #### Domenic DAVIS, CMP, 5643-2 #### [facility] ([id number]) [address] [place] [address] Eosinophils/100 WBC (Bld) 4.9 % Normal [facility] Comment on above: Performed By: #### Domenic DAVIS, SYLVIA, 5643-2 #### [facility] ([id number]) [address] [place] [address] Erythrocyte distribution width (RBC) [Ratio] 13.5 % Normal 11.5-15.0 [facility] Comment on above: Performed By: #### Domenic DAVIS, CMP, 5643-2 #### [facility] ([id number]) [address] [place] [address] Hematocrit (Bld) [Volume fraction] 47.9 % Normal 39-49 [facility] Comment on above: Performed By: #### Domenic DAVIS, CMP, 5643-2 #### [facility] ([id number]) [address] [place] [address] Hemoglobin (Bld) [Mass/Vol] 16.9 g/dL Normal 13.0-17.0 [facility] Comment on above: Performed By: #### C SUSAN, CMP, 5643-2 #### [facility] ([id number]) [address] [place] [address] Lymphocytes (Bld) [#/Vol] 2.4 10*3/uL Normal 1.0-3.5 [facility] Comment on above: Performed By: #### Domenic DAVIS, CMP, 5643-2 #### [facility] ([id number]) [address] [place] [address] Lymphocytes/100 WBC (Bld) 30.2 % Normal [facility] Comment on above: Performed By: #### Domenic DAVIS CMP, 5643-2 #### [facility] ([id number]) [address] [place] [address] MCH (RBC) [Entitic mass] 31.3 pg Normal 27-34 [facility] Comment on above: Performed By: #### Domenic DAVIS CMP, 5643-2 #### [facility] ([id number]) [address] [place] [address] MCHC (RBC) [Mass/Vol] 35.3 g/dL Normal 32-36 [facility] Comment on above: Performed By: #### Domenic DAVIS CMP, 5643-2 #### [facility] ([id number]) [address] [place] [address] MCV (RBC) [Entitic vol] 89 fL Normal 80-100 [facility] Comment on above: Performed By: #### Domenic DAVIS CMP, 5643-2 #### [facility] ([id number]) [address] [place] [address] Monocytes (Bld) [#/Vol] 0.7 10*3/uL Normal 0-0.9 [facility] Comment on above: Performed By: #### Domenic DAVIS CMP, 5643-2 #### [facility] ([id number]) [address] [place] [address] Monocytes/100 WBC (Bld) 8.7 % Normal [facility] Comment on above: Performed By: #### Domenic DAVIS CMP, 5643-2 #### [facility] ([id number]) [address] [place] [address] Neutrophils/100 WBC (Bld) 55.9 % Normal [facility] Comment on above: Performed By: #### Domenic DAVIS CMP, 5643-2 #### [facility] ([id number]) [address] [place] [address] Platelet mean volume (Bld) [Entitic vol] 7.5 fL Normal 7-12 [facility] Comment on above: Performed By: #### Domenic DAVIS CMP, 5643-2 #### [facility] ([id number]) [address] [place] [address] Platelets (Bld) [#/Vol] 252 10*3/uL Normal 150-450 [facility] Comment on above: Performed By: #### Domenic DAVIS, CMP, 5643-2 #### [facility] ([id number]) [address] [place] [address] RBC COUNT 5.39 X10E12/L Normal 4.10-5.70 [facility] Comment on above: Performed By: #### Domenic DAVIS CMP, 5643-2 #### [facility] ([id number]) [address] [place] [address] WBC (Bld) [#/Vol] 7.9 10*3/uL Normal 4.0-11.0 [facility] Comment on above: Performed By: #### Domenic DAVIS CMP, 5643-2 #### [facility] ([id number]) [address] [facility] [place] [address] COMPREHENSIVE METABOLIC PANE Per 06-07-2024 Albumin [Mass/Vol] 4.3 g/dL Normal 3.2-5.3 [facility] Comment on above: Performed By: #### Domenic DAVIS, CMP, 5643-2 #### [facility] ([id number]) [address] [place] [address] ALP [Catalytic activity/Vol] 47 U/L Normal 39-130 [facility] Comment on above: Performed By: #### Domenic DAVIS, CMP, 5643-2 #### [facility] ([id number]) [address] [place] [address] ALT [Catalytic activity/Vol] 47 U/L High 0-40 [facility] Comment on above: Performed By: #### C SUSAN, CMP, 5643-2 #### [facility] ([id number]) [address] [facility] [address] Anion gap [Moles/Vol] 8 mmol/L Normal 5-15 [facility] Comment on above: Performed By: #### C SUSAN, CMP, 5643-2 #### [facility] ([id number]) [address] [facility] [place] [address] AST [Catalytic activity/Vol] 30 U/L Normal 0-41 [facility] Comment on above: Performed By: #### C SUSAN, CMP, 5643-2 #### [facility] ([id number]) [address] [facility] [place] [address] Bilirubin [Mass/Vol] 0.8 mg/dL Normal 0.3-1.2 [facility] Comment on above: Performed By: #### Domenic DAVIS, CMP, 5643-2 #### [facility] ([id number]) [address] [facility] [place] [address] Calcium [Mass/Vol] 9.4 mg/dL Normal 8.5-10.5 [facility] Comment on above: Performed By: #### C SUSAN, CMP, 5643-2 #### [facility] ([id number]) [address] [facility] [place] [address] Chloride [Moles/Vol] 103 mmol/L Normal 98-109 [facility] Comment on above: Performed By: #### C SUSAN, CMP, 5643-2 #### [facility] ([id number]) [address] [facility] [place] [address] CO2 [Moles/Vol] 24 mmol/L Normal 22-32 [facility] Comment on above: Performed By: #### C BCA, CMP, 5643-2 #### [facility] ([id number]) [address] [facility] [address] Creatinine [Mass/Vol] 0.86 mg/dL Normal 0.60-1.30 [facility] Comment on above: Result Comment: METH OD TRACEABLE TO IDMS STANDARD Performed By: #### C SYLVIA DAVIS, 5643-2 #### [facility] ([id number]) [address] [place] [address] eGFR (CKD-EPI) NON-RACE DEPENDENT >90 Normal >59 [facility] Comment on above: Result Comment: Reported eGFR is based on the CKD-EPI 2020 equation that does not use a race coefficient. Performed By: #### C SYLVIA DAVIS, 5643-2 #### [facility] ([id number]) [address] [place] [address] Glucose [Mass/Vol] 88 mg/dL Normal 65-99 [facility] Comment on above: Performed By: #### Domenic DAVIS CMP, 5643-2 #### [facility] ([id number]) [address] [place] [address] Potassium [Moles/Vol] 4.2 mmol/L Normal 3.5-5.0 [facility] Comment on above: Performed By: #### C SYLVIA DAVIS, 5643-2 #### [facility] ([id number]) [address] [place] [address] Protein [Mass/Vol] 6.9 g/dL Normal 6.0-8.0 [facility] Comment on above: Performed By: #### C SYLVIA DAVIS, 5643-2 #### [facility] ([id number]) [facility] [place] [address] Sodium [Moles/Vol] 135 mmol/L Normal 134-146 [facility] Comment on above: Performed By: #### C SYLVIA DAVIS, 5643-2 #### [facility] ([id number]) [facility] [place] [address] Urea nitrogen [Mass/Vol] 20 mg/dL Normal 5-23 [facility] Comment on above: Performed By: #### C SYLVIA DAVIS, 5643-2 #### [facility] ([id number]) [address] [place] [address] DRUG SCREEN, URINEon 024 AMPHETAMINE/METHAMP Negative Normal NEG [facility] Comment on above: Result Comment: AMPH /METH screening cut off = 1000 ng/mL Performed By: #### C BCA, BMP, 3298-7, 4024-6, 5643-2 #### [facility] ([id number]) [address] [place] [address] #### 24196-7 #### [facility] ([id number]) [address] [place] [address], [address] [place] [address] BARBITURATES Negative Normal NEG [facility] Comment on above: Result Comment: Yenifer iturates screening cut off value = 200 ng/mL Performed By: #### C BCA, BMP, 3298-7, 4024-6, 5643-2 #### [facility] ([id number]) [address] [place] [address] #### 73563-4 #### [facility] ([id number]) [address] [place] [address], [address] [place] [address] BENZODIAZEPINES Positive Abnormal NEG [facility] Comment on above: Result Comment: Conf irmation available upon request. Benzodiazepines screening cut off value = 200 ng/mL Performed By: #### C BCA, BMP, 3298-7, 4024-6, 5643-2 #### [facility] ([id number]) [address] [place] [address] #### 17051-5 #### [facility] ([id number]) [address] [place] [address], [address] [place] [address] CANNABINOIDS Positive Abnormal NEG [facility] Comment on above: Result Comment: Conf irmation available upon request. Cannabinoids/THC screening cut off value = 50 ng/mL Performed By: #### C BCA, BMP, 3298-7, 4024-6, 5643-2 #### [facility] ([id number]) [address] [place] [address] #### 73293-9 #### [facility] ([id number]) [facility], [address] [place] [address] COCAINE METABOLITE Negative Normal NEG [facility] Comment on above: Result Comment: Coca ine screening cut off value = 300 ng/mL Performed By: #### C BCA, BMP, 3298-7, 4024-6, 5643-2 #### [facility] ([id number]) [address] [place] [address] #### 99536-0 #### [facility] ([id number]) [address] [place] [address], [address] [place] [address] ECSTASY Negative Normal [facility] Comment on above: Result Comment: Ecst asy screening cut off value = 500 ng/mL This report is intended for use in clinical monitoring or management of patients. Performed By: #### C BCA, BMP, 3298-7, 4024-6, 5643-2 #### [facility] ([id number]) [address] [place] [address] #### 89846-0 #### [facility] ([id number]) [address] [place] [address], [address] [place] [address] METHADONE Negative Normal [facility] Comment on above: Result Comment: Meth adone screening cut off value = 300 ng/mL. Performed By: #### C BCA, BMP, 3298-7, 4024-6, 5643-2 #### [facility] ([id number]) [address] [place] [address] #### 91624-7 #### [facility] ([id number]) [address] [place] [address], [address] [place] [address] OPIATES Negative Normal NEG [facility] Comment on above: Result Comment: Opia rolando screening cut off value = 300 ng/mL NOTE: This test is used for the detection of codeine, hydrocodone (>1000 ng/mL), morphine and hydromorphone (>900 ng/mL) in urine. Performed By: #### C ANA DAVIS, 3298-7, 4024-6, 5643-2 #### [facility] ([id number]) [address] [place] [address] #### 78426-4 #### [facility] ([id number]) [facility], [address] [place] [address] OXYCODONE Negative Normal NEG [facility] Comment on above: Result Comment: Oxyc odone screening cut off value = 300 ng/mL NOTE: This test is used for the detection of oxycodone and oxymorphone in urine. Performed By: #### C SUSAN, ANA, 3298-7, 4024-6, 5643-2 #### [facility] ([id number]) [address] [place] [address] #### 50698-0 #### [facility] ([id number]) [address] [place] [address], [address] [place] [address] PHENCYCLIDINE Negative Normal NEG [facility] Comment on above: Result Comment: Phen cyclidine screening cut off value = 25 ng/mL Performed By: #### C ANA DAVIS, 3298-7, 4024-6, 5643-2 #### [facility] ([id number]) [address] [place] [address] #### 09393-8 #### [facility] ([id number]) [address] [place] [address], [address] [place] [address] ETHANOLon 06-07-2024 Ethanol [Mass/Vol] mg/dL Normal 0.00-0.08 [facility] Comment on above: Result Comment: This report is intended for use in clinical monitoring or management of patients. Performed By: #### C SUSAN, BMP, 3298-7, 4024-6, 5643-2 #### [facility] ([id number]) [address] [place], [place] [address] #### 31594-1 #### [facility] ([id number]) [address] [place] [address], [address] [place] [address] Inpatient Clinical Summaryon 06-07-2024 Inpatient Clinical Summary Normal [facility] Progress Note-Nurseon 2023 Progress Note-Nurse Normal [facility] Progress Note-Nurseon 2023 Progress Note-Nurse Normal [facility] Progress Note-Nurseon 2023 Progress Note-Nurse Normal [facility] Progress Note-Nurse Normal [facility] .Fentanyl Scrn wo Conf,Uron 06-04-2024 Ur Fentanyl Scrn Negative Normal NEG <1.0 [facility] Comment on above: Performed By: #### C D:[id number] ####[place] [address] Ur Fentanyl Scrn Qnt 0.19 ng/mL Normal <=0.99 [facility] Comment on above: Performed By: #### C D:[id number] ####[place] [address] .UA Microscp Aon 06-04-2024 UA Amorph Sed Present Abnormal Absent [facility] Comment on above: Performed By: #### . Urinalysis Microscopic Auto ####[address] [address] UA Mucus Present Normal Absent [facility] Comment on above: Performed By: #### . Urinalysis Microscopic Auto ####[address] [address] UA RBC Quant 0 /HPF Normal 0-5 [facility] Comment on above: Performed By: #### . Urinalysis Microscopic Auto ####[place] [address] UA Squepi Cells Quant <1 Normal 0-29 [facility] Comment on above: Performed By: #### . Urinalysis Microscopic Auto ####[place] [address] UA WBC Quant 1 /HPF Normal 0-5 [facility] Comment on above: Performed By: #### . Urinalysis Microscopic Auto ####[address] [address] .eGFRon 06-04-2024 GFR/1.73 sq M.predicted MDRD (S/P/Bld) [Vol rate/Area] mL/min/{1.73_m2} Normal >=60 [facility] Comment on above: Result Comment: [facility] have implemented the eGFR calculation approach that does not have a coefficient for race and that conforms to the NKF-ASN Task Force Recommendations.Stages of Chronic Kidney Disease GFRStage 3a Mild to moderate loss of kidney function 59 to 45Stage 3b Moderate to severe loss of kidney function 44 to 33Stage 4 Severe loss of kidney function 29 to 15Stage 5 Kidney failure Less than 15GFR calculated using the CKD-Epi Creatinine Equation (2020):eGFR = 142 X min(SCr/?, 1)? X max(SCr /?, 1)-1.200 X 0.9938Age X 1.012 [if female]Abbreviations/Units:eGFR (estimated glomerular filtration rate) = mL/min/1.73 m2SCr (standardized serum creatinine) = mg/dL? = 0.7 (females) or 0.9 (males)? = -0.241 (females) or -0.302 (males)min = indicates the minimum of SCr/? or 1max = indicates the maximum of SCr/? or 1Age = years Performed By: #### E GFR ####[address] [address] CBC w/ Diffon 06-04-2024 Erythrocyte distribution width (RBC) [Ratio] 13.7 % Normal 11.6-14.8 [facility] Comment on above: Performed By: #### C BC ####[address] [address] Hematocrit (Bld) [Volume fraction] 44.9 % Normal 41.0-53.0 [facility] Comment on above: Performed By: #### C BC ####[address] [address] Hemoglobin (Bld) [Mass/Vol] 15.4 g/dL Normal 13.5-17.5 [facility] Comment on above: Performed By: #### C BC ####[place] [id number] MCH (RBC) [Entitic mass] 31.1 pg Normal 27.0-35.0 [facility] Comment on above: Performed By: #### C BC ####[place] [address] MCHC 34.3 % Normal 31.0-37.0 [facility] Comment on above: Performed By: #### C BC ####[place] [id number] MCV (RBC) [Entitic vol] 90.8 fL Normal 80.0-100.0 [facility] Comment on above: Performed By: #### C BC ####[place] [id number] Platelet 228 x10*3/mcL Normal 150-450 [facility] Comment on above: Performed By: #### C BC ####[place] [id number] Platelet mean volume (Bld) [Entitic vol] 7.7 fL Normal 6.7-10.6 [facility] Comment on above: Performed By: #### C BC ####[place] [id number] RBC 4.95 x10*6/mcL Normal 4.30-5.80 [facility] Comment on above: Performed By: #### C BC ####[place] [id number] WBC 7.9 x10*3/mcL Normal 4.5-11.0 [facility] Comment on above: Performed By: #### C BC ####[place] [id number] CMPon 06-04-2024 Albumin [Mass/Vol] 3.8 g/dL Normal 3.2-4.9 [facility] Comment on above: Performed By: #### C OMP ####[address] [address] Albumin/Globulin [Mass ratio] 1.4 {ratio} Normal 1.1-2.2 [facility] Comment on above: Performed By: #### C OMP ####[address] [address] Alk Phos 51 IU/L Normal 32-91 [facility] Comment on above: Performed By: #### C OMP ####[address] [address] ALT [Catalytic activity/Vol] 37 U/L Normal 17-63 [facility] Comment on above: Performed By: #### C OMP ####[address] [address] Anion gap [Moles/Vol] 7 mmol/L Normal 4-12 [facility] Comment on above: Performed By: #### C OMP ####[address] [address] AST [Catalytic activity/Vol] 32 U/L Normal 15-41 [facility] Comment on above: Performed By: #### C OMP ####[address] [address] Bili Total 1.2 mg/dL Normal 0.3-1.2 [facility] Comment on above: Performed By: #### C OMP ####[address] [address] Calcium [Mass/Vol] 8.5 mg/dL Normal 8.5-10.3 [facility] Comment on above: Performed By: #### C OMP ####[address] [address] Chloride [Moles/Vol] 102 mmol/L Normal 98-110 [facility] Comment on above: Performed By: #### C OMP ####[address] [address] CO2 [Moles/Vol] 26 mmol/L Normal 22-32 [facility] Comment on above: Performed By: #### C OMP ####[address] [address] Creatinine [Mass/Vol] 0.83 mg/dL Normal 0.61-1.24 [facility] Comment on above: Performed By: #### C OMP ####[address] [address] Glucose [Mass/Vol] 116 mg/dL High 70-99 [facility] Comment on above: Performed By: #### C OMP ####[address] [address] Potassium [Moles/Vol] 4.3 mmol/L Normal 3.4-4.8 [facility] Comment on above: Performed By: #### C OMP ####[address] [address] Protein [Mass/Vol] 6.6 g/dL Normal 6.5-8.1 [facility] Comment on above: Performed By: #### C OMP ####[address] [address] Sodium [Moles/Vol] 135 mmol/L Normal 133-142 [facility] Comment on above: Performed By: #### C OMP ####[address] [address] Urea nitrogen [Mass/Vol] 19 mg/dL Normal 8-26 [facility] Comment on above: Performed By: #### C OMP ####[address] [address] Urea nitrogen/Creatinine [Mass ratio] 22.9 mg/mg High 10.0-20.0 [facility] Comment on above: Performed By: #### C OMP ####[address] [address] Diff Autoon 06-04-2024 Baso Absolute 0.0 x10*3/mcL Normal 0.0-0.2 [facility] Comment on above: Performed By: #### . Automated Diff ####[address] [address] Basophils/100 WBC (Bld) 0.4 % Normal 0.0-1.2 [facility] Comment on above: Performed By: #### . Automated Diff ####[address] [address] Eos Absolute 0.7 x10*3/mcL High 0.0-0.4 [facility] Comment on above: Performed By: #### . Automated Diff ####[address] [address] Eosinophils/100 WBC (Bld) 8.7 % High 0.0-6.1 [facility] Comment on above: Performed By: #### . Automated Diff ####[address] [address] Lymph Absolute 2.5 x10*3/mcL Normal 1.0-4.8 [facility] Comment on above: Performed By: #### . Automated Diff ####[address] [address] Lymphocytes/100 WBC (Bld) 31.0 % Normal 27.2-40.8 [facility] Comment on above: Performed By: #### . Automated Diff ####[address] [address] [place] Absolute 0.7 x10*3/mcL Normal 0.3-1.1 [facility] Comment on above: Performed By: #### . Automated Diff ####[address] [address] Monocytes/100 WBC (Bld) 8.6 % Normal 4.7-13.9 [facility] Comment on above: Performed By: #### . Automated Diff ####[address] [address] Neutro Absolute 4.1 x10*3/mcL Normal 1.8-7.7 [facility] Comment on above: Performed By: #### . Automated Diff ####[address] [address] Neutro Auto 51.3 % Normal 47.2-70.8 [facility] Comment on above: Performed By: #### . Automated Diff ####[address] [address] Direct LDLon 06-04-2024 Direct LDL Cholesterol 88 mg/dL Normal <=99 [facility] Comment on above: Result Comment: The optimal value of LDL for individual patients may vary.The patient's history of Artherosclerosis and other cardiacrisk factors should be considered. Performed By: #### L DLD ####[place] [id number] ED Clinical Summaryon 2023 ED Clinical Summary Normal [facility] ED Note-Nursingon 06-04-2024 ED Note-Nursing Normal [facility] ED Note-Physicianon 06-04-20 ED Note-Physician Normal [facility] Ethanolon 06-04-2024 Ethanol, Plasma <10 Normal <=9 [facility] Comment on above: Result Comment: To c onvert mg/dL to g/dL, divide result by 1,000. Legal limit of intoxication is 80 mg/dL (0.08 g/dL). Performed By: #### A LC ####[address] [address] Lipid Panelon 06-04-2024 Cholesterol in LDL [Mass/Vol] mg/dL Normal 0-99 [facility] Comment on above: Result Comment: Unab le to perform calculation due to a triglyceride result of >400. See direct measure LDL for result.The optimal value of LDL for individual patients may vary.The patient's history of Artherosclerosis and other cardiacrisk factors should be considered. Performed By: #### L CHACON ####[address] [address] Cardiac Risk 3.7 Normal [facility] Comment on above: Result Comment: Men Women1/2 Average 3.43 3.27Average 4.97 4.442x Average 9.55 7.053x Average 23.99 11.04 Performed By: #### L CHACON ####[place] [address] [place] [address] Cholesterol [Mass/Vol] 178 mg/dL Normal 25-199 [facility] Comment on above: Result Comment: 0 - 17 years of age:Desirable 0-170Borderline High 170-199High >=86134 years and older:Acceptable <200Borderline High 200-239High >=240 Performed By: #### L CHACON ####[address] [address] Cholesterol in HDL [Mass/Vol] 47.6 mg/dL Normal 40.0-60.0 [facility] Comment on above: Performed By: #### L CHACON ####[address] [address] Cholesterol in VLDL [Mass/Vol] 112 mg/dL High 8-39 [facility] Comment on above: Performed By: #### L CHACON ####[address] [address] Triglyceride [Mass/Vol] 561 mg/dL Normal [facility] Comment on above: Result Comment: 0 - 17 years of age:Trig 90 - 129 Borderline HighTrig => 130 High18 years and older:Trig 150 - 199 Borderline HighTrig 200 - 499 HighTrig =>500 Very High Performed By: #### L CHACON ####[address] [address] Progress Note-Nurseon 2023 Progress Note-Nurse Normal [facility] Progress Note-Nurse Normal [facility] TSHon 06-04-2024 TSH Qn 4.33 m[IU]/L Normal 0.45-5.33 [facility] Comment on above: Result Comment: Refe rence Ranges for individuals from to 18 years of age were obtained from The Paola Medina Handbook (20 ed) published by [facility].Reference Ranges for Females: Females, 1st Trimester 0.05 ? 3.7 uIU/mL Females, 2nd Trimester 0.31 ? 4.35 uIU/mL Females, 3rd Trimester 0.41 ? 5.18 uIU/mL Performed By: #### T SH ####[address] [address] UA w Culture if Indon 2023 Color (U) Light-Yellow Normal Yellow [facility] Comment on above: Performed By: #### U CI ####[address] [address] Ketones Ql (U) Negative Normal Negative [facility] Comment on above: Performed By: #### U CI ####[address] [address] UA Blood Negative Normal Negative [facility] Comment on above: Performed By: #### U CI ####[address] [address] UA Clarity Turbid Normal Clear [facility] Comment on above: Performed By: #### U CI ####[address] [address] UA Glucose Normal Normal Negative [facility] Comment on above: Performed By: #### U CI ####[address] [address] UA Leukocyte Esterase Negative Normal Negative [facility] Comment on above: Performed By: #### U CI ####[address] [address] UA Nitrite Negative Normal Negative [facility] Comment on above: Performed By: #### U CI ####[address] [address] UA pH 7.5 Normal 4.5 - 7.8 [facility] Comment on above: Performed By: #### U CI ####[address] [address] UA Protein Negative Normal Negative [facility] Comment on above: Performed By: #### U CI ####[address] [address] UA Source Clean Catch Normal [facility] Comment on above: Performed By: #### U CI ####[address] [address] UA Spec Grav 1.021 Normal 1.003-1.035 [facility] Comment on above: Performed By: #### U CI ####[address] [address] UA Urobilinogen Normal Normal 0.2 - 1.0 [facility] Comment on above: Performed By: #### U CI ####[address] [address] Urobilinogen (U) [Mass/Vol] Negative Normal Negative [facility] Comment on above: Performed By: #### U CI ####[address] [address] UDS Compon 06-04-2024 Creatinine [Mass/Vol] 93.1 mg/dL Normal [facility] Comment on above: Performed By: #### C [id number] ####[address] [address] Ur Amph Scrn Negative Normal NEG = <1000 [facility] Comment on above: Performed By: #### C [id number] ####[address] [address] Ur Yenifer Scrn Negative Normal NEG = <200 [facility] Comment on above: Performed By: #### C [id number] ####[address] [address] Ur Benzodia Scrn Positive Abnormal NEG = <200 [facility] Comment on above: Result Comment: This unconfirmed positive screening result is to be used for medical treatment purposes only. Unconfirmed screening results must not be used for non-medical purposes (e.g. employment testing, legal testing). Performed By: #### C [id number] ####[address] [address] Ur Cannab Scrn Positive Abnormal NEG = <50 [facility] Comment on above: Result Comment: This unconfirmed positive screening result is to be used for medical treatment purposes only. Unconfirmed screening results must not be used for non-medical purposes (e.g. employment testing, legal testing). Performed By: #### C [id number] ####[address] [address] Ur Cocaine Scrn Positive Abnormal NEG = <300 [facility] Comment on above: Result Comment: This unconfirmed positive screening result is to be used for medical treatment purposes only. Unconfirmed screening results must not be used for non-medical purposes (e.g. employment testing, legal testing). Performed By: #### C [id number] ####[address] [address] Ur Methadone Scn Negative Normal NEG = <300 [facility] Comment on above: Performed By: #### C [id number] ####[address] [address] Ur Opiate Scrn Negative Normal NEG = <300 [facility] Comment on above: Performed By: #### C [id number] ####[address] [address] Ur Oxy Screen Negative Normal NEG = <100 [facility] Comment on above: Performed By: #### C [id number] ####[address] [address] Ur Oxy Scrn Qnt 0 ng/mL Normal <=99 [facility] Comment on above: Performed By: #### C [id number] ####[address] [address] Ur PCP Scrn Negative Normal NEG = <25 [facility] Comment on above: Performed By: #### C [id number] ####[address] [address] UA pH 7.5 Normal 4.5 - 7.8 [facility] Comment on above: Performed By: #### C [id number] ####[place] [id number] UA Spec Grav 1.021 Normal 1.003-1.035 [facility] Comment on above: Performed By: #### C [id number] ####[address] [address] .eGFRon 06-02-2024 GFR/1.73 sq M.predicted MDRD (S/P/Bld) [Vol rate/Area] mL/min/{1.73_m2} Normal >=60 [facility] Comment on above: Result Comment: [facility] have implemented the eGFR calculation approach that does not have a coefficient for race and that conforms to the NKF-ASN Task Force Recommendations.Stages of Chronic Kidney Disease GFRStage 3a Mild to moderate loss of kidney function 59 to 45Stage 3b Moderate to severe loss of kidney function 44 to 33Stage 4 Severe loss of kidney function 29 to 15Stage 5 Kidney failure Less than 15GFR calculated using the CKD-Epi Creatinine Equation (2020):eGFR = 142 X min(SCr/?, 1)? X max(SCr /?, 1)-1.200 X 0.9938Age X 1.012 [if female]Abbreviations/Units:eGFR (estimated glomerular filtration rate) = mL/min/1.73 m2SCr (standardized serum creatinine) = mg/dL? = 0.7 (females) or 0.9 (males)? = -0.241 (females) or -0.302 (males)min = indicates the minimum of SCr/? or 1max = indicates the maximum of SCr/? or 1Age = years Performed By: #### E GFR ####[address] [address] CBC w/ Diffon 06-02-2024 Erythrocyte distribution width (RBC) [Ratio] 13.5 % Normal 11.6-14.8 [facility] Comment on above: Performed By: #### C BC ####[address] [address] Hematocrit (Bld) [Volume fraction] 46.9 % Normal 41.0-53.0 [facility] Comment on above: Performed By: #### C BC ####[address] [address] Hemoglobin (Bld) [Mass/Vol] 16.1 g/dL Normal 13.5-17.5 [facility] Comment on above: Performed By: #### C BC ####[address] [address] MCH (RBC) [Entitic mass] 30.9 pg Normal 27.0-35.0 [facility] Comment on above: Performed By: #### C BC ####[place] [id number] MCHC 34.3 % Normal 31.0-37.0 [facility] Comment on above: Performed By: #### C BC ####[place] [id number] MCV (RBC) [Entitic vol] 90.1 fL Normal 80.0-100.0 [facility] Comment on above: Performed By: #### C BC ####[address] [address] Platelet 246 x10*3/mcL Normal 150-450 [facility] Comment on above: Performed By: #### C BC ####[address] [address] Platelet mean volume (Bld) [Entitic vol] 7.7 fL Normal 6.7-10.6 [facility] Comment on above: Performed By: #### C BC ####[address] [address] RBC 5.20 x10*6/mcL Normal 4.30-5.80 [facility] Comment on above: Performed By: #### C BC ####[address] [address] WBC 6.7 x10*3/mcL Normal 4.5-11.0 [facility] Comment on above: Performed By: #### C BC ####[address] [address] CMPon 06-02-2024 Albumin [Mass/Vol] 3.7 g/dL Normal 3.2-4.9 [facility] Comment on above: Performed By: #### C OMP ####[address] [address] Albumin/Globulin [Mass ratio] 1.3 {ratio} Normal 1.1-2.2 [facility] Comment on above: Performed By: #### C OMP ####[address] [address] Alk Phos 46 IU/L Normal 32-91 [facility] Comment on above: Performed By: #### C OMP ####[address] [address] ALT [Catalytic activity/Vol] 41 U/L Normal 17-63 [facility] Comment on above: Performed By: #### C OMP ####[address] [address] Anion gap [Moles/Vol] 6 mmol/L Normal 4-12 [facility] Comment on above: Performed By: #### C OMP ####[address] [address] AST [Catalytic activity/Vol] 30 U/L Normal 15-41 [facility] Comment on above: Performed By: #### C OMP ####[address] [address] Bili Total 0.9 mg/dL Normal 0.3-1.2 [facility] Comment on above: Performed By: #### C OMP ####[address] [address] Calcium [Mass/Vol] 8.8 mg/dL Normal 8.5-10.3 [facility] Comment on above: Performed By: #### C OMP ####[address] [address] Chloride [Moles/Vol] 106 mmol/L Normal 98-110 [facility] Comment on above: Performed By: #### C OMP ####[address] [address] CO2 [Moles/Vol] 25 mmol/L Normal 22-32 [facility] Comment on above: Performed By: #### C OMP ####[address] [address] Creatinine [Mass/Vol] 0.82 mg/dL Normal 0.61-1.24 [facility] Comment on above: Performed By: #### C OMP ####[address] [address] Glucose [Mass/Vol] 89 mg/dL Normal 70-99 [facility] Comment on above: Performed By: #### C OMP ####[address] [address] Potassium [Moles/Vol] 4.2 mmol/L Normal 3.4-4.8 [facility] Comment on above: Performed By: #### C OMP ####[address] [address] Protein [Mass/Vol] 6.6 g/dL Normal 6.5-8.1 [facility] Comment on above: Performed By: #### C OMP ####[address] [address] Sodium [Moles/Vol] 137 mmol/L Normal 133-142 [facility] Comment on above: Performed By: #### C OMP ####[address] [address] Urea nitrogen [Mass/Vol] 17 mg/dL Normal 8-26 [facility] Comment on above: Performed By: #### C OMP ####[address] [address] Urea nitrogen/Creatinine [Mass ratio] 20.7 mg/mg High 10.0-20.0 [facility] Comment on above: Performed By: #### C OMP ####[address] [address] Diff Autoon 06-02-2024 Baso Absolute 0.1 x10*3/mcL Normal 0.0-0.2 [facility] Comment on above: Performed By: #### . Automated Diff ####[address] [address] Basophils/100 WBC (Bld) 2.0 % High 0.0-1.2 [facility] Comment on above: Performed By: #### . Automated Diff ####[address] [address] Eos Absolute 0.7 x10*3/mcL High 0.0-0.4 [facility] Comment on above: Performed By: #### . Automated Diff ####[address] [address] Eosinophils/100 WBC (Bld) 11.0 % High 0.0-6.1 [facility] Comment on above: Performed By: #### . Automated Diff ####[address] [address] Lymph Absolute 2.6 x10*3/mcL Normal 1.0-4.8 [facility] Comment on above: Performed By: #### . Automated Diff ####[address] [address] Lymphocytes/100 WBC (Bld) 38.5 % Normal 27.2-40.8 [facility] Comment on above: Performed By: #### . Automated Diff ####[address] [address] [place] Absolute 0.7 x10*3/mcL Normal 0.3-1.1 [facility] Comment on above: Performed By: #### . Automated Diff ####[address] [address] Monocytes/100 WBC (Bld) 10.7 % Normal 4.7-13.9 [facility] Comment on above: Performed By: #### . Automated Diff ####[address] [address] Neutro Absolute 2.5 x10*3/mcL Normal 1.8-7.7 [facility] Comment on above: Performed By: #### . Automated Diff ####[place] [id number] Neutro Auto 37.8 % Low 47.2-70.8 [facility] Comment on above: Performed By: #### . Automated Diff ####[place] [id number] Inpatient Clinical Summaryon 06-02-2024 Inpatient Clinical Summary Normal [facility] .eGFRon 06-01-2024 GFR/1.73 sq M.predicted MDRD (S/P/Bld) [Vol rate/Area] mL/min/{1.73_m2} Normal >=60 [facility] Comment on above: Result Comment: [facility] have implemented the eGFR calculation approach that does not have a coefficient for race and that conforms to the NKF-ASN Task Force Recommendations.Stages of Chronic Kidney Disease GFRStage 3a Mild to moderate loss of kidney function 59 to 45Stage 3b Moderate to severe loss of kidney function 44 to 33Stage 4 Severe loss of kidney function 29 to 15Stage 5 Kidney failure Less than 15GFR calculated using the CKD-Epi Creatinine Equation (2020):eGFR = 142 X min(SCr/?, 1)? X max(SCr /?, 1)-1.200 X 0.9938Age X 1.012 [if female]Abbreviations/Units:eGFR (estimated glomerular filtration rate) = mL/min/1.73 m2SCr (standardized serum creatinine) = mg/dL? = 0.7 (females) or 0.9 (males)? = -0.241 (females) or -0.302 (males)min = indicates the minimum of SCr/? or 1max = indicates the maximum of SCr/? or 1Age = years Performed By: #### E GFR ####[place] [id number] CBC w/ Diffon 06-01-2024 Erythrocyte distribution width (RBC) [Ratio] 13.4 % Normal 11.6-14.8 [facility] Comment on above: Performed By: #### C BC ####[place] [facility] [id number] [place] [address] Hematocrit (Bld) [Volume fraction] 45.5 % Normal 41.0-53.0 [facility] Comment on above: Performed By: #### C BC ####[address] [address] Hemoglobin (Bld) [Mass/Vol] 15.6 g/dL Normal 13.5-17.5 [facility] Comment on above: Performed By: #### C BC ####[address] [address] MCH (RBC) [Entitic mass] 31.0 pg Normal 27.0-35.0 [facility] Comment on above: Performed By: #### C BC ####[place] [id number] MCHC 34.2 % Normal 31.0-37.0 [facility] Comment on above: Performed By: #### C BC ####[place] [id number] MCV (RBC) [Entitic vol] 90.4 fL Normal 80.0-100.0 [facility] Comment on above: Performed By: #### C BC ####[address] [address] Platelet 223 x10*3/mcL Normal 150-450 [facility] Comment on above: Performed By: #### C BC ####[address] [address] Platelet mean volume (Bld) [Entitic vol] 7.4 fL Normal 6.7-10.6 [facility] Comment on above: Performed By: #### C BC ####[address] [address] RBC 5.03 x10*6/mcL Normal 4.30-5.80 [facility] Comment on above: Performed By: #### C BC ####[address] [address] WBC 5.9 x10*3/mcL Normal 4.5-11.0 [facility] Comment on above: Performed By: #### C BC ####[address] [address] CMPon 06-01-2024 Albumin [Mass/Vol] 3.6 g/dL Normal 3.2-4.9 [facility] Comment on above: Performed By: #### C OMP ####[address] [address] Albumin/Globulin [Mass ratio] 1.2 {ratio} Normal 1.1-2.2 [facility] Comment on above: Performed By: #### C OMP ####[address] [address] Alk Phos 46 IU/L Normal 32-91 [facility] Comment on above: Performed By: #### C OMP ####[address] [address] ALT [Catalytic activity/Vol] 35 U/L Normal 17-63 [facility] Comment on above: Performed By: #### C OMP ####[address] [address] Anion gap [Moles/Vol] 5 mmol/L Normal 4-12 [facility] Comment on above: Performed By: #### C OMP ####[address] [address] AST [Catalytic activity/Vol] 26 U/L Normal 15-41 [facility] Comment on above: Performed By: #### C OMP ####[address] [address] Bili Total 0.6 mg/dL Normal 0.3-1.2 [facility] Comment on above: Performed By: #### C OMP ####[address] [address] Calcium [Mass/Vol] 8.9 mg/dL Normal 8.5-10.3 [facility] Comment on above: Performed By: #### C OMP ####[address] [address] Chloride [Moles/Vol] 105 mmol/L Normal 98-110 [facility] Comment on above: Performed By: #### C OMP ####[address] [address] CO2 [Moles/Vol] 28 mmol/L Normal 22-32 [facility] Comment on above: Performed By: #### C OMP ####[address] [address] Creatinine [Mass/Vol] 0.92 mg/dL Normal 0.61-1.24 [facility] Comment on above: Performed By: #### C OMP ####[address] [address] Glucose [Mass/Vol] 99 mg/dL Normal 70-99 [facility] Comment on above: Performed By: #### C OMP ####[address] [address] Potassium [Moles/Vol] 4.6 mmol/L Normal 3.4-4.8 [facility] Comment on above: Performed By: #### C OMP ####[address] [address] Protein [Mass/Vol] 6.5 g/dL Normal 6.5-8.1 [facility] Comment on above: Performed By: #### C OMP ####[address] [address] Sodium [Moles/Vol] 138 mmol/L Normal 133-142 [facility] Comment on above: Performed By: #### C OMP ####[address] [address] Urea nitrogen [Mass/Vol] 16 mg/dL Normal 8-26 [facility] Comment on above: Performed By: #### C OMP ####[address] [address] Urea nitrogen/Creatinine [Mass ratio] 17.4 mg/mg Normal 10.0-20.0 [facility] Comment on above: Performed By: #### C OMP ####[address] [address] Diff Autoon 06-01-2024 Baso Absolute 0.3 x10*3/mcL High 0.0-0.2 [facility] Comment on above: Performed By: #### . Automated Diff ####[address] [address] Basophils/100 WBC (Bld) 4.7 % High 0.0-1.2 [facility] Comment on above: Performed By: #### . Automated Diff ####[address] [address] Eos Absolute 0.6 x10*3/mcL High 0.0-0.4 [facility] Comment on above: Performed By: #### . Automated Diff ####[address] [address] Eosinophils/100 WBC (Bld) 9.3 % High 0.0-6.1 [facility] Comment on above: Performed By: #### . Automated Diff ####[address] [address] Lymph Absolute 2.3 x10*3/mcL Normal 1.0-4.8 [facility] Comment on above: Performed By: #### . Automated Diff ####[address] [address] Lymphocytes/100 WBC (Bld) 39.3 % Normal 27.2-40.8 [facility] Comment on above: Performed By: #### . Automated Diff ####[address] [address] [place] Absolute 0.6 x10*3/mcL Normal 0.3-1.1 [facility] Comment on above: Performed By: #### . Automated Diff ####[address] [address] Monocytes/100 WBC (Bld) 10.3 % Normal 4.7-13.9 [facility] Comment on above: Performed By: #### . Automated Diff ####[address] [address] Neutro Absolute 2.2 x10*3/mcL Normal 1.8-7.7 [facility] Comment on above: Performed By: #### . Automated Diff ####[address] [address] Neutro Auto 36.4 % Low 47.2-70.8 [facility] Comment on above: Performed By: #### . Automated Diff ####[address] [address] .eGFRon 05-31-2024 GFR/1.73 sq M.predicted MDRD (S/P/Bld) [Vol rate/Area] mL/min/{1.73_m2} Normal >=60 [facility] Comment on above: Result Comment: [facility] have implemented the eGFR calculation approach that does not have a coefficient for race and that conforms to the NKF-ASN Task Force Recommendations.Stages of Chronic Kidney Disease GFRStage 3a Mild to moderate loss of kidney function 59 to 45Stage 3b Moderate to severe loss of kidney function 44 to 33Stage 4 Severe loss of kidney function 29 to 15Stage 5 Kidney failure Less than 15GFR calculated using the CKD-Epi Creatinine Equation (2020):eGFR = 142 X min(SCr/?, 1)? X max(SCr /?, 1)-1.200 X 0.9938Age X 1.012 [if female]Abbreviations/Units:eGFR (estimated glomerular filtration rate) = mL/min/1.73 m2SCr (standardized serum creatinine) = mg/dL? = 0.7 (females) or 0.9 (males)? = -0.241 (females) or -0.302 (males)min = indicates the minimum of SCr/? or 1max = indicates the maximum of SCr/? or 1Age = years Performed By: #### E GFR ####[address] [address] Amylaseon 05-31-2024 Amylase [Catalytic activity/Vol] 57 U/L Normal 28-100 [facility] Comment on above: Performed By: #### A MY ####[address] [address] B12/Folate Lvlon 05-31-2024 Cobalamin (Vitamin B12) [Mass/Vol] 453 pg/mL Normal 180-914 [facility] Comment on above: Performed By: #### B 12FO ####[address] [address] Folate Lvl 20.9 ng/mL Normal >=5.9 [facility] Comment on above: Result Comment: A [facility] Technical Consultation has determined that deficient Folate concentrations are considered to be less than 4 ng/mL. Performed By: #### B 12FO ####[address] [address] CBC w/ Diffon 05-31-2024 Erythrocyte distribution width (RBC) [Ratio] 13.6 % Normal 11.6-14.8 [facility] Comment on above: Performed By: #### C BC ####[address] [address] Hematocrit (Bld) [Volume fraction] 44.4 % Normal 41.0-53.0 [facility] Comment on above: Performed By: #### C BC ####[address] [address] Hemoglobin (Bld) [Mass/Vol] 15.1 g/dL Normal 13.5-17.5 [facility] Comment on above: Performed By: #### C BC ####[address] [address] MCH (RBC) [Entitic mass] 30.6 pg Normal 27.0-35.0 [facility] Comment on above: Performed By: #### C BC ####[address] [address] MCHC 34.0 % Normal 31.0-37.0 [facility] Comment on above: Performed By: #### C BC ####[address] [address] MCV (RBC) [Entitic vol] 90.1 fL Normal 80.0-100.0 [facility] Comment on above: Performed By: #### C BC ####[address] [address] Platelet 238 x10*3/mcL Normal 150-450 [facility] Comment on above: Performed By: #### C BC ####[address] [address] Platelet mean volume (Bld) [Entitic vol] 7.6 fL Normal 6.7-10.6 [facility] Comment on above: Performed By: #### C BC ####[address] [address] RBC 4.93 x10*6/mcL Normal 4.30-5.80 [facility] Comment on above: Performed By: #### C BC ####[address] [address] WBC 6.9 x10*3/mcL Normal 4.5-11.0 [facility] Comment on above: Performed By: #### C BC ####[address] [address] CMPon 05-31-2024 Albumin [Mass/Vol] 3.6 g/dL Normal 3.2-4.9 [facility] Comment on above: Performed By: #### C OMP ####[address] [address] Albumin/Globulin [Mass ratio] 1.3 {ratio} Normal 1.1-2.2 [facility] Comment on above: Performed By: #### C OMP ####[address] [address] Alk Phos 45 IU/L Normal 32-91 [facility] Comment on above: Performed By: #### C OMP ####[address] [address] ALT [Catalytic activity/Vol] 38 U/L Normal 17-63 [facility] Comment on above: Performed By: #### C OMP ####[address] [place] [address] Anion gap [Moles/Vol] 7 mmol/L Normal 4-12 [facility] Comment on above: Performed By: #### C OMP ####[address] [address] AST [Catalytic activity/Vol] 25 U/L Normal 15-41 [facility] Comment on above: Performed By: #### C OMP ####[address] [address] Bili Total 0.5 mg/dL Normal 0.3-1.2 [facility] Comment on above: Performed By: #### C OMP ####[address] [address] Calcium [Mass/Vol] 8.4 mg/dL Low 8.5-10.3 [facility] Comment on above: Performed By: #### C OMP ####[address] [address] Chloride [Moles/Vol] 106 mmol/L Normal 98-110 [facility] Comment on above: Performed By: #### C OMP ####[address] [address] CO2 [Moles/Vol] 25 mmol/L Normal 22-32 [facility] Comment on above: Performed By: #### C OMP ####[address] [address] Creatinine [Mass/Vol] 1.04 mg/dL Normal 0.61-1.24 [facility] Comment on above: Performed By: #### C OMP ####[address] [address] Glucose [Mass/Vol] 97 mg/dL Normal 70-99 [facility] Comment on above: Performed By: #### C OMP ####[address] [address] Potassium [Moles/Vol] 3.7 mmol/L Normal 3.4-4.8 [facility] Comment on above: Performed By: #### C OMP ####[address] [address] Protein [Mass/Vol] 6.4 g/dL Low 6.5-8.1 [facility] Comment on above: Performed By: #### C OMP ####[address] [address] Sodium [Moles/Vol] 138 mmol/L Normal 133-142 [facility] Comment on above: Performed By: #### C OMP ####[address] [address] Urea nitrogen [Mass/Vol] 11 mg/dL Normal 8-26 [facility] Comment on above: Performed By: #### C OMP ####[address] [address] Urea nitrogen/Creatinine [Mass ratio] 10.6 mg/mg Normal 10.0-20.0 [facility] Comment on above: Performed By: #### C OMP ####[address] [address] Diff Autoon 05-31-2024 Baso Absolute 0.1 x10*3/mcL Normal 0.0-0.2 [facility] Comment on above: Performed By: #### . Automated Diff ####[address] [address] Basophils/100 WBC (Bld) 1.8 % High 0.0-1.2 [facility] Comment on above: Performed By: #### . Automated Diff ####[address] [address] Eos Absolute 0.4 x10*3/mcL Normal 0.0-0.4 [facility] Comment on above: Performed By: #### . Automated Diff ####[address] [address] Eosinophils/100 WBC (Bld) 6.2 % High 0.0-6.1 [facility] Comment on above: Performed By: #### . Automated Diff ####[address] [address] Lymph Absolute 2.5 x10*3/mcL Normal 1.0-4.8 [facility] Comment on above: Performed By: #### . Automated Diff ####[address] [address] Lymphocytes/100 WBC (Bld) 36.5 % Normal 27.2-40.8 [facility] Comment on above: Performed By: #### . Automated Diff ####[address] [address] [place] Absolute 0.8 x10*3/mcL Normal 0.3-1.1 [facility] Comment on above: Performed By: #### . Automated Diff ####[address] [address] Monocytes/100 WBC (Bld) 11.0 % Normal 4.7-13.9 [facility] Comment on above: Performed By: #### . Automated Diff ####[address] [address] Neutro Absolute 3.1 x10*3/mcL Normal 1.8-7.7 [facility] Comment on above: Performed By: #### . Automated Diff ####[address] [address] Neutro Auto 44.5 % Low 47.2-70.8 [facility] Comment on above: Performed By: #### . Automated Diff ####[address] [address] Dir Indir Bilion 05-31-2024 Bili Direct 0.1 mg/dL Normal 0.1-0.5 [facility] Comment on above: Performed By: #### D /IBILI ####[address] [address] Bili Indirect 0.4 mg/dL Normal 0.0-1.0 [facility] Comment on above: Performed By: #### D /IBILI ####[address] [place] [address] ED Clinical Summaryon 2023 ED Clinical Summary Normal [facility] Ethanolon 05-31-2024 Ethanol, Plasma <10 Normal <=9 [facility] Comment on above: Result Comment: To c onvert mg/dL to g/dL, divide result by 1,000. Legal limit of intoxication is 80 mg/dL (0.08 g/dL). Performed By: #### A LC ####[place] [id number] Lipaseon 05-31-2024 Lipase Lvl 38 IU/L Normal 22-51 [facility] Comment on above: Performed By: #### L IP ####[place] [id number] Magnesiumon 05-31-2024 Magnesium [Mass/Vol] 1.9 mg/dL Normal 1.7-2.4 [facility] Comment on above: Performed By: #### M G ####[place] [id number] PTon 05-31-2024 INR Coag (PPP) [Relative time] 1.0 {INR} Normal <=3.5 [facility] Comment on above: Result Comment: INR has no normal range. INR Therapeutic range is:2.0-3.0 (AF, CVA, TIAs, DVT prophylaxis, acute DVT)2.5-3.5 ([facility] heart valves, recurrent thrombosis/emboli) Performed By: #### P TINR ####[place] [id number] PT Coag (PPP) [Time] 10.6 s Normal 9.2-12.0 [facility] Comment on above: Performed By: #### P TINR ####[place] [id number] Phosphoruson 05-31-2024 Phosphate [Mass/Vol] 4.6 mg/dL Normal 2.5-4.6 [facility] Comment on above: Performed By: #### P HOS ####[place] [address] .Fentanyl Scrn wo Conf,Uron 05-30-2024 Ur Fentanyl Scrn Negative Normal NEG <1.0 [facility] Comment on above: Performed By: #### C [id number] ####[place] [address] Ur Fentanyl Scrn Qnt 0.32 ng/mL Normal <=0.99 [facility] Comment on above: Performed By: #### C [id number] ####[place] [address] .UA Microscp Aon 05-30-2024 UA Mucus Present Normal Absent [facility] Comment on above: Performed By: #### . Urinalysis Microscopic Auto ####[place] [address] UA RBC Quant 0 /HPF Normal 0-5 [facility] Comment on above: Performed By: #### . Urinalysis Microscopic Auto ####[place] [address] UA Squepi Cells Quant <1 Normal 0-29 [facility] Comment on above: Performed By: #### . Urinalysis Microscopic Auto ####[place] [address] UA WBC Quant 2 /HPF Normal 0-5 [facility] Comment on above: Performed By: #### . Urinalysis Microscopic Auto ####[place] [address] .eGFRon 05-30-2024 GFR/1.73 sq M.predicted MDRD (S/P/Bld) [Vol rate/Area] mL/min/{1.73_m2} Normal >=60 [facility] Comment on above: Result Comment: [facility] have implemented the eGFR calculation approach that does not have a coefficient for race and that conforms to the NKF-ASN Task Force Recommendations.Stages of Chronic Kidney Disease GFRStage 3a Mild to moderate loss of kidney function 59 to 45Stage 3b Moderate to severe loss of kidney function 44 to 33Stage 4 Severe loss of kidney function 29 to 15Stage 5 Kidney failure Less than 15GFR calculated using the CKD-Epi Creatinine Equation (2020):eGFR = 142 X min(SCr/?, 1)? X max(SCr /?, 1)-1.200 X 0.9938Age X 1.012 [if female]Abbreviations/Units:eGFR (estimated glomerular filtration rate) = mL/min/1.73 m2SCr (standardized serum creatinine) = mg/dL? = 0.7 (females) or 0.9 (males)? = -0.241 (females) or -0.302 (males)min = indicates the minimum of SCr/? or 1max = indicates the maximum of SCr/? or 1Age = years Performed By: #### E GFR ####[place] [address] CBCon 05-30-2024 Erythrocyte distribution width (RBC) [Ratio] 13.5 % Normal 11.6-14.8 [facility] Comment on above: Performed By: #### C BCI ####[place] [address] Hematocrit (Bld) [Volume fraction] 47.2 % Normal 41.0-53.0 [facility] Comment on above: Performed By: #### C BCI ####[place] [address] Hemoglobin (Bld) [Mass/Vol] 15.8 g/dL Normal 13.5-17.5 [facility] Comment on above: Performed By: #### C BCI ####[place] [address] MCH (RBC) [Entitic mass] 30.4 pg Normal 27.0-35.0 [facility] Comment on above: Performed By: #### C BCI ####[place] [id number] MCHC 33.5 % Normal 31.0-37.0 [facility] Comment on above: Performed By: #### C BCI ####[place] [id number] MCV (RBC) [Entitic vol] 90.9 fL Normal 80.0-100.0 [facility] Comment on above: Performed By: #### C BCI ####[address] [address] Platelet 253 x10*3/mcL Normal 150-450 [facility] Comment on above: Performed By: #### C BCI ####[address] [address] Platelet mean volume (Bld) [Entitic vol] 7.4 fL Normal 6.7-10.6 [facility] Comment on above: Performed By: #### C BCI ####[address] [address] RBC 5.20 x10*6/mcL Normal 4.30-5.80 [facility] Comment on above: Performed By: #### C BCI ####[address] [address] WBC 7.4 x10*3/mcL Normal 4.5-11.0 [facility] Comment on above: Performed By: #### C BCI ####[address] [address] CMPon 05-30-2024 Albumin [Mass/Vol] 3.9 g/dL Normal 3.2-4.9 [facility] Comment on above: Performed By: #### C OMP ####[address] [address] Albumin/Globulin [Mass ratio] 1.3 {ratio} Normal 1.1-2.2 [facility] Comment on above: Performed By: #### C OMP ####[address] [address] Alk Phos 48 IU/L Normal 32-91 [facility] Comment on above: Performed By: #### C OMP ####[address] [address] ALT [Catalytic activity/Vol] 40 U/L Normal 17-63 [facility] Comment on above: Performed By: #### C OMP ####[address] [place] [address] Anion gap [Moles/Vol] 8 mmol/L Normal 4-12 [facility] Comment on above: Performed By: #### C OMP ####[address] [address] AST [Catalytic activity/Vol] 28 U/L Normal 15-41 [facility] Comment on above: Performed By: #### C OMP ####[address] [address] Bili Total 1.0 mg/dL Normal 0.3-1.2 [facility] Comment on above: Performed By: #### C OMP ####[address] [address] Calcium [Mass/Vol] 9.0 mg/dL Normal 8.5-10.3 [facility] Comment on above: Performed By: #### C OMP ####[address] [address] Chloride [Moles/Vol] 105 mmol/L Normal 98-110 [facility] Comment on above: Performed By: #### C OMP ####[address] [address] CO2 [Moles/Vol] 23 mmol/L Normal 22-32 [facility] Comment on above: Performed By: #### C OMP ####[address] [address] Creatinine [Mass/Vol] 0.89 mg/dL Normal 0.61-1.24 [facility] Comment on above: Performed By: #### C OMP ####[address] [address] Glucose [Mass/Vol] 117 mg/dL High 70-99 [facility] Comment on above: Performed By: #### C OMP ####[address] [address] Potassium [Moles/Vol] 3.4 mmol/L Normal 3.4-4.8 [facility] Comment on above: Performed By: #### C OMP ####[address] [address] Protein [Mass/Vol] 7.0 g/dL Normal 6.5-8.1 [facility] Comment on above: Performed By: #### C OMP ####[address] [address] Sodium [Moles/Vol] 136 mmol/L Normal 133-142 [facility] Comment on above: Performed By: #### C OMP ####[address] [address] Urea nitrogen [Mass/Vol] 10 mg/dL Normal 8-26 [facility] Comment on above: Performed By: #### C OMP ####[address] [address] Urea nitrogen/Creatinine [Mass ratio] 11.2 mg/mg Normal 10.0-20.0 [facility] Comment on above: Performed By: #### C OMP ####[address] [address] ED Note-Physicianon 05-30-20 24 ED Note-Physician Normal [facility] Ethanolon 05-30-2024 Ethanol, Plasma <10 Normal <=9 [facility] Comment on above: Result Comment: To c onvert mg/dL to g/dL, divide result by 1,000. Legal limit of intoxication is 80 mg/dL (0.08 g/dL). Performed By: #### A LC ####[address] [address] Fentanyl Scn without Confirm , Uron 05-30-2024 Ur Fentanyl Scrn Negative Normal NEG <1.0 [facility] Comment on above: Performed By: #### C [id number] ####[address] [address] Ur Fentanyl Scrn Qnt 0.34 ng/mL Normal <=0.99 [facility] Comment on above: Performed By: #### C [id number] ####[address] [place] [address] UA w Culture if Indon 2023 Color (U) Yellow Normal Yellow [facility] Comment on above: Performed By: #### U CI ####[address] [place] [address] Ketones Ql (U) Negative Normal Negative [facility] Comment on above: Performed By: #### U CI ####[address] [place] [address] UA Blood Negative Normal Negative [facility] Comment on above: Performed By: #### U CI ####[address] [place] [address] UA Clarity Clear Normal Clear [facility] Comment on above: Performed By: #### U CI ####[address] [place] [address] UA Glucose Normal Normal Negative [facility] Comment on above: Performed By: #### U CI ####[address] [place] [address] UA Leukocyte Esterase Negative Normal Negative [facility] Comment on above: Performed By: #### U CI ####[address] [place] [address] UA Nitrite Negative Normal Negative [facility] Comment on above: Performed By: #### U CI ####[address] [place] [address] UA pH 5.5 Normal 4.5 - 7.8 [facility] Comment on above: Performed By: #### U CI ####[address] [place] [address] UA Protein Negative Normal Negative [facility] Comment on above: Performed By: #### U CI ####[address] [place] [address] UA Source Clean Catch Normal [facility] Comment on above: Performed By: #### U CI ####[address] [place] [address] UA Spec Grav 1.023 Normal 1.003-1.035 [facility] Comment on above: Performed By: #### U CI ####[address] [address] UA Urobilinogen Normal Normal 0.2 - 1.0 [facility] Comment on above: Performed By: #### U CI ####[place] [id number] Urobilinogen (U) [Mass/Vol] Negative Normal Negative [facility] Comment on above: Performed By: #### U CI ####[place] [id number] UDS Compon 05-30-2024 Creatinine [Mass/Vol] 241.1 mg/dL Normal Bl [facility] Comment on above: Performed By: #### C [id number] ####[place] [id number] Ur Amph Scrn Positive Abnormal NEG = <1000 [facility] Comment on above: Result Comment: This unconfirmed positive screening result is to be used for medical treatment purposes only. Unconfirmed screening results must not be used for non-medical purposes (e.g. employment testing, legal testing). Performed By: #### C [id number] ####[address] [address] Ur Yenifer Scrn Negative Normal NEG = <200 [facility] Comment on above: Performed By: #### C [id number] ####[address] [address] Ur Benzodia Scrn Positive Abnormal NEG = <200 [facility] Comment on above: Result Comment: This unconfirmed positive screening result is to be used for medical treatment purposes only. Unconfirmed screening results must not be used for non-medical purposes (e.g. employment testing, legal testing). Performed By: #### C [id number] ####[address] [address] Ur Cannab Scrn Positive Abnormal NEG = <50 [facility] Comment on above: Result Comment: This unconfirmed positive screening result is to be used for medical treatment purposes only. Unconfirmed screening results must not be used for non-medical purposes (e.g. employment testing, legal testing). Performed By: #### C [id number] ####[address] [address] Ur Cocaine Scrn Negative Normal NEG = <300 [facility] Comment on above: Performed By: #### C [id number] ####[address] [address] Ur Methadone Scn Negative Normal NEG = <300 [facility] Comment on above: Performed By: #### C [id number] ####[address] [address] Ur Opiate Scrn Negative Normal NEG = <300 [facility] Comment on above: Performed By: #### C [id number] ####[address] [address] Ur Oxy Screen Negative Normal NEG = <100 [facility] Comment on above: Performed By: #### C [id number] ####[address] [address] Ur Oxy Scrn Qnt 3 ng/mL Normal <=99 [facility] Comment on above: Performed By: #### C [id number] ####[address] [address] Ur PCP Scrn Negative Normal NEG = <25 [facility] Comment on above: Performed By: #### C [id number] ####[address] [address] UA pH 5.5 Normal 4.5 - 7.8 [facility] Comment on above: Performed By: #### C [id number] ####[address] [address] UA Spec Grav 1.023 Normal 1.003-1.035 [facility] Comment on above: Performed By: #### C [id number] ####[facility] [place] [address] Alanine aminotransferase [En zymatic activity/volume] in Serum or PlasmaOrdered By: Parish Hay on 05-03-2024 ALT [Catalytic activity/Vol] 25 U/L Normal 7-52 [facility] Comment on above: Performed By: #### E SYLVIA BUTT, CBC #### [facility] [address] [place] [address] [place] Albumin [Mass/volume] in Ser um or Plasma by Bromocresol green (BCG) dye binding methoOrdered By: Parish Hay on 05-03-2024 Albumin BCG dye [Mass/Vol] 3.8 g/dL 3.5-5.7 [facility] Alkaline phosphatase [Enzyma tic activity/volume] in Serum or PlasmaOrdered By: Parish Hay on 05-03-2024 ALP [Catalytic activity/Vol] 45 U/L Normal 34-104 [facility] Comment on above: Performed By: #### E SYLVIA BUTT, CBC #### [facility] [address] Amphetamine Screen Ql (U)Ord ered By: Parish Hay on 05-03-2024 Amphetamines Ql (U) Positive High Negative [facility] Aspartate aminotransferase [ Enzymatic activity/volume] in Serum or PlasmaOrdered By: Parihs Hay on 05-03-2024 AST [Catalytic activity/Vol] 21 U/L Normal 13-39 [facility] Comment on above: Performed By: #### E DAQUAN CMP, CBC #### [facility] [address] [place] [id number] [place] Automated basophil %Ordered By: Parish Hay on 05-03-2024 Basophils/100 WBC (Bld) 0.4 % Normal . [facility] Comment on above: Performed By: #### E DAQUAN CMP, CBC #### [facility] [address] [place] [address] [place] Automated basophil countOrde red By: Parish Hay on 05-03-2024 Basophils (Bld) [#/Vol] 0.0 10*3/uL Normal 0.0-0.2 [facility] Comment on above: Result Comment: PERF ORMED BY: [place] [address] PATHOLOGIST [employer] SUPERVISOR ELSY PASCUAL M.D. Performed By: #### E DAQUAN CMP, CBC #### [address] Automated blood monocyte cou ntOrdered By: Parish Hay on 05-03-2024 Monocytes (Bld) [#/Vol] 0.6 10*3/uL Normal 0.0-0.8 [facility] Comment on above: Performed By: #### E DAQUAN, CMP, CBC #### [address] Automated eosinophil %Ordere d By: Parish Hay on 05-03-2024 Eosinophils/100 WBC (Bld) 6.6 % Normal . [facility] Comment on above: Performed By: #### E DAQUAN CMP, CBC #### [address] Automated eosinophil countOr dered By: Parish Hay on 05-03-2024 Eosinophils (Bld) [#/Vol] 0.4 10*3/uL Normal 0.0-0.45 [facility] Comment on above: Performed By: #### E DAQUAN, CMP, CBC #### [address] Automated monocyte %Ordered By: Parish Hay on 05-03-2024 Monocytes/100 WBC (Bld) 9.9 % Normal . [facility] Comment on above: Performed By: #### E DAQUAN, CMP, CBC #### [address] Automated neutrophil %Ordere d By: Parish Hay on 05-03-2024 Neutrophils/100 WBC (Bld) 48.2 % Normal . [facility] Comment on above: Performed By: #### E DAQUAN CMP, CBC #### [facility] [address] [place] [id number] [place] Barbiturates [Presence] in U rine by Screen methodOrdered By: Parish Hay on 05-03-2024 Barbiturates Screen Ql (U) Negative Negative [facility] Benzodiazepines Screen Ql (U )Ordered By: Parish Hay on 05-03-2024 Benzodiazepines Ql (U) Negative Negative [facility] Benzoylecgonine [Presence] i n Urine by Screen methodOrdered By: Parish Hay on 05-03-2024 Benzoylecgonine Screen Ql (U) Negative Negative [facility] Bilirubin Test strip Ql (U)O rdered By: Parish Hay on 05-03-2024 Bilirubin Ql (U) Negative Negative [facility] Bilirubin.total [Mass/volume ] in Serum or PlasmaOrdered By: Parish Hay on 05-03-2024 Bilirubin [Mass/Vol] 0.7 mg/dL Normal 0.3-1.0 [facility] Comment on above: Performed By: #### E SYLVIA BUTT, CBC #### [facility] [address] [id number] [place] Calcium [Mass/volume] in Ser um or PlasmaOrdered By: Parish Hay on 05-03-2024 Calcium [Mass/Vol] 9.1 mg/dL Normal 8.6-10.3 [facility] Comment on above: Performed By: #### E SYLVIA BUTT, CBC #### [facility] [address] [place] [id number] [place] Cannabinoids [Presence] in U rine by Screen methodOrdered By: Parish Hay on 05-03-2024 Cannabinoids Screen Ql (U) Positive High Negative [facility] Comment on above: These are unconfirme d results and should not be used for legal purposes. Drug Cut-Off Concentration: AMPH 1000 ng/mL YENIFER 200 ng/mL ROLF 200 ng/mL COCM 300 ng/mL OP 300 ng/mL PCP 25 ng/mL THC 20 ng/mL Carbon dioxide, total [Moles /volume] in Serum or PlasmaOrdered By: Parish Hay on 05-03-2024 CO2 [Moles/Vol] 23.8 mmol/L Normal 21.0-31.0 [facility] Comment on above: Performed By: #### E DAQUAN, CMP, CBC #### [address] Chloride [Moles/volume] in S yolis or PlasmaOrdered By: Parish aHy on 05-03-2024 Chloride [Moles/Vol] 109 mmol/L High 98-107 [facility] Comment on above: Performed By: #### E DAQUAN, CMP, CBC #### [address] Color of Urine by AutoOrdere d By: Parish Hay on 05-03-2024 Color (U) Yellow Normal Yellow [facility] Comment on above: Order Comment: Name Collection Type:: Clean-Voided Midstream Performed By: #### U RDS, UA #### [address] Complete Blood Count Auto Di ffon 05-03-2024 Mean Corpuscular HGB Conc 33.8 g/dL Normal 32.5-35.6 [facility] Comment on above: Performed By: #### E DAQUAN, CMP, CBC #### [place] [address] [place] Monocytes/100 WBC (Bld) 16.24 % Normal 0.00-20.00 [facility] Comment on above: Performed By: #### E DAQUAN, CMP, CBC #### [place] [address] [place] NRBC% 0.1 /100{WBC} Normal 0-0.5 [facility] Comment on above: Performed By: #### E DAQUAN, CMP, CBC #### [address] Comprehensive Metabolic Pane per 05-03-2024 Albumin [Mass/Vol] 3.8 g/dL Normal 3.5-5.7 [facility] Comment on above: Performed By: #### E DAQUAN, CMP, CBC #### [place] [address] [place] Creatinine Clr Calc Pharmacy 181.95 Normal [facility] Comment on above: Result Comment: PERF ORMED BY: [place] [address] PATHOLOGIST [employer] SUPERVISOR ELSY PASCUAL M.D. Performed By: #### E SYLVIA BUTT, CBC #### [address] GFR/1.73 sq M.predicted MDRD (S/P/Bld) [Vol rate/Area] mL/min/{1.73_m2} Normal [facility] Comment on above: Performed By: #### E SYLVIA BUTT, CBC #### [address] Creatinine [Mass/volume] in Serum or PlasmaOrdered By: Parish Hay on 05-03-2024 Creatinine [Mass/Vol] 0.74 mg/dL Normal 0.70-1.30 [facility] Comment on above: Performed By: #### E SYLVIA BUTT, CBC #### [place] [address] [place] Drug Screen,Urineon 05-03-20 24 Amphetamine Screen,Urine Positive High Negative [facility] Comment on above: Performed By: #### U RDS, UA #### [address] Barbiturate Screen,Urine Negative Normal Negative [facility] Comment on above: Performed By: #### U RDS, UA #### [place] [address] [place] Benzodiazepines Screen,Urine Negative Normal Negative [facility] Comment on above: Performed By: #### U RDS, UA #### [place] [address] [place] Cannabinoid Screen,Urine Positive High Negative [facility] Comment on above: Result Comment: Thes e are unconfirmed results and should not be used for legal purposes. Drug Cut-Off Concentration: AMPH 1000 ng/mL YENIFER 200 ng/mL ROLF 200 ng/mL COCM 300 ng/mL OP 300 ng/mL PCP 25 ng/mL THC 20 ng/mL PERFORMED BY: [place] [address] PATHOLOGIST [employer] SUPERVISOR ELSY PASCUAL M.D. Performed By: #### U RDS, UA #### [address] Cocaine Screen,Urine Negative Normal Negative [facility] Comment on above: Performed By: #### U RDS, UA #### [address] Opiate Screen,Urine Negative Normal Negative [facility] Comment on above: Performed By: #### U RDS, UA #### [address] Phencyclidine Screen,Urine Negative Normal Negative [facility] Comment on above: Performed By: #### U RDS, UA #### [address] Erythrocyte distribution wid th [Ratio] by Automated countOrdered By: Parish Hay on 05-03-2024 Erythrocyte distribution width (RBC) [Ratio] 13.9 % Normal 12.0-14.8 [facility] Comment on above: Performed By: #### E SYLVIA BUTT, CBC #### [address] Erythrocytes [#/volume] in B lood by Automated countOrdered By: Parish Hay on 05-03-2024 RBC (Bld) [#/Vol] 5.06 10*6/uL Normal 3.90-5.60 [facility] Comment on above: Performed By: #### E DAQUAN CMP, CBC #### [place] [address] [place] Ethanol [Mass/volume] in Ser um or PlasmaOrdered By: Parish Hay on 05-03-2024 Ethanol [Mass/Vol] mg/dL Normal [facility] Comment on above: Performed By: #### E DAQUAN CMP, CBC #### [place] [address] [place] Ethanol [Mass/Vol] TNP [facility] Comment on above: Test not performed Ethyl Alcohol Profileon Percent Ethanol Not performed Normal [facility] Comment on above: Result Comment: PERF ORMED BY: [facility] [address] [place] [address] PATHOLOGIST [employer] SUPERVISOR ELSY PASCUAL M.D. Performed By: #### E DAQUAN, CMP, CBC #### [facility] [address] [place] [id number] [place] Glucose [Mass/volume] in Ser um or PlasmaOrdered By: Parish Hay on 05-03-2024 Glucose [Mass/Vol] 109 mg/dL High 70-100 [facility] Comment on above: ADA recommended refe rence rangeRandom Glucose Reference Range is dependent on time and content of last meal. Glucose of more than 200 mg/dL in a nonstressed, ambulatory subject supports the diagnosis of Diabetes Mellitus. Result Comment: [place] om Glucose Reference Range is dependent on time and content of last meal. Glucose of more than 200 mg/dL in a nonstressed, ambulatory subject supports the diagnosis of Diabetes Mellitus. ADA recommended reference range Performed By: #### E DAQUAN, CMP, CBC #### [facility] [address] [place] [id number] [place] Glucose [Mass/volume] in Uri ne by Test stripOrdered By: Parish Hay on 05-03-2024 Glucose Test strip (U) [Mass/Vol] Normal mg/dL Normal [facility] Hematocrit [Volume Fraction] of Blood by Automated countOrdered By: Parish Hay on 05-03-2024 Hematocrit (Bld) [Volume fraction] 46.3 % Normal 38.8-50.0 [facility] Comment on above: Performed By: #### E DAQUAN, CMP, CBC #### [facility] [address] [id number] [place] Hemoglobin Test strip Ql (U) Ordered By: Parish Hay on 05-03-2024 Hemoglobin Ql (U) Negative Negative [facility] Hemoglobin [Mass/volume] in BloodOrdered By: Parish Hay on 05-03-2024 Hemoglobin (Bld) [Mass/Vol] 15.6 g/dL Normal 13.0-17.0 [facility] Comment on above: Performed By: #### E DAQUAN, CMP, CBC #### [facility] [address] [place] [address] [place] Ketones [Presence] in Urine by Test stripOrdered By: Parish Hay on 05-03-2024 Ketones Ql (U) Negative Normal Negative [facility] Comment on above: Order Comment: Name Collection Type:: Clean-Voided Midstream Performed By: #### U RDS, UA #### [facility] [address] [place] [address] [place] Leukocyte esterase [Presence ] in Urine by Test stripOrdered By: Parish Hay on 05-03-2024 Leukocyte esterase Test strip Ql (U) Negative Normal Negative [facility] Comment on above: Order Comment: Name Collection Type:: Clean-Voided Midstream Performed By: #### U RDS, UA #### [place] [address] [place] Leukocytes [#/volume] correc sherri for nucleated erythrocytes in Blood by Automated counOrdered By: Parish Hay on 05-03-2024 WBC corrected for nucl RBC Auto (Bld) [#/Vol] 6.3 10*3/uL 4.1-10.5 [facility] Leukocytes [#/volume] in Blo od by Automated countOrdered By: Parish Hay on 05-03-2024 WBC (Bld) [#/Vol] 6.3 10*3/uL Normal 4.1-10.5 [facility] Comment on above: Performed By: #### E DAQUAN CMP, CBC #### [facility] [address] [place] [address] [place] Lymphocytes [#/volume] in Bl ood by Automated countOrdered By: Parish Hay on 05-03-2024 Lymphocytes (Bld) [#/Vol] 2.2 10*3/uL Normal 1.00-4.8 [facility] Comment on above: Performed By: #### E DAQUAN, CMP, CBC #### [facility] [address] [place] [address] [place] Lymphocytes/100 leukocytes i n Blood by Automated countOrdered By: Parish Hay on 05-03-2024 Lymphocytes/100 WBC (Bld) 34.9 % Normal . [facility] Comment on above: Performed By: #### E SYLVIA BUTT, CBC #### [facility] [address] MCH [Entitic mass] by Automa sherri countOrdered By: Parish Hay on 05-03-2024 MCH (RBC) [Entitic mass] 30.9 pg Normal 27.5-35.2 [facility] Comment on above: Performed By: #### E SYLVIA BUTT, CBC #### [facility] [address] MCHC Auto (RBC) [Mass/Vol]Or dered By: Parish Hay on 05-03-2024 MCHC (RBC) [Mass/Vol] 33.8 g/dL 32.5-35.6 [facility] MCV [Entitic volume] by Auto mated countOrdered By: Parish Hay on 05-03-2024 MCV (RBC) [Entitic vol] 91.6 fL Normal 83.5-101 [facility] Comment on above: Performed By: #### E SYLVIA BUTT, CBC #### [facility] [address] Monocyte distribution width [Entitic volume] in Blood by AutomatedOrdered By: Parish Hay on 05-03-2024 Monocyte distribution width Auto (Bld) [Entitic vol] 16.24 % 0.00-20.00 [facility] Neutrophils [#/volume] in Bl ood by Automated countOrdered By: Parish Hay on 05-03-2024 Neutrophils (Bld) [#/Vol] 3.0 10*3/uL Normal 1.8-7.7 [facility] Comment on above: Performed By: #### E SYLVIA BUTT, CBC #### [facility] [address] [place] [address] Nitrite Test strip Ql (U)Ord ered By: Parish Hay on 05-03-2024 Nitrite Ql (U) Negative Negative [facility] No Panel InformationOrdered By: Parish Hay on 05-03-2024 Estimated GFR (CKD-EPI) > 60.0 mL/Min [facility] Creatinine Clearance (Chem 181.95 [facility] Nucleated erythrocytes [Pres ence] in Blood by Automated countOrdered By: Parish Hay on 05-03-2024 Nucleated RBC Auto Ql (Bld) 0.1 /100{WBC} 0-0.5 [facility] Opiates [Presence] in Urine by Screen methodOrdered By: Parish Hay on 05-03-2024 Opiates Screen Ql (U) Negative Negative [facility] Phencyclidine Screen Ql (U)O rdered By: Parish Hay on 05-03-2024 Phencyclidine Ql (U) Negative Negative [facility] Platelet mean volume [Entiti c volume] in Blood by Automated countOrdered By: Parish Hay on 05-03-2024 Platelet mean volume (Bld) [Entitic vol] 7.6 fL Normal 6.6-10.1 [facility] Comment on above: Performed By: #### E SYLVIA BUTT, CBC #### [facility] [address] Platelets [#/volume] in Bloo d by Automated countOrdered By: Parish Hay on 05-03-2024 Platelets (Bld) [#/Vol] 262 10*3/uL Normal 150-450 [facility] Comment on above: Performed By: #### E SYLVIA BUTT, CBC #### [facility] [address] [place] [address] [place] Potassium [Moles/volume] in Serum or PlasmaOrdered By: Parish Hay on 05-03-2024 Potassium [Moles/Vol] 3.9 mmol/L Normal 3.5-5.1 [facility] Comment on above: Performed By: #### E SYLVIA BUTT, CBC #### [facility] [address] Protein Test strip (U) [Mass /Vol]Ordered By: Parish Hay on 05-03-2024 Protein (U) [Mass/Vol] Negative Negative [facility] Protein [Mass/volume] in Ser um or PlasmaOrdered By: Parish Hay on 05-03-2024 Protein [Mass/Vol] 6.4 g/dL Normal 6.4-8.9 [facility] Comment on above: Performed By: #### E SYLVIA BUTT, CBC #### [address] Serum globulin measurement b y calculation (mass/volume)Ordered By: Parish Hay on 05-03-2024 Globulin (S) [Mass/Vol] 2.6 g/dL [facility] Comment on above: Performed By: #### E SYLVIA BUTT, CBC #### [address] Serum or plasma albumin/glob ulin mass ratioOrdered By: Parish Hay on 05-03-2024 Albumin/Globulin [Mass ratio] 1.5 {ratio} [facility] Comment on above: Performed By: #### E SYLVIA BUTT, CBC #### [address] Serum or plasma anion gap de terminationOrdered By: Parish Hay on 05-03-2024 Anion gap [Moles/Vol] 10.1 mmol/L Normal 6.0-15.0 [facility] Comment on above: Performed By: #### E SYLVIA BUTT, CBC #### [address] Sodium [Moles/volume] in Ser um or PlasmaOrdered By: Parish Hay on 05-03-2024 Sodium [Moles/Vol] 139 mmol/L Normal 136-145 [facility] Comment on above: Performed By: #### E SYLVIA BUTT, CBC #### [address] Specific gravity Test strip (U) [Rel density]Ordered By: Parish Hay on 05-03-2024 Specific gravity (U) [Rel density] 1.030 1.001-1.030 [facility] Urea nitrogen [Mass/volume] in Serum or PlasmaOrdered By: Parish Hay on 05-03-2024 Urea nitrogen [Mass/Vol] 12 mg/dL Normal 7-25 [facility] Comment on above: Performed By: #### E DAQUAN, CMP, CBC #### [address] Urinalysison 05-03-2024 Bilirubin,Urine Negative Normal Negative [facility] Comment on above: Order Comment: Name Collection Type:: Clean-Voided Midstream Performed By: #### U RDS, UA #### [address] Glucose Ql (U) Normal Normal Normal [facility] Comment on above: Order Comment: Name Collection Type:: Clean-Voided Midstream Performed By: #### U RDS, UA #### [place] [address] [place] Nitrite,Urine Negative Normal Negative [facility] Comment on above: Order Comment: Name Collection Type:: Clean-Voided Midstream Performed By: #### U RDS, UA #### [address] Occult Blood,Urine Negative Normal Negative [facility] Comment on above: Order Comment: Name Collection Type:: Clean-Voided Midstream Result Comment: PERF ORMED BY: [place] [address] PATHOLOGIST [employer] SUPERVISOR ELSY PASCUAL M.D. Performed By: #### U RDS, UA #### [place] [address] [place] Protein,Urine Negative Normal Negative [facility] Comment on above: Order Comment: Name Collection Type:: Clean-Voided Midstream Performed By: #### U RDS, UA #### [place] [address] [place] Specificy [place] [facility],Urine 1.030 Normal 1.001-1.030 [facility] Comment on above: Order Comment: Name Collection Type:: Clean-Voided Midstream Performed By: #### U RDS, UA #### [address] Urobilinogen,Urine Normal Normal Normal [facility] Comment on above: Order Comment: Name Collection Type:: Clean-Voided Midstream Performed By: #### U RDS, UA #### [facility] [address] Urine appearanceOrdered By: Parish Hay on 05-03-2024 Appearance (U) Clear Normal Clear [facility] Comment on above: Order Comment: Name Collection Type:: Clean-Voided Midstream Performed By: #### U RDS, UA #### [facility] [address] [place] [address] Urobilinogen Test strip (U) [Mass/Vol]Ordered By: Parish Hay on 05-03-2024 Urobilinogen (U) [Mass/Vol] Normal mg/dL Normal [facility] pH of Urine by Test stripOrd ered By: Parish Hay on 05-03-2024 pH (U) 5.5 [pH] Normal 5.0-9.0 [facility] Comment on above: Order Comment: Name Collection Type:: Clean-Voided Midstream Performed By: #### U RDS, UA #### [place] [id number] [place] Ur Amph Conf-[place] 04-16-20 24 Ur Amphetamines Interp-[place] Positive Normal [facility] Comment on above: Result Comment: ---- ADDITIONAL INFORMATION This report is intended for use in clinical monitoring andmanagement of patients. It is not intended for use inemployment-related testing.This test was developed and its performance characteristicsdetermined by [facility] in a manner consistent with CLIArequirements. This test has not been cleared or approved bythe U.S. Food and Drug Administration.Test Performed by:[place] [id number] Director: Alba Ahmadi Ph.D.; CLIA# [id number] Performed By: #### Domenic [id number] ####[facility] [id number] [place] [address] Ur Amphetamines-[place] 132 ng/mL Normal Cutoff: 25 [facility] Comment on above: Performed By: #### C [id number] ####[facility] [id number] [place] [address] Ur Ephedrine&Pseudo-[place] Negative Normal Cutoff: 25 [facility] Comment on above: Performed By: #### C [id number] ####[facility] [id number] [place] [address] Ur MDA (Ecstasy Metab)-[place] Negative Normal Cutoff: 25 [facility] Comment on above: Performed By: #### C [id number] ####[facility] [id number] [place] [address] Ur MDMA (Ecstasy)-[place] Negative Normal Cutoff: 25 [facility] Comment on above: Performed By: #### C [id number] ####[facility] [id number] [place] [address] Ur Methamphet-[place] 1316 ng/mL Normal Cutoff: 25 [facility] Comment on above: Performed By: #### C [id number] ####[facility] [id number] [place] [address] Ur Phentermine-[place] Negative Normal Cutoff: 25 [facility] Comment on above: Performed By: #### C [id number] ####[facility] [id number] [place] [address] C [place] 04-10-2024 C Wound Normal [facility] Comment on above: Performed By: #### W DC ####[facility] (DEFAULT)[address] [place], [place] [address] [facility] [place] [address] .eGFRon 04-09-2024 GFR/1.73 sq M.predicted MDRD (S/P/Bld) [Vol rate/Area] mL/min/{1.73_m2} Normal >=60 [facility] Comment on above: Result Comment: [facility] have implemented the eGFR calculation approach that does not have a coefficient for race and that conforms to the NKF-ASN Task Force Recommendations.Stages of Chronic Kidney Disease GFRStage 3a Mild to moderate loss of kidney function 59 to 45Stage 3b Moderate to severe loss of kidney function 44 to 33Stage 4 Severe loss of kidney function 29 to 15Stage 5 Kidney failure Less than 15GFR calculated using the CKD-Epi Creatinine Equation (2020):eGFR = 142 X min(SCr/?, 1)? X max(SCr /?, 1)-1.200 X 0.9938Age X 1.012 [if female]Abbreviations/Units:eGFR (estimated glomerular filtration rate) = mL/min/1.73 m2SCr (standardized serum creatinine) = mg/dL? = 0.7 (females) or 0.9 (males)? = -0.241 (females) or -0.302 (males)min = indicates the minimum of SCr/? or 1max = indicates the maximum of SCr/? or 1Age = years Performed By: #### E GFR ####[place] [address] CBC w/ Diffon 04-09-2024 Erythrocyte distribution width (RBC) [Ratio] 13.4 % Normal 11.6-14.8 [facility] Comment on above: Performed By: #### C BC ####[place] [id number] Hematocrit (Bld) [Volume fraction] 44.1 % Normal 41.0-53.0 [facility] Comment on above: Performed By: #### C BC ####[place] [id number] Hemoglobin (Bld) [Mass/Vol] 14.6 g/dL Normal 13.5-17.5 [facility] Comment on above: Performed By: #### C BC ####[address] [address] MCH (RBC) [Entitic mass] 30.2 pg Normal 27.0-35.0 [facility] Comment on above: Performed By: #### C BC ####[place] [id number] MCHC 33.0 % Normal 31.0-37.0 [facility] Comment on above: Performed By: #### C BC ####[address] [address] MCV (RBC) [Entitic vol] 91.5 fL Normal 80.0-100.0 [facility] Comment on above: Performed By: #### C BC ####[address] [address] Platelet 244 x10*3/mcL Normal 150-450 [facility] Comment on above: Performed By: #### C BC ####[address] [address] Platelet mean volume (Bld) [Entitic vol] 7.2 fL Normal 6.7-10.6 [facility] Comment on above: Performed By: #### C BC ####[address] [address] RBC 4.82 x10*6/mcL Normal 4.30-5.80 [facility] Comment on above: Performed By: #### C BC ####[address] [address] WBC 7.7 x10*3/mcL Normal 4.5-11.0 [facility] Comment on above: Performed By: #### C BC ####[address] [address] CMPon 04-09-2024 Albumin [Mass/Vol] 2.9 g/dL Low 3.2-4.9 [facility] Comment on above: Performed By: #### C OMP ####[address] [address] Albumin/Globulin [Mass ratio] 1.0 {ratio} Low 1.1-2.2 [facility] Comment on above: Performed By: #### C OMP ####[address] [address] Alk Phos 40 IU/L Normal 32-91 [facility] Comment on above: Performed By: #### C OMP ####[address] [address] ALT [Catalytic activity/Vol] 33 U/L Normal 17-63 [facility] Comment on above: Performed By: #### C OMP ####[address] [address] Anion gap [Moles/Vol] 7 mmol/L Normal 4-12 [facility] Comment on above: Performed By: #### C OMP ####[address] [address] AST [Catalytic activity/Vol] 20 U/L Normal 15-41 [facility] Comment on above: Performed By: #### C OMP ####[address] [address] Bili Total 0.4 mg/dL Normal 0.3-1.2 [facility] Comment on above: Performed By: #### C OMP ####[address] [address] Calcium [Mass/Vol] 8.4 mg/dL Low 8.5-10.3 [facility] Comment on above: Performed By: #### C OMP ####[address] [address] Chloride [Moles/Vol] 106 mmol/L Normal 98-110 [facility] Comment on above: Performed By: #### C OMP ####[address] [address] CO2 [Moles/Vol] 25 mmol/L Normal 22-32 [facility] Comment on above: Performed By: #### C OMP ####[address] [place] [address] Creatinine [Mass/Vol] 0.89 mg/dL Normal 0.61-1.24 [facility] Comment on above: Performed By: #### C OMP ####[address] [address] Glucose [Mass/Vol] 94 mg/dL Normal 70-99 [facility] Comment on above: Performed By: #### C OMP ####[address] [address] Potassium [Moles/Vol] 4.2 mmol/L Normal 3.4-4.8 [facility] Comment on above: Performed By: #### C OMP ####[address] [address] Protein [Mass/Vol] 5.9 g/dL Low 6.5-8.1 [facility] Comment on above: Performed By: #### C OMP ####[address] [address] Sodium [Moles/Vol] 138 mmol/L Normal 133-142 [facility] Comment on above: Performed By: #### C OMP ####[address] [address] Urea nitrogen [Mass/Vol] 19 mg/dL Normal 8-26 [facility] Comment on above: Performed By: #### C OMP ####[address] [address] Urea nitrogen/Creatinine [Mass ratio] 21.3 mg/mg High 10.0-20.0 [facility] Comment on above: Performed By: #### C OMP ####[address] [address] Diff Autoon 04-09-2024 Baso Absolute 0.1 x10*3/mcL Normal 0.0-0.2 [facility] Comment on above: Performed By: #### . Automated Diff ####[address] [address] Basophils/100 WBC (Bld) 1.0 % Normal 0.0-1.2 [facility] Comment on above: Performed By: #### . Automated Diff ####[address] [address] Eos Absolute 0.4 x10*3/mcL Normal 0.0-0.4 [facility] Comment on above: Performed By: #### . Automated Diff ####[address] [address] Eosinophils/100 WBC (Bld) 4.8 % Normal 0.0-6.1 [facility] Comment on above: Performed By: #### . Automated Diff ####[address] [address] Lymph Absolute 2.5 x10*3/mcL Normal 1.0-4.8 [facility] Comment on above: Performed By: #### . Automated Diff ####[address] [address] Lymphocytes/100 WBC (Bld) 32.1 % Normal 27.2-40.8 [facility] Comment on above: Performed By: #### . Automated Diff ####[place] [id number] [place] Absolute 0.7 x10*3/mcL Normal 0.3-1.1 [facility] Comment on above: Performed By: #### . Automated Diff ####[address] [address] Monocytes/100 WBC (Bld) 9.6 % Normal 4.7-13.9 [facility] Comment on above: Performed By: #### . Automated Diff ####[address] [address] Neutro Absolute 4.1 x10*3/mcL Normal 1.8-7.7 [facility] Comment on above: Performed By: #### . Automated Diff ####[place] [id number] Neutro Auto 52.5 % Normal 47.2-70.8 [facility] Comment on above: Performed By: #### . Automated Diff ####[place] [id number] Inpatient Clinical Summaryon 04-09-2024 Inpatient Clinical Summary Normal [facility] Magnesiumon 04-09-2024 Magnesium [Mass/Vol] 2.1 mg/dL Normal 1.7-2.4 [facility] Comment on above: Performed By: #### M G ####[address] [place] [address] Phosphoruson 04-09-2024 Phosphate [Mass/Vol] 3.8 mg/dL Normal 2.5-4.6 [facility] Comment on above: Performed By: #### P HOS ####[address] [address] Ur Carboxy-THC Conf-Mayoon 0 04-09-2024 Ur Carboxy-THC Interp-Armstrong Positive Normal [facility] Comment on above: Result Comment: ---- ADDITIONAL INFORMATION This report is intended for use in clinical monitoring andmanagement of patients. It is not intended for use inemployment-related testing.This test was developed and its performance characteristicsdetermined by [facility] in a manner consistent with CLIArequirements. This test has not been cleared or approved bythe U.S. Food and Drug Administration.Test Performed by:[place], [place] [address]Lab Director: Alba Ahmadi Ph.D.; CLIA# [id number] Performed By: #### C [id number] ####[facility] [place] [address] Ur Delta-8 Gdkootl-VEX-Gfir 76 ng/mL Normal Cutoff: 5 [facility] Comment on above: Performed By: #### C [id number] ####[facility] [place] [address] Ur Delta-9 Itikeuu-QSN-Eqyk 134 ng/mL Normal Cutoff: 5 [facility] Comment on above: Performed By: #### C [id number] ####[facility] [address] .eGFRon 04-08-2024 GFR/1.73 sq M.predicted MDRD (S/P/Bld) [Vol rate/Area] mL/min/{1.73_m2} Normal >=60 [facility] Comment on above: Result Comment: [facility] have implemented the eGFR calculation approach that does not have a coefficient for race and that conforms to the NKF-ASN Task Force Recommendations.Stages of Chronic Kidney Disease GFRStage 3a Mild to moderate loss of kidney function 59 to 45Stage 3b Moderate to severe loss of kidney function 44 to 33Stage 4 Severe loss of kidney function 29 to 15Stage 5 Kidney failure Less than 15GFR calculated using the CKD-Epi Creatinine Equation (2020):eGFR = 142 X min(SCr/?, 1)? X max(SCr /?, 1)-1.200 X 0.9938Age X 1.012 [if female]Abbreviations/Units:eGFR (estimated glomerular filtration rate) = mL/min/1.73 m2SCr (standardized serum creatinine) = mg/dL? = 0.7 (females) or 0.9 (males)? = -0.241 (females) or -0.302 (males)min = indicates the minimum of SCr/? or 1max = indicates the maximum of SCr/? or 1Age = years Performed By: #### E GFR ####[place] [address] CBC w/ Diffon 04-08-2024 Erythrocyte distribution width (RBC) [Ratio] 13.4 % Normal 11.6-14.8 [facility] Comment on above: Performed By: #### C BC ####[place] [id number] Hematocrit (Bld) [Volume fraction] 46.0 % Normal 41.0-53.0 [facility] Comment on above: Performed By: #### C BC ####[place] [id number] Hemoglobin (Bld) [Mass/Vol] 15.4 g/dL Normal 13.5-17.5 [facility] Comment on above: Performed By: #### C BC ####[place] [id number] MCH (RBC) [Entitic mass] 30.8 pg Normal 27.0-35.0 [facility] Comment on above: Performed By: #### C BC ####[place] [id number] MCHC 33.4 % Normal 31.0-37.0 [facility] Comment on above: Performed By: #### C BC ####[address] [address] MCV (RBC) [Entitic vol] 92.0 fL Normal 80.0-100.0 [facility] Comment on above: Performed By: #### C BC ####[address] [address] Platelet 252 x10*3/mcL Normal 150-450 [facility] Comment on above: Performed By: #### C BC ####[address] [address] Platelet mean volume (Bld) [Entitic vol] 7.7 fL Normal 6.7-10.6 [facility] Comment on above: Performed By: #### C BC ####[address] [address] RBC 5.00 x10*6/mcL Normal 4.30-5.80 [facility] Comment on above: Performed By: #### C BC ####[address] [address] WBC 8.0 x10*3/mcL Normal 4.5-11.0 [facility] Comment on above: Performed By: #### C BC ####[address] [address] CMPon 04-08-2024 Albumin [Mass/Vol] 3.1 g/dL Low 3.2-4.9 [facility] Comment on above: Performed By: #### C OMP ####[address] [address] Albumin/Globulin [Mass ratio] 1.0 {ratio} Low 1.1-2.2 [facility] Comment on above: Performed By: #### C OMP ####[address] [address] Alk Phos 43 IU/L Normal 32-91 [facility] Comment on above: Performed By: #### C OMP ####[address] [address] ALT [Catalytic activity/Vol] 41 U/L Normal 17-63 [facility] Comment on above: Performed By: #### C OMP ####[address] [address] Anion gap [Moles/Vol] 6 mmol/L Normal 4-12 [facility] Comment on above: Performed By: #### C OMP ####[address] [address] AST [Catalytic activity/Vol] 23 U/L Normal 15-41 [facility] Comment on above: Performed By: #### C OMP ####[address] [address] Bili Total 0.5 mg/dL Normal 0.3-1.2 [facility] Comment on above: Performed By: #### C OMP ####[address] [address] Calcium [Mass/Vol] 8.4 mg/dL Low 8.5-10.3 [facility] Comment on above: Performed By: #### C OMP ####[address] [address] Chloride [Moles/Vol] 106 mmol/L Normal 98-110 [facility] Comment on above: Performed By: #### C OMP ####[address] [address] CO2 [Moles/Vol] 25 mmol/L Normal 22-32 [facility] Comment on above: Performed By: #### C OMP ####[address] [address] Creatinine [Mass/Vol] 0.75 mg/dL Normal 0.61-1.24 [facility] Comment on above: Performed By: #### C OMP ####[address] [address] Glucose [Mass/Vol] 98 mg/dL Normal 70-99 [facility] Comment on above: Performed By: #### C OMP ####[address] [address] Potassium [Moles/Vol] 4.0 mmol/L Normal 3.4-4.8 [facility] Comment on above: Performed By: #### C OMP ####[address] [address] Protein [Mass/Vol] 6.2 g/dL Low 6.5-8.1 [facility] Comment on above: Performed By: #### C OMP ####[address] [address] Sodium [Moles/Vol] 137 mmol/L Normal 133-142 [facility] Comment on above: Performed By: #### C OMP ####[address] [address] Urea nitrogen [Mass/Vol] 16 mg/dL Normal 8-26 [facility] Comment on above: Performed By: #### C OMP ####[address] [address] Urea nitrogen/Creatinine [Mass ratio] 21.3 mg/mg High 10.0-20.0 [facility] Comment on above: Performed By: #### C OMP ####[address] [address] Diff Autoon 04-08-2024 Baso Absolute 0.1 x10*3/mcL Normal 0.0-0.2 [facility] Comment on above: Performed By: #### . Automated Diff ####[address] [address] Basophils/100 WBC (Bld) 1.3 % High 0.0-1.2 [facility] Comment on above: Performed By: #### . Automated Diff ####[address] [address] Eos Absolute 0.2 x10*3/mcL Normal 0.0-0.4 [facility] Comment on above: Performed By: #### . Automated Diff ####[address] [address] Eosinophils/100 WBC (Bld) 2.8 % Normal 0.0-6.1 [facility] Comment on above: Performed By: #### . Automated Diff ####[address] [address] Lymph Absolute 2.5 x10*3/mcL Normal 1.0-4.8 [facility] Comment on above: Performed By: #### . Automated Diff ####[address] [address] Lymphocytes/100 WBC (Bld) 31.7 % Normal 27.2-40.8 [facility] Comment on above: Performed By: #### . Automated Diff ####[address] [address] [place] Absolute 0.7 x10*3/mcL Normal 0.3-1.1 [facility] Comment on above: Performed By: #### . Automated Diff ####[address] [address] Monocytes/100 WBC (Bld) 8.9 % Normal 4.7-13.9 [facility] Comment on above: Performed By: #### . Automated Diff ####[address] [address] Neutro Absolute 4.5 x10*3/mcL Normal 1.8-7.7 [facility] Comment on above: Performed By: #### . Automated Diff ####[address] [address] Neutro Auto 55.3 % Normal 47.2-70.8 [facility] Comment on above: Performed By: #### . Automated Diff ####[address] [address] Magnesiumon 04-08-2024 Magnesium [Mass/Vol] 2.1 mg/dL Normal 1.7-2.4 [facility] Comment on above: Performed By: #### M G ####[address] [address] Phosphoruson 04-08-2024 Phosphate [Mass/Vol] 3.4 mg/dL Normal 2.5-4.6 [facility] Comment on above: Performed By: #### P HOS ####[address] [address] .eGFRon 04-07-2024 GFR/1.73 sq M.predicted MDRD (S/P/Bld) [Vol rate/Area] mL/min/{1.73_m2} Normal >=60 [facility] Comment on above: Result Comment: [facility] have implemented the eGFR calculation approach that does not have a coefficient for race and that conforms to the NKF-ASN Task Force Recommendations.Stages of Chronic Kidney Disease GFRStage 3a Mild to moderate loss of kidney function 59 to 45Stage 3b Moderate to severe loss of kidney function 44 to 33Stage 4 Severe loss of kidney function 29 to 15Stage 5 Kidney failure Less than 15GFR calculated using the CKD-Epi Creatinine Equation (2020):eGFR = 142 X min(SCr/?, 1)? X max(SCr /?, 1)-1.200 X 0.9938Age X 1.012 [if female]Abbreviations/Units:eGFR (estimated glomerular filtration rate) = mL/min/1.73 m2SCr (standardized serum creatinine) = mg/dL? = 0.7 (females) or 0.9 (males)? = -0.241 (females) or -0.302 (males)min = indicates the minimum of SCr/? or 1max = indicates the maximum of SCr/? or 1Age = years Performed By: #### E GFR ####[address] [address] CBC w/ Diffon 04-07-2024 Erythrocyte distribution width (RBC) [Ratio] 13.2 % Normal 11.6-14.8 [facility] Comment on above: Performed By: #### C BC ####[address] [address] Hematocrit (Bld) [Volume fraction] 48.1 % Normal 41.0-53.0 [facility] Comment on above: Performed By: #### C BC ####[address] [address] Hemoglobin (Bld) [Mass/Vol] 15.8 g/dL Normal 13.5-17.5 [facility] Comment on above: Performed By: #### C BC ####[address] [address] MCH (RBC) [Entitic mass] 30.2 pg Normal 27.0-35.0 [facility] Comment on above: Performed By: #### C BC ####[address] [address] MCHC 32.8 % Normal 31.0-37.0 [facility] Comment on above: Performed By: #### C BC ####[address] [address] MCV (RBC) [Entitic vol] 92.1 fL Normal 80.0-100.0 [facility] Comment on above: Performed By: #### C BC ####[address] [address] Platelet 259 x10*3/mcL Normal 150-450 [facility] Comment on above: Performed By: #### C BC ####[address] [address] Platelet mean volume (Bld) [Entitic vol] 7.5 fL Normal 6.7-10.6 [facility] Comment on above: Performed By: #### C BC ####[address] [address] RBC 5.22 x10*6/mcL Normal 4.30-5.80 [facility] Comment on above: Performed By: #### C BC ####[address] [address] WBC 7.6 x10*3/mcL Normal 4.5-11.0 [facility] Comment on above: Performed By: #### C BC ####[address] [place] [address] CMPon 04-07-2024 Albumin [Mass/Vol] 3.2 g/dL Normal 3.2-4.9 [facility] Comment on above: Performed By: #### C OMP ####[address] [address] Albumin/Globulin [Mass ratio] 1.0 {ratio} Low 1.1-2.2 [facility] Comment on above: Performed By: #### C OMP ####[address] [address] Alk Phos 43 IU/L Normal 32-91 [facility] Comment on above: Performed By: #### C OMP ####[address] [address] ALT [Catalytic activity/Vol] 50 U/L Normal 17-63 [facility] Comment on above: Performed By: #### C OMP ####[address] [address] Anion gap [Moles/Vol] 6 mmol/L Normal 4-12 [facility] Comment on above: Performed By: #### C OMP ####[address] [address] AST [Catalytic activity/Vol] 33 U/L Normal 15-41 [facility] Comment on above: Performed By: #### C OMP ####[address] [address] Bili Total 0.8 mg/dL Normal 0.3-1.2 [facility] Comment on above: Performed By: #### C OMP ####[address] [address] Calcium [Mass/Vol] 8.5 mg/dL Normal 8.5-10.3 [facility] Comment on above: Performed By: #### C OMP ####[address] [address] Chloride [Moles/Vol] 106 mmol/L Normal 98-110 [facility] Comment on above: Performed By: #### C OMP ####[address] [address] CO2 [Moles/Vol] 24 mmol/L Normal 22-32 [facility] Comment on above: Performed By: #### C OMP ####[address] [address] Creatinine [Mass/Vol] 0.91 mg/dL Normal 0.61-1.24 [facility] Comment on above: Performed By: #### C OMP ####[address] [address] Glucose [Mass/Vol] 88 mg/dL Normal 70-99 [facility] Comment on above: Performed By: #### C OMP ####[address] [address] Potassium [Moles/Vol] 4.3 mmol/L Normal 3.4-4.8 [facility] Comment on above: Performed By: #### C OMP ####[address] [address] Protein [Mass/Vol] 6.3 g/dL Low 6.5-8.1 [facility] Comment on above: Performed By: #### C OMP ####[address] [address] Sodium [Moles/Vol] 136 mmol/L Normal 133-142 [facility] Comment on above: Performed By: #### C OMP ####[address] [address] Urea nitrogen [Mass/Vol] 18 mg/dL Normal 8-26 [facility] Comment on above: Performed By: #### C OMP ####[address] [address] Urea nitrogen/Creatinine [Mass ratio] 19.8 mg/mg Normal 10.0-20.0 [facility] Comment on above: Performed By: #### C OMP ####[address] [address] Diff Autoon 04-07-2024 Baso Absolute 0.1 x10*3/mcL Normal 0.0-0.2 [facility] Comment on above: Performed By: #### . Automated Diff ####[address] [address] Basophils/100 WBC (Bld) 1.2 % Normal 0.0-1.2 [facility] Comment on above: Performed By: #### . Automated Diff ####[address] [address] Eos Absolute 0.3 x10*3/mcL Normal 0.0-0.4 [facility] Comment on above: Performed By: #### . Automated Diff ####[address] [address] Eosinophils/100 WBC (Bld) 3.4 % Normal 0.0-6.1 [facility] Comment on above: Performed By: #### . Automated Diff ####[address] [address] Lymph Absolute 2.8 x10*3/mcL Normal 1.0-4.8 [facility] Comment on above: Performed By: #### . Automated Diff ####[address] [address] Lymphocytes/100 WBC (Bld) 36.5 % Normal 27.2-40.8 [facility] Comment on above: Performed By: #### . Automated Diff ####[address] [address] [place] Absolute 0.7 x10*3/mcL Normal 0.3-1.1 [facility] Comment on above: Performed By: #### . Automated Diff ####[address] [address] Monocytes/100 WBC (Bld) 9.6 % Normal 4.7-13.9 [facility] Comment on above: Performed By: #### . Automated Diff ####[address] [address] Neutro Absolute 3.7 x10*3/mcL Normal 1.8-7.7 [facility] Comment on above: Performed By: #### . Automated Diff ####[place] [address] Neutro Auto 49.3 % Normal 47.2-70.8 [facility] Comment on above: Performed By: #### . Automated Diff ####[place] [address] Magnesiumon 04-07-2024 Magnesium [Mass/Vol] 2.2 mg/dL Normal 1.7-2.4 [facility] Comment on above: Performed By: #### M G ####[place] [address] Phosphoruson 04-07-2024 Phosphate [Mass/Vol] 4.0 mg/dL Normal 2.5-4.6 [facility] Comment on above: Performed By: #### P HOS ####[place] [address] Progress Note-Nurseon 2023 Progress Note-Nurse Normal [facility] UDS Comp/Con 04-07-2024 Ur Amph Scrn w/Conf Positive Abnormal NEG = <1000 [facility] Comment on above: Result Comment: This unconfirmed positive screening result is to be used for medical treatment purposes only. Confirmation testing will be performed using an alternate method. Performed By: #### C D:[id number] ####[place] [id number] Ur Yenifer Scrn w/Conf Negative Normal NEG = <200 [facility] Comment on above: Performed By: #### C [id number] ####[place] [id number] Ur Benzodia Scrn w/Conf Negative Normal NEG = <200 [facility] Comment on above: Performed By: #### C D:[id number] ####[place] [id number] Ur Cannab Scrn w/Conf Positive Abnormal NEG = <50 [facility] Comment on above: Result Comment: This unconfirmed positive screening result is to be used for medical treatment purposes only. Confirmation testing will be performed using an alternate method. Performed By: #### C [id number] ####[address] [address] Ur Cocaine Scrn w/Conf Negative Normal NEG = <300 [facility] Comment on above: Performed By: #### C [id number] ####[address] [address] Ur Methadone Scrn w/Conf Negative Normal NEG = <300 [facility] Comment on above: Performed By: #### C [id number] ####[address] [address] Ur Opiate Scrn w/Conf Negative Normal NEG = <300 [facility] Comment on above: Performed By: #### C [id number] ####[address] [address] Ur Oxy Screen w/Conf Negative Normal NEG = <100 [facility] Comment on above: Performed By: #### C D:[id number] ####[address] [address] Ur Oxy Scrn Qnt w/Confirm 0 ng/mL Normal <=99 [facility] Comment on above: Performed By: #### C [id number] ####[address] [address] Ur PCP Scrn w/Conf Negative Normal NEG = <25 [facility] Comment on above: Performed By: #### C [id number] ####[address] [address] .Fentanyl Scrn with Conf,Uro n 04-06-2024 Ur Fentanyl Scrn w/Confirm Negative Normal NEG <1.0 [facility] Comment on above: Performed By: #### C [id number] ####[address] [place] [address] Ur Fentanyl Scrn w/Confirm Qnt 0.11 ng/mL Normal <=0.99 [facility] Comment on above: Performed By: #### C [id number] ####[place] [address] .Fentanyl Scrn wo Conf,Uron 04-06-2024 Ur Fentanyl Scrn Negative Normal NEG <1.0 [facility] Comment on above: Performed By: #### C [id number] ####[place] [address] Ur Fentanyl Scrn Qnt 0.11 ng/mL Normal <=0.99 [facility] Comment on above: Performed By: #### C [id number] ####[place] [address] .UA Microscp Aon 04-06-2024 UA Mucus Present Normal Absent [facility] Comment on above: Performed By: #### . Urinalysis Microscopic Auto ####[place] [address] UA Non Squep Epi <1 Normal [facility] Comment on above: Performed By: #### . Urinalysis Microscopic Auto ####[place] [address] UA RBC Quant 0 /HPF Normal 0-5 [facility] Comment on above: Performed By: #### . Urinalysis Microscopic Auto ####[place] [address] UA WBC Quant 0 /HPF Normal 0-5 [facility] Comment on above: Performed By: #### . Urinalysis Microscopic Auto ####[place] [address] .eGFRon 04-06-2024 GFR/1.73 sq M.predicted MDRD (S/P/Bld) [Vol rate/Area] mL/min/{1.73_m2} Normal >=60 [facility] Comment on above: Result Comment: [facility] have implemented the eGFR calculation approach that does not have a coefficient for race and that conforms to the NKF-ASN Task Force Recommendations.Stages of Chronic Kidney Disease GFRStage 3a Mild to moderate loss of kidney function 59 to 45Stage 3b Moderate to severe loss of kidney function 44 to 33Stage 4 Severe loss of kidney function 29 to 15Stage 5 Kidney failure Less than 15GFR calculated using the CKD-Epi Creatinine Equation (2020):eGFR = 142 X min(SCr/?, 1)? X max(SCr /?, 1)-1.200 X 0.9938Age X 1.012 [if female]Abbreviations/Units:eGFR (estimated glomerular filtration rate) = mL/min/1.73 m2SCr (standardized serum creatinine) = mg/dL? = 0.7 (females) or 0.9 (males)? = -0.241 (females) or -0.302 (males)min = indicates the minimum of SCr/? or 1max = indicates the maximum of SCr/? or 1Age = years Performed By: #### E GFR ####[address] [id number] Amylaseon 04-06-2024 Amylase [Catalytic activity/Vol] 62 U/L Normal 28-100 [facility] Comment on above: Performed By: #### A MY ####[address] [address] B12/Folate Lvlon 04-06-2024 Cobalamin (Vitamin B12) [Mass/Vol] 399 pg/mL Normal 180-914 [facility] Comment on above: Performed By: #### B 12FO ####[address] [address] Folate Lvl >22.3 Normal >=5.9 [facility] Comment on above: Result Comment: A [facility] O Technical Consultation has determined that deficient Folate concentrations are considered to be less than 4 ng/mL. Performed By: #### B 12FO ####[address] [address] CBC w/ Diffon 04-06-2024 Erythrocyte distribution width (RBC) [Ratio] 13.5 % Normal 11.6-14.8 [facility] Comment on above: Performed By: #### C BC ####[address] [address] Hematocrit (Bld) [Volume fraction] 49.9 % Normal 41.0-53.0 [facility] Comment on above: Performed By: #### C BC ####[address] [address] Hemoglobin (Bld) [Mass/Vol] 16.9 g/dL Normal 13.5-17.5 [facility] Comment on above: Performed By: #### C BC ####[address] [address] MCH (RBC) [Entitic mass] 31.0 pg Normal 27.0-35.0 [facility] Comment on above: Performed By: #### C BC ####[address] [address] MCHC 33.8 % Normal 31.0-37.0 [facility] Comment on above: Performed By: #### C BC ####[address] [address] MCV (RBC) [Entitic vol] 91.5 fL Normal 80.0-100.0 [facility] Comment on above: Performed By: #### C BC ####[address] [address] Platelet 361 x10*3/mcL Normal 150-450 [facility] Comment on above: Performed By: #### C BC ####[address] [address] Platelet mean volume (Bld) [Entitic vol] 7.3 fL Normal 6.7-10.6 [facility] Comment on above: Performed By: #### C BC ####[address] [address] RBC 5.46 x10*6/mcL Normal 4.30-5.80 [facility] Comment on above: Performed By: #### C BC ####[address] [address] WBC 11.0 x10*3/mcL Normal 4.5-11.0 [facility] Comment on above: Performed By: #### C BC ####[address] [address] CMPon 04-06-2024 Albumin [Mass/Vol] 3.8 g/dL Normal 3.2-4.9 [facility] Comment on above: Performed By: #### C OMP ####[address] [address] Albumin/Globulin [Mass ratio] 1.0 {ratio} Low 1.1-2.2 [facility] Comment on above: Performed By: #### C OMP ####[address] [address] Alk Phos 50 IU/L Normal 32-91 [facility] Comment on above: Performed By: #### C OMP ####[address] [address] ALT [Catalytic activity/Vol] 77 U/L High 17-63 [facility] Comment on above: Performed By: #### C OMP ####[address] [address] Anion gap [Moles/Vol] 9 mmol/L Normal 4-12 [facility] Comment on above: Performed By: #### C OMP ####[address] [address] AST [Catalytic activity/Vol] 38 U/L Normal 15-41 [facility] Comment on above: Performed By: #### C OMP ####[address] [address] Bili Total 0.5 mg/dL Normal 0.3-1.2 [facility] Comment on above: Performed By: #### C OMP ####[address] [address] Calcium [Mass/Vol] 8.7 mg/dL Normal 8.5-10.3 [facility] Comment on above: Performed By: #### C OMP ####[address] [address] Chloride [Moles/Vol] 100 mmol/L Normal 98-110 [facility] Comment on above: Performed By: #### C OMP ####[address] [address] CO2 [Moles/Vol] 23 mmol/L Normal 22-32 [facility] Comment on above: Performed By: #### C OMP ####[address] [address] Creatinine [Mass/Vol] 0.79 mg/dL Normal 0.61-1.24 [facility] Comment on above: Performed By: #### C OMP ####[address] [address] Glucose [Mass/Vol] 89 mg/dL Normal 70-99 [facility] Comment on above: Performed By: #### C OMP ####[address] [address] Potassium [Moles/Vol] 4.1 mmol/L Normal 3.4-4.8 [facility] Comment on above: Performed By: #### C OMP ####[address] [address] Protein [Mass/Vol] 7.5 g/dL Normal 6.5-8.1 [facility] Comment on above: Performed By: #### C OMP ####[address] [address] Sodium [Moles/Vol] 132 mmol/L Low 133-142 [facility] Comment on above: Performed By: #### C OMP ####[address] [address] Urea nitrogen [Mass/Vol] 15 mg/dL Normal 8-26 [facility] Comment on above: Performed By: #### C OMP ####[address] [address] Urea nitrogen/Creatinine [Mass ratio] 19.0 mg/mg Normal 10.0-20.0 [facility] Comment on above: Performed By: #### C OMP ####[address] [address] Diff Autoon 04-06-2024 Baso Absolute 0.2 x10*3/mcL Normal 0.0-0.2 [facility] Comment on above: Performed By: #### . Automated Diff ####[address] [address] Basophils/100 WBC (Bld) 1.5 % High 0.0-1.2 [facility] Comment on above: Performed By: #### . Automated Diff ####[address] [address] Eos Absolute 0.2 x10*3/mcL Normal 0.0-0.4 [facility] Comment on above: Performed By: #### . Automated Diff ####[address] [address] Eosinophils/100 WBC (Bld) 2.2 % Normal 0.0-6.1 [facility] Comment on above: Performed By: #### . Automated Diff ####[address] [address] Lymph Absolute 3.1 x10*3/mcL Normal 1.0-4.8 [facility] Comment on above: Performed By: #### . Automated Diff ####[address] [address] Lymphocytes/100 WBC (Bld) 27.9 % Normal 27.2-40.8 [facility] Comment on above: Performed By: #### . Automated Diff ####[address] [address] [place] Absolute 0.9 x10*3/mcL Normal 0.3-1.1 [facility] Comment on above: Performed By: #### . Automated Diff ####[address] [address] Monocytes/100 WBC (Bld) 8.0 % Normal 4.7-13.9 [facility] Comment on above: Performed By: #### . Automated Diff ####[place] [address] Neutro Absolute 6.6 x10*3/mcL Normal 1.8-7.7 [facility] Comment on above: Performed By: #### . Automated Diff ####[place] [address] Neutro Auto 60.4 % Normal 47.2-70.8 [facility] Comment on above: Performed By: #### . Automated Diff ####[place] [address] Dir Indir Bilion 04-06-2024 Bili Direct 0.1 mg/dL Normal 0.1-0.5 [facility] Comment on above: Performed By: #### D /IBILI ####[place] [address] Bili Indirect 0.4 mg/dL Normal 0.0-1.0 [facility] Comment on above: Performed By: #### D /IBILI ####[place] [address] ED Clinical Summaryon 2023 ED Clinical Summary Normal [facility] ED Note-Physicianon 04-06-20 ED Note-Physician Normal [facility] Ethanolon 04-06-2024 Ethanol, Plasma <10 Normal <=9 [facility] Comment on above: Result Comment: To c onvert mg/dL to g/dL, divide result by 1,000. Legal limit of intoxication is 80 mg/dL (0.08 g/dL). Performed By: #### A LC ####[place] [address] Ethanol, Plasma 82 mg/dL High <=9 [facility] Comment on above: Result Comment: To c onvert mg/dL to g/dL, divide result by 1,000. Legal limit of intoxication is 80 mg/dL (0.08 g/dL). Performed By: #### A LC ####[address] [address] Lipaseon 04-06-2024 Lipase Lvl 44 IU/L Normal 22-51 [facility] Comment on above: Performed By: #### L IP ####[address] [address] PTon 04-06-2024 INR Coag (PPP) [Relative time] 0.9 {INR} Normal <=3.5 [facility] Comment on above: Result Comment: INR has no normal range. INR Therapeutic range is:2.0-3.0 (AF, CVA, TIAs, DVT prophylaxis, acute DVT)2.5-3.5 ([facility] heart valves, recurrent thrombosis/emboli) Performed By: #### P TINR ####[address] [address] PT Coag (PPP) [Time] 9.8 s Normal 9.2-12.0 [facility] Comment on above: Performed By: #### P TINR ####[address] [address] UA w Culture if Indon 2023 Color (U) Colorless Normal Yellow [facility] Comment on above: Performed By: #### U CI ####[address] [address] Ketones Ql (U) Negative Normal Negative [facility] Comment on above: Performed By: #### U CI ####[address] [address] UA Blood Negative Normal Negative [facility] Comment on above: Performed By: #### U CI ####[address] [address] UA Clarity Clear Normal Clear [facility] Comment on above: Performed By: #### U CI ####[address] [address] UA Glucose Normal Normal Negative [facility] Comment on above: Performed By: #### U CI ####[address] [address] UA Leukocyte Esterase Negative Normal Negative [facility] Comment on above: Performed By: #### U CI ####[address] [address] UA Nitrite Negative Normal Negative [facility] Comment on above: Performed By: #### U CI ####[address] [address] UA pH 5.5 Normal 4.5 - 7.8 [facility] Comment on above: Performed By: #### U CI ####[address] [address] UA Protein Negative Normal Negative [facility] Comment on above: Performed By: #### U CI ####[address] [address] UA Source Clean Catch Normal [facility] Comment on above: Performed By: #### U CI ####[address] [address] UA Spec Grav 1.005 Normal 1.003-1.035 [facility] Comment on above: Performed By: #### U CI ####[address] [address] UA Urobilinogen Normal Normal 0.2 - 1.0 [facility] Comment on above: Performed By: #### U CI ####[address] [address] Urobilinogen (U) [Mass/Vol] Negative Normal Negative [facility] Comment on above: Performed By: #### U CI ####[address] [address] UDS Compon 04-06-2024 Creatinine [Mass/Vol] 27.2 mg/dL Normal [facility] Comment on above: Performed By: #### C [id number] ####[address] [address] Ur Amph Scrn Positive Abnormal NEG = <1000 [facility] Comment on above: Result Comment: This unconfirmed positive screening result is to be used for medical treatment purposes only. Unconfirmed screening results must not be used for non-medical purposes (e.g. employment testing, legal testing). Performed By: #### C [id number] ####[address] [address] Ur Yenifer Scrn Negative Normal NEG = <200 [facility] Comment on above: Performed By: #### C [id number] ####[address] [address] Ur Benzodia Scrn Negative Normal NEG = <200 [facility] Comment on above: Performed By: #### C [id number] ####[address] [address] Ur Cannab Scrn Positive Abnormal NEG = <50 [facility] Comment on above: Result Comment: This unconfirmed positive screening result is to be used for medical treatment purposes only. Unconfirmed screening results must not be used for non-medical purposes (e.g. employment testing, legal testing). Performed By: #### C [id number] ####[address] [address] Ur Cocaine Scrn Negative Normal NEG = <300 [facility] Comment on above: Performed By: #### C [id number] ####[address] [address] Ur Methadone Scn Negative Normal NEG = <300 [facility] Comment on above: Performed By: #### C [id number] ####[address] [address] Ur Opiate Scrn Negative Normal NEG = <300 [facility] Comment on above: Performed By: #### C [id number] ####[address] [address] Ur Oxy Screen Negative Normal NEG = <100 [facility] Comment on above: Performed By: #### C [id number] ####[address] [address] Ur Oxy Scrn Qnt 0 ng/mL Normal <=99 [facility] Comment on above: Performed By: #### C [id number] ####[address] [address] Ur PCP Scrn Negative Normal NEG = <25 [facility] Comment on above: Performed By: #### C [id number] ####[address] [address] UA pH 5.5 Normal 4.5 - 7.8 [facility] Comment on above: Performed By: #### C [id number] ####[address] [address] UA Spec Grav 1.005 Normal 1.003-1.035 [facility] Comment on above: Performed By: #### C [id number] ####[address] [address] UDS Comp/Con 04-06-2024 UA pH 5.5 Normal 4.5 - 7.8 [facility] Comment on above: Performed By: #### C [id number] ####[address] [address] UA Spec Grav 1.005 Normal 1.003-1.035 [facility] Comment on above: Performed By: #### C [id number] ####[address] [address] Creatinine [Mass/Vol] 27.2 mg/dL Normal [facility] Comment on above: Performed By: #### C [id number] ####[address] [address] ED Clinical Summaryon 2023 ED Clinical Summary Normal [facility] ED Note-Physicianon 03-27-20 ED Note-Physician Normal [facility] ED Clinical Summaryon 2023 ED Clinical Summary Normal [facility] ED Note-Physicianon 03-04-20 ED Note-Physician Normal [facility] ED Note-Physician Normal [facility] .Fentanyl Scrn wo Conf,Uron 03-03-2024 Ur Fentanyl Scrn Negative Normal NEG <1.0 [facility] Comment on above: Performed By: #### C D:[id number] ####[place] [address] Ur Fentanyl Scrn Qnt 0.00 ng/mL Normal <=0.99 [facility] Comment on above: Performed By: #### C D:[id number] ####[place] [address] .UA Microscp Aon 03-03-2024 UA Mucus Present Normal Absent [facility] Comment on above: Performed By: #### . Urinalysis Microscopic Auto ####[place] [address] UA RBC Quant 0 /HPF Normal 0-5 [facility] Comment on above: Performed By: #### . Urinalysis Microscopic Auto ####[place] [address] UA Squepi Cells Quant 1 /HPF Normal 0-29 [facility] Comment on above: Performed By: #### . Urinalysis Microscopic Auto ####[place] [address] UA WBC Quant 2 /HPF Normal 0-5 [facility] Comment on above: Performed By: #### . Urinalysis Microscopic Auto ####[place] [address] .eGFRon 03-03-2024 GFR/1.73 sq M.predicted MDRD (S/P/Bld) [Vol rate/Area] mL/min/{1.73_m2} Normal >=60 [facility] Comment on above: Result Comment: [facility] have implemented the eGFR calculation approach that does not have a coefficient for race and that conforms to the NKF-ASN Task Force Recommendations.Stages of Chronic Kidney Disease GFRStage 3a Mild to moderate loss of kidney function 59 to 45Stage 3b Moderate to severe loss of kidney function 44 to 33Stage 4 Severe loss of kidney function 29 to 15Stage 5 Kidney failure Less than 15GFR calculated using the CKD-Epi Creatinine Equation (2020):eGFR = 142 X min(SCr/?, 1)? X max(SCr /?, 1)-1.200 X 0.9938Age X 1.012 [if female]Abbreviations/Units:eGFR (estimated glomerular filtration rate) = mL/min/1.73 m2SCr (standardized serum creatinine) = mg/dL? = 0.7 (females) or 0.9 (males)? = -0.241 (females) or -0.302 (males)min = indicates the minimum of SCr/? or 1max = indicates the maximum of SCr/? or 1Age = years Performed By: #### E GFR ####[place] [address] CBCon 03-03-2024 Erythrocyte distribution width (RBC) [Ratio] 13.0 % Normal 11.6-14.8 [facility] Comment on above: Performed By: #### C BCI ####[place] [address] Hematocrit (Bld) [Volume fraction] 48.8 % Normal 41.0-53.0 [facility] Comment on above: Performed By: #### C BCI ####[place] [address] Hemoglobin (Bld) [Mass/Vol] 16.6 g/dL Normal 13.5-17.5 [facility] Comment on above: Performed By: #### C BCI ####[place] [id number] MCH (RBC) [Entitic mass] 30.4 pg Normal 27.0-35.0 [facility] Comment on above: Performed By: #### C BCI ####[place] [id number] MCHC 34.0 % Normal 31.0-37.0 [facility] Comment on above: Performed By: #### C BCI ####[address] [address] MCV (RBC) [Entitic vol] 89.5 fL Normal 80.0-100.0 [facility] Comment on above: Performed By: #### C BCI ####[address] [address] Platelet 264 x10*3/mcL Normal 150-450 [facility] Comment on above: Performed By: #### C BCI ####[place] [id number] Platelet mean volume (Bld) [Entitic vol] 7.2 fL Normal 6.7-10.6 [facility] Comment on above: Performed By: #### C BCI ####[place] [id number] RBC 5.46 x10*6/mcL Normal 4.30-5.80 [facility] Comment on above: Performed By: #### C BCI ####[place] [id number] WBC 7.9 x10*3/mcL Normal 4.5-11.0 [facility] Comment on above: Performed By: #### C BCI ####[place] [id number] CMPon 03-03-2024 Albumin [Mass/Vol] 4.3 g/dL Normal 3.2-4.9 [facility] Comment on above: Performed By: #### C OMP ####[place] [id number] Albumin/Globulin [Mass ratio] 1.3 {ratio} Normal 1.1-2.2 [facility] Comment on above: Performed By: #### C OMP ####[place] [id number] Alk Phos 64 IU/L Normal 32-91 [facility] Comment on above: Performed By: #### C OMP ####[place] [id number] ALT [Catalytic activity/Vol] 31 U/L Normal 17-63 [facility] Comment on above: Performed By: #### C OMP ####[address] [address] AST [Catalytic activity/Vol] 26 U/L Normal 15-41 [facility] Comment on above: Performed By: #### C OMP ####[address] [address] Bili Total 1.2 mg/dL Normal 0.3-1.2 [facility] Comment on above: Performed By: #### C OMP ####[address] [address] Creatinine [Mass/Vol] 0.90 mg/dL Normal 0.61-1.24 [facility] Comment on above: Performed By: #### C OMP ####[address] [address] Protein [Mass/Vol] 7.5 g/dL Normal 6.5-8.1 [facility] Comment on above: Performed By: #### C OMP ####[address] [address] Urea nitrogen [Mass/Vol] 16 mg/dL Normal 8-26 [facility] Comment on above: Performed By: #### C OMP ####[address] [address] Urea nitrogen/Creatinine [Mass ratio] 17.8 mg/mg Normal 10.0-20.0 [facility] Comment on above: Performed By: #### C OMP ####[address] [address] Anion gap [Moles/Vol] 9 mmol/L Normal 4-12 [facility] Comment on above: Performed By: #### C OMP ####[address] [address] Calcium [Mass/Vol] 8.6 mg/dL Normal 8.5-10.3 [facility] Comment on above: Performed By: #### C OMP ####[address] [address] Chloride [Moles/Vol] 104 mmol/L Normal 98-110 [facility] Comment on above: Performed By: #### C OMP ####[address] [address] CO2 [Moles/Vol] 22 mmol/L Normal 22-32 [facility] Comment on above: Performed By: #### C OMP ####[address] [address] Glucose [Mass/Vol] 91 mg/dL Normal 70-99 [facility] Comment on above: Performed By: #### C OMP ####[address] [address] Potassium [Moles/Vol] 3.6 mmol/L Normal 3.4-4.8 [facility] Comment on above: Performed By: #### C OMP ####[address] [address] Sodium [Moles/Vol] 135 mmol/L Normal 133-142 [facility] Comment on above: Performed By: #### C OMP ####[address] [address] Ethanolon 03-03-2024 Ethanol, Plasma <10 Normal <=9 [facility] Comment on above: Result Comment: To c onvert mg/dL to g/dL, divide result by 1,000. Legal limit of intoxication is 80 mg/dL (0.08 g/dL). Performed By: #### A LC ####[address] [address] Magnesiumon 03-03-2024 Magnesium [Mass/Vol] 2.3 mg/dL Normal 1.7-2.4 [facility] Comment on above: Performed By: #### M G ####[address] [address] TSHon 03-03-2024 TSH Qn 5.99 m[IU]/L High 0.45-5.33 [facility] Comment on above: Result Comment: Refe rence Ranges for individuals from to 18 years of age were obtained from The [employer] Handbook (20 ed) published by [facility].Reference Ranges for Females: Females, 1st Trimester 0.05 ? 3.7 uIU/mL Females, 2nd Trimester 0.31 ? 4.35 uIU/mL Females, 3rd Trimester 0.41 ? 5.18 uIU/mL Performed By: #### T SH ####[address] [address] Total T4on 03-03-2024 T4 [Mass/Vol] 9.8 ug/dL Normal 5.0-11.5 [facility] Comment on above: Performed By: #### T 4 ####[address] [address] UA w Culture if Indon 2023 Color (U) Yellow Normal Yellow [facility] Comment on above: Performed By: #### U CI ####[address] [address] Ketones Ql (U) Trace Abnormal Negative [facility] Comment on above: Performed By: #### U CI ####[address] [address] UA Blood Negative Normal Negative [facility] Comment on above: Performed By: #### U CI ####[address] [address] UA Clarity Clear Normal Clear [facility] Comment on above: Performed By: #### U CI ####[address] [address] UA Glucose Normal Normal Negative [facility] Comment on above: Performed By: #### U CI ####[address] [address] UA Leukocyte Esterase Negative Normal Negative [facility] Comment on above: Performed By: #### U CI ####[address] [address] UA Nitrite Negative Normal Negative [facility] Comment on above: Performed By: #### U CI ####[address] [address] UA pH 6.5 Normal 4.5 - 7.8 [facility] Comment on above: Performed By: #### U CI ####[address] [address] UA Protein 20 mg/dL Normal Negative [facility] Comment on above: Performed By: #### U CI ####[address] [address] UA Source Clean Catch Normal [facility] Comment on above: Performed By: #### U CI ####[address] [address] UA Spec Grav 1.026 Normal 1.003-1.035 [facility] Comment on above: Performed By: #### U CI ####[address] [address] UA Urobilinogen 2 mg/dL Abnormal 0.2 - 1.0 [facility] Comment on above: Performed By: #### U CI ####[place] [id number] Urobilinogen (U) [Mass/Vol] Negative Normal Negative [facility] Comment on above: Performed By: #### U CI ####[address] [address] UDS Compon 03-03-2024 Creatinine [Mass/Vol] 265.3 mg/dL Normal Bl [facility] Comment on above: Performed By: #### C [id number] ####[address] [address] Ur Amph Scrn Positive Abnormal NEG = <1000 [facility] Comment on above: Result Comment: This unconfirmed positive screening result is to be used for medical treatment purposes only. Unconfirmed screening results must not be used for non-medical purposes (e.g. employment testing, legal testing). Performed By: #### C [id number] ####[address] [address] Ur Yenifer Scrn Negative Normal NEG = <200 [facility] Comment on above: Performed By: #### C [id number] ####[address] [address] Ur Benzodia Scrn Positive Abnormal NEG = <200 [facility] Comment on above: Result Comment: This unconfirmed positive screening result is to be used for medical treatment purposes only. Unconfirmed screening results must not be used for non-medical purposes (e.g. employment testing, legal testing). Performed By: #### C [id number] ####[address] [address] Ur Cannab Scrn Positive Abnormal NEG = <50 [facility] Comment on above: Result Comment: This unconfirmed positive screening result is to be used for medical treatment purposes only. Unconfirmed screening results must not be used for non-medical purposes (e.g. employment testing, legal testing). Performed By: #### C [id number] ####[address] [address] Ur Cocaine Scrn Negative Normal NEG = <300 [facility] Comment on above: Performed By: #### C [id number] ####[address] [address] Ur Methadone Scn Negative Normal NEG = <300 [facility] Comment on above: Performed By: #### C [id number] ####[address] [address] Ur Opiate Scrn Negative Normal NEG = <300 [facility] Comment on above: Performed By: #### C [id number] ####[address] [address] Ur Oxy Screen Negative Normal NEG = <100 [facility] Comment on above: Performed By: #### C D:[id number] ####[address] [address] Ur Oxy Scrn Qnt 17 ng/mL Normal <=99 [facility] Comment on above: Performed By: #### C D:[id number] ####[place] [address] Ur PCP Scrn Negative Normal NEG = <25 [facility] Comment on above: Performed By: #### C [id number] ####[place] [address] UA pH 6.5 Normal 4.5 - 7.8 [facility] Comment on above: Performed By: #### C [id number] ####[place] [address] UA Spec Grav 1.026 Normal 1.003-1.035 [facility] Comment on above: Performed By: #### C [id number] ####[place] [address] .Fentanyl Scrn wo Conf,Uron 03-01-2024 Ur Fentanyl Scrn Negative Normal NEG <1.0 [facility] Comment on above: Performed By: #### C D:[id number] ####[place] [address] Ur Fentanyl Scrn Qnt 0.26 ng/mL Normal <=0.99 [facility] Comment on above: Performed By: #### C D:[id number] ####[place] [address] .UA Microscp Aon 03-01-2024 UA RBC Quant 0 /HPF Normal 0-5 [facility] Comment on above: Performed By: #### . Urinalysis Microscopic Auto ####[place] [address] UA WBC Quant 2 /HPF Normal 0-5 [facility] Comment on above: Performed By: #### . Urinalysis Microscopic Auto ####[place] [address] .eGFRon 03-01-2024 GFR/1.73 sq M.predicted MDRD (S/P/Bld) [Vol rate/Area] mL/min/{1.73_m2} Normal >=60 [facility] Comment on above: Result Comment: [facility] have implemented the eGFR calculation approach that does not have a coefficient for race and that conforms to the NKF-ASN Task Force Recommendations.Stages of Chronic Kidney Disease GFRStage 3a Mild to moderate loss of kidney function 59 to 45Stage 3b Moderate to severe loss of kidney function 44 to 33Stage 4 Severe loss of kidney function 29 to 15Stage 5 Kidney failure Less than 15GFR calculated using the CKD-Epi Creatinine Equation (2020):eGFR = 142 X min(SCr/?, 1)? X max(SCr /?, 1)-1.200 X 0.9938Age X 1.012 [if female]Abbreviations/Units:eGFR (estimated glomerular filtration rate) = mL/min/1.73 m2SCr (standardized serum creatinine) = mg/dL? = 0.7 (females) or 0.9 (males)? = -0.241 (females) or -0.302 (males)min = indicates the minimum of SCr/? or 1max = indicates the maximum of SCr/? or 1Age = years Performed By: #### E GFR ####[place] [address] BNPon 03-01-2024 Natriuretic peptide B (Bld) [Mass/Vol] 5 pg/mL Normal 0-100 [facility] Comment on above: Performed By: #### B AUDIO/VISUAL MANAGER ####[place] [id number] CBC w/ Diffon 03-01-2024 Erythrocyte distribution width (RBC) [Ratio] 13.0 % Normal 11.6-14.8 [facility] Comment on above: Performed By: #### C BC ####[place] [id number] Hematocrit (Bld) [Volume fraction] 46.5 % Normal 41.0-53.0 [facility] Comment on above: Performed By: #### C BC ####[address] [address] Hemoglobin (Bld) [Mass/Vol] 16.0 g/dL Normal 13.5-17.5 [facility] Comment on above: Performed By: #### C BC ####[place] [id number] MCH (RBC) [Entitic mass] 30.9 pg Normal 27.0-35.0 [facility] Comment on above: Performed By: #### C BC ####[place] [id number] MCHC 34.5 % Normal 31.0-37.0 [facility] Comment on above: Performed By: #### C BC ####[place] [id number] MCV (RBC) [Entitic vol] 89.6 fL Normal 80.0-100.0 [facility] Comment on above: Performed By: #### C BC ####[place] [id number] Platelet 261 x10*3/mcL Normal 150-450 [facility] Comment on above: Performed By: #### C BC ####[address] [address] Platelet mean volume (Bld) [Entitic vol] 7.2 fL Normal 6.7-10.6 [facility] Comment on above: Performed By: #### C BC ####[address] [address] RBC 5.19 x10*6/mcL Normal 4.30-5.80 [facility] Comment on above: Performed By: #### C BC ####[address] [address] WBC 8.7 x10*3/mcL Normal 4.5-11.0 [facility] Comment on above: Performed By: #### C BC ####[address] [address] CMPon 03-01-2024 Albumin [Mass/Vol] 4.2 g/dL Normal 3.2-4.9 [facility] Comment on above: Performed By: #### C OMP ####[address] [address] Albumin/Globulin [Mass ratio] 1.2 {ratio} Normal 1.1-2.2 [facility] Comment on above: Performed By: #### C OMP ####[address] [address] Alk Phos 63 IU/L Normal 32-91 [facility] Comment on above: Performed By: #### C OMP ####[address] [address] ALT [Catalytic activity/Vol] 28 U/L Normal 17-63 [facility] Comment on above: Performed By: #### C OMP ####[address] [address] Anion gap [Moles/Vol] 10 mmol/L Normal 4-12 [facility] Comment on above: Performed By: #### C OMP ####[address] [address] AST [Catalytic activity/Vol] 25 U/L Normal 15-41 [facility] Comment on above: Performed By: #### C OMP ####[address] [address] Bili Total 1.3 mg/dL High 0.3-1.2 [facility] Comment on above: Performed By: #### C OMP ####[address] [address] Calcium [Mass/Vol] 9.0 mg/dL Normal 8.5-10.3 [facility] Comment on above: Performed By: #### C OMP ####[address] [address] Chloride [Moles/Vol] 101 mmol/L Normal 98-110 [facility] Comment on above: Performed By: #### C OMP ####[address] [address] CO2 [Moles/Vol] 23 mmol/L Normal 22-32 [facility] Comment on above: Performed By: #### C OMP ####[address] [address] Creatinine [Mass/Vol] 1.15 mg/dL Normal 0.61-1.24 [facility] Comment on above: Performed By: #### C OMP ####[address] [address] Glucose [Mass/Vol] 91 mg/dL Normal 70-99 [facility] Comment on above: Performed By: #### C OMP ####[address] [address] Potassium [Moles/Vol] 3.4 mmol/L Normal 3.4-4.8 [facility] Comment on above: Performed By: #### C OMP ####[address] [address] Protein [Mass/Vol] 7.6 g/dL Normal 6.5-8.1 [facility] Comment on above: Performed By: #### C OMP ####[address] [address] Sodium [Moles/Vol] 134 mmol/L Normal 133-142 [facility] Comment on above: Performed By: #### C OMP ####[address] [address] Urea nitrogen [Mass/Vol] 13 mg/dL Normal 8-26 [facility] Comment on above: Performed By: #### C OMP ####[address] [address] Urea nitrogen/Creatinine [Mass ratio] 11.3 mg/mg Normal 10.0-20.0 [facility] Comment on above: Performed By: #### C OMP ####[address] [address] CoV2 Quadon 03-01-2024 Influenza A PCR Negative Normal Negative [facility] Comment on above: Performed By: #### C D:[id number] ####[place] [id number] Influenza B PCR Negative Normal Negative [facility] Comment on above: Performed By: #### C D:[id number] ####[place] [address] LAB ONLY Result Called? No Normal [facility] Comment on above: Performed By: #### C D:[id number] ####[place] [id number] RSV PCR Negative Normal Negative [facility] Comment on above: Result Comment: Resu lts from the Xpert Flu/RSV XC Assay should be interpreted with other laboratory and clinical data available to the clinician. Negative results do not preclude influenza virus or RSV infection and should not be used as the sole basis for treatment or other patient management decisions. False negative results may occur if the virus is present at levels below the analytical limit of detection. Recent exposure to FluMist or other live, attenuated influenza vaccines may cause inaccurate positive results. Performed By: #### C D:[id number] ####[place] [address] SARS-CoV-2 RNA Detection Negative Normal Negative [facility] Comment on above: Result Comment: The 2019 novel coronavirus SARS-CoV-2 target nucleic acids are not detected.The Xpert Xpress SARS-CoV-2/Flu/RSV plus test is a rapid, multiplexed real-time RT-PCR test intended for the simultaneous qualitative detection and differentiation of SARS-CoV-2, influenza A, influenza B, and respiratory syncytial virus (RSV) viral RNA in either nasopharyngeal swab or nasal swab collected from individuals suspected of respiratory viral infection consistent with COVID-19 by their healthcare provider. Performed By: #### C D:[id number] ####[place] [id number] Diff Autoon 03-01-2024 Baso Absolute 0.0 x10*3/mcL Normal 0.0-0.2 [facility] Comment on above: Performed By: #### . Automated Diff ####[place] [id number] Basophils/100 WBC (Bld) 0.3 % Normal 0.0-1.2 [facility] Comment on above: Performed By: #### . Automated Diff ####[address] [address] Eos Absolute 0.5 x10*3/mcL High 0.0-0.4 [facility] Comment on above: Performed By: #### . Automated Diff ####[address] [address] Eosinophils/100 WBC (Bld) 5.9 % Normal 0.0-6.1 [facility] Comment on above: Performed By: #### . Automated Diff ####[address] [address] Lymph Absolute 2.9 x10*3/mcL Normal 1.0-4.8 [facility] Comment on above: Performed By: #### . Automated Diff ####[address] [address] Lymphocytes/100 WBC (Bld) 33.0 % Normal 27.2-40.8 [facility] Comment on above: Performed By: #### . Automated Diff ####[address] [address] [place] Absolute 1.0 x10*3/mcL Normal 0.3-1.1 [facility] Comment on above: Performed By: #### . Automated Diff ####[address] [address] Monocytes/100 WBC (Bld) 10.9 % Normal 4.7-13.9 [facility] Comment on above: Performed By: #### . Automated Diff ####[address] [address] Neutro Absolute 4.4 x10*3/mcL Normal 1.8-7.7 [facility] Comment on above: Performed By: #### . Automated Diff ####[address] [address] Neutro Auto 49.9 % Normal 47.2-70.8 [facility] Comment on above: Performed By: #### . Automated Diff ####[address] [address] ED Clinical Summaryon 2023 ED Clinical Summary Normal [facility] ED Note-Physicianon 03-01-20 24 ED Note-Physician Normal [facility] Ethanolon 03-01-2024 Ethanol, Plasma <10 Normal <=9 [facility] Comment on above: Result Comment: To c onvert mg/dL to g/dL, divide result by 1,000. Legal limit of intoxication is 80 mg/dL (0.08 g/dL). Performed By: #### A LC ####[place] [id number] Magnesiumon 03-01-2024 Magnesium [Mass/Vol] 2.2 mg/dL Normal 1.7-2.4 [facility] Comment on above: Performed By: #### M G ####[address] [address] Myoglobinon 03-01-2024 Myoglobin [Mass/Vol] 49.9 ng/mL Normal [facility] Comment on above: Performed By: #### M YO ####[address] [address] PTon 03-01-2024 INR Coag (PPP) [Relative time] 1.0 {INR} Normal <=3.5 [facility] Comment on above: Result Comment: INR has no normal range. INR Therapeutic range is:2.0-3.0 (AF, CVA, TIAs, DVT prophylaxis, acute DVT)2.5-3.5 ([facility] heart valves, recurrent thrombosis/emboli) Performed By: #### P TINR ####[address] [address] PT Coag (PPP) [Time] 10.3 s Normal 9.2-12.0 [facility] Comment on above: Performed By: #### P TINR ####[address] [address] PTTon 03-01-2024 aPTT Coag (Bld) [Time] 23.2 s Normal 19.5-28.2 [facility] Comment on above: Performed By: #### P TT ####[place] [address] Strep A DNA Rapidon 03-01-20 S. pyogenes Ag IA Ql (Unsp spec) Negative Normal Negative [facility] Comment on above: Performed By: #### C D:[id number] ####[place] [address] Troponin-Ion 03-01-2024 Troponin I.cardiac [Mass/Vol] ng/mL Normal 0.00-0.03 [facility] Comment on above: Result Comment: An i ncreased Troponin-I value, in the absence of myocardial ischemia, may indicate other etiologies of cardiac damage. Performed By: #### T ROP ####[place] [address] UA w Culture if Indon 2023 Color (U) Light-Yellow Normal Yellow [facility] Comment on above: Performed By: #### U CI ####[place] [id number] Ketones Ql (U) Negative Normal Negative [facility] Comment on above: Performed By: #### U CI ####[address] [address] UA Blood Negative Normal Negative [facility] Comment on above: Performed By: #### U CI ####[address] [address] UA Clarity Clear Normal Clear [facility] Comment on above: Performed By: #### U CI ####[address] [address] UA Glucose Normal Normal Negative [facility] Comment on above: Performed By: #### U CI ####[place] [id number] UA Leukocyte Esterase Negative Normal Negative [facility] Comment on above: Performed By: #### U CI ####[address] [address] UA Nitrite Negative Normal Negative [facility] Comment on above: Performed By: #### U CI ####[address] [address] UA pH 6.0 Normal 4.5 - 7.8 [facility] Comment on above: Performed By: #### U CI ####[address] [address] UA Protein Negative Normal Negative [facility] Comment on above: Performed By: #### U CI ####[address] [address] UA Source Clean Catch Normal [facility] Comment on above: Performed By: #### U CI ####[address] [address] UA Spec Grav 1.006 Normal 1.003-1.035 [facility] Comment on above: Performed By: #### U CI ####[address] [address] UA Urobilinogen Normal Normal 0.2 - 1.0 [facility] Comment on above: Performed By: #### U CI ####[address] [address] Urobilinogen (U) [Mass/Vol] Negative Normal Negative [facility] Comment on above: Performed By: #### U CI ####[address] [address] UDS Compon 03-01-2024 Creatinine [Mass/Vol] 51.2 mg/dL Normal [facility] Comment on above: Performed By: #### C D:[id number] ####[address] [address] Ur Amph Scrn Positive Abnormal NEG = <1000 [facility] Comment on above: Result Comment: This unconfirmed positive screening result is to be used for medical treatment purposes only. Unconfirmed screening results must not be used for non-medical purposes (e.g. employment testing, legal testing). Performed By: #### C D:[id number] ####[address] [address] Ur Yenifer Scrn Negative Normal NEG = <200 [facility] Comment on above: Performed By: #### C D:[id number] ####[address] [address] Ur Benzodia Scrn Positive Abnormal NEG = <200 [facility] Comment on above: Result Comment: This unconfirmed positive screening result is to be used for medical treatment purposes only. Unconfirmed screening results must not be used for non-medical purposes (e.g. employment testing, legal testing). Performed By: #### C D:[id number] ####[place] [id number] Ur Cannab Scrn Positive Abnormal NEG = <50 [facility] Comment on above: Result Comment: This unconfirmed positive screening result is to be used for medical treatment purposes only. Unconfirmed screening results must not be used for non-medical purposes (e.g. employment testing, legal testing). Performed By: #### C D:[id number] ####[address] [address] Ur Cocaine Scrn Negative Normal NEG = <300 [facility] Comment on above: Performed By: #### C D:[id number] ####[address] [address] Ur Methadone Scn Negative Normal NEG = <300 [facility] Comment on above: Performed By: #### C D:[id number] ####[address] [address] Ur Opiate Scrn Negative Normal NEG = <300 [facility] Comment on above: Performed By: #### C D:[id number] ####[address] [address] Ur Oxy Screen Negative Normal NEG = <100 [facility] Comment on above: Performed By: #### C D:[id number] ####[address] [address] Ur Oxy Scrn Qnt 14 ng/mL Normal <=99 [facility] Comment on above: Performed By: #### C D:[id number] ####[address] [address] Ur PCP Scrn Negative Normal NEG = <25 [facility] Comment on above: Performed By: #### C D:[id number] ####[address] [address] UA pH 6.0 Normal 4.5 - 7.8 [facility] Comment on above: Performed By: #### C D:[id number] ####[address] [address] UA Spec Grav 1.005 Normal 1.003-1.035 [facility] Comment on above: Performed By: #### C D:[id number] ####[address] [address] XR Chest 1 Viewon 03-01-2024 XR Chest 1 View Normal [facility] .eGFRon 01-17-2024 GFR/1.73 sq M.predicted MDRD (S/P/Bld) [Vol rate/Area] mL/min/{1.73_m2} Normal >=60 [facility] Comment on above: Result Comment: [facility] have implemented the eGFR calculation approach that does not have a coefficient for race and that conforms to the NKF-ASN Task Force Recommendations.Stages of Chronic Kidney Disease GFRStage 3a Mild to moderate loss of kidney function 59 to 45Stage 3b Moderate to severe loss of kidney function 44 to 33Stage 4 Severe loss of kidney function 29 to 15Stage 5 Kidney failure Less than 15GFR calculated using the CKD-Epi Creatinine Equation (2020):eGFR = 142 X min(SCr/?, 1)? X max(SCr /?, 1)-1.200 X 0.9938Age X 1.012 [if female]Abbreviations/Units:eGFR (estimated glomerular filtration rate) = mL/min/1.73 m2SCr (standardized serum creatinine) = mg/dL? = 0.7 (females) or 0.9 (males)? = -0.241 (females) or -0.302 (males)min = indicates the minimum of SCr/? or 1max = indicates the maximum of SCr/? or 1Age = years Performed By: #### E GFR ####[address] [address] CBC w/ Diffon 01-17-2024 Erythrocyte distribution width (RBC) [Ratio] 13.8 % Normal 11.6-14.8 [facility] Comment on above: Performed By: #### C BC ####[place] [id number] Hematocrit (Bld) [Volume fraction] 43.3 % Normal 41.0-53.0 [facility] Comment on above: Performed By: #### C BC ####[place] [id number] Hemoglobin (Bld) [Mass/Vol] 14.6 g/dL Normal 13.5-17.5 [facility] Comment on above: Performed By: #### C BC ####[address] [address] MCH (RBC) [Entitic mass] 30.7 pg Normal 27.0-35.0 [facility] Comment on above: Performed By: #### C BC ####[place] [id number] MCHC 33.8 % Normal 31.0-37.0 [facility] Comment on above: Performed By: #### C BC ####[address] [address] MCV (RBC) [Entitic vol] 91.0 fL Normal 80.0-100.0 [facility] Comment on above: Performed By: #### C BC ####[address] [address] Platelet 201 x10*3/mcL Normal 150-450 [facility] Comment on above: Performed By: #### C BC ####[address] [address] Platelet mean volume (Bld) [Entitic vol] 7.8 fL Normal 6.7-10.6 [facility] Comment on above: Performed By: #### C BC ####[address] [address] RBC 4.75 x10*6/mcL Normal 4.30-5.80 [facility] Comment on above: Performed By: #### C BC ####[address] [address] WBC 7.2 x10*3/mcL Normal 4.5-11.0 [facility] Comment on above: Performed By: #### C BC ####[address] [address] CMPon 01-17-2024 Albumin [Mass/Vol] 3.4 g/dL Normal 3.2-4.9 [facility] Comment on above: Performed By: #### C OMP ####[address] [address] Albumin/Globulin [Mass ratio] 1.2 {ratio} Normal 1.1-2.2 [facility] Comment on above: Performed By: #### C OMP ####[address] [address] Alk Phos 51 IU/L Normal 32-91 [facility] Comment on above: Performed By: #### C OMP ####[address] [address] ALT [Catalytic activity/Vol] 25 U/L Normal 17-63 [facility] Comment on above: Performed By: #### C OMP ####[address] [address] Anion gap [Moles/Vol] 7 mmol/L Normal 4-12 [facility] Comment on above: Performed By: #### C OMP ####[address] [address] AST [Catalytic activity/Vol] 26 U/L Normal 15-41 [facility] Comment on above: Performed By: #### C OMP ####[address] [address] Bili Total 0.5 mg/dL Normal 0.3-1.2 [facility] Comment on above: Performed By: #### C OMP ####[address] [address] Calcium [Mass/Vol] 8.7 mg/dL Normal 8.5-10.3 [facility] Comment on above: Performed By: #### C OMP ####[address] [address] Chloride [Moles/Vol] 103 mmol/L Normal 98-110 [facility] Comment on above: Performed By: #### C OMP ####[address] [address] CO2 [Moles/Vol] 29 mmol/L Normal 22-32 [facility] Comment on above: Performed By: #### C OMP ####[address] [address] Creatinine [Mass/Vol] 0.97 mg/dL Normal 0.61-1.24 [facility] Comment on above: Performed By: #### C OMP ####[address] [address] Glucose [Mass/Vol] 96 mg/dL Normal 70-99 [facility] Comment on above: Performed By: #### C OMP ####[address] [address] Potassium [Moles/Vol] 4.0 mmol/L Normal 3.4-4.8 [facility] Comment on above: Performed By: #### C OMP ####[address] [address] Protein [Mass/Vol] 6.2 g/dL Low 6.5-8.1 [facility] Comment on above: Performed By: #### C OMP ####[address] [address] Sodium [Moles/Vol] 139 mmol/L Normal 133-142 [facility] Comment on above: Performed By: #### C OMP ####[address] [address] Urea nitrogen [Mass/Vol] 17 mg/dL Normal 8-26 [facility] Comment on above: Performed By: #### C OMP ####[address] [address] Urea nitrogen/Creatinine [Mass ratio] 17.5 mg/mg Normal 10.0-20.0 [facility] Comment on above: Performed By: #### C OMP ####[address] [address] Diff Autoon 01-17-2024 Baso Absolute 0.1 x10*3/mcL Normal 0.0-0.2 [facility] Comment on above: Performed By: #### . Automated Diff ####[address] [address] Basophils/100 WBC (Bld) 1.5 % High 0.0-1.2 [facility] Comment on above: Performed By: #### . Automated Diff ####[address] [address] Eos Absolute 0.5 x10*3/mcL High 0.0-0.4 [facility] Comment on above: Performed By: #### . Automated Diff ####[address] [address] Eosinophils/100 WBC (Bld) 6.4 % High 0.0-6.1 [facility] Comment on above: Performed By: #### . Automated Diff ####[address] [address] Lymph Absolute 2.6 x10*3/mcL Normal 1.0-4.8 [facility] Comment on above: Performed By: #### . Automated Diff ####[address] [place] [address] Lymphocytes/100 WBC (Bld) 36.0 % Normal 27.2-40.8 [facility] Comment on above: Performed By: #### . Automated Diff ####[place] [id number] [place] Absolute 0.8 x10*3/mcL Normal 0.3-1.1 [facility] Comment on above: Performed By: #### . Automated Diff ####[place] [id number] Monocytes/100 WBC (Bld) 11.1 % Normal 4.7-13.9 [facility] Comment on above: Performed By: #### . Automated Diff ####[place] [id number] Neutro Absolute 3.2 x10*3/mcL Normal 1.8-7.7 [facility] Comment on above: Performed By: #### . Automated Diff ####[place] [address] Neutro Auto 45.0 % Low 47.2-70.8 [facility] Comment on above: Performed By: #### . Automated Diff ####[place] [id number] Inpatient Clinical Summaryon 01-17-2024 Inpatient Clinical Summary Normal [facility] Magnesiumon 01-17-2024 Magnesium [Mass/Vol] 2.2 mg/dL Normal 1.7-2.4 [facility] Comment on above: Performed By: #### M G ####[place] [address] Progress Note-Nurseon 2023 Progress Note-Nurse Normal [facility] .eGFRon 01-16-2024 GFR/1.73 sq M.predicted MDRD (S/P/Bld) [Vol rate/Area] mL/min/{1.73_m2} Normal >=60 [facility] Comment on above: Result Comment: [facility] have implemented the eGFR calculation approach that does not have a coefficient for race and that conforms to the NKF-ASN Task Force Recommendations.Stages of Chronic Kidney Disease GFRStage 3a Mild to moderate loss of kidney function 59 to 45Stage 3b Moderate to severe loss of kidney function 44 to 33Stage 4 Severe loss of kidney function 29 to 15Stage 5 Kidney failure Less than 15GFR calculated using the CKD-Epi Creatinine Equation (2020):eGFR = 142 X min(SCr/?, 1)? X max(SCr /?, 1)-1.200 X 0.9938Age X 1.012 [if female]Abbreviations/Units:eGFR (estimated glomerular filtration rate) = mL/min/1.73 m2SCr (standardized serum creatinine) = mg/dL? = 0.7 (females) or 0.9 (males)? = -0.241 (females) or -0.302 (males)min = indicates the minimum of SCr/? or 1max = indicates the maximum of SCr/? or 1Age = years Performed By: #### E GFR ####[place] [address] CBC w/ Diffon 01-16-2024 Erythrocyte distribution width (RBC) [Ratio] 13.7 % Normal 11.6-14.8 [facility] Comment on above: Performed By: #### C BC ####[place] [id number] Hematocrit (Bld) [Volume fraction] 43.7 % Normal 41.0-53.0 [facility] Comment on above: Performed By: #### C BC ####[place] [id number] Hemoglobin (Bld) [Mass/Vol] 14.8 g/dL Normal 13.5-17.5 [facility] Comment on above: Performed By: #### C BC ####[place] [id number] MCH (RBC) [Entitic mass] 30.8 pg Normal 27.0-35.0 [facility] Comment on above: Performed By: #### C BC ####[place] [id number] MCHC 33.8 % Normal 31.0-37.0 [facility] Comment on above: Performed By: #### C BC ####[address] [address] MCV (RBC) [Entitic vol] 91.2 fL Normal 80.0-100.0 [facility] Comment on above: Performed By: #### C BC ####[address] [address] Platelet 192 x10*3/mcL Normal 150-450 [facility] Comment on above: Performed By: #### C BC ####[address] [address] Platelet mean volume (Bld) [Entitic vol] 7.5 fL Normal 6.7-10.6 [facility] Comment on above: Performed By: #### C BC ####[address] [address] RBC 4.79 x10*6/mcL Normal 4.30-5.80 [facility] Comment on above: Performed By: #### C BC ####[address] [address] WBC 5.9 x10*3/mcL Normal 4.5-11.0 [facility] Comment on above: Performed By: #### C BC ####[address] [address] CMPon 01-16-2024 Albumin [Mass/Vol] 3.7 g/dL Normal 3.2-4.9 [facility] Comment on above: Performed By: #### C OMP ####[address] [address] Albumin/Globulin [Mass ratio] 1.1 {ratio} Normal 1.1-2.2 [facility] Comment on above: Performed By: #### C OMP ####[address] [address] Alk Phos 54 IU/L Normal 32-91 [facility] Comment on above: Performed By: #### C OMP ####[address] [address] ALT [Catalytic activity/Vol] 27 U/L Normal 17-63 [facility] Comment on above: Performed By: #### C OMP ####[address] [address] Anion gap [Moles/Vol] 8 mmol/L Normal 4-12 [facility] Comment on above: Performed By: #### C OMP ####[address] [address] AST [Catalytic activity/Vol] 24 U/L Normal 15-41 [facility] Comment on above: Performed By: #### C OMP ####[address] [address] Bili Total 1.0 mg/dL Normal 0.3-1.2 [facility] Comment on above: Performed By: #### C OMP ####[address] [address] Calcium [Mass/Vol] 8.6 mg/dL Normal 8.5-10.3 [facility] Comment on above: Performed By: #### C OMP ####[address] [address] Chloride [Moles/Vol] 101 mmol/L Normal 98-110 [facility] Comment on above: Performed By: #### C OMP ####[address] [address] CO2 [Moles/Vol] 28 mmol/L Normal 22-32 [facility] Comment on above: Performed By: #### C OMP ####[address] [address] Creatinine [Mass/Vol] 0.84 mg/dL Normal 0.61-1.24 [facility] Comment on above: Performed By: #### C OMP ####[address] [address] Glucose [Mass/Vol] 98 mg/dL Normal 70-99 [facility] Comment on above: Performed By: #### C OMP ####[address] [address] Potassium [Moles/Vol] 4.0 mmol/L Normal 3.4-4.8 [facility] Comment on above: Performed By: #### C OMP ####[address] [address] Protein [Mass/Vol] 7.1 g/dL Normal 6.5-8.1 [facility] Comment on above: Performed By: #### C OMP ####[address] [address] Sodium [Moles/Vol] 137 mmol/L Normal 133-142 [facility] Comment on above: Performed By: #### C OMP ####[address] [address] Urea nitrogen [Mass/Vol] 18 mg/dL Normal 8-26 [facility] Comment on above: Performed By: #### C OMP ####[address] [address] Urea nitrogen/Creatinine [Mass ratio] 21.4 mg/mg High 10.0-20.0 [facility] Comment on above: Performed By: #### C OMP ####[address] [address] Diff Autoon 01-16-2024 Baso Absolute 0.1 x10*3/mcL Normal 0.0-0.2 [facility] Comment on above: Performed By: #### . Automated Diff ####[address] [address] Basophils/100 WBC (Bld) 1.5 % High 0.0-1.2 [facility] Comment on above: Performed By: #### . Automated Diff ####[address] [address] Eos Absolute 0.4 x10*3/mcL Normal 0.0-0.4 [facility] Comment on above: Performed By: #### . Automated Diff ####[address] [address] Eosinophils/100 WBC (Bld) 6.4 % High 0.0-6.1 [facility] Comment on above: Performed By: #### . Automated Diff ####[address] [address] Lymph Absolute 2.1 x10*3/mcL Normal 1.0-4.8 [facility] Comment on above: Performed By: #### . Automated Diff ####[address] [address] Lymphocytes/100 WBC (Bld) 35.9 % Normal 27.2-40.8 [facility] Comment on above: Performed By: #### . Automated Diff ####[address] [address] [place] Absolute 0.6 x10*3/mcL Normal 0.3-1.1 [facility] Comment on above: Performed By: #### . Automated Diff ####[address] [address] Monocytes/100 WBC (Bld) 9.4 % Normal 4.7-13.9 [facility] Comment on above: Performed By: #### . Automated Diff ####[address] [address] Neutro Absolute 2.8 x10*3/mcL Normal 1.8-7.7 [facility] Comment on above: Performed By: #### . Automated Diff ####[address] [address] Neutro Auto 46.8 % Low 47.2-70.8 [facility] Comment on above: Performed By: #### . Automated Diff ####[address] [address] Magnesiumon 01-16-2024 Magnesium [Mass/Vol] 2.3 mg/dL Normal 1.7-2.4 [facility] Comment on above: Performed By: #### M G ####[address] [address] Progress Note-Nurseon 2023 Progress Note-Nurse Normal [facility] .eGFRon 01-15-2024 GFR/1.73 sq M.predicted MDRD (S/P/Bld) [Vol rate/Area] mL/min/{1.73_m2} Normal >=60 [facility] Comment on above: Result Comment: [facility] have implemented the eGFR calculation approach that does not have a coefficient for race and that conforms to the NKF-ASN Task Force Recommendations.Stages of Chronic Kidney Disease GFRStage 3a Mild to moderate loss of kidney function 59 to 45Stage 3b Moderate to severe loss of kidney function 44 to 33Stage 4 Severe loss of kidney function 29 to 15Stage 5 Kidney failure Less than 15GFR calculated using the CKD-Epi Creatinine Equation (2020):eGFR = 142 X min(SCr/?, 1)? X max(SCr /?, 1)-1.200 X 0.9938Age X 1.012 [if female]Abbreviations/Units:eGFR (estimated glomerular filtration rate) = mL/min/1.73 m2SCr (standardized serum creatinine) = mg/dL? = 0.7 (females) or 0.9 (males)? = -0.241 (females) or -0.302 (males)min = indicates the minimum of SCr/? or 1max = indicates the maximum of SCr/? or 1Age = years Performed By: #### E GFR ####[address] [address] CBC w/ Diffon 01-15-2024 Erythrocyte distribution width (RBC) [Ratio] 13.8 % Normal 11.6-14.8 [facility] Comment on above: Performed By: #### C BC ####[address] [address] Hematocrit (Bld) [Volume fraction] 42.0 % Normal 41.0-53.0 [facility] Comment on above: Performed By: #### C BC ####[address] [address] Hemoglobin (Bld) [Mass/Vol] 14.2 g/dL Normal 13.5-17.5 [facility] Comment on above: Performed By: #### C BC ####[address] [address] MCH (RBC) [Entitic mass] 30.7 pg Normal 27.0-35.0 [facility] Comment on above: Performed By: #### C BC ####[address] [address] MCHC 33.7 % Normal 31.0-37.0 [facility] Comment on above: Performed By: #### C BC ####[address] [address] MCV (RBC) [Entitic vol] 91.2 fL Normal 80.0-100.0 [facility] Comment on above: Performed By: #### C BC ####[address] [address] Platelet 208 x10*3/mcL Normal 150-450 [facility] Comment on above: Performed By: #### C BC ####[address] [address] Platelet mean volume (Bld) [Entitic vol] 7.6 fL Normal 6.7-10.6 [facility] Comment on above: Performed By: #### C BC ####[address] [address] RBC 4.61 x10*6/mcL Normal 4.30-5.80 [facility] Comment on above: Performed By: #### C BC ####[address] [address] WBC 6.8 x10*3/mcL Normal 4.5-11.0 [facility] Comment on above: Performed By: #### C BC ####[address] [address] CMPon 01-15-2024 Albumin [Mass/Vol] 3.6 g/dL Normal 3.2-4.9 [facility] Comment on above: Performed By: #### C OMP ####[address] [address] Albumin/Globulin [Mass ratio] 1.2 {ratio} Normal 1.1-2.2 [facility] Comment on above: Performed By: #### C OMP ####[address] [address] Alk Phos 48 IU/L Normal 32-91 [facility] Comment on above: Performed By: #### C OMP ####[address] [address] ALT [Catalytic activity/Vol] 27 U/L Normal 17-63 [facility] Comment on above: Performed By: #### C OMP ####[address] [address] Anion gap [Moles/Vol] 8 mmol/L Normal 4-12 [facility] Comment on above: Performed By: #### C OMP ####[address] [address] AST [Catalytic activity/Vol] 28 U/L Normal 15-41 [facility] Comment on above: Performed By: #### C OMP ####[address] [address] Bili Total 0.9 mg/dL Normal 0.3-1.2 [facility] Comment on above: Performed By: #### C OMP ####[address] [address] Calcium [Mass/Vol] 8.2 mg/dL Low 8.5-10.3 [facility] Comment on above: Performed By: #### C OMP ####[address] [address] Chloride [Moles/Vol] 104 mmol/L Normal 98-110 [facility] Comment on above: Performed By: #### C OMP ####[address] [address] CO2 [Moles/Vol] 26 mmol/L Normal 22-32 [facility] Comment on above: Performed By: #### C OMP ####[address] [address] Creatinine [Mass/Vol] 0.95 mg/dL Normal 0.61-1.24 [facility] Comment on above: Performed By: #### C OMP ####[address] [address] Glucose [Mass/Vol] 84 mg/dL Normal 70-99 [facility] Comment on above: Performed By: #### C OMP ####[address] [address] Potassium [Moles/Vol] 3.7 mmol/L Normal 3.4-4.8 [facility] Comment on above: Performed By: #### C OMP ####[address] [address] Protein [Mass/Vol] 6.6 g/dL Normal 6.5-8.1 [facility] Comment on above: Performed By: #### C OMP ####[address] [address] Sodium [Moles/Vol] 138 mmol/L Normal 133-142 [facility] Comment on above: Performed By: #### C OMP ####[address] [address] Urea nitrogen [Mass/Vol] 19 mg/dL Normal 8-26 [facility] Comment on above: Performed By: #### C OMP ####[address] [address] Urea nitrogen/Creatinine [Mass ratio] 20.0 mg/mg Normal 10.0-20.0 [facility] Comment on above: Performed By: #### C OMP ####[address] [address] Diff Autoon 01-15-2024 Baso Absolute 0.0 x10*3/mcL Normal 0.0-0.2 [facility] Comment on above: Performed By: #### . Automated Diff ####[address] [address] Basophils/100 WBC (Bld) 0.6 % Normal 0.0-1.2 [facility] Comment on above: Performed By: #### . Automated Diff ####[address] [address] Eos Absolute 0.4 x10*3/mcL Normal 0.0-0.4 [facility] Comment on above: Performed By: #### . Automated Diff ####[address] [address] Eosinophils/100 WBC (Bld) 5.7 % Normal 0.0-6.1 [facility] Comment on above: Performed By: #### . Automated Diff ####[address] [address] Lymph Absolute 2.4 x10*3/mcL Normal 1.0-4.8 [facility] Comment on above: Performed By: #### . Automated Diff ####[address] [address] Lymphocytes/100 WBC (Bld) 35.4 % Normal 27.2-40.8 [facility] Comment on above: Performed By: #### . Automated Diff ####[address] [address] [place] Absolute 0.8 x10*3/mcL Normal 0.3-1.1 [facility] Comment on above: Performed By: #### . Automated Diff ####[address] [address] Monocytes/100 WBC (Bld) 12.0 % Normal 4.7-13.9 [facility] Comment on above: Performed By: #### . Automated Diff ####[address] [address] Neutro Absolute 3.1 x10*3/mcL Normal 1.8-7.7 [facility] Comment on above: Performed By: #### . Automated Diff ####[address] [address] Neutro Auto 46.3 % Low 47.2-70.8 [facility] Comment on above: Performed By: #### . Automated Diff ####[place] [address] ED Clinical Summaryon 2023 ED Clinical Summary Normal [facility] Magnesiumon 01-15-2024 Magnesium [Mass/Vol] 2.1 mg/dL Normal 1.7-2.4 [facility] Comment on above: Performed By: #### M G ####[place] [address] .Fentanyl Scrn wo Conf,Uron 01-14-2024 Ur Fentanyl Scrn Negative Normal NEG <1.0 [facility] Comment on above: Performed By: #### C [id number] ####[place] [address] Ur Fentanyl Scrn Qnt 0.38 ng/mL Normal <=0.99 [facility] Comment on above: Performed By: #### C [id number] ####[place] [address] .UA Microscp Aon 01-14-2024 UA Mucus Present Normal Absent [facility] Comment on above: Performed By: #### . Urinalysis Microscopic Auto ####[place] [address] UA RBC Quant 0 /HPF Normal 0-5 [facility] Comment on above: Performed By: #### . Urinalysis Microscopic Auto ####[place] [address] UA WBC Quant 0 /HPF Normal 0-5 [facility] Comment on above: Performed By: #### . Urinalysis Microscopic Auto ####[place] [address] .eGFRon 01-14-2024 GFR/1.73 sq M.predicted MDRD (S/P/Bld) [Vol rate/Area] mL/min/{1.73_m2} Normal >=60 [facility] Comment on above: Result Comment: [facility] have implemented the eGFR calculation approach that does not have a coefficient for race and that conforms to the NKF-ASN Task Force Recommendations.Stages of Chronic Kidney Disease GFRStage 3a Mild to moderate loss of kidney function 59 to 45Stage 3b Moderate to severe loss of kidney function 44 to 33Stage 4 Severe loss of kidney function 29 to 15Stage 5 Kidney failure Less than 15GFR calculated using the CKD-Epi Creatinine Equation (2020):eGFR = 142 X min(SCr/?, 1)? X max(SCr /?, 1)-1.200 X 0.9938Age X 1.012 [if female]Abbreviations/Units:eGFR (estimated glomerular filtration rate) = mL/min/1.73 m2SCr (standardized serum creatinine) = mg/dL? = 0.7 (females) or 0.9 (males)? = -0.241 (females) or -0.302 (males)min = indicates the minimum of SCr/? or 1max = indicates the maximum of SCr/? or 1Age = years Performed By: #### E GFR ####[address] [address] Basic Metabolic Profileon Anion gap [Moles/Vol] 11 mmol/L Normal 4-12 [facility] Comment on above: Performed By: #### C [id number] ####[address] [address] Calcium [Mass/Vol] 9.1 mg/dL Normal 8.5-10.3 [facility] Comment on above: Performed By: #### C [id number] ####[address] [address] Chloride [Moles/Vol] 102 mmol/L Normal 98-110 [facility] Comment on above: Performed By: #### C [id number] ####[address] [address] CO2 [Moles/Vol] 25 mmol/L Normal 22-32 [facility] Comment on above: Performed By: #### C [id number] ####[place] [address] [place] [address] Creatinine [Mass/Vol] 0.92 mg/dL Normal 0.61-1.24 [facility] Comment on above: Performed By: #### C [id number] ####[address] [address] Glucose [Mass/Vol] 90 mg/dL Normal 70-99 [facility] Comment on above: Performed By: #### C [id number] ####[address] [address] Potassium [Moles/Vol] 4.0 mmol/L Normal 3.4-4.8 [facility] Comment on above: Performed By: #### C [id number] ####[address] [address] Sodium [Moles/Vol] 138 mmol/L Normal 133-142 [facility] Comment on above: Performed By: #### C [id number] ####[address] [address] Urea nitrogen [Mass/Vol] 18 mg/dL Normal 8-26 [facility] Comment on above: Performed By: #### C [id number] ####[address] [address] Urea nitrogen/Creatinine [Mass ratio] 19.6 mg/mg Normal 10.0-20.0 [facility] Comment on above: Performed By: #### C [id number] ####[address] [address] CBC w/ Diffon 01-14-2024 Erythrocyte distribution width (RBC) [Ratio] 13.4 % Normal 11.6-14.8 [facility] Comment on above: Performed By: #### C BC ####[address] [address] Hematocrit (Bld) [Volume fraction] 45.0 % Normal 41.0-53.0 [facility] Comment on above: Performed By: #### C BC ####[address] [address] Hemoglobin (Bld) [Mass/Vol] 15.4 g/dL Normal 13.5-17.5 [facility] Comment on above: Performed By: #### C BC ####[address] [address] MCH (RBC) [Entitic mass] 31.0 pg Normal 27.0-35.0 [facility] Comment on above: Performed By: #### C BC ####[address] [address] MCHC 34.3 % Normal 31.0-37.0 [facility] Comment on above: Performed By: #### C BC ####[address] [address] MCV (RBC) [Entitic vol] 90.2 fL Normal 80.0-100.0 [facility] Comment on above: Performed By: #### C BC ####[address] [address] Platelet 243 x10*3/mcL Normal 150-450 [facility] Comment on above: Performed By: #### C BC ####[address] [address] Platelet mean volume (Bld) [Entitic vol] 7.6 fL Normal 6.7-10.6 [facility] Comment on above: Performed By: #### C BC ####[address] [address] RBC 4.98 x10*6/mcL Normal 4.30-5.80 [facility] Comment on above: Performed By: #### C BC ####[address] [address] WBC 7.8 x10*3/mcL Normal 4.5-11.0 [facility] Comment on above: Performed By: #### C BC ####[address] [address] COV19 Rapidon 01-14-2024 LAB ONLY Result Called? No Normal [facility] Comment on above: Performed By: #### C [id number] ####[address] [address] Reason for Rapid Test Inpatient Normal [facility] Comment on above: Performed By: #### C [id number] ####[address] [address] SARS-CoV-2 (COVID-19) RNA BRITTANY+probe Ql (Unsp spec) Negative Normal Negative [facility] Comment on above: Result Comment: The 2019 novel coronavirus SARS-CoV-2 target nucleic acids are not detected.This test is for the detection of SARS-CoV-2 RNA. Positive results are indicative of active infection with SARS-CoV-2. Positive results do not rule out bacterial infection or co-infection with other viruses. Negative results should be treated as presumptive and, if inconsistent with clinical signs and symptoms or necessary for patient management, should be tested with an alternative molecular assay.Negative results do not preclude SARS-CoV-2 infection and should not be used as the sole basis for treatment or other patient management decisions. Clinical correlation with patient history and other diagnostic information is necessary to determine patient infection status.ID NOW COVID-19 2.0 assay performed on the ID NOW Instrument is a rapid molecular in vitro diagnostic test utilizing an isothermal nucleic acid amplification technology (NAAT) intended for the qualitative detection of nucleic acid from SARS-CoV-2 in direct anterior nasal (nasal) or nasopharyngeal swab specimens from individuals with signs and symptoms of respiratory tract infection. Performed By: #### C [id number] ####[address] [address] Diff Autoon 01-14-2024 Baso Absolute 0.1 x10*3/mcL Normal 0.0-0.2 [facility] Comment on above: Performed By: #### . Automated Diff ####[address] [address] Basophils/100 WBC (Bld) 1.4 % High 0.0-1.2 [facility] Comment on above: Performed By: #### . Automated Diff ####[address] [address] Eos Absolute 0.2 x10*3/mcL Normal 0.0-0.4 [facility] Comment on above: Performed By: #### . Automated Diff ####[address] [address] Eosinophils/100 WBC (Bld) 2.2 % Normal 0.0-6.1 [facility] Comment on above: Performed By: #### . Automated Diff ####[address] [address] Lymph Absolute 2.3 x10*3/mcL Normal 1.0-4.8 [facility] Comment on above: Performed By: #### . Automated Diff ####[address] [address] Lymphocytes/100 WBC (Bld) 29.0 % Normal 27.2-40.8 [facility] Comment on above: Performed By: #### . Automated Diff ####[address] [address] [place] Absolute 0.7 x10*3/mcL Normal 0.3-1.1 [facility] Comment on above: Performed By: #### . Automated Diff ####[address] [address] Monocytes/100 WBC (Bld) 9.3 % Normal 4.7-13.9 [facility] Comment on above: Performed By: #### . Automated Diff ####[address] [address] Neutro Absolute 4.5 x10*3/mcL Normal 1.8-7.7 [facility] Comment on above: Performed By: #### . Automated Diff ####[address] [address] Neutro Auto 58.1 % Normal 47.2-70.8 [facility] Comment on above: Performed By: #### . Automated Diff ####[address] [address] ED Note-Physicianon 01-14-20 ED Note-Physician Normal [facility] Ethanolon 01-14-2024 Ethanol, Plasma 45 mg/dL High <=9 [facility] Comment on above: Result Comment: To c onvert mg/dL to g/dL, divide result by 1,000. Legal limit of intoxication is 80 mg/dL (0.08 g/dL). Performed By: #### A LC ####[place] [id number] UA w Culture if Indon 2023 Color (U) Light-Yellow Normal Yellow [facility] Comment on above: Performed By: #### U CI ####[address] [address] Ketones Ql (U) Negative Normal Negative [facility] Comment on above: Performed By: #### U CI ####[address] [address] UA Blood Negative Normal Negative [facility] Comment on above: Performed By: #### U CI ####[address] [address] UA Clarity Clear Normal Clear [facility] Comment on above: Performed By: #### U CI ####[address] [address] UA Glucose Normal Normal Negative [facility] Comment on above: Performed By: #### U CI ####[address] [address] UA Leukocyte Esterase Negative Normal Negative [facility] Comment on above: Performed By: #### U CI ####[address] [address] UA Nitrite Negative Normal Negative [facility] Comment on above: Performed By: #### U CI ####[address] [address] UA pH 5.5 Normal 4.5 - 7.8 [facility] Comment on above: Performed By: #### U CI ####[address] [address] UA Protein Negative Normal Negative [facility] Comment on above: Performed By: #### U CI ####[address] [address] UA Source Clean Catch Normal [facility] Comment on above: Performed By: #### U CI ####[address] [address] UA Spec Grav 1.016 Normal 1.003-1.035 [facility] Comment on above: Performed By: #### U CI ####[address] [address] UA Urobilinogen Normal Normal 0.2 - 1.0 [facility] Comment on above: Performed By: #### U CI ####[place] [id number] Urobilinogen (U) [Mass/Vol] Negative Normal Negative [facility] Comment on above: Performed By: #### U CI ####[address] [address] UDS Compon 01-14-2024 Creatinine [Mass/Vol] 60.3 mg/dL Normal [facility] Comment on above: Performed By: #### C D:[id number] ####[address] [address] Ur Amph Scrn Negative Normal NEG = <1000 [facility] Comment on above: Performed By: #### C D:[id number] ####[address] [address] Ur Yenifer Scrn Negative Normal NEG = <200 [facility] Comment on above: Performed By: #### C D:[id number] ####[address] [address] Ur Benzodia Scrn Positive Abnormal NEG = <200 [facility] Comment on above: Result Comment: This unconfirmed positive screening result is to be used for medical treatment purposes only. Unconfirmed screening results must not be used for non-medical purposes (e.g. employment testing, legal testing). Performed By: #### C D:[id number] ####[address] [address] Ur Cannab Scrn Positive Abnormal NEG = <50 [facility] Comment on above: Result Comment: This unconfirmed positive screening result is to be used for medical treatment purposes only. Unconfirmed screening results must not be used for non-medical purposes (e.g. employment testing, legal testing). Performed By: #### C D:[id number] ####[address] [address] Ur Cocaine Scrn Negative Normal NEG = <300 [facility] Comment on above: Performed By: #### C D:[id number] ####[address] [address] Ur Methadone Scn Negative Normal NEG = <300 [facility] Comment on above: Performed By: #### C D:[id number] ####[address] [address] Ur Opiate Scrn Negative Normal NEG = <300 [facility] Comment on above: Performed By: #### C D:[id number] ####[address] [address] Ur Oxy Screen Negative Normal NEG = <100 [facility] Comment on above: Performed By: #### C D:[id number] ####[address] [address] Ur Oxy Scrn Qnt 0 ng/mL Normal <=99 [facility] Comment on above: Performed By: #### C D:[id number] ####[address] [address] Ur PCP Scrn Negative Normal NEG = <25 [facility] Comment on above: Performed By: #### C D:[id number] ####[address] [address] UA pH 5.5 Normal 4.5 - 7.8 [facility] Comment on above: Performed By: #### C D:[id number] ####[address] [place] [address] UA Spec Grav 1.016 Normal 1.003-1.035 [facility] Comment on above: Performed By: #### C D:[id number] ####[address] [place] [address] ACETAMINOPHENon 01-07-2024 Acetaminophen [Mass/Vol] ug/mL Low 10.0-30.0 [facility] Comment on above: Result Comment: Refe rence ranges are for therapeutic limits. Performed By: #### C ANA DAVIS, 3298-7, 4024-6, 5643-2 #### [facility] ([id number]) [address] [place] [address] #### 12975-3 #### [facility] ([id number]) [address] [place] [address], [address] [place] [address] BASIC METABOLIC PANLon 01-06 Anion gap [Moles/Vol] 6 mmol/L Normal 5-15 [facility] Comment on above: Performed By: #### C ANA DAVIS, 3298-7, 4024-6, 5643-2 #### [facility] ([id number]) [address] [place] [address] #### 64629-4 #### [facility] ([id number]) [address] [place] [address], [address] [place] [address] Calcium [Mass/Vol] 9.1 mg/dL Normal 8.5-10.5 [facility] Comment on above: Performed By: #### C ANA DAVIS, 3298-7, 4024-6, 5643-2 #### [facility] ([id number]) [address] [place] [address] #### 13103-7 #### [facility] ([id number]) [address], [address] [place] [address] Chloride [Moles/Vol] 106 mmol/L Normal 98-109 [facility] Comment on above: Performed By: #### C BCA, BMP, 3298-7, 4024-6, 5643-2 #### [facility] ([id number]) [address] [place] [address] #### 74493-9 #### [facility] ([id number]) [address] [facility], [address] [place] [address] CO2 [Moles/Vol] 27 mmol/L Normal 22-32 [facility] Comment on above: Performed By: #### C BCA, BMP, 3298-7, 4024-6, 5643-2 #### [facility] ([id number]) [address] [place] [address] #### 45158-2 #### [facility] ([id number]) [address] [facility], [address] [place] [address] Creatinine [Mass/Vol] 0.82 mg/dL Normal 0.60-1.30 [facility] Comment on above: Result Comment: METH OD TRACEABLE TO IDMS STANDARD Performed By: #### C BCA, BMP, 3298-7, 4024-6, 5643-2 #### [facility] ([id number]) [address] [place] [address] #### 58279-1 #### [facility] ([id number]) [address] [facility], [address] [place] [address] eGFR (CKD-EPI) NON-RACE DEPENDENT >90 Normal >59 [facility] Comment on above: Result Comment: Reported eGFR is based on the CKD-EPI 2020 equation that does not use a race coefficient. Performed By: #### C BCA, BMP, 3298-7, 4024-6, 5643-2 #### [facility] ([id number]) [address] [place] [address] #### 64865-0 #### [facility] ([id number]) [address] [place] [address], [address] [place] [address] Glucose [Mass/Vol] 96 mg/dL Normal 65-99 [facility] Comment on above: Performed By: #### C BCA, BMP, 3298-7, 4024-6, 5643-2 #### [facility] ([id number]) [address] [place] [address] #### 70075-0 #### [facility] ([id number]) [address] [place] [address], [facility] [address] [place] [address] Potassium [Moles/Vol] 4.2 mmol/L Normal 3.5-5.0 [facility] Comment on above: Performed By: #### C BCA, BMP, 3298-7, 4024-6, 5643-2 #### [facility] ([id number]) [address] [place] [address] #### 32520-8 #### [facility] ([id number]) [address] [place] [address] Sodium [Moles/Vol] 139 mmol/L Normal 134-146 [facility] Comment on above: Performed By: #### C BCA, BMP, 3298-7, 4024-6, 5643-2 #### [facility] ([id number]) [address] [place] [address] #### 45626-8 #### [facility] ([id number]) [address] [place] [address], [address] [place] [address] Urea nitrogen [Mass/Vol] 16 mg/dL Normal 5-23 [facility] Comment on above: Performed By: #### C BCA, BMP, 3298-7, 4024-6, 5643-2 #### [facility] ([id number]) [address] [place] [address] #### 77428-3 #### [facility] ([id number]) [address] [place] [address] [address] [place] [address] CBC AND AUTO DIFFon 01-07-20 24 ABSOLUTE BASOPHIL 0.1 X10E9/L Normal 0.0-0.2 [facility] Comment on above: Performed By: #### ANA Sheth BCA, 3298-7, 4024-6, 5643-2 #### [facility] ([id number]) [address] [place] [address] #### 66160-6 #### [facility] ([id number]) [address] [place] [address] ABSOLUTE NEUTROPHIL 4.4 X10E9/L Normal 1.5-6.6 [facility] Comment on above: Performed By: #### ANA Sheth BCA, 3298-7, 4024-6, 5643-2 #### [facility] ([id number]) [address] [place] [address] #### 51103-2 #### [facility] ([id number]) [address] [place] [address] Basophils/100 WBC (Bld) 1.3 % Normal [facility] Comment on above: Performed By: #### ANA Sheth BCA, 3298-7, 4024-6, 5643-2 #### [facility] ([id number]) [address] [place] [address] #### 71468-3 #### [facility] ([id number]) [address] [place] [address] Eosinophils (Bld) [#/Vol] 0.2 10*3/uL Normal 0.0-0.4 [facility] Comment on above: Performed By: #### Domenic DAVIS, BMP, 3298-7, 4024-6, 5643-2 #### [facility] ([id number]) [address] [place] [address] #### 97921-7 #### [facility] ([id number]) [address] [place] [address] Eosinophils/100 WBC (Bld) 2.9 % Normal [facility] Comment on above: Performed By: #### ANA Sheth BCA, 3298-7, 4024-6, 5643-2 #### [facility] ([id number]) [address] [place] [address] #### 70095-1 #### [facility] ([id number]) [address] [place] [address] Erythrocyte distribution width (RBC) [Ratio] 13.3 % Normal 11.5-15.0 [facility] Comment on above: Performed By: #### ANA Sheth BCA, 3298-7, 4024-6, 5643-2 #### [facility] ([id number]) [address] [place] [address] #### 66937-4 #### [facility] ([id number]) [address] [place] [address] Hematocrit (Bld) [Volume fraction] 43.5 % Normal 39-49 [facility] Comment on above: Performed By: #### ANA Sheth BCA, 3298-7, 4024-6, 5643-2 #### [facility] ([id number]) [address] [place] [address] #### 91145-1 #### [facility] ([id number]) [address] [place] [address] Hemoglobin (Bld) [Mass/Vol] 15.1 g/dL Normal 13.0-17.0 [facility] Comment on above: Performed By: #### ANA Sheth BCA, 3298-7, 4024-6, 5643-2 #### [facility] ([id number]) [address] [place] [address] #### 49167-5 #### [facility] ([id number]) [address] [facility], [address] [place] [address] Lymphocytes (Bld) [#/Vol] 2.1 10*3/uL Normal 1.0-3.5 [facility] Comment on above: Performed By: #### C BCA, BMP, 3298-7, 4024-6, 5643-2 #### [facility] ([id number]) [address] [place] [address] #### 62058-2 #### [facility] ([id number]) [address] [place] [address], [address] [address] Lymphocytes/100 WBC (Bld) 27.5 % Normal [facility] Comment on above: Performed By: #### C BCA, BMP, 329-7, 4023-6, 5643-2 #### [facility] ([id number]) [address] [place] [address] #### 11722-4 #### [facility] ([id number]) [address] [facility], [address] [address] MCH (RBC) [Entitic mass] 30.9 pg Normal 27-34 [facility] Comment on above: Performed By: #### C BCA, BMP, 329-7, 4023-6, 5643-2 #### [facility] ([id number]) [address] [place] [address] #### 47876-8 #### [facility] ([id number]) [address] [facility], [address] [place] [address] MCHC (RBC) [Mass/Vol] 34.7 g/dL Normal 32-36 [facility] Comment on above: Performed By: #### C BCA, BMP, 329-7, 4-6, 5643-2 #### [facility] ([id number]) [address] [place] [address] #### 26508-4 #### [facility] ([id number]) [address] [facility], [address] [place] [address] MCV (RBC) [Entitic vol] 89 fL Normal 80-100 [facility] Comment on above: Performed By: #### C BCA, BMP, 8-7, 4024-6, 5643-2 #### [facility] ([id number]) [address] [place] [address] #### 68336-9 #### [facility] ([id number]) [address] [facility], [address] [place] [address] Monocytes (Bld) [#/Vol] 0.9 10*3/uL Normal 0-0.9 [facility] Comment on above: Performed By: #### C BCA, BMP, 3297-7, 402-6, 5643-2 #### [facility] ([id number]) [address] [place] [address] #### 38383-6 #### [facility] ([id number]) [address] [facility], [address] [place] [address] Monocytes/100 WBC (Bld) 11.3 % Normal [facility] Comment on above: Performed By: #### C BCA, BMP, 3297-7, 4023-6, 5643-2 #### [facility] ([id number]) [address] [place] [address]35 #### 91058-3 #### [facility] ([id number]) [address] [facility], [address] [place] [address] Neutrophils/100 WBC (Bld) 57.0 % Normal [facility] Comment on above: Performed By: #### C BCA, BMP, 329-7, 4024-6, 5643-2 #### [facility] ([id number]) [address] [place] [address] #### 69597-0 #### [facility] ([id number]) [address] [place] [address], [facility] [address] [place] [address] Platelet mean volume (Bld) [Entitic vol] 7.8 fL Normal 7-12 [facility] Comment on above: Performed By: #### C ANA DAVIS, 3298-7, 4024-6, 5643-2 #### [facility] ([id number]) [address] [place] [address]31 #### 40865-7 #### [facility] ([id number]) [address] [place] [address] Platelets (Bld) [#/Vol] 246 10*3/uL Normal 150-450 [facility] Comment on above: Performed By: #### ANA Sheth BCA, 3298-7, 4024-6, 5643-2 #### [facility] ([id number]) [address] [place] [address] #### 92431-9 #### [facility] ([id number]) [address] [place] [address], [facility] [address] [place] [address] RBC COUNT 4.89 X10E12/L Normal 4.10-5.70 [facility] Comment on above: Performed By: #### ANA Sheth BCA, 3298-7, 4024-6, 5643-2 #### [facility] ([id number]) [address] [place] [address] 47765 #### 13427-6 #### [facility] ([id number]) [address] [place] [address] WBC (Bld) [#/Vol] 7.7 10*3/uL Normal 4.0-11.0 [facility] Comment on above: Performed By: #### ANA Sheth BCA, 3298-7, 4024-6, 5643-2 #### [facility] ([id number]) [address] [place] [address]20 #### 31501-9 #### [facility] ([id number]) [address] [place] [address], [address] [place] [address] DRUG SCREEN, URINEon 024 AMPHETAMINE/METHAMP Negative Normal NEG [facility] Comment on above: Result Comment: AMPH /METH screening cut off = 1000 ng/mL Performed By: #### D OLMEDO #### [facility] ([id number]) [address] [place] [address] BARBITURATES Negative Normal NEG [facility] Comment on above: Result Comment: Yenifer iturates screening cut off value = 200 ng/mL Performed By: #### D OLMEDO #### [facility] ([id number]) [address] [place] [address] BENZODIAZEPINES Positive Abnormal NEG [facility] Comment on above: Result Comment: Conf irmation available upon request. Benzodiazepines screening cut off value = 200 ng/mL Performed By: #### D OLMEDO #### [facility] ([id number]) [address] [place] [address] CANNABINOIDS Positive Abnormal NEG [facility] Comment on above: Result Comment: Conf irmation available upon request. Cannabinoids/THC screening cut off value = 50 ng/mL Performed By: #### D OLMEDO #### [facility] ([id number]) [address] [place] [address] COCAINE METABOLITE Negative Normal NEG [facility] Comment on above: Result Comment: Coca ine screening cut off value = 300 ng/mL Performed By: #### D OLMEDO #### [facility] ([id number]) [address] [place] [address] ECSTASY Negative Normal NEG [facility] Comment on above: Result Comment: Ecst asy screening cut off value = 500 ng/mL This report is intended for use in clinical monitoring or management of patients. Performed By: #### D OLMEDO #### [facility] ([id number]) [facility] [place] [address] METHADONE Negative Normal NEG [facility] Comment on above: Result Comment: Meth adone screening cut off value = 300 ng/mL. Performed By: #### D OLMEDO #### [facility] ([id number]) [facility] [place] [address] OPIATES Negative Normal NEG [facility] Comment on above: Result Comment: Opia rolando screening cut off value = 300 ng/mL NOTE: This test is used for the detection of codeine, hydrocodone (>1000 ng/mL), morphine and hydromorphone (>900 ng/mL) in urine. Performed By: #### D OLMEDO #### [facility] ([id number]) [facility] [place] [address] OXYCODONE Negative Normal NEG [facility] Comment on above: Result Comment: Oxyc odone screening cut off value = 300 ng/mL NOTE: This test is used for the detection of oxycodone and oxymorphone in urine. Performed By: #### D OLMEDO #### [facility] ([id number]) [address] [place] [address] PHENCYCLIDINE Negative Normal NEG [facility] Comment on above: Result Comment: Phen cyclidine screening cut off value = 25 ng/mL Performed By: #### D OLMEDO #### [facility] ([id number]) [address] [place] [address] Ethanol [Mass/Vol]on 024 ETHANOL 0.09 g/dL High 0.00-0.08 [facility] Comment on above: Result Comment: This report is intended for use in clinical monitoring or management of patients. Performed By: #### C SUSAN, BMP, 3298-7, 4024-6, 5643-2 #### [facility] ([id number]) [address] [place] [address] #### 33131-0 #### [facility] ([id number]) [address] [place] [address], [address] [place] [address] HGB A1C (GLYCO-HGB)on 2023 Glucose [Mass/Vol] 103 mg/dL Normal [facility] Comment on above: Performed By: #### C ANA DAVIS, 3298-7, 4024-6, 5643-2 #### [facility] ([id number]) [address] [place] [address] #### 68196-6 #### [facility] ([id number]) [address] [place] [address], [facility] [address] [place] [address] HbA1c (Bld) [Mass fraction] 5.2 % Normal 4.4-5.6 [facility] Comment on above: Result Comment: NOTE ADA Guidelines Result HgbA1c Normal : less than 5.7 % Prediabetes : 5.7 % to 6.4 % Diabetes : > 6.4 % Use with caution in patients with abnormal hemoglobin variants as the half-life of red blood cells and in vivo glycation rates are affected. Performed By: #### C ANA DAVIS, 8-7, 4-6, 5643-2 #### [facility] ([id number]) [address] [place] [address] #### 57007-7 #### [facility] ([id number]) [address] [place] [address], [address] [place] [address] Salicylates [Mass/Vol]on SALICYLATE <2.5 Normal 2.0-25.0 [facility] Comment on above: Result Comment: Refe rence ranges are for therapeutic limits. Performed By: #### C ANA DAVIS, 3298-7, 4024-6, 5643-2 #### [facility] ([id number]) [address] [place] [address] #### 42173-2 #### [facility] ([id number]) [address] [facility], [address] [place] [address] Tricyclic antidepressants [M ass/Vol]on 01-07-2024 TRICYCLICS Negative Normal NEG [facility] Comment on above: Performed By: #### C BCA, BMP, 3298-7, 4024-6, 5643-2 #### [facility] ([id number]) [facility] [place] [address] #### 66645-7 #### [facility] ([id number]) [address] [facility], [address] [place] [address] ACETAMINOPHENon 01-05-2024 Acetaminophen [Mass/Vol] ug/mL Normal 0.0-20.0 [facility] Comment on above: Performed By: #### A SAT, ANION, OSMOL, CBCWD, ETOHS, EGFR1, CMP, ACTM #### [employer] [address] [place] [address] ANION GAPon 01-05-2024 Anion gap [Moles/Vol] 14.0 mmol/L Normal 8.0-16.0 [facility] Comment on above: Result Comment: ANIO N GAP = Sodium -(Chloride + CO2) Performed By: #### A SAT, ANION, OSMOL, CBCWD, ETOHS, EGFR1, CMP, ACTM ####[employer] [place] [address] CALCULATED OSMOLALITYon 12-24 Osmolality [Osmolality] 277.4 mosm/kg Normal 275.0-300.0 [facility] Comment on above: Performed By: #### A SAT, ANION, OSMOL, CBCWD, ETOHS, EGFR1, CMP, ACTM ####[employer] [id number] [place] [address] CBC WITH DIFFERENTIALon 12-24 ABS BASOPHILS 0.1 thou/mm3 Normal 0.0-0.1 [facility] Comment on above: Performed By: #### A SAT, ANION, OSMOL, CBCWD, ETOHS, EGFR1, CMP, ACTM #### [employer] [address] [place] [address] ABS EOSINOPHILS 0.2 thou/mm3 Normal 0.0-0.4 [facility] Comment on above: Performed By: #### A SAT, ANION, OSMOL, CBCWD, ETOHS, EGFR1, CMP, ACTM #### [place] [address] ABS IMMATURE GRANS (IG) 0.02 thou/mm3 Normal 0.00-0.07 [facility] Comment on above: Performed By: #### A SAT, ANION, OSMOL, CBCWD, ETOHS, EGFR1, CMP, ACTM #### [place] [address] ABS LYMPHOCYTES 2.7 thou/mm3 Normal 1.0-4.8 [facility] Comment on above: Performed By: #### A SAT, ANION, OSMOL, CBCWD, ETOHS, EGFR1, CMP, ACTM #### [place] [address] ABS MONOCYTES 0.8 thou/mm3 Normal 0.4-1.3 [facility] Comment on above: Performed By: #### A SAT, ANION, OSMOL, CBCWD, ETOHS, EGFR1, CMP, ACTM #### [place] [address] ABS NEUTROPHILS 5.2 thou/mm3 Normal 1.8-7.7 [facility] Comment on above: Performed By: #### A SAT, ANION, OSMOL, CBCWD, ETOHS, EGFR1, CMP, ACTM #### [place] [address] Basophils/100 WBC (Bld) 1.2 % Normal [facility] Comment on above: Performed By: #### A SAT, ANION, OSMOL, CBCWD, ETOHS, EGFR1, CMP, ACTM #### [place] [address] Eosinophils/100 WBC (Bld) 2.2 % Normal [facility] Comment on above: Performed By: #### A SAT, ANION, OSMOL, CBCWD, ETOHS, EGFR1, CMP, ACTM #### [place] [address] Erythrocyte distribution width (RBC) [Ratio] 12.7 % Normal 11.5-14.5 [facility] Comment on above: Performed By: #### A SAT, ANION, OSMOL, CBCWD, ETOHS, EGFR1, CMP, ACTM #### [place] [address] Hematocrit (Bld) [Volume fraction] 47.5 % Normal 42.0-52.0 [facility] Comment on above: Performed By: #### A SAT, ANION, OSMOL, CBCWD, ETOHS, EGFR1, CMP, ACTM #### [place] [address] Hemoglobin (Bld) [Mass/Vol] 16.0 g/dL Normal 14.0-18.0 [facility] Comment on above: Performed By: #### A SAT, ANION, OSMOL, CBCWD, ETOHS, EGFR1, CMP, ACTM #### [place] [address] IMMATURE GRANS (IG) 0.2 % Normal [facility] Comment on above: Performed By: #### A SAT, ANION, OSMOL, CBCWD, ETOHS, EGFR1, CMP, ACTM #### [place] [address] Lymphocytes/100 WBC (Bld) 30.2 % Normal [facility] Comment on above: Performed By: #### A SAT, ANION, OSMOL, CBCWD, ETOHS, EGFR1, CMP, ACTM #### [place] [address] MCH (RBC) [Entitic mass] 30.8 pg Normal 26.0-33.0 [facility] Comment on above: Performed By: #### A SAT, ANION, OSMOL, CBCWD, ETOHS, EGFR1, CMP, ACTM #### [place] [address] MCHC (RBC) [Mass/Vol] 33.7 g/dL Normal 32.2-35.5 [facility] Comment on above: Performed By: #### A SAT, ANION, OSMOL, CBCWD, ETOHS, EGFR1, CMP, ACTM #### [address] [address] MCV (RBC) [Entitic vol] 91.5 fL Normal 80.0-94.0 [facility] Comment on above: Performed By: #### A SAT, ANION, OSMOL, CBCWD, ETOHS, EGFR1, CMP, ACTM #### [place] [address] Monocytes/100 WBC (Bld) 8.9 % Normal [facility] Comment on above: Performed By: #### A SAT, ANION, OSMOL, CBCWD, ETOHS, EGFR1, CMP, ACTM #### [place] [address] Neutrophils/100 WBC (Bld) 57.3 % Normal [facility] Comment on above: Performed By: #### A SAT, ANION, OSMOL, CBCWD, ETOHS, EGFR1, CMP, ACTM #### [place] [address] NRBC 0 /100 wbc Normal [facility] Comment on above: Performed By: #### A SAT, ANION, OSMOL, CBCWD, ETOHS, EGFR1, CMP, ACTM #### [address] [address] PLATELET 267 thou/mm3 Normal 130-400 [facility] Comment on above: Performed By: #### A SAT, ANION, OSMOL, CBCWD, ETOHS, EGFR1, CMP, ACTM #### [address] [address] Platelet mean volume (Bld) [Entitic vol] 9.6 fL Normal 9.4-12.4 [facility] Comment on above: Performed By: #### A SAT, ANION, OSMOL, CBCWD, ETOHS, EGFR1, CMP, ACTM #### [place] [address] RBC 5.19 mill/mm3 Normal 4.70-6.10 [facility] Comment on above: Performed By: #### A SAT, ANION, OSMOL, CBCWD, ETOHS, EGFR1, CMP, ACTM #### [address] [address] RDW-SD 42.8 fL Normal 35.0-45.0 [facility] Comment on above: Performed By: #### A SAT, ANION, OSMOL, CBCWD, ETOHS, EGFR1, CMP, ACTM #### [address] [address] WBC 9.0 thou/mm3 Normal 4.8-10.8 [facility] Comment on above: Performed By: #### A SAT, ANION, OSMOL, CBCWD, ETOHS, EGFR1, CMP, ACTM #### [address] [address] COMP. METABOLIC PANELon 12-24 Albumin [Mass/Vol] 4.4 g/dL Normal 3.5-5.1 [facility] Comment on above: Performed By: #### A SAT, ANION, OSMOL, CBCWD, ETOHS, EGFR1, CMP, ACTM #### [address] [address] ALP [Catalytic activity/Vol] 74 U/L Normal 38-126 [facility] Comment on above: Performed By: #### A SAT, ANION, OSMOL, CBCWD, ETOHS, EGFR1, CMP, ACTM #### [address] [address] ALT [Catalytic activity/Vol] 33 U/L Normal 11-66 [facility] Comment on above: Performed By: #### A SAT, ANION, OSMOL, CBCWD, ETOHS, EGFR1, CMP, ACTM #### [address] [address] AST [Catalytic activity/Vol] 26 U/L Normal 5-40 [facility] Comment on above: Performed By: #### A SAT, ANION, OSMOL, CBCWD, ETOHS, EGFR1, CMP, ACTM #### [address] [address] Bilirubin [Mass/Vol] 0.5 mg/dL Normal 0.3-1.2 [facility] Comment on above: Performed By: #### A SAT, ANION, OSMOL, CBCWD, ETOHS, EGFR1, CMP, ACTM #### [address] [address] Calcium [Mass/Vol] 9.7 mg/dL Normal 8.5-10.5 [facility] Comment on above: Performed By: #### A SAT, ANION, OSMOL, CBCWD, ETOHS, EGFR1, CMP, ACTM #### [address] [address] Chloride [Moles/Vol] 101 mmol/L Normal 98-111 [facility] Comment on above: Performed By: #### A SAT, ANION, OSMOL, CBCWD, ETOHS, EGFR1, CMP, ACTM #### [address] [address] CO2 [Moles/Vol] 23 mmol/L Normal 23-33 [facility] Comment on above: Performed By: #### A SAT, ANION, OSMOL, CBCWD, ETOHS, EGFR1, CMP, ACTM #### [address] [address] Creatinine [Mass/Vol] 0.8 mg/dL Normal 0.4-1.2 [facility] Comment on above: Performed By: #### A SAT, ANION, OSMOL, CBCWD, ETOHS, EGFR1, CMP, ACTM #### [address] [address] Glucose [Mass/Vol] 89 mg/dL Normal 70-108 [facility] Comment on above: Performed By: #### A SAT, ANION, OSMOL, CBCWD, ETOHS, EGFR1, CMP, ACTM #### [address] [address] Potassium [Moles/Vol] 4.2 mmol/L Normal 3.5-5.2 [facility] Comment on above: Result Comment: Low level specimen hemolysis is present as indicated by the interference level index on the Aldair analyzer. The reported K+ level may be falsely increased. If clinically warranted, recollection of the specimen is suggested. Performed By: #### A SAT, ANION, OSMOL, CBCWD, ETOHS, EGFR1, CMP, ACTM #### [facility] [address] [place] [address] Protein [Mass/Vol] 7.9 g/dL Normal 6.1-8.0 [facility] Comment on above: Performed By: #### A SAT, ANION, OSMOL, CBCWD, ETOHS, EGFR1, CMP, ACTM #### [facility] [address] [place] [address] Sodium [Moles/Vol] 138 mmol/L Normal 135-145 [facility] Comment on above: Performed By: #### A SAT, ANION, OSMOL, CBCWD, ETOHS, EGFR1, CMP, ACTM #### [facility] [address] [place] [address] Urea nitrogen [Mass/Vol] 19 mg/dL Normal 7-22 [facility] Comment on above: Performed By: #### A SAT, ANION, OSMOL, CBCWD, ETOHS, EGFR1, CMP, ACTM #### [facility] [address] [place] [address] DRUG ABUSE SCREENon 01-05-20 24 AMPHETAMINE/METHAMPH Negative Normal NEGATIVE [facility] Comment on above: Performed By: #### T OXPN ####[facility] [address] [place] [address] BARBITURATE Negative Normal NEGATIVE [facility] Comment on above: Performed By: #### T OXPN ####[facility] [address] [place] [address] Benzodiazepines Ql (U) Positive Normal NEGATIVE [facility] Comment on above: Performed By: #### T OXPN ####[facility] [address] [place] [address] Cannabinoids Screen Ql (U) Positive Normal NEGATIVE [facility] Comment on above: Performed By: #### T OXPN ####[facility] [address] [place] [address] COCAINE METABOLITE Negative Normal NEGATIVE [facility] Comment on above: Performed By: #### T OXPN ####[facility] [address] [place] [address] FENTANYL Negative Normal NEGATIVE [facility] Comment on above: Result Comment: A N egative result for a drug abuse screen test indicates that the drug concentration is below the following cutoffs: Amphetamine/Methamphetamine 1000 ng/ml Barbiturate 200 ng/ml Benzodiazapine 200 ng/ml Cannabinoids 50 ng/ml Cocaine Metabolite 300 ng/ml Opiates 300 ng/ml Oxycodone 100 ng/ml Phencyclidine 25 ng/ml Fentanyl 5 ng/ml A Positive result for a drug abuse screen test should be considered presumptive positive until/unless confirmed by another method. (Additional request) Quantitative values from a reference laboratory are available upon additional request. These results are for medical use only. Performed By: #### T OXPN ####[address] [place] [address] Opiates Ql (U) Negative Normal NEGATIVE [facility] Comment on above: Performed By: #### T OXPN ####[address] [place] [address] OXYCODONE Negative Normal NEGATIVE [facility] Comment on above: Performed By: #### T OXPN ####[facility] [address] [place] [address] Phencyclidine Ql (U) Negative Normal NEGATIVE [facility] Comment on above: Performed By: #### T OXPN ####[facility] [address] [place] [address] ETHYL ALCOHOL BLOODon 2023 ETHYL ALCOHOL BLOOD < 0.01 Normal 0.00 [facility] Comment on above: Performed By: #### A SAT, ANION, OSMOL, CBCWD, ETOHS, EGFR1, CMP, ACTM #### [facility] [address] [place] [address] GFR, ESTIMATEDon 01-05-2024 GFR/1.73 sq M.predicted MDRD (S/P/Bld) [Vol rate/Area] mL/min/{1.73_m2} Normal >60 [facility] Comment on above: Result Comment: Yobani atric calculator link https://www.kidney.org/professionals/kdoqi/gfr_calculatorped Effective Jul 28, 2022 These results are not intended for use in patients <18 years of age. eGFR results are calculated without a race factor using the 2020 CKD-EPI equation. Careful clinical correlation is recommended, particularly when comparing to results calculated using previous equations. The CKD-EPI equation is less accurate in patients with extremes of muscle mass, extra-renal metabolism of creatinine, excessive creatine ingestion, or following therapy that affects renal tubular secretion. Performed By: #### A SAT, ANION, OSMOL, CBCWD, ETOHS, EGFR1, CMP, ACTM ####[facility] [address] [place] [address] Inpatient Clinical Summaryon 01-05-2024 Inpatient Clinical Summary Normal [facility] SALICYLATEon 01-05-2024 SALICYLATE < 0.3 Low 2.0-10.0 [facility] Comment on above: Performed By: #### A SAT, ANION, OSMOL, CBCWD, ETOHS, EGFR1, CMP, ACTM #### [facility] [address] [place] [address] Progress Noteon 01-04-2024 Progress Note Pt was not present f or the morning exercise group. Attended 3/3 therapeutic group sessions. Electronically signed by Jessica Fair 01/04/24 13:30 EDT Normal [facility] Progress Note-Nurseon 2023 Progress Note-Nurse Normal [facility] Progress Note-Nurse Normal [facility] Progress Note-Nurseon 2023 Progress Note-Nurse Normal [facility] Progress Note-Nurse Normal [facility] Progress Note-Nurseon 2023 Progress Note-Nurse Normal [facility] Progress Note-Nurse Normal [facility] .Fentanyl Scrn wo Conf,Uron 01-01-2024 Ur Fentanyl Scrn Negative Normal NEG <1.0 [facility] Comment on above: Performed By: #### C [id number] ####[address] [address] Ur Fentanyl Scrn Qnt 0.65 ng/mL Normal <=0.99 [facility] Comment on above: Performed By: #### C [id number] ####[address] [address] .UA Microscp Aon 01-01-2024 UA RBC Quant 0 /HPF Normal 0-5 [facility] Comment on above: Performed By: #### . Urinalysis Microscopic Auto ####[address] [address] UA WBC Quant 0 /HPF Normal 0-5 [facility] Comment on above: Performed By: #### . Urinalysis Microscopic Auto ####[address] [address] .eGFRon 01-01-2024 GFR/1.73 sq M.predicted MDRD (S/P/Bld) [Vol rate/Area] mL/min/{1.73_m2} Normal >=60 [facility] Comment on above: Result Comment: [facility] have implemented the eGFR calculation approach that does not have a coefficient for race and that conforms to the NKF-ASN Task Force Recommendations.Stages of Chronic Kidney Disease GFRStage 3a Mild to moderate loss of kidney function 59 to 45Stage 3b Moderate to severe loss of kidney function 44 to 33Stage 4 Severe loss of kidney function 29 to 15Stage 5 Kidney failure Less than 15GFR calculated using the CKD-Epi Creatinine Equation (2020):eGFR = 142 X min(SCr/?, 1)? X max(SCr /?, 1)-1.200 X 0.9938Age X 1.012 [if female]Abbreviations/Units:eGFR (estimated glomerular filtration rate) = mL/min/1.73 m2SCr (standardized serum creatinine) = mg/dL? = 0.7 (females) or 0.9 (males)? = -0.241 (females) or -0.302 (males)min = indicates the minimum of SCr/? or 1max = indicates the maximum of SCr/? or 1Age = years Performed By: #### E GFR ####[address] [address] CBC w/ Diffon 01-01-2024 Erythrocyte distribution width (RBC) [Ratio] 13.1 % Normal 11.6-14.8 [facility] Comment on above: Performed By: #### C BC ####[address] [address] Hematocrit (Bld) [Volume fraction] 44.5 % Normal 41.0-53.0 [facility] Comment on above: Performed By: #### C BC ####[address] [address] Hemoglobin (Bld) [Mass/Vol] 15.4 g/dL Normal 13.5-17.5 [facility] Comment on above: Performed By: #### C BC ####[address] [address] MCH (RBC) [Entitic mass] 30.9 pg Normal 27.0-35.0 [facility] Comment on above: Performed By: #### C BC ####[place] [id number] MCHC 34.6 % Normal 31.0-37.0 [facility] Comment on above: Performed By: #### C BC ####[address] [address] MCV (RBC) [Entitic vol] 89.1 fL Normal 80.0-100.0 [facility] Comment on above: Performed By: #### C BC ####[address] [address] Platelet 249 x10*3/mcL Normal 150-450 [facility] Comment on above: Performed By: #### C BC ####[address] [address] Platelet mean volume (Bld) [Entitic vol] 7.7 fL Normal 6.7-10.6 [facility] Comment on above: Performed By: #### C BC ####[address] [address] RBC 5.00 x10*6/mcL Normal 4.30-5.80 [facility] Comment on above: Performed By: #### C BC ####[address] [address] WBC 6.5 x10*3/mcL Normal 4.5-11.0 [facility] Comment on above: Performed By: #### C BC ####[address] [address] CMPon 01-01-2024 Albumin [Mass/Vol] 3.7 g/dL Normal 3.2-4.9 [facility] Comment on above: Performed By: #### C OMP ####[address] [address] Albumin/Globulin [Mass ratio] 1.1 {ratio} Normal 1.1-2.2 [facility] Comment on above: Performed By: #### C OMP ####[address] [address] Alk Phos 49 IU/L Normal 32-91 [facility] Comment on above: Performed By: #### C OMP ####[address] [address] ALT [Catalytic activity/Vol] 22 U/L Normal 17-63 [facility] Comment on above: Performed By: #### C OMP ####[address] [address] Anion gap [Moles/Vol] 12 mmol/L Normal 7-17 [facility] Comment on above: Performed By: #### C OMP ####[address] [address] AST [Catalytic activity/Vol] 26 U/L Normal 15-41 [facility] Comment on above: Performed By: #### C OMP ####[address] [address] Bili Total 1.1 mg/dL Normal 0.3-1.2 [facility] Comment on above: Performed By: #### C OMP ####[address] [address] Calcium [Mass/Vol] 9.1 mg/dL Normal 8.5-10.3 [facility] Comment on above: Performed By: #### C OMP ####[address] [address] Chloride [Moles/Vol] 101 mmol/L Normal 98-110 [facility] Comment on above: Performed By: #### C OMP ####[address] [address] CO2 [Moles/Vol] 25 mmol/L Normal 22-32 [facility] Comment on above: Performed By: #### C OMP ####[address] [address] Creatinine [Mass/Vol] 0.92 mg/dL Normal 0.61-1.24 [facility] Comment on above: Performed By: #### C OMP ####[address] [address] Glucose [Mass/Vol] 100 mg/dL High 70-99 [facility] Comment on above: Performed By: #### C OMP ####[address] [address] Potassium [Moles/Vol] 4.0 mmol/L Normal 3.4-4.8 [facility] Comment on above: Performed By: #### C OMP ####[address] [address] Protein [Mass/Vol] 7.1 g/dL Normal 6.5-8.1 [facility] Comment on above: Performed By: #### C OMP ####[address] [address] Sodium [Moles/Vol] 134 mmol/L Normal 133-142 [facility] Comment on above: Performed By: #### C OMP ####[address] [address] Urea nitrogen [Mass/Vol] 16 mg/dL Normal 8-26 [facility] Comment on above: Performed By: #### C OMP ####[place] [id number] Urea nitrogen/Creatinine [Mass ratio] 17.4 mg/mg Normal 10.0-20.0 [facility] Comment on above: Performed By: #### C OMP ####[place] [id number] COV19 Rapidon 01-01-2024 LAB ONLY Result Called? No Normal [facility] Comment on above: Performed By: #### C [id number] ####[place] [id number] Reason for Rapid Test COVID Exposure Normal [facility] Comment on above: Performed By: #### C [id number] ####[place] [id number] SARS-CoV-2 (COVID-19) RNA BRITTANY+probe Ql (Unsp spec) Negative Normal Negative [facility] Comment on above: Result Comment: The 2019 novel coronavirus SARS-CoV-2 target nucleic acids are not detected.This test is for the detection of SARS-CoV-2 RNA. Positive results are indicative of active infection with SARS-CoV-2. Positive results do not rule out bacterial infection or co-infection with other viruses. Negative results should be treated as presumptive and, if inconsistent with clinical signs and symptoms or necessary for patient management, should be tested with an alternative molecular assay.Negative results do not preclude SARS-CoV-2 infection and should not be used as the sole basis for treatment or other patient management decisions. Clinical correlation with patient history and other diagnostic information is necessary to determine patient infection status.ID NOW COVID-19 2.0 assay performed on the ID NOW Instrument is a rapid molecular in vitro diagnostic test utilizing an isothermal nucleic acid amplification technology (NAAT) intended for the qualitative detection of nucleic acid from SARS-CoV-2 in direct anterior nasal (nasal) or nasopharyngeal swab specimens from individuals with signs and symptoms of respiratory tract infection. Performed By: #### C [id number] ####[address] [address] Diff Autoon 01-01-2024 Baso Absolute 0.1 x10*3/mcL Normal 0.0-0.2 [facility] Comment on above: Performed By: #### . Automated Diff ####[address] [address] Basophils/100 WBC (Bld) 0.9 % Normal 0.0-1.2 [facility] Comment on above: Performed By: #### . Automated Diff ####[address] [address] Eos Absolute 0.2 x10*3/mcL Normal 0.0-0.4 [facility] Comment on above: Performed By: #### . Automated Diff ####[address] [address] Eosinophils/100 WBC (Bld) 3.0 % Normal 0.0-6.1 [facility] Comment on above: Performed By: #### . Automated Diff ####[address] [address] Lymph Absolute 2.4 x10*3/mcL Normal 1.0-4.8 [facility] Comment on above: Performed By: #### . Automated Diff ####[address] [address] Lymphocytes/100 WBC (Bld) 36.7 % Normal 27.2-40.8 [facility] Comment on above: Performed By: #### . Automated Diff ####[address] [address] [place] Absolute 0.6 x10*3/mcL Normal 0.3-1.1 [facility] Comment on above: Performed By: #### . Automated Diff ####[address] [address] Monocytes/100 WBC (Bld) 9.8 % Normal 4.7-13.9 [facility] Comment on above: Performed By: #### . Automated Diff ####[address] [address] Neutro Absolute 3.2 x10*3/mcL Normal 1.8-7.7 [facility] Comment on above: Performed By: #### . Automated Diff ####[place] [address] Neutro Auto 49.6 % Normal 47.2-70.8 [facility] Comment on above: Performed By: #### . Automated Diff ####[place] [address] ED Clinical Summaryon 2023 ED Clinical Summary Normal [facility] ED Note-Physicianon 01-01-20 ED Note-Physician Normal [facility] Ethanolon 01-01-2024 Ethanol, Plasma <10 Normal <=9 [facility] Comment on above: Result Comment: To c onvert mg/dL to g/dL, divide result by 1,000. Legal limit of intoxication is 80 mg/dL (0.08 g/dL). Performed By: #### A LC ####[place] [address] Magnesiumon 01-01-2024 Magnesium [Mass/Vol] 2.1 mg/dL Normal 1.7-2.4 [facility] Comment on above: Performed By: #### M G ####[place] [address] Progress Note-Nurseon 2023 Progress Note-Nurse Normal [facility] UA w Culture if Indon 2023 Color (U) Light-Yellow Normal Yellow [facility] Comment on above: Performed By: #### U CI ####[place] [address] Ketones Ql (U) Negative Normal Negative [facility] Comment on above: Performed By: #### U CI ####[place] [address] UA Blood Negative Normal Negative [facility] Comment on above: Performed By: #### U CI ####[address] [place] [address] UA Clarity Clear Normal Clear [facility] Comment on above: Performed By: #### U CI ####[address] [address] UA Glucose Normal Normal Negative [facility] Comment on above: Performed By: #### U CI ####[address] [address] UA Leukocyte Esterase Negative Normal Negative [facility] Comment on above: Performed By: #### U CI ####[address] [address] UA Nitrite Negative Normal Negative [facility] Comment on above: Performed By: #### U CI ####[address] [address] UA pH 6.0 Normal 4.5 - 7.8 [facility] Comment on above: Performed By: #### U CI ####[address] [address] UA Protein Negative Normal Negative [facility] Comment on above: Performed By: #### U CI ####[address] [address] UA Source Clean Catch Normal [facility] Comment on above: Performed By: #### U CI ####[address] [address] UA Spec Grav 1.015 Normal 1.003-1.035 [facility] Comment on above: Performed By: #### U CI ####[address] [address] UA Urobilinogen Normal Normal 0.2 - 1.0 [facility] Comment on above: Performed By: #### U CI ####[address] [address] Urobilinogen (U) [Mass/Vol] Negative Normal Negative [facility] Comment on above: Performed By: #### U CI ####[address] [address] UDS Compon 01-01-2024 Creatinine [Mass/Vol] 70.8 mg/dL Normal [facility] Comment on above: Performed By: #### C [id number] ####[address] [address] Ur Amph Scrn Negative Normal NEG = <1000 [facility] Comment on above: Performed By: #### C [id number] ####[address] [address] Ur Yenifer Scrn Negative Normal NEG = <200 [facility] Comment on above: Performed By: #### C [id number] ####[address] [address] Ur Benzodia Scrn Positive Abnormal NEG = <200 [facility] Comment on above: Result Comment: This unconfirmed positive screening result is to be used for medical treatment purposes only. Unconfirmed screening results must not be used for non-medical purposes (e.g. employment testing, legal testing). Performed By: #### C [id number] ####[address] [address] Ur Cannab Scrn Positive Abnormal NEG = <50 [facility] Comment on above: Result Comment: This unconfirmed positive screening result is to be used for medical treatment purposes only. Unconfirmed screening results must not be used for non-medical purposes (e.g. employment testing, legal testing). Performed By: #### C [id number] ####[address] [address] Ur Cocaine Scrn Negative Normal NEG = <300 [facility] Comment on above: Performed By: #### C [id number] ####[address] [address] Ur Methadone Scn Negative Normal NEG = <300 [facility] Comment on above: Performed By: #### C [id number] ####[address] [address] Ur Opiate Scrn Negative Normal NEG = <300 [facility] Comment on above: Performed By: #### C [id number] ####[address] [address] Ur Oxy Screen Negative Normal NEG = <100 [facility] Comment on above: Performed By: #### C [id number] ####[address] [address] Ur Oxy Scrn Qnt 0 ng/mL Normal <=99 [facility] Comment on above: Performed By: #### C [id number] ####[address] [address] Ur PCP Scrn Negative Normal NEG = <25 [facility] Comment on above: Performed By: #### C [id number] ####[address] [address] UA pH 6.0 Normal 4.5 - 7.8 [facility] Comment on above: Performed By: #### C [id number] ####[address] [address] UA Spec Grav 1.015 Normal 1.003-1.035 [facility] Comment on above: Performed By: #### C [id number] ####[address] [address] XR Chest 1 Viewon 01-01-2024 XR Chest 1 View Normal [facility] CBC with Diffon 12-26-2023 Abs. Basophil 0.03 k/uL Normal 0.00-0.20 [facility] Comment on above: Performed By: #### E DTOX, MG, CP, CDP #### [employer] [address] [place] [address] Vegetable Grader: Kael Tran MD Abs.Imm.Granulocyte 0.04 k/uL Normal 0.00-0.30 [facility] Comment on above: Performed By: #### E DTOX, MG, CP, CDP #### [employer] [address] [place] [address] Vegetable Grader: Kael Tran MD Abs.Neutrophil (Seg) 3.26 k/uL Normal 1.50-8.10 [facility] Comment on above: Performed By: #### E DTOX, MG, CP, CDP #### [address] [address] Vegetable Grader: Kael Tran MD Basophils/100 WBC (Bld) 1 % Normal 0-2 [facility] Comment on above: Performed By: #### E DTOX, MG, CP, CDP #### [place] [address] Vegetable Grader: Kael Tran MD Eosinophils (Bld) [#/Vol] 0.10 10*3/uL Normal 0.00-0.44 [facility] Comment on above: Performed By: #### E DTOX, MG, CP, CDP #### [place] [address] Vegetable Grader: Kael Tran MD Eosinophils/100 WBC (Bld) 2 % Normal 1-4 [facility] Comment on above: Performed By: #### E DTOX, MG, CP, CDP #### [place] [address] Vegetable Grader: Kael Tran MD Erythrocyte distribution width (RBC) [Ratio] 12.6 % Normal 11.8-14.4 [facility] Comment on above: Performed By: #### E DTOX, MG, CP, CDP #### [place] [address] Vegetable Grader: Kael Tran MD Hematocrit (Bld) [Volume fraction] 46.4 % Normal 40.7-50.3 [facility] [facility] Comment on above: Performed By: #### E DTOX, MG, CP, CDP #### [address] [place] [address] Vegetable Grader: Kael Tran MD Hemoglobin (Bld) [Mass/Vol] 15.7 g/dL Normal 13.0-17.0 [facility] Comment on above: Performed By: #### E DTOX, MG, CP, CDP #### [address] [address] Vegetable Grader: Kael Tran MD Immature granulocytes/100 WBC (Bld) 1 % High 0 [facility] Comment on above: Performed By: #### E DTOX, MG, CP, CDP #### [address] [address] Vegetable Grader: Kael Tran MD Lymphocytes (Bld) [#/Vol] 2.26 10*3/uL Normal 1.10-3.70 [facility] Comment on above: Performed By: #### E DTOX, MG, CP, CDP #### [address] [address] Vegetable Grader: Kael Tran MD Lymphocytes/100 WBC (Bld) 37 % Normal 24-43 [facility] Comment on above: Performed By: #### E DTOX, MG, CP, CDP #### [address] [address] Vegetable Grader: Kael Tran MD MCH (RBC) [Entitic mass] 30.1 pg Normal 25.2-33.5 [facility] Comment on above: Performed By: #### E DTOX, MG, CP, CDP #### [address] [address] Vegetable Grader: Kael Tran MD MCHC (RBC) [Mass/Vol] 33.8 g/dL Normal 28.4-34.8 [facility] Comment on above: Performed By: #### E DTOX, MG, CP, CDP #### [address] [address] Vegetable Grader: Kael Tran MD MCV (RBC) [Entitic vol] 88.9 fL Normal 82.6-102.9 [facility] Comment on above: Performed By: #### E DTOX, MG, CP, CDP #### [address] [address] Vegetable Grader: Kael Tran MD Monocytes (Bld) [#/Vol] 0.44 10*3/uL Normal 0.10-1.20 [facility] Comment on above: Performed By: #### E DTOX, MG, CP, CDP #### [address] [address] Vegetable Grader: Kael Tran MD Monocytes/100 WBC (Bld) 7 % Normal 3-12 [facility] Comment on above: Performed By: #### E DTOX, MG, CP, CDP #### [address] [address] Vegetable Grader: Kael Tran MD Neutrophil (Seg) 52 % Normal 36-65 [facility] Comment on above: Performed By: #### E DTOX, MG, CP, CDP #### [address] [address] Vegetable Grader: Kael Tran MD NRBC Automated 0.0 per 100 WBC Normal 0.0 [facility] Comment on above: Performed By: #### E DTOX, MG, CP, CDP #### [address] [address] Vegetable Grader: Kael Tran MD Platelet mean volume (Bld) [Entitic vol] 10.3 fL Normal 8.1-13.5 [facility] Comment on above: Performed By: #### E DTOX, MG, CP, CDP #### [address] [address] Vegetable Grader: Kael Tran MD Platelets (Bld) [#/Vol] 170 10*3/uL Normal 138-453 [facility] Comment on above: Performed By: #### E DTOX, MG, CP, CDP #### [facility] [employer] [address] [place] [address] Vegetable Grader: Kael Tran MD RBC (Bld) [#/Vol] 5.22 10*6/uL Normal 4.21-5.77 [facility] Comment on above: Performed By: #### E DTOX, MG, CP, CDP #### [address] [address] Vegetable Grader: Kael Tran MD WBC (Bld) [#/Vol] 6.1 10*3/uL Normal 3.5-11.3 [facility] Comment on above: Performed By: #### E DTOX, MG, CP, CDP #### [facility] [employer] [address] [place] [address] Vegetable Grader: Kael Tran MD Comp Metabolic Pr/rfx MGon 0 - Albumin [Mass/Vol] 4.0 g/dL Normal 3.5-5.2 [facility] Comment on above: Performed By: #### E DTOX, MG, CP, CDP #### [facility] [employer] [address] [place] [address] Vegetable Grader: Kael Tran MD Albumin/Glob Ratio 1.4 Normal 1.0-2.5 [facility] Comment on above: Performed By: #### E DTOX, MG, CP, CDP #### [facility] [employer] [address] [place] [address] Vegetable Grader: Kael Tran MD Alkaline Phos 68 U/L Normal 40-129 [facility] Comment on above: Performed By: #### E DTOX, MG, CP, CDP #### [address] [address] Vegetable Grader: Kael Tran MD ALT [Catalytic activity/Vol] 17 U/L Normal 5-41 [facility] Comment on above: Performed By: #### E DTOX, MG, CP, CDP #### [address] [address] Vegetable Grader: Kael Tran MD Anion gap [Moles/Vol] 13 mmol/L Normal 9-17 [facility] Comment on above: Performed By: #### E DTOX, MG, CP, CDP #### [address] [address] Vegetable Grader: Kael Tran MD AST [Catalytic activity/Vol] 18 U/L Normal <40 [facility] Comment on above: Performed By: #### E DTOX, MG, CP, CDP #### [address] [address] Vegetable Grader: Kael Tran MD Bilirubin [Mass/Vol] 0.6 mg/dL Normal 0.3-1.2 [facility] Comment on above: Performed By: #### E DTOX, MG, CP, CDP #### [address] [address] Vegetable Grader: Kael Tran MD Calcium [Mass/Vol] 8.7 mg/dL Normal 8.6-10.4 [facility] Comment on above: Performed By: #### E DTOX, MG, CP, CDP #### [facility] [employer] [address] [place] [address] Vegetable Grader: Kael Tran MD Chloride [Moles/Vol] 104 mmol/L Normal 98-107 [facility] Comment on above: Performed By: #### E DTOX, MG, CP, CDP #### [facility] [employer] [address] [place] [phone] Vegetable Grader: Kael Tran MD CO2 [Moles/Vol] 19 mmol/L Low 20-31 [facility] Comment on above: Performed By: #### E DTOX, MG, CP, CDP #### [address] [address] Vegetable Grader: Kael Tran MD Creatinine [Mass/Vol] 0.7 mg/dL Normal 0.7-1.2 [facility] Comment on above: Performed By: #### E DTOX, MG, CP, CDP #### [address] [address] Vegetable Grader: Kael Tran MD GFR/1.73 sq M.predicted among non-blacks MDRD (S/P/Bld) [Vol rate/Area] mL/min/{1.73_m2} Normal >60 [facility] Comment on above: Result Comment: These results are not intended for use in patients <18 years of age. eGFR results are calculated without a race factor using the 2020 CKD-EPI equation. Careful clinical correlation is recommended, particularly when comparing to results calculated using previous equations. The CKD-EPI equation is less accurate in patients with extremes of muscle mass, extra-renal metabolism of creatine, excessive creatine ingestion, or following therapy that affects renal tubular secretion. Performed By: #### E DTOX, MG, CP, CDP #### [address] [address] Vegetable Grader: Kael Tran MD Glucose [Mass/Vol] 116 mg/dL High 70-99 [facility] Comment on above: Performed By: #### E DTOX, MG, CP, CDP #### [address] [address] Vegetable Grader: Kael Tran MD Potassium [Moles/Vol] 4.0 mmol/L Normal 3.7-5.3 [facility] Comment on above: Performed By: #### E DTOX, MG, CP, CDP #### [facility] [address] [place] [address] Vegetable Grader: Kael Tran MD Protein [Mass/Vol] 6.9 g/dL Normal 6.4-8.3 [facility] Comment on above: Performed By: #### E DTOX, MG, CP, CDP #### [facility] [address] [place] [address] Vegetable Grader: Kael Tran MD Sodium [Moles/Vol] 136 mmol/L Normal 135-144 [facility] Comment on above: Performed By: #### E DTOX, MG, CP, CDP #### [facility] [address] [place] [address] Vegetable Grader: Kael Tran MD Urea nitrogen [Mass/Vol] 18 mg/dL Normal 6-20 [facility] Comment on above: Performed By: #### E DTOX, MG, CP, CDP #### [facility] [address] [place] [address] Vegetable Grader: Kael Tran MD Drug Scr, Abuse, Uron 2023 Amphetamine(s),Ur Negative Normal NEG [facility] Comment on above: Result Comment: (Positive cutoff 1000 ng/mL) Performed By: #### E DTOX, MG, CP, CDP #### [facility] [address] [place] [address] Vegetable Grader: Kael Tran MD Barbiturate(s),Ur Negative Normal NEG [facility] Comment on above: Result Comment: (Positive cutoff 200 ng/mL) Performed By: #### E DTOX, MG, CP, CDP #### [facility] [address] [place] [address] Vegetable Grader: Kael Tran MD Benzodiazepine(s) Negative Normal NEG [facility] Comment on above: Result Comment: (Positive cutoff 200 ng/mL) Performed By: #### E DTOX, MG, CP, CDP #### [facility] [address] [place] [address] Vegetable Grader: Kael Tran MD Cannabinoid(s),Ur Positive Abnormal NEG [facility] Comment on above: Result Comment: (Positive cutoff 50 ng/mL) Performed By: #### E DTOX, MG, CP, CDP #### [facility] [employer] [address] [place] [address] Vegetable Grader: Kael Tran MD Cocaine Metabolite Negative Normal NEG [facility] Comment on above: Result Comment: (Positive cutoff 300 ng/mL) Performed By: #### E DTOX, MG, CP, CDP #### [employer] [address] [place] [address] Vegetable Grader: Kael Tran MD Fentanyl, Urine Negative Normal NEG [facility] Comment on above: Result Comment: (Positive cutoff 5 ng/ml) Performed By: #### E DTOX, MG, CP, CDP #### [employer] [address] [place] [address] Vegetable Grader: Kael Tran MD Interpretive Info Assay provides medic al screening only. The absence of expected drug(s) and/or Normal [facility] Comment on above: Result Comment: meta bolite(s) may indicate diluted or adulterated urine, limitations of testing or timing of collection. Testing for legal purposes should be confirmed by another method. To request confirmation of test result, please call the lab within 7 days of sample submission. Performed By: #### E DTOX, MG, CP, CDP #### [employer] [address] [place] [address] Vegetable Grader: Kael Tran MD Methadone Ql (U) Negative Normal NEG [facility] Comment on above: Result Comment: (Positive cutoff 300 ng/mL) Performed By: #### E DTOX, MG, CP, CDP #### [employer] [address] [place] [phone] Vegetable Grader: Kael Tran MD Opiate(s), Ur Negative Normal NEG [facility] Comment on above: Result Comment: (Positive cutoff 300 ng/mL) Performed By: #### E DTOX, MG, CP, CDP #### [address] [address] Vegetable Grader: Kael Tran MD Oxycodone, Urine Negative Normal NEG [facility] Comment on above: Result Comment: (Positive cutoff 100 ng/mL) Performed By: #### E DTOX, MG, CP, CDP #### [address] [address] Vegetable Grader: Kael Tran MD Phencyclidine, Ur Negative Normal NEG [facility] Comment on above: Result Comment: (Positive cutoff 25 ng/mL) Performed By: #### E DTOX, MG, CP, CDP #### [facility] [employer] [address] [place] [address] Vegetable Grader: Kael Tran MD Ethanol Alcoholon 12-26-2023 Ethanol [Mass/Vol] 12 mg/dL High <10 [facility] Comment on above: Performed By: #### E DTOX, MG, CP, CDP #### [facility] [employer] [address] [place] [address] Vegetable Grader: Kael Tran MD Ethanol percent 0.012 % High <0.010 [facility] Comment on above: Performed By: #### E DTOX, MG, CP, CDP #### [facility] [employer] [address] [place] [address] Vegetable Grader: Kael Tran MD 30on 12-11-2023 30 Problem: Substance A buse (Historic and Current) Goal: LTG-Ability to name resources Outcome: Adequate for Discharge Goal: LTG-Ability to notice triggers Outcome: Adequate for Discharge Goal: LTG-Understand the need for abstinence Outcome: Adequate for Discharge Goal: STG-Indicate withdrawl symptoms Outcome: Adequate for Discharge Goal: STG-Willing to engage in conversations about continued abstinence Outcome: Adequate for Discharge Goal: STG-Reports why they were able to stop initially Outcome: Adequate for Discharge Normal [facility] 94on 12-11-2023 94 Group Topic: Activit y Therapy Group Date: 12/11/2023 Start Time: 1030 End Time: 1130 Facilitators: Maribell Hood HOLISTIC SPECIALIST Department: [facility] Recovery Number of Participants: 0 Group Focus: anxiety, check in, coping skills, depression, feeling awareness/expression, goals/reality orientation, leisure skills, and problem solving Treatment Modality: Interpersonal Therapy and Leisure Development Interventions utilized were active listening, leisure development, and support Purpose: enhance coping skills, explore maladaptive thinking, improve communication skills, increase insight or knowledge, and reinforce self-care Name: Daron Villarreal Date of : 1985 MR: [id number] Level of Participation: refused Progress: None Response: Pt. Actively refused integration into group with HOLISTIC SPECIALIST and peers at this time. Plan: Pt. Will be encouraged to attend therapeutic recreation interventions with the HOLISTIC SPECIALIST in the future. Patients Problems: Patient Active Problem List Diagnosis Alcohol abuse with withdrawal (CMS/HCC) GERD (gastroesophageal reflux disease) Alcohol dependence with withdrawal, uncomplicated ([facility]) Alcohol abuse ETOH abuse Normal [facility] DSon 12-11-2023 DS Discharge Date: 12/11 Time Spent with Patient: 31 minutes spent with patient, discussing discharge instructions, ordering medications, reviewing lab work, communicating with other healthcare professionals, documenting clinical information and the patient's follow-up plan. Chief Complaint: Alcohol abuse and withdrawal Consults: GIM History of Present Illness: Daron Villarreal is a 38 y/o male with pmhx of anxiety, depression and alcohol abuse presenting to detox for alcohol withdrawal sx. Patient was most recently seen at [facility] detox on 11/27/23. Patient was discharged to [place], and left after one week stating it was too big and it increased his anxiety. He relapsed shortly after and reports that he has been very depressed. Today, patient is resting comfortably in bed. He expressed withdrawal symptoms of anxiousness, restlessness and body aches. CIWA score 1. 1. Alcohol: [9-12 beers] Quantity/method of use/frequency: [ daily] Last used: [ 12/06/23 ] Total Length of use: [ ~ 10 years] Patient reported significant tolerance withdrawal symptoms over the years and multiple unsuccessful attempts to cut down or stop using alcohol and significant amount of time spent in getting alcohol, using alcohol, and recovering from its effect. Hospital Course: Patient responded adequately to the CIWA protocol as well as symptomatic treatment. No seizures or any signs and symptoms suggestive of delirium tremens seen during hospital stay. During the stay in the hospital, the patient participated in groups and several meetings with social workers to plan aftercare. There were no other acute psychiatric or medical emergencies seen during hospital stay. Lab Results: Results for orders placed or performed during the hospital encounter of 12/07/23 Gamma GT Result Value Ref Range GGT 21 9 - 64 U/L Magnesium Result Value Ref Range Magnesium 1.9 1.9 - 2.7 mg/dL Phosphorus Result Value Ref Range Phosphorus 2.4 (L) 2.5 - 5.0 mg/dL Uric acid Result Value Ref Range Uric Acid 4.9 4.4 - 7.6 mg/dL Hepatic function panel Result Value Ref Range Total Bilirubin 1.3 (H) 0.3 - 1.0 mg/dL Bilirubin, Direct 0.2 0 - 0.2 mg/dL Alkaline Phosphatase 52 34 - 104 U/L AST 19 13 - 39 U/L ALT (SGPT) 17 7 - 52 U/L Total Protein 6.9 6.0 - 8.3 g/dL Albumin 4.3 3.5 - 5.7 g/dL Magnesium Result Value Ref Range Magnesium 2.0 1.9 - 2.7 mg/dL Mental Status Exam: The patient seemed reasonably calm and cooperative. Oriented to time, person, and place. Speech coherent, appropriate rate and volume. Gait stable. Mood is euthymic with appropriate affect. Thought processes goal-directed and thought content normal. Denies any current suicidal or homicidal ideation, intent, and plan. Insight and judgment seem fair to need for treatment though poor by history. Memory focus seem adequate. Disposition: Go to [facility] Complete walk-in assessment at [facility] on 12/14/23 at 9:00am for outpatient substance use treatment. [address] [place], [place] [phone] Discharge Medications Your medication list CONTINUE taking these medications Instructions Last Dose Given Next Dose Due FLUoxetine 20 mg capsule Commonly known as: PROzac Take 3 capsules (60 mg) by mouth in the morning. folic acid 1 mg tablet Commonly known as: Folvite Take 1 tablet (1 mg) by mouth in the morning for 7 doses. gabapentin 300 mg capsule Commonly known as: Neurontin Take 1 capsule (300 mg) by mouth if needed in the morning, at noon, and at bedtime (for muscle, body aches) for up to 7 days. hydrOXYzine pamoate 25 mg capsule Commonly known as: Vistaril Take 1 capsule (25 mg) by mouth if needed in the morning, at noon, and at bedtime for anxiety for up to 7 days. levothyroxine 50 mcg tablet Commonly known as: Synthroid, Levoxyl Take 1 tablet (50 mcg) by mouth before breakfast. QUEtiapine 100 mg tablet Commonly known as: SEROquel Take 1 tablet (100 mg) by mouth at bedtime. thiamine 100 mg tablet Commonly known as: Vitamin B-1 Take 1 tablet (100 mg) by mouth in the morning for 7 doses. Where to Get Your Medications These medications were sent to [facility] - [address] [place] [address] [address] [facility] [place] [address], [facility] [address] folic acid 1 mg tablet gabapentin 300 mg capsule hydrOXYzine pamoate 25 mg capsule thiamine 100 mg tablet The patient made aware of high risk of relapse after discharge from detox, especially if outpatient treatment is lacking. Pt given assistance by social work to make follow-up appointment. Discharge Diagnosis: Alcohol use disorder, severe, dependence Homelessness Attending physician personally saw and examined the patient on the day of discharge. [facility] NURSNOTEon 12-11-2023 NURSNOTE Patient discharged h ome per cab. Patient verbalized understanding of discharge instructions. Patient medications given per imeds. [facility] NURSNOTE Patient pleasant and cooperative. Patient states slept well throughout the night. Patient is hopeful about discharge. Will continue to monitor patient safety and for withdrawal symptoms. [facility] NURSNOTE Patient sleeping. Vi sible rise and fall of chest. Patient slept well last night. [facility] 30on 12-10-2023 30 Problem: Substance A buse (Historic and Current) Goal: LTG-Ability to name resources Outcome: Progressing Goal: LTG-Ability to notice triggers Outcome: Progressing Goal: LTG-Understand the need for abstinence Outcome: Progressing Goal: STG-Indicate withdrawl symptoms Outcome: Progressing Goal: STG-Willing to engage in conversations about continued abstinence Outcome: Progressing Goal: STG-Reports why they were able to stop initially Outcome: Progressing The patient is Moderately Stable - Low risk of patient condition declining or worsening The patient's goals for the shift include comfort, safety The clinical goals for the shift include comfort, safety Over the shift, the patient did not make progress toward the following goals. Barriers to progression include motivation. Recommendations to address these barriers include education Problem: Substance Abuse (Historic and Current) Goal: LTG-Ability to name resources Outcome: Progressing Goal: LTG-Ability to notice triggers Outcome: Progressing Goal: LTG-Understand the need for abstinence Outcome: Progressing Goal: STG-Indicate withdrawl symptoms Outcome: Progressing Goal: STG-Willing to engage in conversations about continued abstinence Outcome: Progressing Goal: STG-Reports why they were able to stop initially Outcome: Progressing . [facility] 30 The patient is Moder ately Stable - Low risk of patient condition declining or worsening The patient's goals for the shift include sleep, rest The clinical goals for the shift include comfort Problem: Substance Abuse (Historic and Current) Goal: LTG-Ability to name resources Outcome: Progressing Goal: LTG-Ability to notice triggers Outcome: Progressing Goal: LTG-Understand the need for abstinence Outcome: Progressing Goal: STG-Indicate withdrawl symptoms Outcome: Progressing Goal: STG-Willing to engage in conversations about continued abstinence Outcome: Progressing Goal: STG-Reports why they were able to stop initially Outcome: Progressing [facility] 94on 12-10-2023 94 Group Topic: Activit y Therapy Group Date: 12/10/2023 Start Time: 1530 End Time: 161 Facilitators: CHRIS Crow Department: [facility] Recovery Number of Participants: 0 Group Focus: coping skills, feeling awareness/expression, goals/reality orientation, leisure skills, problem solving, self-awareness, self-esteem, and social skills Treatment Modality: Interpersonal Therapy and Leisure Development Interventions utilized were active listening, assignment, leisure development, patient education, and support Purpose: enhance coping skills, express feelings, improve communication skills, increase insight or knowledge, regain self-worth, and reinforce self-care Name: Daron Villarreal Date of : 1985 MR: [id number] Level of Participation: withdrawn Progress: None Response: Pt. Was withdrawn from group and remained isolated in their room. Plan: Pt. Will be encouraged to attend therapeutic recreation interventions with the HOLISTIC SPECIALIST in the future. Patients Problems: Patient Active Problem List Diagnosis Alcohol abuse with withdrawal (CMS/HCC) GERD (gastroesophageal reflux disease) Alcohol dependence with withdrawal, uncomplicated (CMS/HCC) Alcohol abuse ETOH abuse Normal [facility] 94 Group Topic: Relaxat ion Group Date: 12/10/2023 Start Time: 1330 End Time: 1430 Facilitators: Maribell Hood HOLISTIC SPECIALIST Department: [facility] Recovery Number of Participants: 0 Group Focus: activities of daily living skills, affirmation, anxiety, clarity of thought, coping skills, feeling awareness/expression, leisure skills, relaxation, and self-awareness Treatment Modality: Interpersonal Therapy and Leisure Development Interventions utilized were leisure development, patient education, and support Purpose: enhance coping skills, express feelings, increase insight or knowledge, regain self-worth, and reinforce self-care Name: Daron Villarreal Date of : 1985 MR: [id number] Level of Participation: refused Progress: None Response: Pt. Actively refused integration into group with HOLISTIC SPECIALIST and peers at this time. Plan: Pt. Will be encouraged to attend therapeutic recreation interventions with the HOLISTIC SPECIALIST in the future. Patients Problems: Patient Active Problem List Diagnosis Alcohol abuse with withdrawal (CMS/HCC) GERD (gastroesophageal reflux disease) Alcohol dependence with withdrawal, uncomplicated (CMS/HCC) Alcohol abuse ETOH abuse Normal [facility] 94 Group Topic: Activit y Therapy Group Date: 12/10/2023 Start Time: 1030 End Time: 1115 Facilitators: Maribell Hood HOLISTIC SPECIALIST Department: [facility] Recovery Number of Participants: 1 Group Focus: activities of daily living skills, check in, communication, daily focus, family, feeling awareness/expression, healthy friendships, leisure skills, self-awareness, self-esteem, and social skills Treatment Modality: Leisure Development and Patient-Centered Therapy Interventions utilized were active listening, leisure development, reminiscence, story telling, and support Purpose: enhance coping skills, express feelings, improve communication skills, increase insight or knowledge, and reinforce self-care Name: Daron Villarreal Date of : 1985 MR: [id number] Level of Participation: active Quality of Participation: attentive, cooperative, and engaged Interactions with others: supportive Mood/Affect: appropriate Progress: Moderate Response: Pt. Engaged in group alongside HOLISTIC SPECIALIST. Pt. Participated in group discussion about reflecting on family and friend relationships as well as new hobbies to engage in. Plan: Pt. Will be encouraged to continue attending therapeutic recreation interventions with the HOLISTIC SPECIALIST and peers while on the unit. Patients Problems: Patient Active Problem List Diagnosis Alcohol abuse with withdrawal (CMS/HCC) GERD (gastroesophageal reflux disease) Alcohol dependence with withdrawal, uncomplicated ([facility]/HCC) Alcohol abuse ETOH abuse [facility] NURSNOTEon 12-10-2023 NURSNOTE Evening meds given a long with PRN tylenol & gabapentin for body aches and vistaril for anxiety. Denies any other needs at this time. Normal [facility] 30on 12-09-2023 30 The patient is Moder ately Stable - Low risk of patient condition declining or worsening The patient's goals for the shift include sleep, rest The clinical goals for the shift include manage withdrawal symptoms Problem: Substance Abuse (Historic and Current) Goal: LTG-Ability to name resources Outcome: Progressing Goal: LTG-Ability to notice triggers Outcome: Progressing Goal: LTG-Understand the need for abstinence Outcome: Progressing Goal: STG-Indicate withdrawl symptoms Outcome: Progressing Goal: STG-Willing to engage in conversations about continued abstinence Outcome: Progressing Goal: STG-Reports why they were able to stop initially Outcome: Progressing Normal [facility] 94on 12-09-2023 94 Group Topic: Activit y Therapy Group Date: 12/09/2023 Start Time: 1829 End Time: 1926 Facilitators: KENISHA Bhardwaj Department: [facility] LEAD 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 Number of Participants: 1 Group Focus: activity therapy Treatment Modality: Leisure Development Interventions utilized were group exercise Purpose: reinforce self-care Name: Daron Villarreal Date of : 1985 MR: [id number] Level of Participation: refused Patients Problems: Patient Active Problem List Diagnosis Alcohol abuse with withdrawal (CMS/HCC) GERD (gastroesophageal reflux disease) Alcohol dependence with withdrawal, uncomplicated (CMS/HCC) Alcohol abuse ETOH abuse Normal [facility] 94 Group Topic: Activit y Therapy Group Date: 12/09/2023 Start Time: 1330 End Time: 1530 Facilitators: CHRIS Crow Department: [facility] Recovery Number of Participants: 3 Group Focus: acceptance, clarity of thought, communication, coping skills, feeling awareness/expression, leisure skills, relaxation, self-awareness, self-esteem, and social skills Treatment Modality: Art Therapy, Leisure Development, and Patient-Centered Therapy Interventions utilized were active listening, exploration, leisure development, and support Purpose: enhance coping skills, express feelings, increase insight or knowledge, regain self-worth, and reinforce self-care Name: Daron Villarreal Date of : 1985 MR: [id number] Level of Participation: withdrawn Progress: None Response: Pt. Was withdrawn from group and remained isolated in their room. Plan: Pt. Will be encouraged to attend therapeutic recreation interventions with the [facility] in the future. Patients Problems: Patient Active Problem List Diagnosis Alcohol abuse with withdrawal (CMS/HCC) GERD (gastroesophageal reflux disease) Alcohol dependence with withdrawal, uncomplicated (CMS/HCC) Alcohol abuse ETOH abuse Normal [facility] 94 Group Topic: Coping Skills Group Date: 12/09/2023 Start Time: 1030 End Time: 1130 Facilitators: CHRIS Crow Department: [facility] Recovery Number of Participants: 1 Group Focus: activities of daily living skills, check in, coping skills, family, feeling awareness/expression, goals/reality orientation, healthy friendships, impulsivity, leisure skills, problem solving, and self-awareness Treatment Modality: Leisure Development, Skills Training, and Solution-Focused Therapy Interventions utilized were active listening, leisure development, patient education, problem solving, and support Purpose: enhance coping skills, express feelings, improve communication skills, increase insight or knowledge, relapse prevention strategies, and trigger / craving management Name: Daron Villarreal Date of : 1985 MR: [id number] Level of Participation: active Quality of Participation: attentive, cooperative, and engaged Interactions with others: gave feedback Mood/Affect: appropriate Progress: Moderate Response: Pt. Engaged in group alongside HOLISTIC SPECIALIST. Pt. Participated in group discussion about identifying triggers and the use of coping skills for addiction. Plan: Pt. Will be encouraged to continue attending therapeutic recreation interventions with the HOLISTIC SPECIALIST and peers while on the unit. Patients Problems: Patient Active Problem List Diagnosis Alcohol abuse with withdrawal (CMS/HCC) GERD (gastroesophageal reflux disease) Alcohol dependence with withdrawal, uncomplicated (CMS/HCC) Alcohol abuse ETOH abuse [facility] 30on 12-08-2023 30 Problem: Substance A buse (Historic and Current) Goal: LTG-Ability to name resources Outcome: Progressing Goal: LTG-Ability to notice triggers Outcome: Progressing Goal: LTG-Understand the need for abstinence Outcome: Progressing Goal: STG-Indicate withdrawl symptoms Outcome: Progressing Goal: STG-Willing to engage in conversations about continued abstinence Outcome: Progressing Goal: STG-Reports why they were able to stop initially Outcome: Progressing The patient is Moderately Stable - Low risk of patient condition declining or worsening The patient's goals for the shift include sleep, rest The clinical goals for the shift include managing withdrawal symptoms Over the shift, the patient did not make progress toward the following goals. Barriers to progression include motivation. Recommendations to address these barriers include education. [facility] 30 The patient is Moder ately Stable - Low risk of patient condition declining or worsening The patient's goals for the shift include sleep, rest The clinical goals for the shift include manage withdrawal symptoms Problem: Substance Abuse (Historic and Current) Goal: LTG-Ability to name resources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 Negative. Cardiovascular: Negative. Gastrointestinal: Negative. Endocrine: Negative. Genitourinary: Negative. Musculoskeletal: Negative. Skin: Negative. Allergic/Immunologic: Negative. Neurological: Negative. Hematological: Negative. Psychiatric/Behavioral: Negative. All other systems reviewed and are negative. Physical Exam ED Triage Vitals [12/07/23 1106] Temp Heart Rate Resp BP 36.6 ???C (97.8 ???F) 89 18 143/90 SpO2 Temp Source Heart Rate Source Patient Position 100 % Oral Monitor Sitting BP Location FiO2 (%) Left arm -- Physical Exam Constitutional: Appearance: He is well-developed. HENT: Head: Normocephalic and atraumatic. Nose: Nose normal. Mouth/Throat: Mouth: Mucous membranes are moist. Eyes: Conjunctiva/sclera: Conjunctivae normal. Pupils: Pupils are equal, round, and reactive to light. Neck: Thyroid: No thyromegaly. Vascular: No JVD. Cardiovascular: Rate and Rhythm: Normal rate and regular rhythm. Pulmonary: Effort: Pulmonary effort is normal. No respiratory distress. Breath sounds: Normal breath sounds. No wheezing. Abdominal: General: Bowel sounds are normal. Palpations: Abdomen is soft. Musculoskeletal: General: Normal range of motion. Cervical back: Normal range of motion and neck supple. Skin: General: Skin is warm. Neurological: General: No focal deficit present. Mental Status: He is alert and oriented to person, place, and time. Mental status is at baseline. Procedures ED Course & MDM Labs Reviewed CBC WITH AUTO DIFFERENTIAL - Abnormal Result Value Auto WBC 8.60 RBC 5.25 Hemoglobin 16.5 Hematocrit 46.2 MCV 88.0 MCH 31.4 MCHC 35.7 (*) RDW 13.0 Neutrophils Relative 65.3 Lymphocytes Relative 23.1 Monocytes Relative 6.7 Eosinophils Relative 3.3 Basophils Relative 1.4 (*) Neutrophils Absolute 5.61 Lymphocytes Absolute 1.99 Monocytes Absolute 0.58 Eosinophils Absolute 0.28 Basophils Absolute 0.12 Platelets 282 nRBC % 0.0 Immature Granulocytes Relative 0.2 Immature Granulocytes Absolute 0.02 CBC AND DIFFERENTIAL Narrative: The following orders were created for panel order CBC and differential. Procedure Abnormality Status --------- ------ CBC auto differential[[id number]] Abnormal Final result Please view results for these tests on the individual orders. BASIC METABOLIC PANEL ETHANOL URINALYSIS TOXICOLOGY PANEL URINE ACETAMINOPHEN LEVEL SALICYLATE LEVEL TSH Diagnoses as of 12/09/23 0903 Psychiatric complaint Alcohol abuse Medical Decision Making Attestion Rodney Foster MD 12/09/23 0903 Normal [facility] ETHANOLon 12-07-2023 ETHANOL (MG/DL) IN SER/PLAS <10 Normal [facility] Comment on above: Performed By: #### L [id number] #### [facility] ([facility]) [address] [place] [address] ETHANOL CALCULATED (%) Normal [facility] Comment on above: Performed By: #### L [id number] #### [facility] ([facility]) [address] [place] [address] GAMMA GTon 12-07-2023 Amylase [Catalytic activity/Vol] 21 U/L Normal 9-64 [facility] Comment on above: Performed By: #### L [id number] #### [facility] ([facility]) [address] [place] [address] HEPATIC FUNCTION PANELon Albumin [Mass/Vol] 4.3 g/dL Normal 3.5-5.7 [facility] Comment on above: Performed By: #### L [id number] ####[facility] ([facility])[address] [place] [address] ALP [Catalytic activity/Vol] 52 U/L Normal 34-104 [facility] Comment on above: Performed By: #### L [id number] ####[facility] ([facility])[address] [place] [address] ALT [Catalytic activity/Vol] 17 U/L Normal 7-52 [facility] Comment on above: Performed By: #### L [id number] ####[facility] ([facility])[address] [place] [address] AST [Catalytic activity/Vol] 19 U/L Normal 13-39 [facility] Comment on above: Performed By: #### L [id number] ####[facility] ([facility])[address] [place] [address] Bilirubin [Mass/Vol] 1.3 mg/dL High 0.3-1.0 [facility] Comment on above: Performed By: #### L [id number] ####[facility] ([facility])[address] [place] [address] Magnesium [Mass/Vol] 0.2 mg/dL Normal 0-0.2 [facility] Comment on above: Performed By: #### L [id number] ####[facility] ([facility])[address] [place] [address] Protein [Mass/Vol] 6.9 g/dL Normal 6.0-8.3 [facility] Comment on above: Performed By: #### L [id number] ####[facility] ([facility])[address] [place] [address] MAGNESIUMon 12-07-2023 Magnesium [Mass/Vol] 2.0 mg/dL Normal 1.9-2.7 [facility] Comment on above: Performed By: #### L [id number] ####[facility] ([facility])[address] [place] [address] Magnesium [Mass/Vol] 1.9 mg/dL Normal 1.9-2.7 [facility] Comment on above: Performed By: #### L [id number] ####[facility] ([facility])[address] [place] [address] NURSNOTEon 12-07-2023 NURSNOTE Patient watching TV. Vital signs and assessment completed. Patient complains of anxiety and visible tremor noted. CIWA = 8. PRN vistaril and 1mg ativan given. Patient denies any other needs at this time. Normal [facility] NURSNOTE Patient resting in b ed watching TV. Denies all withdrawal symptoms. Appetite good, ate 100% of dinner. States I feel pretty good. Normal [facility] NURSNOTE Patient reports he i s here to withdraw from alcohol. Pt reports drinking 9-12 beers daily for the last week. Pt reports leaving [place] after 1 week because it was too big and it increased his anxiety. Pt reports his goal is to get back to [facility] where his family is, and where he is originally from. Pt denies current medical issues. Pt states the open rash/wound area to his left lower abdomen is still being treated with triple antibiotic ointment twice daily and is healing. No s/s infection present. No drainage, open to air. Pt has pin point red areas to his back that he states are acne. Pt denies current withdrawal symptoms, had ativan 2mg approx 30 mins ago in the ER. Normal [facility] PHOSPHORUSon 12-07-2023 Magnesium [Mass/Vol] 2.4 mg/dL Low 2.5-5.0 [facility] Comment on above: Performed By: #### L [id number] ####[facility] ([facility])[address] [place] [address] SALICYLATE LEVELon 4 SALICYLATES (MG/DL) IN SER/PLAS <2 Low 4-29 [facility] Comment on above: Performed By: #### L [id number] #### [facility] ([facility]) [address] [place] [address] TOXICOLOGY PANEL URINEon AMPHETAMINE+METHAMPHE TAMINE SCREEN (PRESENCE) IN URINE Negative Normal Negative [facility] Comment on above: Performed By: #### L [id number] ####[facility] ([facility])[address] [place] [address] BARBITURATES PRESENCE IN URINE BY SCREEN METHOD Negative Normal Negative [facility] Comment on above: Performed By: #### L [id number] ####[facility] [place] [address] Benzodiazepines Ql (U) Negative Normal Negative [facility] Comment on above: Performed By: #### L [id number] ####[facility] ([facility])[address] [place] [address] CANNABINOID (PRESENCE) IN URINE BY SCREEN METHOD Positive Abnormal Negative [facility] Comment on above: Performed By: #### L [id number] ####[facility] [place] [address] Cocaine Ql (U) Negative Normal Negative [facility] Comment on above: Performed By: #### L [id number] ####[facility] ([facility])[address] [place] [address] METHADONE (PRESENCE) IN URINE BY SCREEN METHOD Negative Normal Negative [facility] Comment on above: Performed By: #### L [id number] ####[facility] ([facility])[address] [place] [address] OPIATES (PRESENCE) IN URINE BY SCREEN METHOD Negative Normal Negative [facility] Comment on above: Performed By: #### L [id number] ####[facility] [place] [address] PHENCYCLIDINE PRESENCE IN URINE BY SCREEN METHOD Negative Normal Negative [facility] Comment on above: Performed By: #### L [id number] ####[facility] ([facility])[address] [place] [address] Propoxyphene Screen Ql (U) Negative Normal Negative [facility] Comment on above: Performed By: #### L [id number] ####[facility] ([facility])[address] [place] [address] TRICYCLIC ANTIDEPRESSANTS (PRESENCE) IN URINE Negative Normal Negative [facility] Comment on above: Performed By: #### L [id number] ####[facility] ([facility])[address] [facility] [place] [address] TSHon 12-07-2023 THYROTROPIN (MIU/L) IN SER/PLAS BY DETECTION LIMIT <= 0.05 MIU/L 2.64 mIU/L Normal 0.34-5.60 [facility] Comment on above: Performed By: #### L [id number] #### [facility] ([facility]) [address] [place] [address] URIC ACIDon 12-07-2023 Magnesium [Mass/Vol] 4.9 mg/dL Normal 4.4-7.6 [facility] Comment on above: Performed By: #### L [id number] ####[facility] ([facility])[address] [place] [address] URINALYSISon 12-07-2023 BILIRUBIN, TOTAL PRESENCE IN URINE Negative Normal Negative [facility] Comment on above: Order Comment: Micro scopics not performed on urines with negative chemical reactions unless requested on original order. Performed By: #### L [id number] #### [facility] ([facility]) [address] [place] [address] Clarity (U) Clear Normal Clear [facility] Comment on above: Order Comment: Micro scopics not performed on urines with negative chemical reactions unless requested on original order. Performed By: #### L [id number] #### [facility] ([facility]) [address] [place] [address] Color (U) Yellow Normal Yellow [facility] Comment on above: Order Comment: Micro scopics not performed on urines with negative chemical reactions unless requested on original order. Performed By: #### L [id number] #### [facility]) [address] [place] [address] Glucose (U) [Mass/Vol] Negative Normal Negative [facility] Comment on above: Order Comment: Micro scopics not performed on urines with negative chemical reactions unless requested on original order. Performed By: #### L [id number] #### [facility] ([facility]) [address] [place] [address] HEMOGLOBIN PRESENCE IN URINE Negative Normal Negative [facility] Comment on above: Order Comment: Micro scopics not performed on urines with negative chemical reactions unless requested on original order. Performed By: #### L [id number] #### [facility] ([facility]) [address] [place] [address] Ketones Ql (U) Negative Normal Negative [facility] Comment on above: Order Comment: Micro scopics not performed on urines with negative chemical reactions unless requested on original order. Performed By: #### L [id number] #### [facility] ([facility]) [address] [place] [address] LEUKOCYTE ESTERASE PRESENCE IN URINE BY TEST STRIP Negative Normal Negative [facility] Comment on above: Order Comment: Micro scopics not performed on urines with negative chemical reactions unless requested on original order. Performed By: #### L [id number] #### [facility] ([facility]) [address] [place] [address] NITRITE PRESENCE IN URINE Negative Normal Negative [facility] Comment on above: Order Comment: Micro scopics not performed on urines with negative chemical reactions unless requested on original order. Performed By: #### L [id number] #### [facility] ([facility]) [address] [place] [address] pH (U) 5.0 [pH] Normal 5.0-8.0 [facility] Comment on above: Order Comment: Micro scopics not performed on urines with negative chemical reactions unless requested on original order. Performed By: #### L [id number] #### [facility] ([facility]) [address] [place] [address] Protein (U) [Mass/Vol] Negative Normal Negative [facility] Comment on above: Order Comment: Micro scopics not performed on urines with negative chemical reactions unless requested on original order. Performed By: #### L [id number] #### [facility] ([facility]) [address] [place] [address] Specific gravity (U) [Rel density] 1.016 Normal 1.015-1.020 [facility] Comment on above: Order Comment: Micro scopics not performed on urines with negative chemical reactions unless requested on original order. Performed By: #### L AB60 #### [facility] ([facility]) [address] [place] [address] 30on 11-27-2023 30 Problem: Substance A buse (Historic and Current) Goal: LTG-Ability to name resources Outcome: Adequate for Discharge Goal: LTG-Ability to notice triggers Outcome: Adequate for Discharge Goal: LTG-Understand the need for abstinence Outcome: Adequate for Discharge Goal: STG-Indicate withdrawl symptoms Outcome: Adequate for Discharge Goal: STG-Willing to engage in conversations about continued abstinence Outcome: Adequate for Discharge Goal: STG-Indicate 3 triggers for using Outcome: Adequate for Discharge Goal: STG-Verbalize 3 coping tools and skills Outcome: Adequate for Discharge Goal: STG-Will verbalize 3 reasons for quitting Outcome: Adequate for Discharge Goal: STG-Reports why they were able to stop initially Outcome: Adequate for Discharge Normal [facility] 30 The patient is Moder ately Stable - Low risk of patient condition declining or worsening The patient's goals for the shift include comfort The clinical goals for the shift include safety, comfort, and sleep Normal [facility] DSon 11-27-2023 DS Discharge Date: 2023 Time Spent with Patient: 31 minutes spent with patient, discussing discharge instructions, ordering medications, reviewing lab work, communicating with other healthcare professionals, documenting clinical information and the patient's follow-up plan. Chief Complaint: Alcohol abuse and withdrawal Consults: GIM History of Present Illness: Mr. Villarreal is a 38yo male presenting to [facility] detox to withdraw from alcohol. Notable last admission was to [facility] in September of 2023, he was discharged to [facility] for outpatient substance use. He reports he is going through a lot . On bedside exam he is laying down comfortably in no acute distress reporting minimal withdrawal symptoms. CIWA 1 1. Alcohol: [ Beer] Quantity/method of use/frequency: [ 12 tall cans daily] Last used: [11/24/23 ] Total Length of use: [~10 years ] Pt Reported significant tolerance withdrawal symptoms over the years and multiple unsuccessful attempts to cut down or stop using alcohol and significant amount of time spent in getting alcohol, using alcohol, and recovering from its effect. Hospital Course: Patient responded adequately to the CIWA protocol as well as symptomatic treatment. No seizures or any signs and symptoms suggestive of delirium tremens seen during hospital stay. During the stay in the hospital, the patient participated in groups and several meetings with social workers to plan aftercare. There were no other acute psychiatric or medical emergencies seen during hospital stay. Patient was found to have a itchy, burning, painful rash and wound to lower abdomen for past 4 days. R/O VZV which was negative. Wound care consulted and recommended topical clindamycin and dry dressing. No surrounding cellulitis indications PO antibiotics. Lab Results: Results for orders placed or performed during the hospital encounter of 11/24/23 HSV 1 and 2, VZV DNA Specimen: Abdomen; Swab Result Value Ref Range HSV 1 DNA Not Detected Not Detected HSV 2 DNA Not Detected Not Detected VZV DNA Not Detected Not Detected Acetaminophen level Result Value Ref Range Acetaminophen Level <10 (L) 10 - 30 ug/mL Basic metabolic panel Result Value Ref Range Sodium 136 136 - 145 mmol/L Potassium 3.9 3.5 - 5.1 mmol/L Chloride 104 98 - 107 mmol/L CO2 25 21 - 31 mmol/L BUN 12 7 - 25 mg/dL Creatinine 0.80 0.70 - 1.30 mg/dL Glucose 86 70 - 100 mg/dL Calcium 9.3 8.6 - 10.3 mg/dL Anion Gap 11 7 - 20 mmol/L eGFR 115.5 >60.0 mL/min/1.73m*2 BUN/Creatinine Ratio 15.0 Cholesterol, total Result Value Ref Range Cholesterol 203 (H) 120 - 200 mg/dL Gamma GT Result Value Ref Range GGT 22 9 - 64 U/L Hepatic function panel Result Value Ref Range Total Bilirubin 0.6 0.3 - 1.0 mg/dL Bilirubin, Direct 0.1 0 - 0.2 mg/dL Alkaline Phosphatase 55 34 - 104 U/L AST 21 13 - 39 U/L ALT (SGPT) 22 7 - 52 U/L Total Protein 7.2 6.0 - 8.3 g/dL Albumin 4.2 3.5 - 5.7 g/dL Magnesium Result Value Ref Range Magnesium 2.1 1.9 - 2.7 mg/dL Phosphorus Result Value Ref Range Phosphorus 3.7 2.5 - 5.0 mg/dL TSH Result Value Ref Range TSH 7.06 (H) 0.34 - 5.60 mIU/L Uric acid Result Value Ref Range Uric Acid 6.5 4.4 - 7.6 mg/dL Urinalysis Result Value Ref Range Color, Urine Yellow Yellow Clarity, Urine Clear Clear pH, Urine 6.0 5.0 - 8.0 pH Leukocytes, Urine Negative Negative Nitrite, Urine Negative Negative Protein, Urine Negative Negative mg/dL Glucose, Urine Negative Negative mg/dL Bilirubin, Urine Negative Negative Specific [place], Urine 1.017 1.015 - 1.020 Ketones, Urine Negative Negative mg/dL Blood, Urine Negative Negative Detox Panel Urine Result Value Ref Range Barbiturate Screen, Ur Negative Negative Benzodiazepines Screen, Urine Negative Negative Propoxyphene, Ur Negative Negative Methadone Screen, Urine Negative Negative TCA, Urine Negative Negative PCP Scrn, Ur Negative Negative Opiate Scrn, Ur Negative Negative Cocaine Screen, Urine Negative Negative Amphetamine+Methamphetamin e Screen, Ur Negative Negative Cannabinoid Screen, Urine Positive (A) Negative RPR Result Value Ref Range RPR Nonreactive Nonreactive Alcohol Serum Result Value Ref Range Ethanol Calculated % Ethanol Lvl <10 mg/dL CBC auto differential Result Value Ref Range Auto WBC 7.95 4.00 - 10.60 10*3/uL RBC 5.19 4.20 - 5.70 10*6/uL Hemoglobin 16.1 13.0 - 17.0 g/dL Hematocrit 45.1 39.0 - 55.0 % MCV 86.9 82.0 - 98.0 fL MCH 31.0 27.0 - 33.0 pg MCHC 35.7 (H) 32.0 - 35.0 g/dL RDW 12.6 11.5 - 15.0 % Neutrophils Relative 47.0 40.0 - 72.0 % Lymphocytes Relative 38.2 20.0 - 45.0 % Monocytes Relative 7.9 5.0 - 12.0 % Eosinophils Relative 5.2 0.0 - 6.0 % Basophils Relative 1.3 (H) 0.0 - 1.0 % Neutrophils Absolute 3.74 1.60 - 7.60 10*3/uL Lymphocytes Absolute 3.04 1.20 - 4.00 10*3/uL Monocytes Absolute 0.63 0.10 - 1.00 10*3/uL Eosinophils Absolute 0.41 0.00 - 0 (more content not included)... [facility] NURSNOTEon 11-27-2023 NURSNOTE Pt. Packed bags in r oom, given belongings from lock up bin. Discharge papers given. Medications will come from [facility] pharmacy, delivered to [facility]. Pt. Accompanied to main lobby where [employer] cab was to pick him up. [facility] NURSNOTE Patient slept 8 hour s through the night. Scheduled and PRN medications are helping. [facility] 30on 11-26-2023 30 The patient is Moder ately Stable - Low risk of patient condition declining or worsening The patient's goals for the shift include comfort The clinical goals for the shift include safety, comfort, and sleep Problem: Substance Abuse (Historic and Current) Goal: LTG-Ability to name resources Outcome: Progressing Goal: LTG-Ability to notice triggers Outcome: Progressing Goal: LTG-Understand the need for abstinence Outcome: Progressing Goal: STG-Indicate withdrawl symptoms Outcome: Progressing Goal: STG-Willing to engage in conversations about continued abstinence Outcome: Progressing Goal: STG-Indicate 3 triggers for using Outcome: Progressing Goal: STG-Verbalize 3 coping tools and skills Outcome: Progressing Goal: STG-Will verbalize 3 reasons for quitting Outcome: Progressing Goal: STG-Reports why they were able to stop initially Outcome: Progressing [facility] 30 The patient is Moder ately Stable - Low risk of patient condition declining or worsening The patient's goals for the shift include safety, comfort, and sleep The clinical goals for the shift include safety, comfort, and sleep Problem: Substance Abuse (Historic and Current) Goal: LTG-Ability to name resources Outcome: Progressing Goal: LTG-Ability to notice triggers Outcome: Progressing Goal: LTG-Understand the need for abstinence Outcome: Progressing Goal: STG-Indicate withdrawl symptoms Outcome: Progressing Goal: STG-Willing to engage in conversations about continued abstinence Outcome: Progressing Goal: STG-Indicate 3 triggers for using Outcome: Progressing Goal: STG-Verbalize 3 coping tools and skills Outcome: Progressing Goal: STG-Will verbalize 3 reasons for quitting Outcome: Progressing Goal: STG-Reports why they were able to stop initially Outcome: Progressing Normal [facility] 94on 11-26-2023 94 Group Topic: Activit y Therapy Group Date: 11/26/2023 Start Time: 1330 End Time: 1415 Facilitators: CHRIS Crow Department: [facility] Recovery Number of Participants: 1 Group Focus: anxiety, clarity of thought, communication, coping skills, feeling awareness/expression, leisure skills, self-awareness, self-esteem, and social skills Treatment Modality: Interpersonal Therapy and Leisure Development Interventions utilized were active listening, clarification, exploration, leisure development, problem solving, and support Purpose: enhance coping skills, express feelings, improve communication skills, increase insight or knowledge, regain self-worth, and reinforce self-care Name: Daron Villarreal Date of : 1985 MR: [id number] Level of Participation: withdrawn Progress: None Response: Pt. Was withdrawn from group and remained isolated in their room. Plan: Pt. Will be encouraged to attend therapeutic recreation interventions with the HOLISTIC SPECIALIST in the future. Patients Problems: Patient Active Problem List Diagnosis Alcohol abuse with withdrawal (CMS/HCC) GERD (gastroesophageal reflux disease) Alcohol dependence with withdrawal, uncomplicated (CMS/HCC) [facility] 94 Group Topic: Relaxat ion Group Date: 11/26/2023 Start Time: 1030 End Time: 1130 Facilitators: CHRIS Crow Department: [facility] Recovery Number of Participants: 2 Group Focus: activities of daily living skills, affirmation, coping skills, daily focus, depression, feeling awareness/expression, leisure skills, relaxation, and self-awareness Treatment Modality: Leisure Development, Patient-Centered Therapy, and Skills Training Interventions utilized were active listening, exploration, leisure development, patient education, and support Purpose: enhance coping skills, explore maladaptive thinking, express feelings, increase insight or knowledge, regain self-worth, and reinforce self-care Name: Daron Villarreal Date of : 1985 MR: [id number] Level of Participation: refused Progress: None Response: Pt. Actively refused integration into group with HOLISTIC SPECIALIST and peers at this time. Plan: Pt. Will be encouraged to attend therapeutic recreation interventions with the HOLISTIC SPECIALIST in the future. Patients Problems: Patient Active Problem List Diagnosis Alcohol abuse with withdrawal (CMS/HCC) GERD (gastroesophageal reflux disease) Alcohol dependence with withdrawal, uncomplicated (CMS/HCC) [facility] NURSNOTEon 11-26-2023 NURSNOTE Patient resting in b ed in no acute distress, C/O anxiety, restless legs, abdomen rash discomfort, nicotine cravings, and insomnia. CIWA=2. Scheduled and PRN medications given. [facility] NURSNOTE Patient slept 8 hour s through the night. Scheduled and PRN medications are helping. [facility] NURSNOTE RN woke patient up t o check CIWA score and vital signs. CIWA=1. RN will continue to monitor. [facility] NURSNOTE CIWA=0. [facility] 30on 11-25-2023 30 The patient is Moder ately Stable - Low risk of patient condition declining or worsening The patient's goals for the shift include safety, comfort, and sleep The clinical goals for the shift include safety, comfort, and sleep Problem: Substance Abuse (Historic and Current) Goal: LTG-Ability to name resources Outcome: Progressing Goal: LTG-Ability to notice triggers Outcome: Progressing Goal: LTG-Understand the need for abstinence Outcome: Progressing Goal: STG-Indicate withdrawl symptoms Outcome: Progressing Goal: STG-Willing to engage in conversations about continued abstinence Outcome: Progressing Goal: STG-Indicate 3 triggers for using Outcome: Progressing Goal: STG-Verbalize 3 coping tools and skills Outcome: Progressing Goal: STG-Will verbalize 3 reasons for quitting Outcome: Progressing Goal: STG-Reports why they were able to stop initially Outcome: Progressing [facility] 30 The patient is Moder ately Stable - Low risk of patient condition declining or worsening The patient's goals for the shift include comfort, sleep The clinical goals for the shift include Manage withdrawal symptoms Problem: Substance Abuse (Historic and Current) Goal: LTG-Ability to name resources Outcome: Progressing Goal: LTG-Ability to notice triggers Outcome: Progressing Goal: LTG-Understand the need for abstinence Outcome: Progressing Goal: STG-Indicate withdrawl symptoms Outcome: Progressing Goal: STG-Willing to engage in conversations about continued abstinence Outcome: Progressing Goal: STG-Indicate 3 triggers for using Outcome: Progressing Goal: STG-Verbalize 3 coping tools and skills Outcome: Progressing Goal: STG-Will verbalize 3 reasons for quitting Outcome: Progressing Goal: STG-Reports why they were able to stop initially Outcome: Progressing Normal [facility] 94on 11-25-2023 94 Group Topic: Craving s and Urges Group Date: 11/25/2023 Start Time: 1825 End Time: 1909 Facilitators: KENISHA Bhardwaj Department: [facility] LEAD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 [id number] ####[facility] ([facility])[address] [place] [address] CBC WITH AUTO DIFFERENTIALon 11-24-2023 Basophils (Bld) [#/Vol] 0.10 10*3/uL Normal 0.00-0.20 [facility] Comment on above: Performed By: #### L [id number] ####[facility] ([facility])[address] [place] [address] Basophils/100 WBC (Bld) 1.3 % High 0.0-1.0 [facility] Comment on above: Performed By: #### L [id number] ####[facility] (BEAKER)[address] [place] [address] Eosinophils (Bld) [#/Vol] 0.41 10*3/uL Normal 0.00-0.50 [facility] Comment on above: Performed By: #### L [id number] ####[facility] (BEAKER)[address] [place] [address] Eosinophils/100 WBC (Bld) 5.2 % Normal 0.0-6.0 [facility] Comment on above: Performed By: #### L [id number] ####[facility] ([facility])[address] [place] [address] Erythrocyte distribution width (RBC) [Ratio] 12.6 % Normal 11.5-15.0 [facility] Comment on above: Performed By: #### L [id number] ####[facility] ([facility])[address] [place] [address] ERYTHROCYTE MEAN CORPUSCULAR HEMOGLOBIN CONCENTRATION (G/DL) BY AUTOMATED 35.7 g/dL High 32.0-35.0 [facility] Comment on above: Performed By: #### L [id number] ####[facility] ([facility])[address] [place] [address] Hematocrit (Bld) [Volume fraction] 45.1 % Normal 39.0-55.0 [facility] Comment on above: Performed By: #### L [id number] ####[facility] (BEAKER)[address] [place] [address] Hemoglobin (Bld) [Mass/Vol] 16.1 g/dL Normal 13.0-17.0 [facility] Comment on above: Performed By: #### L [id number] ####[facility] (BEAKER)[address] [place] [address] Immature granulocytes (Bld) [#/Vol] 0.03 10*3/uL Normal 0.00-0.20 [facility] Comment on above: Performed By: #### L [id number] ####[facility] (BEAKER)[address] [place] [address] Immature granulocytes/100 WBC (Bld) 0.4 % Normal 0.0-1.0 [facility] Comment on above: Performed By: #### L [id number] ####[facility] (BEAKER)[address] [place] [address] Lymphocytes (Bld) [#/Vol] 3.04 10*3/uL Normal 1.20-4.00 [facility] Comment on above: Performed By: #### L [id number] ####[facility] (BEAKER)[address] [place] [address] Lymphocytes/100 WBC (Bld) 38.2 % Normal 20.0-45.0 [facility] Comment on above: Performed By: #### L [id number] ####[facility] (BEAKER)[address] [place] [address] MCH (RBC) [Entitic mass] 31.0 pg Normal 27.0-33.0 [facility] Comment on above: Performed By: #### L [id number] ####[facility] (BEAKER)[address] [place] [address] MCV (RBC) [Entitic vol] 86.9 fL Normal 82.0-98.0 [facility] Comment on above: Performed By: #### L [id number] ####[facility] (BEAKER)[address] [place] [address] Monocytes (Bld) [#/Vol] 0.63 10*3/uL Normal 0.10-1.00 [facility] Comment on above: Performed By: #### L [id number] ####[facility] (BEAKER)[address] [place] [address] Monocytes/100 WBC (Bld) 7.9 % Normal 5.0-12.0 [facility] Comment on above: Performed By: #### L [id number] ####[facility] (BEAKER)[address] [place] [address] Neutrophils (Bld) [#/Vol] 3.74 10*3/uL Normal 1.60-7.60 [facility] Comment on above: Performed By: #### L [id number] ####[facility] ([facility])[address] [place] [address] Neutrophils/100 WBC (Bld) 47.0 % Normal 40.0-72.0 [facility] Comment on above: Performed By: #### L [id number] ####[facility] ([facility])[address] [place] [address] NRBC (PER 100 WBCS) BY AUTOMATED COUNT 0.0 % Normal 0 [facility] Comment on above: Performed By: #### L [id number] ####[facility] ([facility])[address] [place] [address] PLATELETS (10*3/UL) IN BLOOD AUTOMATED COUNT 332 10*3/uL Normal 150-400 [facility] Comment on above: Performed By: #### L [id number] ####[facility] ([facility])[address] [place] [address] RBC (Bld) [#/Vol] 5.19 10*6/uL Normal 4.20-5.70 [facility] Comment on above: Performed By: #### L [id number] ####[facility] ([facility])[address] [place] [address] WBC (Bld) [#/Vol] 7.95 10*3/uL Normal 4.00-10.60 [facility] Comment on above: Performed By: #### L [id number] ####[facility] [place] [address] CHOLESTEROL, TOTALon 024 Cholesterol [Mass/Vol] 203 mg/dL High 120-200 [facility] Comment on above: Result Comment: CHOL ESTEROL REFERENCE RANGE: 20 YEARS AND OLDER CARDIOVASCULAR RISK Less than 200 mg/dL Low Risk 200 to 239 mg/dL Borderline Risk 240 mg/dL and greater High Risk Performed By: #### L [id number] #### [facility] (BEAKER) [address] [place] [address] DETOX PANEL URINEon 11-24-19 AMPHETAMINE+METHAMPHE TAMINE SCREEN (PRESENCE) IN URINE Negative Normal Negative [facility] Comment on above: Performed By: #### L [id number] ####[facility] ([facility])[address] [place] [place] [address] BARBITURATES PRESENCE IN URINE BY SCREEN METHOD Negative Normal Negative [facility] Comment on above: Performed By: #### L [id number] ####[facility] ([facility])[address] [place] [address] Benzodiazepines Ql (U) Negative Normal Negative [facility] Comment on above: Performed By: #### L [id number] ####[facility] ([facility])[address] [place] [address] CANNABINOID (PRESENCE) IN URINE BY SCREEN METHOD Positive Abnormal Negative [facility] Comment on above: Performed By: #### L [id number] ####[facility] ([facility])[address] [place] [address] Cocaine Ql (U) Negative Normal Negative [facility] Comment on above: Performed By: #### L [id number] ####[facility] ([facility])[address] [place] [address] METHADONE (PRESENCE) IN URINE BY SCREEN METHOD Negative Normal Negative [facility] Comment on above: Performed By: #### L [id number] ####[facility] ([facility])[address] [place] [address] OPIATES (PRESENCE) IN URINE BY SCREEN METHOD Negative Normal Negative [facility] Comment on above: Performed By: #### L [id number] ####[facility] ([facility])[address] [place] [address] PHENCYCLIDINE PRESENCE IN URINE BY SCREEN METHOD Negative Normal Negative [facility] Comment on above: Performed By: #### L [id number] ####[facility] ([facility])[address] [place] [address] Propoxyphene Screen Ql (U) Negative Normal Negative [facility] Comment on above: Performed By: #### L [id number] ####[facility] [place] [address] TRICYCLIC ANTIDEPRESSANTS (PRESENCE) IN URINE Negative Normal Negative [facility] Comment on above: Performed By: #### L [id number] ####[facility] ([facility] [place] [address] ETHANOLon 11-24-2023 ETHANOL (MG/DL) IN SER/PLAS <10 Normal [facility] Comment on above: Performed By: #### L [id number] #### [facility] ([facility]) [address] [place] [address] ETHANOL CALCULATED (%) Normal [facility] Comment on above: Performed By: #### L [id number] #### [facility] ([facility]) [address] [place] [address] GAMMA GTon 11-24-2023 Amylase [Catalytic activity/Vol] 22 U/L Normal 9-64 [facility] Comment on above: Performed By: #### L [id number] #### [facility] ([facility]) [address] [place] [address] HEPATIC FUNCTION PANELon Albumin [Mass/Vol] 4.2 g/dL Normal 3.5-5.7 [facility] Comment on above: Performed By: #### L [id number] #### [facility] ([facility]) [address] [place] [address] ALP [Catalytic activity/Vol] 55 U/L Normal 34-104 [facility] Comment on above: Performed By: #### L [id number] #### [facility] ([facility]) [address] [place] [address] ALT [Catalytic activity/Vol] 22 U/L Normal 7-52 [facility] Comment on above: Performed By: #### L [id number] #### [facility] (BEAKER) [address] [place] [address] AST [Catalytic activity/Vol] 21 U/L Normal 13-39 [facility] Comment on above: Performed By: #### L [id number] #### [facility] ([facility]) [address] [place] [address] Bilirubin [Mass/Vol] 0.6 mg/dL Normal 0.3-1.0 [facility] Comment on above: Performed By: #### L [id number] #### [facility] ([facility]) [address] [place] [address] Magnesium [Mass/Vol] 0.1 mg/dL Normal 0-0.2 [facility] Comment on above: Performed By: #### L [id number] #### [facility] ([facility]) [address] [place] [address] Protein [Mass/Vol] 7.2 g/dL Normal 6.0-8.3 [facility] Comment on above: Performed By: #### L [id number] #### [facility] ([facility]) [address] [place] [address] MAGNESIUMon 11-24-2023 Magnesium [Mass/Vol] 2.1 mg/dL Normal 1.9-2.7 [facility] Comment on above: Performed By: #### L [id number] #### [facility] ([facility]) [address] [place] [address] NURSNOTEon 11-24-2023 NURSNOTE Patient here to deto x from alcohol. Drinks a 12 pack of beer a day. Last drink today around 8am. Denies any other substance use. Compliant with intake procedure. Belongings checked and inventoried. Patient wanded for contraband. Patient denies any medical history but does take prozac daily which he states he ran out of a few days ago. Complains of headache, stomach cramps, and anxiety. Patient states he has a staph infection to his abdomen and was put on an antibiotic but doesn't remember the name of it. Wound cleaned and a dry dressing applied. Isolation cart ordered as patient doesn't know if it is MRSA. PRNs given along with scheduled meds. Urine taken down to lab. Normal [facility] PHOSPHORUSon 11-24-2023 Magnesium [Mass/Vol] 3.7 mg/dL Normal 2.5-5.0 [facility] Comment on above: Performed By: #### L [id number] ####[facility] ([facility])[address] [address] RPRon 11-24-2023 REAGIN AB PRESENCE IN SERUM BY RPR Non-Reactive Normal Nonreactive [facility] Comment on above: Performed By: #### L [id number] #### [facility] ([facility]) [address] [place] [address] T3, FREEon 11-24-2023 TRIIODOTHYRONINE (T3) FREE (PG/ML) IN SER/PLAS 3.9 pg/mL Normal 2.5-3.9 [facility] Comment on above: Performed By: #### L [id number] #### [facility] ([facility]) [address] [place] [place] [address] T4, FREEon 11-24-2023 THYROXINE (T4) FREE (NG/DL) IN SER/PLAS 1.16 ng/dL Normal 0.71-1.85 [facility] Comment on above: Performed By: #### L [id number] #### [facility] ([facility]) [address] [place] [place] [address] TSHon 11-24-2023 THYROTROPIN (MIU/L) IN SER/PLAS BY DETECTION LIMIT <= 0.05 MIU/L 7.06 mIU/L High 0.34-5.60 [facility] Comment on above: Performed By: #### L [id number] #### [facility] ([facility]) [address] [place] [address] URIC ACIDon 11-24-2023 Magnesium [Mass/Vol] 6.5 mg/dL Normal 4.4-7.6 [facility] Comment on above: Performed By: #### L [id number] ####[facility] ([facility])[address] [place] [address] URINALYSISon 11-24-2023 BILIRUBIN, TOTAL PRESENCE IN URINE Negative Normal Negative [facility] Comment on above: Order Comment: Micro scopics not performed on urines with negative chemical reactions unless requested on original order. Performed By: #### L [id number] #### [facility] ([facility]) [address] [place] [address] Clarity (U) Clear Normal Clear [facility] Comment on above: Order Comment: Micro scopics not performed on urines with negative chemical reactions unless requested on original order. Performed By: #### L [id number] #### [facility] ([facility]) [address] [place] [address] Color (U) Yellow Normal Yellow [facility] Comment on above: Order Comment: Micro scopics not performed on urines with negative chemical reactions unless requested on original order. Performed By: #### L [id number] #### [facility] ([facility]) [address] [place] [address] Glucose (U) [Mass/Vol] Negative Normal Negative [facility] Comment on above: Order Comment: Micro scopics not performed on urines with negative chemical reactions unless requested on original order. Performed By: #### L [id number] #### [facility] ([facility]) [address] [place] [address] HEMOGLOBIN PRESENCE IN URINE Negative Normal Negative [facility] Comment on above: Order Comment: Micro scopics not performed on urines with negative chemical reactions unless requested on original order. Performed By: #### L [id number] #### [facility] ([facility]) [address] [place] [address] Ketones Ql (U) Negative Normal Negative [facility] Comment on above: Order Comment: Micro scopics not performed on urines with negative chemical reactions unless requested on original order. Performed By: #### L [id number] #### [facility] ([facility]) [address] [place] [address] LEUKOCYTE ESTERASE PRESENCE IN URINE BY TEST STRIP Negative Normal Negative [facility] Comment on above: Order Comment: Micro scopics not performed on urines with negative chemical reactions unless requested on original order. Performed By: #### L [id number] #### [facility] ([facility]ER) [address] [place] [address] NITRITE PRESENCE IN URINE Negative Normal Negative [facility] Comment on above: Order Comment: Micro scopics not performed on urines with negative chemical reactions unless requested on original order. Performed By: #### L [id number] #### [facility] (BEAKER) [address] [place] [address] pH (U) 6.0 [pH] Normal 5.0-8.0 [facility] Comment on above: Order Comment: Micro scopics not performed on urines with negative chemical reactions unless requested on original order. Performed By: #### L [id number] #### [facility] ([facility] [address] [place] [address] Protein (U) [Mass/Vol] Negative Normal Negative [facility] Comment on above: Order Comment: Micro scopics not performed on urines with negative chemical reactions unless requested on original order. Performed By: #### L [id number] #### [facility] (BEAKER) [address] [place] [address] Specific gravity (U) [Rel density] 1.017 Normal 1.015-1.020 [facility] Comment on above: Order Comment: Micro scopics not performed on urines with negative chemical reactions unless requested on original order. Performed By: #### L [id number] #### [facility] (BEAKER) [address] [place] [address] 30on 10-01-2023 30 The patient is Moder ately Stable - Low risk of patient condition declining or worsening The patient's goals for the shift include to go home The clinical goals for the shift include safety Problem: Substance Abuse (Historic and Current) Goal: LTG-Ability to name resources Outcome: Progressing Goal: LTG-Ability to notice triggers Outcome: Progressing Goal: LTG-Understand the need for abstinence Outcome: Progressing Goal: STG-Indicate withdrawl symptoms Outcome: Progressing Goal: STG-Willing to engage in conversations about continued abstinence Outcome: Progressing Goal: STG-Reports why they were able to stop initially Outcome: Progressing Normal [facility] 94on 10-01-2023 94 Group Topic: Activit y Therapy Group Date: 10/01/2023 Start Time: 1030 End Time: 1125 Facilitators: FLAKITO CrowS Department: [facility] Number of Participants: 2 Group Focus: activities of daily living skills, check in, communication, concentration, family, feeling awareness/expression, forgiveness, healthy friendships, leisure skills, personal responsibility, self-awareness, self-esteem, and social skills Treatment Modality: Interpersonal Therapy and Leisure Development Interventions utilized were active listening, exploration, leisure development, and support Purpose: enhance coping skills, express feelings, express irrational fears, improve communication skills, increase insight or knowledge, regain self-worth, and reinforce self-care Name: Daron Villarreal Date of : 1985 MR: [id number] Level of Participation: active Quality of Participation: attentive, cooperative, and engaged Interactions with others: supportive Mood/Affect: appropriate Progress: Moderate Response: Pt. Engaged in group alongside HOLISTIC SPECIALIST and peers. Pt. Participated in group activity as well as discussion about family relationships and previous leisure hobbies. Plan: Pt. Will be encouraged to continue attending therapeutic recreation interventions with the HOLISTIC SPECIALIST and peers while on the unit. Patients Problems: Patient Active Problem List Diagnosis Alcohol abuse with withdrawal ([facility]) GERD (gastroesophageal reflux disease) Normal [facility] DSon 10-01-2023 DS Discharge Date: 10/01 Time Spent with Patient: 31 minutes spent with patient, discussing discharge instructions, ordering medications, reviewing lab work, communicating with other healthcare professionals, documenting clinical information and the patient's follow-up plan. Chief Complaint: Alcohol abuse and withdrawal Consults: GIM History of Present Illness: Daron Villarreal is a 38 YOM that presents to [facility] for alcohol dependence with active withdrawal. Patient reports drinking at least a 12 pack of beer daily with last intake being 09/27/2023 at 10 PM. Patient reports abusing alcohol on and off since the age of 15. Denies any illicit drug use at this time. Patient endorses alcohol withdrawal symptoms such as anxiety, tremors, restlessness, mind racing and cravings /10. Patient reports hx of anxiety, depression and PTSD with past treatment at [facility] a few months ago when he was seeing a counselor. Patient is currently prescribed prozac, Buspar and gabapentin that was prescribed from a recent hospitalization at [facility]. Patient was hospitalized due to depression and suicidal thoughts. No current thoughts of SI, HI or AVH. 1. Alcohol: Beer Quantity/method of use/frequency: 12 Pack of beer daily Last used: 09/27/2023 10 PM Total Length of use: off and on since age 15 Pt Reported significant tolerance withdrawal symptoms over the years and multiple unsuccessful attempts to cut down or stop using alcohol and significant amount of time spent in getting alcohol, using alcohol, and recovering from its effect. Hospital Course: Patient responded adequately to the CIWA protocol as well as symptomatic treatment. No seizures or any signs and symptoms suggestive of delirium tremens seen during hospital stay. During the stay in the hospital, the patient participated in groups and several meetings with social workers to plan aftercare. There were no other acute psychiatric or medical emergencies seen during hospital stay. Lab Results: Results for orders placed or performed during the hospital encounter of 09/28/23 SARS-CoV-2 PCR Specimen: Nose; Swab Result Value Ref Range SARS-CoV-2 PCR Negative Negative Acetaminophen level Result Value Ref Range Acetaminophen Level <10 (L) 10 - 30 ug/mL Basic metabolic panel Result Value Ref Range Sodium 136 136 - 145 mmol/L Potassium 3.8 3.5 - 5.1 mmol/L Chloride 105 98 - 107 mmol/L CO2 25 21 - 31 mmol/L BUN 14 7 - 25 mg/dL Creatinine 0.97 0.70 - 1.30 mg/dL Glucose 96 70 - 100 mg/dL Calcium 9.1 8.6 - 10.3 mg/dL Anion Gap 10 7 - 20 mmol/L eGFR 101.8 >60.0 mL/min/1.73m*2 BUN/Creatinine Ratio 14.4 Cholesterol, total Result Value Ref Range Cholesterol 225 (H) 120 - 200 mg/dL Gamma GT Result Value Ref Range GGT 34 9 - 64 U/L Hepatic function panel Result Value Ref Range Total Bilirubin 0.7 0.3 - 1.0 mg/dL Bilirubin, Direct 0.1 0 - 0.2 mg/dL Alkaline Phosphatase 53 34 - 104 U/L AST 21 13 - 39 U/L ALT (SGPT) 25 7 - 52 U/L Total Protein 6.7 6.0 - 8.3 g/dL Albumin 4.3 3.5 - 5.7 g/dL Magnesium Result Value Ref Range Magnesium 2.0 1.9 - 2.7 mg/dL Phosphorus Result Value Ref Range Phosphorus 3.7 2.5 - 5.0 mg/dL TSH Result Value Ref Range TSH 9.84 (H) 0.34 - 5.60 mIU/L Uric acid Result Value Ref Range Uric Acid 6.4 4.4 - 7.6 mg/dL Urinalysis Result Value Ref Range Color, Urine Yellow Yellow Clarity, Urine Clear Clear pH, Urine 7.0 5.0 - 8.0 pH Leukocytes, Urine Trace (A) Negative Nitrite, Urine Negative Negative Protein, Urine Negative Negative mg/dL Glucose, Urine Negative Negative mg/dL Bilirubin, Urine Negative Negative Specific [place], Urine 1.023 (H) 1.015 - 1.020 Ketones, Urine Negative Negative mg/dL Blood, Urine Negative Negative Detox Panel Urine Result Value Ref Range Barbiturate Screen, Ur Negative Negative Benzodiazepines Screen, Urine Negative Negative Propoxyphene, Ur Negative Negative Methadone Screen, Urine Negative Negative TCA, Urine Negative Negative PCP Scrn, Ur Negative Negative Opiate Scrn, Ur Negative Negative Cocaine Screen, Urine Negative Negative Amphetamine+Methamphetamin e Screen, Ur Negative Negative Cannabinoid Screen, Urine Positive (A) Negative Alcohol Serum Result Value Ref Range Ethanol Calculated % Ethanol Lvl <10 mg/dL CBC auto differential Result Value Ref Range Auto WBC 7.96 4.00 - 10.60 10*3/uL RBC 5.08 4.20 - 5.70 10*6/uL Hemoglobin 15.5 13.0 - 17.0 g/dL Hematocrit 45.2 39.0 - 55.0 % MCV 89.0 82.0 - 98.0 fL MCH 30.5 27.0 - 33.0 pg MCHC 34.3 32.0 - 35.0 g/dL RDW 13.2 11.5 - 15.0 % Neutrophils Relative 46.9 40.0 - 72.0 % Lymphocytes Relative 37.2 20.0 - 45.0 % Monocytes Relative 8.5 5.0 - 12.0 % Eosinophils Relative 5.7 0.0 - 6.0 % Basophils Relative 1.3 (H) 0.0 - 1.0 % Neutrophils Absolute 3.74 1.60 - 7.60 10*3/uL Lymphocytes Absolute 2.96 1.20 - 4.00 10*3/uL Monocytes Absolute 0.68 0.10 - 1.00 10*3/uL E (more content not included)... [facility] NURSNOTEon 10-01-2023 STEPHENNOTE Patient was escorted by floor staff to the lobby to meet his cab home. He was ambulatory and denied any acute issues. He denied any SI, HI, AV, AH at time of discharge. Discharge education reviewed was given to patient including his current status, unit phone number, follow up appts & contact info, medications/scripts & time of next due doses, safety-proofing, and danger signals after discharge. Patient verbalized understanding and questions were answered. He verbalize agreement w/ discharge at this time. He received discharge paperwork, and After Visit Summary (AVS) @ time of discharge. Pt denies any concerns prior to discharge and is agreeable as well. Pt belongings returned to pt. [facility] STEPHENNOTE Pt awoken for AM programming and was compliant w/ AM routine - ADL's, vitals, meds folder work, & individual round w/ RN. Pt is calm, cooperative, & appropriate w/ both staff & peers. Pt is contributing to current AM milieu. Pt's goal for today is TO GO HOME. Pt reports SLEPT WELL overnight. Pt reports appetite is unchanged and pt did not eat breakfast. Pt reports current mood this AM as 9 on 1-10 scale (10=best). Pt Denied ideation, Denied intent, and Denied plan for suicide @ this time. Pt Denies ideation, Denies intent, and Denies plan for homicide this AM.Pt denies hallucinations at this time and is not attending to internal stimuli upon assessment. Pt denies NSSI thoughts this AM. Upon assessment, pt eye contact is good. Affect is Congruent with mood and topic of conversation. Speech is normal rate, tone and rhythm. [facility] NURSNOTE Pt slept throughout the night. No concerns voiced. Pt. States he slept well. No withdrawal symptoms noted at this time. [facility] 30on 09-30-2023 30 The patient is Moder ately Stable - Low risk of patient condition declining or worsening The patient's goals for the shift include Comfort The clinical goals for the shift include comfort, safety [facility] 30 The patient is Moder ately Stable - Low risk of patient condition declining or worsening The patient's goals for the shift include Comfort The clinical goals for the shift include comfort, safety Problem: Substance Abuse (Historic and Current) Goal: LTG-Ability to notice triggers Outcome: Progressing Goal: STG-Indicate withdrawl symptoms Outcome: Progressing Goal: STG-Willing to engage in conversations about continued abstinence Outcome: Progressing Normal [facility] 94on 09-30-2023 94 Group Topic: Dischar ge Planning Group Date: 09/30/2023 Start Time: 1835 End Time: 1915 Facilitators: KENISHA Bhardwaj Department: [facility] LEAD 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 Number of Participants: 3 Group Focus: discharge education Treatment Modality: Patient-Centered Therapy Interventions utilized were exploration Purpose: relapse prevention strategies Name: Daron Villarreal Date of : 1985 MR: [id number] Level of Participation: moderate Quality of Participation: cooperative Interactions with others: supportive Mood/Affect: appropriate Cognition: coherent/clear Progress: Moderate Patients Problems: Patient Active Problem List Diagnosis Alcohol abuse with withdrawal (CMS/HCC) GERD (gastroesophageal reflux disease) [facility] 94 Group Topic: Activit y Therapy Group Date: 09/30/2023 Start Time: 1530 End Time: 1600 Facilitators: CHRIS Crow Department: [facility] Number of Participants: 0 Group Focus: anxiety, communication, concentration, coping skills, depression, feeling awareness/expression, leisure skills, problem solving, and social skills Treatment Modality: Interpersonal Therapy and Leisure Development Interventions utilized were active listening, leisure development, patient education, problem solving, and support Purpose: enhance coping skills, express feelings, improve communication skills, increase insight or knowledge, regain self-worth, and reinforce self-care Name: Daron Villarreal Date of : 1985 MR: [id number] Level of Participation: refused Progress: None Response: Pt. Actively refused integration into group with HOLISTIC SPECIALIST and peers at this time. Plan: Pt. Will be encouraged to attend therapeutic recreation interventions with the HOLISTIC SPECIALIST in the future. Patients Problems: Patient Active Problem List Diagnosis Alcohol abuse with withdrawal (CMS/HCC) GERD (gastroesophageal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 34.3 g/dL Normal 32.0-35.0 [facility] Comment on above: Performed By: #### L [id number] #### [facility] ([facility]) [address] [place] [address] Hematocrit (Bld) [Volume fraction] 45.2 % Normal 39.0-55.0 [facility] Comment on above: Performed By: #### L [id number] #### [facility] [address] [place] [address] Hemoglobin (Bld) [Mass/Vol] 15.5 g/dL Normal 13.0-17.0 [facility] Comment on above: Performed By: #### L [id number] #### [facility] ([facility]) [address] [place] [address] Immature granulocytes (Bld) [#/Vol] 0.03 10*3/uL Normal 0.00-0.20 [facility] Comment on above: Performed By: #### L [id number] #### [facility] (BEAKER) [address] [place] [address] Immature granulocytes/100 WBC (Bld) 0.4 % Normal 0.0-1.0 [facility] Comment on above: Performed By: #### L [id number] #### [facility] ([facility]) [address] [place] [address] Lymphocytes (Bld) [#/Vol] 2.96 10*3/uL Normal 1.20-4.00 [facility] Comment on above: Performed By: #### L [id number] #### [facility] ([facility]) [address] [place] [address] Lymphocytes/100 WBC (Bld) 37.2 % Normal 20.0-45.0 [facility] Comment on above: Performed By: #### L [id number] #### [facility] ([facility]) [address] [place] [address] MCH (RBC) [Entitic mass] 30.5 pg Normal 27.0-33.0 [facility] Comment on above: Performed By: #### L [id number] #### [facility] ([facility]) [address] [place] [address] MCV (RBC) [Entitic vol] 89.0 fL Normal 82.0-98.0 [facility] Comment on above: Performed By: #### L [id number] #### [facility] ([facility]) [address] [place] [address] Monocytes (Bld) [#/Vol] 0.68 10*3/uL Normal 0.10-1.00 [facility] Comment on above: Performed By: #### L [id number] #### [facility] ([facility]) [address] [place] [address] Monocytes/100 WBC (Bld) 8.5 % Normal 5.0-12.0 [facility] Comment on above: Performed By: #### L [id number] #### [facility] ([facility]) [address] [place] [address] Neutrophils (Bld) [#/Vol] 3.74 10*3/uL Normal 1.60-7.60 [facility] Comment on above: Performed By: #### L [id number] #### [facility] ([facility]) [address] [place] [address] Neutrophils/100 WBC (Bld) 46.9 % Normal 40.0-72.0 [facility] Comment on above: Performed By: #### L [id number] #### [facility] ([facility]) [address] [place] [address] NRBC (PER 100 WBCS) BY AUTOMATED COUNT 0.0 % Normal 0 [facility] Comment on above: Performed By: #### L [id number] #### [facility] ([facility]) [address] [place] [address] PLATELETS (10*3/UL) IN BLOOD AUTOMATED COUNT 234 10*3/uL Normal 150-400 [facility] Comment on above: Performed By: #### L [id number] #### [facility] ([facility]) [address] [place] [address] RBC (Bld) [#/Vol] 5.08 10*6/uL Normal 4.20-5.70 [facility] Comment on above: Performed By: #### L [id number] #### [facility] ([facility]) [address] [place] [address] WBC (Bld) [#/Vol] 7.96 10*3/uL Normal 4.00-10.60 [facility] Comment on above: Performed By: #### L [id number] #### [facility] ([facility]) [address] [place] [address] CHOLESTEROL, TOTALon 023 Cholesterol [Mass/Vol] 225 mg/dL High 120-200 [facility] Comment on above: Result Comment: CHOL ESTEROL REFERENCE RANGE: 20 YEARS AND OLDER CARDIOVASCULAR RISK Less than 200 mg/dL Low Risk 200 to 239 mg/dL Borderline Risk 240 mg/dL and greater High Risk Performed By: #### L [id number] #### [facility] ([facility]) [address] [place] [address] DETOX PANEL URINEon 09-28-20 23 AMPHETAMINE+METHAMPHE TAMINE SCREEN (PRESENCE) IN URINE Negative Normal Negative [facility] Comment on above: Performed By: #### L [id number] #### [facility] ([facility]) [address] [place] [address] BARBITURATES PRESENCE IN URINE BY SCREEN METHOD Negative Normal Negative [facility] Comment on above: Performed By: #### L [id number] #### [facility] ([facility]) [address] [place] [address] Benzodiazepines Ql (U) Negative Normal Negative [facility] Comment on above: Performed By: #### L [id number] #### [facility] ([facility]) [address] [place] [address] CANNABINOID (PRESENCE) IN URINE BY SCREEN METHOD Positive Abnormal Negative [facility] Comment on above: Performed By: #### L [id number] #### [facility] ([facility]) [address] [place] [address] Cocaine Ql (U) Negative Normal Negative [facility] Comment on above: Performed By: #### L [id number] #### [facility] ([facility]) [address] [place] [address] METHADONE (PRESENCE) IN URINE BY SCREEN METHOD Negative Normal Negative [facility] Comment on above: Performed By: #### L [id number] #### [facility] ([facility]) [address] [place] [address] OPIATES (PRESENCE) IN URINE BY SCREEN METHOD Negative Normal Negative [facility] Comment on above: Performed By: #### L [id number] #### [facility] ([facility] [address] [place] [address] PHENCYCLIDINE PRESENCE IN URINE BY SCREEN METHOD Negative Normal Negative [facility] Comment on above: Performed By: #### L [id number] #### [facility] [address] [place] [address] Propoxyphene Screen Ql (U) Negative Normal Negative [facility] Comment on above: Performed By: #### L [id number] #### [facility] [address] [place] [address] TRICYCLIC ANTIDEPRESSANTS (PRESENCE) IN URINE Negative Normal Negative [facility] Comment on above: Performed By: #### L [id number] #### [facility] ([facility]) [address] [place] [address] ETHANOLon 09-28-2023 ETHANOL (MG/DL) IN SER/PLAS <10 Normal [facility] Comment on above: Performed By: #### L [id number] #### [facility] ([facility]) [address] [place] [address] ETHANOL CALCULATED (%) Normal [facility] Comment on above: Performed By: #### L [id number] #### [facility] ([facility]) [address] [place] [address] GAMMA GTon 09-28-2023 Amylase [Catalytic activity/Vol] 34 U/L Normal 9-64 [facility] Comment on above: Performed By: #### L [id number] #### [facility] ([facility]) [address] [place] [address] HEPATIC FUNCTION PANELon Albumin [Mass/Vol] 4.3 g/dL Normal 3.5-5.7 [facility] Comment on above: Performed By: #### L [id number] ####[facility] ([facility])[address] [place] [address] ALP [Catalytic activity/Vol] 53 U/L Normal 34-104 [facility] Comment on above: Performed By: #### L [id number] ####[facility] ([facility])[address] [place] [address] ALT [Catalytic activity/Vol] 25 U/L Normal 7-52 [facility] Comment on above: Performed By: #### L [id number] ####[facility] ([facility])[address] [place] [address] AST [Catalytic activity/Vol] 21 U/L Normal 13-39 [facility] Comment on above: Performed By: #### L [id number] ####[facility] ([facility])[address] [place] [address] Bilirubin [Mass/Vol] 0.7 mg/dL Normal 0.3-1.0 [facility] Comment on above: Performed By: #### L [id number] ####[facility] ([facility])[address] [place] [address] Magnesium [Mass/Vol] 0.1 mg/dL Normal 0-0.2 [facility] Comment on above: Performed By: #### L [id number] ####[facility] ([facility])[address] [place] [address] Protein [Mass/Vol] 6.7 g/dL Normal 6.0-8.3 [facility] Comment on above: Performed By: #### L [id number] ####[facility] ([facility])[address] [place] [address] MAGNESIUMon 09-28-2023 Magnesium [Mass/Vol] 2.0 mg/dL Normal 1.9-2.7 [facility] Comment on above: Performed By: #### L [id number] #### [facility] ([facility]) [address] [place] [address] NURSNOTEon 09-28-2023 NURSNOTE Patient arrived in n o acute distress, patient wanded for metal and belongings checked. No metal or contraband found. Participation agreement signed. Last drink of 8-12 beers was at 2200 on 09/27/23. Patient C/O tremors, anxiety, restless legs, constipation, indigestion, sweats, nicotine cravings, and insomnia. Normal [facility] PHOSPHORUSon 09-28-2023 Magnesium [Mass/Vol] 3.7 mg/dL Normal 2.5-5.0 [facility] Comment on above: Performed By: #### L [id number] ####[facility] ([facility])[address] [place] [address] RPRon 09-28-2023 REAGIN AB PRESENCE IN SERUM BY RPR Non-Reactive Normal Nonreactive [facility] Comment on above: Performed By: #### L [id number] ####[facility] ([facility])[address] [place] [address] TSHon 09-28-2023 THYROTROPIN (MIU/L) IN SER/PLAS BY DETECTION LIMIT <= 0.05 MIU/L 9.84 mIU/L High 0.34-5.60 [facility] Comment on above: Performed By: #### L [id number] #### [facility] ([facility]) [address] [place] [address] URIC ACIDon 09-28-2023 Magnesium [Mass/Vol] 6.4 mg/dL Normal 4.4-7.6 [facility] Comment on above: Performed By: #### L [id number] ####[facility] ([facility])[address] [place] [address] URINALYSISon 09-28-2023 BILIRUBIN, TOTAL PRESENCE IN URINE Negative Normal Negative [facility] Comment on above: Performed By: #### L [id number] ####[facility] ([facility])[address] [place] [address] Clarity (U) Clear Normal Clear [facility] Comment on above: Performed By: #### L [id number] ####[facility] ([facility])[address] [place] [address] Color (U) Yellow Normal Yellow [facility] Comment on above: Performed By: #### L [id number] ####[facility] ([facility])[address] [place] [address] Glucose (U) [Mass/Vol] Negative Normal Negative [facility] Comment on above: Performed By: #### L [id number] ####[facility] ([facility])[address] [place] [address] HEMOGLOBIN PRESENCE IN URINE Negative Normal Negative [facility] Comment on above: Performed By: #### L [id number] ####[facility] ([facility])[address] [place] [address] Ketones Ql (U) Negative Normal Negative [facility] Comment on above: Performed By: #### L [id number] ####[facility] ([facility])[address] [place] [address] LEUKOCYTE ESTERASE PRESENCE IN URINE BY TEST STRIP Trace Abnormal Negative [facility] Comment on above: Performed By: #### L [id number] ####[facility] ([facility])[address] [place] [address] NITRITE PRESENCE IN URINE Negative Normal Negative [facility] Comment on above: Performed By: #### L [id number] ####[facility] ([facility])[address] [place] [address] pH (U) 7.0 [pH] Normal 5.0-8.0 [facility] Comment on above: Performed By: #### L [id number] ####[facility] ([facility])[address] [place] [address] Protein (U) [Mass/Vol] Negative Normal Negative [facility] Comment on above: Performed By: #### L [id number] ####[facility] ([facility])[address] [place] [address] Specific gravity (U) [Rel density] 1.023 High 1.015-1.020 [facility] Comment on above: Performed By: #### L [id number] ####[facility] ([facility])[address] [place] [address] URINALYSIS MICROSCOPICon CASTS IN URINE Normal [facility] Comment on above: Performed By: #### L [id number] #### [facility] ([facility]) [address] [place] [address] CRYSTALS IN URINE Normal [facility] Comment on above: Performed By: #### L [id number] #### [facility] ([facility]) [address] [place] [address] MUCUS (#/HPF) IN URINE SEDIMENT Few Normal None Seen, Occasional, Few [facility] Comment on above: Performed By: #### L [id number] #### [facility] (BEAKER) [address] [place] [address] RBC (#/HPF) IN URINE SEDIMENT None Seen Normal None Seen [facility] Comment on above: Performed By: #### L [id number] #### [facility] ([facility]) [address] [place] [address] SQUAMOUS EPITHELIAL CELLS (#/HPF) IN URINE SEDIMENT Few Abnormal None Seen, Occasional [facility] Comment on above: Performed By: #### L [id number] #### [facility] ([facility]AKER) [address] [place] [address] WBC (LEUKOCYTE) (#/HPF) IN URINE SEDIMENT 6-10 Abnormal None Seen [facility] Comment on above: Performed By: #### L [id number] #### [facility] ([facility]AKER) [address] [place] [address] ANION GAPon 02-02-2023 Anion gap [Moles/Vol] 9 mmol/L 8.0 - 16.0 meq/l [facility] Comment on above: ANION GAP = Sodium - (Chloride + CO2) Performed at [facility] [address] [place] [id number] CBC with Auto Differentialon 02-02-2023 Basophils (Bld) [#/Vol] 0.1 10*3/uL [facility] Basophils/100 WBC (Bld) 0.7 % 0.0 - 3.0 % [facility] Eosinophils Absolute 0.2 [facility] Eosinophils/100 WBC (Bld) 2.2 % 0.0 - 4.0 % [facility] Hematocrit (Bld) [Volume fraction] 47.3 % 42.0 - 52.0 % [facility] Hemoglobin (Bld) [Mass/Vol] 16.4 g/dL [facility] Immature Grans (Abs) 0.01 [facility] Comment on above: Performed at [facility] [address] [place] [address] Immature granulocytes/100 WBC (Bld) 0 % [facility] Interpretation and review of laboratory results Abnormal [facility] Lymphocytes Absolute 2.8 [facility] Lymphocytes/100 WBC (Bld) 27.8 % 15.0 - 47.0 % [facility] MCH (RBC) [Entitic mass] 30.7 pg 26.0 - 32.0 pg [facility] MCHC (RBC) [Mass/Vol] 34.7 g/dL [facility] MCV (RBC) [Entitic vol] 88.4 fL 80.0 - 94.0 fL [facility] Monocytes 0.8 [facility] Monocytes/100 WBC (Bld) 8.1 % 0.0 - 12.0 % [facility] Platelet distribution width (Bld) [Ratio] 13.2 % 11.5 - 14.9 % [facility] Platelet mean volume (Bld) [Entitic vol] 9.2 fL Low 9.4 - 12.4 fL [facility] Platelets (Bld) [#/Vol] 242 10*3/uL [facility] RBC (Bld) [#/Vol] 5.35 10*6/uL [facility] Segmented neutrophils/100 WBC (Bld) 61.1 % 43.0 - 75.0 % [facility] Segs Absolute 6.2 [facility] WBC (Bld) [#/Vol] 10.1 10*3/uL [facility] COVID-19, Rapidon 02-02-2023 SARS-CoV-2 (COVID-19) RdRp gene BRITTANY+probe Ql (Resp) Not detected NOT DETECTED [facility] Comment on above: Rapid NAAT: Negative results should be treated as presumptive and, if inconsistent with clinical signs and symptoms or necessary for patient management, should be tested with an alternative molecular assay. Negative results do not preclude SARS-CoV-2 infection and should not be used as the sole basis for patient management decisions. This test has been authorized by the FDA under an Emergency Use Authorization (EUA) for use by authorized laboratories. Fact sheet for Healthcare Providers: https://www.fda.gov/media/968205/download Fact sheet for Patients: https://www.fda.gov/media/121299/download METHODOLOGY: Isothermal Nucleic Acid Amplification Performed at [facility] [address] [place] [address] Comprehensive metabolic 2000 panelon 02-02-2023 Albumin BCP dye [Mass/Vol] 3.5 [facility] ALP [Catalytic activity/Vol] 60 U/L 46 - 116 U/L [facility] ALT With P-5'-P [Catalytic activity/Vol] 39 U/L 14 - 63 U/L [facility] Comment on above: Sulfasalazine and Olmedo lfapyridine may interfere with testing and cause false results. For patients taking these medications, it is recommended that venipuncture occur prior to adminstra- tion of these drugs. Performed at [facility] [address] [place] [address] AST With P-5'-P [Catalytic activity/Vol] 21 U/L 15 - 37 U/L [facility] Comment on above: Sulfasalazine and Olmedo lfapyridine may interfere with testing and cause false results. For patients taking these medications, it is recommended that venipuncture occur prior to adminstra- tion of these drugs. Bilirubin [Mass/Vol] 0.6 mg/dL 0.2 - 1 .0 mg/dl [facility] Calcium [Mass/Vol] 9.1 mg/dL 8.5 - 10. 1 mg/dl [facility] Chloride [Moles/Vol] 103 mmol/L 98 - 10 7 meq/l [facility] CO2 [Moles/Vol] 28 mmol/L 21 - 32 meq/l [facility] Creatinine [Mass/Vol] 0.7 mg/dL 0.6 - 1.3 mg/dl [facility] Glucose [Mass/Vol] 94 mg/dL 74 - 106 mg/dl [facility] Comment on above: Sulfasalazine and Olmedo lfapyridine may interfere with testing and cause false results. For patients taking these medications, it is recommended that venipuncture occur prior to adminstra- tion of these drugs. Potassium [Moles/Vol] 3.8 mmol/L 3.5 - 5.1 meq/l [facility] Protein [Mass/Vol] 7.1 g/dL [facility] Sodium [Moles/Vol] 140 mmol/L 136 - 145 meq/l [facility] Urea nitrogen [Mass/Vol] 17 mg/dL 7 - 18 mg/dl [facility] [employer] ETOHon 02-02-2023 ANALYZED BY: [facility] [employer] Date Of Collection 02/02/23 [facility] Comment on above: Performed at [address] [address] Drawn By Lisbeth Luong [facility] Ethanol [Mass/Vol] mg/dL 0.00 % (gm/dl) [facility] [employer] Methodology XPAND [facility] [employer] Time Collected 182 [facility] [employer] Glomerular Filtration Rate, Estimatedon 02-02-2023 GFR/1.73 sq M.predicted MDRD (S/P/Bld) [Vol rate/Area] mL/min/{1.73_m2} - PINF [facility] Comment on above: Pediatric calculator link https://www.kidney.org/professionals/kdoqi/gfr_calculatorped Effective Jul 28, 2022 These results are not intended for use in patients <18 years of age. eGFR results are calculated without a race factor using the 2020 CKD-EPI equation. Careful clinical correlation is recommended, particularly when comparing to results calculated using previous equations. The CKD-EPI equation is less accurate in patients with extremes of muscle mass, extra-renal metabolism of creatinine, excessive creatine ingestion, or following therapy that affects renal tubular secretion. Performed at [address] [address] Magnesiumon 02-02-2023 Magnesium [Mass/Vol] 2.0 mg/dL 1.8 - 2 .4 mg/dl [facility] Comment on above: Performed at [address] [address] No Panel Informationon 02-02 [facility] [employer] SARS-CoV-2 (COVID-19) RdRp g jerry BRITTANY+probe Ql (Resp)on 02-02-2023 [facility] CBC with Auto Differentialon 01-24-2023 Absolute Eos # 0.43 [facility] [employer] Absolute Immature Granulocyte 0.03 [facility] [employer] Absolute Lymph # 2.65 [facility] X[employer]ER[employer] Absolute [place] # 0.76 [facility] Basophils (Bld) [#/Vol] 0.10 10*3/uL [facility] Basophils/100 WBC (Bld) 1 % 0 - 2 % [facility] Eosinophils/100 WBC (Bld) 4 % 1 - 4 % [facility] Hematocrit (Bld) [Volume fraction] 46.0 % 40.7 - 50.3 % [facility] Hemoglobin (Bld) [Mass/Vol] 15.5 g/dL 13.0 - 17.0 g/dL [facility] Immature granulocytes/100 WBC (Bld) 0 % 0 [facility] Lymphocytes/100 WBC (Bld) 26 % 24 - 43 % [facility] MCH (RBC) [Entitic mass] 30.5 pg 25.2 - 33.5 pg [facility] MCHC (RBC) [Mass/Vol] 33.7 g/dL 28.4 - 34.8 g/dL [facility] MCV (RBC) [Entitic vol] 90.4 fL 82.6 - 102.9 fL [facility] Monocytes/100 WBC (Bld) 8 % 3 - 12 % [facility] NRBC Automated 0.0 0.0 per 100 WBC [facility] Platelet distribution width (Bld) [Ratio] 13.7 % 11.8 - 14.4 % [facility] Platelet mean volume (Bld) [Entitic vol] 9.6 fL 8.1 - 13.5 fL [facility] Platelets (Bld) [#/Vol] 224 10*3/uL [facility] RBC (Bld) [#/Vol] 5.09 10*6/uL 4.21 - 5.7 7 m/uL [facility] Segmented neutrophils/100 WBC (Bld) 61 % 36 - 65 % [facility] Segs Absolute 6.09 [facility] WBC (Bld) [#/Vol] 10.1 10*3/uL [facility] [place] CMPon 01-24-2023 Albumin [Mass/Vol] 3.9 g/dL 3.5 - 5.2 g/dL [facility] Albumin/Globulin [Mass ratio] 1.3 {ratio} 1.0 - 2.5 [facility] ALP [Catalytic activity/Vol] 49 U/L 40 - 129 U/L [facility] ALT [Catalytic activity/Vol] 39 U/L 5 - 41 U/L [facility] Anion gap [Moles/Vol] 11 mmol/L 9 - 17 mmol/L [facility] AST [Catalytic activity/Vol] 38 U/L NINF - 40 U/L [facility] Bilirubin [Mass/Vol] 0.5 mg/dL 0.3 - 1 .2 mg/dL [facility] Calcium [Mass/Vol] 9.3 mg/dL 8.6 - 10. 4 mg/dL [facility] Chloride [Moles/Vol] 97 mmol/L Low 98 - 10 7 mmol/L [facility] CO2 [Moles/Vol] 26 mmol/L 20 - 31 mmol/L [facility] Creatinine [Mass/Vol] 0.77 mg/dL 0.70 - 1.20 mg/dL [facility] GFR/1.73 sq M.predicted MDRD (S/P/Bld) [Vol rate/Area] - PINF [facility] Comment on above: These results are not intended for use in patients <18 years of age. eGFR results are calculated without a race factor using the 2020 CKD-EPI equation. Careful clinical correlation is recommended, particularly when comparing to results calculated using previous equations. The CKD-EPI equation is less accurate in patients with extremes of muscle mass, extra-renal metabolism of creatine, excessive creatine ingestion, or following therapy that affects renal tubular secretion. Glucose [Mass/Vol] 126 mg/dL High 70 - 99 mg/dL [facility] Interpretation and review of laboratory results Abnormal [facility] Potassium [Moles/Vol] 3.9 mmol/L 3.7 - 5.3 mmol/L [facility] Protein [Mass/Vol] 6.8 g/dL 6.4 - 8.3 g/dL [facility] Sodium [Moles/Vol] 134 mmol/L Low 135 - 144 mmol/L [facility] Urea nitrogen [Mass/Vol] 13 mg/dL 6 - 20 mg/dL [facility] COVID-19, Rapidon 01-24-2023 SARS-CoV-2 (COVID-19) RdRp gene BRITTANY+probe Ql (Resp) Not detected Not Detected [facility] Comment on above: Rapid NAAT: The specimen is NEGATIVE for SARS-CoV-2, the novel coronavirus associated with COVID-19. The ID NOW COVID-19 assay is designed to detect the virus that causes COVID-19 in patients with signs and symptoms of infection who are suspected of COVID-19. An individual without symptoms of COVID-19 and who is not shedding SARS-CoV-2 virus would expect to have a negative (not detected) result in this assay. Negative results should be treated as presumptive and, if inconsistent with clinical signs and symptoms or necessary for patient management, should be tested with an alternative molecular assay. Negative results do not preclude SARS-CoV-2 infection and should not be used as the sole basis for patient management decisions. Fact sheet for Healthcare Providers: https://www.fda.gov/media/591375/download Fact sheet for Patients: https://www.fda.gov/media/902944/download Methodology: Isothermal Nucleic Acid Amplification Specimen Description .NASOPHARYNGEAL SWAB [facility] ETOHon 01-24-2023 Ethanol [Mass/Vol] mg/dL NINF - 10 mg/dL [facility] Ethanol percent <0.010 NINF - 0.010 % [facility] No Panel Informationon 01-24 [facility] Urine Drug Screenon 01-25-20 23 Amphetamine Screen, Ur Negative NEGATIVE [facility] Comment on above: (Positive cutoff 1000 ng/mL) Barbiturate Screen, Ur Negative NEGATIVE [facility] Comment on above: (Positive cutoff 200 ng/mL) Benzodiazepine Screen, Urine Positive Abnormal NEGATIVE [facility] Comment on above: (Positive cutoff 200 ng/mL) Cannabinoid Scrn, Ur Positive Abnormal NEGATIVE [facility] Comment on above: (Positive cutoff 50 ng/mL) Cocaine Metabolite, [facility]rine Negative [facility] Comment on above: (Positive cutoff 300 ng/mL) Fentanyl, Ur Negative NEGATIVE [facility] Comment on above: (Positive cutoff 5 ng/ml) Interpretation and review of laboratory results Abnormal [facility] Methadone Screen, Urine Negative NEGATIVE [facility] Comment on above: (Positive cutoff 300 ng/mL) Opiates, Urine Negative NEGATIVE [facility] Comment on above: (Positive cutoff 300 ng/mL) Oxycodone Screen, Ur Negative NEGATIVE [facility] Comment on above: (Positive cutoff 100 ng/mL) Phencyclidine, Urine Negative NEGATIVE [facility] Comment on above: (Positive cutoff 25 ng/mL) Test Information Assay provides medic al screening only. The absence of expected drug(s) and/or metabolite(s) may indicate diluted or adulterated urine, limitations of testing or timing of collection. [facility] Comment on above: Testing for legal pu rposes should be confirmed by another method. To request confirmation of test result, please call the lab within 7 days of sample submission. [facility] CBC with Auto Differentialon 01-20-2023 Absolute Eos # 0.17 [facility] Absolute Immature Granulocyte 0.03 [facility] Absolute Lymph # 2.76 [facility] Absolute [place] # 0.93 [facility] Basophils (Bld) [#/Vol] 0.10 10*3/uL [facility] Basophils/100 WBC (Bld) 1 % 0 - 2 % [facility] Eosinophils/100 WBC (Bld) 2 % 1 - 4 % [facility] Hematocrit (Bld) [Volume fraction] 47.6 % 40.7 - 50.3 % [facility] Hemoglobin (Bld) [Mass/Vol] 15.9 g/dL 13.0 - 17.0 g/dL [facility] Immature granulocytes/100 WBC (Bld) 0 % 0 [facility] Lymphocytes/100 WBC (Bld) 27 % 24 - 43 % [facility] MCH (RBC) [Entitic mass] 30.5 pg 25.2 - 33.5 pg [facility] MCHC (RBC) [Mass/Vol] 33.4 g/dL 28.4 - 34.8 g/dL [facility] MCV (RBC) [Entitic vol] 91.2 fL 82.6 - 102.9 fL [facility] Monocytes/100 WBC (Bld) 9 % 3 - 12 % [facility] NRBC Automated 0.0 0.0 per 100 WBC [facility] Platelet distribution width (Bld) [Ratio] 14.1 % 11.8 - 14.4 % [facility] Platelet mean volume (Bld) [Entitic vol] 9.6 fL 8.1 - 13.5 fL [facility] Platelets (Bld) [#/Vol] 279 10*3/uL [facility] RBC (Bld) [#/Vol] 5.22 10*6/uL 4.21 - 5.7 7 m/uL [facility] Segmented neutrophils/100 WBC (Bld) 61 % 36 - 65 % [facility] Segs Absolute 6.37 [facility] WBC (Bld) [#/Vol] 10.4 10*3/uL [facility] Comprehensive Metabolic Pane per 01-20-2023 Albumin [Mass/Vol] 4.2 g/dL 3.5 - 5.2 g/dL [facility] Albumin/Globulin [Mass ratio] 1.6 {ratio} 1.0 - 2.5 [facility] ALP [Catalytic activity/Vol] 57 U/L 40 - 129 U/L [facility] ALT [Catalytic activity/Vol] 34 U/L 5 - 41 U/L [facility] Anion gap [Moles/Vol] 12 mmol/L 9 - 17 mmol/L [facility] AST [Catalytic activity/Vol] 66 U/L High NINF - 40 U/L [facility] Bilirubin [Mass/Vol] 0.7 mg/dL 0.3 - 1 .2 mg/dL [facility] Calcium [Mass/Vol] 9.4 mg/dL 8.6 - 10. 4 mg/dL [facility] Chloride [Moles/Vol] 102 mmol/L 98 - 10 7 mmol/L [facility] CO2 [Moles/Vol] 21 mmol/L 20 - 31 mmol/L [facility] Creatinine [Mass/Vol] 0.59 mg/dL Low 0.70 - 1.20 mg/dL [facility] GFR/1.73 sq M.predicted MDRD (S/P/Bld) [Vol rate/Area] - PINF [facility] Comment on above: These results are not intended for use in patients <18 years of age. eGFR results are calculated without a race factor using the 2020 CKD-EPI equation. Careful clinical correlation is recommended, particularly when comparing to results calculated using previous equations. The CKD-EPI equation is less accurate in patients with extremes of muscle mass, extra-renal metabolism of creatine, excessive creatine ingestion, or following therapy that affects renal tubular secretion. Glucose [Mass/Vol] 112 mg/dL High 70 - 99 mg/dL [facility] Interpretation and review of laboratory results Abnormal [facility] Potassium [Moles/Vol] 4.3 mmol/L 3.7 - 5.3 mmol/L [facility] Protein [Mass/Vol] 6.9 g/dL 6.4 - 8.3 g/dL [facility] Sodium [Moles/Vol] 135 mmol/L 135 - 144 mmol/L [facility] Urea nitrogen [Mass/Vol] 11 mg/dL 6 - 20 mg/dL [facility] TOX SCR, BLD, EDon 3 Acetaminophen Level <5 Low 10 - 30 ug/mL [facility] Ethanol [Mass/Vol] mg/dL NINF - 10 mg/dL [facility] Ethanol percent <0.010 NINF - 0.010 % [facility] Interpretation and review of laboratory results Abnormal [facility] Salicylate Lvl mg/dL Low 3 - 10 mg/dL [facility] Toxic Tricyclic Sc,Blood Negative NEGATIVE [facility] Urine Drug Screenon 01-21-20 23 Amphetamine Screen, Ur Negative NEGATIVE [facility] Comment on above: (Positive cutoff 1000 ng/mL) Barbiturate Screen, Ur Negative NEGATIVE [facility] Comment on above: (Positive cutoff 200 ng/mL) Benzodiazepine Screen, Urine Negative NEGATIVE [facility] Comment on above: (Positive cutoff 200 ng/mL) Cannabinoid Scrn, Ur Positive Abnormal NEGATIVE [facility] Comment on above: (Positive cutoff 50 ng/mL) Cocaine Metabolite, Urine Negative NEGATIVE [facility] Comment on above: (Positive cutoff 300 ng/mL) Fentanyl, Ur Negative NEGATIVE [facility] Comment on above: (Positive cutoff 5 ng/ml) Interpretation and review of laboratory results Abnormal [facility] Methadone Screen, Urine Negative NEGATIVE [facility] Comment on above: (Positive cutoff 300 ng/mL) Opiates, Urine Negative NEGATIVE [facility] Comment on above: (Positive cutoff 300 ng/mL) Oxycodone Screen, Ur Negative NEGATIVE [facility] Comment on above: (Positive cutoff 100 ng/mL) Phencyclidine, Urine Negative NEGATIVE [facility] Comment on above: (Positive cutoff 25 ng/mL) Test Information Assay provides medic al screening only. The absence of expected drug(s) and/or metabolite(s) may indicate diluted or adulterated urine, limitations of testing or timing of collection. [facility] Comment on above: Testing for legal pu rposes should be confirmed by another method. To request confirmation of test result, please call the lab within 7 days of sample submission. [facility] Basic Metabolic Panelon Anion gap [Moles/Vol] 11 mmol/L 9 - 17 mmol/L [place] Bun/Cre Ratio NOT REPORTED [place] Calcium [Mass/Vol] 9.2 mg/dL 8.6 - 10. 4 mg/dL [place] Chloride [Moles/Vol] 104 mmol/L 98 - 10 7 mmol/L [place] CO2 [Moles/Vol] 21 mmol/L 20 - 31 mmol/L [place] Creatinine [Mass/Vol] 0.8 mg/dL 0.7 - 1.2 mg/dL [place] GFR >60 >60 mL/min [place] GFR Non- >60 >60 mL/min [place] GFR/1.73 sq M predicted among non-blacks MDRD (S/P/Bld) [Vol rate/Area] [place] Comment on above: Average GFR for 30-3 9 years old: 107 mL/min/1.73sq m Chronic Kidney Disease: <60 mL/min/1.73sq m Kidney failure: <15 mL/min/1.73sq m eGFR calculated using average adult body mass. Additional eGFR calculator available at: http://www.Reframe It/multiple_crcl_2012.htm GFR/1.73 sq M predicted among non-blacks MDRD (S/P/Bld) [Vol rate/Area] NOT REPORTED [place] Glucose [Mass/Vol] 91 mg/dL 70 - 99 mg/dL [place] Potassium [Moles/Vol] 3.8 mmol/L 3.7 - 5.3 mmol/L [place] Sodium [Moles/Vol] 136 mmol/L 135 - 144 mmol/L [place] Urea nitrogen [Mass/Vol] 13 mg/dL 6 - 20 mg/dL [place] Basic Metabolic Profon 06-26 (cont.) Normal [facility] Comment on above: Result Comment: Aver age GFR for 30-39 years old: 107 mL/min/1.73sq m Chronic Kidney Disease: <60 mL/min/1.73sq m Kidney failure: <15 mL/min/1.73sq m eGFR calculated using average adult body mass. Additional eGFR calculator available at: http://www.Reframe It/multiple_crcl_2011.htm Performed By: #### C DP, LAC, DIME, BMP, LIP, LIVP, TROPI #### [facility] [address] [place] [address] Vegetable Grader: Jonathan Castillo MD Anion gap [Moles/Vol] 11 mmol/L Normal - [facility] Comment on above: Performed By: #### C DP, LAC, DIME, BMP, LIP, LIVP, TROPI #### [facility] [address] [place] [address] Vegetable Grader: Jonathan Castillo MD Calcium [Mass/Vol] 9.2 mg/dL Normal 8.6-10.4 [facility] Comment on above: Performed By: #### C DP, LAC, DIME, BMP, LIP, LIVP, TROPI #### [facility] [address] [place] [address] Vegetable Grader: Jonathan Castillo MD Chloride [Moles/Vol] 104 mmol/L Normal 98-107 [facility] Comment on above: Performed By: #### C DP, LAC, DIME, BMP, LIP, LIVP, TROPI #### [facility] [address] [place] [address] Vegetable Grader: Jonathan Castillo MD CO2 [Moles/Vol] 21 mmol/L Normal 20-31 [facility] Comment on above: Performed By: #### C DP, LAC, DIME, BMP, LIP, LIVP, TROPI #### [facility] [address] [place] [address] [id number] Vegetable Grader: Jonathan Castillo MD Creatinine [Mass/Vol] 0.80 mg/dL Normal 0.70-1.20 [facility] Comment on above: Performed By: #### C DP, LAC, DIME, BMP, LIP, LIVP, TROPI #### [facility] [address] [place] [address] Vegetable Grader: Jonathan Castillo MD GFR, Amer >60 Normal >60 [facility] Comment on above: Performed By: #### C DP, LAC, DIME, BMP, LIP, LIVP, TROPI #### [facility] [address] [place] [address] Vegetable Grader: Jonathan Castillo MD GFR,non Amer >60 Normal >60 [facility] Comment on above: Performed By: #### C DP, LAC, DIME, BMP, LIP, LIVP, TROPI #### [facility] [address] [place] [address] Vegetable Grader: Jonathan Castillo MD Glucose [Mass/Vol] 91 mg/dL Normal 70-99 [facility] Comment on above: Performed By: #### C DP, LAC, DIME, BMP, LIP, LIVP, TROPI #### [facility] [address] [place] [id number] Vegetable Grader: Jonathan Castillo MD Potassium [Moles/Vol] 3.8 mmol/L Normal 3.7-5.3 [facility] Comment on above: Performed By: #### C DP, LAC, DIME, BMP, LIP, LIVP, TROPI #### [facility] [address] [place] [address] Vegetable Grader: Jonathan Castillo MD Sodium [Moles/Vol] 136 mmol/L Normal 135-144 [facility] Comment on above: Performed By: #### C DP, LAC, DIME, BMP, LIP, LIVP, TROPI #### [facility] [address] [place] [address] Vegetable Grader: Jonathan Castillo MD Urea nitrogen [Mass/Vol] 13 mg/dL Normal -20 [facility] Comment on above: Performed By: #### C DP, LAC, DIME, BMP, LIP, LIVP, TROPI #### [facility] [address] [place] [address] Vegetable Grader: Jonathan Castillo MD BUN/CRE Ratio NOT REPORTED Normal -20 [facility] Comment on above: Performed By: #### C DP, LAC, DIME, BMP, LIP, LIVP, TROPI #### [facility] [address] [place] [id number] Vegetable Grader: Jonathan Castillo MD Staging: NOT REPORTED Normal [facility] Comment on above: Performed By: #### C DP, LAC, DIME, BMP, LIP, LIVP, TROPI #### [facility] [address] [place] [address] Vegetable Grader: Jonathan Castillo MD CBC Auto Differentialon Basophils (Bld) [#/Vol] 0.20 10*3/uL [place] Basophils/100 WBC (Bld) 1 % 0 - 2 % [place] Differential Type NOT REPORTED [place] Eosinophils (Bld) [#/Vol] 0.20 10*3/uL [place] Eosinophils/100 WBC (Bld) 1 % 1 - 4 % [place] Erythrocyte distribution width (RBC) [Ratio] 13.5 % 12.5 - 15.4 % [place] Hematocrit (Bld) [Volume fraction] 49.6 % 41 - 53 % [place] Hemoglobin (Bld) [Mass/Vol] 16.5 g/dL 13.5 - 17.5 g/dL [place] Interpretation and review of laboratory results Abnormal [place] Lymphocytes (Bld) [#/Vol] 3.30 10*3/uL [place] Lymphocytes/100 WBC (Bld) 25 % 24 - 44 % [place] MCH (RBC) [Entitic mass] 30.0 pg 26 - 34 pg [place] MCHC (RBC) [Mass/Vol] 33.3 g/dL 31 - 37 g/dL [place] MCV (RBC) [Entitic vol] 90.3 fL 80 - 100 fL [place] Monocytes (Bld) [#/Vol] 1.00 10*3/uL [place] Monocytes/100 WBC (Bld) 8 % 2 - 11 % [place] Platelet mean volume (Bld) [Entitic vol] 7.6 fL 6 - 12 fL [place] Platelets (Bld) [#/Vol] NOT REPORTED [place] Platelets (Bld) [#/Vol] 281 10*3/uL [place] RBC (Bld) [#/Vol] 5.50 10*6/uL 4.5 - 5.9 m/uL [place] RBC morphology finding Nom (Bld) NOT REPORTED [place] Segmented neutrophils/100 WBC (Bld) 65 % 36 - 66 % [place] Segs Absolute 8.70 High [place] WBC (Bld) [#/Vol] 13.3 10*3/uL [place] WBC (Bld) [#/Vol] NOT REPORTED per 100 WBC [place] WBC Morphology NOT REPORTED [place] CBC with Diffon 06-26-2020 Abs. Basophil 0.20 k/uL Normal 0.0-0.2 [facility] Comment on above: Performed By: #### C DP, LAC, DIME, BMP, LIP, LIVP, TROPI #### [facility] [address] [place] [address] Vegetable Grader: Jonathan Castillo MD Abs.Neutrophil (Seg) 8.70 k/uL High 1.8-7.7 [facility] Comment on above: Performed By: #### C DP, LAC, DIME, BMP, LIP, LIVP, TROPI #### [facility] [address] [place] [address] Vegetable Grader: Jonathan Castillo MD Basophils/100 WBC (Bld) 1 % Normal 0-2 [facility] Comment on above: Performed By: #### C DP, LAC, DIME, BMP, LIP, LIVP, TROPI #### [facility] [address] [place] [address] Vegetable Grader: Jonathan Castillo MD Eosinophils (Bld) [#/Vol] 0.20 10*3/uL Normal 0.0-0.4 [facility] Comment on above: Performed By: #### C DP, LAC, DIME, BMP, LIP, LIVP, TROPI #### [facility] [address] [place] [address] Vegetable Grader: Jonathan Castillo MD Eosinophils/100 WBC (Bld) 1 % Normal 1-4 [facility] Comment on above: Performed By: #### C DP, LAC, DIME, BMP, LIP, LIVP, TROPI #### [facility] [address] [place] [address] Vegetable Grader: Jonathan Castillo MD Erythrocyte distribution width (RBC) [Ratio] 13.5 % Normal 12.5-15.4 [facility] Comment on above: Performed By: #### C DP, LAC, DIME, BMP, LIP, LIVP, TROPI #### [facility] [address] [place] [address] Vegetable Grader: Jonathan Castillo MD Hematocrit (Bld) [Volume fraction] 49.6 % Normal 41-53 [facility] Comment on above: Performed By: #### C DP, LAC, DIME, BMP, LIP, LIVP, TROPI #### [facility] [address] [place] [address] Vegetable Grader: Jonathan Castillo MD Hemoglobin (Bld) [Mass/Vol] 16.5 g/dL Normal 13.5-17.5 [facility] Comment on above: Performed By: #### C DP, LAC, DIME, BMP, LIP, LIVP, TROPI #### [facility] [address] [place] [address] Vegetable Grader: Jonathan Castillo MD Lymphocytes (Bld) [#/Vol] 3.30 10*3/uL Normal 1.0-4.8 [facility] Comment on above: Performed By: #### C DP, LAC, DIME, BMP, LIP, LIVP, TROPI #### [facility] [address] [place] [address] Vegetable Grader: Jonathan Castillo MD Lymphocytes/100 WBC (Bld) 25 % Normal 24-44 [facility] Comment on above: Performed By: #### C DP, LAC, DIME, BMP, LIP, LIVP, TROPI #### [facility] [address] [place] [address] Vegetable Grader: Jonathan Castillo MD MCH (RBC) [Entitic mass] 30.0 pg Normal 26-34 [facility] Comment on above: Performed By: #### C DP, LAC, DIME, BMP, LIP, LIVP, TROPI #### [facility] [address] [place] [address] Vegetable Grader: Jonathan Castillo MD MCHC (RBC) [Mass/Vol] 33.3 g/dL Normal 31-37 [facility] Comment on above: Performed By: #### C DP, LAC, DIME, BMP, LIP, LIVP, TROPI #### [facility] [address] [place] [address] Vegetable Grader: Jonathan Castillo MD MCV (RBC) [Entitic vol] 90.3 fL Normal 80-100 [facility] Comment on above: Performed By: #### C DP, LAC, DIME, BMP, LIP, LIVP, TROPI #### [facility] [address] [place] [address] Vegetable Grader: Jonathan Castillo MD Monocytes (Bld) [#/Vol] 1.00 10*3/uL Normal 0.1-1.2 [facility] Comment on above: Performed By: #### C DP, LAC, DIME, BMP, LIP, LIVP, TROPI #### [facility] [address] [place] [address] Vegetable Grader: Jonathan Castillo MD Monocytes/100 WBC (Bld) 8 % Normal 2-11 [facility] Comment on above: Performed By: #### C DP, LAC, DIME, BMP, LIP, LIVP, TROPI #### [facility] [address] [place] [address] Vegetable Grader: Jonathan Castillo MD Neutrophil (Seg) 65 % Normal 36-66 [facility] Comment on above: Performed By: #### C DP, LAC, DIME, BMP, LIP, LIVP, TROPI #### [facility] [address] [place] [address] Vegetable Grader: Jonathan Castillo MD Platelet mean volume (Bld) [Entitic vol] 7.6 fL Normal 6.0-12.0 [facility] Comment on above: Performed By: #### C DP, LAC, DIME, BMP, LIP, LIVP, TROPI #### [facility] [address] [place] [address] Vegetable Grader: Jonathan Castillo MD Platelets (Bld) [#/Vol] 281 10*3/uL Normal 140-450 [facility] Comment on above: Performed By: #### C DP, LAC, DIME, BMP, LIP, LIVP, TROPI #### [facility] [address] [place] [id number] Vegetable Grader: Jonathan Castillo MD RBC (Bld) [#/Vol] 5.50 10*6/uL Normal 4.5-5.9 [facility] Comment on above: Performed By: #### C DP, LAC, DIME, BMP, LIP, LIVP, TROPI #### [facility] [address] [place] [id number] Vegetable Grader: Jonathan Castillo MD WBC (Bld) [#/Vol] 13.3 10*3/uL High 3.5-11.0 [facility] Comment on above: Performed By: #### C DP, LAC, DIME, BMP, LIP, LIVP, TROPI #### [facility] [address] [place] [address] Vegetable Grader: Jonathan Castillo MD Abs.Imm.Granulocyte NOT REPORTED Normal 0.00-0.30 [facility] Comment on above: Performed By: #### C DP, LAC, DIME, BMP, LIP, LIVP, TROPI #### [facility] [address] [place] [address] Vegetable Grader: Jonathan Castillo MD Auto Diff Performed NOT REPORTED Normal [facility] Comment on above: Performed By: #### C DP, LAC, DIME, BMP, LIP, LIVP, TROPI #### [facility] [address] [place] [address] Vegetable Grader: Jonathan Castillo MD Immature granulocytes (Bld) [#/Vol] NOT REPORTED Normal 0 [facility] Comment on above: Performed By: #### C DP, LAC, DIME, BMP, LIP, LIVP, TROPI #### [facility] [address] [place] [address] Vegetable Grader: Jonathan Castillo MD NRBC Automated NOT REPORTED Normal [facility] Comment on above: Performed By: #### C DP, LAC, DIME, BMP, LIP, LIVP, TROPI #### [facility] [address] [place] [address] Vegetable Grader: Jonathan Castillo MD Platelets (Bld) [#/Vol] NOT REPORTED Normal [facility] Comment on above: Performed By: #### C DP, LAC, DIME, BMP, LIP, LIVP, TROPI #### [facility] [address] [place] [address] Vegetable Grader: Jonathan Castillo MD RBC morphology finding Nom (Bld) NOT REPORTED Normal [facility] Comment on above: Performed By: #### C DP, LAC, DIME, BMP, LIP, LIVP, TROPI #### [facility] [address] [place] [address] Vegetable Grader: Jonathan Castillo MD WBC Morphology NOT REPORTED Normal [facility] Comment on above: Performed By: #### C DP, LAC, DIME, BMP, LIP, LIVP, TROPI #### [facility] [address] [place] [address] Vegetable Grader: Jonathan Castillo MD CT ABDOMEN PELVIS WO CONTRAS Ton 06-26-2020 CT ABDOMEN PELVIS WO CONTRAST EXAMINATION: CT OF THE ABDOMEN AND PELVIS WITHOUT CONTRAST 06/26/2020 6:13 pm TECHNIQUE: CT of the abdomen and pelvis was performed without the administration of intravenous contrast. Multiplanar reformatted images are provided for review. Dose modulation, iterative reconstruction, and/or weight based adjustment of the mA/kV was utilized to reduce the radiation dose to as low as reasonably achievable. COMPARISON: None. HISTORY: ORDERING SYSTEM PROVIDED HISTORY: Abdominal Pain TECHNOLOGIST PROVIDED HISTORY: WITHOUT Contrast Abdominal Pain Reason for Exam: Pt c/o bilateral flank pain x2 days. No trauma. Hx of kidney stones. UA today show mucus. Acuity: Acute Type of Exam: Initial FINDINGS: Lower Chest: The lung bases are clear. Organs: The liver, spleen, gallbladder, pancreas, and adrenal glands appear normal. Bilateral non-obstructing intrarenal calculi are present, largest measuring 2 to 3 mm. No hydronephrosis is present. Ureters are nondilated. GI/Bowel: Stomach appears grossly normal. Small bowel appears normal, without evidence of obstruction. The appendix is normal. Sigmoid diverticulosis is present without evidence of diverticulitis. Pelvis: Urinary bladder is nondistended. Prostate gland is normal in size. Peritoneum/Retroperitoneum : No free fluid or free air is present within the abdomen or pelvis. No aneurysm formation is present. No pathological adenopathy is noted. Bones/Soft Tissues: No acute osseous abnormality is present. IMPRESSION: 1. Nonobstructing bilateral intrarenal calculi, largest measuring 2-3 mm Interpreted by: Wiley Hodges DO Signed by: Wiley Hodges DO 06/26/20 Final result Normal [facility] [place], [facility] Incoming R [employer]iant Results From [employer] - 06/26/2020 7:32 PM EDT EXAMINATION: CT OF THE ABDOMEN AND PELVIS WITHOUT CONTRAST 06/26/2020 6:13 pm TECHNIQUE: CT of the abdomen and pelvis was performed without the administration of intravenous contrast. Multiplanar reformatted images are provided for review. Dose modulation, iterative reconstruction, and/or weight based adjustment of the mA/kV was utilized to reduce the radiation dose to as low as reasonably achievable. COMPARISON: None. HISTORY: ORDERING SYSTEM PROVIDED HISTORY: Abdominal Pain TECHNOLOGIST PROVIDED HISTORY: WITHOUT Contrast Abdominal Pain Reason for Exam: Pt c/o bilateral flank pain x2 days. No trauma. Hx of kidney stones. UA today show mucus. Acuity: Acute Type of Exam: Initial FINDINGS: Lower Chest: The lung bases are clear. Organs: The liver, spleen, gallbladder, pancreas, and adrenal glands appear normal. Bilateral non-obstructing intrarenal calculi are present, largest measuring 2 to 3 mm. No hydronephrosis is present. Ureters are nondilated. GI/Bowel: Stomach appears grossly normal. Small bowel appears normal, without evidence of obstruction. The appendix is normal. Sigmoid diverticulosis is present without evidence of diverticulitis. Pelvis: Urinary bladder is nondistended. Prostate gland is normal in size. Peritoneum/Retroperitoneum : No free fluid or free air is present within the abdomen or pelvis. No aneurysm formation is present. No pathological adenopathy is noted. Bones/Soft Tissues: No acute osseous abnormality is present. IMPRESSION: 1. Nonobstructing bilateral intrarenal calculi, largest measuring 2-[address] [facility] [place], [place] 1. Nonobstructing bilateral intrarenal calculi, largest measuring 2-3 mm [facility], [place] EXAMINATION: CT OF T HE ABDOMEN AND PELVIS WITHOUT CONTRAST 06/26/2020 6:13 pm TECHNIQUE: CT of the abdomen and pelvis was performed without the administration of intravenous contrast. Multiplanar reformatted images are provided for review. Dose modulation, iterative reconstruction, and/or weight based adjustment of the mA/kV was utilized to reduce the radiation dose to as low as reasonably achievable. COMPARISON: None. HISTORY: ORDERING SYSTEM PROVIDED HISTORY: Abdominal Pain TECHNOLOGIST PROVIDED HISTORY: WITHOUT Contrast Abdominal Pain Reason for Exam: Pt c/o bilateral flank pain x2 days. No trauma. Hx of kidney stones. UA today show mucus. Acuity: Acute Type of Exam: Initial FINDINGS: Lower Chest: The lung bases are clear. Organs: The liver, spleen, gallbladder, pancreas, and adrenal glands appear normal. Bilateral non-obstructing intrarenal calculi are present, largest measuring 2 to 3 mm. No hydronephrosis is present. Ureters are nondilated. GI/Bowel: Stomach appears grossly normal. Small bowel appears normal, without evidence of obstruction. The appendix is normal. Sigmoid diverticulosis is present without evidence of diverticulitis. Pelvis: Urinary bladder is nondistended. Prostate gland is normal in size. Peritoneum/Retroperitoneum : No free fluid or free air is present within the abdomen or pelvis. No aneurysm formation is present. No pathological adenopathy is noted. Bones/Soft Tissues: No acute osseous abnormality is present. [place] D-Dimer Teston 06-26-2020 D-Dimer Test <0.19 Normal [facility] Comment on above: Result Comment: When combined with a low clinical probability, a D dimer value of <0.50 mg/L FEU is considered negative for DVT and PE (negative predictive value of 98%, sensitivity of 97%). If this test is not being used to help rule out DVT and PE, then the following reference range should be utilized: 0.00 - 1.02 mg/L FEU. The [employer] D-Dimer assay is intended for use as an aid in the diagnosis of venous thromboembolism (DVT and PE) and the results should be interpreted in conjunction with the patient's medical history, clinical presentation, and other findings. Elevated levels of D-dimer activity can be seen in any state of coagulation activation and is not recommended in patients with therapeutic dose anticoagulant therapy for >24 hours, fibrinolytic therapy within the previous 7 days, trauma or surgery within the previous 4 weeks, disseminated malignancies, aortic aneurysm, sepsis, severe infections, pneumonia, severe skin infections, liver cirrhosis, advanced age, coronary disease, diabetes, and . A very low percentage of patients with DVT may yield D-dimer results below the cutoff of 0.5 mg/L FEU. This is known to be more prevalent in patients with distal DVT. Performed By: #### C DP, LAC, DIME, BMP, LIP, LIVP, TROPI #### [facility] [address] [place] [address] Vegetable Grader: Jonathan Castillo MD D-Dimer, Quantitativeon D-Dimer, Quant <0.19 mg/L FEU [place], [place] Comment on above: When combined with a low clinical probability, a D dimer value of <0.50 mg/L FEU is considered negative for DVT and PE (negative predictive value of 98%, sensitivity of 97%). If this test is not being used to help rule out DVT and PE, then the following reference range should be utilized: 0.00 - 1.02 mg/L FEU. The [employer] D-Dimer assay is intended for use as an aid in the diagnosis of venous thromboembolism (DVT and PE) and the results should be interpreted in conjunction with the patient's medical history, clinical presentation, and other findings. Elevated levels of D-dimer activity can be seen in any state of coagulation activation and is not recommended in patients with therapeutic dose anticoagulant therapy for >24 hours, fibrinolytic therapy within the previous 7 days, trauma or surgery within the previous 4 weeks, disseminated malignancies, aortic aneurysm, sepsis, severe infections, pneumonia, severe skin infections, liver cirrhosis, advanced age, coronary disease, diabetes, and . A very low percentage of patients with DVT may yield D-dimer results below the cutoff of 0.5 mg/L FEU. This is known to be more prevalent in patients with distal DVT. Hepatic Function Panelon Albumin [Mass/Vol] 4.5 g/dL 3.5 - 5.2 g/dL [place] Albumin/Globulin [Mass ratio] 1.6 {ratio} [place] ALP [Catalytic activity/Vol] 62 U/L 40 - 129 U/L [place] ALT [Catalytic activity/Vol] 44 U/L High 5 - 41 U/L [place] AST [Catalytic activity/Vol] 28 U/L <40 [place] Bilirubin Ql (U) 0.80 mg/dL 0.3 - 1.2 mg/dL [place] Bilirubin, Indirect 0.61 mg/dL 0 - 1 mg/dL [place] Bilirubin.direct [Mass/Vol] 0.19 mg/dL <0.31 [place] Globulin (S) [Mass/Vol] NOT REPORTED 1.5 - 3.8 g/dL [place] Interpretation and review of laboratory results Abnormal [place] Protein [Mass/Vol] 7.4 g/dL 6.4 - 8.3 g/dL [place] Lactic Acidon 06-26-2020 Lactate [Moles/Vol] 1.0 mmol/L Normal 0.5-2.2 [facility] Comment on above: Performed By: #### C DP, LAC, DIME, BMP, LIP, LIVP, TROPI #### [facility] [address] [place], [place] [id number] Vegetable Grader: Jonathan Castillo MD Lactate [Moles/Vol] 1 mmol/L 0.5 - 2. 2 mmol/L [place] Lipaseon 06-26-2020 Lipase [Catalytic activity/Vol] 39 U/L Normal 13-60 [facility] Comment on above: Performed By: #### C DP, LAC, DIME, BMP, LIP, LIVP, TROPI #### [facility] [address] [place], [place] [id number] Vegetable Grader: Jonathan Castillo MD Lipase [Catalytic activity/Vol] 39 U/L 13 - 60 U/L [place] Liver Profileon 06-26-2020 Albumin [Mass/Vol] 4.5 g/dL Normal 3.5-5.2 [facility] Comment on above: Performed By: #### C DP, LAC, DIME, BMP, LIP, LIVP, TROPI #### [facility] [address] [place] [address] Vegetable Grader: Jonathan Castillo MD Albumin/Globulin [Mass ratio] 1.6 {ratio} Normal 1.0-2.5 [facility] Comment on above: Performed By: #### C DP, LAC, DIME, BMP, LIP, LIVP, TROPI #### [facility] [address] [place] [address] Vegetable Grader: Jonathan Castillo MD Alkaline Phos 62 U/L Normal 40-129 [facility] Comment on above: Performed By: #### C DP, LAC, DIME, BMP, LIP, LIVP, TROPI #### [facility] [address] [place] [address] Vegetable Grader: Jonathan Castillo MD ALT [Catalytic activity/Vol] 44 U/L High 5-41 [facility] Comment on above: Performed By: #### C DP, LAC, DIME, BMP, LIP, LIVP, TROPI #### [facility] [address] [place] [address] Vegetable Grader: Jonathan Castillo MD AST [Catalytic activity/Vol] 28 U/L Normal <40 [facility] Comment on above: Performed By: #### C DP, LAC, DIME, BMP, LIP, LIVP, TROPI #### [facility] [address] [place] [address] Vegetable Grader: Jonathan Castillo MD Bilirubin Ql (U) 0.80 mg/dL Normal 0.3-1.2 [facility] Comment on above: Performed By: #### C DP, LAC, DIME, BMP, LIP, LIVP, TROPI #### [facility] [address] [place] [address] Vegetable Grader: Jonathan Castillo MD Bilirubin, Indirect 0.61 mg/dL Normal 0.00-1.00 [facility] Comment on above: Performed By: #### C DP, LAC, DIME, BMP, LIP, LIVP, TROPI #### [facility] [address] [place] [id number] Vegetable Grader: Jonathan Castillo MD Bilirubin.direct [Mass/Vol] 0.19 mg/dL Normal <0.31 [facility] Comment on above: Performed By: #### C DP, LAC, DIME, BMP, LIP, LIVP, TROPI #### [facility] [address] [place] [address] Vegetable Grader: Jonathan Castillo MD Protein [Mass/Vol] 7.4 g/dL Normal 6.4-8.3 [facility] Comment on above: Performed By: #### C DP, LAC, DIME, BMP, LIP, LIVP, TROPI #### [facility] [address] [place] [address] Vegetable Grader: Jonathan Castillo MD Globulin (S) [Mass/Vol] NOT REPORTED Normal 1.5-3.8 [facility] Comment on above: Performed By: #### C DP, LAC, DIME, BMP, LIP, LIVP, TROPI #### [facility] [address] [place] [address] Vegetable Grader: Jonathan Castillo MD Microscopic Urinalysison Amorphous, UA NOT REPORTED None [facility], [place] Bacteria, UA None None [facility] Casts UA NOT REPORTED [facility] Crystals, UA NOT REPORTED None /HPF [facility], [place] Epithelial Cells UA 10 TO 20 [place], [place] Interpretation and review of laboratory results Abnormal [facility], [place] Mucus, UA 2+ Abnormal None [facility], [place] Other Observations UA Utilizing a urinal ysis as the only screening method to exclude a potential uropathogen can be unreliable in many patient populations. Rapid screening tests are less sensitive than culture and if UTI is a clinical possibility, culture should be considered despite a negative urinalysis. Abnormal NOT REQ. [place] RBC (U) [#/Vol] 0 TO 2 [place] Renal Epithelial, UA NOT REPORTED 0 /HPF Me [place], [place] Trichomonas, UA NOT REPORTED None [place] WBC, UA 2 TO 5 [place] Yeast, UA NOT REPORTED None [place] Otheron 06-26-2020 Immature granulocytes (Bld) [#/Vol] NOT REPORTED 0 % [place] Troponinon 06-26-2020 Troponin I.cardiac [Mass/Vol] 7 ng/L Normal 0-22 [facility] Comment on above: Result Comment: High Sensitivity Troponin values cannot be compared with other Troponin methodologies. Patients with high levels of Biotin oral intake (i.e >5mg/day) may have falsely decreased Troponin levels. Samples collected within 8 hours of biotin intake may require additional information for diagnosis. Performed By: #### C DP, LAC, DIME, BMP, LIP, LIVP, TROPI #### [facility] [address] [place], [place] [id number] Vegetable Grader: Jonathan Castillo MD Troponin I.cardiac [Mass/Vol] NOT REPORTED Normal [facility] Comment on above: Performed By: #### C DP, LAC, DIME, BMP, LIP, LIVP, TROPI #### [facility] [address] [place], [place] [id number] Vegetable Grader: Jonathan Castillo MD Troponin I.cardiac [Mass/Vol] NOT REPORTED [place] Troponin T.cardiac [Mass/Vol] NOT REPORTED <0.03 ng/mL [place] Troponin, High Sensitivity 7 ng/L 0 - 22 ng/L [place] Comment on above: High Sensitivity Troponin values cannot be compared with other Troponin methodologies. Patients with high levels of Biotin oral intake (i.e >5mg/day) may have falsely decreased Troponin levels. Samples collected within 8 hours of biotin intake may require additional information for diagnosis. UA w/Reflex Cultureon 2019 Acetoacetic Acid,Ur Negative Normal NEG [facility] Comment on above: Performed By: #### U AX, UMICAO #### [facility] [address] [place] [address] Vegetable Grader: Jonathan Castillo MD Bilirubin, SemiQt,Ur Negative Abnormal NEG [facility] Comment on above: Performed By: #### U AX, UMICAO #### [facility] [address] [place] [address] Vegetable Grader: Jonathan Castillo MD Color (U) YELLOW Normal YEL [facility] Comment on above: Performed By: #### U AX, UMICAO #### [facility] [address] [place] [address] Vegetable Grader: Jonathan Castillo MD Glucose Ql (U) Negative Normal NEG [facility] Comment on above: Performed By: #### U AX, UMICAO #### [facility] [address] [place] [address] Vegetable Grader: Jonathan Castillo MD Hemoglobin, Ur Negative Normal NEG [facility] Comment on above: Performed By: #### U AX, UMICAO #### [facility] [address] [place] [address] Vegetable Grader: Jonathan Castillo MD Leukocyte esterase Test strip Ql (U) Negative Normal NEG [facility] Comment on above: Performed By: #### U AX, UMICAO #### [facility] [address] [place] [address] Vegetable Grader: Jonathan Castillo MD Nitrite,Ur Negative Normal NEG [facility] Comment on above: Performed By: #### U AX, UMICAO #### [facility] [address] [place] [address] Vegetable Grader: Jonathan Castillo MD pH (U) 5.5 [pH] Normal 5.0-8.0 [facility] Comment on above: Performed By: #### U AX, UMICAO #### [facility] [address] [place] [address] Vegetable Grader: Jonathan Castillo MD Protein Ql (U) Negative Normal NEG [facility] Comment on above: Performed By: #### U AX, UMICAO #### [facility] [address] [place] [address] Vegetable Grader: Jonathan Castillo MD Specific gravity (U) [Rel density] 1.026 Normal 1.005-1.030 [facility] Comment on above: Performed By: #### U AX, UMICAO #### [facility] [address] [place] [address] Vegetable Grader: Jonathan Castillo MD Turbidity CLEAR Normal CLEAR [facility] Comment on above: Performed By: #### U AX, UMICAO #### [facility] [address] [place] [address] Vegetable Grader: Jonathan Castillo MD Urobilinogen,Ur Normal Normal NORM [facility] Comment on above: Performed By: #### U AX, UMICAO #### [facility] [address] [place] [address] Vegetable Grader: Jonathan Castillo MD Comment NOT REPORTED Normal [facility] Comment on above: Performed By: #### U AX, UMICAO #### [facility] [address] [place] [address] Vegetable Grader: Jonathan Castillo MD Urinalysis Reflex to Culture on 06-26-2020 Bilirubin Urine Negative Abnormal NEGATIVE [place] Color, UA YELLOW YELLOW [place] Glucose, Ur Negative NEGATIVE [place] Interpretation and review of laboratory results Abnormal [place] Ketones Ql (U) Negative NEGATIVE [place] Leukocyte esterase Test strip Ql (U) Negative NEGATIVE [place] Nitrite, Urine Negative NEGATIVE [place] pH, UA 5.5 [place] Protein (U) [Mass/Vol] Negative NEGATIVE [place] Specific [facility], UA 1.026 [place], [place] Turbidity UA CLEAR CLEAR [place] Urinalysis Comments NOT REPORTED [place], [place] Urine Hgb Negative NEGATIVE [place] Urobilinogen, Urine Normal Normal [place] Urinalysis,Microon 0 ----- Normal [facility] Comment on above: Performed By: #### U AX, UMICAO #### [facility] [address] [place] [address] Vegetable Grader: Jonathan Castillo MD Bacteria LM.HPF (Urine sed) [#/Area] None Normal [facility] Comment on above: Performed By: #### U AX, UMICAO #### [facility] [address] [place] [address] Vegetable Grader: Jonathan Castillo MD Epithelial cells LM.HPF (Urine sed) [#/Area] 10 TO 20 Normal 0-5 [facility] Comment on above: Performed By: #### U AX, UMICAO #### [facility] [address] [place] [address] Vegetable Grader: Jonathan Castillo MD Mucus Strands 2+ Abnormal [facility] Comment on above: Performed By: #### U AX, UMICAO #### [facility] [address] [place] [address] Vegetable Grader: Jonathan Castillo MD Other Observations Utilizing a urinalys is as the only screening method to exclude a potential Abnormal NREQ [facility] Comment on above: Result Comment: urop athogen can be unreliable in many patient populations. Rapid screening tests are less sensitive than culture and if UTI is a clinical possibility, culture should be considered despite a negative urinalysis. Performed By: #### U AX UMDOTO #### [facility] [address] [place] [address] Vegetable Grader: Jonathan Castillo MD RBC (U) [#/Vol] 0 TO 2 Normal 0-2 [facility] Comment on above: Performed By: #### U AX, UMICAO #### [facility] [address] [place] [address] Vegetable Grader: Jonathan Castillo MD WBC (U) [#/Vol] 2 TO 5 Normal 0-5 [facility] Comment on above: Performed By: #### U AX, UMICAO #### [facility] [address] [place] [address] Vegetable Grader: Jonathan Castillo MD Amorphous sediment LM Ql (Urine sed) NOT REPORTED Normal [facility] Comment on above: Performed By: #### U AX, UMICAO #### [facility] [address] [place] [address] Vegetable Grader: Jonathan Castillo MD Casts LM.LPF (Urine sed) [#/Area] NOT REPORTED Normal 0-2 [facility] Comment on above: Performed By: #### U AX, UMICAO #### [facility] [address] [place] [address] Vegetable Grader: Jonathan Castillo MD Crystals LM Nom (Urine sed) NOT REPORTED Normal [facility] Comment on above: Performed By: #### U AX, UMICAO #### [facility] [address] [place] [address] Vegetable Grader: Jonathan Castillo MD Epithelial, Renal NOT REPORTED Normal 0 [facility] Comment on above: Performed By: #### U AX, UMICAO #### [facility] [address] [place] [address] Vegetable Grader: Jonathan Castillo MD Trichomonas NOT REPORTED Normal NONE [facility] Comment on above: Performed By: #### U AX, UMICAO #### [facility] [address] [place] [address] Vegetable Grader: Jonathan Castillo MD Yeast LM Ql (Urine sed) NOT REPORTED Normal NONE [facility] Comment on above: Performed By: #### U AX, UMICAO #### [facility] [address] [place] [address] Vegetable Grader: Jonathan Castillo MD Vital Signs Date Time Vital Sign Value Performing Clinician Kaii jennifer 11-21-2024 16:35-0500 Diastolic blood pressure 64 mm[Hg] Skip Ashraf MD Work Phone: [facility] 11-21-2024 16:35-0500 Heart rate 70 /min Skip Ashraf MD Work Phone: [facility] 11-21-2024 16:35-0500 Systolic blood pressure 140 mm[Hg] Skip Ashraf MD Work Phone: [facility] 11-21-2024 16:26-0500 Body temperature 97.9 [degF] Skip Ashraf MD Work Phone: [facility] 11-21-2024 16:26-0500 Respiratory rate 16 /min Skip Ashraf MD Work Phone: [facility] 11-21-2024 16:26-0500 SaO2% (BldA) [Mass fraction] 100 % Skip Ashraf MD Work Phone: [facility] 11-21-2024 12:25-0500 Body height 180.3 cm Skip Ashraf MD Work Phone: [facility] 11-21-2024 12:25-0500 Body mass index (BMI) [Ratio] 37.66 kg/m2 Skip Ashraf MD Work Phone: [facility] 11-21-2024 12:25-0500 Body weight 122.47 kg Skip Ashraf MD Work Phone: [facility] 09-19-2024 00:44-0500 Body height 180.3 cm Kiran Ortiz MD [facility] 09-19-2024 00:44-0500 Body mass index (BMI) [Ratio] 39.05 kg/m2 Kiran Ortiz MD Work Phone: [facility] 09-19-2024 00:44-0500 Body temperature 98.1 [degF] Kiran Ortiz MD Work Phone: [facility] 09-19-2024 00:44-0500 Body weight 127.01 kg Kiran Ortiz MD Work Phone: [facility] 09-19-2024 00:44-0500 Diastolic blood pressure 81 mm[Hg] Kiran Ortiz MD Work Phone: [facility] 09-19-2024 00:44-0500 Heart rate 65 /min Kiran Ortiz MD Work Phone: [facility] 09-19-2024 00:44-0500 Respiratory rate 16 /min Kiran Ortiz MD Work Phone: [facility] 09-19-2024 00:44-0500 SaO2% (BldA) [Mass fraction] 98 % Kiran Ortiz MD Work Phone: [facility] 09-19-2024 00:44-0500 Systolic blood pressure 110 mm[Hg] Kiran Ortiz MD [facility] 09-17-2024 13:44-0500 Body height 180.3 cm Mai Schuster MD [facility] 09-17-2024 13:44-0500 Body mass index (BMI) [Ratio] 39.05 kg/m2 Mai Schuster MD Work Phone: [facility] 09-17-2024 13:44-0500 Body temperature 97.7 [degF] Mai Schuster MD Work Phone: [facility] 09-17-2024 13:44-0500 Body weight 127.01 kg Mai Schuster MD Work Phone: [facility] 09-17-2024 13:44-0500 Diastolic blood pressure 73 mm[Hg] Mai Schuster MD Work Phone: [facility] 09-17-2024 13:44-0500 Heart rate 60 /min Mai Schuster MD Work Phone: [facility] 09-17-2024 13:44-0500 Respiratory rate 14 /min Mai Schuster MD Work Phone: [facility] 09-17-2024 13:44-0500 SaO2% (BldA) [Mass fraction] 97 % Mai Schuster MD Work Phone: [facility] 09-17-2024 13:44-0500 Systolic blood pressure 112 mm[Hg] Mai Schuster MD Work Phone: [facility] 06-12-2024 08:19-0400 Body temperature 98.01 [degF] Joe Verduzco MD Work Phone: [facility] 06-12-2024 08:19-0400 Diastolic blood pressure 80 mm[Hg] Joe Verduzco MD Work Phone: [facility] 06-12-2024 08:19-0400 Heart rate 82 /min Joe Verduzco MD Work Phone: [facility] 06-12-2024 08:19-0400 Respiratory rate 16 /min Joe Verduzco MD Work Phone: [facility] 06-12-2024 08:19-0400 SaO2% (BldA) [Mass fraction] 97 % Joe Verduzco MD Work Phone: [facility] 06-12-2024 08:19-0400 Systolic blood pressure 119 mm[Hg] Joe Verduzco MD Work Phone: [facility] 06-09-2024 00:25-0400 Body height 180.4 cm Joe Verduzco MD Work Phone: [facility] 06-09-2024 00:25-0400 Body mass index (BMI) [Ratio] 39.03 kg/m2 Joe Verduzco MD Work Phone: [facility] 06-09-2024 00:25-0400 Body weight 127.01 kg Joe Verduzco MD Work Phone: [facility] 05-04-2024 09:26-0400 Diastolic blood pressure 93 mm[Hg] DO Parish Hay Work Phone: [facility] 05-04-2024 09:26-0400 Heart rate 88 /min DO Parish Hay Work Phone: [facility] 05-04-2024 09:26-0400 Respiratory rate 20 /min DO Parish Hay Work Phone: [facility] 05-04-2024 09:26-0400 SaO2% (BldA) [Mass fraction] 97 % DO Parish Hay Work Phone: [facility] 05-04-2024 09:26-0400 Systolic blood pressure 135 mm[Hg] DO Parish Hay Work Phone: [facility] 05-03-2024 21:18-0400 Body height 180.34 cm DO Parish Hay Work Phone: [facility] 05-03-2024 21:18-0400 Body weight 127 kg DO Parish Hay Work Phone: [facility] 05-02-2024 21:27-0400 Body height 180.3 cm Best Roper MD Work Phone: [facility] 05-02-2024 21:27-0400 Body mass index (BMI) [Ratio] 39.05 kg/m2 Best Roper MD Work Phone: [facility] 05-02-2024 21:27-0400 Body temperature 98.49 [degF] Best Roper MD Work Phone: [facility] 05-02-2024 21:27-0400 Body weight 127.01 kg Best Roper MD Work Phone: [facility] 05-02-2024 21:27-0400 Diastolic blood pressure 108 mm[Hg] Best Roper MD Work Phone: [facility] 05-02-2024 21:27-0400 Heart rate 97 /min Best Roper MD Work Phone: [facility] 05-02-2024 21:27-0400 Respiratory rate 20 /min Best Roper MD Work Phone: [facility] 05-02-2024 21:27-0400 SaO2% (BldA) [Mass fraction] 95 % Best Roper MD Work Phone: [facility] 05-02-2024 21:27-0400 Systolic blood pressure 124 mm[Hg] Best Roper MD Work Phone: [facility] 02-02-2023 17:57-0400 Body height 182.9 cm Mai Schuster MD Work Phone: [facility] 02-02-2023 17:57-0400 Body mass index (BMI) [Ratio] 34.72 kg/m2 Mai Schuster MD Work Phone: [facility] 02-02-2023 17:57-0400 Body temperature 98.1 [degF] Mai Schuster MD Work Phone: [facility] 02-02-2023 17:57-0400 Body weight 116.12 kg Mai Schuster MD Work Phone: [facility] 02-02-2023 17:57-0400 Heart rate 92 /min Mai Schuster MD Work Phone: [facility] 02-02-2023 17:57-0400 Respiratory rate 16 /min Mai Schuster MD Work Phone: [facility] 02-02-2023 17:57-0400 SaO2% (BldA) [Mass fraction] 97 % Mai Schuster MD Work Phone: [facility] 01-24-2023 22:12-0400 Diastolic blood pressure 72 mm[Hg] Paul Leroy MD Work Phone: [facility] 01-24-2023 22:12-0400 Heart rate 80 /min Paul Leroy MD Work Phone: [facility] 01-24-2023 22:12-0400 Respiratory rate 13 /min Paul Leroy MD Work Phone: [facility] 01-24-2023 22:12-0400 SaO2% (BldA) [Mass fraction] 94 % Paul Leroy MD Work Phone: [facility] 01-24-2023 22:12-0400 Systolic blood pressure 137 mm[Hg] Paul Leroy MD Work Phone: [facility] 01-24-2023 20:56-0400 Body temperature 97.81 [degF] Paul Leroy MD Work Phone: [facility] 01-24-2023 18:53-0400 Body height 182.9 cm Paul Leroy MD Work Phone: [facility] 01-24-2023 18:53-0400 Body mass index (BMI) [Ratio] 37.3 kg/m2 Paul Leroy MD Work Phone: [facility] 01-24-2023 18:53-0400 Body weight 124.74 kg Paul Leroy MD Work Phone: [facility] 01-20-2023 21:15-0400 Diastolic blood pressure 69 mm[Hg] Buffy Camarillo MD Work Phone: [facility] 01-20-2023 21:15-0400 Heart rate 72 /min Buffy Camarillo MD Work Phone: [facility] 01-20-2023 21:15-0400 Respiratory rate 15 /min Buffy Camarillo MD Work Phone: [facility] 01-20-2023 21:15-0400 SaO2% (BldA) [Mass fraction] 92 % Buffy Camarillo MD Work Phone: [facility] 01-20-2023 21:15-0400 Systolic blood pressure 110 mm[Hg] Buffy Camarillo MD Work Phone: [facility] 01-20-2023 16:53-0400 Body mass index (BMI) [Ratio] 39.46 kg/m2 Buffy Camarillo MD Work Phone: [facility] 01-20-2023 16:53-0400 Body temperature 97 [degF] Buffy Camarillo MD Work Phone: [facility] 01-20-2023 16:53-0400 Body weight 124.74 kg Buffy Camarillo MD Work Phone: [facility] 06-26-2020 21:02-0400 BP Diastolic 103 mm[Hg] [facility] 06-26-2020 21:02-0400 BP Systolic 141 mm[Hg] [facility] 06-26-2020 21:02-0400 Pulse (Heart Rate) 90 /min [facility], [place] 06-26-2020 21:02-0400 Pulse Oximetry 97 % [facility] 06-26-2020 21:02-0400 Respiratory Rate 16 /min [place] [facility] 06-26-2020 18:36-0400 BMI (Body Mass Index) 43.05 kg/m2 [facility] 06-26-2020 18:36-0400 Body Temperature 98.4 [degF] [facility] 06-26-2020 18:36-0400 Body weight 136.08 kg [facility] 06-26-2020 18:36-0400 Height 177.8 cm [facility] 05-13-2020 10:38-0400 BMI (Body Mass Index) 44.63 kg/m2 [facility] 05-13-2020 10:38-0400 Body weight 137.08 kg [facility] [place] 05-13-2020 10:38-0400 Height 175.3 cm [facility] [place] 05-13-2020 10:37-0400 Body Temperature 98.2 [degF] [facility] [place] 05-13-2020 10:37-0400 BP Diastolic 83 mm[Hg] [facility] [place] 05-13-2020 10:37-0400 BP Systolic 144 mm[Hg] [facility] [place] 05-13-2020 10:37-0400 Pulse (Heart Rate) 84 /min [facility] [place] 05-13-2020 10:37-0400 Pulse Oximetry 97 % [facility] [place] 05-13-2020 10:37-0400 Respiratory Rate 14 /min [facility] [place] Encounters Encounter Date Encounter Type Care Provider Facility Start: 11-21-2024 End: 11-21-2024 Emergency department patient visit Skip Ashraf MD Work Phone: [facility] Emergency Department Comment on above: Suicidal ideation (P rimary Dx); Alcohol abuse Start: 10-31-2024 End: 10-31-2024 ambulatory [facility] Start: 10-30-2024 End: 11-03-2024 [facility] Start: 10-30-2024 End: 11-03-2024 Evaluation and management of inpatient [facility] Start: 09-19-2024 End: 09-19-2024 Emergency department patient visit Kiran Ortiz MD Work Phone: [facility] Comment on above: Bronchitis (Primary Dx) Start: 09-17-2024 End: 09-17-2024 Emergency department patient visit Mai Schuster MD Work Phone: [facility] Comment on above: Alcohol withdrawal s yndrome without complication (HCC) (Primary Dx); Primary insomnia Start: 09-13-2024 End: 09-14-2024 ambulatory Lselie Ng Facility:[facility] Start: 09-09-2024 End: 09-13-2024 [facility] Start: 09-08-2024 End: 09-12-2024 Evaluation and management of inpatient [facility] Start: 09-05-2024 End: 09-06-2024 Evaluation and management of inpatient [facility] Start: 08-31-2024 End: 09-04-2024 Evaluation and management of inpatient LEEANN COLLIER [facility] Start: 08-29-2024 End: 08-29-2024 Emergency department patient visit Wilberto Morton MD Facility:[facility] Start: 08-27-2024 End: 08-29-2024 Evaluation and management of inpatient Jonathan Stephenson APRN-CHANGE CONTROL MANAGER Facility:[facility] Start: 08-15-2024 End: 08-15-2024 Emergency department patient visit BUFFY CAMARILLO [facility] Start: 07-20-2024 End: 07-20-2024 Emergency department patient visit CAREY HERNANDEZ [facility] Start: 07-09-2024 End: 07-10-2024 Evaluation and management of [facility] Start: 07-04-2024 End: 07-04-2024 Emergency department patient visit PAUL LEROY [facility] Start: 06-22-2024 End: 06-28-2024 Evaluation and management of inpatient [facility] Start: 06-16-2024 ambulatory Jonathan Stephenson APRN-CHANGE CONTROL MANAGER Facility:[facility] Start: 06-14-2024 End: 06-14-2024 Emergency department patient visit Janelle Moreno MD Facility:[facility] Start: 06-08-2024 End: 06-12-2024 Evaluation and management of inpatient Joe Verduzco MD Work Phone: [facility] Adult [facility] 7E Comment on above: Suicide attempt (HCC ) (Primary Dx); Suicide attempt by benzodiazepine overdose (HCC); Antipsychotic overdose, intentional self-harm, initial encounter (HCC) Start: 06-07-2024 End: 06-08-2024 ambulatory [facility] Start: 06-04-2024 End: 06-07-2024 Evaluation and management of inpatient Davon Bernal MD Facility:[facility] Start: 06-04-2024 End: 06-04-2024 Emergency department patient visit Pebbles Ruiz DO Facility:[facility] Start: 05-30-2024 End: 06-02-2024 Evaluation and management of [facility] Start: 05-29-2024 ambulatory Jonathan Stephenson MIXING HOUSE OPERATOR-CHANGE CONTROL MANAGER Facility:[facility] Start: 05-04-2024 ambulatory Madhav Herman acility:[facility] Start: 05-03-2024 End: 05-04-2024 Emergency department patient visit DO Parish Satnam Work Phone: [facility] Work Phone: Start: 05-02-2024 End: 05-02-2024 Emergency department patient visit Best Roper MD Work Phone: [facility] Comment on above: Anxiety state (Prima ry Dx); Alcohol abuse Start: 04-06-2024 End: 04-09-2024 ambulatory Rivka Lantigua MIXING HOUSE OPERATOR-CHANGE CONTROL MANAGER Facility:[facility] Start: 03-27-2024 End: 03-27-2024 Emergency department patient visit Sarah Gaitan PA-C Facility:[facility] Start: 03-03-2024 End: 03-04-2024 Emergency department patient [facility] Start: 03-01-2024 End: 03-01-2024 Emergency department patient visit Janelle Moreno MD Facility:[facility] Start: 01-14-2024 End: 01-17-2024 Evaluation and management of inpatient Rivka Lantigua MIXING HOUSE OPERATOR-CHANGE CONTROL MANAGER Facility:[facility] Start: 01-07-2024 Encounter for genera l adult medical examination without abnormal findings LAURA WERNER [facility] Start: 01-07-2024 End: 01-12-2024 Evaluation and management of inpatient JONATHAN STEPHENSON [facility] Start: 01-06-2024 End: 01-06-2024 Emergency department patient visit Physician Michelle Queen [facility] Start: 01-05-2024 End: 01-05-2024 Emergency department patient visit Physician Michelle Queen [facility] Start: 01-01-2024 End: 01-05-2024 Evaluation and management of inpatient Samantha Rivera Facility:[facility] Start: 01-01-2024 End: 01-01-2024 Emergency department patient visit Tai Galvez MD Facility:[facility] Start: 12-26-2023 End: 12-26-2023 Emergency department patient visit PAUL LEROY [facility] Start: 12-07-2023 End: 12-11-2023 Evaluation and management of inpatient UNKNOWN UNKNOWN [facility] Start: 12-07-2023 Emergency department patient visit RODNEY FOSTER [facility] Start: 12-07-2023 End: 12-07-2023 Evaluation and management of inpatient SEVERIANO CHAUHAN [facility] Start: 11-24-2023 End: 11-27-2023 Evaluation and management of inpatient UNKNOWN UNKNOWN [facility] Start: 09-28-2023 End: 10-01-2023 Evaluation and management of inpatient UNKNOWN UNKNOWN [facility] Start: 02-02-2023 End: 02-02-2023 Emergency department patient visit Mai Schuster MD Work Phone: [facility] Comment on above: Depression with suic idal ideation (Primary Dx) Start: 01-24-2023 End: 01-24-2023 Emergency department patient visit Paul Leroy MD Work Phone: [facility] ED Comment on above: Suicidal ideation (P rimary Dx) Start: 01-20-2023 End: 01-20-2023 Emergency department patient visit Buffy Camarillo MD Work Phone: [facility] ED Comment on above: Suicidal ideation (P rimary Dx); Alcohol dependence with unspecified alcohol-induced disorder (HCC) Start: 10-15-2022 End: 10-15-2022 Subsequent hospital visit by physician [facility] Start: 06-26-2020 End: 06-26-2020 Emergency department patient visit ANNMARIE [facility] Start: 06-26-2020 End: 06-26-2020 [facility] Comment on above: Acute bilateral low back pain, unspecified whether sciatica present (Primary Dx) Start: 05-13-2020 End: 05-13-2020 Emergency department patient visit ANNMARIE [facility] Start: 05-13-2020 End: 05-13-2020 Emergency department patient visit Reginaldo Stevenson Work Phone: [facility] ED Comment on above: Abscess (Primary Dx) Procedures Date Procedure Procedure Detail Performing Clinician Start: 11-21-2024 Drug tst prsmv instr mnt chem analyzers pr date Steven Purvis DO Work Phone: Start: 11-21-2024 Comprehensive metabo lic panel Steven Purvis DO Work Phone: Start: 11-21-2024 TOX SCR, BLD, ED Akash Purvis DO Work Phone: Start: 09-19-2024 COVID-19 & INFLUENZA COMBO Kiran Ortiz MD Work Phone: Start: 09-17-2024 Anion gap [Moles/Vol] S domenico Schuster MD Work Phone: Start: 09-17-2024 Assay of ethanol Meghann Schuster MD Work Phone: Start: 09-17-2024 Comprehensive metabo lic panel Mai Schuster MD Work Phone: Start: 09-17-2024 GLOMERULAR FILTRATIO N RATE, ESTIMATED Mai Schuster MD Work Phone: Start: 09-17-2024 Ecg routine ecg w/le ast 12 lds w/i&r Mai Schuster MD Work Phone: Start: 06-08-2024 Ecg routine ecg w/le ast 12 lds i&r only Joe Verduzco MD Work Phone: Start: 06-08-2024 Anion gap [Moles/Vol] S matthew Verduzco MD Work Phone: Start: 06-08-2024 Assay of acetaminophen Joe Verduzco MD Work Phone: Start: 06-08-2024 Assay of ethanol Joe Verduzco MD Work Phone: Start: 06-08-2024 Assay of salicylate Ezequiel Verduzco MD Work Phone: Start: 06-08-2024 Basic metabolic 2000 panel - Serum or Plasma Joe Verduzco MD Work Phone: Start: 06-08-2024 Creatine kinase total S matthew Verduzco MD Work Phone: Start: 06-08-2024 GLOMERULAR FILTRATIO N RATE, ESTIMATED Joe Verduzco MD Work Phone: Start: 06-08-2024 End: 06-08-2024 Hepatic function panel Joe Verduzco MD Work Phone: Start: 06-08-2024 Urnls dip stick/tabl et rgnt auto w/o microscopy Joe Verduzco MD Work Phone: Start: 06-08-2024 Ecg routine ecg w/le ast 12 lds i&r only Joe Verduzco MD Work Phone: Start: 02-02-2023 SARS-CoV-2 (COVID-19 ) RdRp gene [Presence] in Respiratory specimen by BRITTANY with probe detection Mai Schuster MD Work Phone: Start: 02-02-2023 Ecg routine ecg w/le ast 12 lds w/i&r Mai Schuster MD Work Phone: Start: 02-02-2023 Anion gap [Moles/Vol] S domenico Schuster MD Work Phone: Start: 02-02-2023 Assay of ethanol Meghann Schuster MD Work Phone: Start: 02-02-2023 Comprehensive metabo lic panel Mai Schusetr MD Work Phone: Start: 02-02-2023 GLOMERULAR FILTRATIO N RATE, ESTIMATED Mai Schuster MD Work Phone: Start: 01-24-2023 Drug tst prsmv instr mnt chem analyzers pr date Jakob Gutierrez DO Work Phone: Start: 01-24-2023 COVID-19, RAPID Jakob Gutierrez DO Work Phone: Start: 01-24-2023 Assay of ethanol Latriciajosue Gutierrez DO Work Phone: Start: 01-24-2023 Comprehensive metabo lic panel Jakob Gutierrez DO Work Phone: Start: 01-20-2023 Drug tst prsmv instr mnt chem analyzers pr date Shi Peres DO Work Phone: Start: 01-20-2023 Comprehensive metabo lic panel Shi Coronado Larisa DO Work Phone: Start: 01-20-2023 TOX SCR, BLD, ED Shi Coronado Larisa DO Work Phone: Start: 06-26-2020 Ct abdomen & pelvis w/o contrast material [facility]NM[facility]IE [place] Start: 06-26-2020 Assay of lactate [facility]NMARIE [place] Start: 06-26-2020 Assay of lipase ANNMARIE PEARCE Start: 06-26-2020 Assay of troponin quantitative [facility] Start: 06-26-2020 Basic metabolic pane l calcium total [facility] Start: 06-26-2020 Blood count complete auto&auto difrntl wbc [facility] Start: 06-26-2020 Fibrin dgradj produc ts d-dimer quantitative [facility] Start: 06-26-2020 Hepatic function panel [facility] Start: 06-26-2020 Ecg routine ecg w/le ast 12 lds w/i&r ANNMARIE [place] Start: 06-26-2020 INSERT PERIPHERAL IV BERNIE BLEVINS Start: 06-26-2020 TELEMETRY MONITORING BERNIE CASTELLON [place] Start: 06-26-2020 Urinalysis microscop ic only ANNMARIE [place] Start: 06-26-2020 Urnls dip stick/tabl et rgnt auto w/o microscopy [facility]NMARIE [place] Start: 06-26-2020 Ct abdomen & pelvis w/o contrast material Ubaldo Small Start: 06-26-2020 Assay of lipase Yobany concha [facility] Start: 06-26-2020 Assay of troponin quantitative [facility] Start: 06-26-2020 Basic metabolic pane l calcium total [facility] Start: 06-26-2020 Blood count complete auto&auto difrntl wbc [facility] Start: 06-26-2020 Fibrin dgradj produc ts d-dimer quantitative [facility] Start: 06-26-2020 Hepatic function panel [facility] Start: 06-26-2020 Lactate [Moles/Vol] Chr istopher Doraiver Start: 06-26-2020 Urinalysis microscop ic only Ubaldo John Start: 06-26-2020 Urnls dip stick/tabl et rgnt auto w/o microscopy [facility] Plan of Treatment Date Care Activity Detail Author Start: 09-17-2025 Depression Monitoring Depression Mon itoring [employer] Start: 09-01-2025 Depression Monitoring [facility] Start: 06-09-2025 Depression Monitoring Depression Mon itoring [facility] Start: 2024 Lipid panel Lipids [employer] Start: 08-18-2024 Depression Monitoring Depression Mon itoring [facility] Start: 06-26-2024 COVID-19 Vaccine ( season) COVID-19 Vaccine ( season) [facility] Start: 05-26-2024 [facility] Start: 04-03-2024 Hemoglobin A1c measurement A1C test (Diabetic or Prediabetic) [facility] Start: 09-24-2023 Depression Monitoring [facility] Start: 06-26-2023 COVID-19 Vaccine ( season) COVID-19 [facility]ine ( [facility] Start: 05-26-2023 Influenza vaccination Flu vacc ine (Season Ended) [facility] Start: 11-19-2022 End: 11-19-2022 Patient encounter procedure 11/19/2022 Office Visit Primary Care Isis Chamberlain, HIEU - CHANGE CONTROL MANAGER [address] [facility] [address] [place] [address] [facility] Start: 10-24-2022 End: 09-24-2023 Cardiac Stress Test - w/Pharm Cardiac Stress Test - w/Pharm Cardiac Services Routine Chest pain, unspecified type Expected: 10/24/2022, Expires: 09/24/2023 [facility] Work Phone: Comment on above: Expected: 10/24/2022 , Expires: 09/24/2023 Start: 05-26-2022 Influenza vaccination Flu vaccine (# 1) [facility] Start: 06-26-2020 Influenza vaccination Flu vaccine (# 1) [place] Start: 2019 Diabetes screen Diabetes screen [facility] Start: 2003 DTaP/Tdap/Td vaccine (1 - Tdap) DTaP/Tdap/Td vaccine (1 - Tdap) [facility] Start: 2003 Hepatitis B vaccine (1 of 3 - 19+ 3-dose series) Hepatitis B vaccine (1 of 3 - 19+ 3-dose series) [facility] Start: 2002 Hepatitis C screening Hepatitis C sc reen [facility] Start: 1999 HIV screening HIV screen [facility] Start: 1997 Varicella vaccine (1 of 2 - 13+ 2-dose series) Varicella vaccine (1 of 2 - 13+ 2-dose series) [facility] Start: 1990 Pneumococcal 0-64 ye ars Vaccine (1 - PCV) Pneumococcal 0-64 years Vaccine (1 - PCV) [facility] Start: 1990 Pneumococcal 0-64 ye ars Vaccine (1 of 1 - PPSV23) Pneumococcal 0-64 years Vaccine (1 of 1 - PPSV23) [place], [place] Start: 1990 Pneumococcal 0-64 ye ars Vaccine (1 of 2 - PCV) Pneumococcal 0-64 years Vaccine (1 of 2 - PCV) [facility] Start: 1985 Varicella vaccine (1 of 2 - 2-dose childhood series) Varicella vaccine (1 of 2 - 2-dose childhood series) [facility] Start: 03-02-1985 COVID-19 Vaccine (#1) COVID-19 Vacci ne (#1) [facility] Start: 1984 Hepatitis B vaccine (1 of 3 - 3-dose series) Hepatitis B vaccine (1 of 3 - 3-dose series) [facility] End: 02-02-2023 Acetaminophen Level [facility] Work Phone: Comment on above: One Time for 1 Occur rences starting 02/02/2023 until 02/02/2023 End: 09-17-2024 Acetaminophen Level [employer] Comment on above: One Time for 1 Occur rences starting 09/17/2024 until 09/17/2024 End: 09-19-2024 COVID-19 & Influenza Combo COVID-19 & Influenza Combo Microbiology Routine One Time for 1 Occurrences starting 09/19/2024 until 09/19/2024 [employer] Comment on above: One Time for 1 Occur rences starting 09/19/2024 until 09/19/2024 EKG 12 Lead EKG 12 Lead ECG STAT 02/02/2023 6:13 PM EDT [facility] Work Phone: EKG 12 Lead EKG 12 Lead ECG STAT 09/17/2024 2:07 PM EST [employer] Nasal Cannula Oxygen Nasal Cannu la Oxygen Respiratory Care Routine Daily until discontinued starting 01/20/2023 [facility] Work Phone: Comment on above: Daily until disconti nued starting 01/20/2023 Oxygen therapy [[facility] Data Set] Initiate Oxygen Therapy Protocol Respiratory Care Routine As Needed until discontinued starting 01/20/2023 [facility] Work Phone: Comment on above: As Needed until disc ontinued starting 01/20/2023 Patient referral [facility] Work Phone: End: 02-02-2023 Salicylate [facility] Work Phone: Comment on above: One Time for 1 Occur rences starting 02/02/2023 until 02/02/2023 End: 09-17-2024 Salicylate [facility] Comment on above: One Time for 1 Occur rences starting 09/17/2024 until 09/17/2024 Payers Date Payer Category Payer Self-pay 2023 Unknown 2022 Medicaid [id number]. [id number] 2015 Unknown [employer] [id number] 2015-Present [phone] [address] [place] [address] [id number] 1.2.840.075493.1.13.239.2.7.3. [id number] 2015 Unknown [id number] 1.2.840.053618.1.13.239.2.7.3. [id number] 2015 Unknown [employer] [id number] 2015-Present [phone] [address] [place] [address] [id number] 1.2.840.182094.1.13.239.2.7.3. 705190.315 1984 Unknown [id number] 2.16840.1.406369.3.579.2.177 1984 Unknown [id number] 2.840.1.402448.3.579.2.177 1984 Unknown [id number] 2.16840.1.178496.3.579.2.174 1984 Unknown [id number] 2.16840.1.973374.3.579.2.176 1984 Unknown [id number] 2.16840.1.795525.3.579.2.176 1984 Unknown [id number] 2.16840.1.989623.3.579.2.196 1984 Unknown [id number] 2.16.840.1.945590.3.579.2.196 1984 Unknown [id number] 2.16.840.1.599196.3.579.2.196 1984 Unknown [id number] 2.16.840.1.552698.3.579.2.196 1984 Unknown [id number] 2.16.840.1.467791.3.579.2.196 1984 Unknown [id number] 2.16.840.1.324974.3.579.2.196 1984 Unknown [id number] 2.16840.1.762726.3.579.2.196 1984 Unknown [id number] 2.16840.1.644121.3.579.2.196 1984 Unknown [id number] 2.16840.1.695769.3.579.2.196 1984 Unknown [id number] 2.16.840.1.030955.3.579.2.196 1984 Unknown [id number] 2.16.840.1.141881.3.579.2.196 1984 Unknown [id number] 2.16840.1.520244.3.579.2.196 1984 Unknown [id number] 2.16840.1.003449.3.579.2.196 1984 Unknown [id number] 2.16.840.1.519319.3.579.2.196 1984 Unknown [id number] 2.16.840.1.678897.3.579.2.196 1984 Unknown [id number] 2.16.840.1.284321.3.579.2.93 1984 Unknown [id number] 2.16.840.1.006425.3.579.2.93 1984 Unknown [id number] 2.16.840.1.629438.3.579.2.93 1984 Unknown [id number] 2.16.840.1.035507.3.579.2.93 1984 Unknown [id number] 2.16.840.1.325407.3.579.2.93 1984 Unknown [id number] 2.16.840.1.988354.3.579.2.1286 1984 Unknown [id number] 2.16.840.1.782988.3.579.2.1286 1984 Unknown [id number] 2.16.840.1.386507.3.579.2.1285 1984 Unknown [id number] 2.16.840.1.944129.3.579.2.1285 1984 Unknown [id number] 2.16840.1.853827.3.579.2.1285 1984 Unknown [id number] 2.16.840.1.282760.3.579.2.128 1984 Unknown [id number] 2.16.840.1.590605.3.579.2.1285 1984 Unknown [id number] 2.16.840.1.156705.3.579.2.175 1984 Unknown [id number] 2.16.840.1.577061.3.579.2.175 1984 Unknown [id number] 2.16.840.1.886013.3.579.2.175 1984 Unknown [id number] 2.16.840.1.369885.3.579.2.175 1984 Unknown [id number] 2.16.840.1.929670.3.579.2.175 Unknown [id number] 2.16.840.1.283474.3.579.2.531 Unknown [id number] 2.16.840.1.088173.3.579.2.531 Social History Date Type Detail Facility Start: 09-01-2016 End: 05-02-2024 Tobacco smoking status NHIS Current every day smoker [facility] History of tobacco use Cigarette Smoker [place] Start: 09-01-2016 End: 11-21-2024 Cigarettes smoked current (pack per day) - Reported [facility] Start: 09-01-2016 End: 09-01-2024 [facility] [address] [place] Start: 09-01-2016 End: 01-20-2023 Alcohol intake Current non-drinker of alcohol (finding) [place] Start: 09-01-2016 End: 02-02-2023 Tobacco Comment pt accepted nicotine gum discontinued [place] Start: 09-01-2016 Alcohol Comment none for the past few months [place], [place] Start: 1985 Sex Assigned At Not on file [place] Start: 01-14-2023 End: 02-02-2023 Exposure to SARS-CoV-2 (event) Not sure [place] Start: 09-24-2022 End: 02-03-2023 History SDOH Financial 5 [facility] Work Phone: Start: 09-24-2022 History SDOH Food Worry 1 [employer] Phone: Start: 02-02-2023 End: 09-19-2024 Alcohol intake Current drinker of alcohol (finding) [facility] Work Phone: Start: 02-02-2023 Alcohol Comment usually a 12pack of beer a day [employer] Phone: History of tobacco use Tobacco U se Types Packs/Day Years Used Date Smoking Tobacco: Every Day Cigarettes 0.5 10 E-Cigarettes Smokeless Tobacco: Never [facility] Start: 01-05-2024 End: 11-21-2024 Alcohol Use Disorder Identification Test - Consumption [AUDIT-C] [facility] How often to you hav e a drink containing alcohol? Never [facility] How many standard dr inks containing alcohol do you have on a typical day? Patient does not drink [facility] How hard is it for y ou to pay for the very basics like food, housing, medical care, and heating Not very hard [facility] (I/We) worried wheth er (my/our) food would run out before (I/we) got money to buy more. Never true [facility] Start: 05-04-2024 Tobacco smoking status NHIS Never smoked tobacco (finding) [facility] Start: 1985 Sex Assigned At Male [facility] Start: 06-09-2024 Tobacco smoking status [facility] Tobacco smoking consumption unknown [facility] History of tobacco use Passive smoker [facility] Slacker Has the [employer], oil, or water company threatened to shut off services in your home in past 12Mo Yes [facility] How often to you hav e a drink containing alcohol? 4 or more times a week [facility] How many standard dr inks containing alcohol do you have on a typical day? 10 or more [facility] How often do you hav e 6 or more drinks on 1 occasion? Daily or almost daily [facility] (I/We) worried wheth er (my/our) food would run out before (I/we) got money to buy more. Sometimes true [facility] Start: 09-01-2024 Tobacco smoking status [facility] Ex-smoker [facility] History of tobacco use Current smoker [employer] How often to you hav e a drink containing alcohol? 2-3 time sa week [employer] How many standard dr inks containing alcohol do you have on a typical day? 5 or 6 [employer] How often to you hav e a drink containing alcohol? 2-4 times a month [employer] Clinical Notes 02-02-2023 to 11-21-2024 Discharge InstructionsDischarge InstructionsDischarge Instr - COCDischarge InstructionsDischarge Instr - COCAttachSamantha Tay RN - 06/12/2024 6:07 AM EDTDischarge InstructionsAttachments Note Date & Type Note Facility 11-21-2024 Hospital Discharge instructions Steven Purvis DO - 11/21/2024 2:05 PM EST Medically stable for [facility] You are seen and evaluated [facility] emergency department for alcohol withdrawal as well as suicidal ideation. You received medication to help with any potential withdrawals. You were seen and evaluated by social work. A discussion was had and you would like to go to [facility] for rehabilitation. Please follow-up with your primary care provider. Please return to the ED with any new or worsening symptoms or concerns. documented in this encounter [facility] 09-19-2024 Hospital Discharge instructions Kiran Ortiz MD - 09/19/2024 1:25 AM EST Prednisone daily x 4 days. Tylenol and motrin as needed. Follow up with PCP or ED if symptoms not improving. Shweta Rodriguez RN - 09/19/2024 1:40 AM EST Continuity of Care Form Patient Name: Daron Villarreal : 1985 Admit date: 09/19/2024 Discharge date: Code Status Order: Prior Advance Directives: Advance Care Flowsheet Documentation Admitting Physician: No admitting provider for patient encounter. PCP: Jonathan Stephenson APRN - CNP Discharging Nurse: Discharging Hospital Unit/Room#: E1/E1 Discharging Unit Phone Number: Emergency Contact: Extended Emergency Contact Information Primary Emergency Contact: villarrealtrina Mobile Relation: Brother/Sister Preferred language: Mexican Health Program Analyst needed? No Secondary Emergency Contact: Cristian Villarreal Mobile Relation: Child Past Surgical History: Past Surgical History: Procedure Laterality Date HAND DEBRIDEMENT Left 05/18/2014 HERNIA REPAIR OTHER SURGICAL HISTORY 04/27/2014 LEFT HAND I AND D ANDF PARTIAL WOUND CLOSURE TONSILLECTOMY Immunization History: There is no immunization history on file for this patient. Active Problems: Patient Active Problem List Diagnosis Code Depressive disorder F32.A Mixed bipolar I disorder ([facility]) F31.60 Alcohol dependence ([facility]) F10.20 Chronic post-traumatic stress disorder (PTSD) F43.12 Chronic post-traumatic stress disorder (PTSD) F43.12 Depression with suicidal ideation F32.A, R45.851 MDD (major depressive disorder), recurrent severe, without psychosis ([facility]) F33.2 Major depressive disorder, single episode F32.9 Primary hypertension I10 LANA (generalized anxiety disorder) F41.1 Alcohol use, unspecified with withdrawal, unspecified ([facility]) F10.939 Calculus of kidney N20.0 Chronic pain of left hand M79.642, G89.29 GERD (gastroesophageal reflux disease) K21.9 Impaired fasting glucose R73.01 Vitamin D deficiency E55.9 Severe episode of recurrent major depressive disorder, without psychotic features ([facility]) F33.2 Isolation/Infection: Isolation No Isolation Patient Infection Status None to display Nurse Assessment: Last Vital Signs: BP 110/81 Pulse 65 Temp 98.1 F (36.7 C) (Oral) Resp 16 Ht 1.803 m (5' 11 ) Wt 127 kg (280 lb) SpO2 98% BMI 39.05 kg/m Last documented pain score (0-10 scale): Pain Level: 7 (throat and chest congestion) Last Weight: Wt Readings from Last 1 Encounters: 09/19/24 127 kg (280 lb) Mental Status: {IP PT MENTAL STATUS:} IV Access: { [facility] IV ACCESS:988145566} Nursing Mobility/ADLs: Walking {CHP DME ADLs:417565014} Transfer {CHP DME ADLs:425638159} Bathing {CHP DME ADLs:883904419} Dressing {CHP DME ADLs:308010109} Toileting {CHP DME ADLs:307802952} Feeding {CHP DME ADLs:949335427} Bed Rubber {CHP DME ADLs:597442881} Med Delivery { [facility] MED Delivery:513971020} Wound Care Documentation and Therapy: Elimination: Continence: Bowel: {YES / NO:} Bladder: {YES / NO:} Urinary Catheter: {Urinary Catheter:961917658} Colostomy/Ileostomy/Ileal Conduit: {YES / NO:} Date of Last BM: No intake or output data in the 24 hours ending 09/19/24 0140 No intake/output data recorded. Safety Concerns: { [facility] Safety Concerns:362907619} Impairments/Disabilities: [place] [place]airments/Disabilities:8872126 73} Nutrition Therapy: Current Nutrition Therapy: {[facility] [place] Diet List:307737504} Routes of Feeding: {[facility] Other Feedings:383626696} Liquids: {[facility] liquid thickness:85049} Daily Fluid Restriction: {[facility] DME Yes amt example:854877730} Last Modified Barium Swallow with Video (Video Swallowing Test): {Done Not Done Date:} Treatments at the Time of Hospital Discharge: Respiratory Treatments: Oxygen Therapy: {Therapy; copd oxygen:92271} Ventilator: {[facility] Vent List:880465647} Rehab Therapies: {THERAPEUTIC INTERVENTION:9088165560} Weight Bearing Status/Restrictions: {[facility] Weight Bearin} Other Medical Equipment (for information only, NOT a DME order): {EQUIPMENT:866023055} Other Treatments: Patient's personal belongings (please select all that are sent with patient): {[facility] DME Belongings:944191974} RN SIGNATURE: {Esignature:047412338} CASE MANAGEMENT/SOCIAL WORK SECTION Inpatient Status Date: Readmission Risk Assessment Score: Readmission Risk Risk of Unplanned Readmission: 0 Discharging to Facility/ Agency Name: Address: Phone: Fax: Dialysis Facility (if applicable) Name: Address: Dialysis Schedule: Phone: Fax: Technical Education Teacher/Community Youth Secretary signature: {Esignature:409863800} PHYSICIAN SECTION Prognosis: {Prognosis:7135604579} Condition at Discharge: { Patient Condition:117773753} Rehab Potential (if transferring to Rehab): {Prognosis:6986477679} Recommended Labs or Other Treatments After Discharge: Physician Certification: I certify the above information and transfer of Daron Villarreal is necessary for the continuing treatment of the diagnosis listed and that he requires {Admit to Appropriate Level of Care:31912} for {GREATER/LESS:799563944} 30 days. Update Admission H&P: {CHP DME Changes in HandP:585212860} PHYSICIAN SIGNATURE: {Esignature:967426712} documented in this encounter [facility] 09-17-2024 Hospital Discharge instructions Mai Schuster MD - 09/17/2024 3:52 PM EST Daron Villarreal, It has been my absolute pleasure to serve you while in the emergency department at [facility] today. Please do remember to take all medications as prescribed. Please make sure you follow-up with your PCP within 7 days. Please follow-up with any and all specialists as we discussed. Please return to the ER in case of any worsening of symptoms. I wish you a speedy recovery! Sincerely, Dr. Mai Schuster MD. Svitlana Rasmussen RN - 09/17/2024 4:20 PM EST Continuity of Care Form Patient Name: Daron Villarreal : 1985 Admit date: 09/17/2024 Discharge date: Code Status Order: Prior Advance Directives: Advance Care Flowsheet Documentation Admitting Physician: No admitting provider for patient encounter. PCP: Jonathan Stephenson APRN - CNP Discharging Nurse: Discharging Hospital Unit/Room#: 1TR/TR1 Discharging Unit Phone Number: Emergency Contact: Extended Emergency Contact Information Primary Emergency Contact: trina villarreal Mobile Relation: Brother/Sister Preferred language: [place] Health Program Analyst needed? No Secondary Emergency Contact: Cristian Villarreal Mobile Relation: Child Past Surgical History: Past Surgical History: Procedure Laterality Date HAND DEBRIDEMENT Left 05/18/2014 HERNIA REPAIR OTHER SURGICAL HISTORY 04/27/2014 LEFT HAND I AND D ANDF PARTIAL WOUND CLOSURE TONSILLECTOMY Immunization History: There is no immunization history on file for this patient. Active Problems: Patient Active Problem List Diagnosis Code Depressive disorder F32.A Mixed bipolar I disorder ([facility]) F31.60 Alcohol dependence ([facility]) F10.20 Chronic post-traumatic stress disorder (PTSD) F43.12 Chronic post-traumatic stress disorder (PTSD) F43.12 Depression with suicidal ideation F32.A, R45.851 MDD (major depressive disorder), recurrent severe, without psychosis ([facility]) F33.2 Major depressive disorder, single episode F32.9 Primary hypertension I10 LANA (generalized anxiety disorder) F41.1 Alcohol use, unspecified with withdrawal, unspecified ([facility]) F10.939 Calculus of kidney N20.0 Chronic pain of left hand M79.642, G89.29 GERD (gastroesophageal reflux disease) K21.9 Impaired fasting glucose R73.01 Vitamin D deficiency E55.9 Severe episode of recurrent major depressive disorder, without psychotic features ([facility]) F33.2 Isolation/Infection: Isolation No Isolation Patient Infection Status None to display Nurse Assessment: Last Vital Signs: BP 112/73 Pulse 60 Temp 97.7 F (36.5 C) (Oral) Resp 14 Ht 1.803 m (5' 11 ) Wt 127 kg (280 lb) SpO2 97% BMI 39.05 kg/m Last documented pain score (0-10 scale): Last Weight: Wt Readings from Last 1 Encounters: 09/17/24 127 kg (280 lb) Mental Status: {IP PT MENTAL STATUS:42980} IV Access: { [facility] IV ACCESS:713822440} Nursing Mobility/ADLs: Walking {CHP DME ADLs:712462950} Transfer {CHP DME ADLs:765115612} Bathing {CHP DME ADLs:438206567} Dressing {CHP DME ADLs:408642197} Toileting {CHP DME ADLs:589779420} Feeding {CHP DME ADLs:823193883} Bed Rubber {CHP DME ADLs:707993158} Med Delivery { [facility] MED Delivery:303945546} Wound Care Documentation and Therapy: Elimination: Continence: Bowel: {YES / NO:} Bladder: {YES / NO:} Urinary Catheter: {Urinary Catheter:362961657} Colostomy/Ileostomy/Ileal Conduit: {YES / NO:} Date of Last BM: No intake or output data in the 24 hours ending 09/17/24 1620 No intake/output data recorded. Safety Concerns: { [facility] Safety Concerns:786823874} Impairments/Disabilities: [place] [place] Impairments/Disabilities:3440597 73} Nutrition Therapy: Current Nutrition Therapy: {[facility] [place] Diet List:878995841} Routes of Feeding: {[facility] Other Feedings:091068599} Liquids: {[facility] liquid thickness:40030} Daily Fluid Restriction: {[facility] Yes amt example:401399149} Last Modified Barium Swallow with Video (Video Swallowing Test): {Done Not Done Date:127390122} Treatments at the Time of Hospital Discharge: Respiratory Treatments: Oxygen Therapy: {Therapy; copd oxygen:71643} Ventilator: {[facility] Vent List:134192751} Rehab Therapies: {THERAPEUTIC INTERVENTION:5237776637} Weight Bearing Status/Restrictions: {[facility] Weight Bearin} Other Medical Equipment (for information only, NOT a DME order): {EQUIPMENT:849821009} Other Treatments: Patient's personal belongings (please select all that are sent with patient): {[facility] Belongings:697360629} RN SIGNATURE: {Esignature:188106662} CASE MANAGEMENT/SOCIAL WORK SECTION Inpatient Status Date: Readmission Risk Assessment Score: Readmission Risk Risk of Unplanned Readmission: 0 Discharging to Facility/ Agency Name: Address: Phone: Fax: Dialysis Facility (if applicable) Name: Address: Dialysis Schedule: Phone: Fax: Technical Education Teacher/Community Youth Secretary signature: {Esignature:166749026} PHYSICIAN SECTION Prognosis: {Prognosis:1215433797} Condition at Discharge: { Patient Condition:729283275} Rehab Potential (if transferring to Rehab): {Prognosis:2732406346} Recommended Labs or Other Treatments After Discharge: Physician Certification: I certify the above information and transfer of Daron Villarreal is necessary for the continuing treatment of the diagnosis listed and that he requires {Admit to Appropriate Level of Care:57776} for {GREATER/LESS:446043316} 30 days. Update Admission H&P: {CHP DME Changes in HandP:158659557} PHYSICIAN SIGNATURE: {Esignature:305954434} The following attachments cannot be sent through Care Everywhere.Insomnia (Mexican)Alcohol Withdrawal: General Info (Mexican)documented in this encounter [facility] 09-14-2024 Note [facility] 09-14-2024 Note [facility] Comment on above: Order Comment: See u pdated hospitalist discharge summary note 09-13-2024 Note [facility] 09-05-2024 Note Problem: Agitation Goal: LTG-Decrease in targeted symptoms Outcome: Progressing Goal: LTG-Allows ADL care Outcome: Progressing Goal: LTG-Take medications as prescribed Outcome: Progressing Goal: LTG-Sleeps through the night Outcome: Progressing The patient is Moderately Stable - Low risk of patient condition declining or worsening The patient's goals for the shift include comfort The clinical goals for the shift include Comfort and Safety Over the shift, the patient did not make progress toward the following goals. Barriers to progression include motivation. Recommendations to address these barriers include education. [facility] 09-05-2024 Note Problem: Agitation Goal: LTG-Decrease in targeted symptoms Outcome: Progressing Goal: LTG-Allows ADL care Outcome: Progressing Goal: LTG-Take medications as prescribed Outcome: Progressing Goal: LTG-Sleeps through the night Outcome: Progressing Problem: Anxiety Goal: LTG-Return to less restricted environment Outcome: Progressing Goal: LTG-Overall frequency and intensity of anxiety symptoms decrease Outcome: Progressing Goal: LTG-Decrease worry of fearful thoughts and/or behaviors Outcome: Progressing Goal: STG-Cooperates with evaluations from physicians/RNs Outcome: Progressing Problem: Substance Abuse (Historic and Current) Goal: LTG-Ability to name resources Outcome: Progressing Goal: LTG-Ability to notice triggers Outcome: Progressing Goal: LTG-Understand the need for abstinence Outcome: Progressing Goal: STG-Indicate withdrawl symptoms Outcome: Progressing Problem: Hypo/Hypertension Goal: LTG-Blood pressure remains in appropriate range Outcome: Progressing The patient is Moderately Unstable - Medium risk of patient condition declining or worsening The patient's goals for the shift include The clinical goals for the shift include [facility] 08-29-2024 Note [facility] 08-27-2024 Note [facility] 06-27-2024 Note Hospital Day: 6 REASON FOR HOSPITALIZATION: Alcohol dependence with active withdrawal. Subjective: (reported issues and events over the last 24 hours) Patient seen by this junior technical writer. No new problems per pt. Case discussed with nursing. Chart history, labs, and vitals reviewed. CIWA = 1 S/S of Withdrawal: Runny nose/watery eyes: Yes Belly cramps: No Nausea: No Vomiting: No Diarrhea: No Headache: Yes Body aches: Yes Restlessness: Yes Hot/old flashes: No Tremor: No Responding to: Milieu therapy, supportive Rx and CIWA protocol. Objective: Vitals: 06/27/24 0849 BP: 102/57 Pulse: 73 Resp: 16 Temp: SpO2: 97% No intake/output data recorded. Appearance/Grooming: well developed, well nourished Musculoskeletal: Normal Behavior: normal Eye Contact: normal Orientation: Appropriate to age Mood: anxious Affect: mood-congruent Memory: Recent: fair Attention Span: fair Concentration: fair Language Usage: Appropriate to age Speech: Coherent and Regular rate, rhythm, volume and articulation Fund. Of Knowledge: WNL Thought Processes: Abstract reasoning appropriate to age Thought Associations: No loosening of associations Thought Abnormalities or Psychosis: Not present Suicidal/ Homicidal: none Judgement: Fair for the need for treatment, poor by history. Insight: Fair for the need for treatment, poor by history. Sleep: normal Appetite: no change Energy: no change Gait: normal Lab Results: Results for orders placed or performed during the hospital encounter of 06/22/24 Acetaminophen level Result Value Ref Range Acetaminophen Level <10 (L) 10 - 30 ug/mL Basic metabolic panel Result Value Ref Range Sodium 135 (L) 136 - 145 mmol/L Potassium 3.9 3.5 - 5.1 mmol/L Chloride 103 98 - 107 mmol/L CO2 24 21 - 31 mmol/L BUN 14 7 - 25 mg/dL Creatinine 0.72 0.70 - 1.30 mg/dL Glucose 81 70 - 100 mg/dL Calcium 8.8 8.6 - 10.3 mg/dL Anion Gap 12 7 - 20 mmol/L eGFR 119.2 >60.0 mL/min/1.73m*2 BUN/Creatinine Ratio 19.4 Cholesterol, total Result Value Ref Range Cholesterol 199 120 - 200 mg/dL Gamma GT Result Value Ref Range GGT 54 9 - 64 U/L Hepatic function panel Result Value Ref Range Total Bilirubin 1.2 (H) 0.3 - 1.0 mg/dL Bilirubin, Direct 0.1 0 - 0.2 mg/dL Alkaline Phosphatase 61 34 - 104 U/L AST 21 13 - 39 U/L ALT (SGPT) 27 7 - 52 U/L Total Protein 7.5 6.0 - 8.3 g/dL Albumin 4.5 3.5 - 5.7 g/dL Magnesium Result Value Ref Range Magnesium 2.1 1.9 - 2.7 mg/dL Phosphorus Result Value Ref Range Phosphorus 2.5 2.5 - 5.0 mg/dL TSH Result Value Ref Range TSH 3.54 0.34 - 5.60 mIU/L Uric acid Result Value Ref Range Uric Acid 6.3 4.4 - 7.6 mg/dL Urinalysis Result Value Ref Range Color, Urine Straw (A) Yellow Clarity, Urine Clear Clear pH, Urine 6.0 5.0 - 8.0 pH Leukocytes, Urine Negative Negative Nitrite, Urine Negative Negative Protein, Urine Negative Negative mg/dL Glucose, Urine Negative Negative mg/dL Bilirubin, Urine Negative Negative Specific [place], Urine 1.004 (L) 1.015 - 1.020 Ketones, Urine Negative Negative mg/dL Blood, Urine Negative Negative Detox Panel Urine Result Value Ref Range Barbiturate Screen, Ur Negative Negative Benzodiazepines Screen, Urine Negative Negative Propoxyphene, Ur Negative Negative Methadone Screen, Urine Negative Negative TCA, Urine Negative Negative PCP Scrn, Ur Negative Negative Opiate Scrn, Ur Negative Negative Cocaine Screen, Urine Negative Negative Amphetamine+Methamphetamine Screen, Ur Negative Negative Cannabinoid Screen, Urine Positive (A) Negative RPR Result Value Ref Range RPR Nonreactive Nonreactive Alcohol Serum Result Value Ref Range Ethanol Calculated % Ethanol Lvl 60.1 mg/dL CBC auto differential Result Value Ref Range Auto WBC 5.69 4.00 - 10.60 10*3/uL RBC 5.68 4.20 - 5.70 10*6/uL Hemoglobin 17.2 (H) 13.0 - 17.0 g/dL Hematocrit 50.0 39.0 - 55.0 % MCV 88.0 82.0 - 98.0 fL MCH 30.3 27.0 - 33.0 pg MCHC 34.4 32.0 - 35.0 g/dL RDW 12.7 11.5 - 15.0 % Neutrophils Relative 40.6 40.0 - 72.0 % Lymphocytes Relative 45.3 (H) 20.0 - 45.0 % Monocytes Relative 7.2 5.0 - 12.0 % Eosinophils Relative 5.8 0.0 - 6.0 % Basophils Relative 0.9 0.0 - 1.0 % Neutrophils Absolute 2.31 1.60 - 7.60 10*3/uL Lymphocytes Absolute 2.58 1.20 - 4.00 10*3/uL Monocytes Absolute 0.41 0.10 - 1.00 10*3/uL Eosinophils Absolute 0.33 0.00 - 0.50 10*3/uL Basophils Absolute 0.05 0.00 - 0.20 10*3/uL Platelets 211 150 - 400 10*3/uL nRBC % 0.0 0 % Immature Granulocytes Relative 0.2 0.0 - 1.0 % Immature Granulocytes Absolute 0.01 0.00 - 0.20 10*3/uL Medications: Current Facility-Administered Medications Medication Dose Route Frequency Provider Last Rate Last Admin acetaminophen (Tylenol) tablet 650 mg 650 mg oral q6h PRN Severiano Chauhan MD 650 mg at 06/26/24 0927 alum-mag hydroxide-simeth (Mylanta) 200-200-20 mg/5 mL oral suspension 30 mL 30 mL (more content not included)... [facility] 06-26-2024 Note Hospital Day: 5 REASON FOR HOSPITALIZATION: Alcohol dependence with active withdrawal. Subjective: No change from yesterday. Patient seen by this junior technical writer while resting in bed. Patient endorses withdrawal symptoms such as BECK, tremors and anxiety. No new problems per pt. Case discussed with nursing. Chart history, labs, and vitals reviewed. S/S of Withdrawal: Headache: Yes Nausea: No Vomiting: No Diarrhea: No Anxiety: Yes Body aches: No Restlessness: No Hot/old flashes: No Tremor: Yes Tactile Disturbances: No Auditory Disturbances: No Visual Disturbances: No Responding to: Milieu therapy, supportive medication and CIWA protocol. Objective: Vitals: 06/26/24 0904 BP: 115/66 Pulse: 67 Resp: Temp: 36.8 ???C (98.2 ???F) SpO2: 97% No intake/output data recorded. Appearance/Grooming: eye contact fair, grooming moderately kept, and well developed, well nourished Musculoskeletal: Normal Behavior: normal Eye Contact: normal Orientation: Appropriate to age, Person, Place, and Time Mood: euthymic Affect: mood-congruent Memory: Recent: good Attention Span: good Concentration: good Language Usage: Appropriate to age Speech: Coherent and Regular rate, rhythm, volume and articulation Fund. Of Knowledge: WNL Thought Processes: Abstract reasoning appropriate to age Thought Associations: No loosening of associations Thought Abnormalities or Psychosis: Not present Suicidal/ Homicidal: none Judgement: Fair for the need for treatment, poor by history Insight: poor Sleep: hypersomnia Appetite: no change Energy: no change Gait: normal Lab Results: Results for orders placed or performed during the hospital encounter of 06/22/24 Acetaminophen level Result Value Ref Range Acetaminophen Level <10 (L) 10 - 30 ug/mL Basic metabolic panel Result Value Ref Range Sodium 135 (L) 136 - 145 mmol/L Potassium 3.9 3.5 - 5.1 mmol/L Chloride 103 98 - 107 mmol/L CO2 24 21 - 31 mmol/L BUN 14 7 - 25 mg/dL Creatinine 0.72 0.70 - 1.30 mg/dL Glucose 81 70 - 100 mg/dL Calcium 8.8 8.6 - 10.3 mg/dL Anion Gap 12 7 - 20 mmol/L eGFR 119.2 >60.0 mL/min/1.73m*2 BUN/Creatinine Ratio 19.4 Cholesterol, total Result Value Ref Range Cholesterol 199 120 - 200 mg/dL Gamma GT Result Value Ref Range GGT 54 9 - 64 U/L Hepatic function panel Result Value Ref Range Total Bilirubin 1.2 (H) 0.3 - 1.0 mg/dL Bilirubin, Direct 0.1 0 - 0.2 mg/dL Alkaline Phosphatase 61 34 - 104 U/L AST 21 13 - 39 U/L ALT (SGPT) 27 7 - 52 U/L Total Protein 7.5 6.0 - 8.3 g/dL Albumin 4.5 3.5 - 5.7 g/dL Magnesium Result Value Ref Range Magnesium 2.1 1.9 - 2.7 mg/dL Phosphorus Result Value Ref Range Phosphorus 2.5 2.5 - 5.0 mg/dL TSH Result Value Ref Range TSH 3.54 0.34 - 5.60 mIU/L Uric acid Result Value Ref Range Uric Acid 6.3 4.4 - 7.6 mg/dL Urinalysis Result Value Ref Range Color, Urine Straw (A) Yellow Clarity, Urine Clear Clear pH, Urine 6.0 5.0 - 8.0 pH Leukocytes, Urine Negative Negative Nitrite, Urine Negative Negative Protein, Urine Negative Negative mg/dL Glucose, Urine Negative Negative mg/dL Bilirubin, Urine Negative Negative Specific [place], Urine 1.004 (L) 1.015 - 1.020 Ketones, Urine Negative Negative mg/dL Blood, Urine Negative Negative Detox Panel Urine Result Value Ref Range Barbiturate Screen, Ur Negative Negative Benzodiazepines Screen, Urine Negative Negative Propoxyphene, Ur Negative Negative Methadone Screen, Urine Negative Negative TCA, Urine Negative Negative PCP Scrn, Ur Negative Negative Opiate Scrn, Ur Negative Negative Cocaine Screen, Urine Negative Negative Amphetamine+Methamphetamine Screen, Ur Negative Negative Cannabinoid Screen, Urine Positive (A) Negative RPR Result Value Ref Range RPR Nonreactive Nonreactive Alcohol Serum Result Value Ref Range Ethanol Calculated % Ethanol Lvl 60.1 mg/dL CBC auto differential Result Value Ref Range Auto WBC 5.69 4.00 - 10.60 10*3/uL RBC 5.68 4.20 - 5.70 10*6/uL Hemoglobin 17.2 (H) 13.0 - 17.0 g/dL Hematocrit 50.0 39.0 - 55.0 % MCV 88.0 82.0 - 98.0 fL MCH 30.3 27.0 - 33.0 pg MCHC 34.4 32.0 - 35.0 g/dL RDW 12.7 11.5 - 15.0 % Neutrophils Relative 40.6 40.0 - 72.0 % Lymphocytes Relative 45.3 (H) 20.0 - 45.0 % Monocytes Relative 7.2 5.0 - 12.0 % Eosinophils Relative 5.8 0.0 - 6.0 % Basophils Relative 0.9 0.0 - 1.0 % Neutrophils Absolute 2.31 1.60 - 7.60 10*3/uL Lymphocytes Absolute 2.58 1.20 - 4.00 10*3/uL Monocytes Absolute 0.41 0.10 - 1.00 10*3/uL Eosinophils Absolute 0.33 0.00 - 0.50 10*3/uL Basophils Absolute 0.05 0.00 - 0.20 10*3/uL Platelets 211 150 - 400 10*3/uL nRBC % 0.0 0 % Immature Granulocytes Relative 0.2 0.0 - 1.0 % Immature Granulocytes Absolute 0.01 0.00 - 0.20 10*3/uL Medications: Current Facility-Administered Medications Medication Dose Route Frequency Provider Last Rate Last Admin acetaminophen (Tylenol) (more content not included)... [facility] 06-25-2024 Note Hospital Day: 4 REASON FOR HOSPITALIZATION: Alcohol dependence with active withdrawal. Subjective: Patient seen by this junior technical writer while resting in bed. Patient endorses withdrawal symptoms such as BECK, tremors and anxiety. No new problems per pt. Case discussed with nursing. Chart history, labs, and vitals reviewed. S/S of Withdrawal: Headache: Yes Nausea: No Vomiting: No Diarrhea: No Anxiety: Yes Body aches: No Restlessness: No Hot/old flashes: No Tremor: Yes Tactile Disturbances: No Auditory Disturbances: No Visual Disturbances: No Responding to: Milieu therapy, supportive medication and CIWA protocol. Objective: Vitals: 06/25/24 0830 BP: 120/78 Pulse: 81 Resp: Temp: 36.4 ???C (97.5 ???F) SpO2: 94% No intake/output data recorded. Appearance/Grooming: eye contact fair, grooming moderately kept, and well developed, well nourished Musculoskeletal: Normal Behavior: normal Eye Contact: normal Orientation: Appropriate to age, Person, Place, and Time Mood: euthymic Affect: mood-congruent Memory: Recent: good Attention Span: good Concentration: good Language Usage: Appropriate to age Speech: Coherent and Regular rate, rhythm, volume and articulation Fund. Of Knowledge: WNL Thought Processes: Abstract reasoning appropriate to age Thought Associations: No loosening of associations Thought Abnormalities or Psychosis: Not present Suicidal/ Homicidal: none Judgement: Fair for the need for treatment, poor by history Insight: poor Sleep: hypersomnia Appetite: no change Energy: no change Gait: normal Lab Results: Results for orders placed or performed during the hospital encounter of 06/22/24 Acetaminophen level Result Value Ref Range Acetaminophen Level <10 (L) 10 - 30 ug/mL Basic metabolic panel Result Value Ref Range Sodium 135 (L) 136 - 145 mmol/L Potassium 3.9 3.5 - 5.1 mmol/L Chloride 103 98 - 107 mmol/L CO2 24 21 - 31 mmol/L BUN 14 7 - 25 mg/dL Creatinine 0.72 0.70 - 1.30 mg/dL Glucose 81 70 - 100 mg/dL Calcium 8.8 8.6 - 10.3 mg/dL Anion Gap 12 7 - 20 mmol/L eGFR 119.2 >60.0 mL/min/1.73m*2 BUN/Creatinine Ratio 19.4 Cholesterol, total Result Value Ref Range Cholesterol 199 120 - 200 mg/dL Gamma GT Result Value Ref Range GGT 54 9 - 64 U/L Hepatic function panel Result Value Ref Range Total Bilirubin 1.2 (H) 0.3 - 1.0 mg/dL Bilirubin, Direct 0.1 0 - 0.2 mg/dL Alkaline Phosphatase 61 34 - 104 U/L AST 21 13 - 39 U/L ALT (SGPT) 27 7 - 52 U/L Total Protein 7.5 6.0 - 8.3 g/dL Albumin 4.5 3.5 - 5.7 g/dL Magnesium Result Value Ref Range Magnesium 2.1 1.9 - 2.7 mg/dL Phosphorus Result Value Ref Range Phosphorus 2.5 2.5 - 5.0 mg/dL TSH Result Value Ref Range TSH 3.54 0.34 - 5.60 mIU/L Uric acid Result Value Ref Range Uric Acid 6.3 4.4 - 7.6 mg/dL Urinalysis Result Value Ref Range Color, Urine Straw (A) Yellow Clarity, Urine Clear Clear pH, Urine 6.0 5.0 - 8.0 pH Leukocytes, Urine Negative Negative Nitrite, Urine Negative Negative Protein, Urine Negative Negative mg/dL Glucose, Urine Negative Negative mg/dL Bilirubin, Urine Negative Negative Specific [place], Urine 1.004 (L) 1.015 - 1.020 Ketones, Urine Negative Negative mg/dL Blood, Urine Negative Negative Detox Panel Urine Result Value Ref Range Barbiturate Screen, Ur Negative Negative Benzodiazepines Screen, Urine Negative Negative Propoxyphene, Ur Negative Negative Methadone Screen, Urine Negative Negative TCA, Urine Negative Negative PCP Scrn, Ur Negative Negative Opiate Scrn, Ur Negative Negative Cocaine Screen, Urine Negative Negative Amphetamine+Methamphetamine Screen, Ur Negative Negative Cannabinoid Screen, Urine Positive (A) Negative RPR Result Value Ref Range RPR Nonreactive Nonreactive Alcohol Serum Result Value Ref Range Ethanol Calculated % Ethanol Lvl 60.1 mg/dL CBC auto differential Result Value Ref Range Auto WBC 5.69 4.00 - 10.60 10*3/uL RBC 5.68 4.20 - 5.70 10*6/uL Hemoglobin 17.2 (H) 13.0 - 17.0 g/dL Hematocrit 50.0 39.0 - 55.0 % MCV 88.0 82.0 - 98.0 fL MCH 30.3 27.0 - 33.0 pg MCHC 34.4 32.0 - 35.0 g/dL RDW 12.7 11.5 - 15.0 % Neutrophils Relative 40.6 40.0 - 72.0 % Lymphocytes Relative 45.3 (H) 20.0 - 45.0 % Monocytes Relative 7.2 5.0 - 12.0 % Eosinophils Relative 5.8 0.0 - 6.0 % Basophils Relative 0.9 0.0 - 1.0 % Neutrophils Absolute 2.31 1.60 - 7.60 10*3/uL Lymphocytes Absolute 2.58 1.20 - 4.00 10*3/uL Monocytes Absolute 0.41 0.10 - 1.00 10*3/uL Eosinophils Absolute 0.33 0.00 - 0.50 10*3/uL Basophils Absolute 0.05 0.00 - 0.20 10*3/uL Platelets 211 150 - 400 10*3/uL nRBC % 0.0 0 % Immature Granulocytes Relative 0.2 0.0 - 1.0 % Immature Granulocytes Absolute 0.01 0.00 - 0.20 10*3/uL Medications: Current Facility-Administered Medications Medication Dose Route Frequency Provider Last Rate Last Admin acetaminophen (Tylenol) tablet 650 mg 650 mg oral (more content not included)... [facility] 06-24-2024 Note Hospital Day: 3 REASON FOR HOSPITALIZATION: Alcohol dependence with active withdrawal. Subjective: Patient seen by this junior technical writer while resting in bed. Patient endorses withdrawal symptoms such as BECK, tremors and anxiety. Referral sent to [facility] for [facility]O treatment upon discharge. No new problems per pt. Case discussed with nursing. Chart history, labs, and vitals reviewed. CIWA = 3 S/S of Withdrawal: Headache: Yes Nausea: No Vomiting: No Diarrhea: No Anxiety: Yes Body aches: No Restlessness: No Hot/old flashes: No Tremor: Yes Tactile Disturbances: No Auditory Disturbances: No Visual Disturbances: No Responding to: Milieu therapy, supportive medication and CIWA protocol. Objective: Vitals: 06/24/24 0805 BP: 101/63 Pulse: 70 Resp: 16 Temp: 36.6 ???C (97.9 ???F) SpO2: 98% No intake/output data recorded. Appearance/Grooming: eye contact fair, grooming moderately kept, and well developed, well nourished Musculoskeletal: Normal Behavior: normal Eye Contact: normal Orientation: Appropriate to age, Person, Place, and Time Mood: euthymic Affect: mood-congruent Memory: Recent: good Attention Span: good Concentration: good Language Usage: Appropriate to age Speech: Coherent and Regular rate, rhythm, volume and articulation Fund. Of Knowledge: WNL Thought Processes: Abstract reasoning appropriate to age Thought Associations: No loosening of associations Thought Abnormalities or Psychosis: Not present Suicidal/ Homicidal: none Judgement: Fair for the need for treatment, poor by history Insight: poor Sleep: hypersomnia Appetite: no change Energy: no change Gait: normal Lab Results: Results for orders placed or performed during the hospital encounter of 06/22/24 Acetaminophen level Result Value Ref Range Acetaminophen Level <10 (L) 10 - 30 ug/mL Basic metabolic panel Result Value Ref Range Sodium 135 (L) 136 - 145 mmol/L Potassium 3.9 3.5 - 5.1 mmol/L Chloride 103 98 - 107 mmol/L CO2 24 21 - 31 mmol/L BUN 14 7 - 25 mg/dL Creatinine 0.72 0.70 - 1.30 mg/dL Glucose 81 70 - 100 mg/dL Calcium 8.8 8.6 - 10.3 mg/dL Anion Gap 12 7 - 20 mmol/L eGFR 119.2 >60.0 mL/min/1.73m*2 BUN/Creatinine Ratio 19.4 Cholesterol, total Result Value Ref Range Cholesterol 199 120 - 200 mg/dL Gamma GT Result Value Ref Range GGT 54 9 - 64 U/L Hepatic function panel Result Value Ref Range Total Bilirubin 1.2 (H) 0.3 - 1.0 mg/dL Bilirubin, Direct 0.1 0 - 0.2 mg/dL Alkaline Phosphatase 61 34 - 104 U/L AST 21 13 - 39 U/L ALT (SGPT) 27 7 - 52 U/L Total Protein 7.5 6.0 - 8.3 g/dL Albumin 4.5 3.5 - 5.7 g/dL Magnesium Result Value Ref Range Magnesium 2.1 1.9 - 2.7 mg/dL Phosphorus Result Value Ref Range Phosphorus 2.5 2.5 - 5.0 mg/dL TSH Result Value Ref Range TSH 3.54 0.34 - 5.60 mIU/L Uric acid Result Value Ref Range Uric Acid 6.3 4.4 - 7.6 mg/dL Urinalysis Result Value Ref Range Color, Urine Straw (A) Yellow Clarity, Urine Clear Clear pH, Urine 6.0 5.0 - 8.0 pH Leukocytes, Urine Negative Negative Nitrite, Urine Negative Negative Protein, Urine Negative Negative mg/dL Glucose, Urine Negative Negative mg/dL Bilirubin, Urine Negative Negative Specific [place], Urine 1.004 (L) 1.015 - 1.020 Ketones, Urine Negative Negative mg/dL Blood, Urine Negative Negative Detox Panel Urine Result Value Ref Range Barbiturate Screen, Ur Negative Negative Benzodiazepines Screen, Urine Negative Negative Propoxyphene, Ur Negative Negative Methadone Screen, Urine Negative Negative TCA, Urine Negative Negative PCP Scrn, Ur Negative Negative Opiate Scrn, Ur Negative Negative Cocaine Screen, Urine Negative Negative Amphetamine+Methamphetamine Screen, Ur Negative Negative Cannabinoid Screen, Urine Positive (A) Negative RPR Result Value Ref Range RPR Nonreactive Nonreactive Alcohol Serum Result Value Ref Range Ethanol Calculated % Ethanol Lvl 60.1 mg/dL CBC auto differential Result Value Ref Range Auto WBC 5.69 4.00 - 10.60 10*3/uL RBC 5.68 4.20 - 5.70 10*6/uL Hemoglobin 17.2 (H) 13.0 - 17.0 g/dL Hematocrit 50.0 39.0 - 55.0 % MCV 88.0 82.0 - 98.0 fL MCH 30.3 27.0 - 33.0 pg MCHC 34.4 32.0 - 35.0 g/dL RDW 12.7 11.5 - 15.0 % Neutrophils Relative 40.6 40.0 - 72.0 % Lymphocytes Relative 45.3 (H) 20.0 - 45.0 % Monocytes Relative 7.2 5.0 - 12.0 % Eosinophils Relative 5.8 0.0 - 6.0 % Basophils Relative 0.9 0.0 - 1.0 % Neutrophils Absolute 2.31 1.60 - 7.60 10*3/uL Lymphocytes Absolute 2.58 1.20 - 4.00 10*3/uL Monocytes Absolute 0.41 0.10 - 1.00 10*3/uL Eosinophils Absolute 0.33 0.00 - 0.50 10*3/uL Basophils Absolute 0.05 0.00 - 0.20 10*3/uL Platelets 211 150 - 400 10*3/uL nRBC % 0.0 0 % Immature Granulocytes Relative 0.2 0.0 - 1.0 % Immature Granulocytes Absolute 0.01 0.00 - 0.20 10*3/uL Medications: Current Facility-Administered Medications Medication Dose Route Asher (more content not included)... [facility] 06-23-2024 Note Attestation signed by Reyna Bueno MD at 06/23/2024 4:51 PM Case was discussed with diagnostic medical sonographer Dr Parikh on 06/23/2024. I agree with the history, physical, assessment, and plan of care. I discussed the findings and therapeutic plan. I agree with the documentation. Patient seen and evaluated Reyna Bueno MD GIM Inpatient Progress Note Patient - Daron Villarreal Age - 38 y.o. - 1985 [facility] # - [id number] Date of Admission - 06/22/2024 11:37 AM Interval history Patient was seen and examined at bedside this morning. Hemodynamically stable and afebrile. Saturating well on room air. Denied chest pain, SOB, cough, abdominal pain or change in bowel habits. OBJECTIVE Vitals height is 1.803 m (5' 11 ) and weight is 127 kg (281 lb). His oral temperature is 36.5 ???C (97.7 ???F). His blood pressure is 119/74 and his pulse is 71. His respiration is 16 and oxygen saturation is 100%. Temp: [36.5 ???C (97.7 ???F)] 36.5 ???C (97.7 ???F) Heart Rate: [59-82] 71 Resp: [16] 16 BP: (98-119)/(71-74) 119/74 Weight: Admission weight: 127 kg (281 lb) Wt Readings from Last 1 Encounters: 06/22/24 127 kg (281 lb) Input/Output: No intake or output data in the 24 hours ending 06/23/24 1422 Physical Examination: General: Well-appearing, in no acute distress Head: Normocephalic, atraumatic. HEENT: No scleral icterus. Oral mucosa is moist without erythema, lesions, or ulcerations. Pulm: Clear to auscultation. No audible wheezing, rales, or rhonchi. Breathing is non-labored. Cardiac: Regular rate, regular rhythm. Normal S1/S2. No appreciable murmurs, gallops, or rubs. GI: Abdomen is soft, non-distended, non-tender. Ext: No peripheral edema. Neuro: Alert and oriented x 3. Lab Results Results from last 7 days Lab Units 06/22/24 1221 WBC AUTO 10*3/uL 5.69 HEMOGLOBIN g/dL 17.2* HEMATOCRIT % 50.0 PLATELETS AUTO 10*3/uL 211 Results from last 7 days Lab Units 06/22/24 1221 SODIUM mmol/L 135* POTASSIUM mmol/L 3.9 CHLORIDE mmol/L 103 CO2 mmol/L 24 BUN mg/dL 14 CREATININE mg/dL 0.72 GLUCOSE mg/dL 81 CALCIUM mg/dL 8.8 MAGNESIUM mg/dL 2.1 Results from last 7 days Lab Units 06/22/24 1221 ALBUMIN g/dL 4.5 BILIRUBIN TOTAL mg/dL 1.2* ALT U/L 27 AST U/L 21 ALK PHOS U/L 61 No results found for: HGBA1C No lab exists for component: TROPI , TROPONIN No lab exists for component: ABGPH , ABGPCO2 , ABGPO2 , ABGHCO3 , ABGBASEDEFIC , TCUN6WVE , ABGOXYGENSOU No lab exists for component: LACTICACID , PROCALCITON Results from last 7 days Lab Units 06/22/24 1221 CHOLESTEROL mg/dL 199 Lab Results Component Value Date WBCU 6-10 (A) 09/28/[address] results found for the past 12 months No MRI head results found for the past 12 months No X-ray results found for the past 3 days Medications Scheduled: FLUoxetine, 40 mg, oral, Daily folic acid, 1 mg, oral, Daily levothyroxine, 50 mcg, oral, Daily before breakfast magnesium oxide, 400 mg, oral, BID Followed by [START ON 06/24/2024] magnesium oxide, 400 mg, oral, Daily thiamine, 100 mg, oral, Daily Infusions: As Needed: PRN medications: acetaminophen, alum-mag hydroxide-simeth, bisacodyl, cloNIDine, dicyclomine, gabapentin, guaiFENesin, hydrOXYzine pamoate, loperamide, LORazepam OR LORazepam OR LORazepam OR LORazepam, magnesium hydroxide, ondansetron ODT OR ondansetron ODT, prochlorperazine, prochlorperazine, traZODone ASSESSMENT: Alcohol use disorder and withdrawal Hypothyroidism Anxiety and depression PLAN: Patient is cleared for detox Encourage alcohol and smoking cessation Continue synthroid Annie Parikh MD. PGY3, Internal Medicine Residency Program [facility] Preferred contact methods: [facility] Chat GIM consult pager [facility] 06-23-2024 Note Hospital Day: 2 REASON FOR HOSPITALIZATION: Alcohol dependence with active withdrawal. Subjective: (reported issues and events over the last 24 hours) Patient seen by this junior technical writer. Patient reports symptoms as below. He is eating well and slept okay last night. No new problems per pt. Case discussed with nursing. Chart history, labs, and vitals reviewed. CIWA = CIWA-Ar Total: 6 S/S of Withdrawal: Headache: Yes Nausea: No Vomiting: No Diarrhea: Yes Anxiety: Yes Body aches: Yes Restlessness: Yes Hot/old flashes: Yes Tremor: No Tactile Disturbances: No Auditory Disturbances: No Visual Disturbances: No Responding to: Milieu therapy, supportive medication and CIWA protocol. Objective: Vitals: 06/23/24 0830 BP: 119/74 Pulse: 71 Resp: Temp: SpO2: 100% No intake/output data recorded. Appearance/Grooming: well developed, well nourished Musculoskeletal: Normal Behavior: normal Eye Contact: normal Orientation: Appropriate to age Mood: within normal limits Affect: mood-congruent Memory: Recent: fair Attention Span: fair Concentration: fair Language Usage: Appropriate to age Speech: Coherent and Regular rate, rhythm, volume and articulation Fund. Of Knowledge: WNL Thought Processes: Abstract reasoning appropriate to age Thought Associations: No loosening of associations Thought Abnormalities or Psychosis: Not present Suicidal/ Homicidal: none Judgement: Fair for the need for treatment, poor by history Insight: fair Sleep: normal Appetite: no change Energy: no change Gait: not assessed Lab Results: Results for orders placed or performed during the hospital encounter of 06/22/24 Acetaminophen level Result Value Ref Range Acetaminophen Level <10 (L) 10 - 30 ug/mL Basic metabolic panel Result Value Ref Range Sodium 135 (L) 136 - 145 mmol/L Potassium 3.9 3.5 - 5.1 mmol/L Chloride 103 98 - 107 mmol/L CO2 24 21 - 31 mmol/L BUN 14 7 - 25 mg/dL Creatinine 0.72 0.70 - 1.30 mg/dL Glucose 81 70 - 100 mg/dL Calcium 8.8 8.6 - 10.3 mg/dL Anion Gap 12 7 - 20 mmol/L eGFR 119.2 >60.0 mL/min/1.73m*2 BUN/Creatinine Ratio 19.4 Cholesterol, total Result Value Ref Range Cholesterol 199 120 - 200 mg/dL Gamma GT Result Value Ref Range GGT 54 9 - 64 U/L Hepatic function panel Result Value Ref Range Total Bilirubin 1.2 (H) 0.3 - 1.0 mg/dL Bilirubin, Direct 0.1 0 - 0.2 mg/dL Alkaline Phosphatase 61 34 - 104 U/L AST 21 13 - 39 U/L ALT (SGPT) 27 7 - 52 U/L Total Protein 7.5 6.0 - 8.3 g/dL Albumin 4.5 3.5 - 5.7 g/dL Magnesium Result Value Ref Range Magnesium 2.1 1.9 - 2.7 mg/dL Phosphorus Result Value Ref Range Phosphorus 2.5 2.5 - 5.0 mg/dL TSH Result Value Ref Range TSH 3.54 0.34 - 5.60 mIU/L Uric acid Result Value Ref Range Uric Acid 6.3 4.4 - 7.6 mg/dL Urinalysis Result Value Ref Range Color, Urine Straw (A) Yellow Clarity, Urine Clear Clear pH, Urine 6.0 5.0 - 8.0 pH Leukocytes, Urine Negative Negative Nitrite, Urine Negative Negative Protein, Urine Negative Negative mg/dL Glucose, Urine Negative Negative mg/dL Bilirubin, Urine Negative Negative Specific [place], Urine 1.004 (L) 1.015 - 1.020 Ketones, Urine Negative Negative mg/dL Blood, Urine Negative Negative Detox Panel Urine Result Value Ref Range Barbiturate Screen, Ur Negative Negative Benzodiazepines Screen, Urine Negative Negative Propoxyphene, Ur Negative Negative Methadone Screen, Urine Negative Negative TCA, Urine Negative Negative PCP Scrn, Ur Negative Negative Opiate Scrn, Ur Negative Negative Cocaine Screen, Urine Negative Negative Amphetamine+Methamphetamine Screen, Ur Negative Negative Cannabinoid Screen, Urine Positive (A) Negative Alcohol Serum Result Value Ref Range Ethanol Calculated % Ethanol Lvl 60.1 mg/dL CBC auto differential Result Value Ref Range Auto WBC 5.69 4.00 - 10.60 10*3/uL RBC 5.68 4.20 - 5.70 10*6/uL Hemoglobin 17.2 (H) 13.0 - 17.0 g/dL Hematocrit 50.0 39.0 - 55.0 % MCV 88.0 82.0 - 98.0 fL MCH 30.3 27.0 - 33.0 pg MCHC 34.4 32.0 - 35.0 g/dL RDW 12.7 11.5 - 15.0 % Neutrophils Relative 40.6 40.0 - 72.0 % Lymphocytes Relative 45.3 (H) 20.0 - 45.0 % Monocytes Relative 7.2 5.0 - 12.0 % Eosinophils Relative 5.8 0.0 - 6.0 % Basophils Relative 0.9 0.0 - 1.0 % Neutrophils Absolute 2.31 1.60 - 7.60 10*3/uL Lymphocytes Absolute 2.58 1.20 - 4.00 10*3/uL Monocytes Absolute 0.41 0.10 - 1.00 10*3/uL Eosinophils Absolute 0.33 0.00 - 0.50 10*3/uL Basophils Absolute 0.05 0.00 - 0.20 10*3/uL Platelets 211 150 - 400 10*3/uL nRBC % 0.0 0 % Immature Granulocytes Relative 0.2 0.0 - 1.0 % Immature Granulocytes Absolute 0.01 0.00 - 0.20 10*3/uL Medications: Current Facility-Administered Medications Medication Dose Route Frequency Provider Last Rate Last Admin acetaminophen (Tylenol) tablet 650 mg 650 mg oral q6h PRN Severiano Chauhan MD 650 mg at 06/23/24 0845 alum-mag hydroxide-s (more content not included)... [facility] 06-22-2024 Note Psychosocial Narrati ve Summary Subject: Daron Villarreal Reason for admission: Pt is a 38-year old male who presents to [facility] for alcohol withdrawal. Pt reports he is drinking about 12-16, 12oz beers daily. Pt reports he lives with a roommate but does not plan to return, he is currently unemployed. Pt has previous admissions to [facility], most recently in November 2023, where upon discharge pt was referred to [facility] for outpatient treatment. Pt denies legal concerns. Pt denies homicidal and suicidal ideation. Pt denies auditory and visual hallucinations. 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 [facility] 06-12-2024 History of Present illness Narrative 24 hour chart review complete. Patient did not attend goal wrap up and relaxation group. Psychiatry Progress Note 06-11-2024 CC: suicide attempt by laying on train tracks and then overdosing Subjective Progress: Frantz states he is improving daily. Reports depressed mood is less. Denies AH/VH; Denies SI/HI. Reports medication is helping. Denies having side effects. Good med compliance is verified. Reports appetite and sleep are better. Verified slept 8 hours continuous. States he ahs been attending groups. Denies getting any visits. Denies talking toanyone on phone. States his primary stressor is being homeless. States he may return to [facility] where most of his support systems are located. Objective BP 115/83 Pulse 81 Temp 98.1 F (36.7 C) (Oral) Resp 16 Ht 1.804 m (5' 11.02 ) Wt 127 kg (280 lb) SpO2 98% BMI 39.03 kg/m MSE: Level of consciousness: Alert Appearance: hospital attire, in chair and fair grooming Behavior/Motor: no abnormalities noted Attitude toward examiner: cooperative Speech: Normal volume, goal directed, NRR Mood: Euthymic Affect: Reactive Thought processes: Linear and goal directed Suicidal Ideation: Denies suicidal ideations Homicidal ideation: Denies homicidal ideations Delusions: No evidence of delusions is observed Perceptual Disturbance: Denies AH/VH Cognition: Oriented to person, place, time and situation Concentration fair Memory intact Insight: Limited Judgment: Limited Assessment: 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 Supportive Therapy conducted. Probable discharge is TBD Ubaldo Wall CNP 06-11-2024 Psychiatry Attending Attestation I assessed this patient and reviewed the case and plan of care with Ubaldo Wall CNP. I have reviewed the above documentation and I agree with the findings and treatment plan with the following updates. Patient feels better than before. Mood and affect are better. Patient reports fleeting suicidal thoughts with no intent or plan. Patient notes that these thoughts are occurring less frequently. Denies any homicidal thoughts, that was explored with the patient. Oriented to time place and person. Recent and remote memory is intact. Patient feels hopeful. Sleep and appetite is good. No side effect from medication reported. Side-effect of medication were discussed with the patient . Patient is responding to current treatment. Discharge soon, if patient continues to show improvement. Case discussed with the staff. ASSESSMENT MDD (major depressive disorder), recurrent severe, without psychosis (HCC) PLAN Patient s symptoms are improving Attempt to develop insight Psycho-education conducted. Supportive Therapy conducted. Probable discharge is tomorrow Follow-up TBD More than 16 mins of the session was spent doing Supportive psychotherapy and coordinating care. Session lasted for over 30 mins. Patient was evaluated by Ubaldo Wall CNP on the unit in person and I evaluated patient as Tele visit. This Virtual Visit was conducted with patient's consent. The patient is located in a state where I am licensed to provide care. Daron Villarreal is a 38 y.o. male being evaluated by a Virtual Visit (video visit) encounter to address concerns as mentioned above. A caregiver was present in the room along with the patient. Patient's consent was obtained for Tele visit. Patient is present at [facility] and I am physically present at my home in [place], [place] --Nav England MD on 06/11/2024 at 4:36 PM An electronic signature was used to authenticate this note. This report has been created using voice recognition software. It may contain minor errors which are inherent in voice recognition technology. 24 hour chart review completed. Group Therapy Note Date: 06/11/2024 Start Time: 1999 End Time: 2019 Number of Participants: 5 Type of Group: Relaxation Notes: Patient participated in group appropriately. Patient was calm, cooperative and interactive answering questions during Talk to me ice breaker card game. Participation Level: Active Listener and Interactive Participation Quality: Appropriate, Attentive, Sharing, and Supportive Speech: normal Thought Process/Content: Logical Level of consciousness: Alert and Attentive Response to Learning: Able to verbalize current knowledge/experience, Able to verbalize/acknowledge new learning, Able to retain information, and Capable of insight Modes of Intervention: Socialization Discipline Responsible: Licensed Practical Nurse Signature: Trudy Kong LPN Psychotherapy Group [id number]- Patient did not attend. Department of Psychiatry Progress Note Chief Complaint: suicide attempt by laying on train tracks and then overdosing PROGRESS: Patient was medicated and placed in seclusion last night due to threatening staff, yelling and demanding discharge. While in seclusion he urinated on the floor, put the mattress over the camera, tore up a pillow, was spitting, kicking and punching the patel and doors. He attempted to defecate on the floor but was unsuccessful Per nurse Trudy note: 19:30 During bedside shift report , patient laying in bed, eyes closed, respirations easy and regular. 20:00 Returned to perform PM assessment and vitals. Patient laying in bed awake, calm and cooperative. Patients vitals within normal range, patient reported mood 10/10, Anxiety 10/10 and depression 10/10. Patient stated he had a bad dream about his dying in the fire. Patient denied suicidal and homicidal thoughts. Patients affect was flat/ blunt with fair eye contact and clear speech. Patient stated he would like something for his anxiety and that he would come out to get a snack and get his medications, no further needs or concerns were voiced at that time. 20:15 Patient is at [facility] stating that he does not want to take the Atarax for his anxiety. Patient stated he needed something more than Atarax for his anxiety and if he didn't get it I will go the fuck off. Patient stated Matter of fact call the Doctor and tell him that I want to be discharged, I want the fuck out of here . 20:[address] Navarrete, verbal phone order per Dr. Navarrete for IM Haldol/Benadryl and seclusion room if necessary, at 20:25 message relayed to patient that he will have to wait until the next day to talk with Doctor regarding discharge and that Haldol was ordered if he does not want to take the Atarax. Patient then began to raise his voice and become visibly irritated, shouting and cussing at the Nurses, making verbal threats, stating I ain't going back to my fucking room, I'm gonna sit out here all night. 20:27 Call placed to [place] [employer] 20:30 5 mg of Haldol and 50 mg of Benadryl were administered IM in left deltoid 20:37 Patient placed in Seclusion, continues to yell and curse at staff, states that he wants to fucking leave. He let me leave the last time when I wanted to. Nurse explained to patient that if he wants to come out of seclusion, he must lower his voice and not yell, he is disturbing the other patients, he must not be verbally or physically aggressive, he needs to stop yelling, shouting, cussing at the staff and he is to stop spitting, hitting, banging on the patel and door as well. 20:[address] Navarrete, updated on patient behaviors, stated can repeat medications if ineffective in 30 minutes at 20:40 Patient peed on floor, covered camera with mattress at 20:41 staff accompanied by campus police entered seclusion room, mattress removed patient continues to yell and verbally assault staff and campus police by stating you guys ain't no fucking police, you're fucking pussies, you ain't no fucking Nurse. 20:55 Patient spitting on and hitting camera with hand 20:57 Patient ripped up pillow and threw stuffing onto the floor 21:00 Patient trying to cover camera with pillow fluff 21:02 Removed pillow fluff and shredded casing from seclusion room 21:05 Patient kicking door/ hitting/ banging on patel 21:09 Patient pulled off pants and strains in an attempt to poop on floor, but did not defecate 21:11 Patient utilized toilet 21:12 Patient done with toilet 21:15 Patient is pacing, yelling at Nurses and [place] [employer], trying to squeeze medication out of arm, patient shouting I don't give a fuck about dying, I wanna go to fucking [facility], take me to fucking [facility]. 22:00 Patient utilized bathroom, water, mattress, blanket and pillow given to patient 22:15 Patient in bed, awake 22:30 Seclusion discontinued 22:35 Patient declined seclusion debriefing Daron was seen in unlocked seclusion today. He was initially resting in bed but aroused to verbal stimuli and was cooperative and calm at first. He was asked about the events that took place last night. He stated that he would like to be discharged. When told that he was not going to be discharged due to the events that led to his admission and his impulsive threatening behaviors last night he immediately started escalating and raising his voice at the providers. He adamantly denied threatening staff last night and was fixated that he did not do this during the interview. He stated that the only person he threatened was myself. He had no insight into his behaviors last night. He blamed it on My PTSD acting up. It appeared that he thought if he acted out that the psychiatrist would discharge him like he requested. When told by the attending psychiatrist that there is a possibility of probate if the psychiatrist does not feel he is ready for discharge when his E[facility] is up, the patient encouraged the doctor to take him to court stating I know my laws. He then stated Im homeless you are doing a favor by keeping me here longer. I don't give a fuck how long I have to be here. Its better than staying on the streets. He then continued to raise his voice and curse at the providers eventually stating get the fuck out. The interview was ended at that time. Given the incident last night and the patient's behavior today, there is strong concern for the patient being manipulative and possibly having antisocial personality disorder. He has no remorse for what he did or said last night. It appears that the patient was acting out in order to receive benzodiazepines and to be discharged. After the interview, the patient requested p.o. Haldol from his nurse Juliane to help him calm down. Suicidal ideations: Could not assess. Denied to staff Compliance with medications: good Medication side effects: Could not assess. None per staff ROS: Patient has new complaints: no Sleep quality: 7.5 hours broken last night per staff Attending groups: none today OBJECTIVE Medications Current Facility-Administered Medications: FLUoxetine (PROZAC) capsule 40 mg, 40 mg, Oral, Daily gabapentin (NEURONTIN) capsule 300 mg, 300 mg, Oral, TID acetaminophen (TYLENOL) tablet 650 mg, 650 mg, Oral, Q4H PRN ibuprofen (ADVIL;MOTRIN) tablet 400 mg, 400 mg, Oral, Q6H PRN magnesium hydroxide (MILK OF MAGNESIA) 400 MG/5ML suspension 30 mL, 30 mL, Oral, Daily PRN aluminum & magnesium hydroxide-simethicone (MAALOX) 200-200-20 MG/5ML suspension 30 mL, 30 mL, Oral, Q6H PRN hydrOXYzine HCl (ATARAX) tablet 50 mg, 50 mg, Oral, TID PRN traZODone (DESYREL) tablet 50 mg, 50 mg, Oral, Nightly PRN diphenhydrAMINE (BENADRYL) tablet 50 mg, 50 mg, Oral, Q6H PRN OR diphenhydrAMINE (BENADRYL) injection 50 mg, 50 mg, IntraMUSCular, Q6H PRN haloperidol lactate (HALDOL) injection 5 mg, 5 mg, IntraMUSCular, Q6H PRN OR haloperidol (HALDOL) tablet 5 mg, 5 mg, Oral, Q6H PRN Physical height is 1.804 m (5' 11.02 ) and weight is 127 kg (280 lb). His oral temperature is 98 F (36.7 C). His blood pressure is 109/92 (abnormal) and his pulse is 67. His respiration is 16 and oxygen saturation is 99%. Lab Results Component Value Date WBC 7.7 06/08/2024 HGB 16.4 06/08/2024 HCT 47.7 06/08/2024 PLT 230 06/08/2024 ALT 47 06/08/2024 AST 30 06/08/2024 NA 136 06/08/2024 K 4.5 06/08/2024 CL 102 06/08/2024 CREATININE 0.8 06/08/2024 BUN 21 06/08/2024 CO2 21 (L) 06/08/2024 TSH 3.440 02/04/2023 LABA1C 5.2 04/03/2023 Mental Status Exam: Level of consciousness: awake Appearance: well-appearing, hospital attire, seated on side of bed, good grooming, and good hygiene Behavior/Motor: Agitated, hostile Attitude toward examiner: cooperative at first but then became verbally aggressive and eventually dismissive. Good eye contact Speech: Loud, cursing, irritable tone Mood: Irritable Affect: blunted, angry Thought processes: linear, goal directed, and coherent Thought content: Could not assess homicidal ideation Suicidal Ideation: Could not assess Delusions: Could not assess Perceptual Disturbance: Could not assess Cognition: Patient is oriented to person, place, time and situation Concentration: clinically adequate Memory: intact Insight & Judgement: poor Reviewed patient's current plan of care and vital signs with nursing staff. This report has been created using voice recognition software. It may contain minor errors which are inherent in voice recognition technology. Psychiatry Attending Attestation I assessed this patient and reviewed the case and plan of care with Torres Muhammad PA-C. I have reviewed the above documentation and I agree with the findings and treatment plan with the following updates. Patient was extremely disruptive last night and threatening staff members. Strong concerns for antisocial personality issues. Had to be placed in seclusion room and was also given emergency medications. Discussed with him about behavioral control. If he continues to make threats again staff members will consider filing for charges. At this time he is not stable to be discharged and will continue to observe for behavioral control. ASSESSMENT MDD (major depressive disorder), recurrent severe, without psychosis (HCC) PLAN Patient s symptoms show no change Attempt to develop insight Psycho-education conducted. Supportive Therapy conducted. Probable discharge is tbd Follow-up TBD Patient was evaluated by Torres Muhammad PA-C on the unit in person and I evaluated patient as Tele visit. This Virtual Visit was conducted with patient's consent. The patient is located in a state where I am licensed to provide care. Daron Villarreal is a 38 y.o. male being evaluated by a Virtual Visit (video visit) encounter to address concerns as mentioned above. A caregiver was present in the room along with the patient. Patient's consent was obtained for Tele visit. Patient is present at [facility] and I am physically present at my home in [place], [place] --Nav England MD on 06/10/2024 at 7:01 PM An electronic signature was used to authenticate this note. This report has been created using voice recognition software. It may contain minor errors which are inherent in voice recognition technology. Pt did not attend goal wrap up and relaxation group due to behaviors. 19:30 During bedside shift report , patient laying in bed, eyes closed, respirations easy and regular. 20:00 Returned to perform PM assessment and vitals. Patient laying in bed awake, calm and cooperative. Patients vitals within normal range, patient reported mood 10/10, Anxiety 10/10 and depression 10/10. Patient stated he had a bad dream about his dying in the fire. Patient denied suicidal and homicidal thoughts. Patients affect was flat/ blunt with fair eye contact and clear speech. Patient stated he would like something for his anxiety and that he would come out to get a snack and get his medications, no further needs or concerns were voiced at that time. 20:15 Patient is at [facility]es Station stating that he does not want to take the Atarax for his anxiety. Patient stated he needed something more than Atarax for his anxiety and if he didn't get it I will go the fuck off. Patient stated Matter of fact call the Doctor and tell him that I want to be discharged, I want the fuck out of here . 20:[address] Navarrete, verbal phone order per Dr. Navarrete for IM Haldol/Benadryl and seclusion room if necessary, at 20:25 message relayed to patient that he will have to wait until the next day to talk with Doctor regarding discharge and that Haldol was ordered if he does not want to take the Atarax. Patient then began to raise his voice and become visibly irritated, shouting and cussing at the Nurses, making verbal threats, stating I ain't going back to my fucking room, I'm gonna sit out here all night. 20:27 Call placed to [employer] [employer] 20:30 5 mg of Haldol and 50 mg of Benadryl were administered IM in left deltoid 20:37 Patient placed in Seclusion, continues to yell and curse at staff, states that he wants to fucking leave. He let me leave the last time when I wanted to. Nurse explained to patient that if he wants to come out of seclusion, he must lower his voice and not yell, he is disturbing the other patients, he must not be verbally or physically aggressive, he needs to stop yelling, shouting, cussing at the staff and he is to stop spitting, hitting, banging on the patel and door as well. 20:[address] Navarrete, updated on patient behaviors, stated can repeat medications if ineffective in 30 minutes at 20:40 Patient peed on floor, covered camera with mattress at 20:41 staff accompanied by campus police entered seclusion room, mattress removed patient continues to yell and verbally assault staff and campus police by stating you guys ain't no fucking police, you're fucking pussies, you ain't no fucking Nurse. 20:55 Patient spitting on and hitting camera with hand 20:57 Patient ripped up pillow and threw stuffing onto the floor 21:00 Patient trying to cover camera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
--- NOTE | 2024-11-29 19:55 | ED_ITS ---
HPI HPI - General Adult General Chief complaint: Extremity Injury, Upper Stated complaint: EXTREMITY ISSUE Time Seen by Provider: 11/29/24 19:36 Source: patient Mode of arrival: ambulance History of Present Illness HPI narrative: This 39 year old male is brought to the ER by EMS from [facility] after he signed out AGAINST MEDICAL ADVICE from that facility. The patient states that he is 10 days clean from alcohol. He was initially at [facility] for alcohol detox and then sent to the [facility]. The patient states he cannot stay at [facility] because of the environment there and how negative it is. He denies that he is having any alcohol withdrawal symptoms at this time. He was in this emergency department earlier today for a left hand fracture after punching a wall last week. The patient is very frustrated stating that [facility] would not give him his medications. He states that his doctor from [facility] had assured him that he was sending his medications to [facility] but [facility] threw them away. A ccording to [facility] they did not receive the fax for his medications. The patient states he is on gabapentin for nerve pain. He denies that he is suicidal or homicidal. He is not having any chest pain or shortness of breath. His plan is to go to [facility] where they have a long-term run by the mission where he can get IOP during the day. He requests something for pain in his hand and his routine medications that he has not been on for 1 day only. His OARRS does not show any activity since 09/18. We are awaiting a fax from [facility] for confirmation of his medications and to try to figure out what he is supposed to be on. He states he is from [place], [place] but doesnt have any friends or family that can pick him up tonight. Related Data Home Medications ?Medication ?Instructions ?Recorded ?Confirmed acetaminophen 500 mg tablet 500 mg PO BID PRN pain 11/29/24 11/29/24 buspirone 10 mg tablet 10 mg PO BID 11/29/24 11/29/24 hydroxyzine pamoate 25 mg capsule 25 mg PO Q6H 11/29/24 11/29/24 ibuprofen 800 mg tablet 800 mg PO Q12H PRN fever or pain 11/29/24 11/29/24 melatonin 10 mg capsule 10 mg PO BEDTIME PRN sleep 11/29/24 11/29/24 Previous Rx's ?Medication ?Instructions ?Recorded ibuprofen 800 mg tablet 800 mg PO Q8H PRN pain #20 tabs 11/29/24 Allergies Allergy/AdvReac Type Severity Reaction Status Date / Time No Known Drug Allergies Allergy Verified 11/29/24 08:46 Opioid HPI Opioid Management Most Recent Opioid Data: Last Pain Scale 7 11/29/24 19:53 11/29/24 Review of Systems ROS Status of ROS 10 or more systems reviewed and unremark able except as noted in history and below PFSH PFSH Social History Little interest or pleasure in doing things: not at all Feeling down, depressed, or hopeless: not at all Exam Narrative Exam Narrative: Vital signs and Nursing Notes reviewed: Patient is afebrile with a normal pulse, blood pressure is mildly elevated 130/93, he is not hypoxic with pulse ox of 97% on room air General: Awake, alert, oriented, overweight adult male, he does not appear to be intoxicated or under the influence of mood altering substances at this time, he is ambulatory in the room, speech is mildly pressured but he is cooperative HEENT: Normocephalic atraumatic, mucous membranes are moist and pink, eyes are clear, normal conjunctiva, vision is grossly intact Neck: Supple, no meningeal signs, no anterior or posterior cervical lymphadenopathy Chest: Lungs are clear to auscultation with good air entry, there is no wheezing rhonchi or rales appreciated no accessory muscle use, patient is speaking in complete sentences-no chest wall tenderness to palpation CVS: Regular rate and rhythm S1-S2, no murmurs rubs or gallops, pulses are brisk and equal bilaterally ABD: Soft, nondistended, nontender, no rebound guarding or rigidity, bowel sounds are normal, no pulsatile masses appreciated Extremities: Left hand is in a splint placed earlier in this emergency department for a boxer's fracture, fingers are warm and sensate. Capillary refill in the fingers is less than 2 seconds Skin: Normal in appearance without rash,pallor, petechiae or purpura Neuro: No focal deficits Psych: irritated due to recent events but otherwise cooperative. Does not appear to be under the influence of alcohol or drugs at this time. Cooperative. Denies suicidal or homicidal ideation Constitutional Vital Signs, click to edit/add: Last Vital Signs Temp 98.0 F 11/29/24 19:33 Pulse 87 11/29/24 19:33 Resp 18 11/29/24 19:33 BP 130/93 H 11/29/24 19:33 Pulse Ox 97 11/29/24 19:33 O2 Del Method Room Air 11/29/24 19:33 Course Vital Signs Vital signs: Vital Signs Temperature 98.0 F 11/29/24 19:33 Pulse Rate 87 11/29/24 19:33 Respiratory Rate 18 11/29/24 19:33 Blood Pressure 130/93 H 11/29/24 19:33 Pulse Oximetry 97 11/29/24 19:33 Oxygen Delivery Method Room Air 11/29/24 19:33 Temperature 98.0 F 11/29/24 19:33 Pulse Rate 87 11/29/24 19:33 Respiratory Rate 18 11/29/24 19:33 Blood Pressure 130/93 H 11/29/24 19:33 Pulse Oximetry 97 11/29/24 19:33 Oxygen Delivery Method Room Air 11/29/24 19:33 Medical Decision Making MDM Narrative Medical decision making narrative: I spoke with Deepika at [facility]. The patient was admitted to [facility] yesterday from [facility]. The patient's medications had not been faxed from [facility] to [facility] this afternoon before the patient became irate and stated that he wanted to leave [facility] and sign out AGAINST MEDICAL ADVICE stating that he wanted to leave for mental health purposes. They were allegedly going to fax the information from [facility] regarding his medications to us but we have not received the fax yet. Patient states he will not go back to [facility]. I did receive a fax from them that he became irate and threatening to the staff there. He left of his own volition requesting to come to this emergency department. He states that he had an explosive episode related to his Bipolar disease. I explained to him that I do not have a long-term to place him in at this time but he can remain in the lobby overnight. He states this is acceptable to him and he will call his insurance company in the morning for transport to [place], [place] where he intends on checking into a long-term. He will be given 2 norco for his hand pain . Discharge Plan Discharge Chief Complaint: Extremity Injury, Upper Clinical Impression: Fracture of fifth metacarpal bone of left hand, Homeless single person Patient Disposition: Home, Self-Care Time of Disposition Decision: 21:36 Condition: Good Mode of Transportation: Private Vehicle Prescriptions / Home Meds: No Action buspirone 10 mg tablet 10 mg PO BID acetaminophen 500 mg tablet 500 mg PO BID PRN (Reason: pain) hydroxyzine pamoate 25 mg capsule 25 mg PO Q6H ibuprofen 800 mg tablet 800 mg PO Q12H PRN (Reason: fever or pain) melatonin 10 mg capsule 10 mg PO BEDTIME PRN (Reason: sleep) ibuprofen 800 mg tablet 800 mg PO Q8H PRN (Reason: pain) Qty: 20 0RF Print Language: South African Instructions: Hand Fracture (ED) Referrals: Elías Villareal NP [Primary Care Provider] - 1 week Discharge Date/Time: 11/29/24 21:57
[2024-11-29] MEDS: HYDROCODONE/ACET 5-325 MG TABLET 1 TAB PO (20:15)
[2024-11-29] MEDS: HYDROCODONE/ACET 5-325 MG TABLET 2 TAB PO (21:55)
== END 2024-11-29 21:57 | disposition home or self-care (01) ==
PROVIDERS: Emergency Provider Emergency Medicine; PCP Nurse Practitioner Primary Care
DX: S62.307A Unspecified fracture of fifth metacarpal bone, left hand, initial encounter for closed fracture (principal); W22.01XA Walked into wall, initial encounter; Z59.00 Homelessness unspecified; F31.9 Bipolar disorder, unspecified
CPT/HCPCS: 99283

== ENCOUNTER 2024-11-30 00:13 | Emergency (ER) | payer MEDICAID, SELFPAY ==
[2024-11-30 00:20] VITALS: BP 122/83; PULSE 82; TEMP 36.9; O2SAT 98; BMI 38.4
--- NOTE | 2024-11-30 00:29 | ED_ITS ---
HPI - Anxiety General Chief Complaint: Anxiety Stated Complaint: ANXIETY Time Seen by Provider: 11/30/24 00:22 Source: patient Mode of arrival: walk-in Limitations: no limitations History of Present Illness HPI narrative: This 39-year-old male with a history of bipolar disorder who was recently seen in this emergency department after he checked himself out of [facility] because he did not like the negative environment at [facility] and is planning to go to a homeless penitentiary in [facility] this morning was awaiting a ride in the [facility] when he checked back in stating that he had severe anxiety. Patient had been given a [place] because he has a right hand fracture and 2 [place] to go. I told him that I would take the [place] back and put them in a bottle for him when he was ready to leave if he wanted something for his anxiety. At that point he stated he would go back to the [facility]. He has not verbalized any suicidal or homicidal ideation. Related Data Home Medications ?Medication ?Instructions ?Recorded ?Confirmed acetaminophen 500 mg tablet 500 mg PO BID PRN pain 11/29/24 11/29/24 buspirone 10 mg tablet 10 mg PO BID 11/29/24 11/29/24 hydroxyzine pamoate 25 mg capsule 25 mg PO Q6H 11/29/24 11/29/24 ibuprofen 800 mg tablet 800 mg PO Q12H PRN fever or pain 11/29/24 11/29/24 melatonin 10 mg capsule 10 mg PO BEDTIME PRN sleep 11/29/24 11/29/24 Previous Rx's ?Medication ?Instructions ?Recorded ibuprofen 800 mg tablet 800 mg PO Q8H PRN pain #20 tabs 11/29/24 Allergies Allergy/AdvReac Type Severity Reaction Status Date / Time No Known Drug Allergies Allergy Verified 11/29/24 08:46 Review of Systems ROS Status of ROS 10 or more systems reviewed and unremark able except as noted in history and below PFSH PFSH Social History Little interest or pleasure in doing things: not at all Feeling down, depressed, or hopeless: not at all Exam Narrative Exam Narrative: Vital signs and Nursing Notes reviewed: Vital signs are stable General: Awake, alert, oriented, no acute distress, Neuro: No focal deficit Psych: Does not appear to be responding to internal stimuli, does not appear intoxicated, demanding of something strong for his anxiety Constitutional Vital Signs, click to edit/add: Last Vital Signs Temp 98.5 F 11/30/24 00:20 Pulse 82 11/30/24 00:20 Resp 16 11/30/24 00:20 BP 122/83 11/30/24 00:20 Pulse Ox 98 11/30/24 00:20 O2 Del Method Room Air 11/30/24 00:20 Course Vital Signs Vital signs: Vital Signs Temperature 98.5 F 11/30/24 00:20 Pulse Rate 82 11/30/24 00:20 Respiratory Rate 16 11/30/24 00:20 Blood Pressure 122/83 11/30/24 00:20 Pulse Oximetry 98 11/30/24 00:20 Oxygen Delivery Method Room Air 11/30/24 00:20 Temperature 98.5 F 11/30/24 00:20 Pulse Rate 82 11/30/24 00:20 Respiratory Rate 16 11/30/24 00:20 Blood Pressure 122/83 11/30/24 00:20 Pulse Oximetry 98 11/30/24 00:20 Oxygen Delivery Method Room Air 11/30/24 00:20 MDM - Anxiety MDM Narrative Medical decision making narrative: This 39-year-old male with a history of bipolar disorder who was recently at [facility] but left [facility] because he did not like the negative environment after a 10-day stay at [facility] for alcohol detox who was seen earlier in the emergency department twice once to have his left hand wrapped for a boxer's fracture and then again for pain medication and was discharged to the [facility] he could not find a ride home and plans to go to a penitentiary tomorrow morning requested to be seen for his anxiety. He told the nurse during his intake that he needed something strong for his anxiety or he was going to snap. He was not seen immediately due to other patients in the emergency department. He is resting comfortably in room 11. I told him that I would take the 2 [place] that he had been given earlier and hold them for him until he was released if he expected me to give him something for his anxiety as I was not comfortable giving him a total of 3 [place] and then anxiety medications. He at that point left the room he was in and return to the [facility]. Discharge Plan Discharge Chief Complaint: Anxiety Clinical Impression: Homeless single person Patient Disposition: Home, Self-Care Time of Disposition Decision: 01:30 Condition: Good Prescriptions / Home Meds: No Action buspirone 10 mg tablet 10 mg PO BID acetaminophen 500 mg tablet 500 mg PO BID PRN (Reason: pain) hydroxyzine pamoate 25 mg capsule 25 mg PO Q6H ibuprofen 800 mg tablet 800 mg PO Q12H PRN (Reason: fever or pain) melatonin 10 mg capsule 10 mg PO BEDTIME PRN (Reason: sleep) ibuprofen 800 mg tablet 800 mg PO Q8H PRN (Reason: pain) Qty: 20 0RF Print Language: Croatian Referrals: Elías Villareal NP [Primary Care Provider] - 1 week
--- OUTSIDE RECORDS SUMMARY | 2024-11-30 00:32 | XMS_ITS | CCD ---
Author Organization [facility] Care Team Providers Care Physical Therapist Assistant Name Role Phone Annmarie Blevins Primary Care Provider ANNMARIE BLEVINS Primary Care Unavailable REGINALDO STEVENSON Attending Unavailable ANNMARIE BLEVINS Primary Care Unavailable UBALDO SMALL Attending Unavailable Annmarie Blevins MD Primary Care Provider [phone] Isis Obregon APRN, CNP Primary Care Provider [phone] Unavailable Primary Care Provider UnavailDO [place] [facility] Provider NO FAMILY, PHYSICIAN Primary Care Provider Unava [...] Wilberto Morton MD Attending Unava ilable Ebosele BREAST BUFFER-REGIONAL CLIMATE CHANGE ANALYST, Jonathan Primary Care Unavail able Diekman BREAST BUFFER-REGIONAL CLIMATE CHANGE ANALYST, Rivka Olivares Consulting Unavail able Vale Guerrero DO Attending Unavailable Vale Guerrero DO Admitting Unavailable Ebosele BREAST BUFFER-REGIONAL CLIMATE CHANGE ANALYST, Jonathan Primary Care Unavail able Diekman BREAST BUFFER-REGIONAL CLIMATE CHANGE ANALYST, Rivka Olivares Consulting Unavail able Jordan Herron MD Attending Unavail able Gopal MEEK, Jordan Wilde Admitting Unavail able Ebosele BREAST BUFFER-REGIONAL CLIMATE CHANGE ANALYST, Jonathan Primary Care Unavail able Leslie Ng Admitting Unavailab le Ebosele BREAST BUFFER-REGIONAL CLIMATE CHANGE ANALYST, Jonathan Primary Care Unavail able Leslie Ng Attending Unavailab racquel Moreno MD, Janelle Randolph Attending Unavailable Ebosele BREAST BUFFER-REGIONAL CLIMATE CHANGE ANALYST, Jonathan Primary Care Unavail able Sarah Gaitan PA-C Attending Unavaila ble Ebosele BREAST BUFFER-REGIONAL CLIMATE CHANGE ANALYST, [place] [facility] Unavail able Lenny MEEK, Tai Marie Attending Unav ailable Ebosele BREAST BUFFER-REGIONAL CLIMATE CHANGE ANALYST, Jonathan Primary Care Unavail able Samantha Rivera Consulting Unavailable Selene MEEK, Wilberto Webb Attending Unava ilable Ebosele BREAST BUFFER-REGIONAL CLIMATE CHANGE ANALYST, Jonathan Primary Care Unavail able Pebbles Ruiz DO Attending Unava ilable Ebosele BREAST BUFFER-REGIONAL CLIMATE CHANGE ANALYST, Jonathan Primary Care Unavail able Janelle Moreno MD Attending Unavailable Ebosele BREAST BUFFER-REGIONAL CLIMATE CHANGE ANALYST, Jonathan Primary Care Unavail able Ebosele BREAST BUFFER-REGIONAL CLIMATE CHANGE ANALYST, Jonathan Primary Care Unavail able Leslie Ng Attending Unavailab Leslie Francis Admitting Unavailab le Ebosele BREAST BUFFER-REGIONAL CLIMATE CHANGE ANALYST, Jonathan Attending Unavail able Ebosele BREAST BUFFER-REGIONAL CLIMATE CHANGE ANALYST, Jonathan Primary Care Unavail able Samantha Rivera Attending Unavailable Davon Bernal MD Admitting Unavailable Ebosele BREAST BUFFER-REGIONAL CLIMATE CHANGE ANALYST, Jonathan Primary Care Unavail able Ebosele BREAST BUFFER - REGIONAL CLIMATE CHANGE ANALYST, Jonathan Primary Care Provider No Family, Physician Primary Care Unavailable [facility] JONATHAN Primary Care Unavailable MAI SCHUSTER Attending [...] Admitting Unavailable LAURYN, ABHI Consulting Unavailable PHYSICIANS, [facility] Consulting Kelsey vailable SEEMA, JONATHAN Primary Care Unavailable RAMIREZ FARFAN Attending Unavailable CECIL CALABRESE Admitting Unavailable PHYSICIANS, [facility] Consulting Kelsey vailable EBOSELE, JONATHAN Primary Care Unavailable FILIBERTO KIRBY Attending Unavailable ARAR, SYEDA H Consulting Unavailable RAVEN, GHADA P Admitting Unavailable RAVEN, GHADA P Attending Unavailable RAVEN, GHADA P Referring Unavailable EBOSELE, JONATHAN Primary Care Unavailable EBOSELE, JONATHAN Primary Care Unavailable THERON QUIROZ Attending Unavailable ARAR, SYEDA H Admitting Unavailable PHYSICIANS, [facility] Consulting Kelsey vailable EBNJE, JONATHAN Referring Unavailable [...] to adverse reactions to drug (disorder) [facility] Repository Medications Current Medications Medication Drug Class(es) [...] chew. Start: 06-26-2020 [facility] hours as needed for [...] 20 mg/ml oral suspension (1 source) Uncompetitive W-knxliw-E-aspartat e Receptor Antagonist, Sigma-1 Agonist Start: 09-17-2024 [...] Differentialon 11-21-2024 Basophils (Bld) [#/Vol] 0.13 10*3/uL [facility] Basophils/100 WBC (Bld) 2 % 0 - 2 % [facility] Eosinophils (Bld) [#/Vol] 0.19 10*3/uL [facility] Eosinophils/100 WBC (Bld) 2 % 1 - 4 % [facility] Erythrocyte distribution width (RBC) [Ratio] 12.7 % 11.8 - 14.4 % [facility] Hematocrit (Bld) [Volume fraction] 50.7 % High 40.7 - 50.3 % [facility] Hemoglobin (Bld) [Mass/Vol] 17.5 g/dL High 13.0 - 17.0 g/dL [facility] Immature granulocytes (Bld) [#/Vol] [facility] Immature granulocytes/100 WBC (Bld) 0 % 0 [facility] Interpretation and review of laboratory results Abnormal [facility] Lymphocytes/100 WBC (Bld) 34 % 24 - 43 % [facility] Lymphocytes/100 WBC (Bld) 2.71 % [facility] MCH (RBC) [Entitic mass] 29.6 pg 25.2 - 33.5 pg [facility] MCHC (RBC) [Mass/Vol] 34.5 g/dL 28.4 - 34.8 g/dL [facility] MCV (RBC) [Entitic vol] 85.8 fL 82.6 - 102.9 fL [facility] Monocytes/100 WBC (Bld) 8 % 3 - 12 % [facility] Monocytes/100 WBC (Bld) 0.67 % [facility] Neutrophils/100 WBC (Bld) 54 % 36 - 65 % [facility] Nucleated RBC/100 WBC (Bld) [Ratio] 0.0 % 0.0 per 100 WBC [facility] Platelet mean volume (Bld) [Entitic vol] 9.4 fL 8.1 - 13.5 fL [facility] Platelets (Bld) [#/Vol] 302 10*3/uL [facility] RBC (Bld) [#/Vol] 5.91 10*6/uL High 4.21 - 5.7 7 m/uL [facility] Segmented neutrophils/100 WBC (Bld) 4.37 % [facility] WBC other (Bld) [#/Vol] 8.1 [facility] CBC with Diffon 11-21-2024 Abs. Basophil 0.13 k/uL Normal 0.00-0.20 [facility] Comment on above: Performed By: #### E DTOX, MG, CP, CDP #### [facility] [address] [place] [address] [facility]: Kael Tran MD Abs.Imm.Granulocyte <0.03 Normal 0.00-0.30 [facility] Comment on above: Performed By: #### E DTOX, MG, CP, CDP #### [facility] [address] [place] [address] [facility]: Kael Tran MD Abs.Neutrophil (Seg) 4.37 k/uL Normal 1.50-8.10 [facility] Comment on above: Performed By: #### E DTOX, MG, CP, CDP #### [facility] [address] [place] [address] [facility]: Kael Tran MD Basophils/100 WBC (Bld) 2 % Normal 0-2 [facility] Comment on above: Performed By: #### E DTOX, MG, CP, CDP #### [facility] [address] [place] [address] [facility]: Kael Tran MD Eosinophils (Bld) [#/Vol] 0.19 10*3/uL Normal 0.00-0.44 [facility] Comment on above: Performed By: #### E DTOX, MG, CP, CDP #### [address] [address] [facility]: Kael Tran MD Eosinophils/100 WBC (Bld) 2 % Normal 1-4 [facility] Comment on above: Performed By: #### E DTOX, MG, CP, CDP #### [address] [address] [facility]: Kael Tran MD Erythrocyte distribution width (RBC) [Ratio] 12.7 % Normal 11.8-14.4 [facility] Comment on above: Performed By: #### E DTOX, MG, CP, CDP #### [facility] [address] [place] [address] [facility]: Kael Tran MD Hematocrit (Bld) [Volume fraction] 50.7 % High 40.7-50.3 [facility] Comment on above: Performed By: #### E DTOX, MG, CP, CDP #### [facility] [address] [place] [address] [facility]: Kael Tran MD Hemoglobin (Bld) [Mass/Vol] 17.5 g/dL High 13.0-17.0 [facility] Comment on above: Performed By: #### E DTOX, MG, CP, CDP #### [facility] [address] [place] [address] [facility]: Kael Tran MD Immature granulocytes/100 WBC (Bld) 0 % Normal 0 [facility] Comment on above: Performed By: #### E DTOX, MG, CP, CDP #### [facility] [address] [place] [address] [facility]: Kael Tran MD Lymphocytes (Bld) [#/Vol] 2.71 10*3/uL Normal 1.10-3.70 [facility] Comment on above: Performed By: #### E DTOX, MG, CP, CDP #### [place] [address] [facility]: Kael Tran MD Lymphocytes/100 WBC (Bld) 34 % Normal 24-43 [facility] Comment on above: Performed By: #### E DTOX, MG, CP, CDP #### [place] [address] [facility]: Kael Tran MD MCH (RBC) [Entitic mass] 29.6 pg Normal 25.2-33.5 [facility] Comment on above: Performed By: #### E DTOX, MG, CP, CDP #### [place] [address] [facility]: Kael Tran MD MCHC (RBC) [Mass/Vol] 34.5 g/dL Normal 28.4-34.8 [facility] Comment on above: Performed By: #### E DTOX, MG, CP, CDP #### [place] [address] [facility]: Kael Tran MD MCV (RBC) [Entitic vol] 85.8 fL Normal 82.6-102.9 [facility] Comment on above: Performed By: #### E DTOX, MG, CP, CDP #### [place] [address] [facility]: Kael Tran MD Monocytes (Bld) [#/Vol] 0.67 10*3/uL Normal 0.10-1.20 [facility] Comment on above: Performed By: #### E DTOX, MG, CP, CDP #### [place] [address] [facility]: Kael Tran MD Monocytes/100 WBC (Bld) 8 % Normal 3-12 [facility] Comment on above: Performed By: #### E DTOX, MG, CP, CDP #### [address] [address] [facility]: Kael Tran MD Neutrophil (Seg) 54 % Normal 36-65 [facility] Comment on above: Performed By: #### E DTOX, MG, CP, CDP #### [place] [address] [facility]: Kael Tran MD NRBC Automated 0.0 per 100 WBC Normal 0.0 [facility] Comment on above: Performed By: #### E DTOX, MG, CP, CDP #### [place] [address] [facility]: Kael Tran MD Platelet mean volume (Bld) [Entitic vol] 9.4 fL Normal 8.1-13.5 [facility] Comment on above: Performed By: #### E DTOX, MG, CP, CDP #### [place] [address] [facility]: Kael Tran MD Platelets (Bld) [#/Vol] 302 10*3/uL Normal 138-453 [facility] Comment on above: Performed By: #### E DTOX, MG, CP, CDP #### [place] [address] [facility]: Kael Tran MD RBC (Bld) [#/Vol] 5.91 10*6/uL High 4.21-5.77 [facility] Comment on above: Performed By: #### E DTOX, MG, CP, CDP #### [place] [address] [facility]: Kael Tran MD WBC (Bld) [#/Vol] 8.1 10*3/uL Normal 3.5-11.3 [facility] Comment on above: Performed By: #### E DTOX, MG, CP, CDP #### [facility] [address] [place] [address] [facility] Home: Kael Tran MD [facility] 11-21-2024 Albumin [Mass/Vol] 4.8 g/dL 3.5 - 5.2 g/dL [facility] Albumin/Globulin [Mass ratio] 1.7 {ratio} 1.0 - 2.5 [facility] ALP [Catalytic activity/Vol] 62 U/L 40 - 129 U/L [facility] ALT [Catalytic activity/Vol] 40 U/L 10 - 50 U/L [facility] Anion gap [Moles/Vol] 15 mmol/L 9 - 16 mmol/L [facility] AST [Catalytic activity/Vol] 30 U/L 10 - 50 U/L [facility] Bilirubin [Mass/Vol] 1.5 mg/dL High 0.0 - 1 .2 mg/dL [facility] Calcium [Mass/Vol] 9.8 mg/dL 8.6 - 10. 4 mg/dL [facility] Chloride [Moles/Vol] 103 mmol/L 98 - 10 7 mmol/L [facility] CO2 [Moles/Vol] 21 mmol/L 20 - 31 mmol/L [facility] Creatinine [Mass/Vol] 0.9 mg/dL 0.7 - 1.2 mg/dL [facility] Est, Glom Filt Rate - PINF [facility] Comment on above: These results are not [...] [Mass/Vol] 94 mg/dL 74 - 99 mg/dL [facility] Potassium [Moles/Vol] 3.9 mmol/L 3.7 - 5.3 mmol/L [facility] Protein [Mass/Vol] 7.7 g/dL 6.6 - 8.7 g/dL [facility] Sodium [Moles/Vol] 139 mmol/L 136 - 145 mmol/L [facility] Urea nitrogen [Mass/Vol] 9 mg/dL 6 - 20 mg/dL [facility] Comp Metabolic Profon 2024 Albumin [Mass/Vol] 4.8 g/dL Normal 3.5-5.2 [facility] Comment on above: Performed By: #### E DTOX, MG, CP, CDP #### [facility] [address] [place] [address] [facility]: Kael Tran MD Albumin/Glob Ratio 1.7 Normal 1.0-2.5 [facility] Comment on above: Performed By: #### E DTOX, MG, CP, CDP #### [facility] [employer] [address] [place] [address] [facility]: Kael Tran MD Alkaline Phos 62 U/L Normal 40-129 [facility] Comment on above: Performed By: #### E DTOX, MG, CP, CDP #### [facility] [address] [place] [address] [facility]: Kael Tran MD ALT [Catalytic activity/Vol] 40 U/L Normal 10-50 [facility] Comment on above: Performed By: #### E DTOX, MG, CP, CDP #### [facility] [address] [place] [address] [facility]: Kael Tran MD Anion gap [Moles/Vol] 15 mmol/L Normal 9-16 [facility] Comment on above: Performed By: #### E DTOX, MG, CP, CDP #### [facility] [address] [place] [address] [facility]: Kael Tran MD AST [Catalytic activity/Vol] 30 U/L Normal 10-50 [facility] Comment on above: Performed By: #### E DTOX, MG, CP, CDP #### [address] [address] [facility]: Kael Tran MD Bilirubin [Mass/Vol] 1.5 mg/dL High 0.0-1.2 [facility] Comment on above: Performed By: #### E DTOX, MG, CP, CDP #### [facility] [address] [place] [address] [facility]: Kael Tran MD Calcium [Mass/Vol] 9.8 mg/dL Normal 8.6-10.4 [facility] Comment on above: Performed By: #### E DTOX, MG, CP, CDP #### [address] [address] [facility]: Kael Tran MD Chloride [Moles/Vol] 103 mmol/L Normal 98-107 [facility] Comment on above: Performed By: #### E DTOX, MG, CP, CDP #### [address] [address] [facility]: Kael Tran MD CO2 [Moles/Vol] 21 mmol/L Normal 20-31 [facility] Comment on above: Performed By: #### E DTOX, MG, CP, CDP #### [facility] [address] [place] [address] [facility]: Kael Tran MD Creatinine [Mass/Vol] 0.9 mg/dL Normal 0.7-1.2 [facility] Comment on above: Performed By: #### E DTOX, MG, CP, CDP #### [facility] [employer] [address] [place] [address] [facility]: Kael Tran MD GFR/1.73 sq M.predicted among non-blacks MDRD (S/P/Bld) [Vol rate/Area] mL/min/{1.73_m2} Normal >60 [facility] Comment on above: Result Comment: These [...] #### E DTOX, MG, CP, CDP #### [facility] [address] [place] [address] [facility]: Kael Tran MD Glucose [Mass/Vol] 94 mg/dL Normal 74-99 [facility] Comment on above: Performed By: #### E DTOX, MG, CP, CDP #### [address] [address] [facility]: Kael Tran MD Potassium [Moles/Vol] 3.9 mmol/L Normal 3.7-5.3 [facility] Comment on above: Performed By: #### E DTOX, MG, CP, CDP #### [facility] [address] [place] [address] [facility]: Kael Tran MD Protein [Mass/Vol] 7.7 g/dL Normal 6.6-8.7 [facility] Comment on above: Performed By: #### E DTOX, MG, CP, CDP #### [facility] [address] [place] [address] [facility]: Kael Tran MD Sodium [Moles/Vol] 139 mmol/L Normal 136-145 [facility] Comment on above: Performed By: #### E DTOX, MG, CP, CDP #### [facility] [address] [place] [address] [facility]: Kael Tran MD Urea nitrogen [Mass/Vol] 9 mg/dL Normal 6-20 [facility] Comment on above: Performed By: #### E DTOX, MG, CP, CDP #### [facility] [address] [place] [address] [facility]: Kael Tran MD Drug Scr, Abuse, Uron 2024 Barbiturate(s),Ur Positive Abnormal NEG [facility] Comment on above: Result Comment: Cuto ff: 200 ng/ml Performed By: #### E DTOX, MG, CP, CDP #### [facility] [address] [place] [address] [facility]: Kael Tran MD Benzodiazepine(s) Positive Abnormal NEG [facility] Comment on above: Result Comment: Cuto ff: 200 ng/ml Performed By: #### E DTOX, MG, CP, CDP #### [facility] [address] [place] [address] [facility]: Kael Tran MD Cannabinoid(s),Ur Positive Abnormal NE[facility] Comment on above: Result Comment: Cuto ff: 50 ng/ml Performed By: #### E DTOX, MG, CP, CDP #### [facility] [address] [place] [address] [facility]: Kael Tran MD Interpretive Info Assay provides rapid clinical screening only. Presumptive positive results for Normal [facility] Comment on above: Result Comment: lega l purposes should be confirmed by another method. To request confirmation, please call the lab within 7 days of sample submission. Performed By: #### E DTOX, MG, CP, CDP #### [facility] [address] [place] [address] [facility]: Kael Tran MD Amphetamine(s),Ur Negative Normal NEG [facility] Comment on above: Result Comment: Cuto ff: 1000 ng/mL Performed By: #### E DTOX, MG, CP, CDP #### [address] [address] [facility]: Kael Tran MD Cocaine Metabolite Negative Normal NEG [facility] Comment on above: Result Comment: Cuto ff: 300 ng/ml Performed By: #### E DTOX, MG, CP, CDP #### [address] [address] [facility]: Kael Tran MD Fentanyl, Urine Negative Normal NEG [facility] Comment on above: Result Comment: Cuto ff: 5 ng/ml Performed By: #### E DTOX, MG, CP, CDP #### [address] [address] [facility]: Kael Tran MD Methadone Ql (U) Negative Normal NEG [facility] Comment on above: Result Comment: Cuto ff: 300 ng/ml Performed By: #### E DTOX, MG, CP, CDP #### [address] [address] [facility]: Kael Tran MD Opiate(s), Ur Negative Normal NEG [facility] Comment on above: Result Comment: Cuto ff: 300 ng/ml Performed By: #### E DTOX, MG, CP, CDP #### [address] [address] [facility]: Kael Tran MD Oxycodone, Urine Negative Normal NEG [facility] Comment on above: Result Comment: Cuto ff: 100 ng/ml Performed By: #### E DTOX, MG, CP, CDP #### [address] [address] [facility]: Kael Tran MD Phencyclidine, Ur Negative Normal NEG [facility] Comment on above: Result Comment: Cuto ff: 25 ng/ml Performed By: #### E DTOX, MG, CP, CDP #### [facility] [address] [place] [address] [facility]: Kael Tran MD No Panel Informationon 11-21 Interpretation and review of laboratory results Abnormal [facility] TOX SCR, BLD, EDon 5 Acetaminophen [Mass/Vol] ug/mL Low 10 - 30 ug/mL [facility] Ethanol percent <0.010 NINF - 0.010 % [facility] Ethanolamine [Mass/Vol] <10 NINF - 10 mg/dL [facility] Salicylates [Mass/Vol] mg/dL 0.0 - 10.0 mg/dL [facility] Tox Scr, Bld, EDon 5 Acetaminophen [Mass/Vol] ug/mL Low 10-30 [facility] Comment on above: Performed By: #### E DTOX, MG, CP, CDP #### [facility] [address] [place] [address] [facility]: Kael Tran MD Ethanol [Mass/Vol] mg/dL Normal <10 [facility] Comment on above: Performed By: #### E DTOX, MG, CP, CDP #### [facility] [address] [place] [address] [facility]: Kael Tran MD Ethanol percent <0.010 Normal <0.010 [facility] Comment on above: Performed By: #### E DTOX, MG, CP, CDP #### [facility] [address] [place] [phone] [facility]: Kael Tran MD Salicylate <0.5 Normal 0.0-10.0 [facility] Comment on above: Performed By: #### E DTOX, MG, CP, CDP #### [facility] [address] [place] [phone] [facility]: Kael Tran MD Urine Drug Screenon 11-21-19 25 Amphetamines Ql (U) Negative NEGATIVE [facility] Comment on [...] 50 ng/ml Cocaine Ql (U) Negative NEGATIVE [facility] Comment on above: Cutoff: [...] Ql (U) Negative NEGATIVE [facility] Comment on above: Cutoff: 100 ng/ml Phencyclidine Ql (U) Negative NEGATIVE [facility] Comment on above: Cutoff: 25 ng/ml Test Information Assay provides rapid clinical screening only. Presumptive positive results for legal purposes should be confirmed by another method. To request confirmation, please call the lab within 7 days of sample submission. [facility] Lipid 1996 panelon 5 Cholesterol [Mass/Vol] 215 mg/dL High 150-200 [facility] Comment on above: Performed By: #### C SUSAN, [facility], 3298-7, 4024-6, 5643-2 #### [facility] ([id number]) [address] [place] [address] #### 99360-7 #### [facility] ([id number]) [address] [place] [address], [address] [place] [address] Cholesterol in HDL [Mass/Vol] 44 mg/dL Normal >39 [facility] Comment on above: Result Comment: HDL <40 mg/dL - High Risk HDL > or = 40mg/dL- Desirable HDL >60 mg/dL - Negative Risk Performed By: #### C BCA, BMP, 8-7, 4024-6, 5643-2 #### [facility] ([id number]) [address] [place] [address] #### 24383-2 #### [facility] ([id number]) [address] [address], [address] [place] [address] Cholesterol in LDL [Mass/Vol] 116 mg/dL Normal <130 [facility] Comment on above: Result Comment: LDL <100 mg/dL - Desirable LDL >160 mg/dL - High Risk Performed By: #### C BCA, BMP, 3297-7, 4-6, 5643-2 #### [facility] ([id number]) [address] [place] [address] #### 24829-5 #### [facility] ([id number]) [address] [place] [address] Cholesterol in VLDL [Mass/Vol] 55 mg/dL High 0-30 [facility] Comment on above: Performed By: #### C BCA, BMP, 3297-7, 4-6, 5643-2 #### [facility] ([id number]) [address] [place] [address] #### 22746-1 #### [facility] ([id number]) [address] [place] [address], [address] [place] [address] CHOLESTEROL:HDL 4.9 Normal 1.0-5.0 [facility] Comment on above: Performed By: #### C BCA, BMP, 8-7, 4024-6, 5643-2 #### [facility] ([id number]) [address] [place] [address] #### 62520-0 #### [facility] [facility] ([id number]) [address], [address] [place] [address] Triglyceride [Mass/Vol] 275 mg/dL High 27-150 [facility] Comment on above: Performed By: #### C BCA, BMP, 3298-7, 4024-6, 5643-2 #### [facility] ([id number]) [address] [place] [address] #### 00084-8 #### [facility] ([id number]) [address], [address] [place] [address] ACETAMINOPHENon 10-30-2024 Acetaminophen [Mass/Vol] ug/mL Low 10.0-30.0 [facility] Comment on above: Result Comment: Refe rence ranges are for therapeutic limits. Performed By: #### C BCA, BMP, 3298-7, 4024-6, 5643-2 #### [facility] ([id number]) [address] [place] [address] #### 00068-4 #### [facility] ([id number]) [address], [address] [place] [address] CBC AND AUTO DIFFon 10-30-19 25 ABSOLUTE BASOPHIL 0.1 X10E9/L Normal 0.0-0.2 [facility] Comment on above: Performed By: #### C BCA, BMP, 3298-7, 4024-6, 5643-2 #### [facility] ([id number]) [address] [place] [address] #### 52188-6 #### [facility] ([id number]) [address], [address] [place] [address] ABSOLUTE NEUTROPHIL 4.3 X10E9/L Normal 1.5-6.6 [facility] Comment on above: Performed By: #### C BCA, BMP, 3298-7, 4024-6, 5643-2 #### [facility] ([id number]) [address] [place] [address] #### 31817-2 #### [facility] ([id number]) [address], [address] [place] [address] Basophils/100 WBC (Bld) 0.7 % Normal [facility] Comment on above: Performed By: #### C BCA, BMP, 3298-7, 4024-6, 5643-2 #### [facility] ([id number]) [address] [place] [address] #### 11880-4 #### [facility] ([id number]) [address], [address] [place] [address] Eosinophils (Bld) [#/Vol] 0.3 10*3/uL Normal 0.0-0.4 [facility] Comment on above: Performed By: #### C BCA, BMP, 3298-7, 4024-6, 5643-2 #### [facility] ([id number]) [address] [place] [address] #### 51629-6 #### [facility] ([id number]) [address], [address] [place] [address] Eosinophils/100 WBC (Bld) 3.4 % Normal [facility] Comment on above: Performed By: #### C BCA, BMP, 3298-7, 4024-6, 5643-2 #### [facility] ([id number]) [address] [place] [address] #### 93654-2 #### [facility] ([id number]) [address], [address] [place] [address] Erythrocyte distribution width (RBC) [Ratio] 13.8 % Normal 11.5-15.0 [facility] Comment on above: Performed By: #### C BCA, BMP, 3298-7, 4024-6, 5643-2 #### [facility] ([id number]) [address] [place] [address] #### 83609-2 #### [facility] ([id number]) [address], [address] [place] [address] Hematocrit (Bld) [Volume fraction] 49.3 % High 39-49 [facility] Comment on above: Performed By: #### C BCA, BMP, 3298-7, 4024-6, 5643-2 #### [facility] ([id number]) [address] [place] [address] #### 44112-9 #### [facility] ([id number]) [address], [address] [place] [address] Hemoglobin (Bld) [Mass/Vol] 17.0 g/dL Normal 13.0-17.0 [facility] Comment on above: Performed By: #### C BCA, BMP, 3298-7, 4024-6, 5643-2 #### [facility] ([id number]) [address] [place] [address] #### 24561-4 #### [facility] ([id number]) [address], [address] [place] [address] Lymphocytes (Bld) [#/Vol] 3.3 10*3/uL Normal 1.0-3.5 [facility] Comment on above: Performed By: #### C BCA, BMP, 3298-7, 4024-6, 5643-2 #### [facility] ([id number]) [address] [place] [address] #### 94751-7 #### [facility] ([id number]) [address], [address] [place] [address] Lymphocytes/100 WBC (Bld) 38.2 % Normal [facility] Comment on above: Performed By: #### C BCA, BMP, 3298-7, 4024-6, 5643-2 #### [facility] ([id number]) [address] [place] [address] #### 55099-3 #### [facility] ([id number]) [address], [address] [place] [address] MCH (RBC) [Entitic mass] 30.2 pg Normal 27-34 [facility] Comment on above: Performed By: #### C BCA, BMP, 3298-7, 4024-6, 5643-2 #### [facility] ([id number]) [address] [place] [address] #### 89863-4 #### [facility] ([id number]) [address], [address] [place] [address] MCHC (RBC) [Mass/Vol] 34.4 g/dL Normal 32-36 [facility] Comment on above: Performed By: #### C BCA, BMP, 3298-7, 4024-6, 5643-2 #### [facility] ([id number]) [address] [place] [address] #### 39677-0 #### [facility] ([id number]) [address], [address] [place] [address] MCV (RBC) [Entitic vol] 88 fL Normal 80-100 [facility] Comment on above: Performed By: #### C BCA, BMP, 3298-7, 4024-6, 5643-2 #### [facility] ([id number]) [address] [place] [address] #### 09046-6 #### [facility] ([id number]) [address], [address] [place] [address] Monocytes (Bld) [#/Vol] 0.6 10*3/uL Normal 0-0.9 [facility] Comment on above: Performed By: #### C BCA, BMP, 3298-7, 4024-6, 5643-2 #### [facility] ([id number]) [address] [place] [address] #### 04565-9 #### [facility] ([id number]) [address], [address] [place] [address] Monocytes/100 WBC (Bld) 6.6 % Normal [facility] Comment on above: Performed By: #### C BCA, BMP, 3298-7, 4024-6, 5643-2 #### [facility] ([id number]) [address] [place] [address] #### 04405-2 #### [facility] ([id number]) [address], [address] [place] [address] Neutrophils/100 WBC (Bld) 51.1 % Normal [facility] Comment on above: Performed By: #### C BCA, BMP, 3298-7, 4024-6, 5643-2 #### [facility] ([id number]) [address] [place] [address] #### 86238-9 #### [facility] ([id number]) [address], [address] [place] [address] Platelet mean volume (Bld) [Entitic vol] 7.6 fL Normal 7-12 [facility] Comment on above: Performed By: #### C BCA, BMP, 3298-7, 4024-6, 5643-2 #### [facility] ([id number]) [address] [place] [address] #### 99607-2 #### [facility] ([id number]) [address], [address] [place] [address] Platelets (Bld) [#/Vol] 291 10*3/uL Normal 150-450 [facility] Comment on above: Performed By: #### C BCA, BMP, 3298-7, 4024-6, 5643-2 #### [facility] ([id number]) [address] [place] [address] #### 29699-1 #### [facility] ([id number]) [address], [address] [place] [address] RBC COUNT 5.63 X10E12/L Normal 4.10-5.70 [facility] Comment on above: Performed By: #### C BCA, BMP, 3298-7, 4024-6, 5643-2 #### [facility] ([id number]) [address] [place] [address] #### 48330-4 #### [facility] ([id number]) [address] [facility], [address] [place] [address] WBC (Bld) [#/Vol] 8.5 10*3/uL Normal 4.0-11.0 [facility] Comment on above: Performed By: #### C BCA, BMP, 3298-7, 4024-6, 5643-2 #### [facility] ([id number]) [address] [place] [address] #### 53174-8 #### [facility] ([id number]) [address] [facility], [address] [place] [address] COMPREHENSIVE METABOLIC PANE Per 10-30-2024 Albumin [Mass/Vol] 4.4 g/dL Normal 3.2-5.3 [facility] Comment on above: Performed By: #### C BCA, BMP, 3298-7, 4024-6, 5643-2 #### [facility] ([id number]) [address] [place] [address] #### 06819-9 #### [facility] ([id number]) [address] [facility], [address] [place] [address] ALP [Catalytic activity/Vol] 48 U/L Normal 39-130 [facility] Comment on above: Performed By: #### C BCA, BMP, 3298-7, 4024-6, 5643-2 #### [facility] ([id number]) [address] [place] [address] #### 40018-5 #### [facility] ([id number]) [address] [facility], [address] [place] [address] ALT [Catalytic activity/Vol] 23 U/L Normal 0-40 [facility] Comment on above: Performed By: #### C BCA, BMP, 3298-7, 4024-6, 5643-2 #### [facility] ([id number]) [address] [place] [address] #### 13922-8 #### [facility] ([id number]) [address] [facility], [address] [place] [address] Anion gap [Moles/Vol] 10 mmol/L Normal 5-15 [facility] Comment on above: Performed By: #### C BCA, BMP, 3298-7, 4024-6, 5643-2 #### [facility] ([id number]) [address] [place] [address] #### 41678-2 #### [facility] ([id number]) [address] [facility], [address] [place] [address] AST [Catalytic activity/Vol] 23 U/L Normal 0-41 [facility] Comment on above: Performed By: #### C BCA, BMP, 3298-7, 4024-6, 5643-2 #### [facility] ([id number]) [address] [place] [address]84[address] #### 65369-1 #### [facility] ([id number]) [address] [facility], [address] [place] [address] Bilirubin [Mass/Vol] 1.0 mg/dL Normal 0.3-1.2 [facility] Comment on above: Performed By: #### C BCA, BMP, 3298-7, 4024-6, 5643-2 #### [facility] ([id number]) [address] [place] [address]67 #### 60328-6 #### [facility] ([id number]) [address] [place] [address] Calcium [Mass/Vol] 9.5 mg/dL Normal 8.5-10.5 [facility] Comment on above: Performed By: #### C BCA, BMP, 3298-7, 4024-6, 5643-2 #### [facility] ([id number]) [address] [place] [address] #### 57608-9 #### [facility] ([id number]) [address] [place] [address] Chloride [Moles/Vol] 104 mmol/L Normal 98-109 [facility] Comment on above: Performed By: #### C BCA, BMP, 3298-7, 4024-6, 5643-2 #### [facility] ([id number]) [address] [place] [address] #### 18497-0 #### [facility] ([id number]) [address] [place] [address] CO2 [Moles/Vol] 24 mmol/L Normal 22-32 [facility] Comment on above: Performed By: #### C BCA, BMP, 3298-7, 4024-6, 5643-2 #### [facility] ([id number]) [address] [place] [address] 9[address]11 #### 99760-0 #### [facility] ([id number]) [address] [place] [address] Creatinine [Mass/Vol] 0.94 mg/dL Normal 0.60-1.30 [facility] Comment on above: Result Comment: METH OD TRACEABLE TO IDMS STANDARD Performed By: #### C ANA DAVIS, 3298-7, 4024-6, 5643-2 #### [facility] ([id number]) [address] [place] [address] 91624 #### 67886-1 #### [facility] ([id number]) [address] [facility], [facility] [address] [place] [address] eGFR (CKD-EPI) NON-RACE DEPENDENT >90 Normal >59 [facility] Comment on above: Result Comment: Reported eGFR is based on the CKD-EPI 2020 equation that does not use a race coefficient. Performed By: #### C ANA DAVIS, 3298-7, 4024-6, 5643-2 #### [facility] ([id number]) [address] [place] [address]15[address] #### 86961-1 #### [facility] ([id number]) [address] [facility] [address] [place] [address] Glucose [Mass/Vol] 89 mg/dL Normal 65-99 [facility] Comment on above: Performed By: #### C ANA DAVIS, 3298-7, 4024-6, 5643-2 #### [facility] ([id number]) [address] [place] [address] 78573 #### 57151-3 #### [facility] ([id number]) [address] [facility], [address] [place] [address] Potassium [Moles/Vol] 4.0 mmol/L Normal 3.5-5.0 [facility] Comment on above: Performed By: #### C ANA DAVIS, 3298-7, 4024-6, 5643-2 #### [facility] ([id number]) [address] [place] [address]180 #### 52304-1 #### [facility] ([id number]) [address] [place] [address], [facility] [address] [place] [address] Protein [Mass/Vol] 6.9 g/dL Normal 6.0-8.0 [facility] Comment on above: Performed By: #### C ANA DAVIS, 3298-7, 4-6, 5643-2 #### [facility] ([id number]) [address] [place] [address] 29444 #### 94401-7 #### [facility] ([id number]) [address] [place] [address], [address] [place] [address] Sodium [Moles/Vol] 138 mmol/L Normal 134-146 [facility] Comment on above: Performed By: #### C ANA DAVIS, 3298-7, 4-6, 5643-2 #### [facility] ([id number]) [address] [place] [address] 27569 #### 79732-5 #### [facility] ([id number]) [address] [place] [address] Urea nitrogen [Mass/Vol] 14 mg/dL Normal 5-23 [facility] Comment on above: Performed By: #### C ANA DAVIS, 3298-7, 4024-6, 5643-2 #### [facility] ([id number]) [address] [place] [address] 01006 #### 74690-8 #### [facility] ([id number]) [address] [place] [address], [address] [address] DRUG SCREEN, URINEon 025 AMPHETAMINE/METHAMP Negative Normal [facility] Comment on above: Result Comment: AMPH /METH screening cut off = 1000 ng/mL Performed By: #### C ANA DAVIS, 8-7, 4024-6, 5643-2 #### [facility] ([id number]) [address] [place] [address] #### 85553-8 #### [facility] ([id number]) [address] [place] [address] BARBITURATES Negative Normal NEG [facility] Comment on above: Result Comment: Yenifer iturates screening cut off value = 200 ng/mL Performed By: #### C BCA, BMP, 3298-7, 4024-6, 5643-2 #### [facility] ([id number]) [address] [place] [address] 24268 #### 85970-9 #### [facility] ([id number]) [address] [facility], [address] [place] [address] BENZODIAZEPINES Positive Abnormal NEG [facility] Comment on above: Result Comment: Conf irmation available upon request. Benzodiazepines screening cut off value = 200 ng/mL Performed By: #### C BCA, BMP, 3298-7, 4024-6, 5643-2 #### [facility] ([id number]) [address] [place] [address] #### 85130-8 #### [facility] ([id number]) [address] [facility], [address] [place] [address] CANNABINOIDS Positive Abnormal NEG [facility] Comment on above: Result Comment: Conf irmation available upon request. Cannabinoids/THC screening cut off value = 50 ng/mL Performed By: #### C BCA, BMP, 3298-7, 4024-6, 5643-2 #### [facility] ([id number]) [address] [place] [address]696 #### 63835-8 #### [facility] ([id number]) [address] [facility], [address] [place] [address] COCAINE METABOLITE Negative Normal NEG [facility] Comment on above: Result Comment: Coca ine screening cut off value = 300 ng/mL Performed By: #### C BCA, BMP, 3298-7, 4024-6, 5643-2 #### [facility] ([id number]) [address] [place] [address] #### 65176-3 #### [facility] ([id number]) [address] [facility], [address] [place] [address] ECSTASY Negative Normal NEG [facility] Comment on above: Result Comment: Ecst asy screening cut off value = 500 ng/mL This report is intended for use in clinical monitoring or management of patients. Performed By: #### C BCA, BMP, 3298-7, 4024-6, 5643-2 #### [facility] ([id number]) [address] [place] [address] 00003 #### 88522-5 #### [facility] ([id number]) [address] [facility], [address] [place] [address] METHADONE Negative Normal NEG [facility] Comment on above: Result Comment: Meth adone screening cut off value = 300 ng/mL. Performed By: #### C BCA, BMP, 3298-7, 4024-6, 5643-2 #### [facility] ([id number]) [address] [place] [address] 90331 #### 99312-6 #### [facility] ([id number]) [address] [facility], [address] [place] [address] OPIATES Negative Normal [facility] Comment on above: Result Comment: Opia rolando screening cut off value = 300 ng/mL NOTE: This test is used for the detection of codeine, hydrocodone (>1000 ng/mL), morphine and hydromorphone (>900 ng/mL) in urine. Performed By: #### C BCA, BMP, 3298-7, 4024-6, 5643-2 #### [facility] ([id number]) [address] [place] [address]38 #### 33378-1 #### [facility] ([id number]) [address] [facility], [address] [place] [address] OXYCODONE Negative Normal NEG [facility] Comment on above: Result Comment: Oxyc odone screening cut off value = 300 ng/mL NOTE: This test is used for the detection of oxycodone and oxymorphone in urine. Performed By: #### C SUSAN BMP, 3298-7, 4024-6, 5643-2 #### [facility] ([id number]) [address] [place] [address]26 #### 44056-1 #### [facility] ([id number]) [address] [facility], [address] [place] [address] PHENCYCLIDINE Negative Normal NEG [facility] Comment on above: Result Comment: Phen cyclidine screening cut off value = 25 ng/mL Performed By: #### C ANA DAVIS, 3298-7, 4024-6, 5643-2 #### [facility] ([id number]) [address] [place] [address] 65[address] #### 13296-1 #### [facility] ([id number]) [address] [facility], [address] [place] [address] ETHANOLon 10-30-2024 Ethanol [Mass/Vol] mg/dL Normal 0.00-0.08 [facility] Comment on above: Result Comment: This report is intended for use in clinical monitoring or management of patients. Performed By: #### C SUSAN, BMP, 3298-7, 4024-6, 5643-2 #### [facility] ([id number]) [address] [place] [address] 27992 #### 82154-7 #### [facility] ([id number]) [address] [facility], [address] [place] [address] MAGNESIUMon 10-30-2024 Magnesium [Mass/Vol] 2.2 mg/dL Normal 1.8-2.6 [facility] Comment on above: Performed By: #### C BCA, BMP, 3298-7, 4024-6, 5643-2 #### [facility] ([id number]) [address] [place] [address] #### 78361-9 #### [facility] ([id number]) [address] [place] [address], [address] [place] [address] SARS/FLU A+B/RSV by NAAT/Mol ecularon 10-30-2024 SARS/FLU [...] operators who are performing tests using either [employer] or [employer] systems and is limited to laboratories that [...] repeat. Fact Sheet for Healthcare Providers: https://www.fda.gov/media/ 419656/download Fact Sheet for Patients: https://www.fda.gov/media/ 047384/download Normal [facility] Comment on above: Performed By: #### C SUSAN BMP, 3298-7, 4024-6, 5643-2 #### [facility] ([id number]) [address] [place] [address] #### 46245-9 #### [facility] ([id number]) [address] [place] [address], [address] [place] [address] Salicylates [Mass/Vol]on SALICYLATE <2.5 Normal 2.0-25.0 [facility] Comment on above: Result Comment: Refe rence ranges are for therapeutic limits. Performed By: #### C SUSAN, BMP, 3298-7, 4024-6, 5643-2 #### [facility] ([id number]) [address] [place] [address]11 #### 29946-7 #### [facility] ([id number]) [address] [place] [address], [address] [place] [address] THYROID PROFILEon 10-30-2024 Free T4 [Mass/Vol] 0.88 ng/dL Normal 0.61-1.60 [facility] Comment on above: Performed By: #### C SUSAN, BMP, 8-7, 4024-6, 5643-2 #### [facility] ([id number]) [address] [place] [address] #### 61549-2 #### [facility] ([id number]) [address] [place] [address], [address] [place] [address] TSH 2.81 uIU/mL Normal 0.49-4.67 [facility] Comment on above: Performed By: #### C SUSAN, BMP, 3298-7, 4024-6, 5643-2 #### [facility] ([id number]) [address] [place] [address] 11509 #### 65397-0 #### [facility] ([id number]) [address] [place] [address], [address] [place] [address] Tricyclic antidepressants [M ass/Vol]on 10-30-2024 TRICYCLICS Negative Normal NEG [facility] Comment on above: Performed By: #### C BCA, BMP, 3298-7, 4024-6, 5643-2 #### [facility] ([id number]) [address] [place] [address]70[address] #### 20091-5 #### [facility] ([id number]) [address] [place] [address], [address] [place] [address] URN MACROSCOPIC NURon 2024 BILIRUBIN CATIE Negative Normal NEG [facility] Comment on above: Performed By: #### C BCA, BMP, 8-7, 4024-6, 5643-2 #### [facility] ([id number]) [address] [place] [address] #### 32408-1 #### [facility] ([id number]) [address] [place] [address], [address] [place] [address] BLOOD/HGB CATIE Negative Normal NEG [facility] Comment on above: Performed By: #### C BCA, BMP, 3298-7, 4024-6, 5643-2 #### [facility] ([id number]) [address] [place] [address] #### 89942-6 #### [facility] ([id number]) [address] [place] [address], [address] [place] [address] GLUCOSE CATIE Negative Normal NEG [facility] Comment on above: Performed By: #### C BCA, BMP, 3298-7, 4024-6, 5643-2 #### [facility] ([id number]) [address] [place] [address] #### 84819-8 #### [facility] ([id number]) [address], [address] [place] [address] KETONES CATIE Negative Normal NEG [facility] Comment on above: Performed By: #### C BCA, BMP, 3298-7, 4024-6, 5643-2 #### [facility] ([id number]) [address] [place] [address] #### 70301-1 #### [facility] ([id number]) [address], [address] [place] [address] LEUKOCYTE ESTERASE CATIE Negative Normal NEG [facility] Comment on above: Performed By: #### C BCA, BMP, 3298-7, 4024-6, 5643-2 #### [facility] ([id number]) [address] [place] [address] #### 37319-8 #### [facility] ([id number]) [address], [address] [place] [address] NITRITE CATIE Negative Normal NEG [facility] Comment on above: Performed By: #### C BCA, BMP, 8-7, 4024-6, 5643-2 #### [facility] ([id number]) [address] [place] [address] #### 92825-2 #### [facility] ([id number]) [address], [address] [place] [address] PH CATIE 6.0 Normal 5.0-8.5 [facility] Comment on above: Performed By: #### C BCA, BMP, 3298-7, 4024-6, 5643-2 #### [facility] ([id number]) [address] [place] [address] #### 27906-7 #### [facility] ([id number]) [address], [address] [place] [address] PROTEIN CATIE Negative Normal NEG [facility] Comment on above: Performed By: #### C BCA, BMP, 3298-7, 4024-6, 5643-2 #### [facility] ([id number]) [address] [place] [address] #### [id number] #### [facility] ([id number]) [address], [address] [place] [address] SPECIFIC GRAVITY CATIE 1.025 Normal 1.003-1.[address] [facility] Comment on above: Performed By: #### C BCA, BMP, 3298-7, 4024-6, 5643-2 #### [facility] ([id number]) [address] [place] [address] #### [id number] #### [facility] ([id number]) [address], [address] [place] [address] UROBILINOGEN CATIE 0.2 eu/dL Normal <1.1 [facility] Comment on above: Performed By: #### C BCA, BMP, 3298-7, 4024-6, 5643-2 #### [facility] ([id number]) [address] [place] [address] #### [id number] #### [facility] ([id number]) [address], [address] [place] [address] XR CHEST 1 VWon 10-30-2024 XR CHEST 1 VW XR CHEST 1 VW Single view chest History:SOB Difficulty breathing, shortness of breath Comparison: 09/09/2024 Findings: Single portable view of the chest. Stable cardiomediastinal silhouette. There is no focal opacity, effusion or pneumothorax. Impression: No definitive acute cardiopulmonary process. Finalized by Marcio Marsh MD on 10/30/2024 6:24 PM Normal [facility] COVID-19 & Influenza Comboon 09-19-2024 Influenza A by PCR Not detected NOT DETECTED [facility] Influenza B by PCR Not detected NOT DETECTED [facility] Comment on above: Performed at [facility] [address] [place] [address] SARS-CoV-2 (COVID-19) RNA BRITTANY+probe Ql (Unsp spec) Not detected NOT DETECTED [facility] Comment on above: Not Detected results do [...] B in nasopharyngeal and nasal swab specimens. [facility] PCACC SARS-COV-2 & INFLUENZA A/[facility] 09-19-2024 FLU A PCR PCACC Not detected Normal NOT DETECTED [facility] Comment on above: Performed By: #### P CFLU #### [facility] [address] [facility] [address] [place] [address] FLU B PCR PCACC Not detected Normal NOT DETECTED [facility] Comment on above: Performed By: #### P CFLU #### [facility] [address] [address] SARS-CoV-2 (COVID-19) RNA BRITTANY+probe Ql (Unsp spec) Not detected Normal NOT DETECTED [facility] Comment on above: Result Comment: Not Detected [...] specimens. Performed By: #### P CFLU #### [facility] [address] [facility] [address] [facility] [address] ACETAMINOPHENon 09-17-2024 Acetaminophen [Mass/Vol] ug/mL Normal 0.0-20.0 [facility] Comment on above: Performed By: #### U R_CS #### [facility] [address] [place] [address] ANION GAP PCACCon 09-17-2024 Anion gap [Moles/Vol] 11.0 mmol/L Normal 8.0-16.0 [facility] Comment on above: ANION GAP = Sodium - (Chloride + CO2) Performed at [facility] [address] [place] [address] Result Comment: ANIO N GAP = Sodium -(Chloride + CO2) Performed By: #### P MG, PANIO, PETOH, PCMP, EGFRP, PCCBC ####[facility] [place] [address]#### ASAT, ACTM ####[facility] [address] [place] [address] CBC with Auto Differentialon 09-17-2024 Basophils (Bld) [...] [facility] Comment on above: Performed at [facility] [address] [place] [address] Immature granulocytes/100 WBC (Bld) 0 % Bon [...] vol] 87.6 fL 80.0 - 94.0 fL [facility] Monocytes 0.5 [facility] Monocytes/100 WBC (Bld) 7.4 % 0.0 - 12.0 % [facility] Neutrophils Absolute 3.8 [facility] Platelet distribution width (Bld) [Ratio] 12.8 % 11.5 - 14.9 % [facility] Platelet mean volume (Bld) [Entitic vol] 9.1 fL Low 9.4 - 12.4 fL [facility] Platelets (Bld) [#/Vol] 231 10*3/uL [facility] RBC (Bld) [#/Vol] 5.07 10*6/uL [facility] Segmented neutrophils/100 WBC (Bld) 56.3 % 43.0 - 75.0 % [facility] WBC (Bld) [#/Vol] 6.8 10*3/uL [facility] CBC, AUTOMATEDon 09-17-2024 ABS BASOPHILS 0.0 thou/mm3 Normal 0.0-0.1 [facility] Comment on above: Performed By: #### P MG, PANIO, PETOH, PCMP, EGFRP, PCCBC ####[place] [address]#### ASAT, ACTM ####[facility] [address] [place] [address] ABS EOSINOPHILS 0.2 thou/mm3 Normal 0.0-0.5 [facility] Comment on above: Performed By: #### P MG, PANIO, PETOH, PCMP, EGFRP, PCCBC ####[place] [address]#### ASAT, ACTM ####[place] [address] [place] [address] ABS IMMATURE GRANS (IG) 0.00 thou/mm3 Normal 0.00-0.07 [facility] Comment on above: Performed By: #### P MG, PANIO, PETOH, PCMP, EGFRP, PCCBC ####[facility] [place] [address]#### ASAT, ACTM ####[facility] [address] [place] [address] ABS LYMPHOCYTES 2.2 thou/mm3 Normal 1.0-4.8 [facility] Comment on above: Performed By: #### P MG, PANIO, PETOH, PCMP, EGFRP, PCCBC ####[facility] [place] [address]#### ASAT, ACTM ####[facility] [address] [place] [address] ABS MONOCYTES 0.5 thou/mm3 Normal 0.3-1.3 [facility] Comment on above: Performed By: #### P MG, PANIO, PETOH, PCMP, EGFRP, PCCBC ####[facility] [place] [address]#### ASAT, ACTM ####[facility] I[address] [place] [address] ABS NEUTROPHILS 3.8 thou/mm3 Normal 1.8-7.7 [facility] Comment on above: Performed By: #### P MG, PANIO, PETOH, PCMP, EGFRP, PCCBC ####[facility] [place] [address]#### ASAT, ACTM ####[facility] [address] [place] [address] Basophils/100 WBC (Bld) 0.7 % Normal 0.0-3.0 [facility] Comment on above: Performed By: #### P MG, PANIO, PETOH, PCMP, EGFRP, PCCBC ####[facility] [place] [address]#### ASAT, ACTM ####[facility] [address]so[address]hydu[address] [place] [address] Eosinophils/100 WBC (Bld) 3.4 % Normal 0.0-4.0 [facility] Comment on above: Performed By: #### P MG, PANIO, PETOH, PCMP, EGFRP, PCCBC ####[facility] [place] [address]#### ASAT, ACTM ####[facility] [address] [place] [address] Erythrocyte distribution width (RBC) [Ratio] 12.8 % Normal 11.5-14.9 [facility] Comment on above: Performed By: #### P MG, PANIO, PETOH, PCMP, EGFRP, PCCBC ####[facility] [place] [address]#### ASAT, ACTM ####[facility] [address] [place] [address] Hematocrit (Bld) [Volume fraction] 44.4 % Normal 42.0-52.0 [facility] Comment on above: Performed By: #### P MG, PANIO, PETOH, PCMP, EGFRP, PCCBC ####[facility] [place] [address]#### ASAT, ACTM ####[facility] [address] [place] [address] Hemoglobin (Bld) [Mass/Vol] 15.1 g/dL Normal 14.0-18.0 [facility] Comment on above: Performed By: #### P MG, PANIO, PETOH, PCMP, EGFRP, PCCBC ####[facility] [place] [address]#### ASAT, ACTM ####[facility] [address]prjsrtkitug[address] [place] [address] IMMATURE GRANS (IG) 0 % Normal [facility] Comment on above: Performed By: #### P MG, PANIO, PETOH, PCMP, EGFRP, PCCBC ####[place] [address]#### ASAT, ACTM ####[facility] [address] [place] [id number] Lymphocytes/100 WBC (Bld) 32.1 % Normal 15.0-47.0 [facility] Comment on above: Performed By: #### P MG, PANIO, PETOH, PCMP, EGFRP, PCCBC ####[facility] [place] [address]#### ASAT, ACTM ####[facility] [address]sc[address] [place] [address] MCH (RBC) [Entitic mass] 29.8 pg Normal 26.0-32.0 [facility] Comment on above: Performed By: #### P MG, PANIO, PETOH, PCMP, EGFRP, PCCBC ####[place] [address] [place] [address]#### ASAT, ACTM ####[facility] Ghgsmgviatho[address] [place] [address] MCHC (RBC) [Mass/Vol] 34.0 g/dL Normal 31.0-35.0 [facility] Comment on above: Performed By: #### P MG, PANIO, PETOH, PCMP, EGFRP, PCCBC ####[facility] [place] [address]#### ASAT, ACTM ####[facility] [address] [place] [address] MCV (RBC) [Entitic vol] 87.6 fL Normal 80.0-94.0 [facility] Comment on above: Performed By: #### P MG, PANIO, PETOH, PCMP, EGFRP, PCCBC ####[facility] [place] [address]#### ASAT, ACTM ####[facility] [address]irszb[address]ae[address] [place] [phone] Monocytes/100 WBC (Bld) 7.4 % Normal 0.0-12.0 [facility] Comment on above: Performed By: #### P MG, PANIO, PETOH, PCMP, EGFRP, PCCBC ####[place] [address]#### ASAT, ACTM ####[facility] Wmry[address]rpstq[address] [place] [address] PLATELET 231 thou/mm3 Normal 130-400 [facility] Comment on above: Performed By: #### P MG, PANIO, PETOH, PCMP, EGFRP, PCCBC ####[facility] [place] [address]#### ASAT, ACTM ####[facility] [address]abtd[address] [place] [address] Platelet mean volume (Bld) [Entitic vol] 9.1 fL Low 9.4-12.4 [facility] Comment on above: Performed By: #### P MG, PANIO, PETOH, PCMP, EGFRP, PCCBC ####[facility] [place] [address]#### ASAT, ACTM ####[facility] [address] [place] [address] RBC 5.07 mill/mm3 Normal 4.50-6.10 [facility] Comment on above: Performed By: #### P MG, PANIO, PETOH, PCMP, EGFRP, PCCBC ####[facility] [place] [address]#### ASAT, ACTM ####[facility] [address] [place] [address] SEGS 56.3 % Normal 43.0-75.0 [facility] Comment on above: Performed By: #### P MG, PANIO, PETOH, PCMP, EGFRP, PCCBC ####[facility] [place] [address]#### ASAT, ACTM ####[facility] [address] [place] [address] WBC 6.8 thou/mm3 Normal 4.8-10.8 [facility] Comment on above: Performed By: #### P MG, PANIO, PETOH, PCMP, EGFRP, PCCBC ####[facility] [place] [address]#### ASAT, ACTM ####[facility] Cdkbuyzjjkcl160 [place] [address] COMP. METABOLIC PANELon 11-2 Albumin [Mass/Vol] 3.4 g/dL Normal 3.4-5.0 [facility] Comment on above: Performed By: #### P MG, PANIO, PETOH, PCMP, EGFRP, PCCBC ####[place] [address]#### ASAT, ACTM ####[facility] [address] [place] [address] ALP [Catalytic activity/Vol] 66 U/L Normal 46-116 [facility] Comment on above: Performed By: #### P MG, PANIO, PETOH, PCMP, EGFRP, PCCBC ####[place] [address]#### ASAT, ACTM ####[place] [address] ALT [Catalytic activity/Vol] 36 U/L Normal 14-63 [facility] Comment on above: Result Comment: Sulf asalazine and Sulfapyridine may interfere with testing and cause false results. For patients taking these medications, it is recommended that venipuncture occur prior to adminstra- tion of these drugs. Performed By: #### P MG, PANIO, PETOH, PCMP, EGFRP, PCCBC ####[place] [address]#### ASAT, ACTM ####[place] [address] AST [Catalytic activity/Vol] 21 U/L Normal 15-37 [facility] Comment on above: Result Comment: Sulf asalazine and Sulfapyridine may interfere with testing and cause false results. For patients taking these medications, it is recommended that venipuncture occur prior to adminstra- tion of these drugs. Performed By: #### P MG, PANIO, PETOH, PCMP, EGFRP, PCCBC ####[place] [address]#### ASAT, ACTM ####[facility] [address]ztez[address]xur[address] [place] [address] Bilirubin [Mass/Vol] 0.7 mg/dL Normal 0.2-1.0 [facility] Comment on above: Performed By: #### P MG, PANIO, PETOH, PCMP, EGFRP, PCCBC ####[facility] [place] [address]#### ASAT, ACTM ####[facility] Eisjpmqdonal[address] [place] [address] Calcium [Mass/Vol] 8.8 mg/dL Normal 8.5-10.1 [facility] Comment on above: Performed By: #### P MG, PANIO, PETOH, PCMP, EGFRP, PCCBC ####[facility] [place] [address]#### ASAT, ACTM ####[facility] Tkqemtsftnmi8[address] [place] [address] Chloride [Moles/Vol] 102 mmol/L Normal 98-107 [facility] Comment on above: Performed By: #### P MG, PANIO, PETOH, PCMP, EGFRP, PCCBC ####[facility] [place] [address]#### ASAT, ACTM ####[facility] Svqqlahhmkfz[address] [place] [address] CO2 [Moles/Vol] 24 mmol/L Normal 21-32 [facility] Comment on above: Performed By: #### P MG, PANIO, PETOH, PCMP, EGFRP, PCCBC ####[facility] [place] [address]#### ASAT, ACTM ####[facility] [address]ij[address]aexppv[address] [place] [address] Creatinine [Mass/Vol] 0.8 mg/dL Normal 0.6-1.3 [facility] Comment on above: Performed By: #### P MG, PANIO, PETOH, PCMP, EGFRP, PCCBC ####[facility] [place] [address]#### ASAT, ACTM ####[facility] Bjtmnfnlbqpk[address] [place] [address] Glucose [Mass/Vol] 106 mg/dL Normal 74-106 [facility] Comment on above: Sulfasalazine and Olmedo lfapyridine [...] P MG, PANIO, PETOH, PCMP, EGFRP, PCCBC ####[place] [address]#### ASAT, ACTM ####[facility] Crogkhlfcpaz[address] [place] [address] Potassium [Moles/Vol] 3.8 mmol/L Normal 3.5-5.1 [facility] Comment on above: Performed By: #### P MG, PANIO, PETOH, PCMP, EGFRP, PCCBC ####[place] [address]#### ASAT, ACTM ####[facility] Mgbkwdnchjkz[address] [place] [id number] Protein [Mass/Vol] 6.8 g/dL Normal 6.4-8.2 [facility] Comment on above: Performed By: #### P MG, PANIO, PETOH, PCMP, EGFRP, PCCBC ####[place] [address]#### ASAT, ACTM ####[facility] Beokyjxqdldg[address] [place] [phone] Sodium [Moles/Vol] 137 mmol/L Normal 136-145 [facility] Comment on above: Performed By: #### P MG, PANIO, PETOH, PCMP, EGFRP, PCCBC ####[place] [address]#### ASAT, ACTM ####[facility] Bvpdtswjroai[address] [place] [address] Urea nitrogen [Mass/Vol] 7 mg/dL Normal 7-18 [facility] Comment on above: Performed By: #### P MG, PANIO, PETOH, PCMP, EGFRP, PCCBC ####[facility] [place] [address]#### ASAT, ACTM ####[facility] Hibhvxnocltb[address] [place] [id number] Comprehensive metabolic 2000 panelon 09-17-2024 Albumin BCP dye [Mass/Vol] 3.4 [facility] ALT With P-5'-P [Catalytic activity/Vol] 36 U/L 14 - 63 U/L [facility] Comment on above: Sulfasalazine and Olmedo lfapyridine may interfere with testing and cause false results. For patients taking these medications, it is recommended that venipuncture occur prior to adminstra- tion of these drugs. Performed at [facility] [address] [place] [address] AST With P-5'-P [Catalytic activity/Vol] 21 U/L 15 - 37 U/L [facility] Comment on above: Sulfasalazine and Olmedo lfapyridine [...] HARGROVE MD ([id number]) on 09/18/2024 12:17:02 AM [email or web address] TestByDateTime?PatientID=[id number]&Date=17-09-2024&T arnoldo=[id number]&Test Type=ECG&Site=3&OutputType =PDF&Ext=PDF Normal [facility] ETHYL ALCOHOLon 09-17-2024 ANALYZED BY BURHE [facility] Comment on above: Performed By: #### P MG, PANIO, PETOH, PCMP, EGFRP, PCCBC ####[facility] [employer] W[address] [address]#### ASAT, ACTM ####[facility] [address]ukgs[address] [place] [address] DATE DRAWN 09/17/24 [facility] Comment on above: Performed By: #### P MG, PANIO, PETOH, PCMP, EGFRP, PCCBC ####[facility] [employer] [facility] Ba[address]yvj[address] [address]#### ASAT, ACTM ####[facility] Dtxidquqtybd508 [place] [address] METHODOLOGY XPAND [facility] Comment on above: Performed By: #### P MG, PANIO, PETOH, PCMP, EGFRP, PCCBC ####[facility] [address]tf[address] [address]#### ASAT, ACTM ####[facility] Cxkfwnwralxe915 [place] [address] SPECIMEN DRAWN BY rn [facility] Comment on above: Performed By: #### P MG, PANIO, PETOH, PCMP, EGFRP, PCCBC ####[facility] [address] [address]#### ASAT, ACTM ####[facility] [address]fezsu[address] [place] [address] TIME DRAWN 1420 [facility] Comment on above: Performed By: #### P MG, PANIO, PETOH, PCMP, EGFRP, PCCBC ####[facility] Ofjipm[address] [address]#### ASAT, ACTM ####[facility] Bmemmvrxklqg471 [place] [address] ETHYL ALCOHOL 0.04 % (gm/dl) Normal 0.00 [facility] Comment on above: Performed By: #### P MG, PANIO, PETOH, PCMP, EGFRP, PCCBC ####[facility] [place] [id number]#### ASAT, ACTM ####[facility] Fpetfzdddffm576 [place] [address] ETOHon 09-17-2024 ANALYZED BY: CHAGO [facility] Date Of Collection 09/17/24 [facility] Comment on above: Performed at [facility] [address] [place] [address] Drawn By rn [facility] Stio Ethanol [Mass/Vol] 0.04 mg/dL 0.00 % (gm/dl) [facility] Methodology XPAND [facility] Time Collected 1420 [facility] GFR, ESTIMATED, PCACCon 08-27 ESTIMATED GFR, PCACC > 90 Normal >60 [facility] Comment on above: Result Comment: Yobani atric [...] P MG, PANIO, PETOH, PCMP, EGFRP, PCCBC ####[facility] [place] [id number]#### ASAT, ACTM ####[facility] Mpjkdhiezoag[address] [place] [id number] Glomerular Filtration Rate, Estimatedon 09-17-2024 GFR/1.73 sq M.predicted MDRD (S/P/Bld) [Vol rate/Area] mL/min/{1.73_m2} - PINF [facility] Comment on above: Pediatric calculator link [email or web address].[email or web address].org/professionals/kdoqi/gfr_calculatorped [...] that affects renal tubular secretion. Performed at [facility] [address] [place] [address] MAGNESIUMon 09-17-2024 Magnesium [Mass/Vol] 2.1 mg/dL Normal 1.8-2.4 [facility] Comment on above: Performed at [facility] [address] [place] [address] Performed By: #### P MG, PANIO, PETOH, PCMP, EGFRP, PCCBC ####[facility] [address] [address]#### ASAT, ACTM ####[facility] [address] [place] [address] No Panel Informationon 09-17 [facility] SALICYLATEon 09-17-2024 SALICYLATE < 0.3 Low 2.0-10.0 [facility] Comment on above: Performed By: #### U R_CS #### [facility] [address] [place] [address] .eGFRon 09-14-2024 GFR/1.73 sq M.predicted MDRD (S/P/Bld) [Vol rate/Area] mL/min/{1.73_m2} Normal >=60 [facility] Comment on above: Result Comment: [facility] Laboratories have implemented the eGFR calculation approach [...] = years Performed By: #### E GFR ####[address] [address] Abstracton 09-14-2024 Abstract [id number] Frantz Villarreal C 1985 M Date Provider Department Center 09/14/2024 NENITA HIRSCH [facility] Medical C Family History Problem Relation [...] Grandmother Paternal Grandfather Paternal Grandmother Other Normal [facility] CMPon 09-14-2024 Albumin [Mass/Vol] 3.9 g/dL Normal 3.2-4.9 [facility] Comment on above: Performed By: #### C OMP ####[address] [address] Albumin/Globulin [Mass ratio] 1.3 {ratio} Normal 1.1-2.2 [facility] Comment on above: Performed By: #### C OMP ####[place] [address] [place] [address] Alk Phos 47 IU/L Normal 32-91 [facility] Comment on above: Performed By: #### C OMP ####[place] [address] [place] [address] ALT [Catalytic activity/Vol] 31 U/L Normal 17-63 [facility] Comment on above: Performed By: #### C OMP ####[address] [place] [address] Anion gap [Moles/Vol] 9 mmol/L Normal 4-12 [facility] Comment on above: Performed By: #### C OMP ####[address] [place] [address] AST [Catalytic activity/Vol] 27 U/L Normal 15-41 [facility] Comment on above: Performed By: #### C OMP ####[address] [address] Bili Total 1.1 mg/dL Normal 0.3-1.2 [facility] Comment on above: Performed By: #### C OMP ####[address] [address] Calcium [Mass/Vol] 8.8 mg/dL Normal 8.5-10.3 [facility] Comment on above: Performed By: #### C OMP ####[address] [place] [address] Chloride [Moles/Vol] 103 mmol/L Normal 98-110 [facility] Comment on above: Performed By: #### C OMP ####[address] [place] [address] CO2 [Moles/Vol] 24 mmol/L Normal 22-32 [facility] Comment on above: Performed By: #### C OMP ####[address] [place] [address] Creatinine [Mass/Vol] 0.95 mg/dL Normal 0.61-1.24 [facility] Comment on above: Performed By: #### C OMP ####[address] [place] [address] Glucose [Mass/Vol] 93 mg/dL Normal 70-99 [facility] Comment on above: Performed By: #### C OMP ####[address] [address] Potassium [Moles/Vol] 3.9 mmol/L Normal 3.4-4.8 [facility] Comment on above: Performed By: #### C OMP ####[place] [id number] Protein [Mass/Vol] 6.8 g/dL Normal 6.5-8.1 [facility] Comment on above: Performed By: #### C OMP ####[place] [id number] Sodium [Moles/Vol] 136 mmol/L Normal 133-142 [facility] Comment on above: Performed By: #### C OMP ####[place] [id number] Urea nitrogen [Mass/Vol] 15 mg/dL Normal 8-26 [facility] Comment on above: Performed By: #### C OMP ####[place] [id number] Urea nitrogen/Creatinine [Mass ratio] 15.8 mg/mg Normal 10.0-20.0 [facility] Comment on above: Performed By: #### C OMP ####[place] [id number] Inpatient Clinical Summaryon 09-14-2024 Inpatient Clinical Summary Normal [facility] Magnesiumon 09-14-2024 Magnesium [Mass/Vol] 2.3 mg/dL Normal 1.7-2.4 [facility] Comment on above: Performed By: #### M G ####[place] [id number] .Fentanyl Scrn wo Conf,Uron 09-13-2024 Ur Fentanyl Scrn Negative Normal NEG <1.0 [facility] Comment on above: Performed By: #### C [id number] ####[address] [address] Ur Fentanyl Scrn Qnt 0.23 ng/mL Normal <=0.99 [facility] Comment on above: Performed By: #### C [id number] ####[address] [address] .eGFRon 09-13-2024 GFR/1.73 sq M.predicted MDRD (S/P/Bld) [Vol rate/Area] mL/min/{1.73_m2} Normal >=60 [facility] Comment on above: Result Comment: [facility] Laboratories have implemented the eGFR calculation approach [...] = years Performed By: #### E GFR ####[address] [address] B12/Folate Lvlon 09-13-2024 Cobalamin (Vitamin B12) [Mass/Vol] 423 pg/mL Normal 180-914 [facility] Comment on above: Performed By: #### B 12FO ####[address] [address] Folate Lvl >22.3 Normal >=5.9 [facility] Comment on above: Result Comment: A WH O Technical Consultation has determined that deficient Folate concentrations are considered to be less than 4 ng/mL. Performed By: #### B 12FO ####[address] [address] CBC w/ Diffon 09-13-2024 Erythrocyte distribution width (RBC) [Ratio] 13.3 % Normal 11.6-14.8 [facility] Comment on above: Performed By: #### C BC ####[place] [id number] Hematocrit (Bld) [Volume fraction] 48.1 % Normal 41.0-53.0 [facility] Comment on above: Performed By: #### C BC ####[place] [id number] Hemoglobin (Bld) [Mass/Vol] 16.4 g/dL Normal 13.5-17.5 [facility] Comment on above: Performed By: #### C BC ####[place] [id number] MCH (RBC) [Entitic mass] 29.8 pg Normal 27.0-35.0 [facility] Comment on above: Performed By: #### C BC ####[place] [id number] MCHC 34.1 % Normal 31.0-37.0 [facility] Comment on above: Performed By: #### C BC ####[place] [id number] MCV (RBC) [Entitic vol] 87.6 fL Normal 80.0-100.0 [facility] Comment on above: Performed By: #### C BC ####[place] [id number] Platelet 274 x10*3/mcL Normal 150-450 [facility] Comment on above: Performed By: #### C BC ####[address] [address] Platelet mean volume (Bld) [Entitic vol] 7.3 fL Normal 6.7-10.6 [facility] Comment on above: Performed By: #### C BC ####[place] [id number] RBC 5.49 x10*6/mcL Normal 4.30-5.80 [facility] Comment on above: Performed By: #### C BC ####[address] [address] WBC 8.0 x10*3/mcL Normal 4.5-11.0 [facility] Comment on above: Performed By: #### C BC ####[address] [address] CMPon 09-13-2024 Albumin [Mass/Vol] 4.5 g/dL Normal 3.2-4.9 [facility] Comment on above: Performed By: #### C OMP ####[address] [address] Albumin/Globulin [Mass ratio] 1.5 {ratio} Normal 1.1-2.2 [facility] Comment on above: Performed By: #### C OMP ####[address] [address] Alk Phos 55 IU/L Normal 32-91 [facility] Comment on above: Performed By: #### C OMP ####[address] [address] ALT [Catalytic activity/Vol] 37 U/L Normal 17-63 [facility] Comment on above: Performed By: #### C OMP ####[address] [address] Anion gap [Moles/Vol] 8 mmol/L Normal 4-12 [facility] Comment on above: Performed By: #### C OMP ####[address] [address] AST [Catalytic activity/Vol] 33 U/L Normal 15-41 [facility] Comment on above: Performed By: #### C OMP ####[address] [address] Bili Total 1.8 mg/dL High 0.3-1.2 [facility] Comment on above: Performed By: #### C OMP ####[address] [address] Calcium [Mass/Vol] 9.1 mg/dL Normal 8.5-10.3 [facility] Comment on above: Performed By: #### C OMP ####[address] [address] Chloride [Moles/Vol] 101 mmol/L Normal 98-110 [facility] Comment on above: Performed By: #### C OMP ####[address] [address] CO2 [Moles/Vol] 23 mmol/L Normal 22-32 [facility] Comment on above: Performed By: #### C OMP ####[address] [address] Creatinine [Mass/Vol] 1.04 mg/dL Normal 0.61-1.24 [facility] Comment on above: Performed By: #### C OMP ####[address] [address] Glucose [Mass/Vol] 105 mg/dL High 70-99 [facility] Comment on above: Performed By: #### C OMP ####[address] [address] Potassium [Moles/Vol] 4.2 mmol/L Normal 3.4-4.8 [facility] Comment on above: Performed By: #### C OMP ####[address] [address] Protein [Mass/Vol] 7.6 g/dL Normal 6.5-8.1 [facility] Comment on above: Performed By: #### C OMP ####[address] [address] Sodium [Moles/Vol] 132 mmol/L Low 133-142 [facility] Comment on above: Performed By: #### C OMP ####[address] [address] Urea nitrogen [Mass/Vol] 13 mg/dL Normal 8-26 [facility] Comment on above: Performed By: #### C OMP ####[place] [id number] Urea nitrogen/Creatinine [Mass ratio] 12.5 mg/mg Normal 10.0-20.0 [facility] Comment on above: Performed By: #### C OMP ####[address] [address] CoV2 Quadon 09-13-2024 Influenza A PCR Negative Normal Negative [facility] Comment on above: Performed By: #### C D:[id number] ####[address] [address] Influenza B PCR Negative Normal Negative [facility] Comment on above: Performed By: #### C D:[id number] ####[place] [address]25[address] LAB ONLY Result Called? No Normal [facility] Comment on above: Performed By: #### C D:[id number] ####[place] [address]2540 RSV PCR Negative Normal Negative [facility] Comment on above: Result Comment: Resu lts [...] inaccurate positive results. Performed By: #### C D:[id number] ####[place] [address]2540 SARS-CoV-2 RNA Detection Negative Normal Negative [facility] Comment on above: Result Comment: The 2019 [...] their healthcare provider. Performed By: #### C D:[id number] ####[address] [address] Diff Autoon 09-13-2024 Baso Absolute 0.1 x10*3/mcL Normal 0.0-0.2 [facility] Comment on above: Performed By: #### . Automated Diff ####[address] [address] Basophils/100 WBC (Bld) 1.0 % Normal 0.0-1.2 [facility] Comment on above: Performed By: #### . Automated Diff ####[address] [address] Eos Absolute 0.3 x10*3/mcL Normal 0.0-0.4 [facility] Comment on above: Performed By: #### . Automated Diff ####[address] [address] Eosinophils/100 WBC (Bld) 3.2 % Normal 0.0-6.1 [facility] Comment on above: Performed By: #### . Automated Diff ####[address] [address] Lymph Absolute 2.8 x10*3/mcL Normal 1.0-4.8 [facility] Comment on above: Performed By: #### . Automated Diff ####[address] [address] Lymphocytes/100 WBC (Bld) 34.6 % Normal 27.2-40.8 [facility] Comment on above: Performed By: #### . Automated Diff ####[address] [address] [place] Absolute 0.9 x10*3/mcL Normal 0.3-1.1 [facility] Comment on above: Performed By: #### . Automated Diff ####[address] [address] Monocytes/100 WBC (Bld) 10.7 % Normal 4.7-13.9 [facility] Comment on above: Performed By: #### . Automated Diff ####[address] [address] Neutro Absolute 4.0 x10*3/mcL Normal 1.8-7.7 [facility] Comment on above: Performed By: #### . Automated Diff ####[place] [address]40 Neutro Auto 50.5 % Normal 47.2-70.8 [facility] Comment on above: Performed By: #### . Automated Diff ####[place] [address]2540 ED Clinical Summaryon 2023 ED Clinical Summary Normal [facility] ED Note-Nursingon 09-13-2024 ED Note-Nursing Normal [facility] ED Note-Physicianon 09-13-20 ED Note-Physician Normal [facility] Ethanolon 09-13-2024 Ethanol, Plasma <10 Normal <=9 [facility] Comment on above: Result Comment: To c onvert mg/dL to g/dL, divide result by 1,000. Legal limit of intoxication is 80 mg/dL (0.08 g/dL). Performed By: #### A LC ####[place] [address] Magnesiumon 09-13-2024 Magnesium [Mass/Vol] 2.1 mg/dL Normal 1.7-2.4 [facility] Comment on above: Performed By: #### M G ####[place] [address] UDS Compon 09-13-2024 Creatinine [Mass/Vol] 65.9 mg/dL Normal [facility] Comment on above: Performed By: #### C D:[id number] ####[address] [address] Ur Amph Scrn Negative Normal NEG = <1000 [facility] Comment on above: Performed By: #### C D:[id number] ####[address] [address] Ur Yenifer Scrn Negative Normal NEG = <200 [facility] Comment on above: Performed By: #### C D:[id number] ####[address] [address] Ur Benzodia Scrn Positive Abnormal NEG = <200 [facility] Comment on above: Result Comment: This unconfirmed positive screening result is to be used for medical treatment purposes only. Unconfirmed screening results must not be used for non-medical purposes (e.g. employment testing, legal testing). Performed By: #### C D:[id number] ####[place] [address] Ur Cannab Scrn Positive Abnormal NEG = <50 [facility] Comment on above: Result Comment: This unconfirmed positive screening result is to be used for medical treatment purposes only. Unconfirmed screening results must not be used for non-medical purposes (e.g. employment testing, legal testing). Performed By: #### C D:[id number] ####[address] [address] Ur Cocaine Scrn Negative Normal NEG = <300 [facility] Comment on above: Performed By: #### C D:[id number] ####[address] [address] Ur Methadone Scn Negative Normal NEG = <300 [facility] Comment on above: Performed By: #### C D:[id number] ####[address] [address] Ur Opiate Scrn Negative Normal NEG = <300 [facility] Comment on above: Performed By: #### C D:[id number] ####[address] [address] Ur Oxy Screen Negative Normal NEG = <100 [facility] Comment on above: Performed By: #### C D:[id number] ####[address] [address] Ur Oxy Scrn Qnt 12 ng/mL Normal <=99 [facility] Comment on above: Performed By: #### C D:[id number] ####[place] [address] [place] [address] Ur PCP Scrn Negative Normal NEG = <25 [facility] Comment on above: Performed By: #### C D:[id number] ####[place] [address] [place] [address] UA pH 6.0 Normal 4.5 - 7.8 [facility] Comment on above: Performed By: #### C D:[id number] ####[place] [address] [place] [address] UA Spec Grav 1.009 Normal 1.003-1.035 [facility] Comment on above: Performed By: #### C D:[id number] ####[address] [address] XR Chest 1 Viewon 09-13-2024 XR Chest 1 View Normal [facility] BASIC METABOLIC PANLon 09-12 Anion gap [Moles/Vol] 11 mmol/L Normal 5-15 [facility] Comment on above: Performed By: #### C BCA, BMP, 3298-7, 4024-6, 5643-2 #### [facility] ([id number]) [address] [place] [address] #### 03391-6 #### [facility] ([id number]) [address] [place] [address], [address] [place] [address] Calcium [Mass/Vol] 9.6 mg/dL Normal 8.5-10.5 [facility] Comment on above: Performed By: #### C BCA, BMP, 3298-7, 4024-6, 5643-2 #### [facility] ([id number]) [address] [place] [address] #### 46203-8 #### [facility] ([id number]) [address], [address] [place] [address] Chloride [Moles/Vol] 101 mmol/L Normal 98-109 [facility] Comment on above: Performed By: #### C SUSAN BMP, 3298-7, 4024-6, 5643-2 #### [facility] ([id number]) [address] [place] [address] #### 73301-4 #### [facility] ([id number]) [address] [place] [address], [address] [place] [address] CO2 [Moles/Vol] 24 mmol/L Normal 22-32 [facility] Comment on above: Performed By: #### C SUSAN BMP, 3297-7, 4024-6, 5643-2 #### [facility] ([id number]) [address] [place] [address] #### 77489-0 #### [facility] ([id number]) [address] [place] [address], [address] [place] [address] Creatinine [Mass/Vol] 0.77 mg/dL Normal 0.60-1.30 [facility] Comment on above: Result Comment: METH OD TRACEABLE TO IDMS STANDARD Performed By: #### C SUSAN BMP, 3297-7, 4-6, 5643-2 #### [facility] ([id number]) [address] [place] [address] #### 23091-1 #### [facility] ([id number]) [address] [place] [address], [address] [place] [address] eGFR (CKD-EPI) NON-RACE DEPENDENT >90 Normal >59 [facility] Comment on above: Result Comment: Reported eGFR is based on the CKD-EPI 2020 equation that does not use a race coefficient. Performed By: #### C BCA, BMP, 3298-7, 4024-6, 5643-2 #### [facility] ([id number]) [address] [place] [address] #### 57353-6 #### [facility] ([id number]) [address], [address] [place] [address] Glucose [Mass/Vol] 90 mg/dL Normal 65-99 [facility] Comment on above: Performed By: #### C BCA, BMP, 3298-7, 4024-6, 5643-2 #### [facility] ([id number]) [address] [place] [address] #### 37493-5 #### [facility] ([id number]) [address], [address] [place] [address] Potassium [Moles/Vol] 4.0 mmol/L Normal 3.5-5.0 [facility] Comment on above: Performed By: #### C SUSAN, BMP, 3298-7, 4024-6, 5643-2 #### [facility] ([id number]) [address] [place] [address] #### 85243-4 #### [facility] ([id number]) [address], [address] [place] [address] Sodium [Moles/Vol] 136 mmol/L Normal 134-146 [facility] Comment on above: Performed By: #### C SUSAN, BMP, 3298-7, 4024-6, 5643-2 #### [facility] ([id number]) [address] [place] [address] #### 82385-1 #### [facility] ([id number]) [address] [place] [address], [address] [place] [address] Urea nitrogen [Mass/Vol] 13 mg/dL Normal 5-23 [facility] Comment on above: Performed By: #### C BCA, BMP, 3298-7, 4024-6, 5643-2 #### [facility] ([id number]) [address] [place] [address] #### 84424-4 #### [facility] ([id number]) [address], [address] [place] [address] CBC AND AUTO DIFFon 11-18-20 24 ABSOLUTE BASOPHIL 0.1 X10E9/L Normal 0.0-0.2 [facility] Comment on above: Performed By: #### Domenic DAVIS BMP, 3298-7, 4024-6, 5643-2 #### [facility] ([id number]) [address] [place] [address] #### 21943-7 #### [facility] ([id number]) [address], [address] [place] [address] ABSOLUTE NEUTROPHIL 2.9 X10E9/L Normal 1.5-6.6 [facility] Comment on above: Performed By: #### C ANA DAVIS, 3298-7, 4024-6, 5643-2 #### [facility] ([id number]) [address] [place] [address] #### 14282-6 #### [facility] ([id number]) [address], [address] [place] [address] Basophils/100 WBC (Bld) 1.3 % Normal [facility] Comment on above: Performed By: #### ANA Sheth BCA, 3298-7, 4024-6, 5643-2 #### [facility] ([id number]) [address] [place] [address] #### 93767-8 #### [facility] ([id number]) [address], [address] [place] [address] Eosinophils (Bld) [#/Vol] 0.5 10*3/uL High 0.0-0.4 [facility] Comment on above: Performed By: #### Domenic DAVIS, BMP, 3298-7, 4024-6, 5643-2 #### [facility] ([id number]) [address] [place] [address] #### 19199-5 #### [facility] ([id number]) [address], [address] [place] [address] Eosinophils/100 WBC (Bld) 7.8 % Normal [facility] Comment on above: Performed By: #### C ANA DAVIS, 3298-7, 4024-6, 5643-2 #### [facility] ([id number]) [address] [place] [address] #### 76442-2 #### [facility] ([id number]) [address], [address] [place] [address] Erythrocyte distribution width (RBC) [Ratio] 13.2 % Normal 11.5-15.0 [facility] Comment on above: Performed By: #### C ANA DAVIS, 3298-7, 4024-6, 5643-2 #### [facility] ([id number]) [address] [place] [address] #### 13832-4 #### [facility] ([id number]) [address], [address] [place] [address] Hematocrit (Bld) [Volume fraction] 49.2 % High 39-49 [facility] Comment on above: Performed By: #### C ANA DAVIS, 3298-7, 4024-6, 5643-2 #### [facility] ([id number]) [address] [place] [address] #### 59116-9 #### [facility] ([id number]) [address], [address] [place] [address] Hemoglobin (Bld) [Mass/Vol] 17.3 g/dL High 13.0-17.0 [facility] Comment on above: Performed By: #### C ANA DAVIS, 3298-7, 4024-6, 5643-2 #### [facility] ([id number]) [address] [place] [address] #### 68058-3 #### [facility] ([id number]) [address], [address] [place] [address] Lymphocytes (Bld) [#/Vol] 2.1 10*3/uL Normal 1.0-3.5 [facility] Comment on above: Performed By: #### C BCA, BMP, 3298-7, 4024-6, 5643-2 #### [facility] ([id number]) [address] [place] [address] #### 03805-2 #### [facility] ([id number]) [address] [place] [address], [address] [place] [address] Lymphocytes/100 WBC (Bld) 32.1 % Normal [facility] Comment on above: Performed By: #### C BCA, BMP, 3298-7, 4024-6, 5643-2 #### [facility] ([id number]) [address] [place] [address] #### 21442-9 #### [facility] ([id number]) [address] [place] [address], [address] [place] [address] MCH (RBC) [Entitic mass] 31.1 pg Normal 27-34 [facility] Comment on above: Performed By: #### C BCA, BMP, 3298-7, 4024-6, 5643-2 #### [facility] ([id number]) [address] [place] [address] #### 01012-4 #### [facility] ([id number]) [address], [address] [place] [address] MCHC (RBC) [Mass/Vol] 35.1 g/dL Normal 32-36 [facility] Comment on above: Performed By: #### C BCA, BMP, 3298-7, 4024-6, 5643-2 #### [facility] ([id number]) [address] [place] [address] #### 61369-3 #### [facility] ([id number]) [address] [place] [address], [facility] [address] [place] [address] MCV (RBC) [Entitic vol] 89 fL Normal 80-100 [facility] Comment on above: Performed By: #### C BCA, BMP, 3298-7, 4024-6, 5643-2 #### [facility] ([id number]) [address] [place] [address] #### 99572-4 #### [facility] ([id number]) [address] [place] [address], [address] [place] [address] Monocytes (Bld) [#/Vol] 0.9 10*3/uL Normal 0-0.9 [facility] Comment on above: Performed By: #### C BCA, BMP, 329-7, 4024-6, 5643-2 #### [facility] ([id number]) [address] [place] [address] #### 03355-7 #### [facility] ([id number]) [address] [place] [address] Monocytes/100 WBC (Bld) 14.3 % Normal [facility] Comment on above: Performed By: #### C BCA, BMP, 3298-7, 4024-6, 5643-2 #### [facility] ([id number]) [address] [place] [address] #### 45821-1 #### [facility] ([id number]) [address] [place] [address], [facility] [address] [place] [address] Neutrophils/100 WBC (Bld) 44.5 % Normal [facility] Comment on above: Performed By: #### C BCA, BMP, 3298-7, 4024-6, 5643-2 #### [facility] ([id number]) [address] [place] [address] #### 45047-6 #### [facility] ([id number]) [address] [place] [address], [address] [place] [address] Platelet mean volume (Bld) [Entitic vol] 8.1 fL Normal 7-12 [facility] Comment on above: Performed By: #### C ANA DAVIS, 3298-7, 4024-6, 5643-2 #### [facility] ([id number]) [address] [place] [address] #### 20648-0 #### [facility] ([id number]) [address] [place] [address], [facility] [address] [place] [address] Platelets (Bld) [#/Vol] 224 10*3/uL Normal 150-450 [facility] Comment on above: Performed By: #### C ANA DAVIS, 3298-7, 4024-6, 5643-2 #### [facility] ([id number]) [address] [place] [address] #### 29768-4 #### [facility] ([id number]) [address] [place] [address], [facility] [address] [place] [address] RBC COUNT 5.55 X10E12/L Normal 4.10-5.70 [facility] Comment on above: Performed By: #### C SUSAN, ANA, 3298-7, 4024-6, 5643-2 #### [facility] ([id number]) [address] [place] [address] #### 47400-5 #### [facility] ([id number]) [address] [place] [address], [address] [place] [address] WBC (Bld) [#/Vol] 6.5 10*3/uL Normal 4.0-11.0 [facility] Comment on above: Performed By: #### C SUSAN, BMP, 3298-7, 4024-6, 5643-2 #### [facility] ([id number]) [address] [place] [address] #### 49627-6 #### [facility] ([id number]) [address] [place] [address] MAGNESIUMon 09-12-2024 Magnesium [Mass/Vol] 1.9 mg/dL Normal 1.8-2.6 [facility] Comment on above: Performed By: #### C SUSAN BMP, 3298-7, 4024-6, 5643-2 #### [facility] ([id number]) [address] [place] [address] #### 62322-7 #### [facility] ([id number]) [address] [place] [address] CBC AND AUTO DIFFon 09-11-20 ABSOLUTE BASOPHIL 0.1 X10E9/L Normal 0.0-0.2 [facility] Comment on above: Performed By: #### C SUSAN BMP, 3298-7, 4024-6, 5643-2 #### [facility] ([id number]) [address] [place] [address] #### 83890-3 #### [facility] ([id number]) [address] [place] [address] ABSOLUTE NEUTROPHIL 3.4 X10E9/L Normal 1.5-6.6 [facility] Comment on above: Performed By: #### C SUSAN BMP, 3298-7, 4024-6, 5643-2 #### [facility] ([id number]) [address] [place] [address] #### 51005-3 #### [facility] ([id number]) [address] [place] [address] Basophils/100 WBC (Bld) 1.3 % Normal [facility] Comment on above: Performed By: #### C BCA, BMP, 3298-7, 4024-6, 5643-2 #### [facility] ([id number]) [address] [place] [address] #### 76366-3 #### [facility] ([id number]) [address] [place] [address] Eosinophils (Bld) [#/Vol] 0.7 10*3/uL High 0.0-0.4 [facility] Comment on above: Performed By: #### C SUSAN, BMP, 3298-7, 4024-6, 5643-2 #### [facility] ([id number]) [address] [place] [address] #### 66164-8 #### [facility] ([id number]) [address] [place] [address] Eosinophils/100 WBC (Bld) 9.5 % Normal [facility] Comment on above: Performed By: #### C SUSAN BMP, 3298-7, 4024-6, 5643-2 #### [facility] ([id number]) [address] [place] [address] #### 63453-6 #### [facility] ([id number]) [address] [place] [address] Erythrocyte distribution width (RBC) [Ratio] 13.5 % Normal 11.5-15.0 [facility] Comment on above: Performed By: #### C BCA, BMP, 3297-7, 4023-6, 5643-2 #### [facility] ([id number]) [address] [place] [address] #### 67296-4 #### [facility] ([id number]) [address] [place] [address] Hematocrit (Bld) [Volume fraction] 47.2 % Normal 39-49 [facility] Comment on above: Performed By: #### C BCA, BMP, 3297-7, 4023-6, 5643-2 #### [facility] ([id number]) [address] [place] [address] #### 40644-6 #### [facility] ([id number]) [address], [address] [place] [address] Hemoglobin (Bld) [Mass/Vol] 16.3 g/dL Normal 13.0-17.0 [facility] Comment on above: Performed By: #### C BCA, BMP, 3298-7, 4024-6, 5643-2 #### [facility] ([id number]) [address] [place] [address] #### 80803-3 #### [facility] ([id number]) [address], [address] [place] [address] Lymphocytes (Bld) [#/Vol] 2.0 10*3/uL Normal 1.0-3.5 [facility] Comment on above: Performed By: #### C BCA, BMP, 3298-7, 4024-6, 5643-2 #### [facility] ([id number]) [address] [place] [address] #### 41700-8 #### [facility] ([id number]) [address], [address] [place] [address] Lymphocytes/100 WBC (Bld) 28.0 % Normal [facility] Comment on above: Performed By: #### C BCA, BMP, 8-7, 4024-6, 5643-2 #### [facility] ([id number]) [address] [place] [address] #### 02279-3 #### [facility] ([id number]) [address], [address] [place] [address] MCH (RBC) [Entitic mass] 30.6 pg Normal 27-34 [facility] Comment on above: Performed By: #### C BCA, BMP, 3298-7, 4024-6, 5643-2 #### [facility] ([id number]) [address] [place] [address] #### 20913-8 #### [facility] ([id number]) [address] [facility], [address] [place] [address] MCHC (RBC) [Mass/Vol] 34.5 g/dL Normal 32-[address] [facility] Comment on above: Performed By: #### C BCA, BMP, 3297-7, 4024-6, 5643-2 #### [facility] ([id number]) [address] [place] [address] #### 06506-4 #### [facility] ([id number]) [address] [facility], [address] [place] [address] MCV (RBC) [Entitic vol] 89 fL Normal 80-100 [facility] Comment on above: Performed By: #### C BCA, BMP, 3297-7, 4024-6, 5643-2 #### [facility] ([id number]) [address] [place] [address] #### 65259-4 #### [facility] ([id number]) [address] [facility], [address] [place] [address] Monocytes (Bld) [#/Vol] 0.9 10*3/uL Normal 0-0.9 [facility] Comment on above: Performed By: #### C BCA, BMP, 3297-7, 4024-6, 5643-2 #### [facility] ([id number]) [address] [place] [address] #### 48427-4 #### [facility] ([id number]) [address] [facility], [address] [place] [address] Monocytes/100 WBC (Bld) 12.6 % Normal [facility] Comment on above: Performed By: #### C BCA, BMP, 3297-7, 4024-6, 5643-2 #### [facility] ([id number]) [address] [place] [address] #### 76788-1 #### [facility] ([id number]) [address] [facility], [address] [place] [address] Neutrophils/100 WBC (Bld) 48.6 % Normal [facility] Comment on above: Performed By: #### C ANA DAVIS, 3298-7, 4024-6, 5643-2 #### [facility] ([id number]) [address] [place] [address] #### 75644-0 #### [facility] ([id number]) [address] [facility], [address] [place] [address] Platelet mean volume (Bld) [Entitic vol] 7.8 fL Normal 7-12 [facility] Comment on above: Performed By: #### C ANA DAVIS, 3298-7, 4024-6, 5643-2 #### [facility] ([id number]) [address] [place] [address] #### 79470-2 #### [facility] ([id number]) [address] [facility], [address] [place] [address] Platelets (Bld) [#/Vol] 205 10*3/uL Normal 150-450 [facility] Comment on above: Performed By: #### C ANA DAVIS, 3298-7, 4024-6, 5643-2 #### [facility] ([id number]) [address] [place] [address] #### 58474-9 #### [facility] ([id number]) [address] [facility], [address] [place] [address] RBC COUNT 5.33 X10E12/L Normal 4.10-5.70 [facility] Comment on above: Performed By: #### C BCA, BMP, 3298-7, 4024-6, 5643-2 #### [facility] ([id number]) [address] [place] [address] #### 15563-9 #### [facility] ([id number]) [address], [address] [place] [address] WBC (Bld) [#/Vol] 7.0 10*3/uL Normal 4.0-11.0 [facility] Comment on above: Performed By: #### C BCA, BMP, 3298-7, 4024-6, 5643-2 #### [facility] ([id number]) [address] [place] [address] #### 63675-8 #### [facility] ([id number]) [address], [address] [place] [address] COMPREHENSIVE METABOLIC PANE Per 09-11-2024 Albumin [Mass/Vol] 4.0 g/dL Normal 3.2-5.3 [facility] Comment on above: Performed By: #### C BCA, BMP, 3298-7, 4024-6, 5643-2 #### [facility] ([id number]) [address] [place] [address] #### 60122-3 #### [facility] ([id number]) [address], [address] [place] [address] ALP [Catalytic activity/Vol] 55 U/L Normal 39-130 [facility] Comment on above: Performed By: #### C BCA, BMP, 3298-7, 4024-6, 5643-2 #### [facility] ([id number]) [address] [place] [address] #### 54084-8 #### [facility] ([id number]) [address], [address] [place] [address] ALT [Catalytic activity/Vol] 29 U/L Normal 0-40 [facility] Comment on above: Performed By: #### C BCA, BMP, 3298-7, 4024-6, 5643-2 #### [facility] ([id number]) [address] [place] [address] #### 31808-8 #### [facility] ([id number]) [address], [address] [place] [address] Anion gap [Moles/Vol] 7 mmol/L Normal 5-15 [facility] Comment on above: Performed By: #### C BCA, BMP, 3298-7, 4024-6, 5643-2 #### [facility] ([id number]) [address] [place] [address] #### 13492-3 #### [facility] ([id number]) [address], [address] [place] [address] AST [Catalytic activity/Vol] 36 U/L Normal 0-41 [facility] Comment on above: Performed By: #### C BCA, BMP, 3298-7, 4024-6, 5643-2 #### [facility] ([id number]) [address] [place] [address] #### 05540-1 #### [facility] ([id number]) [address], [address] [place] [address] Bilirubin [Mass/Vol] 1.0 mg/dL Normal 0.3-1.2 [facility] Comment on above: Performed By: #### C BCA, BMP, 3298-7, 4024-6, 5643-2 #### [facility] ([id number]) [address] [place] [address] #### 22810-4 #### [facility] ([id number]) [address], [address] [place] [address] Calcium [Mass/Vol] 9.0 mg/dL Normal 8.5-10.5 [facility] Comment on above: Performed By: #### C BCA, BMP, 3298-7, 4024-6, 5643-2 #### [facility] ([id number]) [address] [place] [address] #### 90518-9 #### [facility] ([id number]) [address] [facility], [address] [place] [address] Chloride [Moles/Vol] 104 mmol/L Normal 98-109 [facility] Comment on above: Performed By: #### C BCA, BMP, 3298-7, 4024-6, 5643-2 #### [facility] ([id number]) [address] [place] [address] #### 86220-3 #### [facility] ([id number]) [address] [facility], [address] [place] [address] CO2 [Moles/Vol] 26 mmol/L Normal 22-32 [facility] Comment on above: Performed By: #### C BCA, BMP, 3298-7, 4024-6, 5643-2 #### [facility] ([id number]) [address] [place] [address] #### 49491-5 #### [facility] ([id number]) [address] [facility], [address] [place] [address] Creatinine [Mass/Vol] 0.73 mg/dL Normal 0.60-1.30 [facility] Comment on above: Result Comment: METH OD TRACEABLE TO IDMS STANDARD Performed By: #### C BCA, BMP, 3298-7, 4024-6, 5643-2 #### [facility] ([id number]) [address] [place] [address] #### 30626-2 #### [facility] ([id number]) [address] [facility], [address] [place] [address] eGFR (CKD-EPI) NON-RACE DEPENDENT >90 Normal >59 [facility] Comment on above: Result Comment: Reported eGFR is based on the CKD-EPI 2020 equation that does not use a race coefficient. Performed By: #### C ANA DAVIS, 3298-7, 4024-6, 5643-2 #### [facility] ([id number]) [address] [place] [address] #### 19078-5 #### [facility] ([id number]) [address], [address] [place] [address] Glucose [Mass/Vol] 93 mg/dL Normal 65-99 [facility] Comment on above: Performed By: #### C ANA DAVIS, 3298-7, 4024-6, 5643-2 #### [facility] ([id number]) [address] [place] [address] #### 00725-1 #### [facility] ([id number]) [address] [facility], [address] [place] [address] Potassium [Moles/Vol] 3.9 mmol/L Normal 3.5-5.0 [facility] Comment on above: Performed By: #### C ANA DAVIS, 3298-7, 4024-6, 5643-2 #### [facility] ([id number]) [address] [place] [address] #### 65497-3 #### [facility] ([id number]) [address] [facility], [address] [place] [address] Protein [Mass/Vol] 6.7 g/dL Normal 6.0-8.0 [facility] Comment on above: Performed By: #### C ANA DAVIS, 3298-7, 4024-6, 5643-2 #### [facility] ([id number]) [address] [place] [address] #### 82303-8 #### [facility] ([id number]) [address] [facility], [address] [place] [address] Sodium [Moles/Vol] 137 mmol/L Normal 134-146 [facility] Comment on above: Performed By: #### C BCA, BMP, 3298-7, 4024-6, 5643-2 #### [facility] ([id number]) [address] [place] [address] #### 95573-7 #### [facility] ([id number]) [address] [place] [address], [address] [place] [address] Urea nitrogen [Mass/Vol] 11 mg/dL Normal 5-23 [facility] Comment on above: Performed By: #### C BCA, BMP, 329-7, 4-6, 5643-2 #### [facility] ([id number]) [address] [place] [address] #### 72905-4 #### [facility] ([id number]) [address] [place] [address], [address] [place] [address] MAGNESIUMon 09-11-2024 Magnesium [Mass/Vol] 2.1 mg/dL Normal 1.8-2.6 [facility] Comment on above: Performed By: #### C BCA, BMP, 3297-7, 4024-6, 5643-2 #### [facility] ([id number]) [address] [place] [address] #### 19157-0 #### [facility] ([id number]) [address] [facility], [address] [place] [address] BASIC METABOLIC PANLon 09-10 Anion gap [Moles/Vol] 10 mmol/L Normal 5-15 [facility] Comment on above: Performed By: #### C BCA, BMP, 329-7, 4024-6, 5643-2 #### [facility] ([id number]) [address] [place] [address] #### 75038-2 #### [facility] ([id number]) [address] [place] [address], [address] [place] [address] Calcium [Mass/Vol] 8.8 mg/dL Normal 8.5-10.5 [facility] Comment on above: Performed By: #### C ANA DAVIS, 3298-7, 4024-6, 5643-2 #### [facility] ([id number]) [address] [place] [address] #### 56039-0 #### [facility] ([id number]) [address] [place] [address], [address] [place] [address] Chloride [Moles/Vol] 106 mmol/L Normal 98-109 [facility] Comment on above: Performed By: #### C ANA DAVIS, 3298-7, 4024-6, 5643-2 #### [facility] ([id number]) [address] [place] [address] #### 31513-1 #### [facility] ([id number]) [address] [place] [address], [facility] [address] [place] [address] CO2 [Moles/Vol] 22 mmol/L Normal 22-32 [facility] Comment on above: Performed By: #### C ANA DAVIS, 3298-7, 4024-6, 5643-2 #### [facility] ([id number]) [address] [place] [address] #### 63551-5 #### [facility] ([id number]) [address] [place] [address], [facility] [address] [place] [address] Creatinine [Mass/Vol] 0.73 mg/dL Normal 0.60-1.30 [facility] Comment on above: Result Comment: METH OD TRACEABLE TO IDMS STANDARD Performed By: #### C ANA DAVIS, 3298-7, 4024-6, 5643-2 #### [facility] ([id number]) [address] [place] [address] #### 94379-5 #### [facility] ([id number]) [address], [address] [place] [address] eGFR (CKD-EPI) NON-RACE DEPENDENT >90 Normal >59 [facility] Comment on above: Result Comment: Reported eGFR is based on the CKD-EPI 2020 equation that does not use a race coefficient. Performed By: #### C BCA, BMP, 3298-7, 4024-6, 5643-2 #### [facility] ([id number]) [address] [place] [address] #### 72185-3 #### [facility] ([id number]) [address] [facility], [address] [place] [address] Glucose [Mass/Vol] 91 mg/dL Normal 65-99 [facility] Comment on above: Performed By: #### C BCA, BMP, 3298-7, 4024-6, 5643-2 #### [facility] ([id number]) [address] [place] [address] #### 13085-8 #### [facility] ([id number]) [address] [place] [address] Potassium [Moles/Vol] 3.9 mmol/L Normal 3.5-5.0 [facility] Comment on above: Performed By: #### C BCA, BMP, 3298-7, 4024-6, 5643-2 #### [facility] ([id number]) [address] [place] [address] #### 48364-5 #### [facility] ([id number]) [address], [address] [place] [address] Sodium [Moles/Vol] 138 mmol/L Normal 134-146 [facility] Comment on above: Performed By: #### C BCA, BMP, 3298-7, 4024-6, 5643-2 #### [facility] ([id number]) [address] [place] [address] #### 21324-5 #### [facility] ([id number]) [address] [facility], [address] [place] [address] Urea nitrogen [Mass/Vol] 11 mg/dL Normal 5-23 [facility] Comment on above: Performed By: #### C BCA, BMP, 3298-7, 4024-6, 5643-2 #### [facility] ([id number]) [address] [place] [address] #### 58626-1 #### [facility] ([id number]) [address] [facility], [address] [place] [address] CBC AND AUTO DIFFon 09-10-20 24 ABSOLUTE BASOPHIL 0.1 X10E9/L Normal 0.0-0.2 [facility] Comment on above: Performed By: #### C BCA, BMP, 3298-7, 4024-6, 5643-2 #### [facility] ([id number]) [address] [place] [address] #### 73030-4 #### [facility] ([id number]) [address] [facility], [address] [address] ABSOLUTE NEUTROPHIL 5.2 X10E9/L Normal 1.5-6.6 [facility] Comment on above: Performed By: #### C BCA, BMP, 3298-7, 4024-6, 5643-2 #### [facility] ([id number]) [address] [place] [address] #### 27418-0 #### [facility] ([id number]) [address] [facility], [address] [address] Basophils/100 WBC (Bld) 1.1 % Normal [facility] Comment on above: Performed By: #### C BCA, BMP, 3298-7, 4024-6, 5643-2 #### [facility] ([id number]) [address] [place] [address] #### 68974-9 #### [facility] ([id number]) [address] [place] [address], [address] [place] [address] Eosinophils (Bld) [#/Vol] 0.5 10*3/uL High 0.0-0.4 [facility] Comment on above: Performed By: #### C BCA, BMP, 3298-7, 4024-6, 5643-2 #### [facility] ([id number]) [address] [place] [address] #### 01528-4 #### [facility] ([id number]) [address] [place] [address], [address] [place] [address] Eosinophils/100 WBC (Bld) 6.7 % Normal [facility] Comment on above: Performed By: #### C BCA, BMP, 3298-7, 4024-6, 5643-2 #### [facility] ([id number]) [address] [place] [address] #### 69683-8 #### [facility] ([id number]) [address] [place] [address], [address] [place] [address] Erythrocyte distribution width (RBC) [Ratio] 13.3 % Normal 11.5-15.0 [facility] Comment on above: Performed By: #### Domenic BCA, BMP, 329-7, 4024-6, 5643-2 #### [facility] ([id number]) [address] [place] [address] #### 50785-5 #### [facility] ([id number]) [address] [place] [address], [address] [place] [address] Hematocrit (Bld) [Volume fraction] 47.5 % Normal 39-49 [facility] Comment on above: Performed By: #### C BCA, BMP, 3298-7, 4024-6, 5643-2 #### [facility] ([id number]) [address] [place] [address]78 #### 51913-2 #### [facility] ([id number]) [address] [facility] [address] [place] [address] Hemoglobin (Bld) [Mass/Vol] 16.6 g/dL Normal 13.0-17.0 [facility] Comment on above: Performed By: #### C BCA, BMP, 3298-7, 4024-6, 5643-2 #### [facility] ([id number]) [address] [place] [address] #### 69803-5 #### [facility] ([id number]) [address] [place] [address] Lymphocytes (Bld) [#/Vol] 1.3 10*3/uL Normal 1.0-3.5 [facility] Comment on above: Performed By: #### C BCA, BMP, 329-7, 4024-6, 5643-2 #### [facility] ([id number]) [address] [place] [address]145 #### 77272-6 #### [facility] ([id number]) [address] [place] [address] Lymphocytes/100 WBC (Bld) 16.6 % Normal [facility] Comment on above: Performed By: #### Domenic BCA, BMP, 329-7, 4024-6, 5643-2 #### [facility] ([id number]) [address] [place] [address]57 #### 18647-8 #### [facility] ([id number]) [address] [place] [address] [address] [place] [address] MCH (RBC) [Entitic mass] 30.7 pg Normal 27-34 [facility] Comment on above: Performed By: #### C BCA, BMP, 3298-7, 4024-6, 5643-2 #### [facility] ([id number]) [address] [place] [address] #### 63893-0 #### [facility] ([id number]) [address] [place] [address] [address] [place] [address] MCHC (RBC) [Mass/Vol] 35.0 g/dL Normal 32-36 [facility] Comment on above: Performed By: #### C BCA, BMP, 3298-7, 4024-6, 5643-2 #### [facility] ([id number]) [address] [place] [address]4865 #### 62369-6 #### [facility] ([id number]) [address] [place] [address] [address] [place] [address] MCV (RBC) [Entitic vol] 88 fL Normal 80-100 [facility] Comment on above: Performed By: #### C SUSAN, BMP, 329-7, 402-6, 5643-2 #### [facility] ([id number]) [address] [place] [address] #### 34698-8 #### [facility] ([id number]) [address] [place] [address] [address] [place] [address] Monocytes (Bld) [#/Vol] 0.7 10*3/uL Normal 0-0.9 [facility] Comment on above: Performed By: #### Domenic BCA, BMP, 3297-7, 4024-6, 5643-2 #### [facility] ([id number]) [address] [place] [address] #### 85805-9 #### [facility] ([id number]) [address] [place] [address] Monocytes/100 WBC (Bld) 9.2 % Normal [facility] Comment on above: Performed By: #### Domenic BCA, BMP, 3298-7, 4024-6, 5643-2 #### [facility] ([id number]) [address] [place] [address]3979 #### 37590-6 #### [facility] ([id number]) [address] [place] [address] Neutrophils/100 WBC (Bld) 66.4 % Normal [facility] Comment on above: Performed By: #### ANA Sheth BCA, 3298-7, 4024-6, 5643-2 #### [facility] ([id number]) [address] [place] [address] #### 74792-0 #### [facility] ([id number]) [address] [place] [address], [address] [address] Platelet mean volume (Bld) [Entitic vol] 7.7 fL Normal 7-12 [facility] Comment on above: Performed By: #### ANA Sheth BCA, 3298-7, 4024-6, 5643-2 #### [facility] ([id number]) [address] [place] [address] #### 16198-9 #### [facility] ([id number]) [address] [place] [address] Platelets (Bld) [#/Vol] 208 10*3/uL Normal 150-450 [facility] Comment on above: Performed By: #### ANA Sheth BCA, 3298-7, 4024-6, 5643-2 #### [facility] ([id number]) [address] [place] [address] 91892 #### 58064-8 #### [facility] ([id number]) [address] [place] [address] RBC COUNT 5.41 X10E12/L Normal 4.10-5.70 [facility] Comment on above: Performed By: #### ANA Sheth BCA, 3298-7, 4024-6, 5643-2 #### [facility] ([id number]) [address] [place] [address] #### 31952-7 #### [facility] ([id number]) [address] [facility], [address] [place] [address] WBC (Bld) [#/Vol] 7.8 10*3/uL Normal 4.0-11.0 [facility] Comment on above: Performed By: #### C BCA, BMP, 3298-7, 4024-6, 5643-2 #### [facility] ([id number]) [address] [place] [address] #### 67622-9 #### [facility] ([id number]) [address] [place] [address], [address] [place] [address] BASIC METABOLIC PANLon 09-09 Anion gap [Moles/Vol] 8 mmol/L Normal 5-15 [facility] Comment on above: Performed By: #### C BCA, BMP, 3298-7, 4024-6, 5643-2 #### [facility] ([id number]) [address] [place] [address] #### 47934-2 #### [facility] ([id number]) [address] [place] [address], [address] [place] [address] Calcium [Mass/Vol] 8.7 mg/dL Normal 8.5-10.5 [facility] Comment on above: Performed By: #### C BCA, BMP, 3298-7, 4024-6, 5643-2 #### [facility] ([id number]) [address] [place] [address] #### 73150-2 #### [facility] ([id number]) [facility] [address], [address] [place] [address] Chloride [Moles/Vol] 109 mmol/L Normal 98-109 [facility] Comment on above: Performed By: #### C BCA, BMP, 3298-7, 4024-6, 5643-2 #### [facility] ([id number]) [address] [place] [address] #### 25043-5 #### [facility] ([id number]) [address], [address] [place] [address] CO2 [Moles/Vol] 23 mmol/L Normal 22-32 [facility] Comment on above: Performed By: #### C BCA, BMP, 3298-7, 4024-6, 5643-2 #### [facility] ([id number]) [address] [place] [address] #### 84528-9 #### [facility] ([id number]) [address], [address] [place] [address] Creatinine [Mass/Vol] 0.77 mg/dL Normal 0.60-1.30 [facility] Comment on above: Result Comment: METH OD TRACEABLE TO IDMS STANDARD Performed By: #### C BCA, BMP, 3298-7, 4024-6, 5643-2 #### [facility] ([id number]) [address] [place] [address] #### 17922-2 #### [facility] ([id number]) [address], [address] [place] [address] eGFR (CKD-EPI) NON-RACE DEPENDENT >90 Normal >59 [facility] Comment on above: Result Comment: Reported eGFR is based on the CKD-EPI 2021 equation that does not use a race coefficient. Performed By: #### C BCA, BMP, 3298-7, 4024-6, 5643-2 #### [facility] ([id number]) [address] [place] [address] #### 55297-7 #### [facility] ([id number]) [address], [address] [place] [address] Glucose [Mass/Vol] 116 mg/dL High 65-99 [facility] Comment on above: Performed By: #### C BCA, BMP, 3298-7, 4024-6, 5643-2 #### [facility] ([id number]) [address] [place] [address] #### 76286-9 #### [facility] ([id number]) [address], [address] [place] [address] Potassium [Moles/Vol] 4.0 mmol/L Normal 3.5-5.0 [facility] Comment on above: Performed By: #### C BCA, BMP, 3298-7, 4024-6, 5643-2 #### [facility] ([id number]) [address] [place] [address] #### 21832-0 #### [facility] ([id number]) [address], [address] [place] [address] Sodium [Moles/Vol] 140 mmol/L Normal 134-146 [facility] Comment on above: Performed By: #### C BCA, BMP, 3298-7, 4024-6, 5643-2 #### [facility] ([id number]) [address] [place] [address] 080[address] #### 70113-2 #### [facility] ([id number]) [address], [address] [place] [address] Urea nitrogen [Mass/Vol] 13 mg/dL Normal 5-23 [facility] Comment on above: Performed By: #### C BCA, BMP, 3298-7, 4024-6, 5643-2 #### [facility] ([id number]) [address] [place] [address] 767[address] #### 34739-8 #### [facility] ([id number]) [address], [address] [place] [address] [address]APID [address]REP SCR NURSINGon S. pyogenes Ag EIA Ql (Throat) Negative Normal NEG [facility] Comment on above: Performed By: #### C SUSAN, [facility], 3298-7, 4024-6, 5643-2 #### [facility] ([id number]) [address] [place] [address] #### 89548-8 #### [facility] ([id number]) [address] [place] [address], [address] [place] [address] RESP PATHOGENS/IRKB-NvN-7mk 09-09-2024 Respiratory pathogens DNA and RNA panel [...] patient with possible respiratory tract infection. Normal [facility] Comment on above: Performed By: #### C ANA DAVIS, 3298-7, 4024-6, 5643-2 #### [facility] ([id number]) [address] [place] [address] #### 53941-8 #### [facility] ([id number]) [address] [place] [address], [address] [place] [address] XR CHEST 1 VWon 09-09-2024 XR CHEST 1 VW XR CHEST 1 VW Indication: Cough. TECHNIQUE: Frontal view the chest obtained portably and compared to prior exam dated 09/04/2021. FINDINGS: Heart and mediastinum are within normal limits. Focal consolidation, pleural effusion, or pneumothorax is not seen. IMPRESSION: 1. No definite acute pulmonary process. Finalized by Cassi Hathaway MD on 09/09/2024 2:04 PM Normal [facility] ACETAMINOPHENon 09-08-2024 Acetaminophen [Mass/Vol] ug/mL Low 10.0-30.0 [facility] Comment on above: Result Comment: Refe rence ranges are for therapeutic limits. Performed By: #### C ANA DAVIS, 3298-7, 4024-6, 5643-2 #### [facility] ([id number]) [address] [place] [address] #### 34737-8 #### [facility] ([id number]) [address], [address] [place] [address] BASIC METABOLIC PANLon 09-08 Anion gap [Moles/Vol] 10 mmol/L Normal 5-[address] [facility] Comment on above: Performed By: #### C BCA, BMP, 3298-7, 4024-6, 5643-2 #### [facility] ([id number]) [address] [place] [address] #### 49525-2 #### [facility] ([id number]) [address] [facility], [address] [place] [address] Calcium [Mass/Vol] 8.8 mg/dL Normal 8.5-10.5 [facility] Comment on above: Performed By: #### C BCA, BMP, 3298-7, 4024-6, 5643-2 #### [facility] ([id number]) [address] [place] [address] #### 04814-7 #### [facility] ([id number]) [address], [address] [place] [address] Chloride [Moles/Vol] 105 mmol/L Normal 98-109 [facility] Comment on above: Performed By: #### C BCA, BMP, 3298-7, 4024-6, 5643-2 #### [facility] ([id number]) [address] [place] [address] #### 24927-4 #### [facility] ([id number]) [address], [address] [place] [address] CO2 [Moles/Vol] 21 mmol/L Low 22-32 [facility] Comment on above: Performed By: #### C BCA, BMP, 3298-7, 4024-6, 5643-2 #### [facility] ([id number]) [facility] [place] [address] #### 25621-1 #### [facility] ([id number]) [address], [facility] [address] [place] [address] Creatinine [Mass/Vol] 0.80 mg/dL Normal 0.60-1.30 [facility] Comment on above: Result Comment: METH OD TRACEABLE TO IDMS STANDARD Performed By: #### C BCA, BMP, 3298-7, 4024-6, 5643-2 #### [facility] ([id number]) [address] [place] [address] #### 14473-9 #### [facility] ([id number]) [address], [address] [address] eGFR (CKD-EPI) NON-RACE DEPENDENT >90 Normal >59 [facility] Comment on above: Result Comment: Reported eGFR is based on the CKD-EPI 2020 equation that does not use a race coefficient. Performed By: #### C BCA, BMP, 3298-7, 4024-6, 5643-2 #### [facility] ([id number]) [address] [place] [address] #### 81059-7 #### [facility] ([id number]) [address] [address] Glucose [Mass/Vol] 90 mg/dL Normal 65-99 [facility] Comment on above: Performed By: #### C BCA, BMP, 3298-7, 4024-6, 5643-2 #### [facility] ([id number]) [address] [place] [address] #### 96542-6 #### [facility] ([id number]) [address], [facility] [address] [place] [address] Potassium [Moles/Vol] 4.0 mmol/L Normal 3.5-5.0 [facility] Comment on above: Performed By: #### C BCA, BMP, 3298-7, 4024-6, 5643-2 #### [facility] ([id number]) [address] [place] [address] #### 46149-8 #### [facility] ([id number]) [address] [place] [address], [address] [address] Sodium [Moles/Vol] 136 mmol/L Normal 134-146 [facility] Comment on above: Performed By: #### C BCA, BMP, 3298-7, 4024-6, 5643-2 #### [facility] ([id number]) [address] [place] [address] 03567 #### 08450-1 #### [facility] ([id number]) [address] [place] [address], [address] [address] Urea nitrogen [Mass/Vol] 15 mg/dL Normal 5-23 [facility] Comment on above: Performed By: #### C SUSAN, BMP, 3298-7, 4024-6, 5643-2 #### [facility] ([id number]) [address] [place] [address] #### 63347-3 #### [facility] ([id number]) [address] [place] [address], [address] [address] CBC AND AUTO DIFFon 09-08-20 24 ABSOLUTE BASOPHIL 0.1 X10E9/L Normal 0.0-0.2 [facility] Comment on above: Performed By: #### C BCA, BMP, 3298-7, 4024-6, 5643-2 #### [facility] ([id number]) [address] [place] [address]65 #### 42160-4 #### [facility] ([id number]) [address] [place] [address], [address] [address] ABSOLUTE NEUTROPHIL 3.1 X10E9/L Normal 1.5-6.6 [facility] Comment on above: Performed By: #### C ANA DAVIS, 3297-7, 4023-6, 5643-2 #### [facility] ([id number]) [address] [place] [address] #### 99783-7 #### [facility] ([id number]) [address] [facility], [facility] [address] [place] [address] Basophils/100 WBC (Bld) 1.3 % Normal [facility] Comment on above: Performed By: #### C SUSAN, ANA, 7, 4023-6, 5643-2 #### [facility] ([id number]) [address] [place] [address]65 #### 88840-8 #### [facility] ([id number]) [address] [facility] [address] [place] [address] Eosinophils (Bld) [#/Vol] 0.4 10*3/uL Normal 0.0-0.4 [facility] Comment on above: Performed By: #### ANA Sheth BCA, 3298-04, 402-6, 5643-2 #### [facility] ([id number]) [address] [place] [address] #### 06420-5 #### [facility] ([id number]) [address] [facility] [address] [place] [address] Eosinophils/100 WBC (Bld) 5.7 % Normal [facility] Comment on above: Performed By: #### ANA Sheth BCA, 329-7, 4024-6, 5643-2 #### [facility] ([id number]) [address] [place] [address] #### 91926-0 #### [facility] ([id number]) [address] [facility], [facility] [address] [place] [address] Erythrocyte distribution width (RBC) [Ratio] 13.3 % Normal 11.5-15.0 [facility] Comment on above: Performed By: #### C ANA DAVIS, 3298-7, 4024-6, 5643-2 #### [facility] ([id number]) [address] [place] [address] #### 54067-6 #### [facility] ([id number]) [address] [place] [address], [address] [place] [address] Hematocrit (Bld) [Volume fraction] 43.8 % Normal 39-49 [facility] Comment on above: Performed By: #### C ANA DAVIS, 3298-7, 4024-6, 5643-2 #### [facility] ([id number]) [address] [place] [address] #### 47148-8 #### [facility] ([id number]) [address] [place] [address], [address] [place] [address] Hemoglobin (Bld) [Mass/Vol] 15.1 g/dL Normal 13.0-17.0 [facility] Comment on above: Performed By: #### C ANA DAVIS, 3298-7, 4024-6, 5643-2 #### [facility] ([id number]) [address] [place] [address] #### 35563-0 #### [facility] ([id number]) [facility], [address] [place] [address] Lymphocytes (Bld) [#/Vol] 3.0 10*3/uL Normal 1.0-3.5 [facility] Comment on above: Performed By: #### C ANA DAVIS, 3298-7, 4024-6, 5643-2 #### [facility] ([id number]) [address] [place] [address] #### 37247-0 #### [facility] ([id number]) [address] [facility], [facility] [address] [place] [address] Lymphocytes/100 WBC (Bld) 42.2 % Normal [facility] Comment on above: Performed By: #### C ANA DAVIS, 3297-7, 4023-6, 5643-2 #### [facility] ([id number]) [address] [place] [address]3398 #### 85870-3 #### [facility] ([id number]) [address] [facility], [facility] [address] [place] [address] MCH (RBC) [Entitic mass] 30.2 pg Normal 27-34 [facility] Comment on above: Performed By: #### C ANA DAVIS, 7, 4023-6, 5643-2 #### [facility] ([id number]) [address] [place] [address] #### 25729-6 #### [facility] ([id number]) [address] [facility] [address] [place] [address] MCHC (RBC) [Mass/Vol] 34.5 g/dL Normal 32-36 [facility] Comment on above: Performed By: #### C ANA DAVIS, 7, 4023-6, 5643-2 #### [facility] ([id number]) [address] [place] [address] #### 47184-6 #### [facility] ([id number]) [address] [facility] [address] [place] [address] MCV (RBC) [Entitic vol] 88 fL Normal 80-100 [facility] Comment on above: Performed By: #### C ANA DAVIS, 3297-7, 4023-6, 5643-2 #### [facility] ([id number]) [address] [place] [address] #### 82803-8 #### [facility] ([id number]) [address] [place] [address] [address] [place] [address] Monocytes (Bld) [#/Vol] 0.5 10*3/uL Normal 0-0.9 [facility] Comment on above: Performed By: #### C ANA DAVIS, 3298-7, 4024-6, 5643-2 #### [facility] ([id number]) [address] [place] [address] #### 04955-8 #### [facility] ([id number]) [address] [facility], [address] [place] [address] Monocytes/100 WBC (Bld) 7.6 % Normal [facility] Comment on above: Performed By: #### C ANA DAVIS, 3298-7, 4024-6, 5643-2 #### [facility] ([id number]) [address] [place] [address] #### 55578-9 #### [facility] ([id number]) [address] [facility], [address] [place] [address] Neutrophils/100 WBC (Bld) 43.2 % Normal [facility] Comment on above: Performed By: #### ANA Sheth BCA, 3298-7, 4024-6, 5643-2 #### [facility] ([id number]) [address] [place] [address] #### 72786-1 #### [facility] ([id number]) [address] [facility], [address] [place] [address] Platelet mean volume (Bld) [Entitic vol] 7.5 fL Normal 7-12 [facility] Comment on above: Performed By: #### ANA Sheth BCA, 3298-7, 402-6, 5643-2 #### [facility] ([id number]) [address] [place] [address] #### 96012-1 #### [facility] ([id number]) [address] [facility], [address] [place] [address] Platelets (Bld) [#/Vol] 237 10*3/uL Normal 150-450 [facility] Comment on above: Performed By: #### C ANA DAVIS, 3298-7, 4-6, 5643-2 #### [facility] ([id number]) [address] [place] [address] #### 11626-6 #### [facility] ([id number]) [address] [place] [address], [address] [place] [address] RBC COUNT 5.00 X10E12/L Normal 4.10-5.70 [facility] Comment on above: Performed By: #### C ANA DAVIS, 3297-, 6, 5643-2 #### [facility] ([id number]) [address] [place] [address] #### 92922-0 #### [facility] ([id number]) [address] [place] [address], [address] [place] [address] WBC (Bld) [#/Vol] 7.2 10*3/uL Normal 4.0-11.0 [facility] Comment on above: Performed By: #### C ANA DAVIS, 3297-7, 4023-6, 5643-2 #### [facility] ([id number]) [address] [place] [address] #### 19932-2 #### [facility] ([id number]) [address] [place] [address], [address] [place] [address] DRUG SCREEN, URINEon 09-08-2 024 AMPHETAMINE/METHAMP Negative Normal [facility] Comment on above: Result Comment: AMPH /METH screening cut off = 1000 ng/mL Performed By: #### C ANA DAVIS, 3297-7, 4023-6, 5643-2 #### [facility] ([id number]) [address] [place] [address] #### 59258-4 #### [facility] ([id number]) [address], [address] [place] [address] BARBITURATES Negative Normal NEG [facility] Comment on above: Result Comment: Yenifer iturates screening cut off value = 200 ng/mL Performed By: #### C BCA, BMP, 3298-7, 4024-6, 5643-2 #### [facility] ([id number]) [address] [place] [address] #### 30062-6 #### [facility] ([id number]) [address] [facility], [address] [place] [address] BENZODIAZEPINES Positive Abnormal NEG [facility] Comment on above: Result Comment: Conf irmation available upon request. Benzodiazepines screening cut off value = 200 ng/mL Performed By: #### C BCA, BMP, 3298-7, 4024-6, 5643-2 #### [facility] ([id number]) [address] [place] [address] #### 04064-1 #### [facility] ([id number]) [address] [facility], [address] [place] [address] CANNABINOIDS Positive Abnormal NEG [facility] Comment on above: Result Comment: Conf irmation available upon request. Cannabinoids/THC screening cut off value = 50 ng/mL Performed By: #### C BCA, BMP, 3298-7, 4024-6, 5643-2 #### [facility] ([id number]) [address] [place] [address] #### 26804-6 #### [facility] ([id number]) [address] [facility], [address] [place] [address] COCAINE METABOLITE Negative Normal NEG [facility] Comment on above: Result Comment: Coca ine screening cut off value = 300 ng/mL Performed By: #### C BCA, BMP, 3298-7, 4024-6, 5643-2 #### [facility] ([id number]) [address] [place] [address] #### 76909-7 #### [facility] ([id number]) [address] [facility], [address] [place] [address] ECSTASY Negative Normal NEG [facility] Comment on above: Result Comment: Ecst asy screening cut off value = 500 ng/mL This report is intended for use in clinical monitoring or management of patients. Performed By: #### C BCA, BMP, 3298-7, 4024-6, 5643-2 #### [facility] ([id number]) [address] [place] [address] #### 94111-4 #### [facility] ([id number]) [facility], [address] [place] [address] METHADONE Negative Normal NEG [facility] Comment on above: Result Comment: Meth adone screening cut off value = 300 ng/mL. Performed By: #### C BCA, BMP, 3298-7, 4024-6, 5643-2 #### [facility] ([id number]) [address] [place] [address] #### 52581-4 #### [facility] ([id number]) [address] [facility], [address] [place] [address] OPIATES Negative Normal [facility] Comment on above: Result Comment: Opia rolando screening cut off value = 300 ng/mL NOTE: This test is used for the detection of codeine, hydrocodone (>1000 ng/mL), morphine and hydromorphone (>900 ng/mL) in urine. Performed By: #### C BCA, BMP, 3298-7, 4024-6, 5643-2 #### [facility] ([id number]) [address] [place] [address]56[address] #### 44643-4 #### [facility] ([id number]) [address] [facility], [address] [place] [address] OXYCODONE Negative Normal NEG [facility] Comment on above: Result Comment: Oxyc odone screening cut off value = 300 ng/mL NOTE: This test is used for the detection of oxycodone and oxymorphone in urine. Performed By: #### C BCA, BMP, 3298-7, 4024-6, 5643-2 #### [facility] ([id number]) [address] [place] [address] #### 57241-7 #### [facility] ([id number]) [address] [place] [address], [address] [place] [address] PHENCYCLIDINE Negative Normal NEG [facility] Comment on above: Result Comment: Phen cyclidine screening cut off value = 25 ng/mL Performed By: #### C SUSAN, BMP, 3298-7, 4024-6, 5643-2 #### [facility] ([id number]) [address] [place] [address]67 #### 77037-7 #### [facility] ([id number]) [address] [place] [address], [address] [place] [address] ETHANOLon 09-08-2024 Ethanol [Mass/Vol] mg/dL Normal 0.00-0.08 [facility] Comment on above: Result Comment: This report is intended for use in clinical monitoring or management of patients. Performed By: #### C BCA, BMP, 3298-7, 4024-6, 5643-2 #### [facility] ([id number]) [address] [place] [address] #### 13156-0 #### [facility] ([id number]) [address] [facility], [address] [place] [address] LIVER PANELon 09-08-2024 Albumin [Mass/Vol] 4.0 g/dL Normal 3.2-5.3 [facility] Comment on above: Performed By: #### C BCA, BMP, 3298-7, 4024-6, 5643-2 #### [facility] ([id number]) [address] [place] [address] 99620 #### 73013-9 #### [facility] ([id number]) [address] [place] [address], [facility] [address] [place] [address] ALP [Catalytic activity/Vol] 50 U/L Normal 39-130 [facility] Comment on above: Performed By: #### C BCA, BMP, 3298-7, 4024-6, 5643-2 #### [facility] ([id number]) [address] [place] [address] #### 86648-3 #### [facility] ([id number]) [address] [place] [address], [facility] [address] [place] [address] ALT [Catalytic activity/Vol] 28 U/L Normal 0-40 [facility] Comment on above: Performed By: #### C BCA, BMP, 3298-7, 4024-6, 5643-2 #### [facility] ([id number]) [address] [place] [address]776 #### 78634-6 #### [facility] ([id number]) [address] [place] [address], [address] [address] AST [Catalytic activity/Vol] 27 U/L Normal 0-41 [facility] Comment on above: Performed By: #### C BCA, BMP, 3298-7, 4024-6, 5643-2 #### [facility] ([id number]) [address] [place] [address] 72290 #### 70593-3 #### [facility] ([id number]) [address] [place] [address], [facility] [address] [place] [address] Bilirubin [Mass/Vol] 0.9 mg/dL Normal 0.3-1.2 [facility] Comment on above: Performed By: #### C BCA, BMP, 3298-7, 4024-6, 5643-2 #### [facility] ([id number]) [address] [place] [address] #### 78681-1 #### [facility] ([id number]) [address] [place] [address], [facility] [address] [place] [address] Bilirubin.direct [Mass/Vol] 0.1 mg/dL Normal 0.0-0.4 [facility] Comment on above: Performed By: #### C BCA, BMP, 3298-7, 4024-6, 5643-2 #### [facility] ([id number]) [address] [place] [address] #### 11527-4 #### [facility] ([id number]) [address] [place] [address], [address] [address] Protein [Mass/Vol] 6.4 g/dL Normal 6.0-8.0 [facility] Comment on above: Performed By: #### C BCA, BMP, 3297-7, 4024-6, 5643-2 #### [facility] ([id number]) [address] [place] [address] 81705 #### 47967-4 #### [facility] ([id number]) [address] [place] [address], [address] [id number] Salicylates [Mass/Vol]on SALICYLATE <2.5 Normal 2.0-25.0 [facility] Comment on above: Result Comment: Refe rence ranges are for therapeutic limits. Performed By: #### C BCA, BMP, 3297-7, 4024-6, 5643-2 #### [facility] ([id number]) [address] [place] [address] #### [id number] #### [facility] ([id number]) [address] [place] [address], [address] [address] Tricyclic antidepressants [M ass/Vol]on 09-08-2024 TRICYCLICS Negative Normal NEG [facility] Comment on above: Performed By: #### C BCA, BMP, 8-7, 4024-6, 5643-2 #### [facility] ([id number]) [address] [place] [address] #### [id number] #### [facility] ([id number]) [address], [address] [place] [address] DSon 09-06-2024 DS Discharge Date: 08/26 Time Spent with Patient: 31 minutes spent with patient, discussing discharge instructions, ordering medications, reviewing lab work, communicating with other healthcare professionals, documenting clinical information and the patient's follow-up plan. Chief Complaint: Alcohol abuse and withdrawal Consults: GIM History of Present Illness: Daron Villarreal presented to [facility] for alcohol abuse and withdrawal. Patient reported [...] Normal mg/dL Bilirubin, Urine Negative Negative Specific [place], Urine 1.017 1.010 - 1.030 Ketones, Urine [...] and at (more content not included)... Normal [facility] 09-06-2024 Chief Complaint: Alc ohol abuse and withdrawal Consults: GIM History of Present Illness: Daron Villarreal presented to [facility] for alcohol abuse and withdrawal. Patient reported [...] Normal mg/dL Bilirubin, Urine Negative Negative Specific [place], Urine 1.017 1.010 - 1.030 Ketones, Urine [...] SEROquel Smitha stone (more content not included)... [facility] NURSNOTEon 09-06-2024 NURSNOTE Keg Inspector was on break and heard patient yelling [...] to leave. Dr. Chauhan said okay. 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 Patient signed AMA paper and security escorted out. Normal [facility] JODY Vital signs complete d. Patient complains of the shakes and unable to sleep. No visible tremor seen or felt. Explained to patient he had trazodone already per his request. Patient states: I guess I'll just lay her all night awake. Keg Inspector gave report to lead rn who is covering break. Normal [facility] ACETAMINOPHEN LEVELon 2023 ACETAMINOPHEN (UG/ML) IN SER/PLAS <10 Low 10-30 [facility] Comment on above: Performed By: #### L [id number] #### [facility] ([facility]) [address] [place] [address] BASIC METABOLIC PANELon 11- Anion gap [Moles/Vol] 11 mmol/L Normal 7-20 [place] Comment on above: Performed By: #### L [id number] #### [facility] ([facility]) [address] [place] [address] Calcium [Mass/Vol] 9.0 mg/dL Normal 8.6-10.3 [facility] Comment on above: Performed By: #### L [id number] #### [facility] ([facility]) [address] [place] [address] Chloride [Moles/Vol] 105 mmol/L Normal 98-107 [facility] Comment on above: Performed By: #### L [id number] #### [facility] ([facility]) [address] [place] [address] CO2 [Moles/Vol] 25 mmol/L Normal 21-31 [facility] Comment on above: Performed By: #### L [id number] #### [facility] ([facility]) [address] [place] [address] Creatinine [Mass/Vol] 0.83 mg/dL Normal 0.70-1.30 [place] Comment on above: Performed By: #### L [id number] #### [facility] ([facility]) [address] [place] [address] GLOMERULAR FILTRATION RATE ML/MIN/1.73 SQ M.PREDICTED 113.5 mL/min/1.73m*2 Normal >60.0 [facility] Comment on above: Result Comment: The [facility]???s estimated glomerular filtration rate (eGFR) will no [...] individuals. Performed By: #### L [id number] #### [facility] ([facility]) [address] [place] [address] Glucose [Mass/Vol] 80 mg/dL Normal 70-100 [facility] Comment on above: Performed By: #### L [id number] #### [facility] ([facility]) [address] [place] [address] Potassium [Moles/Vol] 3.9 mmol/L Normal 3.5-5.1 [facility] Comment on above: Performed By: #### L [id number] #### [facility] ([facility]) [address] [place] [address] Sodium [Moles/Vol] 137 mmol/L Normal 136-145 [facility] Comment on above: Performed By: #### L [id number] #### [facility] ([facility]) [address] [place] [address] Urea nitrogen [Mass/Vol] 14 mg/dL Normal 7-25 [facility] Comment on above: Performed By: #### L [id number] #### [facility] ([facility]) [address] [place] [address] UREA NITROGEN/CREATININE (MASS RATIO) IN SER/PLAS 16.9 Normal [facility] Comment on above: Performed By: #### L [id number] #### [facility] ([facility]) [address] [place] [address] CBC WITH AUTO DIFFERENTIALon 09-05-2024 Basophils (Bld) [#/Vol] 0.12 10*3/uL Normal 0.00-0.20 [facility] Comment on above: Performed By: #### L [id number] #### [facility] ([facility]) [address] [place] [address] Basophils/100 WBC (Bld) 1.7 % High 0.0-1.0 [facility] Comment on above: Performed By: #### L [id number] #### [facility] ([facility]) [address] [place] [address] Eosinophils (Bld) [#/Vol] 0.31 10*3/uL Normal 0.00-0.50 [facility] Comment on above: Performed By: #### L [id number] #### [facility] ([facility]) [address] [place] [address] Eosinophils/100 WBC (Bld) 4.3 % Normal 0.0-6.0 [facility] Comment on above: Performed By: #### L [id number] #### [facility] [address] [place] [address] Erythrocyte distribution width (RBC) [Ratio] 12.5 % Normal 11.5-15.0 [facility] Comment on above: Performed By: #### L [id number] #### [facility] [address] [place] [address] ERYTHROCYTE MEAN CORPUSCULAR HEMOGLOBIN CONCENTRATION (G/DL) BY AUTOMATED 34.7 g/dL Normal 32.0-35.0 [facility] Comment on above: Performed By: #### L [id number] #### [facility] ([facility]) [address] [place] [address] Hematocrit (Bld) [Volume fraction] 44.1 % Normal 39.0-55.0 [facility] Comment on above: Performed By: #### L [id number] #### [facility] ([facility]) [address] [place] [address] Hemoglobin (Bld) [Mass/Vol] 15.3 g/dL Normal 13.0-17.0 [facility] Comment on above: Performed By: #### L [id number] #### [facility] ([facility]) [address] [place] [address] Immature granulocytes (Bld) [#/Vol] 0.03 10*3/uL Normal 0.00-0.20 [facility] Comment on above: Performed By: #### L [id number] #### [facility] ([facility]) [address] [place] [address] Immature granulocytes/100 WBC (Bld) 0.4 % Normal 0.0-1.0 [facility] Comment on above: Performed By: #### L [id number] #### [facility] ([facility]) [address] [place] [address] Lymphocytes (Bld) [#/Vol] 2.56 10*3/uL Normal 1.20-4.00 [facility] Comment on above: Performed By: #### L [id number] #### [facility] ([facility]) [address] [place] [address] Lymphocytes/100 WBC (Bld) 35.8 % Normal 20.0-45.0 [facility] Comment on above: Performed By: #### L [id number] #### [facility] ([facility]) [address] [place] [address] MCH (RBC) [Entitic mass] 30.1 pg Normal 27.0-33.0 [facility] Comment on above: Performed By: #### L [id number] #### [facility] ([facility]) [address] [place] [address] MCV (RBC) [Entitic vol] 86.8 fL Normal 82.0-98.0 [facility] Comment on above: Performed By: #### L [id number] #### [facility] ([facility]) [address] [place] [address] Monocytes (Bld) [#/Vol] 0.70 10*3/uL Normal 0.10-1.00 [facility] Comment on above: Performed By: #### L [id number] #### [facility] ([facility]) [address] [place] [address] Monocytes/100 WBC (Bld) 9.8 % Normal 5.0-12.0 [facility] Comment on above: Performed By: #### L [id number] #### [facility] ([facility]) [address] [place] [address] Neutrophils (Bld) [#/Vol] 3.43 10*3/uL Normal 1.60-7.60 [facility] Comment on above: Performed By: #### L [id number] #### [facility] ([facility]) [address] [place] [address] Neutrophils/100 WBC (Bld) 48.0 % Normal 40.0-72.0 [facility] Comment on above: Performed By: #### L [id number] #### [facility] ([facility]) [address] [place] [address] NRBC (PER 100 WBCS) BY AUTOMATED COUNT 0.0 % Normal 0 [facility] Comment on above: Performed By: #### L [id number] #### [facility] ([facility]) [address] [place] [address] PLATELETS (10*3/UL) IN BLOOD AUTOMATED COUNT 238 10*3/uL Normal 150-400 [facility] Comment on above: Performed By: #### L [id number] #### [facility] ([facility]) [address] [place] [address] RBC (Bld) [#/Vol] 5.08 10*6/uL Normal 4.20-5.70 [facility] Comment on above: Performed By: #### L [id number] #### [facility] ([facility]) [address] [place] [address] WBC (Bld) [#/Vol] 7.15 10*3/uL Normal 4.00-10.60 [facility] Comment on above: Performed By: #### L [id number] #### [facility] ([facility]) [address] [place] [address] CHOLESTEROL, TOTALon 09-05- 024 Cholesterol [Mass/Vol] 199 mg/dL Normal 120-200 [facility] Comment on above: Result Comment: CHOL ESTEROL REFERENCE RANGE: 20 YEARS AND OLDER CARDIOVASCULAR RISK Less than 200 mg/dL Low Risk 200 to 239 mg/dL Borderline Risk 240 mg/dL and greater High Risk Performed By: #### L [id number] #### [facility] ([facility]) [address] [place] [address] DETOX PANEL URINEon 11-11-20 24 AMPHETAMINE+METHAMPHE TAMINE SCREEN (PRESENCE) IN URINE Negative Normal Negative [facility] Comment on above: Performed By: #### L [id number] #### [facility] ([facility]) [address] [place] [address] BARBITURATES PRESENCE IN URINE BY SCREEN METHOD Negative Normal Negative [facility] Comment on above: Performed By: #### L [id number] #### [facility] ([facility]) [address] [place] [address] Benzodiazepines Ql (U) Positive Abnormal Negative [facility] Comment on above: Performed By: #### L [id number] #### [facility] ([facility]) [address] [place] [address] CANNABINOID (PRESENCE) IN URINE BY SCREEN METHOD Positive Abnormal Negative [facility] Comment on above: Performed By: #### L [id number] #### [facility] ([facility]) [address] [place] [address] Cocaine Ql (U) Negative Normal Negative [facility] Comment on above: Performed By: #### L [id number] #### [facility] ([facility]) [address] [place] [address] METHADONE (PRESENCE) IN URINE BY SCREEN METHOD Negative Normal Negative [facility] Comment on above: Performed By: #### L [id number] #### [facility] ([facility]) [address] [place] [address] OPIATES (PRESENCE) IN URINE BY SCREEN METHOD Negative Normal Negative [facility] Comment on above: Performed By: #### L [id number] #### [facility] ([facility]) [address] [place] [address] PHENCYCLIDINE PRESENCE IN URINE BY SCREEN METHOD Negative Normal Negative [facility] Comment on above: Performed By: #### L [id number] #### [facility] ([facility]) [address] [place] [address] Propoxyphene Screen Ql (U) Negative Normal Negative [facility] Comment on above: Performed By: #### L [id number] #### [facility] [address] [place] [address] TRICYCLIC ANTIDEPRESSANTS (PRESENCE) IN URINE Negative Normal Negative [facility] Comment on above: Performed By: #### L [id number] #### [facility] ([facility]) [address] [place] [address] ETHANOLon 09-05-2024 ETHANOL (MG/DL) IN SER/PLAS <10 Normal [facility] Comment on above: Performed By: #### L [id number] #### [facility] ([facility]) [address] [place] [address] ETHANOL CALCULATED (%) Normal [facility] Comment on above: Performed By: #### L [id number] #### [facility] [address] [place] [address] GAMMA GTon 09-05-2024 Amylase [Catalytic activity/Vol] 23 U/L Normal 9-64 [facility] Comment on above: Performed By: #### L [id number] #### [facility] ([facility]) [address] [place] [address] HEPATIC FUNCTION PANELon Albumin [Mass/Vol] 4.2 g/dL Normal 3.5-5.7 [facility] Comment on above: Performed By: #### L [id number] #### [facility] ([facility]) [address] [place] [address] ALP [Catalytic activity/Vol] 45 U/L Normal 34-104 [facility] Comment on above: Performed By: #### L [id number] #### [facility] ([facility]) [address] [place] [address] ALT [Catalytic activity/Vol] 25 U/L Normal 7-52 [facility] Comment on above: Performed By: #### L [id number] #### [facility] ([facility]) [address] [place] [address] AST [Catalytic activity/Vol] 20 U/L Normal 13-39 [facility] Comment on above: Performed By: #### L [id number] #### [facility] ([facility]) [address] [place] [address] Bilirubin [Mass/Vol] 0.7 mg/dL Normal 0.3-1.0 [facility] Comment on above: Performed By: #### L [id number] #### [facility] ([facility]) [address] [place] [address] Magnesium [Mass/Vol] 0.1 mg/dL Normal 0-0.2 [facility] Comment on above: Performed By: #### L [id number] #### [facility] ([facility]) [address] [place] [address] Protein [Mass/Vol] 6.7 g/dL Normal 6.0-8.3 [facility] Comment on above: Performed By: #### L [id number] #### [facility] ([facility]) [address] [place] [address] MAGNESIUMon 09-05-2024 Magnesium [Mass/Vol] 1.9 mg/dL Normal 1.9-2.7 [facility] Comment on above: Performed By: #### L [id number] #### [facility] ([facility]) [address] [place] [address] NURSNOTEon 09-05-2024 NURSNOTE Evening meds given a long with PRN bentyl for stomach cramps and vistaril for anxiety. Patient denies any other needs at this time. Normal [facility] NURSNOTE Vital signs and asse ssment completed. Patient complains of anxiety, restlessness, and stomach cramps. No sweating or tremor noted. Will give PRNs. Normal [facility] NURSNOTE Patient feeling anxi ous asked for clonidine, states that he doesn't like vistaril or gabapentin. Normal [facility] NURSNOTE Patient admitted wit h intentions to withdrawal from alcohol. States he will have 10 drinks of any kind throughout the day. States he recently went from drinking beers regularly to switching to hard liquor. Last drink was about noon today. Patient compliant with the check in process. States he feels his bipolar depression is impacting him daily. CIWA is currently 0. Normal [facility] PHOSPHORUSon 09-05-2024 Magnesium [Mass/Vol] 4.3 mg/dL Normal 2.5-5.0 [facility] Comment on above: Performed By: #### L [id number] #### [facility] ([facility]) [address] [place] [address] RPRon 09-05-2024 REAGIN AB PRESENCE IN SERUM BY RPR Non-Reactive Normal Nonreactive [facility] Comment on above: Performed By: #### L [id number] #### [facility] ([facility]) [address] [place] [address] TSHon 09-05-2024 THYROTROPIN (MIU/L) IN SER/PLAS BY DETECTION LIMIT <= 0.05 MIU/L 1.65 mIU/L Normal 0.34-5.60 [facility] Comment on above: Performed By: #### L [id number] #### [facility] ([facility]) [address] [place] [address] URIC ACIDon 09-05-2024 Magnesium [Mass/Vol] 5.6 mg/dL Normal 4.4-7.6 [facility] Comment on above: Performed By: #### L [id number] #### [facility] ([facility]) [address] [place] [address] URINALYSISon 09-05-2024 BILIRUBIN, TOTAL PRESENCE IN URINE Negative Normal Negative [facility] Comment on above: Order Comment: Micro scopics not performed on urines with negative chemical reactions unless requested on original order. Performed By: #### L [id number] #### [facility] ([facility]) [address] [place] [address] Clarity (U) Clear Normal Clear [facility] Comment on above: Order Comment: Micro scopics not performed on urines with negative chemical reactions unless requested on original order. Performed By: #### L [id number] #### [facility] ([facility]) [address] [place] [address] Color (U) Light-Yellow Normal Colorless, Yellow, Light-Yellow [facility] Comment on above: Order Comment: Micro scopics not performed on urines with negative chemical reactions unless requested on original order. Performed By: #### L [id number] #### [facility] ([facility]) [address] [place] [address] GLUCOSE (MG/DL) IN URINE Normal Normal Normal [facility] Comment on above: Order Comment: Micro scopics not performed on urines with negative chemical reactions unless requested on original order. Performed By: #### L [id number] #### [facility] ([facility]) [address] [place] [address] HEMOGLOBIN PRESENCE IN URINE Negative Normal Negative [facility] Comment on above: Order Comment: Micro scopics not performed on urines with negative chemical reactions unless requested on original order. Performed By: #### L [id number] #### [facility] ([facility]) [address] [place] [address] Ketones Ql (U) Negative Normal Negative [facility] Comment on above: Order Comment: Micro scopics not performed on urines with negative chemical reactions unless requested on original order. Performed By: #### L [id number] #### [facility] ([facility]) [address] [place] [address] LEUKOCYTE ESTERASE PRESENCE IN URINE BY TEST STRIP Negative Normal Negative [facility] Comment on above: Order Comment: Micro scopics not performed on urines with negative chemical reactions unless requested on original order. Performed By: #### L [id number] #### [facility] ([facility]) [address] [place] [address] NITRITE PRESENCE IN URINE Negative Normal Negative [facility] Comment on above: Order Comment: Micro scopics not performed on urines with negative chemical reactions unless requested on original order. Performed By: #### L [id number] #### [facility] [address] [place] [address] pH (U) 5.5 [pH] Normal 5.0-8.0 [facility] Comment on above: Order Comment: Micro scopics not performed on urines with negative chemical reactions unless requested on original order. Performed By: #### L [id number] #### [facility] ([facility]) [address] [place] [address] Protein (U) [Mass/Vol] Negative Normal Negative [facility] Comment on above: Order Comment: Micro scopics not performed on urines with negative chemical reactions unless requested on original order. Performed By: #### L [id number] #### [facility] ([facility]) [address] [place] [address] Specific gravity (U) [Rel density] 1.017 Normal 1.010-1.030 [facility] Comment on above: Order Comment: Micro scopics not performed on urines with negative chemical reactions unless requested on original order. Performed By: #### L [id number] #### [facility] ([facility]) [address] [place] [address] UROBILINOGEN (MG/DL) IN URINE Normal Normal Normal [facility] Comment on above: Order Comment: Micro scopics not performed on urines with negative chemical reactions unless requested on original order. Performed By: #### L [id number] #### [facility] ([facility]) [address] [place] [address] Comp Metabolic Profon 2023 Albumin [Mass/Vol] 4.0 g/dL Normal 3.5-5.2 [facility] Comment on above: Performed By: #### F T4, CP, TSHX, CBC, EDTOX #### [facility] [address] [place] [address] Caregiver Services Home: Jesús Bhatt DO Alkaline Phos 61 U/L Normal 40-129 [facility] Comment on above: Performed By: #### F T4, CP, TSHX, CBC, EDTOX #### [facility] [address] [place] [address] Caregiver Services Home: Jesús Bhatt DO Protein [Mass/Vol] 6.7 g/dL Normal 6.6-8.7 [facility] Comment on above: Performed By: #### F T4, CP, TSHX, CBC, EDTOX #### [facility] [address] [place] [address] Caregiver Services Home: Jesús Bhatt DO ALT [Catalytic activity/Vol] 31 U/L Normal 10-50 [facility] Comment on above: Performed By: #### F T4, CP, TSHX, CBC, EDTOX #### [facility] [address] [place] [address] Caregiver Services Home: Jesús Bhatt DO Anion gap [Moles/Vol] 13 mmol/L Normal 9-16 [facility] Comment on above: Performed By: #### F T4, CP, TSHX, CBC, EDTOX #### [facility] [address] [place] [address] Caregiver Services Home: Jesús Bhatt DO AST [Catalytic activity/Vol] 28 U/L Normal 10-50 [facility] Comment on above: Performed By: #### F T4, CP, TSHX, CBC, EDTOX #### [facility] [address] [place] [address] Caregiver Services Home: Jesús Bhatt DO Bilirubin [Mass/Vol] 0.3 mg/dL Normal 0.0-1.2 [facility] Comment on above: Performed By: #### F T4, CP, TSHX, CBC, EDTOX #### [facility] [address] [place] [address] Caregiver Services Home: Jesús Bhatt DO Calcium [Mass/Vol] 8.7 mg/dL Normal 8.6-10.4 [facility] Comment on above: Performed By: #### F T4, CP, TSHX, CBC, EDTOX #### [facility] [address] [place] [address] Caregiver Services Home: Jesús Bhatt DO Chloride [Moles/Vol] 104 mmol/L Normal 98-107 [facility] Comment on above: Performed By: #### F T4, CP, TSHX, CBC, EDTOX #### [facility] [address] [place] [address] Caregiver Services Home: Jesús Bhatt DO CO2 [Moles/Vol] 20 mmol/L Normal 20-31 [facility] Comment on above: Performed By: #### F T4, CP, TSHX, CBC, EDTOX #### [facility] [address] [facility] [place] [address] Caregiver Services Home: Jesús Bhatt DO Creatinine [Mass/Vol] 1.1 mg/dL Normal 0.7-1.2 [facility] Comment on above: Performed By: #### F T4, CP, TSHX, CBC, EDTOX #### [facility] [address] [facility] [place] [address] Caregiver Services Home: Jesús Bhatt DO GFR/1.73 sq M.predicted among non-blacks MDRD (S/P/Bld) [Vol rate/Area] 88 mL/min/{1.73_m2} Normal >60 [facility] Comment on above: Result Comment: These [...] F T4, CP, TSHX, CBC, EDTOX #### [facility] [address] [facility] [place] [address] Caregiver Services Home: Jesús Bhatt DO Glucose [Mass/Vol] 93 mg/dL Normal 74-99 [facility] Comment on above: Performed By: #### F T4, CP, TSHX, CBC, EDTOX #### [facility] [address] [place] [address] Caregiver Services Home: Jesús Bhatt DO Potassium [Moles/Vol] 4.0 mmol/L Normal 3.7-5.3 [facility] Comment on above: Result Comment: Spec imen hemolysis has exceeded the interference as defined by [place]. Value may be falsely increased. Suggest recollection if clinically indicated. Performed By: #### F T4, CP, TSHX, CBC, EDTOX #### [facility] [address] [place] [address] Caregiver Services Home: Jesús Bhatt DO Sodium [Moles/Vol] 137 mmol/L Normal 136-145 [facility] Comment on above: Performed By: #### F T4, CP, TSHX, CBC, EDTOX #### [facility] [address] [place] [address] Caregiver Services Home: Jesús Bhatt DO Urea nitrogen [Mass/Vol] 22 mg/dL High 6-20 [facility] Comment on above: Performed By: #### F T4, CP, TSHX, CBC, EDTOX #### [facility] [address] [place] [address] Caregiver Services Home: Jesús Bhatt DO TSH w/reflex to FT4on 2023 Thyroid Stim. Horm. 6.46 uIU/mL High 0.27-4.20 [facility] Comment on above: Performed By: #### F T4, CP, TSHX, CBC, EDTOX #### [facility] [address] [place] [address] Caregiver Services Home: Jesús Bhatt DO Thyroxine, Freeon 09-01-2024 Thyroxine, Free 1.0 ng/dL Normal 0.9-1.7 [facility] Comment on above: Performed By: #### F T4, CP, TSHX, CBC, EDTOX #### [facility] [address] [place] [address] Caregiver Services Home: Jesús Bhatt DO Tox Scr, Bld, EDon Acetaminophen [Mass/Vol] ug/mL Low 10-30 [facility] Comment on above: Performed By: #### F T4, CP, TSHX, CBC, EDTOX #### [facility] [address] [place] [address] Caregiver Services Home: Jesús Bhatt DO Ethanol [Mass/Vol] mg/dL Normal <10 [facility] Comment on above: Performed By: #### F T4, CP, TSHX, CBC, EDTOX #### [facility] [address] [place] [address] Caregiver Services Home: Jesús Bhatt DO Ethanol percent Can not be calculated Normal <0.010 [facility] Comment on above: Performed By: #### F T4, CP, TSHX, CBC, EDTOX #### [facility] [address] [place] [address] Caregiver Services Home: Jesús Bhatt DO Salicylate <1.0 Normal 0.0-10.0 [facility] Comment on above: Performed By: #### F T4, CP, TSHX, CBC, EDTOX #### [facility] [address] [place] [address] Caregiver Services Home: Jesús Bhatt DO CBCon 08-31-2024 Erythrocyte distribution width (RBC) [Ratio] 13.1 % Normal 11.5-14.9 [facility] Comment on above: Performed By: #### F T4, CP, TSHX, CBC, EDTOX #### [facility] [address] [place] [address] Caregiver Services Home: Jesús Bhatt DO Hematocrit (Bld) [Volume fraction] 43.3 % Normal 41-53 [facility] Comment on above: Performed By: #### F T4, CP, TSHX, CBC, EDTOX #### [facility] [address] [facility] [place] [address] Caregiver Services Home: Jesús Bhatt DO Hemoglobin (Bld) [Mass/Vol] 15.2 g/dL Normal 13.5-17.5 [facility] Comment on above: Performed By: #### F T4, CP, TSHX, CBC, EDTOX #### [facility] [facility] [place] [address] Caregiver Services Home: Jesús Bhatt DO MCH (RBC) [Entitic mass] 31.4 pg Normal 26-34 [facility] Comment on above: Performed By: #### F T4, CP, TSHX, CBC, EDTOX #### [facility] [place] [address] Caregiver Services Home: Jesús Bhatt DO MCHC (RBC) [Mass/Vol] 35.2 g/dL Normal 31-37 [facility] Comment on above: Performed By: #### F T4, CP, TSHX, CBC, EDTOX #### [facility] [place] [address] Caregiver Services Home: Jesús Bhatt DO MCV (RBC) [Entitic vol] 89.0 fL Normal 80-100 [facility] Comment on above: Performed By: #### F T4, CP, TSHX, CBC, EDTOX #### [facility] [place] [address] Caregiver Services Home: Jesús Bhatt DO Platelet mean volume (Bld) [Entitic vol] 7.5 fL Normal 6.0-12.0 [facility] Comment on above: Performed By: #### F T4, CP, TSHX, CBC, EDTOX #### [facility] [address] [place] [address] Caregiver Services Home: Jesús Bhatt DO Platelets (Bld) [#/Vol] 247 10*3/uL Normal 150-450 [facility] Comment on above: Performed By: #### F T4, CP, TSHX, CBC, EDTOX #### [facility] [address] [place] [address] Caregiver Services Home: Jesús Bhatt DO RBC (Bld) [#/Vol] 4.86 10*6/uL Normal 4.5-5.9 [facility] Comment on above: Performed By: #### F T4, CP, TSHX, CBC, EDTOX #### [facility] [place] [address] Caregiver Services Home: Jesús Bhatt DO WBC (Bld) [#/Vol] 9.0 10*3/uL Normal 3.5-11.0 [facility] Comment on above: Performed By: #### F T4, CP, TSHX, CBC, EDTOX #### [facility] [place] [address] Caregiver Services Home: Jesús Bhatt DO Drug Scr, Abuse, Uron 2023 Amphetamine(s),Ur Negative Normal NEG [facility] Comment on above: Result Comment: Cuto ff: 1000 ng/mL Performed By: #### U TAD, LATASHA #### [facility] [address] [place] [address] Caregiver Services Home: Jesús Bhatt DO Barbiturate(s),Ur Negative Normal NEG [facility] Comment on above: Result Comment: Cuto ff: 200 ng/ml Performed By: #### U TAD, LATASHA #### [facility] [address] [place] [address] Caregiver Services Home: Jesús Bhatt DO Benzodiazepine(s) Positive Abnormal NEG [facility] Comment on above: Result Comment: Cuto ff: 200 ng/ml Performed By: #### U TAD, LATASHA #### [facility] [address] [place] [address] Caregiver Services Home: Jesús Bhatt DO Cannabinoid(s),Ur Positive Abnormal NEG [facility] Comment on above: Result Comment: Cuto ff: 50 ng/ml Performed By: #### U TAD, LATASHA #### [facility] [address] [place] [address] Caregiver Services Home: Jesús Bhatt DO Cocaine Metabolite Negative Normal NEG [facility] Comment on above: Result Comment: Cuto ff: 300 ng/ml Performed By: #### U TAD, LATASHA #### [facility] [address] [place] [address] Caregiver Services Home: Jesús Bhatt DO Fentanyl, Urine Negative Normal NEG [facility] Comment on above: Result Comment: Cuto ff: 5 ng/ml Performed By: #### U TAD, LATASHA #### [facility] [address] [place] [address] Caregiver Services Home: Jesús Bhatt DO Methadone Ql (U) Negative Normal NEG [facility] Comment on above: Result Comment: Cuto ff: 300 ng/ml Performed By: #### U TAD, LATASHA #### [facility] [address] [place] [address] Caregiver Services Home: Jesús Bhatt DO Opiate(s), Ur Negative Normal NEG [facility] Comment on above: Result Comment: Cuto ff: 300 ng/ml Performed By: #### U TAD, LATASHA #### [facility] [address] [facility] [place] [address] Caregiver Services Home: Jesús Bhatt DO Oxycodone, Urine Negative Normal NEG [facility] Comment on above: Result Comment: Cuto ff: 100 ng/ml Performed By: #### U MARLENE, LATASHA #### [facility] [address] [facility] [place] [address] Caregiver Services Home: Jesús Bhatt DO Phencyclidine, Ur Negative Normal NEG [facility] Comment on above: Result Comment: Cuto ff: 25 ng/ml Performed By: #### U TAD, LATASHA #### [facility] [address] [place] [address]. [place] [address] Caregiver Services Home: Jesús Bhatt DO Interpretive Info This method is a scr eening test to detect only these drug classes as part of a Normal [facility] Comment on above: Result Comment: medi helen workup. Confirmatory testing by another method should be ordered if clinically indicated. Performed By: #### Alex ROSARIO, LATASHA #### [facility] [place] [address] Caregiver Services Home: Jesús Bhatt DO Ur.Tricyclic Antidepon 08-31 Ur.Tricyclic Antidep Negative Normal NEG [facility] Comment on above: Result Comment: (Positive cutoff 1000 ng/mL) Assay provides rapid clinical screening only. Presumptive positive results for legal purposes should be confirmed by another method. To request confirmation, please call the lab within 7 days of sample submission. Performed By: #### U MARLENE, LATASHA #### [facility] [address] [facility] [place] [address] Caregiver Services Home: Jesús Bhatt DO C Woundon 08-30-2024 C Wound Normal [facility] Comment on above: Performed By: #### W DC ####[facility] (DEFAULT)[address] [place], [place] [address] [facility] [place] [address] .Fentanyl Scrn wo Conf,Uron 08-29-2024 Ur Fentanyl Scrn Negative Normal NEG <1.0 [facility] Comment on above: Performed By: #### C D:[id number] ####[facility] [place] [address] Ur Fentanyl Scrn Qnt 0.30 ng/mL Normal <=0.99 [facility] Comment on above: Performed By: #### C D:[id number] ####[address] [place] [address] .eGFRon 08-29-2024 GFR/1.73 sq M.predicted MDRD (S/P/Bld) [Vol rate/Area] mL/min/{1.73_m2} Normal >=60 [facility] Comment on above: Result Comment: [facility] Laboratories have implemented the eGFR calculation approach [...] = years Performed By: #### E GFR ####[facility] [place] [address] CMPon 08-29-2024 Albumin [Mass/Vol] 4.2 g/dL Normal 3.2-4.9 [facility] Comment on above: Performed By: #### C OMP ####[address] [address] Albumin/Globulin [Mass ratio] 1.4 {ratio} Normal 1.1-2.2 [facility] Comment on above: Performed By: #### C OMP ####[address] [address] Alk Phos 44 IU/L Normal 32-91 [facility] Comment on above: Performed By: #### C OMP ####[address] [address] ALT [Catalytic activity/Vol] 32 U/L Normal 17-63 [facility] Comment on above: Performed By: #### C OMP ####[address] [address] Anion gap [Moles/Vol] 9 mmol/L Normal 4-12 [facility] Comment on above: Performed By: #### C OMP ####[address] [address] AST [Catalytic activity/Vol] 31 U/L Normal 15-41 [facility] Comment on above: Performed By: #### C OMP ####[address] [address] Bili Total 1.3 mg/dL High 0.3-1.2 [facility] Comment on above: Performed By: #### C OMP ####[address] [address] Calcium [Mass/Vol] 9.1 mg/dL Normal 8.5-10.3 [facility] Comment on above: Performed By: #### C OMP ####[address] [address] Chloride [Moles/Vol] 102 mmol/L Normal 98-110 [facility] Comment on above: Performed By: #### C OMP ####[address] [address] CO2 [Moles/Vol] 24 mmol/L Normal 22-32 [facility] Comment on above: Performed By: #### C OMP ####[address] [address] Creatinine [Mass/Vol] 1.07 mg/dL Normal 0.61-1.24 [facility] Comment on above: Performed By: #### C OMP ####[address] [address] Glucose [Mass/Vol] 89 mg/dL Normal 70-99 [facility] Comment on above: Performed By: #### C OMP ####[address] [address] Potassium [Moles/Vol] 4.2 mmol/L Normal 3.4-4.8 [facility] Comment on above: Performed By: #### C OMP ####[address] [address] Protein [Mass/Vol] 7.3 g/dL Normal 6.5-8.1 [facility] Comment on above: Performed By: #### C OMP ####[address] [address] Sodium [Moles/Vol] 135 mmol/L Normal 133-142 [facility] Comment on above: Performed By: #### C OMP ####[address] [address] Urea nitrogen [Mass/Vol] 17 mg/dL Normal 8-26 [facility] Comment on above: Performed By: #### C OMP ####[address] [address] Urea nitrogen/Creatinine [Mass ratio] 15.9 mg/mg Normal 10.0-20.0 [facility] Comment on above: Performed By: #### C OMP ####[address] [address] ED Clinical Summaryon 2023 ED Clinical Summary Normal [facility] ED Note-Nursingon 08-29-2024 ED Note-Nursing Pt verbally abusive to nursing staff, and security .FPD x 4 in with pt Mona Perez Normal [facility] ED Note-Physicianon 08-29-20 ED Note-Physician Normal [facility] Ethanolon 08-29-2024 Ethanol, Plasma <10 Normal <=9 [facility] Comment on above: Result Comment: To c onvert mg/dL to g/dL, divide result by 1,000. Legal limit of intoxication is 80 mg/dL (0.08 g/dL). Performed By: #### A LC ####[place] [address] Inpatient Clinical Summaryon 08-29-2024 Inpatient Clinical Summary Normal [facility] Progress Note-Nurseon 2023 Progress Note-Nurse Normal [facility] UDS Compon 08-29-2024 Creatinine [Mass/Vol] 97.0 mg/dL Normal [facility] Comment on above: Performed By: #### C D:[id number] ####[address] [address] Ur Amph Scrn Negative Normal NEG = <1000 [facility] Comment on above: Performed By: #### C D:[id number] ####[address] [address] Ur Yenifer Scrn Negative Normal NEG = <200 [facility] Comment on above: Performed By: #### C D:[id number] ####[address] [address] Ur Benzodia Scrn Positive Abnormal NEG = <200 [facility] Comment on above: Result Comment: This unconfirmed positive screening result is to be used for medical treatment purposes only. Unconfirmed screening results must not be used for non-medical purposes (e.g. employment testing, legal testing). Performed By: #### C D:[id number] ####[address] [address] Ur Cannab Scrn Positive Abnormal NEG = <50 [facility] Comment on above: Result Comment: This unconfirmed positive screening result is to be used for medical treatment purposes only. Unconfirmed screening results must not be used for non-medical purposes (e.g. employment testing, legal testing). Performed By: #### C D:[id number] ####[address] [address] Ur Cocaine Scrn Negative Normal NEG = <300 [facility] Comment on above: Performed By: #### C [id number] ####[address] [address] Ur Methadone Scn Negative Normal NEG = <300 [facility] Comment on above: Performed By: #### C D:[id number] ####[address] [address] Ur Opiate Scrn Negative Normal NEG = <300 [facility] Comment on above: Performed By: #### C [id number] ####[address] [address] Ur Oxy Screen Negative Normal NEG = <100 [facility] Comment on above: Performed By: #### C [id number] ####[address] [address] Ur Oxy Scrn Qnt 0 ng/mL Normal <=99 [facility] Comment on above: Performed By: #### C D:[id number] ####[address] [address] Ur PCP Scrn Negative Normal NEG = <25 [facility] Comment on above: Performed By: #### C D:[id number] ####[address] [address] UA pH 6.5 Normal 4.5 - 7.8 [facility] Comment on above: Performed By: #### C D:[id number] ####[address] [address] UA Spec Grav 1.020 Normal 1.003-1.035 [facility] Comment on above: Performed By: #### C D:[id number] ####[address] [address] Hep Func Panelon 08-28-2024 Albumin [Mass/Vol] 3.6 g/dL Normal 3.2-4.9 [facility] Comment on above: Performed By: #### L IVER ####[address] [address] Alk Phos 41 IU/L Normal 32-91 [facility] Comment on above: Performed By: #### L IVER ####[address] [address] ALT [Catalytic activity/Vol] 28 U/L Normal 17-63 [facility] Comment on above: Performed By: #### L IVER ####[address] [address] AST [Catalytic activity/Vol] 20 U/L Normal 15-41 [facility] Comment on above: Performed By: #### L IVER ####[address] [address] Bili Direct 0.1 mg/dL Normal 0.1-0.5 [facility] Comment on above: Performed By: #### L IVER ####[address] [address] Bili Indirect 0.6 mg/dL Normal 0.0-1.0 [facility] Comment on above: Performed By: #### L IVER ####[address] [address] Bili Total 0.7 mg/dL Normal 0.3-1.2 [facility] Comment on above: Performed By: #### L IVER ####[address] [address] Protein [Mass/Vol] 6.5 g/dL Normal 6.5-8.1 [facility] Comment on above: Performed By: #### L IVER ####[place] [address] .Fentanyl Scrn wo Conf,Uron 08-27-2024 Ur Fentanyl Scrn Negative Normal NEG <1.0 [facility] Comment on above: Performed By: #### C D:[id number] ####[place] [address] Ur Fentanyl Scrn Qnt 0.69 ng/mL Normal <=0.99 [facility] Comment on above: Performed By: #### C D:[id number] ####[place] [address] .UA Microscp Aon 08-27-2024 UA Mucus Present Normal Absent [facility] Comment on above: Performed By: #### . Urinalysis Microscopic Auto ####[place] [address] UA RBC Quant 0 /HPF Normal 0-5 [facility] Comment on above: Performed By: #### . Urinalysis Microscopic Auto ####[place] [address] UA Squepi Cells Quant <1 Normal 0-29 [facility] Comment on above: Performed By: #### . Urinalysis Microscopic Auto ####[place] [address] UA WBC Quant 0 /HPF Normal 0-5 [facility] Comment on above: Performed By: #### . Urinalysis Microscopic Auto ####[place] [address] .eGFRon 08-27-2024 GFR/1.73 sq M.predicted MDRD (S/P/Bld) [Vol rate/Area] mL/min/{1.73_m2} Normal >=60 [facility] Comment on above: Result Comment: [facility] Laboratories have implemented the eGFR calculation approach [...] = years Performed By: #### E GFR ####[address] [address] B12/Folate Lvlon 08-27-2024 Cobalamin (Vitamin B12) [Mass/Vol] 413 pg/mL Normal 180-914 [facility] Comment on above: Performed By: #### B 12FO ####[address] [address] Folate Lvl 17.9 ng/mL Normal >=5.9 [facility] Comment on above: Result Comment: A [facility] Technical Consultation has determined that deficient Folate concentrations are considered to be less than 4 ng/mL. Performed By: #### B 12FO ####[address] [address] BNPon 08-27-2024 Natriuretic peptide B (Bld) [Mass/Vol] 12 pg/mL Normal 0-100 [facility] Comment on above: Performed By: #### B TURN SUPERVISOR ####[address] [address] CBC w/ Diffon 08-27-2024 Erythrocyte distribution width (RBC) [Ratio] 13.1 % Normal 11.6-14.8 [facility] Comment on above: Performed By: #### C BC ####[address] [address] Hematocrit (Bld) [Volume fraction] 45.3 % Normal 41.0-53.0 [facility] Comment on above: Performed By: #### C BC ####[address] [address] Hemoglobin (Bld) [Mass/Vol] 15.5 g/dL Normal 13.5-17.5 [facility] Comment on above: Performed By: #### C BC ####[address] [address] MCH (RBC) [Entitic mass] 30.1 pg Normal 27.0-35.0 [facility] Comment on above: Performed By: #### C BC ####[address] [address] MCHC 34.3 % Normal 31.0-37.0 [facility] Comment on above: Performed By: #### C BC ####[address] [address] MCV (RBC) [Entitic vol] 87.9 fL Normal 80.0-100.0 [facility] Comment on above: Performed By: #### C BC ####[address] [address] Platelet 271 x10*3/mcL Normal 150-450 [facility] Comment on above: Performed By: #### C BC ####[address] [address] Platelet mean volume (Bld) [Entitic vol] 7.3 fL Normal 6.7-10.6 [facility] Comment on above: Performed By: #### C BC ####[address] [address] RBC 5.15 x10*6/mcL Normal 4.30-5.80 [facility] Comment on above: Performed By: #### C BC ####[address] [address] WBC 7.5 x10*3/mcL Normal 4.5-11.0 [facility] Comment on above: Performed By: #### C BC ####[address] [address] CMPon 08-27-2024 Albumin [Mass/Vol] 4.0 g/dL Normal 3.2-4.9 [facility] Comment on above: Performed By: #### C OMP ####[address] [address] Albumin/Globulin [Mass ratio] 1.5 {ratio} Normal 1.1-2.2 [facility] Comment on above: Performed By: #### C OMP ####[address] [address] Alk Phos 48 IU/L Normal 32-91 [facility] Comment on above: Performed By: #### C OMP ####[address] [address] ALT [Catalytic activity/Vol] 30 U/L Normal 17-63 [facility] Comment on above: Performed By: #### C OMP ####[address] [address] Anion gap [Moles/Vol] 7 mmol/L Normal 4-12 [facility] Comment on above: Performed By: #### C OMP ####[address] [address] AST [Catalytic activity/Vol] 22 U/L Normal 15-41 [facility] Comment on above: Performed By: #### C OMP ####[address] [address] Bili Total 0.6 mg/dL Normal 0.3-1.2 [facility] Comment on above: Performed By: #### C OMP ####[address] [address] Calcium [Mass/Vol] 8.6 mg/dL Normal 8.5-10.3 [facility] Comment on above: Performed By: #### C OMP ####[address] [address] Chloride [Moles/Vol] 103 mmol/L Normal 98-110 [facility] Comment on above: Performed By: #### C OMP ####[address] [address] CO2 [Moles/Vol] 23 mmol/L Normal 22-32 [facility] Comment on above: Performed By: #### C OMP ####[address] [address] Creatinine [Mass/Vol] 0.85 mg/dL Normal 0.61-1.24 [facility] Comment on above: Performed By: #### C OMP ####[address] [address] Glucose [Mass/Vol] 92 mg/dL Normal 70-99 [facility] Comment on above: Performed By: #### C OMP ####[address] [address] Potassium [Moles/Vol] 4.1 mmol/L Normal 3.4-4.8 [facility] Comment on above: Performed By: #### C OMP ####[address] [address] Protein [Mass/Vol] 6.6 g/dL Normal 6.5-8.1 [facility] Comment on above: Performed By: #### C OMP ####[address] [address] Sodium [Moles/Vol] 133 mmol/L Normal 133-142 [facility] Comment on above: Performed By: #### C OMP ####[address] [address] Urea nitrogen [Mass/Vol] 11 mg/dL Normal 8-26 [facility] Comment on above: Performed By: #### C OMP ####[address] [address] Urea nitrogen/Creatinine [Mass ratio] 12.9 mg/mg Normal 10.0-20.0 [facility] Comment on above: Performed By: #### C OMP ####[address] [address] Diff Autoon 08-27-2024 Baso Absolute 0.2 x10*3/mcL Normal 0.0-0.2 [facility] Comment on above: Performed By: #### . Automated Diff ####[address] [address] Basophils/100 WBC (Bld) 3.2 % High 0.0-1.2 [facility] Comment on above: Performed By: #### . Automated Diff ####[address] [address] Eos Absolute 0.4 x10*3/mcL Normal 0.0-0.4 [facility] Comment on above: Performed By: #### . Automated Diff ####[address] [address] Eosinophils/100 WBC (Bld) 5.1 % Normal 0.0-6.1 [facility] Comment on above: Performed By: #### . Automated Diff ####[address] [address] Lymph Absolute 2.9 x10*3/mcL Normal 1.0-4.8 [facility] Comment on above: Performed By: #### . Automated Diff ####[address] [address] Lymphocytes/100 WBC (Bld) 39.0 % Normal 27.2-40.8 [facility] Comment on above: Performed By: #### . Automated Diff ####[address] [address] [place] Absolute 0.6 x10*3/mcL Normal 0.3-1.1 [facility] Comment on above: Performed By: #### . Automated Diff ####[address] [address] Monocytes/100 WBC (Bld) 8.4 % Normal 4.7-13.9 [facility] Comment on above: Performed By: #### . Automated Diff ####[place] [address] Neutro Absolute 3.3 x10*3/mcL Normal 1.8-7.7 [facility] Comment on above: Performed By: #### . Automated Diff ####[place] [address] Neutro Auto 44.3 % Low 47.2-70.8 [facility] Comment on above: Performed By: #### . Automated Diff ####[place] [address] ED Clinical Summaryon 2023 ED Clinical Summary Normal [facility] ED Note-Physicianon 08-27-20 ED Note-Physician Normal [facility] Ethanolon 08-27-2024 Ethanol, Plasma <10 Normal <=9 [facility] Comment on above: Result Comment: To c onvert mg/dL to g/dL, divide result by 1,000. Legal limit of intoxication is 80 mg/dL (0.08 g/dL). Performed By: #### A LC ####[place] [address] Magnesiumon 08-27-2024 Magnesium [Mass/Vol] 2.1 mg/dL Normal 1.7-2.4 [facility] Comment on above: Performed By: #### M G ####[place] [address] Troponin-Ion 08-27-2024 Troponin I.cardiac [Mass/Vol] ng/mL Normal 0.00-0.03 [facility] Comment on above: Result Comment: An i ncreased Troponin-I value, in the absence of myocardial ischemia, may indicate other etiologies of cardiac damage.99th Percentile Cutoff for Negative/Positive:Negative <= 0.03Positive >= 0.04 Performed By: #### T ROP ####[place] [address] UA w Culture if Indon 2023 Color (U) Light-Yellow Normal Yellow [facility] Comment on above: Performed By: #### U CI ####[address] [place] [address] Ketones Ql (U) Negative Normal Negative [facility] Comment on above: Performed By: #### U CI ####[address] [place] [address] UA Blood Negative Normal Negative [facility] Comment on above: Performed By: #### U CI ####[address] [place] [address] UA Clarity Clear Normal Clear [facility] Comment on above: Performed By: #### U CI ####[address] [place] [address] UA Glucose Normal Normal Negative [facility] Comment on above: Performed By: #### U CI ####[address] [place] [address] UA Leukocyte Esterase Negative Normal Negative [facility] Comment on above: Performed By: #### U CI ####[address] [place] [address] UA Nitrite Negative Normal Negative [facility] Comment on above: Performed By: #### U CI ####[address] [place] [address] UA pH 5.0 Normal 4.5 - 7.8 [facility] Comment on above: Performed By: #### U CI ####[address] [place] [address] UA Protein Negative Normal Negative [facility] Comment on above: Performed By: #### U CI ####[address] [place] [address] UA Source Clean Catch Normal [facility] Comment on above: Performed By: #### U CI ####[address] [address] UA Spec Grav 1.015 Normal 1.003-1.035 [facility] Comment on above: Performed By: #### U CI ####[address] [address] UA Urobilinogen Normal Normal 0.2 - 1.0 [facility] Comment on above: Performed By: #### U CI ####[address] [address] Urobilinogen (U) [Mass/Vol] Negative Normal Negative [facility] Comment on above: Performed By: #### U CI ####[address] [address] UDS Compon 08-27-2024 Creatinine [Mass/Vol] 91.1 mg/dL Normal [facility] Comment on above: Performed By: #### C [id number] ####[address] [address] Ur Amph Scrn Negative Normal NEG = <1000 [facility] Comment on above: Performed By: #### C [id number] ####[address] [address] Ur Yenifer Scrn Negative Normal NEG = <200 [facility] Comment on above: Performed By: #### C [id number] ####[address] [address] Ur Benzodia Scrn Negative Normal NEG = <200 [facility] Comment on above: Performed By: #### C D:[id number] ####[address] [address] Ur Cannab Scrn Positive Abnormal NEG = <50 [facility] Comment on above: Result Comment: This unconfirmed positive screening result is to be used for medical treatment purposes only. Unconfirmed screening results must not be used for non-medical purposes (e.g. employment testing, legal testing). Performed By: #### C [id number] ####[address] [address] Ur Cocaine Scrn Negative Normal NEG = <300 [facility] Comment on above: Performed By: #### C [id number] ####[address] [address] Ur Methadone Scn Negative Normal NEG = <300 [facility] Comment on above: Performed By: #### C [id number] ####[address] [address] Ur Opiate Scrn Negative Normal NEG = <300 [facility] Comment on above: Performed By: #### C [id number] ####[address] [address] Ur Oxy Screen Negative Normal NEG = <100 [facility] Comment on above: Performed By: #### C [id number] ####[address] [address] Ur Oxy Scrn Qnt 8 ng/mL Normal <=99 [facility] Comment on above: Performed By: #### C [id number] ####[address] [address] Ur PCP Scrn Negative Normal NEG = <25 [facility] Comment on above: Performed By: #### C [id number] ####[address] [address] UA pH 5.0 Normal 4.5 - 7.8 [facility] Comment on above: Performed By: #### C [id number] ####[place] [address] UA Spec Grav 1.015 Normal 1.003-1.035 [facility] Comment on above: Performed By: #### C D:[id number] ####[address] [address] CBC with Diffon 08-15-2024 Abs. Basophil 0.12 k/uL Normal 0.00-0.20 [facility] Comment on above: Performed By: #### C DP, LIP, TROPI, DIME, CP #### [facility] [address] [place] [address] [facility]: Kael Tran MD Abs.Imm.Granulocyte 0.03 k/uL Normal 0.00-0.30 [facility] Comment on above: Performed By: #### C DP, LIP, TROPI, DIME, CP #### [place] [address] [facility]: Kael Tran MD Abs.Neutrophil (Seg) 4.48 k/uL Normal 1.50-8.10 [facility] Comment on above: Performed By: #### C DP, LIP, TROPI, DIME, CP #### [place] [address] [facility]: Kael Tran MD Basophils/100 WBC (Bld) 1 % Normal 0-2 [facility] Comment on above: Performed By: #### C DP, LIP, TROPI, DIME, CP #### [place] [address] [facility]: Kael Tran MD Eosinophils (Bld) [#/Vol] 0.66 10*3/uL High 0.00-0.44 [facility] Comment on above: Performed By: #### C DP, LIP, TROPI, DIME, CP #### [place] [address] [facility]: Kael Tran MD Eosinophils/100 WBC (Bld) 8 % High 1-4 [facility] Comment on above: Performed By: #### C DP, LIP, TROPI, DIME, CP #### [place] [address] [facility]: Kael Tran MD Erythrocyte distribution width (RBC) [Ratio] 12.3 % Normal 11.8-14.4 [facility] Comment on above: Performed By: #### C DP, LIP, TROPI, DIME, CP #### [address] [address] [facility]: Kael Tran MD Hematocrit (Bld) [Volume fraction] 51.9 % High 40.7-50.3 [facility] Comment on above: Performed By: #### C DP, LIP, TROPI, DIME, CP #### [address] [address] [facility]: Kael Tran MD Hemoglobin (Bld) [Mass/Vol] 18.2 g/dL High 13.0-17.0 [facility] Comment on above: Performed By: #### C DP, LIP, TROPI, DIME, CP #### [address] [address] [facility]: Kael Tran MD Immature granulocytes/100 WBC (Bld) 0 % Normal 0 [facility] Comment on above: Performed By: #### C DP, LIP, TROPI, DIME, CP #### [place] [address] [facility]: Kael Tran MD Lymphocytes (Bld) [#/Vol] 2.52 10*3/uL Normal 1.10-3.70 [facility] Comment on above: Performed By: #### C DP, LIP, TROPI, DIME, CP #### [address] [address] [facility]: Kael Tran MD Lymphocytes/100 WBC (Bld) 29 % Normal 24-43 [facility] Comment on above: Performed By: #### C DP, LIP, TROPI, DIME, CP #### [address] [address] [facility]: Kael Tran MD MCH (RBC) [Entitic mass] 30.1 pg Normal 25.2-33.5 [facility] Comment on above: Performed By: #### C DP, LIP, TROPI, DIME, CP #### [address] [address] [facility]: Kael Tran MD MCHC (RBC) [Mass/Vol] 35.1 g/dL High 28.4-34.8 [facility] Comment on above: Performed By: #### C DP, LIP, TROPI, DIME, CP #### [address] [address] [facility]: Kael Tran MD MCV (RBC) [Entitic vol] 85.9 fL Normal 82.6-102.9 [facility] Comment on above: Performed By: #### C DP, LIP, TROPI, DIME, CP #### [address] [address] [facility]: Kael Tran MD Monocytes (Bld) [#/Vol] 0.86 10*3/uL Normal 0.10-1.20 [facility] Comment on above: Performed By: #### C DP, LIP, TROPI, DIME, CP #### [address] [address] [facility]: Kael Tran MD Monocytes/100 WBC (Bld) 10 % Normal 3-12 [facility] Comment on above: Performed By: #### C DP, LIP, TROPI, DIME, CP #### [address] [address] [facility]: Kael Tran MD Neutrophil (Seg) 52 % Normal 36-65 [facility] Comment on above: Performed By: #### C DP, LIP, TROPI, DIME, CP #### [address] [address] [facility]: Kael Tran MD NRBC Automated 0.0 per 100 WBC Normal 0.0 [facility] Comment on above: Performed By: #### C DP, LIP, TROPI, DIME, CP #### [address] [address] [facility]: Kael Tran MD Platelet mean volume (Bld) [Entitic vol] 9.5 fL Normal 8.1-13.5 [facility] Comment on above: Performed By: #### C DP, LIP, TROPI, DIME, CP #### [address] [address] [facility]: Kael Tran MD Platelets (Bld) [#/Vol] 307 10*3/uL Normal 138-453 [facility] Comment on above: Performed By: #### C DP, LIP, TROPI, DIME, CP #### [address] [address] [facility]: Kael Tran MD RBC (Bld) [#/Vol] 6.04 10*6/uL High 4.21-5.77 [facility] Comment on above: Performed By: #### C DP, LIP, TROPI, DIME, CP #### [address] [address] [facility]: Kael Tran MD WBC (Bld) [#/Vol] 8.7 10*3/uL Normal 3.5-11.3 [facility] Comment on above: Performed By: #### C DP, LIP, TROPI, DIME, CP #### [address] [address] [facility]: Kael Tran MD Comp Metabolic Profon 2023 Albumin [Mass/Vol] 4.6 g/dL Normal 3.5-5.2 [facility] Comment on above: Performed By: #### C DP, LIP, TROPI, DIME, CP #### [address] [address] [facility]: Kael Tran MD Albumin/Glob Ratio 2.0 Normal 1.0-2.5 [facility] Comment on above: Performed By: #### C DP, LIP, TROPI, DIME, CP #### [address] [address] [facility]: Kael Tran MD Alkaline Phos 65 U/L Normal 40-129 [facility] Comment on above: Performed By: #### C DP, LIP, TROPI, DIME, CP #### [address] [address] [facility]: Kael Tran MD ALT [Catalytic activity/Vol] 36 U/L Normal 10-50 [facility] Comment on above: Performed By: #### C DP, LIP, TROPI, DIME, CP #### [address] [address] [facility]: Kael Tran MD Anion gap [Moles/Vol] 15 mmol/L Normal 9-16 [facility] Comment on above: Performed By: #### C DP, LIP, TROPI, DIME, CP #### [address] [address] [facility]: Kael Tran MD AST [Catalytic activity/Vol] 32 U/L Normal 10-50 [facility] Comment on above: Performed By: #### C DP, LIP, TROPI, DIME, CP #### [address] [address] [facility]: Kael Tran MD Bilirubin [Mass/Vol] 1.4 mg/dL High 0.00-1.20 [facility] Comment on above: Performed By: #### C DP, LIP, TROPI, DIME, CP #### [address] [address] [facility]: Kael Tran MD Calcium [Mass/Vol] 10.0 mg/dL Normal 8.6-10.4 [facility] Comment on above: Performed By: #### C DP, LIP, TROPI, DIME, CP #### [address] [address] [facility]: Kael Tran MD Chloride [Moles/Vol] 102 mmol/L Normal 98-107 [facility] Comment on above: Performed By: #### C DP, LIP, TROPI, DIME, CP #### [address] [address] [facility]: Kael Tran MD CO2 [Moles/Vol] 20 mmol/L Normal 20-31 [facility] Comment on above: Performed By: #### C DP, LIP, TROPI, DIME, CP #### [address] [address] [facility]: Kael Tran MD Creatinine [Mass/Vol] 1.1 mg/dL Normal 0.70-1.20 [facility] Comment on above: Performed By: #### C DP, LIP, TROPI, DIME, CP #### [address] [address] [facility]: Kael Tran MD GFR/1.73 sq M.predicted among non-blacks MDRD (S/P/Bld) [Vol rate/Area] mL/min/{1.73_m2} Normal >60 [facility] Comment on above: Result Comment: These [...] C DP, LIP, TROPI, DIME, CP #### [address] [address] [facility]: Kael Tran MD Glucose [Mass/Vol] 97 mg/dL Normal 74-99 [facility] Comment on above: Performed By: #### C DP, LIP, TROPI, DIME, CP #### [address] [address] [facility]: Kael Tran MD Potassium [Moles/Vol] 4.0 mmol/L Normal 3.7-5.3 [facility] Comment on above: Performed By: #### C DP, LIP, TROPI, DIME, CP #### [address] [address] [facility]: Kael Tran MD Protein [Mass/Vol] 7.6 g/dL Normal 6.6-8.7 [facility] Comment on above: Performed By: #### C DP, LIP, TROPI, DIME, CP #### [address] [address] [facility]: Kael Tran MD Sodium [Moles/Vol] 137 mmol/L Normal 136-145 [facility] Comment on above: Performed By: #### C DP, LIP, TROPI, DIME, CP #### [address] [address] [facility]: Kael Tran MD Urea nitrogen [Mass/Vol] 12 mg/dL Normal 6-20 [facility] Comment on above: Performed By: #### C DP, LIP, TROPI, DIME, CP #### [facility] [employer] [address] [place] [address] [facility]: Kael Tran MD D-Dimer Teston 08-15-2024 D-Dimer Test <0.27 Normal 0.00-0.57 [facility] Comment on above: Result Comment: When [...] C DP, LIP, TROPI, DIME, CP #### [facility] [address] [place] [address] [facility]: Kael Tran MD Lipaseon 08-15-2024 Lipase [Catalytic activity/Vol] 31 U/L Normal 13-60 [facility] Comment on above: Performed By: #### C DP, LIP, TROPI, DIME, CP #### [facility] [place] [address] [facility]: Kael Tran MD Troponinon 08-15-2024 Troponin, High Sens 9 ng/L Normal 0-22 [facility] Comment on above: Result Comment: High Sensitivity Troponin values cannot be compared with other Troponin methodologies. Performed By: #### T ROPI #### [facility] [address] [place] [address] [facility]: Kael Tran MD Troponin, High Sens 9 ng/L Normal 0-22 [facility] Comment on above: Result Comment: High Sensitivity Troponin values cannot be compared with other Troponin methodologies. Performed By: #### C DP, PAM, SCOTT JACOBSEN, CP #### [facility] [employer] [address] [place] [address] [facility]: Kael rTan MD XR CHEST (2 VW)on 08-15-2024 XR [...] Cristino Velasquez MD 08/15/24 Final result Normal [facility] CBC with Diffon 07-20-2024 Abs. Basophil 0.11 k/uL Normal 0.00-0.20 [facility] Comment on above: Performed By: #### E DTOX, MG, CP, CDP #### [facility] [address] [place] [address] [facility]: Kael Tran MD Abs.Imm.Granulocyte <0.03 Normal 0.00-0.30 [facility] Comment on above: Performed By: #### E DTOX, MG, CP, CDP #### [facility] [address] [place] [address] [facility]: Kael Tran MD Abs.Neutrophil (Seg) 4.15 k/uL Normal 1.50-8.10 [facility] Comment on above: Performed By: #### E DTOX, MG, CP, CDP #### [facility] [address] [place] [address] [facility]: Kael Tran MD Basophils/100 WBC (Bld) 1 % Normal 0-2 [facility] Comment on above: Performed By: #### E DTOX, MG, CP, CDP #### [address] [address] [facility]: Kael Tran MD Eosinophils (Bld) [#/Vol] 0.34 10*3/uL Normal 0.00-0.44 [facility] Comment on above: Performed By: #### E DTOX, MG, CP, CDP #### [address] [address] [facility]: Kael Tran MD Eosinophils/100 WBC (Bld) 4 % Normal 1-4 [facility] Comment on above: Performed By: #### E DTOX, MG, CP, CDP #### [address] [address] [facility]: Kael Tran MD Erythrocyte distribution width (RBC) [Ratio] 12.6 % Normal 11.8-14.4 [facility] Comment on above: Performed By: #### E DTOX, MG, CP, CDP #### [facility] [address] [place] [address] [facility]: Kael Tran MD Hematocrit (Bld) [Volume fraction] 45.0 % Normal 40.7-50.3 [facility] Comment on above: Performed By: #### E DTOX, MG, CP, CDP #### [facility] [address] [place] [address] [facility]: Kael Tran MD Hemoglobin (Bld) [Mass/Vol] 15.8 g/dL Normal 13.0-17.0 [facility] Comment on above: Performed By: #### E DTOX, MG, CP, CDP #### [facility] [address] [place] [id number] [facility]: Kael Tran MD Immature granulocytes/100 WBC (Bld) 0 % Normal 0 [facility] Comment on above: Performed By: #### E DTOX, MG, CP, CDP #### [address] [address] [facility]: Kael Tran MD Lymphocytes (Bld) [#/Vol] 3.25 10*3/uL Normal 1.10-3.70 [facility] Comment on above: Performed By: #### E DTOX, MG, CP, CDP #### [address] [address] [facility]: Kael Tran MD Lymphocytes/100 WBC (Bld) 38 % Normal 24-43 [facility] Comment on above: Performed By: #### E DTOX, MG, CP, CDP #### [place] [address] [facility]: Kael Tran MD MCH (RBC) [Entitic mass] 30.7 pg Normal 25.2-33.5 [facility] Comment on above: Performed By: #### E DTOX, MG, CP, CDP #### [facility] [address] [place] [address] [facility]: Kael Tran MD MCHC (RBC) [Mass/Vol] 35.1 g/dL High 28.4-34.8 [facility] Comment on above: Performed By: #### E DTOX, MG, CP, CDP #### [facility] [address] [place] [address] [facility]: Kael Tran MD MCV (RBC) [Entitic vol] 87.4 fL Normal 82.6-102.9 [facility] Comment on above: Performed By: #### E DTOX, MG, CP, CDP #### [facility] [address] [place] [address] [facility]: Kael Tran MD Monocytes (Bld) [#/Vol] 0.77 10*3/uL Normal 0.10-1.20 [facility] Comment on above: Performed By: #### E DTOX, MG, CP, CDP #### [address] [address] [facility]: Kael Tran MD Monocytes/100 WBC (Bld) 9 % Normal 3-12 [facility] Comment on above: Performed By: #### E DTOX, MG, CP, CDP #### [address] [address] [facility]: Kael Tran MD Neutrophil (Seg) 48 % Normal 36-65 [facility] Comment on above: Performed By: #### E DTOX, MG, CP, CDP #### [address] [address] [facility]: Kael Tran MD NRBC Automated 0.0 per 100 WBC Normal 0.0 [facility] Comment on above: Performed By: #### E DTOX, MG, CP, CDP #### [address] [address] [facility]: Kael Tran MD Platelet mean volume (Bld) [Entitic vol] 9.5 fL Normal 8.1-13.5 [facility] Comment on above: Performed By: #### E DTOX, MG, CP, CDP #### [address] [address] [facility]: Kael Tran MD Platelets (Bld) [#/Vol] 216 10*3/uL Normal 138-453 [facility] Comment on above: Performed By: #### E DTOX, MG, CP, CDP #### [address] [address] [facility]: Kael Tran MD RBC (Bld) [#/Vol] 5.15 10*6/uL Normal 4.21-5.77 [facility] Comment on above: Performed By: #### E DTOX, MG, CP, CDP #### [facility] [address] [place] [address] [facility]: Kael Tran MD WBC (Bld) [#/Vol] 8.6 10*3/uL Normal 3.5-11.3 [facility] Comment on above: Performed By: #### E DTOX, MG, CP, CDP #### [facility] [address] [place] [address] [facility]: Kael Tran MD Comp Metabolic Profon 2023 Albumin [Mass/Vol] 4.2 g/dL Normal 3.5-5.2 [facility] Comment on above: Performed By: #### E DTOX, MG, CP, CDP #### [facility] [address] [place] [address] [facility]: aKel Tran MD Albumin/Glob Ratio 2.0 Normal 1.0-2.5 [facility] Comment on above: Performed By: #### E DTOX, MG, CP, CDP #### [facility] [address] [place] [address] [facility]: Kael Tran MD Alkaline Phos 56 U/L Normal 40-129 [facility] Comment on above: Performed By: #### E DTOX, MG, CP, CDP #### [facility] [address] [place] [address] [facility]: Kael Tran MD ALT [Catalytic activity/Vol] 30 U/L Normal 10-50 [facility] Comment on above: Performed By: #### E DTOX, MG, CP, CDP #### [facility] [address] [place] [address] [facility]: Kael Tran MD Anion gap [Moles/Vol] 14 mmol/L Normal 9-16 [facility] Comment on above: Performed By: #### E DTOX, MG, CP, CDP #### [facility] [address] [place] [address] [facility]: Kael Tran MD AST [Catalytic activity/Vol] 33 U/L Normal 10-50 [facility] Comment on above: Result Comment: SPEC IMEN SLIGHTLY HEMOLYZED, RESULTS MAY BE ADVERSELY AFFECTED. Performed By: #### E DTOX, MG, CP, CDP #### [facility] [address] [place] [address] [facility]: Kael Tran MD Bilirubin [Mass/Vol] 0.4 mg/dL Normal 0.00-1.20 [facility] Comment on above: Performed By: #### E DTOX, MG, CP, CDP #### [facility] [address] [place] [address] [facility]: Kael Tran MD Calcium [Mass/Vol] 8.7 mg/dL Normal 8.6-10.4 [facility] Comment on above: Performed By: #### E DTOX, MG, CP, CDP #### [facility] [address] [place] [address] [facility]: Kael Tran MD Chloride [Moles/Vol] 105 mmol/L Normal 98-107 [facility] Comment on above: Performed By: #### E DTOX, MG, CP, CDP #### [facility] [address] [place] [address] [facility]: Kael Tran MD CO2 [Moles/Vol] 21 mmol/L Normal 20-31 [facility] Comment on above: Performed By: #### E DTOX, MG, CP, CDP #### [facility] [address] [place] [address] [facility]: Kael Tran MD Creatinine [Mass/Vol] 0.9 mg/dL Normal 0.70-1.20 [facility] Comment on above: Performed By: #### E DTOX, MG, CP, CDP #### [address] [address] [facility]: Kael Tran MD GFR/1.73 sq M.predicted among non-blacks MDRD (S/P/Bld) [Vol rate/Area] mL/min/{1.73_m2} Normal >60 [facility] Comment on above: Result Comment: These [...] #### E DTOX, MG, CP, CDP #### [facility] [employer] [address] [place] [address]22 [facility]: Kael Tran MD Glucose [Mass/Vol] 89 mg/dL Normal 74-99 [facility] Comment on above: Performed By: #### E DTOX, MG, CP, CDP #### [facility] [employer] [address] [place] [address] 49600 [facility]: Kael Tran MD Potassium [Moles/Vol] 3.7 mmol/L Normal 3.7-5.3 [facility] Comment on above: Result Comment: SPEC IMEN SLIGHTLY HEMOLYZED, RESULTS MAY BE ADVERSELY AFFECTED. Performed By: #### E DTOX, MG, CP, CDP #### [facility] [address] [place] [address] 8[address] [facility]: Kael Tran MD Protein [Mass/Vol] 6.4 g/dL Low 6.6-8.7 [facility] Comment on above: Performed By: #### E DTOX, MG, CP, CDP #### [facility] [address] [place] [address] 87319 [facility]: Kael Tran MD Sodium [Moles/Vol] 140 mmol/L Normal 136-145 [facility] Comment on above: Performed By: #### E DTOX, MG, CP, CDP #### [facility] [address] [place] [address] 62560 [facility]: Kael Tran MD Urea nitrogen [Mass/Vol] 12 mg/dL Normal 6-20 [facility] Comment on above: Performed By: #### E DTOX, MG, CP, CDP #### [facility] [address] [place] [address] 08570 [facility]: Kael Tran MD Drug Scr, Abuse, Uron 2023 Benzodiazepine(s) Positive Abnormal NEG [facility] Comment on above: Result Comment: Cuto ff: 200 ng/ml Performed By: #### E DTOX, MG, CP, CDP #### [facility] [employer] [address] [place] [address] 85538 [facility]: Kael Tran MD Cannabinoid(s),Ur Positive Abnormal NEG [facility] Comment on above: Result Comment: Cuto ff: 50 ng/ml Performed By: #### E DTOX, MG, CP, CDP #### [facility] [address] [place] [address] 60522 [facility]: Kael Tran MD Interpretive Info Assay provides rapid clinical screening only. Presumptive positive results for Normal [facility] Comment on above: Result Comment: lega l purposes should be confirmed by another method. To request confirmation, please call the lab within 7 days of sample submission. Performed By: #### E DTOX, MG, CP, CDP #### [facility] [address] [place] [address] 91449 [facility]: Kael Tran MD Amphetamine(s),Ur Negative Normal NEG [facility] Comment on above: Result Comment: Cuto ff: 1000 ng/mL Performed By: #### E DTOX, MG, CP, CDP #### [facility] [address] [place] [address] 40944 [facility]: Kael Tran MD Barbiturate(s),Ur Negative Normal NEG [facility] Comment on above: Result Comment: Cuto ff: 200 ng/ml Performed By: #### E DTOX, MG, CP, CDP #### [facility] [address] [place] [address] 81919 [facility]: Kael Tran MD Cocaine Metabolite Negative Normal NEG [facility] Comment on above: Result Comment: Cuto ff: 300 ng/ml Performed By: #### E DTOX, MG, CP, CDP #### [facility] [address] [place] [address] 68771 [facility]: Kael Tran MD Fentanyl, Urine Negative Normal NEG [facility] Comment on above: Result Comment: Cuto ff: 5 ng/ml Performed By: #### E DTOX, MG, CP, CDP #### [facility] [address] [place] [address] 28201 [facility]: Kael Tran MD Methadone Ql (U) Negative Normal NEG [facility] Comment on above: Result Comment: Cuto ff: 300 ng/ml Performed By: #### E DTOX, MG, CP, CDP #### [facility] [address] [place] [address] 80360 [facility]: Kael Tran MD Opiate(s), Ur Negative Normal NEG [facility] Comment on above: Result Comment: Cuto ff: 300 ng/ml Performed By: #### E DTOX, MG, CP, CDP #### [facility] [address] [place] [address] 15788 [facility]: Kael Tran MD Oxycodone, Urine Negative Normal NEG [facility] Comment on above: Result Comment: Cuto ff: 100 ng/ml Performed By: #### E DTOX, MG, CP, CDP #### [facility] [address] [place] [address] 23898 [facility]: Kael Tran MD Phencyclidine, Ur Negative Normal NEG [facility] Comment on above: Result Comment: Cuto ff: 25 ng/ml Performed By: #### E DTOX, MG, CP, CDP #### [facility] [address] [place] [address] 39796 [facility]: Kael Tran MD Magnesiumon 6 Magnesium [Mass/Vol] 2.2 mg/dL Normal 1.6-2.6 [facility] Comment on above: Performed By: #### E DTOX, MG, CP, CDP #### [facility] [address] [place] [address] Careg[facility] Home: Kael Tran MD Tox Scr, Bld, EDon 4 Acetaminophen [Mass/Vol] ug/mL Low 10-30 [facility] Comment on above: Performed By: #### E DTOX, MG, CP, CDP #### [address] [address] [facility]: Kael Tran MD Ethanol [Mass/Vol] 98 mg/dL High <10 [facility] Comment on above: Performed By: #### E DTOX, MG, CP, CDP #### [facility] [address] [place] [address] 33018 [facility]: Kael Tran MD Ethanol percent 0.098 % High <0.010 [facility] Comment on above: Performed By: #### E DTOX, MG, CP, CDP #### [facility] [address] [place] [address] 93387 [facility]: Kael Tran MD Salicylate <0.5 Normal 0.0-10.0 [facility] Comment on above: Performed By: #### E DTOX, MG, CP, CDP #### [address] [address] [facility]: Kael Tran MD UA w/Reflex Cultureon 2023 Bilirubin, SemiQt,Ur Negative Normal NEG [facility] Comment on above: Performed By: #### E DTOX, MG, CP, CDP #### [address] [address] [facility] Home: Kael Tran MD Blood, Urine Negative Normal NEG [facility] Comment on above: Performed By: #### E DTOX, MG, CP, CDP #### [address] [address] [facility] Home: Kael Tran MD Clarity (U) Clear Normal CLEAR [facility] Comment on above: Performed By: #### E DTOX, MG, CP, CDP #### [address] [address] [facility]: Kael Tran MD Color (U) Yellow Normal YEL [facility] Comment on above: Performed By: #### E DTOX, MG, CP, CDP #### [address] [address] [facility]: Kael Tran MD Comment Microscopic exam not performed based on chemical results unless requested in Normal [facility] Comment on above: Result Comment: orig inal order. Performed By: #### E DTOX, MG, CP, CDP #### [address] [address] [facility]: Kael Tran MD Glucose Ql (U) Negative Normal NEG [facility] Comment on above: Performed By: #### E DTOX, MG, CP, CDP #### [address] [address] [facility]: Kael Tran MD Ketones Ql (U) Negative Normal NEG [facility] Comment on above: Performed By: #### E DTOX, MG, CP, CDP #### [address] [address] [facility]: Kael Tran MD Leukocyte esterase Test strip Ql (U) Negative Normal NEG [facility] Comment on above: Performed By: #### E DTOX, MG, CP, CDP #### [address] [address] [facility]: Kael Tran MD Nitrite,Ur Negative Normal NEG [facility] Comment on above: Performed By: #### E DTOX, MG, CP, CDP #### [address] [address] [facility] Home: Kael Tran MD PH,Ur 5.5 Normal 5.0-8.0 [facility] Comment on above: Performed By: #### E DTOX, MG, CP, CDP #### [facility] [address] [place] [address] 79347 [facility]: Kael Tran MD Protein Ql (U) Negative Normal NEG [facility] Comment on above: Performed By: #### E DTOX, MG, CP, CDP #### [facility] [address] [place] [address] 7[address]59 [facility]: Kael Tran MD Spec. Burdett,Ur 1.014 Normal 1.005-1.030 [facility] Comment on above: Performed By: #### E DTOX, MG, CP, CDP #### [facility] [address] [place] [address] 0[address]37 Care[facility]: Kael Tran MD Urobilinogen,Ur Normal Normal 0.0-1.0 [facility] Comment on above: Performed By: #### E DTOX, MG, CP, CDP #### [place] [address] Careg[facility] Services Home: Kael Tran MD CBC with Diffon 07-04-2024 Abs. Basophil 0.11 k/uL Normal 0.00-0.20 [facility] Comment on above: Performed By: #### E DTOX, MG, CP, CDP #### [place] [address] Careg[facility] Home: Kael Tran MD Abs.Imm.Granulocyte <0.03 Normal 0.00-0.30 [facility] Comment on above: Performed By: #### E DTOX, MG, CP, CDP #### [place] [address] [facility] Home: Kael Tran MD Abs.Neutrophil (Seg) 4.73 k/uL Normal 1.50-8.10 [facility] Comment on above: Performed By: #### E DTOX, MG, CP, CDP #### [place] [address] [facility]: Kael Tran MD Basophils/100 WBC (Bld) 1 % Normal 0-2 [facility] Comment on above: Performed By: #### E DTOX, MG, CP, CDP #### [place] [address] Care[facility] Home: Kael Tran MD Eosinophils (Bld) [#/Vol] 0.21 10*3/uL Normal 0.00-0.44 [facility] Comment on above: Performed By: #### E DTOX, MG, CP, CDP #### [place] [address] [facility]: Kael Tran MD Eosinophils/100 WBC (Bld) 3 % Normal 1-4 [facility] Comment on above: Performed By: #### E DTOX, MG, CP, CDP #### [facility] [address] [place] [address] 26842 [facility]: Kael Tran MD Erythrocyte distribution width (RBC) [Ratio] 12.5 % Normal 11.8-14.4 [facility] Comment on above: Performed By: #### E DTOX, MG, CP, CDP #### [facility] [address] [place] [address] 75240 [facility]: Kael Tran MD Hematocrit (Bld) [Volume fraction] 47.9 % Normal 40.7-50.3 [facility] Comment on above: Performed By: #### E DTOX, MG, CP, CDP #### [place] [address] [facility]: Kael Tran MD Hemoglobin (Bld) [Mass/Vol] 16.1 g/dL Normal 13.0-17.0 [facility] Comment on above: Performed By: #### E DTOX, MG, CP, CDP #### [facility] [address] [place] [address] 59568 [facility]: Kael Tran MD Immature granulocytes/100 WBC (Bld) 0 % Normal 0 [facility] Comment on above: Performed By: #### E DTOX, MG, CP, CDP #### [facility] [address] [place] [address]140 [facility]: Kael Tran MD Lymphocytes (Bld) [#/Vol] 2.17 10*3/uL Normal 1.10-3.70 [facility] Comment on above: Performed By: #### E DTOX, MG, CP, CDP #### [facility] [address] [place] [address] 10933 [facility]: Kael Tran MD Lymphocytes/100 WBC (Bld) 27 % Normal 24-43 [facility] Comment on above: Performed By: #### E DTOX, MG, CP, CDP #### [address] [address] [facility]: Kael Tran MD MCH (RBC) [Entitic mass] 30.4 pg Normal 25.2-33.5 [facility] Comment on above: Performed By: #### E DTOX, MG, CP, CDP #### [address] [address] [facility]: Kael Tran MD MCHC (RBC) [Mass/Vol] 33.6 g/dL Normal 28.4-34.8 [facility] Comment on above: Performed By: #### E DTOX, MG, CP, CDP #### [place] [address] Careg[facility] Services Home: Kael Tran MD MCV (RBC) [Entitic vol] 90.4 fL Normal 82.6-102.9 [facility] Comment on above: Performed By: #### E DTOX, MG, CP, CDP #### [address] [address] [facility]: Kael Tran MD Monocytes (Bld) [#/Vol] 0.73 10*3/uL Normal 0.10-1.20 [facility] Comment on above: Performed By: #### E DTOX, MG, CP, CDP #### [address] [address] [facility]: Kael Tran MD Monocytes/100 WBC (Bld) 9 % Normal 3-12 [facility] Comment on above: Performed By: #### E DTOX, MG, CP, CDP #### [address] [address] [facility]: Kael Tran MD Neutrophil (Seg) 60 % Normal 36-65 [facility] Comment on above: Performed By: #### E DTOX, MG, CP, CDP #### [address] [address] [facility] Home: Kael Tran MD NRBC Automated 0.0 per 100 WBC Normal 0.0 [facility] Comment on above: Performed By: #### E DTOX, MG, CP, CDP #### [address] [address] [facility]: Kael Tran MD Platelet mean volume (Bld) [Entitic vol] 9.4 fL Normal 8.1-13.5 [facility] Comment on above: Performed By: #### E DTOX, MG, CP, CDP #### [address] [address] [facility]: Kael Tran MD Platelets (Bld) [#/Vol] 267 10*3/uL Normal 138-453 [facility] Comment on above: Performed By: #### E DTOX, MG, CP, CDP #### [address] [address] [facility]: Kael Tran MD RBC (Bld) [#/Vol] 5.30 10*6/uL Normal 4.21-5.77 [facility] Comment on above: Performed By: #### E DTOX, MG, CP, CDP #### [address] [address] [facility] Home: Kael Tran MD WBC (Bld) [#/Vol] 8.0 10*3/uL Normal 3.5-11.3 [facility] Comment on above: Performed By: #### E DTOX, MG, CP, CDP #### [address] [address] [facility]: Kael Tran MD Comp Metabolic Profon 2023 Albumin [Mass/Vol] 4.3 g/dL Normal 3.5-5.2 [facility] Comment on above: Performed By: #### E DTOX, MG, CP, CDP #### [facility] [address] [place] [address]167 [facility]: Kael Tran MD Albumin/Glob Ratio 2.0 Normal 1.0-2.5 [facility] Comment on above: Performed By: #### E DTOX, MG, CP, CDP #### [address] [address] [facility]: Kael Tran MD Alkaline Phos 57 U/L Normal 40-129 [facility] Comment on above: Performed By: #### E DTOX, MG, CP, CDP #### [facility] [address] [place] [address] 97828 [facility]: Kael Tran MD ALT [Catalytic activity/Vol] 35 U/L Normal 10-50 [facility] Comment on above: Performed By: #### E DTOX, MG, CP, CDP #### [facility] [address] [place] [address]27 [facility]: Kael Tran MD Anion gap [Moles/Vol] 11 mmol/L Normal 9-16 [facility] Comment on above: Performed By: #### E DTOX, MG, CP, CDP #### [facility] [address] [place] [address] [facility]: Kael Tran MD AST [Catalytic activity/Vol] 27 U/L Normal 10-50 [facility] Comment on above: Performed By: #### E DTOX, MG, CP, CDP #### [facility] [address] [place] [address]22 [facility]: Kael Tran MD Bilirubin [Mass/Vol] 1.2 mg/dL Normal 0.00-1.20 [facility] Comment on above: Performed By: #### E DTOX, MG, CP, CDP #### [facility] [address] [place] [address] [facility]: Kael Tran MD Calcium [Mass/Vol] 8.6 mg/dL Normal 8.6-10.4 [facility] Comment on above: Performed By: #### E DTOX, MG, CP, CDP #### [facility] [address] [place] [address] [facility]: Kael Tran MD Chloride [Moles/Vol] 104 mmol/L Normal 98-107 [facility] Comment on above: Performed By: #### E DTOX, MG, CP, CDP #### [facility] [address] [place] [address] [facility]: Kael Tran MD CO2 [Moles/Vol] 21 mmol/L Normal 20-31 [facility] Comment on above: Performed By: #### E DTOX, MG, CP, CDP #### [facility] [address] [place] [address] [facility]: Kael Tran MD Creatinine [Mass/Vol] 0.9 mg/dL Normal 0.70-1.20 [facility] Comment on above: Performed By: #### E DTOX, MG, CP, CDP #### [facility] [address] [place] [address] [facility]: Kael Tran MD GFR/1.73 sq M.predicted among non-blacks MDRD (S/P/Bld) [Vol rate/Area] mL/min/{1.73_m2} Normal >60 [facility] Comment on above: Result Comment: These [...] #### E DTOX, MG, CP, CDP #### [facility] [address] [place] [address] Care[facility]: Kael Tran MD Glucose [Mass/Vol] 93 mg/dL Normal 74-99 [facility] Comment on above: Performed By: #### E DTOX, MG, CP, CDP #### [facility] [address] [place] [address] [facility]: Kael Tran MD Potassium [Moles/Vol] 4.1 mmol/L Normal 3.7-5.3 [facility] Comment on above: Performed By: #### E DTOX, MG, CP, CDP #### [facility] [address] [place] [address] [facility]: Kael Tran MD Protein [Mass/Vol] 6.9 g/dL Normal 6.6-8.7 [facility] Comment on above: Performed By: #### E DTOX, MG, CP, CDP #### [facility] [address] [place] [address] [facility]: Kael Tran MD Sodium [Moles/Vol] 136 mmol/L Normal 136-145 [facility] Comment on above: Performed By: #### E DTOX, MG, CP, CDP #### [facility] [address] [place] [address] [facility]: Kael Tran MD Urea nitrogen [Mass/Vol] 14 mg/dL Normal 6-20 [facility] Comment on above: Performed By: #### E DTOX, MG, CP, CDP #### [facility] [address] [place] [address] [facility]: Kael Tran MD Drug Scr, Abuse, Uron 2023 Cannabinoid(s),Ur Positive Abnormal NEG [facility] Comment on above: Result Comment: Cuto ff: 50 ng/ml Performed By: #### E DTOX, MG, CP, CDP #### [facility] [address] [place] [address] [facility]: Kael Tran MD Interpretive Info Assay provides rapid clinical screening only. Presumptive positive results for Normal [facility] Comment on above: Result Comment: lega l purposes should be confirmed by another method. To request confirmation, please call the lab within 7 days of sample submission. Performed By: #### E DTOX, MG, CP, CDP #### [facility] [address] [place] [address] [facility]: Kael Tran MD Amphetamine(s),Ur Negative Normal NEG [facility] Comment on above: Result Comment: Cuto ff: 1000 ng/mL Performed By: #### E DTOX, MG, CP, CDP #### [facility] [address] [place] [address] [facility]: Kael Tran MD Barbiturate(s),Ur Negative Normal NEG [facility] Comment on above: Result Comment: Cuto ff: 200 ng/ml Performed By: #### E DTOX, MG, CP, CDP #### [facility] [address] [place] [address] [facility]: Kael Tran MD Benzodiazepine(s) Negative Normal NEG [facility] Comment on above: Result Comment: Cuto ff: 200 ng/ml Performed By: #### E DTOX, MG, CP, CDP #### [facility] [address] [place] [address] [facility]: Kael Tran MD Cocaine Metabolite Negative Normal NEG [facility] Comment on above: Result Comment: Cuto ff: 300 ng/ml Performed By: #### E DTOX, MG, CP, CDP #### [facility] [employer] [address] [place] [address] [facility]: Kael Tran MD Fentanyl, Urine Negative Normal NEG [facility] Comment on above: Result Comment: Cuto ff: 5 ng/ml Performed By: #### E DTOX, MG, CP, CDP #### [address] [address] [facility]: Kael Tran MD Methadone Ql (U) Negative Normal NEG [facility] Comment on above: Result Comment: Cuto ff: 300 ng/ml Performed By: #### E DTOX, MG, CP, CDP #### [address] [address] [facility]: Kael Tran MD Opiate(s), Ur Negative Normal NEG [facility] Comment on above: Result Comment: Cuto ff: 300 ng/ml Performed By: #### E DTOX, MG, CP, CDP #### [address] [address] [facility]: Kael Tran MD Oxycodone, Urine Negative Normal NEG [facility] Comment on above: Result Comment: Cuto ff: 100 ng/ml Performed By: #### E DTOX, MG, CP, CDP #### [address] [address] Careg[facility] Home: aKel Tran MD Phencyclidine, Ur Negative Normal NEG [facility] Comment on above: Result Comment: Cuto ff: 25 ng/ml Performed By: #### E DTOX, MG, CP, CDP #### [address] [address] [facility]: Kael Tran MD Tox Scr, Bld, EDon 4 Acetaminophen [Mass/Vol] ug/mL Low 10-30 [facility] Comment on above: Performed By: #### E DTOX, MG, CP, CDP #### [facility] [address] [place] [address] [facility]: Kael Tran MD Ethanol [Mass/Vol] mg/dL Normal <10 [facility] Comment on above: Performed By: #### E DTOX, MG, CP, CDP #### [facility] [address] [place] [address] [facility]: Kael Tran MD Ethanol percent <0.010 Normal <0.010 [facility] Comment on above: Performed By: #### E DTOX, MG, CP, CDP #### [facility] [address] [place] [address] [facility]: Kael Tran MD Salicylate <0.5 Normal 0.0-10.0 [facility] Comment on above: Performed By: #### E DTOX, MG, CP, CDP #### [facility] [address] [place] [address] [facility] Home: Kael Tran MD Abstracton 06-29-2024 Abstract [id number] Frantz Villarreal 1985 [facility] 06/29/2024 NENITA HIRSCH [facility] Medical C Family History Problem Relation [...] Grandmother Paternal Grandfather Paternal Grandmother Other Normal [facility] 30on 06-28-2024 30 Problem: Substance A buse [...] stop initially Outcome: Adequate for Discharge Normal [facility] 30 The patient is Moder ately [...] stop initially Outcome: Adequate for Discharge Normal [facility] Abstracton 06-28-2024 Abstract [id number] Frantz Villarreal ie C 1985 [facility] 06/28/2024 NENITA HIRSCH [facility] Medical C Family History Problem Relation [...] Grandmother Paternal Grandfather Paternal Grandmother Other Normal [facility] DSon 06-28-2024 DS Discharge Date: 2023 Time Spent with Patient: 31 minutes spent with patient, discussing discharge instructions, ordering medications, reviewing lab work, communicating with other healthcare professionals, documenting clinical information and the patient's follow-up plan. Chief Complaint: Alcohol abuse and withdrawal Consults: GIM History of Present Illness: Daron Villarreal is a 38 YOM that presents to [facility] inpatient recovery services for alcohol dependence with active withdrawal. Patient reports drinking 8 12 oz beers daily with last drink occurring this morning. Patient states he followed up with the [facility] when he was discharged from detox 6 months ago and was able to maintain sobriety for a few months before relapsing. Patient has a history of MDD and PTSD and is currently prescribe fluoxetine 40 mg daily. Patient also has a recent psychiatric admission in which he was admitted for suicide attempt. Patient was discharged from [facility] 10 days ago. 1. Alcohol: Beer [...] Negative mg/dL Bilirubin, Urine Negative Negative Specific [place], Urine 1.004 (L) 1.015 - 1.020 Ketones, [...] Absolute 0.01 0.0 (more content not included)... [facility] NURSNOTEon 06-28-2024 NURSNOTE Patient discharged h ome. AVS reviewed, belongings returned. Pt ambulated to [employer] to meet his taxi. [facility] NURSNOTE Patient slept 8 hour s through the night. Scheduled and PRN medications are helping. [facility] 30on 06-27-2024 30 The patient is [...] were able to stop initially Outcome: Progressing [facility] 30 The patient is Moder ately [...] were able to stop initially Outcome: Progressing [facility] 94on 06-27-2024 94 Group Topic: Self Es teem Group Date: 06/27/2024 Start Time: 1045 End Time: 1130 Facilitators: Chanel Crockett OT Department: [facility] Recovery Group Focus: check in, relapse prevention, self-awareness, and self-esteem Treatment Modality: Leisure Development, Patient-Centered Therapy, and Solution-Focused Therapy Interventions utilized were patient education, problem solving, and support Purpose: regain self-worth and reinforce self-care Name: Daron Villarreal Date of : 1985 MR: [id number] Level of Participation: withdrawn Quality of Participation: Patient withdrawn during group session. No active participation or integration with peers or OT at this time. No active refusal noted. Plan to encourage pt to attend groups and engage with other peers while on the unit. Patients Problems: Patient Active Problem List Diagnosis Alcohol abuse with withdrawal ([facility]/HCC) GERD (gastroesophageal reflux disease) Alcohol dependence with withdrawal, uncomplicated ([facility]) Alcohol abuse ETOH abuse [facility] NURSNOTEon 06-27-2024 NURSNOTE Patient resting in b ed in no acute distress, C/O anxiety, restless legs, sweats, and insomnia. CIWA=3. Scheduled and PRN medications given. Normal [facility] NURSNOTE Patient is alert, or iented x4. Appetite good, ate 100% of breakfast. Pt reports mild anxiety, film writer will give PRN vistaril. Pt denies all other withdrawal symptoms. CIWA 1. Pt states he is awaiting transfer to [facility] tomorrow. [facility] NURSNOTE The patient is resti ng in his room at this time, no signs of acute distress. Slept throughout the shift, no major issues. Vitals remain stable. Denied SI. Mali Saba RN [facility] 30on 06-26-2024 30 The patient is Moder ately Stable - Low risk of patient condition declining or worsening The patient's goals for the shift include Relaxation The clinical goals for the shift include Comfort/Safety Problem: Substance Abuse (Historic and Current) Goal: STG-Indicate withdrawl symptoms Outcome: Progressing Goal: STG-Willing to engage in conversations about continued abstinence Outcome: Progressing [facility] 94on 06-26-2024 94 Group Topic: Insight Group Date: 06/26/2024 Start Time: 1045 End Time: 1145 Facilitators: Maribell Hood BELT MACHINE OPERATOR Department: [facility] Recovery Number of Participants: 3 Group Focus: [...] Daron Villarreal Date of : 1985 MR: [id number] Level of Participation: minimal Quality of Participation: attentive and engaged Interactions with others: offered helpful suggestions Mood/Affect: appropriate Progress: Minimal Response: Pt. Engaged in group alongside BELT MACHINE OPERATOR and peers. Pt. Attended group late but engaged appropriately with group members in discussion about self-care habits. Pt. Did not complete assignment but took it back to his room to work on later. Plan: Pt. Will be encouraged to continue attending therapeutic recreation interventions with the BELT MACHINE OPERATOR and peers while on the unit. Patients Problems: Patient Active Problem List Diagnosis Alcohol abuse with withdrawal (CMS/HCC) GERD (gastroesophageal reflux disease) Alcohol dependence with withdrawal, uncomplicated ([facility]) Alcohol abuse ETOH abuse [facility] NURSNOTEon 06-26-2024 NURSNOTE PRN Vistaril 25mg gi xavier for anxiety. Mali Saba RN [facility] NURSNOTE PRN meds given. Clon idine 0.1mg given for restlessness. Trazodone 50mg given for insomnia. Mali Saba RN [facility] NURSNOTE The patient assessme nt is complete. The patient denies SI, no pain at this time. Compliant with medications. Consumed 100% of his dinner. NO skin issues noted. No signs of acute distress at this time. Last BM 06/26/24. Mali Saba RN [facility] NURSNOTE Pt has been calm and cooperative today. Pt received PRNs for anxiety and aches, pt states these were effective. Pt denies any other issues. [facility] NURSNOT Pt given PRN tylenol for 6/10 headache. PRN effective, pain now rated a 4/10. Pt denies any other issues or concerns. [facility] NURSNOTE The patient slept throughout the shift, no major issues. Pleasant and cooperative with staff. Compliant with medications. Denied SI, no signs of acute distress. Patient vitals are stable this morning. At this time the patient is sleeping in his bed. Mali Saba RN [facility] 3006-25-2024 30 Problem: Substance A buse [...] Recommendations to address these barriers include relaxation. [facility] 30 The patient is Moder ately Stable - Low risk of patient condition declining or worsening The patient's goals for the shift include Relaxation The clinical goals for the shift include Comfort/Safety [facility] 94on 06-25-2024 94 Group Topic: Relapse Prevention Group Date: 06/25/2024 Start Time: 1100 End Time: 1200 Facilitators: CHRIS Crow Department: [facility] Recovery Number of Participants: 4 Group Focus: [...] Daron Villarreal Date of : 1985 MR: [id number] Level of Participation: refused Progress: None Response: Pt. Actively refused integration into group with BELT MACHINE OPERATOR and peers at this time. Plan: Pt. Will be encouraged to attend therapeutic recreation interventions with the BELT MACHINE OPERATOR in the future. Patients Problems: Patient Active Problem List Diagnosis Alcohol abuse with withdrawal (CMS/HCC) GERD (gastroesophageal reflux disease) Alcohol dependence with withdrawal, uncomplicated (CMS/HCC) Alcohol abuse ETOH abuse [facility] NURSNOTEon 06-25-2024 NURSNOTE PRN meds given. Traz odone 50mg given for insomnia. Vistaril 25mg given for anxiety. Clonidine 0.1mg given for restlessness. Mali Saba RN [facility] NURSNOTE The patient assessme nt is complete, able to follow commands. Denies SI, no pain at this time. Consumed 100% of his dinner. No signs of acute distress at this time. Last BM 06/25/2024/formed. Patient states he is feeling anxious. Mali Saba RN [facility] NURSNOTE Patient resting comfortably in room. No needs identified. Will continue to monitor. Normal [facility] NURSNOTE Patient resting in b ed comfortably. Patient requested medication for anxiety. Medication administered per DEC. No further needs identified. Will continue to monitor. [facility] NURSNOTE Patient resting in b ed watching tv comfortably. No needs identified. Will continue to monitor. [facility] NURSNOTE Patient resting comfortably in bed. No needs identified. Will continue to monitor. Normal [facility] NURSNOTE Patient resting comfortably in bed. No needs identified. Will continue to monitor. Normal [facility] NURSNOTE The patient slept th rough the entire shift, no major issues. Denied SI, Compliant with medications. Pleasant and cooperative with staff. At this time the patient is sleeping in his bed. Mali Saba RN [facility] 30on 06-24-2024 30 Problem: Substance A [...] to address these barriers include relaxation. Normal [facility] 30 The patient is Moder ately [...] were able to stop initially Outcome: Progressing [facility] 94on 06-24-2024 94 Group Topic: Activit y Therapy Group Date: 06/24/2024 Start Time: 1400 End Time: 1450 Facilitators: Maribell Hood BELT MACHINE OPERATOR Department: [facility] Recovery Number of Participants: 2 Group Focus: [...] Daron Villarreal Date of : 1985 MR: [id number] Level of Participation: withdrawn Progress: None Response: Pt. Was withdrawn from group and remained isolated in their room. Plan: Pt. Will be encouraged to attend therapeutic recreation interventions with the BELT MACHINE OPERATOR in the future. Patients Problems: Patient Active Problem List Diagnosis Alcohol abuse with withdrawal (CMS/HCC) GERD (gastroesophageal reflux disease) Alcohol dependence with withdrawal, uncomplicated (CMS/HCC) Alcohol abuse ETOH abuse [facility] 94 Group Topic: Activit y Therapy Group Date: 06/24/2024 Start Time: 1100 End Time: 1150 Facilitators: Maribell Hood BELT MACHINE OPERATOR Department: [facility] Recovery Number of Participants: 4 Group Focus: check in, clarity of thought, communication, coping skills, family, forgiveness, leisure skills, loss/grief issues, and problem solving Treatment Modality: Leisure Development and Patient-Centered Therapy Interventions utilized were active listening, exploration, leisure development, and support Purpose: enhance coping skills, express feelings, improve communication skills, and increase insight or knowledge Name: Daron Villarreal Date of : 1985 MR: [id number] Level of Participation: active Quality of Participation: attentive, cooperative, and engaged Interactions with others: supportive Mood/Affect: appropriate Progress: Moderate Response: Pt. Engaged in group alongside BELT MACHINE OPERATOR and peers. Pt. Participated in group activity and discussion appropriately with peers. Plan: Pt. Will be encouraged to continue attending therapeutic recreation interventions with the BELT MACHINE OPERATOR and peers while on the unit. Patients Problems: Patient Active Problem List Diagnosis Alcohol abuse with withdrawal (CMS/HCC) GERD (gastroesophageal reflux disease) Alcohol dependence with withdrawal, uncomplicated ([facility]) Alcohol abuse ETOH abuse [facility] Abstracton 06-24-2024 Abstract [id number] Frantz Villarreal rickey Sheth 1985 M Date Provider Department Center 06/24/2024 NENITA HIRSCH [facility] Medical C Family History Problem Relation [...] Maternal Grandmother Paternal Grandfather Paternal Grandmother Other [facility] NURSNOTEon 06-24-2024 NURSNOTE Last 06/24/2024- formed. Mali Saba, FELIPE [facility] NURSNOTE PRN Trazodone 50mg g iven for insomnia. Mali Saba RN [facility] NURSNOTE The patient assessme nt is complete, vitals are stable. The patient is A/Ox4 and is able to follow commands. Denies SI, no signs of acute distress at this time. BS are active all 4 quads. Consumed 100% of his dinner. Mali Saba RN [facility] NURSNOTE PRN Vistaril and gabapentin given for anxiety. [facility] NURSNOTE Neurontin and vistar il and zofran given prn for anxiety and nausea. [facility] NURSNOTE Patient slept 9 hour s through the night. Scheduled and PRN medications are helping. [facility] NURSNOTE CIWA=1. [facility] 3006-23-2024 30 The patient is Moder [...] were able to stop initially Outcome: Progressing [facility] 30 The patient is Moder ately [...] were able to stop initially Outcome: Progressing [facility] 9406-23-2024 94 Group Topic: Activit y Therapy Group Date: 06/23/2024 Start Time: 1430 End Time: 1545 Facilitators: Tomasa Case BELT MACHINE OPERATOR Department: [facility] Number of Participants: 1 Group Focus: clarity of thought, communication, concentration, coping skills, family, feeling awareness/expression, leisure skills, relapse prevention, and social skills Treatment Modality: Leisure Development and Patient-Centered Therapy Interventions utilized were active listening, leisure development, story telling, and support Purpose: enhance coping skills, express feelings, improve communication skills, and increase insight or knowledge Name: Daron Villarreal Date of : 1985 MR: [id number] Level of Participation: withdrawn Response: Pt. Did not participate in the group activity. Plan: Pt will be encouraged to participate in recreational therapy groups and activities. Patients Problems: Patient Active Problem List Diagnosis Alcohol abuse with withdrawal (CMS/HCC) GERD (gastroesophageal reflux disease) Alcohol dependence with withdrawal, uncomplicated (CMS/HCC) Alcohol abuse ETOH abuse [facility] 94 Group Topic: Empower ment Group Date: 06/23/2024 Start Time: 1030 End Time: 1130 Facilitators: Christine Carrero BELT MACHINE OPERATOR Department: [facility] Recovery Number of Participants: 0 Group Focus: [...] Daron Villarreal Date of : 1985 MR: [id number] Level of Participation: refused Response: Pt was encouraged to join group but refused. Resting in room at the time of group. Plan: Encourage patient to participate in recreational therapy groups and activities. Patients Problems: Patient Active Problem List Diagnosis Alcohol abuse with withdrawal (CMS/HCC) GERD (gastroesophageal reflux disease) Alcohol dependence with withdrawal, uncomplicated (CMS/HCC) Alcohol abuse ETOH abuse [facility] NURSNOTEon 06-23-2024 NURSNOTE Patient resting in b ed in no acute distress, C/O mild anxiety, restless legs, sweats, mild tremors, and insomnia. CIWA=4. Scheduled and PRN medications given. [facility] NURSNOTE Pt ate well for margie andrea. He continues to mainly c/o a headache. PRNs given. [facility] NURSNOTE Morning meds given. CIWA = 0. Patient denies any withdrawal symptoms at this time. Slept well last night. [facility] 30on 06-22-2024 30 Problem: Substance A [...] Recommendations to address these barriers include education. [facility] 30 The patient is Moder ately [...] were able to stop initially Outcome: Progressing [facility] 94on 06-22-2024 94 Group Topic: Anger Management Group Date: 06/22/2024 Start Time: 1330 End Time: 1425 Facilitators: CHRIS Crow Department: [facility] Recovery Number of Participants: 2 Group Focus: [...] Daron Villarreal Date of : 1985 MR: [id number] Level of Participation: withdrawn Progress: None Response: Pt. Was withdrawn from group and remained isolated in their room. Plan: Pt. Will be encouraged to attend therapeutic recreation interventions with the BELT MACHINE OPERATOR in the future. Patients Problems: Patient Active Problem List Diagnosis Alcohol abuse with withdrawal (CMS/HCC) GERD (gastroesophageal reflux disease) Alcohol dependence with withdrawal, uncomplicated (CMS/HCC) Alcohol abuse ETOH abuse Normal [facility] ACETAMINOPHEN LEVELon 2023 ACETAMINOPHEN (UG/ML) IN SER/PLAS <10 Low 10-30 [facility] Comment on above: Performed By: #### L [id number] #### [facility] ([facility]) [address] [place] [address] BASIC METABOLIC PANELon 05-27 Anion gap [Moles/Vol] 12 mmol/L Normal 7-20 [place] Comment on above: Performed By: #### L [id number] #### [facility] ([facility]) [address] [place] [address] Calcium [Mass/Vol] 8.8 mg/dL Normal 8.6-10.3 [facility] Comment on above: Performed By: #### L [id number] #### [facility] ([facility]) [address] [place] [address] Chloride [Moles/Vol] 103 mmol/L Normal 98-107 [facility] Comment on above: Performed By: #### L [id number] #### [facility] ([facility]) [address] [place] [address] CO2 [Moles/Vol] 24 mmol/L Normal 21-31 [facility] Comment on above: Performed By: #### L [id number] #### [facility] ([facility]) [address] [place] [address] Creatinine [Mass/Vol] 0.72 mg/dL Normal 0.70-1.30 [place] Comment on above: Performed By: #### L [id number] #### [facility] ([facility]) [address] [place] [address] GLOMERULAR FILTRATION RATE ML/MIN/1.73 SQ M.PREDICTED 119.2 mL/min/1.73m*2 Normal >60.0 [facility] Comment on above: Result Comment: The [facility]???s estimated glomerular filtration rate (eGFR) will no [...] individuals. Performed By: #### L [id number] #### [facility] ([facility]) [address] [place] [address] Glucose [Mass/Vol] 81 mg/dL Normal 70-100 [facility] Comment on above: Performed By: #### L [id number] #### [facility] ([facility]) [address] [place] [address] Potassium [Moles/Vol] 3.9 mmol/L Normal 3.5-5.1 [place] Comment on above: Performed By: #### L [id number] #### [facility] ([facility]) [address] [place] [address] Sodium [Moles/Vol] 135 mmol/L Low 136-145 [facility] Comment on above: Performed By: #### L [id number] #### [facility] ([facility]) [address] [place] [address] Urea nitrogen [Mass/Vol] 14 mg/dL Normal 7-25 [facility] Comment on above: Performed By: #### L [id number] #### [facility] ([facility]) [address] [place] [address] UREA NITROGEN/CREATININE (MASS RATIO) IN SER/PLAS 19.4 Normal [facility] Comment on above: Performed By: #### L [id number] #### [facility] ([facility]) [address] [place] [address] CBC WITH AUTO DIFFERENTIALon 06-22-2024 Basophils (Bld) [#/Vol] 0.05 10*3/uL Normal 0.00-0.20 [facility] Comment on above: Performed By: #### L [id number] #### [facility] ([facility]) [address] [place] [address] Basophils/100 WBC (Bld) 0.9 % Normal 0.0-1.0 [facility] Comment on above: Performed By: #### L [id number] #### [facility] ([facility]) [address] [place] [address] Eosinophils (Bld) [#/Vol] 0.33 10*3/uL Normal 0.00-0.50 [facility] Comment on above: Performed By: #### L [id number] #### [facility] ([facility]) [address] [place] [address] Eosinophils/100 WBC (Bld) 5.8 % Normal 0.0-6.0 [facility] Comment on above: Performed By: #### L [id number] #### [facility] ([facility]) [address] [place] [address] Erythrocyte distribution width (RBC) [Ratio] 12.7 % Normal 11.5-15.0 [facility] Comment on above: Performed By: #### L [id number] #### [facility] ([facility]) [address] [place] [address] ERYTHROCYTE MEAN CORPUSCULAR HEMOGLOBIN CONCENTRATION (G/DL) BY AUTOMATED 34.4 g/dL Normal 32.0-35.0 [facility] Comment on above: Performed By: #### L [id number] #### [facility] ([facility]) [address] [place] [address] Hematocrit (Bld) [Volume fraction] 50.0 % Normal 39.0-55.0 [facility] Comment on above: Performed By: #### L [id number] #### [facility] ([facility]) [address] [place] [address] Hemoglobin (Bld) [Mass/Vol] 17.2 g/dL High 13.0-17.0 [facility] Comment on above: Performed By: #### L [id number] #### [facility] ([facility]) [address] [place] [address] Immature granulocytes (Bld) [#/Vol] 0.01 10*3/uL Normal 0.00-0.20 [facility] Comment on above: Performed By: #### L [id number] #### [facility] ([facility]) [address] [place] [address] Immature granulocytes/100 WBC (Bld) 0.2 % Normal 0.0-1.0 [facility] Comment on above: Performed By: #### L [id number] #### [facility] ([facility]) [address] [place] [address] Lymphocytes (Bld) [#/Vol] 2.58 10*3/uL Normal 1.20-4.00 [facility] Comment on above: Performed By: #### L [id number] #### [facility] ([facility]) [address] [place] [address] Lymphocytes/100 WBC (Bld) 45.3 % High 20.0-45.0 [facility] Comment on above: Performed By: #### L [id number] #### [facility] ([facility]) [address] [place] [address] MCH (RBC) [Entitic mass] 30.3 pg Normal 27.0-33.0 [facility] Comment on above: Performed By: #### L [id number] #### [facility] ([facility]) [address] [place] [address] MCV (RBC) [Entitic vol] 88.0 fL Normal 82.0-98.0 [facility] Comment on above: Performed By: #### L [id number] #### [facility] (BEAKER) [address] [place] [address] Monocytes (Bld) [#/Vol] 0.41 10*3/uL Normal 0.10-1.00 [facility] Comment on above: Performed By: #### L [id number] #### [facility] ([facility]) [address] [place] [address] Monocytes/100 WBC (Bld) 7.2 % Normal 5.0-12.0 [facility] Comment on above: Performed By: #### L [id number] #### [facility] ([facility]) [address] [place] [address] Neutrophils (Bld) [#/Vol] 2.31 10*3/uL Normal 1.60-7.60 [facility] Comment on above: Performed By: #### L [id number] #### [facility] ([facility]) [address] [place] [address] Neutrophils/100 WBC (Bld) 40.6 % Normal 40.0-72.0 [facility] Comment on above: Performed By: #### L [id number] #### [facility] ([facility]) [address] [place] [address] NRBC (PER 100 WBCS) BY AUTOMATED COUNT 0.0 % Normal 0 [facility] Comment on above: Performed By: #### L [id number] #### [facility] ([facility]) [address] [place] [address] PLATELETS (10*3/UL) IN BLOOD AUTOMATED COUNT 211 10*3/uL Normal 150-400 [facility] Comment on above: Performed By: #### L [id number] #### [facility] ([facility]) [address] [place] [address] RBC (Bld) [#/Vol] 5.68 10*6/uL Normal 4.20-5.70 [facility] Comment on above: Performed By: #### L [id number] #### [facility] ([facility]) [address] [place] [address] WBC (Bld) [#/Vol] 5.69 10*3/uL Normal 4.00-10.60 [facility] Comment on above: Performed By: #### L [id number] #### [facility] ([facility]) [address] [place] [address] CHOLESTEROL, TOTALon 06-22- 024 Cholesterol [Mass/Vol] 199 mg/dL Normal 120-200 [facility] Comment on above: Result Comment: CHOL ESTEROL REFERENCE RANGE: 20 YEARS AND OLDER CARDIOVASCULAR RISK Less than 200 mg/dL Low Risk 200 to 239 mg/dL Borderline Risk 240 mg/dL and greater High Risk Performed By: #### L [id number] #### [facility] ([facility]) [address] [place] [address] CONSULTon 06-22-2024 CONSULT ------ -- Attestation signed by Reyna Bueno MD at 06/23/2024 12:54 PM Case was discussed with the Master Control Engineer Dr Parikh. I agree with the history, [...] @RESPSOURCE@ Ad (more content not included)... Normal [facility] DETOX PANEL URINEon 06-22-20 24 AMPHETAMINE+METHAMPHE TAMINE SCREEN (PRESENCE) IN URINE Negative Normal Negative [facility] Comment on above: Performed By: #### L [id number] #### [facility] ([facility]) [address] [place] [address] BARBITURATES PRESENCE IN URINE BY SCREEN METHOD Negative Normal Negative [facility] Comment on above: Performed By: #### L [id number] #### [facility] ([facility]) [address] [place] [address] Benzodiazepines Ql (U) Negative Normal Negative [facility] Comment on above: Performed By: #### L [id number] #### [facility] ([facility]) [address] [place] [address] CANNABINOID (PRESENCE) IN URINE BY SCREEN METHOD Positive Abnormal Negative [facility] Comment on above: Performed By: #### L [id number] #### [facility] ([facility]) [address] [place] [address] Cocaine Ql (U) Negative Normal Negative [facility] Comment on above: Performed By: #### L [id number] #### [facility] ([facility]) [address] [place] [address] METHADONE (PRESENCE) IN URINE BY SCREEN METHOD Negative Normal Negative [facility] Comment on above: Performed By: #### L [id number] #### [facility] [address] [place] [address] OPIATES (PRESENCE) IN URINE BY SCREEN METHOD Negative Normal Negative [facility] Comment on above: Performed By: #### L [id number] #### [facility] ([facility]) [address] [place] [address] PHENCYCLIDINE PRESENCE IN URINE BY SCREEN METHOD Negative Normal Negative [facility] Comment on above: Performed By: #### L [id number] #### [facility] ([facility]) [address] [place] [address] Propoxyphene Screen Ql (U) Negative Normal Negative [facility] Comment on above: Performed By: #### L [id number] #### [facility] ([facility]) [address] [place] [address] TRICYCLIC ANTIDEPRESSANTS (PRESENCE) IN URINE Negative Normal Negative [facility] Comment on above: Performed By: #### L [id number] #### [facility] ([facility]) [address] [place] [address] ETHANOLon 06-22-2024 ETHANOL CALCULATED (%) Normal [facility] Comment on above: Performed By: #### L [id number] ####[facility] ([facility])[address] [place] [address] Magnesium [Mass/Vol] 60.1 mg/dL Normal [facility] Comment on above: Performed By: #### L [id number] ####[facility] ([facility])[address] [place] [address] GAMMA GTon 06-22-2024 Amylase [Catalytic activity/Vol] 54 U/L Normal 9-64 [facility] Comment on above: Performed By: #### L [id number] #### [facility] ([facility]) [address] [place] [address] HEPATIC FUNCTION PANELon Albumin [Mass/Vol] 4.5 g/dL Normal 3.5-5.7 [facility] Comment on above: Performed By: #### L [id number] #### [facility] ([facility]) [address] [place] [address] ALP [Catalytic activity/Vol] 61 U/L Normal 34-104 [facility] Comment on above: Performed By: #### L [id number] #### [facility] ([facility]) [address] [place] [address] ALT [Catalytic activity/Vol] 27 U/L Normal 7-52 [facility] Comment on above: Performed By: #### L [id number] #### [facility] ([facility]) [address] [place] [address] AST [Catalytic activity/Vol] 21 U/L Normal 13-39 [facility] Comment on above: Performed By: #### L [id number] #### [facility] ([facility]) [address] [place] [address] Bilirubin [Mass/Vol] 1.2 mg/dL High 0.3-1.0 [facility] Comment on above: Performed By: #### L [id number] #### [facility] ([facility]) [address] [place] [address] Magnesium [Mass/Vol] 0.1 mg/dL Normal 0-0.2 [facility] Comment on above: Performed By: #### L [id number] #### [facility] ([facility]) [address] [place] [address] Protein [Mass/Vol] 7.5 g/dL Normal 6.0-8.3 [facility] Comment on above: Performed By: #### L [id number] #### [facility] ([facility]) [address] [place] [address] HPon 06-22-2024 HP SUBJECTIVE: Daron Villarreal is a 38 y.o. male admitted 06/22/2024 to [facility] inpatient recovery services for alcohol dependence with active withdrawal. Attending Physician at the Time of Consult: Severiano Chauhan MD History of Present Illness: Daron Villarreal is a 38 YOM that presents to [facility] inpatient recovery services for alcohol dependence with active withdrawal. Patient reports drinking 8 12 oz beers daily with last drink occurring this morning. Patient states he followed up with the [facility] when he was discharged from detox 6 months ago and was able to maintain sobriety for a few months before relapsing. Patient has a history of MDD and PTSD and is currently prescribe fluoxetine 40 mg daily. Patient also has a recent psychiatric admission in which he was admitted for suicide attempt. Patient was discharged from [facility] 10 days ago. 1. Alcohol: Beer [...] Treatment or Efforts to Decrease Use: Yes, [facility] and other detox facilities. Response to substance abuse treatment: multiple failed attempts at sobriety. Past Psychiatric History: Inpatient Hx: Yes, recently discharged from [facility] in [place] for suicide attempt. Outpatient Hx: Yes Hx of Suicidal Ideation: Yes Hx of Suicide Attempts: Yes Hx of Violence/Aggression Towards others (including threats): Denies Access to Fire Arms and/or Weapons: Denies Current Treatment: Patient reports hx of of MDD and PTSD. Patient currently receives mental health treatment at at clinic in [place]. PAST MEDICAL HISTORY: Past Medical History: Past Medical History: Diagnosis Date Addiction to drug ([facility]) Alcohol abuse Alcoholism ([facility]) Anxiety Depression Withdrawal symptoms, alcohol (CMS/HCC) [...] History Born and Raised: Currently living in [place], [place] Housing: Housed Employment: Unemployed Educational Level: [...] Urine Nega (more content not included)... Normal [facility] MAGNESIUMon 06-22-2024 Magnesium [Mass/Vol] 2.1 mg/dL Normal 1.9-2.7 [facility] Comment on above: Performed By: #### L [id number] #### [facility] ([facility]) [address] [place] [address] NURSNOTEon 06-22-2024 NURSNOTE Evening meds given a long with PRN vistaril for anxiety and trazodone for sleep. Patient denies any other needs at this time. States his headache is getter better. PRN Tylenol effective. Normal [facility] NURSNOTE Vital signs and asse ssment completed. Patient complains of a headache. No sweating or tremor noted. PRN tylenol and gabapentin given. Denies any other needs at this time. Normal [facility] NURSNOTE PRN Tylenol given fo r headache. Normal [facility] NURSNOTE Pt is admitted to e unit to detox from alcohol. He reports drinking 8-12 12 ounce cans of beer a day. He reports his last drink was approximately 0800 06/22/24. Pt is experiencing mild withdrawal at this time with main complaint being a headache. Pt oriented to unit. Will continue to monitor. Normal [facility] PHOSPHORUSon 06-22-2024 Magnesium [Mass/Vol] 2.5 mg/dL Normal 2.5-5.0 [facility] Comment on above: Performed By: #### L [id number] #### [facility] ([facility]) [address] [place] [address] RPRon 06-22-2024 REAGIN AB PRESENCE IN SERUM BY RPR Non-Reactive Normal Nonreactive [facility] Comment on above: Performed By: #### L [id number] #### [facility] ([facility]) [address] [place] [address] TSHon 06-22-2024 THYROTROPIN (MIU/L) IN SER/PLAS BY DETECTION LIMIT <= 0.05 MIU/L 3.54 mIU/L Normal 0.34-5.60 [facility] Comment on above: Performed By: #### L [id number] #### [facility] ([facility] [address] [place] [address] URIC ACIDon 06-22-2024 Magnesium [Mass/Vol] 6.3 mg/dL Normal 4.4-7.6 [facility] Comment on above: Performed By: #### L [id number] ####[facility] ([facility])[address] [facility] [place] [address] URINALYSISon 06-22-2024 BILIRUBIN, TOTAL PRESENCE IN URINE Negative Normal Negative [facility] Comment on above: Order Comment: Micro scopics not performed on urines with negative chemical reactions unless requested on original order. Performed By: #### L [id number] #### [facility] ([facility]) [address] [place] [address] Clarity (U) Clear Normal Clear [facility] Comment on above: Order Comment: Micro scopics not performed on urines with negative chemical reactions unless requested on original order. Performed By: #### L [id number] #### [facility] ([facility]) [address] [place] [address] Color (U) Straw Abnormal Yellow [facility] Comment on above: Order Comment: Micro scopics not performed on urines with negative chemical reactions unless requested on original order. Performed By: #### L [id number] #### [facility] ([facility]) [address] [place] [address] Glucose (U) [Mass/Vol] Negative Normal Negative [facility] Comment on above: Order Comment: Micro scopics not performed on urines with negative chemical reactions unless requested on original order. Performed By: #### L [id number] #### [facility] ([facility]) [address] [place] [address] HEMOGLOBIN PRESENCE IN URINE Negative Normal Negative [facility] Comment on above: Order Comment: Micro scopics not performed on urines with negative chemical reactions unless requested on original order. Performed By: #### L [id number] #### [facility] ([facility]) [address] [place] [address] Ketones Ql (U) Negative Normal Negative [facility] Comment on above: Order Comment: Micro scopics not performed on urines with negative chemical reactions unless requested on original order. Performed By: #### L [id number] #### [facility] ([facility]) [address] [place] [address] LEUKOCYTE ESTERASE PRESENCE IN URINE BY TEST STRIP Negative Normal Negative [facility] Comment on above: Order Comment: Micro scopics not performed on urines with negative chemical reactions unless requested on original order. Performed By: #### L [id number] #### [facility] ([facility]) [address] [place] [address] NITRITE PRESENCE IN URINE Negative Normal Negative [facility] Comment on above: Order Comment: Micro scopics not performed on urines with negative chemical reactions unless requested on original order. Performed By: #### L [id number] #### [facility] ([facility]) [address] [address] pH (U) 6.0 [pH] Normal 5.0-8.0 [facility] Comment on above: Order Comment: Micro scopics not performed on urines with negative chemical reactions unless requested on original order. Performed By: #### L [id number] #### [facility] ([facility]) [address] [place] [address] Protein (U) [Mass/Vol] Negative Normal Negative [facility] Comment on above: Order Comment: Micro scopics not performed on urines with negative chemical reactions unless requested on original order. Performed By: #### L [id number] #### [facility] ([facility]) [address] [place] [address] Specific gravity (U) [Rel density] 1.004 Low 1.015-1.020 [facility] Comment on above: Order Comment: Micro scopics not performed on urines with negative chemical reactions unless requested on original order. Performed By: #### L [id number] #### [facility] ([facility]) [address] [place] [address] .Fentanyl Scrn wo Conf,Uron 06-14-2024 Ur Fentanyl Scrn Negative Normal NEG <1.0 [facility] Comment on above: Performed By: #### C [id number] ####[place] [address] Ur Fentanyl Scrn Qnt 0.50 ng/mL Normal <=0.99 [facility] Comment on above: Performed By: #### C [id number] ####[place] [address] .UA Microscp Aon 06-14-2024 UA Mucus Present Normal Absent [facility] Comment on above: Performed By: #### . Urinalysis Microscopic Auto ####[place] [address] UA RBC Quant 0 /HPF Normal 0-5 [facility] Comment on above: Performed By: #### . Urinalysis Microscopic Auto ####[place] [address] UA Sperm Present Abnormal Absent [facility] Comment on above: Performed By: #### . Urinalysis Microscopic Auto ####[place] [address] UA Squepi Cells Quant <1 Normal 0-29 [facility] Comment on above: Performed By: #### . Urinalysis Microscopic Auto ####[place] [address] UA WBC Quant 0 /HPF Normal 0-5 [facility] Comment on above: Performed By: #### . Urinalysis Microscopic Auto ####[place] [address] .eGFRon 06-14-2024 GFR/1.73 sq M.predicted MDRD (S/P/Bld) [Vol rate/Area] mL/min/{1.73_m2} Normal >=60 [facility] Comment on above: Result Comment: [facility] Laboratories have implemented the eGFR calculation approach [...] = years Performed By: #### E GFR ####[address] [address] CBC w/ Diffon 06-14-2024 Erythrocyte distribution width (RBC) [Ratio] 13.7 % Normal 11.6-14.8 [facility] Comment on above: Performed By: #### C BC ####[address] [address] Hematocrit (Bld) [Volume fraction] 44.0 % Normal 41.0-53.0 [facility] Comment on above: Performed By: #### C BC ####[address] [address] Hemoglobin (Bld) [Mass/Vol] 15.2 g/dL Normal 13.5-17.5 [facility] Comment on above: Performed By: #### C BC ####[address] [address] MCH (RBC) [Entitic mass] 30.7 pg Normal 27.0-35.0 [facility] Comment on above: Performed By: #### C BC ####[address] [address] MCHC 34.4 % Normal 31.0-37.0 [facility] Comment on above: Performed By: #### C BC ####[address] [address] MCV (RBC) [Entitic vol] 89.3 fL Normal 80.0-100.0 [facility] Comment on above: Performed By: #### C BC ####[address] [address] Platelet 239 x10*3/mcL Normal 150-450 [facility] Comment on above: Performed By: #### C BC ####[place] [id number] Platelet mean volume (Bld) [Entitic vol] 7.7 fL Normal 6.7-10.6 [facility] Comment on above: Performed By: #### C BC ####[place] [id number] RBC 4.93 x10*6/mcL Normal 4.30-5.80 [facility] Comment on above: Performed By: #### C BC ####[place] [id number] WBC 7.4 x10*3/mcL Normal 4.5-11.0 [facility] Comment on above: Performed By: #### C BC ####[place] [id number] CMPon 06-14-2024 Albumin [Mass/Vol] 4.0 g/dL Normal 3.2-4.9 [facility] Comment on above: Performed By: #### C OMP ####[place] [id number] Albumin/Globulin [Mass ratio] 1.6 {ratio} Normal 1.1-2.2 [facility] Comment on above: Performed By: #### C OMP ####[place] [id number] Alk Phos 53 IU/L Normal 32-91 [facility] Comment on above: Performed By: #### C OMP ####[address] [address] ALT [Catalytic activity/Vol] 48 U/L Normal 17-63 [facility] Comment on above: Performed By: #### C OMP ####[address] [address] Anion gap [Moles/Vol] 8 mmol/L Normal 4-12 [facility] Comment on above: Performed By: #### C OMP ####[address] [address] AST [Catalytic activity/Vol] 31 U/L Normal 15-41 [facility] Comment on above: Performed By: #### C OMP ####[address] [address] Bili Total 0.8 mg/dL Normal 0.3-1.2 [facility] Comment on above: Performed By: #### C OMP ####[address] [address] Calcium [Mass/Vol] 9.0 mg/dL Normal 8.5-10.3 [facility] Comment on above: Performed By: #### C OMP ####[address] [address] Chloride [Moles/Vol] 102 mmol/L Normal 98-110 [facility] Comment on above: Performed By: #### C OMP ####[address] [address] CO2 [Moles/Vol] 24 mmol/L Normal 22-32 [facility] Comment on above: Performed By: #### C OMP ####[address] [address] Creatinine [Mass/Vol] 0.83 mg/dL Normal 0.61-1.24 [facility] Comment on above: Performed By: #### C OMP ####[address] [address] Glucose [Mass/Vol] 104 mg/dL High 70-99 [facility] Comment on above: Performed By: #### C OMP ####[address] [address] Potassium [Moles/Vol] 4.0 mmol/L Normal 3.4-4.8 [facility] Comment on above: Performed By: #### C OMP ####[place] [id number] Protein [Mass/Vol] 6.5 g/dL Normal 6.5-8.1 [facility] Comment on above: Performed By: #### C OMP ####[place] [id number] Sodium [Moles/Vol] 134 mmol/L Normal 133-142 [facility] Comment on above: Performed By: #### C OMP ####[place] [id number] Urea nitrogen [Mass/Vol] 15 mg/dL Normal 8-26 [facility] Comment on above: Performed By: #### C OMP ####[place] [id number] Urea nitrogen/Creatinine [Mass ratio] 18.1 mg/mg Normal 10.0-20.0 [facility] Comment on above: Performed By: #### C OMP ####[place] [id number] Diff Autoon 06-14-2024 Baso Absolute 0.2 x10*3/mcL Normal 0.0-0.2 [facility] Comment on above: Performed By: #### . Automated Diff ####[address] [address] Basophils/100 WBC (Bld) 3.1 % High 0.0-1.2 [facility] Comment on above: Performed By: #### . Automated Diff ####[place] [id number] Eos Absolute 0.5 x10*3/mcL High 0.0-0.4 [facility] Comment on above: Performed By: #### . Automated Diff ####[address] [address] Eosinophils/100 WBC (Bld) 7.2 % High 0.0-6.1 [facility] Comment on above: Performed By: #### . Automated Diff ####[address] [address] Lymph Absolute 2.0 x10*3/mcL Normal 1.0-4.8 [facility] Comment on above: Performed By: #### . Automated Diff ####[place] [id number] Lymphocytes/100 WBC (Bld) 26.6 % Low 27.2-40.8 [facility] Comment on above: Performed By: #### . Automated Diff ####[place] [id number] [place] Absolute 0.8 x10*3/mcL Normal 0.3-1.1 [facility] Comment on above: Performed By: #### . Automated Diff ####[place] [id number] Monocytes/100 WBC (Bld) 10.6 % Normal 4.7-13.9 [facility] Comment on above: Performed By: #### . Automated Diff ####[address] [address] Neutro Absolute 3.9 x10*3/mcL Normal 1.8-7.7 [facility] Comment on above: Performed By: #### . Automated Diff ####[address] [address] Neutro Auto 52.5 % Normal 47.2-70.8 [facility] Comment on above: Performed By: #### . Automated Diff ####[address] [address] ED Clinical Summaryon 2023 ED Clinical Summary Normal [facility] ED Note-Nursingon 06-14-2024 ED Note-Nursing Normal [facility] ED Note-Physicianon 06-14-20 ED Note-Physician Normal [facility] Ethanolon 06-14-2024 Ethanol, Plasma <10 Normal <=9 [facility] Comment on above: Result Comment: To c onvert mg/dL to g/dL, divide result by 1,000. Legal limit of intoxication is 80 mg/dL (0.08 g/dL). Performed By: #### A LC ####[place] [id number] Magnesiumon 06-14-2024 Magnesium [Mass/Vol] 2.0 mg/dL Normal 1.7-2.4 [facility] Comment on above: Performed By: #### M G ####[address] [address] UA w Culture if Indon 2023 Color (U) Colorless Normal Yellow [facility] Comment on above: Performed By: #### U CI ####[address] [address] Ketones Ql (U) Negative Normal Negative [facility] Comment on above: Performed By: #### U CI ####[address] [address] UA Blood Negative Normal Negative [facility] Comment on above: Performed By: #### U CI ####[address] [address] UA Clarity Clear Normal Clear [facility] Comment on above: Performed By: #### U CI ####[address] [address] UA Glucose Normal Normal Negative [facility] Comment on above: Performed By: #### U CI ####[address] [address] UA Leukocyte Esterase Negative Normal Negative [facility] Comment on above: Performed By: #### U CI ####[address] [address] UA Nitrite Negative Normal Negative [facility] Comment on above: Performed By: #### U CI ####[address] [address] UA pH 6.5 Normal 4.5 - 7.8 [facility] Comment on above: Performed By: #### U CI ####[address] [address] UA Protein Negative Normal Negative [facility] Comment on above: Performed By: #### U CI ####[address] [address] UA Source Clean Catch Normal [facility] Comment on above: Performed By: #### U CI ####[address] [address] UA Spec Grav 1.006 Normal 1.003-1.035 [facility] Comment on above: Performed By: #### U CI ####[address] [address] UA Urobilinogen Normal Normal 0.2 - 1.0 [facility] Comment on above: Performed By: #### U CI ####[place] [id number] Urobilinogen (U) [Mass/Vol] Negative Normal Negative [facility] Comment on above: Performed By: #### U CI ####[address] [address] UDS Compon 06-14-2024 Creatinine [Mass/Vol] 19.1 mg/dL Normal [facility] Comment on above: Performed By: #### C [id number] ####[address] [address] Ur Amph Scrn Negative Normal NEG = <1000 [facility] Comment on above: Performed By: #### C [id number] ####[address] [address] Ur Yenifer Scrn Negative Normal NEG = <200 [facility] Comment on above: Performed By: #### C [id number] ####[address] [address] Ur Benzodia Scrn Positive Abnormal NEG = <200 [facility] Comment on above: Result Comment: This unconfirmed positive screening result is to be used for medical treatment purposes only. Unconfirmed screening results must not be used for non-medical purposes (e.g. employment testing, legal testing). Performed By: #### C [id number] ####[address] [address] Ur Cannab Scrn Positive Abnormal NEG = <50 [facility] Comment on above: Result Comment: This unconfirmed positive screening result is to be used for medical treatment purposes only. Unconfirmed screening results must not be used for non-medical purposes (e.g. employment testing, legal testing). Performed By: #### C [id number] ####[address] [address] Ur Cocaine Scrn Negative Normal NEG = <300 [facility] Comment on above: Performed By: #### C [id number] ####[address] [address] Ur Methadone Scn Negative Normal NEG = <300 [facility] Comment on above: Performed By: #### C [id number] ####[address] [address] [address] Ur Opiate Scrn Negative Normal NEG = <300 [facility] Comment on above: Performed By: #### C [id number] ####[address] [address] Ur Oxy Screen Negative Normal NEG = <100 [facility] Comment on above: Performed By: #### C [id number] ####[address] [address] Ur Oxy Scrn Qnt 3 ng/mL Normal <=99 [facility] Comment on above: Performed By: #### C [id number] ####[address] [address] Ur PCP Scrn Negative Normal NEG = <25 [facility] Comment on above: Performed By: #### C [id number] ####[address] [place] [address] UA pH 6.5 Normal 4.5 - 7.8 [facility] Comment on above: Performed By: #### C [id number] ####[facility] [place] [address] UA Spec Grav 1.005 Normal 1.003-1.035 [facility] Comment on above: Performed By: #### C D:[id number] ####[address] [place] [address] EKG 12 Leadon 06-11-2024 Atrial Rate 89 BPM [facility] P Forbes 50 degrees [facility] P-R Interval 152 ms [facility] Q-T Interval 364 ms [facility] QRS Duration 86 ms [facility] QTc Calculation (Bazett) 442 ms [facility] R Forbes 30 degrees [facility] T Forbes 39 degrees [facility] Ventricular Rate 89 BPM [facility] Normal sinus rhythm Septal infarct (cited on or before 08-JUN-2024) Abnormal ECG When compared with ECG of 08-JUN-2024 13:54, No significant change was found Confirmed by STUART JERNIGAN ([id number]) on 06/11/2024 10:56:52 AM [facility] Stuart Jernigan MD - 06/11/2024 Normal sinus [...] STUART JERNIGAN ([id number]) on 06/11/2024 10:56:48 AM [employer] EKG 12 LeadOrdered By: Stuart Jernigan on 06-11-2024 Atrial Rate 99 BPM [employer] Work Phone: P Forbes 53 degrees [employer] Work Phone: P-R Interval 148 ms [employer] Work Phone: Q-T Interval 340 ms [employer] Work Phone: QRS Duration 80 ms [employer] Work Phone: QTc Calculation (Bazett) 436 ms [employer] Work Phone: R Forbes 36 degrees [employer] Work Phone: T Forbes 32 degrees [employer] Work Phone: Ventricular Rate 99 BPM [employer] Work Phone: No Panel Informationon 06-11 [employer] ACETAMINOPHENon 06-08-2024 Acetaminophen [Mass/Vol] ug/mL Normal 0.0-20.0 [facility] Comment on above: Performed By: #### U R_CS #### [facility] [address] [place] [address] ANION GAPon 06-08-2024 Anion gap [Moles/Vol] 13.0 mmol/L Normal 8.0-16.0 [facility] Comment on above: Result Comment: ANIO N GAP = Sodium -(Chloride + CO2) Performed By: #### P CFLU #### [facility] [address] [facility] [address] Acetaminophen Levelon 2023 Acetaminophen [Mass/Vol] ug/mL 0.0 - 20.0 ug/mL [facility] Comment on above: Performed at [facility] [address] [place] [address] Anion Gapon 06-08-2024 Anion gap [Moles/Vol] 13.0 mmol/L 8.0 - 16.0 meq/L [facility] Comment on above: ANION GAP = Sodium - (Chloride + CO2) Performed at [facility] [address] [place] [address] BASIC METABOL PANELon 2023 Calcium [Mass/Vol] 9.1 mg/dL Normal 8.5-10.5 [facility] Comment on above: Performed By: #### U R_CS #### [facility] [address] [place] [address] Chloride [Moles/Vol] 102 mmol/L Normal 98-111 [facility] Comment on above: Performed By: #### U R_CS #### [facility] [address] [place] [address] CO2 [Moles/Vol] 21 mmol/L Low 23-33 [facility] Comment on above: Performed By: #### U R_CS #### [facility] [address] [place] [address] Creatinine [Mass/Vol] 0.8 mg/dL Normal 0.4-1.2 [facility] Comment on above: Performed By: #### U R_CS #### [facility] [address] [place] [address] Glucose [Mass/Vol] 91 mg/dL Normal 70-108 [facility] Comment on above: Performed By: #### U R_CS #### [facility] [address] [place] [address] POTASSIUM WITH REFLEX MG 4.5 meq/L Normal 3.5-5.2 [facility] Comment on above: Result Comment: Low level specimen hemolysis is present as indicated by the interference level index on the Aldair analyzer. The reported K+ level may be falsely increased. If clinically warranted, recollection of the specimen is suggested. Performed By: #### U R_CS #### [facility] [address] [place] [address] Sodium [Moles/Vol] 136 mmol/L Normal 135-145 [facility] Comment on above: Performed By: #### U R_CS #### [facility] [address] [place] [address] Urea nitrogen [Mass/Vol] 21 mg/dL Normal 7-22 [facility] Comment on above: Performed By: #### U R_CS #### [facility] [address] [address] Basic metabolic 2000 panelon 06-08-2024 Calcium [Mass/Vol] 9.1 mg/dL 8.5 - 10. 5 mg/dL [facility] Comment on above: Performed at [facility] [address] [place] [address] Chloride [Moles/Vol] 102 mmol/L 98 - 11 1 meq/L [facility] CO2 [Moles/Vol] 21 mmol/L Low 23 - 33 meq/L [facility] Creatinine [Mass/Vol] 0.8 mg/dL 0.4 - 1.2 mg/dL [facility] Glucose [Mass/Vol] 91 mg/dL 70 - 108 mg/dL [facility] Potassium [Moles/Vol] 4.5 mmol/L 3.5 - 5.2 meq/L [facility] Comment on above: Low level specimen h emolysis is present as indicated by the interference level index on the Aldair analyzer. The reported K+ level may be falsely increased. If clinically warranted, recollection of the specimen is suggested. Sodium [Moles/Vol] 136 mmol/L 135 - 145 meq/L [facility] [employer] Urea nitrogen [Mass/Vol] 21 mg/dL 7 - 22 mg/dL [facility] CALCULATED OSMOLALITYon 05-26 Osmolality [Osmolality] 274.5 mosm/kg Low 275.0-300.0 [facility] Comment on above: Performed By: #### P CFLU #### [facility] [address] [place] [address] CBC WITH DIFFERENTIALon 05-26 ABS BASOPHILS 0.1 thou/mm3 Normal 0.0-0.1 [facility] Comment on above: Performed By: #### U R_CS #### [facility] [address] [place] [address] ABS EOSINOPHILS 0.5 thou/mm3 High 0.0-0.4 [facility] Comment on above: Performed By: #### U R_CS #### [facility] [address] [place] [address] ABS IMMATURE GRANS (IG) 0.02 thou/mm3 Normal 0.00-0.07 [facility] Comment on above: Performed By: #### U R_CS #### [address] [address] ABS LYMPHOCYTES 1.9 thou/mm3 Normal 1.0-4.8 [facility] Comment on above: Performed By: #### U R_CS #### [facility] [address] [place] [address] ABS MONOCYTES 0.6 thou/mm3 Normal 0.4-1.3 [facility] Comment on above: Performed By: #### U R_CS #### [facility] [address] [place] [address] ABS NEUTROPHILS 4.6 thou/mm3 Normal 1.8-7.7 [facility] Comment on above: Performed By: #### U R_CS #### [facility] [address] [place] [address] Basophils/100 WBC (Bld) 1.2 % Normal [facility] Comment on above: Performed By: #### U R_CS #### [facility] [address] [place] [address] Eosinophils/100 WBC (Bld) 6.8 % Normal [facility] Comment on above: Performed By: #### U R_CS #### [facility] [address] [place] [address] Erythrocyte distribution width (RBC) [Ratio] 12.9 % Normal 11.5-14.5 [facility] Comment on above: Performed By: #### U R_CS #### [address] [address] Hematocrit (Bld) [Volume fraction] 47.7 % Normal 42.0-52.0 [facility] Comment on above: Performed By: #### U R_CS #### [address] [address] Hemoglobin (Bld) [Mass/Vol] 16.4 g/dL Normal 14.0-18.0 [facility] Comment on above: Performed By: #### U R_CS #### [address] [address] IMMATURE GRANS (IG) 0.3 % Normal [facility] Comment on above: Performed By: #### U R_CS #### [address] [address] Lymphocytes/100 WBC (Bld) 24.7 % Normal [facility] Comment on above: Performed By: #### U R_CS #### [address] [address] MCH (RBC) [Entitic mass] 30.5 pg Normal 26.0-33.0 [facility] Comment on above: Performed By: #### U R_CS #### [address] [address] MCHC (RBC) [Mass/Vol] 34.4 g/dL Normal 32.2-35.5 [facility] Comment on above: Performed By: #### U R_CS #### [address] [address] MCV (RBC) [Entitic vol] 88.7 fL Normal 80.0-94.0 [facility] Comment on above: Performed By: #### U R_CS #### [address] [address] Monocytes/100 WBC (Bld) 7.8 % Normal [facility] Comment on above: Performed By: #### U R_CS #### [address] [address] Neutrophils/100 WBC (Bld) 59.2 % Normal [facility] Comment on above: Performed By: #### U R_CS #### [facility] [address] [place] [address] NRBC 0 /100 wbc Normal [facility] Comment on above: Performed By: #### U R_CS #### [facility] [address] [place] [address] PLATELET 230 thou/mm3 Normal 130-400 [facility] Comment on above: Performed By: #### U R_CS #### [facility] [address] [place] [address] Platelet mean volume (Bld) [Entitic vol] 9.7 fL Normal 9.4-12.4 [facility] Comment on above: Performed By: #### U R_CS #### [place] [address] RBC 5.38 mill/mm3 Normal 4.70-6.10 [facility] Comment on above: Performed By: #### U R_CS #### [address] [address] RDW-SD 41.7 fL Normal 35.0-45.0 [facility] Comment on above: Performed By: #### U R_CS #### [address] [address] WBC 7.7 thou/mm3 Normal 4.8-10.8 [facility] Comment on above: Performed By: #### U R_CS #### [facility] [address] [place] [address] CBC with Auto Differentialon 06-08-2024 Basophils (Bld) [...] Interpretation and review of laboratory results Abnormal [facility] Lymphocytes Absolute 1.9 [facility] Monocytes Absolute 0.6 [facility] Neutrophils Absolute 4.6 [facility] Nucleated RBC/100 WBC (Bld) [Ratio] 0 % /100 wbc [facility] Comment on above: Performed at [facility] [address] [place] [address] Platelets (Bld) [#/Vol] 230 10*3/uL [facility] RBC (Bld) [#/Vol] 5.38 10*6/uL [facility] WBC (Bld) [#/Vol] 7.7 10*3/uL [facility] CKon 06-08-2024 CK [Catalytic activity/Vol] 207 U/L High 55 - 170 U/L [facility] Comment on above: Performed at [facility] [address] [place] [address] CK [Catalytic activity/Vol] 207 U/L High 55-170 [facility] Comment on above: Performed By: #### P CFLU #### [facility] [address] [place] [address] DRUG ABUSE SCREENon 06-08-20 24 AMPHETAMINE/METHAMPH Negative Normal NEGATIVE [facility] Comment on above: Performed By: #### T OXPN #### [facility] [address] [place] [address] BARBITURATE Negative Normal NEGATIVE [facility] Comment on above: Performed By: #### T OXPN #### [facility] [address] [place] [address] Benzodiazepines Ql (U) Positive Normal NEGATIVE [facility] Comment on above: Performed By: #### T OXPN #### [facility] [address] [place] [address] Cannabinoids Screen Ql (U) Positive Normal NEGATIVE [facility] Comment on above: Performed By: #### T OXPN #### [facility] [address] [place] [address] COCAINE METABOLITE Negative Normal NEGATIVE [facility] Comment on above: Performed By: #### T OXPN #### [address] [address] FENTANYL Negative Normal NEGATIVE [facility] Comment on above: Result Comment: A N [...] only. Performed By: #### T OXPN #### [address] [address] Opiates Ql (U) Negative Normal NEGATIVE [facility] Comment on above: Performed By: #### T OXPN #### [facility] [address] [place] [address] OXYCODONE Negative Normal NEGATIVE [facility] Comment on above: Performed By: #### T OXPN #### [facility] [address] [place] [address] Phencyclidine Ql (U) Negative Normal NEGATIVE [facility] Comment on above: Performed By: #### T OXPN #### [address] [address] EKG 12-LEADon 06-08-2024 EKG 12-LEAD 89 89 152 86 364 442 50 30 39 Normal sinus rhythm Septal infarct (cited on or before 08-JUN-2024) Abnormal ECG When compared with ECG of 08-JUN-2024 13:54, No significant change was found Confirmed by STUART JERNIGAN ([id number]) on 06/11/2024 10:56:52 AM [email or web address] TestByDateTime?PatientID=0 [id number]&Date=08-06-2024&T arnoldo=[id number]&Test Type=ECG&Site=3&OutputType =PDF&Ext=PDF Normal [facility] EKG 12-LEAD 99 99 148 80 340 436 53 36 32 Normal sinus rhythm Septal infarct , age undetermined Abnormal ECG When compared with ECG of 02-FEB-2023 18:13, Septal infarct is now Present Nonspecific T wave abnormality is worse in Lateral leads Confirmed by STUART JERNIGAN ([id number]) on 06/11/2024 10:56:48 AM [email or web address] TestByDateTime?PatientID=0 [id number]&Date=08-06-2024&T arnoldo=[id number]&Test Type=ECG&Site=3&OutputType =PDF&Ext=PDF Normal [facility] ETHYL ALCOHOL BLOODon 2023 ETHYL ALCOHOL BLOOD < 0.01 Normal 0.00 [facility] Comment on above: Performed By: #### U R_CS #### [facility] [address] [place] [address] Ethanolon 06-08-2024 Ethanol [Mass/Vol] mg/dL 0.00 % [facility] Comment on above: Performed at [facility] [address] [place] [address] GFR, ESTIMATEDon 06-08-2024 GFR/1.73 sq M.predicted MDRD (S/P/Bld) [Vol rate/Area] mL/min/{1.73_m2} Normal >60 [facility] Comment on above: Pediatric calculator [...] that affects renal tubular secretion. Performed at [facility] [address] [place] [address] Result Comment: Yobani atric calculator link [email or web address].kidney.org/professionals/kdoqi/gfr_calculatorped [...] secretion. Performed By: #### P CFLU #### [facility] [address] [place] [address] HEPATIC FUNCTION PANELon Albumin [Mass/Vol] 4.0 g/dL Normal 3.5-5.1 [facility] Comment on above: Performed By: #### U R_CS #### [address] [address] ALP [Catalytic activity/Vol] 63 U/L Normal 38-126 [facility] Comment on above: Performed By: #### U R_CS #### [address] [address] ALT [Catalytic activity/Vol] 47 U/L Normal 11-66 [facility] Comment on above: Performed By: #### U R_CS #### [address] [address] AST [Catalytic activity/Vol] 30 U/L Normal 5-40 [facility] Comment on above: Performed By: #### U R_CS #### [address] [address] Bilirubin [Mass/Vol] 0.7 mg/dL Normal 0.3-1.2 [facility] Comment on above: Performed By: #### U R_CS #### [address] [address] Bilirubin.direct [Mass/Vol] 0.2 mg/dL Normal 0.1-13.8 [facility] Comment on above: Performed By: #### U R_CS #### [address] [address] Protein [Mass/Vol] 7.1 g/dL Normal 6.1-8.0 [facility] Comment on above: Performed By: #### U R_CS #### [facility] [address] [place] [address] HIGH SENSTIVITY TROPONINon 0 06-08-2024 HIGH SENSTIVITY TROPONIN 6 ng/L Normal 0-12 [facility] Comment on above: Result Comment: The high-sensitivity troponin T result should not be compared with other troponin methodologies. Rising or falling high-sensitivity troponin T is significant if >= 6. Performed By: #### U R_CS #### [facility] [address] [place] [address] Hepatic function 2000 panelo n 06-08-2024 Albumin BCG dye [Mass/Vol] 4.0 g/dL 3.5 - 5.1 g/dL [facility] ALP [Catalytic activity/Vol] 63 U/L 38 - 126 U/L [facility] [employer] ALT No additional P-5'-P [Catalytic activity/Vol] 47 U/L 11 - 66 U/L [facility] AST [Catalytic activity/Vol] 30 U/L 5 - 40 U/L [facility] Bilirubin [Mass/Vol] 0.7 mg/dL 0.3 - 1 .2 mg/dL [facility] Bilirubin.conjugated [Mass/Vol] 0.2 mg/dL 0.1 - 13.8 mg/dL [facility] Protein [Mass/Vol] 7.1 g/dL 6.1 - 8.0 g/dL [facility] Comment on above: Performed at [facility] [address] [place] [address] No Panel Informationon 06-08 Interpretation and review of laboratory results Abnormal [facility] Osmolalityon 06-08-2024 Osmolality Calc [Osmolality] 274.5 Low [facility] Comment on above: Performed at [facility] [address] [place] [address] SALICYLATEon 06-08-2024 SALICYLATE < 0.3 Low 2.0-10.0 [facility] Comment on above: Performed By: #### U R_CS #### [facility] [address] [place] [address] Salicylateon 06-08-2024 Salicylates [Mass/Vol] mg/dL Low 2.0 - 10.0 mg/dL [facility] Comment on above: Performed at [facility] [address] [place] [address] Troponinon 06-08-2024 Troponin, High Sensitivity 6 ng/L 0 - 12 ng/L [facility] Comment on above: The high-sensitivity troponin T result should not be compared with other troponin methodologies. Rising or falling high-sensitivity troponin T is significant if >= 6. Performed at [facility] [address] [place] [id number] [place] [address] URINE REFLEX C + Son 024 Bilirubin Ql (U) Negative Normal NEGATIVE [facility] Comment on above: Performed By: #### U R_CS #### [facility] [address] [place] [address] CHARACTER CLEAR Normal CLEAR-SL CLOUD [facility] Comment on above: Performed By: #### U R_CS #### [facility] [address] [place] [address] Color (U) YELLOW Normal STRAW-YELLOW [facility] Comment on above: Performed By: #### U R_CS #### [facility] [address] [place] [address] Glucose Ql (U) Negative Normal NEGATIVE [facility] Comment on above: Performed By: #### U R_CS #### [facility] [address] [place] [address] Hemoglobin Ql (U) Negative Normal NEGATIVE [facility] Comment on above: Performed By: #### U R_CS #### [facility] [address] [place] [address] Ketones Ql (U) Negative Normal NEGATIVE [facility] Comment on above: Performed By: #### U R_CS #### [facility] [address] [place] [address] LEUKOCYTES Negative Normal NEGATIVE [facility] Comment on above: Performed By: #### U R_CS #### [facility] [address] [place] [address] Nitrite Ql (U) Negative Normal NEGATIVE [facility] Comment on above: Performed By: #### U R_CS #### [facility] [address] [place] [address] pH (U) 5.5 [pH] Normal 5.0 - 9.0 [facility] Comment on above: Performed By: #### U R_CS #### [facility] [address] [place] [address] Protein Ql (U) Negative Normal NEGATIVE [facility] Comment on above: Performed By: #### U R_CS #### [facility] [address] [place] [address] Specific gravity (U) [Rel density] 1.023 Normal 1.002-1.030 [facility] Comment on above: Performed By: #### U R_CS #### [address] [address] Urobilinogen Qn (U) 0.2 {Philipp'U}/dL Normal 0.0 - 1. 0 [facility] Comment on above: Performed By: #### U R_CS #### [facility] [address] [address] Urinalysis dipstick W Reflex Culture panel (U)on 06-08-2024 Bilirubin Ql (U) Negative NEGATIVE [facility] Character (U) CLEAR CLEAR-SL CLOUD [facility] Comment on above: Performed at [facility] [address] [place] [address] Color, UA YELLOW STRAW-YELLOW [facility] Urobilinogen, Urine 0.2 [facility] WBC LM.HPF (Urine sed) [#/Area] Negative NEGATIVE [facility] Urine Drug Screenon 06-08-20 24 Amphetamines Screen Ql (U) Negative NEGATIVE [facility] Barbiturates Screen Ql (U) Negative NEGATIVE [facility] Benzodiazepines Ql (U) Positive NEGATIVE [facility] Benzoylecgonine Screen Ql (U) Negative NEGATIVE [facility] Cannabinoids Screen Ql (U) Positive NEGATIVE [facility] Fentanyl Negative NEGATIVE [facility] Comment on above: A Negative result [...] are for medical use only. Performed at [facility] [address] [address] Opiates Screen Ql (U) Negative NEGATIVE [facility] Oxycodone Negative NEGATIVE [facility] Phencyclidine Ql (U) Negative NEGATIVE [facility] CBC AND AUTO DIFFon 06-07-20 24 ABSOLUTE BASOPHIL 0.0 X10E9/L Normal 0.0-0.2 [facility] Comment on above: Performed By: #### C BCA, CMP, 5643-2 #### [facility] ([id number]) [address] [place] [address] ABSOLUTE NEUTROPHIL 4.4 X10E9/L Normal 1.5-6.6 [facility] Comment on above: Performed By: #### C BCA, CMP, 5643-2 #### [facility] ([id number]) [address] [place] [address] Basophils/100 WBC (Bld) 0.3 % Normal [facility] Comment on above: Performed By: #### C SUSAN, CMP, 5643-2 #### [facility] ([id number]) [address] [place] [address] Eosinophils (Bld) [#/Vol] 0.4 10*3/uL Normal 0.0-0.4 [facility] Comment on above: Performed By: #### Domenic DAVIS, CMP, 5643-2 #### [facility] ([id number]) [address] [place] [address] Eosinophils/100 WBC (Bld) 4.9 % Normal [facility] Comment on above: Performed By: #### Domenic DAVIS, SYLVIA, 5643-2 #### [facility] ([id number]) [address] [place] [address] Erythrocyte distribution width (RBC) [Ratio] 13.5 % Normal 11.5-15.0 [facility] Comment on above: Performed By: #### Domenic DAVIS, CMP, 5643-2 #### [facility] ([id number]) [address] [place] [address] Hematocrit (Bld) [Volume fraction] 47.9 % Normal 39-49 [facility] Comment on above: Performed By: #### Domenic DAVIS, CMP, 5643-2 #### [facility] ([id number]) [address] [place] [address] Hemoglobin (Bld) [Mass/Vol] 16.9 g/dL Normal 13.0-17.0 [facility] Comment on above: Performed By: #### C SUSAN, CMP, 5643-2 #### [facility] ([id number]) [address] [place] [address] Lymphocytes (Bld) [#/Vol] 2.4 10*3/uL Normal 1.0-3.5 [facility] Comment on above: Performed By: #### Domenic DAVIS, CMP, 5643-2 #### [facility] ([id number]) [address] [place] [address] Lymphocytes/100 WBC (Bld) 30.2 % Normal [facility] Comment on above: Performed By: #### Domenic DAVIS CMP, 5643-2 #### [facility] ([id number]) [address] [place] [address] MCH (RBC) [Entitic mass] 31.3 pg Normal 27-34 [facility] Comment on above: Performed By: #### Domenic DAVIS CMP, 5643-2 #### [facility] ([id number]) [address] [place] [address] MCHC (RBC) [Mass/Vol] 35.3 g/dL Normal 32-36 [facility] Comment on above: Performed By: #### Domenic DAVIS CMP, 5643-2 #### [facility] ([id number]) [address] [place] [address] MCV (RBC) [Entitic vol] 89 fL Normal 80-100 [facility] Comment on above: Performed By: #### Domenic DAVIS CMP, 5643-2 #### [facility] ([id number]) [address] [place] [address] Monocytes (Bld) [#/Vol] 0.7 10*3/uL Normal 0-0.9 [facility] Comment on above: Performed By: #### Domenic DAVIS CMP, 5643-2 #### [facility] ([id number]) [address] [place] [address] Monocytes/100 WBC (Bld) 8.7 % Normal [facility] Comment on above: Performed By: #### Domenic DAVIS CMP, 5643-2 #### [facility] ([id number]) [address] [place] [address] Neutrophils/100 WBC (Bld) 55.9 % Normal [facility] Comment on above: Performed By: #### Domenic DAVIS CMP, 5643-2 #### [facility] ([id number]) [address] [place] [address] Platelet mean volume (Bld) [Entitic vol] 7.5 fL Normal 7-12 [facility] Comment on above: Performed By: #### Domenic DAVIS CMP, 5643-2 #### [facility] ([id number]) [address] [place] [address] Platelets (Bld) [#/Vol] 252 10*3/uL Normal 150-450 [facility] Comment on above: Performed By: #### Domenic DAVIS, CMP, 5643-2 #### [facility] ([id number]) [address] [place] [address] RBC COUNT 5.39 X10E12/L Normal 4.10-5.70 [facility] Comment on above: Performed By: #### Domenic DAVIS CMP, 5643-2 #### [facility] ([id number]) [address] [place] [address] WBC (Bld) [#/Vol] 7.9 10*3/uL Normal 4.0-11.0 [facility] Comment on above: Performed By: #### Domenic DAVIS CMP, 5643-2 #### [facility] ([id number]) [address] [facility] [place] [address] COMPREHENSIVE METABOLIC PANE Per 06-07-2024 Albumin [Mass/Vol] 4.3 g/dL Normal 3.2-5.3 [facility] Comment on above: Performed By: #### Domenic DAVIS, CMP, 5643-2 #### [facility] ([id number]) [address] [place] [address] ALP [Catalytic activity/Vol] 47 U/L Normal 39-130 [facility] Comment on above: Performed By: #### Domenic DAVIS, CMP, 5643-2 #### [facility] ([id number]) [address] [place] [address] ALT [Catalytic activity/Vol] 47 U/L High 0-40 [facility] Comment on above: Performed By: #### C SUSAN, CMP, 5643-2 #### [facility] ([id number]) [address] [facility] [address] Anion gap [Moles/Vol] 8 mmol/L Normal 5-15 [facility] Comment on above: Performed By: #### C SUSAN, CMP, 5643-2 #### [facility] ([id number]) [address] [place] [address] AST [Catalytic activity/Vol] 30 U/L Normal 0-41 [facility] Comment on above: Performed By: #### C SUSAN, CMP, 5643-2 #### [facility] ([id number]) [address] [place] [address] Bilirubin [Mass/Vol] 0.8 mg/dL Normal 0.3-1.2 [facility] Comment on above: Performed By: #### Domenic DAVIS, CMP, 5643-2 #### [facility] ([id number]) [address] [place] [address] Calcium [Mass/Vol] 9.4 mg/dL Normal 8.5-10.5 [facility] Comment on above: Performed By: #### C SUSAN, CMP, 5643-2 #### [facility] ([id number]) [address] [place] [address] Chloride [Moles/Vol] 103 mmol/L Normal 98-109 [facility] Comment on above: Performed By: #### C SUSAN, CMP, 5643-2 #### [facility] ([id number]) [address] [place] [address] CO2 [Moles/Vol] 24 mmol/L Normal 22-32 [facility] Comment on above: Performed By: #### C BCA, CMP, 5643-2 #### [facility] ([id number]) [address] [facility] [place] [address] Creatinine [Mass/Vol] 0.86 mg/dL Normal 0.60-1.30 [facility] Comment on above: Result Comment: METH OD TRACEABLE TO IDMS STANDARD Performed By: #### C SYLVIA DAVIS, 5643-2 #### [facility] ([id number]) [address] [place] [address] eGFR (CKD-EPI) NON-RACE DEPENDENT >90 Normal >59 [facility] Comment on above: Result Comment: Reported eGFR is based on the CKD-EPI 2020 equation that does not use a race coefficient. Performed By: #### C SYLVIA DAVIS, 5643-2 #### [facility] ([id number]) [address] [place] [address] Glucose [Mass/Vol] 88 mg/dL Normal 65-99 [facility] Comment on above: Performed By: #### Domenic DAVIS CMP, 5643-2 #### [facility] ([id number]) [address] [place] [address] Potassium [Moles/Vol] 4.2 mmol/L Normal 3.5-5.0 [facility] Comment on above: Performed By: #### C SYLVIA DAVIS, 5643-2 #### [facility] ([id number]) [address] [place] [address] Protein [Mass/Vol] 6.9 g/dL Normal 6.0-8.0 [facility] Comment on above: Performed By: #### C SYLVIA DAVIS, 5643-2 #### [facility] ([id number]) [facility] [place] [address] Sodium [Moles/Vol] 135 mmol/L Normal 134-146 [facility] Comment on above: Performed By: #### C SYLVIA DAVIS, 5643-2 #### [facility] ([id number]) [facility] [place] [address] Urea nitrogen [Mass/Vol] 20 mg/dL Normal 5-23 [facility] Comment on above: Performed By: #### C SYLVIA DAVIS, 5643-2 #### [facility] ([id number]) [address] [place] [address] DRUG SCREEN, URINEon 024 AMPHETAMINE/METHAMP Negative Normal [facility] Comment on above: Result Comment: AMPH /METH screening cut off = 1000 ng/mL Performed By: #### C BCA, BMP, 3298-7, 4024-6, 5643-2 #### [facility] ([id number]) [address] [place] [address] #### 61570-6 #### [facility] ([id number]) [address] [place] [address], [address] [place] [address] BARBITURATES Negative Normal NEG [facility] Comment on above: Result Comment: Yenifer iturates screening cut off value = 200 ng/mL Performed By: #### C BCA, BMP, 3298-7, 4024-6, 5643-2 #### [facility] ([id number]) [address] [place] [address] #### 67991-6 #### [facility] ([id number]) [address] [place] [address], [address] [place] [address] BENZODIAZEPINES Positive Abnormal NEG [facility] Comment on above: Result Comment: Conf irmation available upon request. Benzodiazepines screening cut off value = 200 ng/mL Performed By: #### C BCA, BMP, 3298-7, 4024-6, 5643-2 #### [facility] ([id number]) [address] [place] [address] #### 47632-1 #### [facility] ([id number]) [address] [place] [address], [address] [place] [address] CANNABINOIDS Positive Abnormal NEG [facility] Comment on above: Result Comment: Conf irmation available upon request. Cannabinoids/THC screening cut off value = 50 ng/mL Performed By: #### C BCA, BMP, 3298-7, 4024-6, 5643-2 #### [facility] ([id number]) [address] [place] [address] #### 77512-2 #### [facility] ([id number]) [facility], [address] [place] [address] COCAINE METABOLITE Negative Normal NEG [facility] Comment on above: Result Comment: Coca ine screening cut off value = 300 ng/mL Performed By: #### C BCA, BMP, 3298-7, 4024-6, 5643-2 #### [facility] ([id number]) [address] [place] [address] #### 85931-6 #### [facility] ([id number]) [address] [place] [address], [address] [place] [address] ECSTASY Negative Normal [facility] Comment on above: Result Comment: Ecst asy screening cut off value = 500 ng/mL This report is intended for use in clinical monitoring or management of patients. Performed By: #### C BCA, BMP, 3298-7, 4024-6, 5643-2 #### [facility] ([id number]) [address] [place] [address] #### 90339-0 #### [facility] ([id number]) [address] [place] [address], [address] [place] [address] METHADONE Negative Normal [facility] Comment on above: Result Comment: Meth adone screening cut off value = 300 ng/mL. Performed By: #### C BCA, BMP, 3298-7, 4024-6, 5643-2 #### [facility] ([id number]) [address] [place] [address] #### 85059-7 #### [facility] ([id number]) [address] [place] [address], [address] [place] [address] OPIATES Negative Normal NEG [facility] Comment on above: Result Comment: Opia rolando screening cut off value = 300 ng/mL NOTE: This test is used for the detection of codeine, hydrocodone (>1000 ng/mL), morphine and hydromorphone (>900 ng/mL) in urine. Performed By: #### C ANA DAVIS, 3298-7, 4024-6, 5643-2 #### [facility] ([id number]) [address] [place] [address] #### 55745-1 #### [facility] ([id number]) [facility], [address] [place] [address] OXYCODONE Negative Normal NEG [facility] Comment on above: Result Comment: Oxyc odone screening cut off value = 300 ng/mL NOTE: This test is used for the detection of oxycodone and oxymorphone in urine. Performed By: #### C SUSAN, ANA, 3298-7, 4024-6, 5643-2 #### [facility] ([id number]) [address] [place] [address] #### 94247-8 #### [facility] ([id number]) [address] [place] [address], [address] [place] [address] PHENCYCLIDINE Negative Normal NEG [facility] Comment on above: Result Comment: Phen cyclidine screening cut off value = 25 ng/mL Performed By: #### C ANA DAVIS, 3298-7, 4024-6, 5643-2 #### [facility] ([id number]) [address] [place] [address] #### 94236-4 #### [facility] ([id number]) [address] [place] [address], [address] [place] [address] ETHANOLon 06-07-2024 Ethanol [Mass/Vol] mg/dL Normal 0.00-0.08 [facility] Comment on above: Result Comment: This report is intended for use in clinical monitoring or management of patients. Performed By: #### C SUSAN, BMP, 3298-7, 4024-6, 5643-2 #### [facility] ([id number]) [address] [place], [place] [address] #### 54979-9 #### [facility] ([id number]) [address] [place] [address], [address] [place] [address] Inpatient Clinical Summaryon 06-07-2024 Inpatient Clinical Summary Normal [facility] Progress Note-Nurseon 2023 Progress Note-Nurse Normal [facility] Progress Note-Nurseon 2023 Progress Note-Nurse Normal [facility] Progress Note-Nurseon 2023 Progress Note-Nurse Normal [facility] Progress Note-Nurse Normal [facility] .Fentanyl Scrn wo Conf,Uron 06-04-2024 Ur Fentanyl Scrn Negative Normal NEG <1.0 [facility] Comment on above: Performed By: #### C [id number] ####[place] [address] Ur Fentanyl Scrn Qnt 0.19 ng/mL Normal <=0.99 [facility] Comment on above: Performed By: #### C D:[id number] ####[place] [address] .UA Microscp Aon 06-04-2024 UA Amorph Sed Present Abnormal Absent [facility] Comment on above: Performed By: #### . Urinalysis Microscopic Auto ####[address] [address] UA Mucus Present Normal Absent [facility] Comment on above: Performed By: #### . Urinalysis Microscopic Auto ####[address] [address] UA RBC Quant 0 /HPF Normal 0-5 [facility] Comment on above: Performed By: #### . Urinalysis Microscopic Auto ####[place] [address] UA Squepi Cells Quant <1 Normal 0-29 [facility] Comment on above: Performed By: #### . Urinalysis Microscopic Auto ####[place] [address] UA WBC Quant 1 /HPF Normal 0-5 [facility] Comment on above: Performed By: #### . Urinalysis Microscopic Auto ####[address] [address] .eGFRon 06-04-2024 GFR/1.73 sq M.predicted MDRD (S/P/Bld) [Vol rate/Area] mL/min/{1.73_m2} Normal >=60 [facility] Comment on above: Result Comment: [facility] Laboratories have implemented the eGFR calculation approach [...] = years Performed By: #### E GFR ####[address] [address] CBC w/ Diffon 06-04-2024 Erythrocyte distribution width (RBC) [Ratio] 13.7 % Normal 11.6-14.8 [facility] Comment on above: Performed By: #### C BC ####[address] [address] Hematocrit (Bld) [Volume fraction] 44.9 % Normal 41.0-53.0 [facility] Comment on above: Performed By: #### C BC ####[address] [address] Hemoglobin (Bld) [Mass/Vol] 15.4 g/dL Normal 13.5-17.5 [facility] Comment on above: Performed By: #### C BC ####[place] [id number] MCH (RBC) [Entitic mass] 31.1 pg Normal 27.0-35.0 [facility] Comment on above: Performed By: #### C BC ####[place] [address] MCHC 34.3 % Normal 31.0-37.0 [facility] Comment on above: Performed By: #### C BC ####[place] [id number] MCV (RBC) [Entitic vol] 90.8 fL Normal 80.0-100.0 [facility] Comment on above: Performed By: #### C BC ####[place] [id number] Platelet 228 x10*3/mcL Normal 150-450 [facility] Comment on above: Performed By: #### C BC ####[place] [id number] Platelet mean volume (Bld) [Entitic vol] 7.7 fL Normal 6.7-10.6 [facility] Comment on above: Performed By: #### C BC ####[place] [id number] RBC 4.95 x10*6/mcL Normal 4.30-5.80 [facility] Comment on above: Performed By: #### C BC ####[place] [id number] WBC 7.9 x10*3/mcL Normal 4.5-11.0 [facility] Comment on above: Performed By: #### C BC ####[place] [id number] CMPon 06-04-2024 Albumin [Mass/Vol] 3.8 g/dL Normal 3.2-4.9 [facility] Comment on above: Performed By: #### C OMP ####[address] [address] Albumin/Globulin [Mass ratio] 1.4 {ratio} Normal 1.1-2.2 [facility] Comment on above: Performed By: #### C OMP ####[address] [address] Alk Phos 51 IU/L Normal 32-91 [facility] Comment on above: Performed By: #### C OMP ####[address] [address] ALT [Catalytic activity/Vol] 37 U/L Normal 17-63 [facility] Comment on above: Performed By: #### C OMP ####[address] [address] Anion gap [Moles/Vol] 7 mmol/L Normal 4-12 [facility] Comment on above: Performed By: #### C OMP ####[address] [address] AST [Catalytic activity/Vol] 32 U/L Normal 15-41 [facility] Comment on above: Performed By: #### C OMP ####[address] [address] Bili Total 1.2 mg/dL Normal 0.3-1.2 [facility] Comment on above: Performed By: #### C OMP ####[address] [address] Calcium [Mass/Vol] 8.5 mg/dL Normal 8.5-10.3 [facility] Comment on above: Performed By: #### C OMP ####[address] [address] Chloride [Moles/Vol] 102 mmol/L Normal 98-110 [facility] Comment on above: Performed By: #### C OMP ####[address] [address] CO2 [Moles/Vol] 26 mmol/L Normal 22-32 [facility] Comment on above: Performed By: #### C OMP ####[address] [address] Creatinine [Mass/Vol] 0.83 mg/dL Normal 0.61-1.24 [facility] Comment on above: Performed By: #### C OMP ####[address] [address] Glucose [Mass/Vol] 116 mg/dL High 70-99 [facility] Comment on above: Performed By: #### C OMP ####[address] [address] Potassium [Moles/Vol] 4.3 mmol/L Normal 3.4-4.8 [facility] Comment on above: Performed By: #### C OMP ####[address] [address] Protein [Mass/Vol] 6.6 g/dL Normal 6.5-8.1 [facility] Comment on above: Performed By: #### C OMP ####[address] [address] Sodium [Moles/Vol] 135 mmol/L Normal 133-142 [facility] Comment on above: Performed By: #### C OMP ####[address] [address] Urea nitrogen [Mass/Vol] 19 mg/dL Normal 8-26 [facility] Comment on above: Performed By: #### C OMP ####[address] [address] Urea nitrogen/Creatinine [Mass ratio] 22.9 mg/mg High 10.0-20.0 [facility] Comment on above: Performed By: #### C OMP ####[address] [address] Diff Autoon 06-04-2024 Baso Absolute 0.0 x10*3/mcL Normal 0.0-0.2 [facility] Comment on above: Performed By: #### . Automated Diff ####[address] [address] Basophils/100 WBC (Bld) 0.4 % Normal 0.0-1.2 [facility] Comment on above: Performed By: #### . Automated Diff ####[address] [address] Eos Absolute 0.7 x10*3/mcL High 0.0-0.4 [facility] Comment on above: Performed By: #### . Automated Diff ####[address] [address] Eosinophils/100 WBC (Bld) 8.7 % High 0.0-6.1 [facility] Comment on above: Performed By: #### . Automated Diff ####[address] [address] Lymph Absolute 2.5 x10*3/mcL Normal 1.0-4.8 [facility] Comment on above: Performed By: #### . Automated Diff ####[address] [address] Lymphocytes/100 WBC (Bld) 31.0 % Normal 27.2-40.8 [facility] Comment on above: Performed By: #### . Automated Diff ####[address] [address] [place] Absolute 0.7 x10*3/mcL Normal 0.3-1.1 [facility] Comment on above: Performed By: #### . Automated Diff ####[address] [address] Monocytes/100 WBC (Bld) 8.6 % Normal 4.7-13.9 [facility] Comment on above: Performed By: #### . Automated Diff ####[address] [address] Neutro Absolute 4.1 x10*3/mcL Normal 1.8-7.7 [facility] Comment on above: Performed By: #### . Automated Diff ####[address] [address] Neutro Auto 51.3 % Normal 47.2-70.8 [facility] Comment on above: Performed By: #### . Automated Diff ####[address] [address] Direct LDLon 06-04-2024 Direct LDL Cholesterol 88 mg/dL Normal <=99 [facility] Comment on above: Result Comment: The optimal value of LDL for individual patients may vary.The patient's history of Artherosclerosis and other cardiacrisk factors should be considered. Performed By: #### L DLD ####[place] [id number] ED Clinical Summaryon 2023 ED Clinical Summary Normal [facility] ED Note-Nursingon 06-04-2024 ED Note-Nursing Normal [facility] ED Note-Physicianon 06-04-20 ED Note-Physician Normal [facility] Ethanolon 06-04-2024 Ethanol, Plasma <10 Normal <=9 [facility] Comment on above: Result Comment: To c onvert mg/dL to g/dL, divide result by 1,000. Legal limit of intoxication is 80 mg/dL (0.08 g/dL). Performed By: #### A LC ####[address] [address] Lipid Panelon 06-04-2024 Cholesterol in LDL [Mass/Vol] mg/dL Normal 0-99 [facility] Comment on above: Result Comment: Unab le to perform calculation due to a triglyceride result of >400. See direct measure LDL for result.The optimal value of LDL for individual patients may vary.The patient's history of Artherosclerosis and other cardiacrisk factors should be considered. Performed By: #### L CHACON ####[address] [address] Cardiac Risk 3.7 Normal [facility] Comment on above: Result Comment: Men Women1/2 Average 3.43 3.27Average 4.97 4.442x Average 9.55 7.053x Average 23.99 11.04 Performed By: #### L CHACON ####[place] [address] [place] [address] Cholesterol [Mass/Vol] 178 mg/dL Normal 25-199 [facility] Comment on above: Result Comment: 0 - 17 years of age:Desirable 0-170Borderline High 170-199High >=75995 years and older:Acceptable <200Borderline High 200-239High >=240 Performed By: #### L CHACON ####[address] [address] Cholesterol in HDL [Mass/Vol] 47.6 mg/dL Normal 40.0-60.0 [facility] Comment on above: Performed By: #### L CHACON ####[address] [address] Cholesterol in VLDL [Mass/Vol] 112 mg/dL High 8-39 [facility] Comment on above: Performed By: #### L CHACON ####[address] [address] Triglyceride [Mass/Vol] 561 mg/dL Normal [facility] Comment on above: Result Comment: 0 - 17 years of age:Trig 90 - 129 Borderline HighTrig => 130 High18 years and older:Trig 150 - 199 Borderline HighTrig 200 - 499 HighTrig =>500 Very High Performed By: #### L CHACON ####[address] [address] Progress Note-Nurseon 2023 Progress Note-Nurse Normal [facility] Progress Note-Nurse Normal [facility] TSHon 06-04-2024 TSH Qn 4.33 m[IU]/L Normal 0.45-5.33 [facility] Comment on above: Result Comment: Refe rence Ranges for individuals from to 18 years of age were obtained from The [employer] Handbook (20 ed) published by [facility].Reference Ranges for Females: Females, 1st Trimester 0.05 ? 3.7 uIU/mL Females, 2nd Trimester 0.31 ? 4.35 uIU/mL Females, 3rd Trimester 0.41 ? 5.18 uIU/mL Performed By: #### T SH ####[address] [address] UA w Culture if Indon 2023 Color (U) Light-Yellow Normal Yellow [facility] Comment on above: Performed By: #### U CI ####[address] [address] Ketones Ql (U) Negative Normal Negative [facility] Comment on above: Performed By: #### U CI ####[address] [address] UA Blood Negative Normal Negative [facility] Comment on above: Performed By: #### U CI ####[address] [address] UA Clarity Turbid Normal Clear [facility] Comment on above: Performed By: #### U CI ####[address] [address] UA Glucose Normal Normal Negative [facility] Comment on above: Performed By: #### U CI ####[address] [address] UA Leukocyte Esterase Negative Normal Negative [facility] Comment on above: Performed By: #### U CI ####[address] [address] UA Nitrite Negative Normal Negative [facility] Comment on above: Performed By: #### U CI ####[address] [address] UA pH 7.5 Normal 4.5 - 7.8 [facility] Comment on above: Performed By: #### U CI ####[address] [address] UA Protein Negative Normal Negative [facility] Comment on above: Performed By: #### U CI ####[address] [address] UA Source Clean Catch Normal [facility] Comment on above: Performed By: #### U CI ####[address] [address] UA Spec Grav 1.021 Normal 1.003-1.035 [facility] Comment on above: Performed By: #### U CI ####[address] [address] UA Urobilinogen Normal Normal 0.2 - 1.0 [facility] Comment on above: Performed By: #### U CI ####[address] [address] Urobilinogen (U) [Mass/Vol] Negative Normal Negative [facility] Comment on above: Performed By: #### U CI ####[address] [address] UDS Compon 06-04-2024 Creatinine [Mass/Vol] 93.1 mg/dL Normal [facility] Comment on above: Performed By: #### C [id number] ####[address] [address] Ur Amph Scrn Negative Normal NEG = <1000 [facility] Comment on above: Performed By: #### C D:[id number] ####[address] [address] Ur Yenifer Scrn Negative Normal NEG = <200 [facility] Comment on above: Performed By: #### C D:[id number] ####[address] [address] Ur Benzodia Scrn Positive Abnormal NEG = <200 [facility] Comment on above: Result Comment: This unconfirmed positive screening result is to be used for medical treatment purposes only. Unconfirmed screening results must not be used for non-medical purposes (e.g. employment testing, legal testing). Performed By: #### C D:[id number] ####[address] [address] Ur Cannab Scrn Positive Abnormal NEG = <50 [facility] Comment on above: Result Comment: This unconfirmed positive screening result is to be used for medical treatment purposes only. Unconfirmed screening results must not be used for non-medical purposes (e.g. employment testing, legal testing). Performed By: #### C D:[id number] ####[address] [address] Ur Cocaine Scrn Positive Abnormal NEG = <300 [facility] Comment on above: Result Comment: This unconfirmed positive screening result is to be used for medical treatment purposes only. Unconfirmed screening results must not be used for non-medical purposes (e.g. employment testing, legal testing). Performed By: #### C D:[id number] ####[address] [address] Ur Methadone Scn Negative Normal NEG = <300 [facility] Comment on above: Performed By: #### C D:[id number] ####[address] [address] Ur Opiate Scrn Negative Normal NEG = <300 [facility] Comment on above: Performed By: #### C D:[id number] ####[address] [address] Ur Oxy Screen Negative Normal NEG = <100 [facility] Comment on above: Performed By: #### C D:[id number] ####[address] [address] Ur Oxy Scrn Qnt 0 ng/mL Normal <=99 [facility] Comment on above: Performed By: #### C D:[id number] ####[address] [address] Ur PCP Scrn Negative Normal NEG = <25 [facility] Comment on above: Performed By: #### C D:[id number] ####[address] [address] UA pH 7.5 Normal 4.5 - 7.8 [facility] Comment on above: Performed By: #### C D:[id number] ####[place] [id number] UA Spec Grav 1.021 Normal 1.003-1.035 [facility] Comment on above: Performed By: #### C D:[id number] ####[address] [address] .eGFRon 06-02-2024 GFR/1.73 sq M.predicted MDRD (S/P/Bld) [Vol rate/Area] mL/min/{1.73_m2} Normal >=60 [facility] Comment on above: Result Comment: [facility] Laboratories have implemented the eGFR calculation approach [...] = years Performed By: #### E GFR ####[address] [address] CBC w/ Diffon 06-02-2024 Erythrocyte distribution width (RBC) [Ratio] 13.5 % Normal 11.6-14.8 [facility] Comment on above: Performed By: #### C BC ####[address] [address] Hematocrit (Bld) [Volume fraction] 46.9 % Normal 41.0-53.0 [facility] Comment on above: Performed By: #### C BC ####[address] [address] Hemoglobin (Bld) [Mass/Vol] 16.1 g/dL Normal 13.5-17.5 [facility] Comment on above: Performed By: #### C BC ####[address] [address] MCH (RBC) [Entitic mass] 30.9 pg Normal 27.0-35.0 [facility] Comment on above: Performed By: #### C BC ####[place] [id number] MCHC 34.3 % Normal 31.0-37.0 [facility] Comment on above: Performed By: #### C BC ####[place] [id number] MCV (RBC) [Entitic vol] 90.1 fL Normal 80.0-100.0 [facility] Comment on above: Performed By: #### C BC ####[address] [address] Platelet 246 x10*3/mcL Normal 150-450 [facility] Comment on above: Performed By: #### C BC ####[address] [address] Platelet mean volume (Bld) [Entitic vol] 7.7 fL Normal 6.7-10.6 [facility] Comment on above: Performed By: #### C BC ####[address] [address] RBC 5.20 x10*6/mcL Normal 4.30-5.80 [facility] Comment on above: Performed By: #### C BC ####[address] [address] WBC 6.7 x10*3/mcL Normal 4.5-11.0 [facility] Comment on above: Performed By: #### C BC ####[address] [address] CMPon 06-02-2024 Albumin [Mass/Vol] 3.7 g/dL Normal 3.2-4.9 [facility] Comment on above: Performed By: #### C OMP ####[address] [address] Albumin/Globulin [Mass ratio] 1.3 {ratio} Normal 1.1-2.2 [facility] Comment on above: Performed By: #### C OMP ####[address] [address] Alk Phos 46 IU/L Normal 32-91 [facility] Comment on above: Performed By: #### C OMP ####[address] [address] ALT [Catalytic activity/Vol] 41 U/L Normal 17-63 [facility] Comment on above: Performed By: #### C OMP ####[address] [address] Anion gap [Moles/Vol] 6 mmol/L Normal 4-12 [facility] Comment on above: Performed By: #### C OMP ####[address] [address] AST [Catalytic activity/Vol] 30 U/L Normal 15-41 [facility] Comment on above: Performed By: #### C OMP ####[address] [address] Bili Total 0.9 mg/dL Normal 0.3-1.2 [facility] Comment on above: Performed By: #### C OMP ####[address] [address] Calcium [Mass/Vol] 8.8 mg/dL Normal 8.5-10.3 [facility] Comment on above: Performed By: #### C OMP ####[address] [address] Chloride [Moles/Vol] 106 mmol/L Normal 98-110 [facility] Comment on above: Performed By: #### C OMP ####[address] [address] CO2 [Moles/Vol] 25 mmol/L Normal 22-32 [facility] Comment on above: Performed By: #### C OMP ####[address] [address] Creatinine [Mass/Vol] 0.82 mg/dL Normal 0.61-1.24 [facility] Comment on above: Performed By: #### C OMP ####[address] [address] Glucose [Mass/Vol] 89 mg/dL Normal 70-99 [facility] Comment on above: Performed By: #### C OMP ####[address] [address] Potassium [Moles/Vol] 4.2 mmol/L Normal 3.4-4.8 [facility] Comment on above: Performed By: #### C OMP ####[address] [address] Protein [Mass/Vol] 6.6 g/dL Normal 6.5-8.1 [facility] Comment on above: Performed By: #### C OMP ####[address] [address] Sodium [Moles/Vol] 137 mmol/L Normal 133-142 [facility] Comment on above: Performed By: #### C OMP ####[address] [address] Urea nitrogen [Mass/Vol] 17 mg/dL Normal 8-26 [facility] Comment on above: Performed By: #### C OMP ####[address] [address] Urea nitrogen/Creatinine [Mass ratio] 20.7 mg/mg High 10.0-20.0 [facility] Comment on above: Performed By: #### C OMP ####[address] [address] Diff Autoon 06-02-2024 Baso Absolute 0.1 x10*3/mcL Normal 0.0-0.2 [facility] Comment on above: Performed By: #### . Automated Diff ####[address] [address] Basophils/100 WBC (Bld) 2.0 % High 0.0-1.2 [facility] Comment on above: Performed By: #### . Automated Diff ####[address] [address] Eos Absolute 0.7 x10*3/mcL High 0.0-0.4 [facility] Comment on above: Performed By: #### . Automated Diff ####[address] [address] Eosinophils/100 WBC (Bld) 11.0 % High 0.0-6.1 [facility] Comment on above: Performed By: #### . Automated Diff ####[address] [address] Lymph Absolute 2.6 x10*3/mcL Normal 1.0-4.8 [facility] Comment on above: Performed By: #### . Automated Diff ####[address] [address] Lymphocytes/100 WBC (Bld) 38.5 % Normal 27.2-40.8 [facility] Comment on above: Performed By: #### . Automated Diff ####[address] [address] [place] Absolute 0.7 x10*3/mcL Normal 0.3-1.1 [facility] Comment on above: Performed By: #### . Automated Diff ####[address] [address] Monocytes/100 WBC (Bld) 10.7 % Normal 4.7-13.9 [facility] Comment on above: Performed By: #### . Automated Diff ####[address] [address] Neutro Absolute 2.5 x10*3/mcL Normal 1.8-7.7 [facility] Comment on above: Performed By: #### . Automated Diff ####[place] [id number] Neutro Auto 37.8 % Low 47.2-70.8 [facility] Comment on above: Performed By: #### . Automated Diff ####[place] [id number] Inpatient Clinical Summaryon 06-02-2024 Inpatient Clinical Summary Normal [facility] .eGFRon 06-01-2024 GFR/1.73 sq M.predicted MDRD (S/P/Bld) [Vol rate/Area] mL/min/{1.73_m2} Normal >=60 [facility] Comment on above: Result Comment: [facility] Laboratories have implemented the eGFR calculation approach [...] = years Performed By: #### E GFR ####[place] [id number] CBC w/ Diffon 06-01-2024 Erythrocyte distribution width (RBC) [Ratio] 13.4 % Normal 11.6-14.8 [facility] Comment on above: Performed By: #### C BC ####[place] [id number] [place] [address] Hematocrit (Bld) [Volume fraction] 45.5 % Normal 41.0-53.0 [facility] Comment on above: Performed By: #### C BC ####[address] [address] Hemoglobin (Bld) [Mass/Vol] 15.6 g/dL Normal 13.5-17.5 [facility] Comment on above: Performed By: #### C BC ####[address] [address] MCH (RBC) [Entitic mass] 31.0 pg Normal 27.0-35.0 [facility] Comment on above: Performed By: #### C BC ####[place] [id number] MCHC 34.2 % Normal 31.0-37.0 [facility] Comment on above: Performed By: #### C BC ####[place] [id number] MCV (RBC) [Entitic vol] 90.4 fL Normal 80.0-100.0 [facility] Comment on above: Performed By: #### C BC ####[address] [address] Platelet 223 x10*3/mcL Normal 150-450 [facility] Comment on above: Performed By: #### C BC ####[address] [address] Platelet mean volume (Bld) [Entitic vol] 7.4 fL Normal 6.7-10.6 [facility] Comment on above: Performed By: #### C BC ####[address] [address] RBC 5.03 x10*6/mcL Normal 4.30-5.80 [facility] Comment on above: Performed By: #### C BC ####[address] [address] WBC 5.9 x10*3/mcL Normal 4.5-11.0 [facility] Comment on above: Performed By: #### C BC ####[address] [address] CMPon 06-01-2024 Albumin [Mass/Vol] 3.6 g/dL Normal 3.2-4.9 [facility] Comment on above: Performed By: #### C OMP ####[address] [address] Albumin/Globulin [Mass ratio] 1.2 {ratio} Normal 1.1-2.2 [facility] Comment on above: Performed By: #### C OMP ####[address] [address] Alk Phos 46 IU/L Normal 32-91 [facility] Comment on above: Performed By: #### C OMP ####[address] [address] ALT [Catalytic activity/Vol] 35 U/L Normal 17-63 [facility] Comment on above: Performed By: #### C OMP ####[address] [address] Anion gap [Moles/Vol] 5 mmol/L Normal 4-12 [facility] Comment on above: Performed By: #### C OMP ####[address] [address] AST [Catalytic activity/Vol] 26 U/L Normal 15-41 [facility] Comment on above: Performed By: #### C OMP ####[address] [address] Bili Total 0.6 mg/dL Normal 0.3-1.2 [facility] Comment on above: Performed By: #### C OMP ####[address] [address] Calcium [Mass/Vol] 8.9 mg/dL Normal 8.5-10.3 [facility] Comment on above: Performed By: #### C OMP ####[address] [address] Chloride [Moles/Vol] 105 mmol/L Normal 98-110 [facility] Comment on above: Performed By: #### C OMP ####[address] [address] CO2 [Moles/Vol] 28 mmol/L Normal 22-32 [facility] Comment on above: Performed By: #### C OMP ####[address] [address] Creatinine [Mass/Vol] 0.92 mg/dL Normal 0.61-1.24 [facility] Comment on above: Performed By: #### C OMP ####[address] [address] Glucose [Mass/Vol] 99 mg/dL Normal 70-99 [facility] Comment on above: Performed By: #### C OMP ####[address] [address] Potassium [Moles/Vol] 4.6 mmol/L Normal 3.4-4.8 [facility] Comment on above: Performed By: #### C OMP ####[address] [address] Protein [Mass/Vol] 6.5 g/dL Normal 6.5-8.1 [facility] Comment on above: Performed By: #### C OMP ####[address] [address] Sodium [Moles/Vol] 138 mmol/L Normal 133-142 [facility] Comment on above: Performed By: #### C OMP ####[address] [address] Urea nitrogen [Mass/Vol] 16 mg/dL Normal 8-26 [facility] Comment on above: Performed By: #### C OMP ####[address] [address] Urea nitrogen/Creatinine [Mass ratio] 17.4 mg/mg Normal 10.0-20.0 [facility] Comment on above: Performed By: #### C OMP ####[address] [address] Diff Autoon 06-01-2024 Baso Absolute 0.3 x10*3/mcL High 0.0-0.2 [facility] Comment on above: Performed By: #### . Automated Diff ####[address] [address] Basophils/100 WBC (Bld) 4.7 % High 0.0-1.2 [facility] Comment on above: Performed By: #### . Automated Diff ####[address] [address] Eos Absolute 0.6 x10*3/mcL High 0.0-0.4 [facility] Comment on above: Performed By: #### . Automated Diff ####[address] [address] Eosinophils/100 WBC (Bld) 9.3 % High 0.0-6.1 [facility] Comment on above: Performed By: #### . Automated Diff ####[address] [address] Lymph Absolute 2.3 x10*3/mcL Normal 1.0-4.8 [facility] Comment on above: Performed By: #### . Automated Diff ####[address] [address] Lymphocytes/100 WBC (Bld) 39.3 % Normal 27.2-40.8 [facility] Comment on above: Performed By: #### . Automated Diff ####[address] [address] [place] Absolute 0.6 x10*3/mcL Normal 0.3-1.1 [facility] Comment on above: Performed By: #### . Automated Diff ####[address] [address] Monocytes/100 WBC (Bld) 10.3 % Normal 4.7-13.9 [facility] Comment on above: Performed By: #### . Automated Diff ####[address] [address] Neutro Absolute 2.2 x10*3/mcL Normal 1.8-7.7 [facility] Comment on above: Performed By: #### . Automated Diff ####[address] [address] Neutro Auto 36.4 % Low 47.2-70.8 [facility] Comment on above: Performed By: #### . Automated Diff ####[address] [address] .eGFRon 05-31-2024 GFR/1.73 sq M.predicted MDRD (S/P/Bld) [Vol rate/Area] mL/min/{1.73_m2} Normal >=60 [facility] Comment on above: Result Comment: [facility] Laboratories have implemented the eGFR calculation approach [...] = years Performed By: #### E GFR ####[address] [address] Amylaseon 05-31-2024 Amylase [Catalytic activity/Vol] 57 U/L Normal 28-100 [facility] Comment on above: Performed By: #### A MY ####[address] [address] B12/Folate Lvlon 05-31-2024 Cobalamin (Vitamin B12) [Mass/Vol] 453 pg/mL Normal 180-914 [facility] Comment on above: Performed By: #### B 12FO ####[address] [address] Folate Lvl 20.9 ng/mL Normal >=5.9 [facility] Comment on above: Result Comment: A [facility] Technical Consultation has determined that deficient Folate concentrations are considered to be less than 4 ng/mL. Performed By: #### B 12FO ####[address] [address] CBC w/ Diffon 05-31-2024 Erythrocyte distribution width (RBC) [Ratio] 13.6 % Normal 11.6-14.8 [facility] Comment on above: Performed By: #### C BC ####[address] [address] Hematocrit (Bld) [Volume fraction] 44.4 % Normal 41.0-53.0 [facility] Comment on above: Performed By: #### C BC ####[address] [address] Hemoglobin (Bld) [Mass/Vol] 15.1 g/dL Normal 13.5-17.5 [facility] Comment on above: Performed By: #### C BC ####[address] [address] MCH (RBC) [Entitic mass] 30.6 pg Normal 27.0-35.0 [facility] Comment on above: Performed By: #### C BC ####[address] [address] MCHC 34.0 % Normal 31.0-37.0 [facility] Comment on above: Performed By: #### C BC ####[address] [address] MCV (RBC) [Entitic vol] 90.1 fL Normal 80.0-100.0 [facility] Comment on above: Performed By: #### C BC ####[address] [address] Platelet 238 x10*3/mcL Normal 150-450 [facility] Comment on above: Performed By: #### C BC ####[address] [address] Platelet mean volume (Bld) [Entitic vol] 7.6 fL Normal 6.7-10.6 [facility] Comment on above: Performed By: #### C BC ####[address] [address] RBC 4.93 x10*6/mcL Normal 4.30-5.80 [facility] Comment on above: Performed By: #### C BC ####[address] [address] WBC 6.9 x10*3/mcL Normal 4.5-11.0 [facility] Comment on above: Performed By: #### C BC ####[address] [address] CMPon 05-31-2024 Albumin [Mass/Vol] 3.6 g/dL Normal 3.2-4.9 [facility] Comment on above: Performed By: #### C OMP ####[address] [address] Albumin/Globulin [Mass ratio] 1.3 {ratio} Normal 1.1-2.2 [facility] Comment on above: Performed By: #### C OMP ####[address] [address] Alk Phos 45 IU/L Normal 32-91 [facility] Comment on above: Performed By: #### C OMP ####[address] [address] ALT [Catalytic activity/Vol] 38 U/L Normal 17-63 [facility] Comment on above: Performed By: #### C OMP ####[address] [place] [address] Anion gap [Moles/Vol] 7 mmol/L Normal 4-12 [facility] Comment on above: Performed By: #### C OMP ####[address] [address] AST [Catalytic activity/Vol] 25 U/L Normal 15-41 [facility] Comment on above: Performed By: #### C OMP ####[address] [address] Bili Total 0.5 mg/dL Normal 0.3-1.2 [facility] Comment on above: Performed By: #### C OMP ####[address] [address] Calcium [Mass/Vol] 8.4 mg/dL Low 8.5-10.3 [facility] Comment on above: Performed By: #### C OMP ####[address] [address] Chloride [Moles/Vol] 106 mmol/L Normal 98-110 [facility] Comment on above: Performed By: #### C OMP ####[address] [address] CO2 [Moles/Vol] 25 mmol/L Normal 22-32 [facility] Comment on above: Performed By: #### C OMP ####[address] [address] Creatinine [Mass/Vol] 1.04 mg/dL Normal 0.61-1.24 [facility] Comment on above: Performed By: #### C OMP ####[address] [address] Glucose [Mass/Vol] 97 mg/dL Normal 70-99 [facility] Comment on above: Performed By: #### C OMP ####[address] [address] Potassium [Moles/Vol] 3.7 mmol/L Normal 3.4-4.8 [facility] Comment on above: Performed By: #### C OMP ####[address] [address] Protein [Mass/Vol] 6.4 g/dL Low 6.5-8.1 [facility] Comment on above: Performed By: #### C OMP ####[address] [address] Sodium [Moles/Vol] 138 mmol/L Normal 133-142 [facility] Comment on above: Performed By: #### C OMP ####[address] [address] Urea nitrogen [Mass/Vol] 11 mg/dL Normal 8-26 [facility] Comment on above: Performed By: #### C OMP ####[address] [address] Urea nitrogen/Creatinine [Mass ratio] 10.6 mg/mg Normal 10.0-20.0 [facility] Comment on above: Performed By: #### C OMP ####[address] [address] Diff Autoon 05-31-2024 Baso Absolute 0.1 x10*3/mcL Normal 0.0-0.2 [facility] Comment on above: Performed By: #### . Automated Diff ####[address] [address] Basophils/100 WBC (Bld) 1.8 % High 0.0-1.2 [facility] Comment on above: Performed By: #### . Automated Diff ####[address] [address] Eos Absolute 0.4 x10*3/mcL Normal 0.0-0.4 [facility] Comment on above: Performed By: #### . Automated Diff ####[address] [address] Eosinophils/100 WBC (Bld) 6.2 % High 0.0-6.1 [facility] Comment on above: Performed By: #### . Automated Diff ####[address] [address] Lymph Absolute 2.5 x10*3/mcL Normal 1.0-4.8 [facility] Comment on above: Performed By: #### . Automated Diff ####[address] [address] Lymphocytes/100 WBC (Bld) 36.5 % Normal 27.2-40.8 [facility] Comment on above: Performed By: #### . Automated Diff ####[address] [address] [place] Absolute 0.8 x10*3/mcL Normal 0.3-1.1 [facility] Comment on above: Performed By: #### . Automated Diff ####[address] [address] Monocytes/100 WBC (Bld) 11.0 % Normal 4.7-13.9 [facility] Comment on above: Performed By: #### . Automated Diff ####[address] [address] Neutro Absolute 3.1 x10*3/mcL Normal 1.8-7.7 [facility] Comment on above: Performed By: #### . Automated Diff ####[address] [address] Neutro Auto 44.5 % Low 47.2-70.8 [facility] Comment on above: Performed By: #### . Automated Diff ####[address] [address] Dir Indir Bilion 05-31-2024 Bili Direct 0.1 mg/dL Normal 0.1-0.5 [facility] Comment on above: Performed By: #### D /IBILI ####[address] [address] Bili Indirect 0.4 mg/dL Normal 0.0-1.0 [facility] Comment on above: Performed By: #### D /IBILI ####[address] [place] [address] ED Clinical Summaryon 2023 ED Clinical Summary Normal [facility] Ethanolon 05-31-2024 Ethanol, Plasma <10 Normal <=9 [facility] [facility] Comment on above: Result Comment: To c onvert mg/dL to g/dL, divide result by 1,000. Legal limit of intoxication is 80 mg/dL (0.08 g/dL). Performed By: #### A LC ####[place] [id number] Lipaseon 05-31-2024 Lipase Lvl 38 IU/L Normal 22-51 [facility] Comment on above: Performed By: #### L IP ####[place] [id number] Magnesiumon 05-31-2024 Magnesium [Mass/Vol] 1.9 mg/dL Normal 1.7-2.4 [facility] Comment on above: Performed By: #### M G ####[place] [id number] PTon 05-31-2024 INR Coag (PPP) [Relative time] 1.0 {INR} Normal <=3.5 [facility] Comment on above: Result Comment: INR has no normal range. INR Therapeutic range is:2.0-3.0 (AF, CVA, TIAs, DVT prophylaxis, acute DVT)2.5-3.5 ([facility] heart valves, recurrent thrombosis/emboli) Performed By: #### P TINR ####[place] [id number] PT Coag (PPP) [Time] 10.6 s Normal 9.2-12.0 [facility] Comment on above: Performed By: #### P TINR ####[place] [id number] Phosphoruson 05-31-2024 Phosphate [Mass/Vol] 4.6 mg/dL Normal 2.5-4.6 [facility] Comment on above: Performed By: #### P HOS ####[place] [address] .Fentanyl Scrn wo Conf,Uron 05-30-2024 Ur Fentanyl Scrn Negative Normal NEG <1.0 [facility] Comment on above: Performed By: #### C [id number] ####[place] [address] Ur Fentanyl Scrn Qnt 0.32 ng/mL Normal <=0.99 [facility] Comment on above: Performed By: #### C [id number] ####[place] [address] .UA Microscp Aon 05-30-2024 UA Mucus Present Normal Absent [facility] Comment on above: Performed By: #### . Urinalysis Microscopic Auto ####[place] [address] UA RBC Quant 0 /HPF Normal 0-5 [facility] Comment on above: Performed By: #### . Urinalysis Microscopic Auto ####[place] [address] UA Squepi Cells Quant <1 Normal 0-29 [facility] Comment on above: Performed By: #### . Urinalysis Microscopic Auto ####[place] [address] UA WBC Quant 2 /HPF Normal 0-5 [facility] Comment on above: Performed By: #### . Urinalysis Microscopic Auto ####[place] [address] .eGFRon 05-30-2024 GFR/1.73 sq M.predicted MDRD (S/P/Bld) [Vol rate/Area] mL/min/{1.73_m2} Normal >=60 [facility] Comment on above: Result Comment: [facility] Laboratories have implemented the eGFR calculation approach [...] = years Performed By: #### E GFR ####[place] [address] CBCon 05-30-2024 Erythrocyte distribution width (RBC) [Ratio] 13.5 % Normal 11.6-14.8 [facility] Comment on above: Performed By: #### C BCI ####[place] [address] Hematocrit (Bld) [Volume fraction] 47.2 % Normal 41.0-53.0 [facility] Comment on above: Performed By: #### C BCI ####[place] [address] Hemoglobin (Bld) [Mass/Vol] 15.8 g/dL Normal 13.5-17.5 [facility] Comment on above: Performed By: #### C BCI ####[place] [address] MCH (RBC) [Entitic mass] 30.4 pg Normal 27.0-35.0 [facility] Comment on above: Performed By: #### C BCI ####[place] [id number] MCHC 33.5 % Normal 31.0-37.0 [facility] Comment on above: Performed By: #### C BCI ####[place] [id number] MCV (RBC) [Entitic vol] 90.9 fL Normal 80.0-100.0 [facility] Comment on above: Performed By: #### C BCI ####[address] [address] Platelet 253 x10*3/mcL Normal 150-450 [facility] Comment on above: Performed By: #### C BCI ####[address] [address] Platelet mean volume (Bld) [Entitic vol] 7.4 fL Normal 6.7-10.6 [facility] Comment on above: Performed By: #### C BCI ####[address] [address] RBC 5.20 x10*6/mcL Normal 4.30-5.80 [facility] Comment on above: Performed By: #### C BCI ####[address] [address] WBC 7.4 x10*3/mcL Normal 4.5-11.0 [facility] Comment on above: Performed By: #### C BCI ####[address] [address] CMPon 05-30-2024 Albumin [Mass/Vol] 3.9 g/dL Normal 3.2-4.9 [facility] Comment on above: Performed By: #### C OMP ####[address] [address] Albumin/Globulin [Mass ratio] 1.3 {ratio} Normal 1.1-2.2 [facility] Comment on above: Performed By: #### C OMP ####[address] [address] Alk Phos 48 IU/L Normal 32-91 [facility] Comment on above: Performed By: #### C OMP ####[address] [address] ALT [Catalytic activity/Vol] 40 U/L Normal 17-63 [facility] Comment on above: Performed By: #### C OMP ####[address] [place] [address] Anion gap [Moles/Vol] 8 mmol/L Normal 4-12 [facility] Comment on above: Performed By: #### C OMP ####[address] [address] AST [Catalytic activity/Vol] 28 U/L Normal 15-41 [facility] Comment on above: Performed By: #### C OMP ####[address] [address] Bili Total 1.0 mg/dL Normal 0.3-1.2 [facility] Comment on above: Performed By: #### C OMP ####[address] [address] Calcium [Mass/Vol] 9.0 mg/dL Normal 8.5-10.3 [facility] Comment on above: Performed By: #### C OMP ####[address] [address] Chloride [Moles/Vol] 105 mmol/L Normal 98-110 [facility] Comment on above: Performed By: #### C OMP ####[address] [address] CO2 [Moles/Vol] 23 mmol/L Normal 22-32 [facility] Comment on above: Performed By: #### C OMP ####[address] [address] Creatinine [Mass/Vol] 0.89 mg/dL Normal 0.61-1.24 [facility] Comment on above: Performed By: #### C OMP ####[address] [address] Glucose [Mass/Vol] 117 mg/dL High 70-99 [facility] Comment on above: Performed By: #### C OMP ####[address] [address] Potassium [Moles/Vol] 3.4 mmol/L Normal 3.4-4.8 [facility] Comment on above: Performed By: #### C OMP ####[address] [address] Protein [Mass/Vol] 7.0 g/dL Normal 6.5-8.1 [facility] Comment on above: Performed By: #### C OMP ####[address] [address] Sodium [Moles/Vol] 136 mmol/L Normal 133-142 [facility] Comment on above: Performed By: #### C OMP ####[address] [address] Urea nitrogen [Mass/Vol] 10 mg/dL Normal 8-26 [facility] Comment on above: Performed By: #### C OMP ####[address] [address] Urea nitrogen/Creatinine [Mass ratio] 11.2 mg/mg Normal 10.0-20.0 [facility] Comment on above: Performed By: #### C OMP ####[address] [address] ED Note-Physicianon 05-30-20 24 ED Note-Physician Normal [facility] Ethanolon 05-30-2024 Ethanol, Plasma <10 Normal <=9 [facility] Comment on above: Result Comment: To c onvert mg/dL to g/dL, divide result by 1,000. Legal limit of intoxication is 80 mg/dL (0.08 g/dL). Performed By: #### A LC ####[address] [address] Fentanyl Scn without Confirm , Uron 05-30-2024 Ur Fentanyl Scrn Negative Normal NEG <1.0 [facility] Comment on above: Performed By: #### C [id number] ####[address] [address] Ur Fentanyl Scrn Qnt 0.34 ng/mL Normal <=0.99 [facility] Comment on above: Performed By: #### C [id number] ####[address] [place] [address] UA w Culture if Indon 2023 Color (U) Yellow Normal Yellow [facility] Comment on above: Performed By: #### U CI ####[address] [place] [address] Ketones Ql (U) Negative Normal Negative [facility] Comment on above: Performed By: #### U CI ####[address] [place] [address] UA Blood Negative Normal Negative [facility] Comment on above: Performed By: #### U CI ####[address] [place] [address] UA Clarity Clear Normal Clear [facility] Comment on above: Performed By: #### U CI ####[address] [place] [address] UA Glucose Normal Normal Negative [facility] Comment on above: Performed By: #### U CI ####[address] [place] [address] UA Leukocyte Esterase Negative Normal Negative [facility] Comment on above: Performed By: #### U CI ####[address] [place] [address] UA Nitrite Negative Normal Negative [facility] Comment on above: Performed By: #### U CI ####[address] [place] [address] UA pH 5.5 Normal 4.5 - 7.8 [facility] Comment on above: Performed By: #### U CI ####[address] [place] [address] UA Protein Negative Normal Negative [facility] Comment on above: Performed By: #### U CI ####[address] [place] [address] UA Source Clean Catch Normal [facility] Comment on above: Performed By: #### U CI ####[address] [place] [address] UA Spec Grav 1.023 Normal 1.003-1.035 [facility] Comment on above: Performed By: #### U CI ####[address] [address] UA Urobilinogen Normal Normal 0.2 - 1.0 [facility] Comment on above: Performed By: #### U CI ####[place] [id number] Urobilinogen (U) [Mass/Vol] Negative Normal Negative [facility] Comment on above: Performed By: #### U CI ####[place] [id number] UDS Compon 05-30-2024 Creatinine [Mass/Vol] 241.1 mg/dL Normal Bl [facility] Comment on above: Performed By: #### C [id number] ####[place] [id number] Ur Amph Scrn Positive Abnormal NEG = <1000 [facility] Comment on above: Result Comment: This unconfirmed positive screening result is to be used for medical treatment purposes only. Unconfirmed screening results must not be used for non-medical purposes (e.g. employment testing, legal testing). Performed By: #### C [id number] ####[address] [address] Ur Yenifer Scrn Negative Normal NEG = <200 [facility] Comment on above: Performed By: #### C [id number] ####[address] [address] Ur Benzodia Scrn Positive Abnormal NEG = <200 [facility] Comment on above: Result Comment: This unconfirmed positive screening result is to be used for medical treatment purposes only. Unconfirmed screening results must not be used for non-medical purposes (e.g. employment testing, legal testing). Performed By: #### C [id number] ####[address] [address] Ur Cannab Scrn Positive Abnormal NEG = <50 [facility] Comment on above: Result Comment: This unconfirmed positive screening result is to be used for medical treatment purposes only. Unconfirmed screening results must not be used for non-medical purposes (e.g. employment testing, legal testing). Performed By: #### C [id number] ####[address] [address] Ur Cocaine Scrn Negative Normal NEG = <300 [facility] Comment on above: Performed By: #### C [id number] ####[address] [address] Ur Methadone Scn Negative Normal NEG = <300 [facility] Comment on above: Performed By: #### C [id number] ####[address] [address] Ur Opiate Scrn Negative Normal NEG = <300 [facility] Comment on above: Performed By: #### C [id number] ####[address] [address] Ur Oxy Screen Negative Normal NEG = <100 [facility] Comment on above: Performed By: #### C [id number] ####[address] [address] Ur Oxy Scrn Qnt 3 ng/mL Normal <=99 [facility] Comment on above: Performed By: #### C [id number] ####[address] [address] Ur PCP Scrn Negative Normal NEG = <25 [facility] Comment on above: Performed By: #### C [id number] ####[address] [address] UA pH 5.5 Normal 4.5 - 7.8 [facility] Comment on above: Performed By: #### C [id number] ####[address] [address] UA Spec Grav 1.023 Normal 1.003-1.035 [facility] Comment on above: Performed By: #### C [id number] ####[facility] [place] [address] Alanine aminotransferase [En zymatic activity/volume] in Serum or PlasmaOrdered By: Parish Hay on 05-03-2024 ALT [Catalytic activity/Vol] 25 U/L Normal 7-52 [facility] Comment on above: Performed By: #### E SYLVIA BUTT, CBC #### [facility] [address] [place] [address] [place] Albumin [Mass/volume] in Ser um or Plasma by Bromocresol green (BCG) dye binding methoOrdered By: Parish Hay on 05-03-2024 Albumin BCG dye [Mass/Vol] 3.8 g/dL 3.5-5.7 [facility] Alkaline phosphatase [Enzyma tic activity/volume] in Serum or PlasmaOrdered By: Parish Hay on 05-03-2024 ALP [Catalytic activity/Vol] 45 U/L Normal 34-104 [facility] Comment on above: Performed By: #### E SYLVIA BUTT, CBC #### [facility] [address] Amphetamine Screen Ql (U)Ord ered By: Parish Hay on 05-03-2024 Amphetamines Ql (U) Positive High Negative [facility] Aspartate aminotransferase [ Enzymatic activity/volume] in Serum or PlasmaOrdered By: Parish Hay on 05-03-2024 AST [Catalytic activity/Vol] 21 U/L Normal 13-39 [facility] Comment on above: Performed By: #### E DAQUAN CMP, CBC #### [facility] [address] [place] [id number] [place] Automated basophil %Ordered By: Parish Hay on 05-03-2024 Basophils/100 WBC (Bld) 0.4 % Normal . [facility] Comment on above: Performed By: #### E DAQUAN CMP, CBC #### [facility] [address] [place] [address] [place] Automated basophil countOrde red By: Parish Hay on 05-03-2024 Basophils (Bld) [#/Vol] 0.0 10*3/uL Normal 0.0-0.2 [facility] Comment on above: Result Comment: PERF ORMED BY: [place] [address] PATHOLOGIST [employer]IST ELSY PASCUAL M.D. Performed By: #### E DAQUAN CMP, CBC #### [address] Automated blood monocyte cou ntOrdered By: Parish Hay on 05-03-2024 Monocytes (Bld) [#/Vol] 0.6 10*3/uL Normal 0.0-0.8 [facility] Comment on above: Performed By: #### E DAQUAN, CMP, CBC #### [address] Automated eosinophil %Ordere d By: Parish Hay on 05-03-2024 Eosinophils/100 WBC (Bld) 6.6 % Normal . [facility] Comment on above: Performed By: #### E DAQUAN CMP, CBC #### [address] Automated eosinophil countOr dered By: Parish Hay on 05-03-2024 Eosinophils (Bld) [#/Vol] 0.4 10*3/uL Normal 0.0-0.45 [facility] Comment on above: Performed By: #### E DAQUAN, CMP, CBC #### [address] Automated monocyte %Ordered By: Parish Hay on 05-03-2024 Monocytes/100 WBC (Bld) 9.9 % Normal . [facility] Comment on above: Performed By: #### E DAQUAN, CMP, CBC #### [address] Automated neutrophil %Ordere d By: Parish Hay on 05-03-2024 Neutrophils/100 WBC (Bld) 48.2 % Normal . [facility] Comment on above: Performed By: #### E DAQUAN CMP, CBC #### [facility] [address] [place] [id number] [place] Barbiturates [Presence] in U rine by Screen methodOrdered By: Parish Hay on 05-03-2024 Barbiturates Screen Ql (U) Negative Negative [facility] Benzodiazepines Screen Ql (U )Ordered By: Parish Hay on 05-03-2024 Benzodiazepines Ql (U) Negative Negative [facility] Benzoylecgonine [Presence] i n Urine by Screen methodOrdered By: Parish Hay on 05-03-2024 Benzoylecgonine Screen Ql (U) Negative Negative [facility] Bilirubin Test strip Ql (U)O rdered By: Parish Hay on 05-03-2024 Bilirubin Ql (U) Negative Negative [facility] Bilirubin.total [Mass/volume ] in Serum or PlasmaOrdered By: Parish Hay on 05-03-2024 Bilirubin [Mass/Vol] 0.7 mg/dL Normal 0.3-1.0 [facility] Comment on above: Performed By: #### E SYLVIA BUTT, CBC #### [facility] [address] [place] [id number] [facility] Calcium [Mass/volume] in Ser um or PlasmaOrdered By: Parish Hay on 05-03-2024 Calcium [Mass/Vol] 9.1 mg/dL Normal 8.6-10.3 [facility] Comment on above: Performed By: #### E SYLVIA BUTT, CBC #### [facility] [address] [place] [id number] [place] Cannabinoids [Presence] in U rine by Screen methodOrdered By: Parish Hay on 05-03-2024 Cannabinoids Screen Ql (U) Positive High Negative [facility] Comment on above: These are unconfirme d results and should not be used for legal purposes. Drug Cut-Off Concentration: AMPH 1000 ng/mL YENIFER 200 ng/mL ROLF 200 ng/mL COCM 300 ng/mL OP 300 ng/mL PCP 25 ng/mL THC 20 ng/mL Carbon dioxide, total [Moles /volume] in Serum or PlasmaOrdered By: Parish Hay on 05-03-2024 CO2 [Moles/Vol] 23.8 mmol/L Normal 21.0-31.0 [facility] Comment on above: Performed By: #### E DAQUAN, CMP, CBC #### [address] Chloride [Moles/volume] in S yolis or PlasmaOrdered By: Parish Hay on 05-03-2024 Chloride [Moles/Vol] 109 mmol/L High 98-107 [facility] Comment on above: Performed By: #### E DAQUAN, CMP, CBC #### [address] Color of Urine by AutoOrdere d By: Parish Hay on 05-03-2024 Color (U) Yellow Normal Yellow [facility] Comment on above: Order Comment: Name Collection Type:: Clean-Voided Midstream Performed By: #### U RDS, UA #### [address] Complete Blood Count Auto Di ffon 05-03-2024 Mean Corpuscular HGB Conc 33.8 g/dL Normal 32.5-35.6 [facility] Comment on above: Performed By: #### E DAQUAN, CMP, CBC #### [place] [address] [place] Monocytes/100 WBC (Bld) 16.24 % Normal 0.00-20.00 [facility] Comment on above: Performed By: #### E DAQUAN, CMP, CBC #### [place] [address] [place] NRBC% 0.1 /100{WBC} Normal 0-0.5 [facility] Comment on above: Performed By: #### E DAQUAN, CMP, CBC #### [address] Comprehensive Metabolic Pane per 05-03-2024 Albumin [Mass/Vol] 3.8 g/dL Normal 3.5-5.7 [facility] Comment on above: Performed By: #### E DAQUAN, CMP, CBC #### [place] [address] [place] Creatinine Clr Calc Pharmacy 181.95 Normal [facility] Comment on above: Result Comment: PERF ORMED BY: [place] [address] PATHOLOGIST [employer]IST ELSY PASCUAL M.D. Performed By: #### E SYLVIA BUTT, CBC #### [address] GFR/1.73 sq M.predicted MDRD (S/P/Bld) [Vol rate/Area] mL/min/{1.73_m2} Normal [facility] Comment on above: Performed By: #### E SYLVIA BUTT, CBC #### [address] Creatinine [Mass/volume] in Serum or PlasmaOrdered By: Parish Hay on 05-03-2024 Creatinine [Mass/Vol] 0.74 mg/dL Normal 0.70-1.30 [facility] Comment on above: Performed By: #### E SYLVIA BUTT, CBC #### [place] [address] [place] Drug Screen,Urineon 05-03-20 24 Amphetamine Screen,Urine Positive High Negative [facility] Comment on above: Performed By: #### U RDS, UA #### [address] Barbiturate Screen,Urine Negative Normal Negative [facility] Comment on above: Performed By: #### U RDS, UA #### [place] [address] [place] Benzodiazepines Screen,Urine Negative Normal Negative [facility] Comment on above: Performed By: #### U RDS, UA #### [place] [address] [place] Cannabinoid Screen,Urine Positive High Negative [facility] Comment on above: Result Comment: Thes e are unconfirmed results and should not be used for legal purposes. Drug Cut-Off Concentration: AMPH 1000 ng/mL YENIFER 200 ng/mL ROLF 200 ng/mL COCM 300 ng/mL OP 300 ng/mL PCP 25 ng/mL THC 20 ng/mL PERFORMED BY: [place] [address] PATHOLOGIST [employer]IST ELSY PASCUAL M.D. Performed By: #### U RDS, UA #### [address] Cocaine Screen,Urine Negative Normal Negative [facility] Comment on above: Performed By: #### U RDS, UA #### [address] Opiate Screen,Urine Negative Normal Negative [facility] Comment on above: Performed By: #### U RDS, UA #### [address] Phencyclidine Screen,Urine Negative Normal Negative [facility] Comment on above: Performed By: #### U RDS, UA #### [address] Erythrocyte distribution wid th [Ratio] by Automated countOrdered By: Parish Hay on 05-03-2024 Erythrocyte distribution width (RBC) [Ratio] 13.9 % Normal 12.0-14.8 [facility] Comment on above: Performed By: #### E SYLVIA BUTT, CBC #### [address] Erythrocytes [#/volume] in B lood by Automated countOrdered By: Parish Hay on 05-03-2024 RBC (Bld) [#/Vol] 5.06 10*6/uL Normal 3.90-5.60 [facility] Comment on above: Performed By: #### E DAQUAN CMP, CBC #### [place] [address] [place] Ethanol [Mass/volume] in Ser um or PlasmaOrdered By: Parish Hay on 05-03-2024 Ethanol [Mass/Vol] mg/dL Normal [facility] Comment on above: Performed By: #### E DAQUAN CMP, CBC #### [place] [address] [place] Ethanol [Mass/Vol] TNP [facility] Comment on above: Test not performed Ethyl Alcohol Profileon Percent Ethanol Not performed Normal [facility] Comment on above: Result Comment: PERF ORMED BY: [facility] [address] [place] [address] PATHOLOGIST [employer] RE[employer] SPECIALIST ELSY PASCUAL M.D. Performed By: #### E DAQUAN, CMP, CBC #### [facility] [address] [place] [id number] [place] Glucose [Mass/volume] in Ser um or PlasmaOrdered By: Parish Hay on 05-03-2024 Glucose [Mass/Vol] 109 mg/dL High 70-100 [facility] Comment on above: ADA recommended refe rence rangeRandom Glucose Reference Range is dependent on time and content of last meal. Glucose of more than 200 mg/dL in a nonstressed, ambulatory subject supports the diagnosis of Diabetes Mellitus. Result Comment: [place] om Glucose Reference Range is dependent on time and content of last meal. Glucose of more than 200 mg/dL in a nonstressed, ambulatory subject supports the diagnosis of Diabetes Mellitus. ADA recommended reference range Performed By: #### E DAQUAN, CMP, CBC #### [facility] [address] [place] [id number] [place] Glucose [Mass/volume] in Uri ne by Test stripOrdered By: Parish Hay on 05-03-2024 Glucose Test strip (U) [Mass/Vol] Normal mg/dL Normal [facility] Hematocrit [Volume Fraction] of Blood by Automated countOrdered By: Parish Hay on 05-03-2024 Hematocrit (Bld) [Volume fraction] 46.3 % Normal 38.8-50.0 [facility] Comment on above: Performed By: #### E DAQUAN, CMP, CBC #### [facility] [address] [place] [id number] [place] Hemoglobin Test strip Ql (U) Ordered By: Parish Hay on 05-03-2024 Hemoglobin Ql (U) Negative Negative [facility] Hemoglobin [Mass/volume] in BloodOrdered By: Parish Hay on 05-03-2024 Hemoglobin (Bld) [Mass/Vol] 15.6 g/dL Normal 13.0-17.0 [facility] Comment on above: Performed By: #### E DAQUAN, CMP, CBC #### [facility] [address] [place] [address] [place] Ketones [Presence] in Urine by Test stripOrdered By: Parish Hay on 05-03-2024 Ketones Ql (U) Negative Normal Negative [facility] Comment on above: Order Comment: Name Collection Type:: Clean-Voided Midstream Performed By: #### U RDS, UA #### [facility] [address] [place] [address] [place] Leukocyte esterase [Presence ] in Urine by Test stripOrdered By: Parish Hay on 05-03-2024 Leukocyte esterase Test strip Ql (U) Negative Normal Negative [facility] Comment on above: Order Comment: Name Collection Type:: Clean-Voided Midstream Performed By: #### U RDS, UA #### [place] [address] [place] Leukocytes [#/volume] correc sherri for nucleated erythrocytes in Blood by Automated counOrdered By: Parish Hay on 05-03-2024 WBC corrected for nucl RBC Auto (Bld) [#/Vol] 6.3 10*3/uL 4.1-10.5 [facility] Leukocytes [#/volume] in Blo od by Automated countOrdered By: Parish Hay on 05-03-2024 WBC (Bld) [#/Vol] 6.3 10*3/uL Normal 4.1-10.5 [facility] Comment on above: Performed By: #### E DAQUAN CMP, CBC #### [facility] [address] [place] [address] [place] Lymphocytes [#/volume] in Bl ood by Automated countOrdered By: Parish Hay on 05-03-2024 Lymphocytes (Bld) [#/Vol] 2.2 10*3/uL Normal 1.00-4.8 [facility] Comment on above: Performed By: #### E DAQUAN, CMP, CBC #### [facility] [address] [place] [address] [place] Lymphocytes/100 leukocytes i n Blood by Automated countOrdered By: Parish Hay on 05-03-2024 Lymphocytes/100 WBC (Bld) 34.9 % Normal . [facility] Comment on above: Performed By: #### E SYLVIA BUTT, CBC #### [facility] [address] MCH [Entitic mass] by Automa sherri countOrdered By: Parish Hay on 05-03-2024 MCH (RBC) [Entitic mass] 30.9 pg Normal 27.5-35.2 [facility] Comment on above: Performed By: #### E SYLVIA BUTT, CBC #### [facility] [address] MCHC Auto (RBC) [Mass/Vol]Or dered By: Parish Hay on 05-03-2024 MCHC (RBC) [Mass/Vol] 33.8 g/dL 32.5-35.6 [facility] MCV [Entitic volume] by Auto mated countOrdered By: Parish Hay on 05-03-2024 MCV (RBC) [Entitic vol] 91.6 fL Normal 83.5-101 [facility] Comment on above: Performed By: #### E SYLVIA BUTT, CBC #### [facility] [address] Monocyte distribution width [Entitic volume] in Blood by AutomatedOrdered By: Parish Hay on 05-03-2024 Monocyte distribution width Auto (Bld) [Entitic vol] 16.24 % 0.00-20.00 [facility] Neutrophils [#/volume] in Bl ood by Automated countOrdered By: Parish Hay on 05-03-2024 Neutrophils (Bld) [#/Vol] 3.0 10*3/uL Normal 1.8-7.7 [facility] Comment on above: Performed By: #### E SYLVIA BUTT, CBC #### [facility] [address] [place] [address] Nitrite Test strip Ql (U)Ord ered By: Parish Hay on 05-03-2024 Nitrite Ql (U) Negative Negative [facility] No Panel InformationOrdered By: Parish Hay on 05-03-2024 Estimated GFR (CKD-EPI) > 60.0 mL/Min [facility] Creatinine Clearance (Chem 181.95 [facility] Nucleated erythrocytes [Pres ence] in Blood by Automated countOrdered By: Parish Hay on 05-03-2024 Nucleated RBC Auto Ql (Bld) 0.1 /100{WBC} 0-0.5 [facility] Opiates [Presence] in Urine by Screen methodOrdered By: Parish Hay on 05-03-2024 Opiates Screen Ql (U) Negative Negative [facility] Phencyclidine Screen Ql (U)O rdered By: Parish Hay on 05-03-2024 Phencyclidine Ql (U) Negative Negative [facility] Platelet mean volume [Entiti c volume] in Blood by Automated countOrdered By: Parish Hay on 05-03-2024 Platelet mean volume (Bld) [Entitic vol] 7.6 fL Normal 6.6-10.1 [facility] Comment on above: Performed By: #### E SYLVIA BUTT, CBC #### [facility] [address] Platelets [#/volume] in Bloo d by Automated countOrdered By: Parish Hay on 05-03-2024 Platelets (Bld) [#/Vol] 262 10*3/uL Normal 150-450 [facility] Comment on above: Performed By: #### E SYLVIA BUTT, CBC #### [facility] [address] [place] [address] [place] Potassium [Moles/volume] in Serum or PlasmaOrdered By: Parish Hay on 05-03-2024 Potassium [Moles/Vol] 3.9 mmol/L Normal 3.5-5.1 [facility] Comment on above: Performed By: #### E SYLVIA BUTT, CBC #### [facility] [address] Protein Test strip (U) [Mass /Vol]Ordered By: Parish Hay on 05-03-2024 Protein (U) [Mass/Vol] Negative Negative [facility] Protein [Mass/volume] in Ser um or PlasmaOrdered By: Parish Hay on 05-03-2024 Protein [Mass/Vol] 6.4 g/dL Normal 6.4-8.9 [facility] Comment on above: Performed By: #### E SYLVIA BUTT, CBC #### [address] Serum globulin measurement b y calculation (mass/volume)Ordered By: Parish Hay on 05-03-2024 Globulin (S) [Mass/Vol] 2.6 g/dL [facility] Comment on above: Performed By: #### E SYLVIA BUTT, CBC #### [address] Serum or plasma albumin/glob ulin mass ratioOrdered By: Parish Hay on 05-03-2024 Albumin/Globulin [Mass ratio] 1.5 {ratio} [facility] Comment on above: Performed By: #### E SYLVIA BUTT, CBC #### [address] Serum or plasma anion gap de terminationOrdered By: Parish Hay on 05-03-2024 Anion gap [Moles/Vol] 10.1 mmol/L Normal 6.0-15.0 [facility] Comment on above: Performed By: #### E SYLVIA BUTT, CBC #### [address] Sodium [Moles/volume] in Ser um or PlasmaOrdered By: Parish Hay on 05-03-2024 Sodium [Moles/Vol] 139 mmol/L Normal 136-145 [facility] Comment on above: Performed By: #### E SYLVIA BUTT, CBC #### [address] Specific gravity Test strip (U) [Rel density]Ordered By: Parish Hay on 05-03-2024 Specific gravity (U) [Rel density] 1.030 1.001-1.030 [facility] Urea nitrogen [Mass/volume] in Serum or PlasmaOrdered By: Parish Hay on 05-03-2024 Urea nitrogen [Mass/Vol] 12 mg/dL Normal 7-25 [facility] Comment on above: Performed By: #### E DAQUAN, CMP, CBC #### [address] Urinalysison 05-03-2024 Bilirubin,Urine Negative Normal Negative [facility] Comment on above: Order Comment: Name Collection Type:: Clean-Voided Midstream Performed By: #### U RDS, UA #### [address] Glucose Ql (U) Normal Normal Normal [facility] Comment on above: Order Comment: Name Collection Type:: Clean-Voided Midstream Performed By: #### U RDS, UA #### [place] [address] [place] Nitrite,Urine Negative Normal Negative [facility] Comment on above: Order Comment: Name Collection Type:: Clean-Voided Midstream Performed By: #### U RDS, UA #### [address] Occult Blood,Urine Negative Normal Negative [facility] Comment on above: Order Comment: Name Collection Type:: Clean-Voided Midstream Result Comment: PERF ORMED BY: [place] [address] PATHOLOGIST [employer] RECLAMATION SPECIALIST ELSY PASCUAL M.D. Performed By: #### U RDS, UA #### [place] [address] [place] Protein,Urine Negative Normal Negative [facility] Comment on above: Order Comment: Name Collection Type:: Clean-Voided Midstream Performed By: #### U RDS, UA #### [place] [address] [place] Specificy [place],Urine 1.030 Normal 1.001-1.030 [facility] Comment on above: Order Comment: Name Collection Type:: Clean-Voided Midstream Performed By: #### U RDS, UA #### [address] Urobilinogen,Urine Normal Normal Normal [facility] Comment on above: Order Comment: Name Collection Type:: Clean-Voided Midstream Performed By: #### U RDS, UA #### [facility] [address] Urine appearanceOrdered By: Parish Hay on 05-03-2024 Appearance (U) Clear Normal Clear [facility] Comment on above: Order Comment: Name Collection Type:: Clean-Voided Midstream Performed By: #### U RDS, UA #### [facility] [address] [place] [address] Urobilinogen Test strip (U) [Mass/Vol]Ordered By: Parish Hay on 05-03-2024 Urobilinogen (U) [Mass/Vol] Normal mg/dL Normal [facility] pH of Urine by Test stripOrd ered By: Parish Hay on 05-03-2024 pH (U) 5.5 [pH] Normal 5.0-9.0 [facility] Comment on above: Order Comment: Name Collection Type:: Clean-Voided Midstream Performed By: #### U RDS, UA #### [place] [id number] [facility] Ur Amph Conf-[place]on 04-16-20 24 Ur Amphetamines Interp-[place] Positive Normal [facility] Comment on above: Result Comment: ---- ADDITIONAL INFORMATION This report is intended for use in clinical monitoring andmanagement of patients. It is not intended for use inemployment-related testing.This test was developed and its performance characteristicsdetermined by [facility] in a manner consistent with CLIArequirements. This test has not been cleared or approved bythe U.S. Food and Drug Administration.Test Performed by:[place] [id number] Director: Alba Ahmadi Ph.D.; CLIA# [id number] Performed By: #### Domenic [id number] ####[facility] [id number] [place] [address] Ur Amphetamines-[place] 132 ng/mL Normal Cutoff: 25 [facility] Comment on above: Performed By: #### C [id number] ####[facility] [id number] [place] [address] Ur Ephedrine&Pseudo-Armstrong Negative Normal Cutoff: 25 [facility] Comment on above: Performed By: #### C [id number] ####[facility] [id number] [place] [address] Ur MDA (Ecstasy Metab)-[place] Negative Normal Cutoff: 25 [facility] Comment on above: Performed By: #### C [id number] ####[facility] [id number] [place] [address] Ur MDMA (Ecstasy)-[place] Negative Normal Cutoff: 25 [facility] Comment on above: Performed By: #### C [id number] ####[facility] [id number] [place] [address] Ur Methamphet-[place] 1316 ng/mL Normal Cutoff: 25 [facility] Comment on above: Performed By: #### C [id number] ####[facility] [id number] [place] [address] Ur Phentermine-[place] Negative Normal Cutoff: 25 [facility] Comment on above: Performed By: #### C D:[id number] ####[facility] [id number] [place] [address] C Woundon 04-10-2024 C Wound Normal [facility] Comment on above: Performed By: #### W DC ####[facility] (DEFAULT)[address] [place], [place] [address] [place] [address] .eGFRon 04-09-2024 GFR/1.73 sq M.predicted MDRD (S/P/Bld) [Vol rate/Area] mL/min/{1.73_m2} Normal >=60 [facility] Comment on above: Result Comment: [facility] Laboratories have implemented the eGFR calculation approach [...] = years Performed By: #### E GFR ####[place] [address] CBC w/ Diffon 04-09-2024 Erythrocyte distribution width (RBC) [Ratio] 13.4 % Normal 11.6-14.8 [facility] Comment on above: Performed By: #### C BC ####[place] [id number] Hematocrit (Bld) [Volume fraction] 44.1 % Normal 41.0-53.0 [facility] Comment on above: Performed By: #### C BC ####[place] [id number] Hemoglobin (Bld) [Mass/Vol] 14.6 g/dL Normal 13.5-17.5 [facility] Comment on above: Performed By: #### C BC ####[address] [address] MCH (RBC) [Entitic mass] 30.2 pg Normal 27.0-35.0 [facility] Comment on above: Performed By: #### C BC ####[place] [id number] MCHC 33.0 % Normal 31.0-37.0 [facility] Comment on above: Performed By: #### C BC ####[address] [address] MCV (RBC) [Entitic vol] 91.5 fL Normal 80.0-100.0 [facility] Comment on above: Performed By: #### C BC ####[address] [address] Platelet 244 x10*3/mcL Normal 150-450 [facility] Comment on above: Performed By: #### C BC ####[address] [address] Platelet mean volume (Bld) [Entitic vol] 7.2 fL Normal 6.7-10.6 [facility] Comment on above: Performed By: #### C BC ####[address] [address] RBC 4.82 x10*6/mcL Normal 4.30-5.80 [facility] Comment on above: Performed By: #### C BC ####[address] [address] WBC 7.7 x10*3/mcL Normal 4.5-11.0 [facility] Comment on above: Performed By: #### C BC ####[address] [address] CMPon 04-09-2024 Albumin [Mass/Vol] 2.9 g/dL Low 3.2-4.9 [facility] Comment on above: Performed By: #### C OMP ####[address] [address] Albumin/Globulin [Mass ratio] 1.0 {ratio} Low 1.1-2.2 [facility] Comment on above: Performed By: #### C OMP ####[address] [address] Alk Phos 40 IU/L Normal 32-91 [facility] Comment on above: Performed By: #### C OMP ####[address] [address] ALT [Catalytic activity/Vol] 33 U/L Normal 17-63 [facility] Comment on above: Performed By: #### C OMP ####[address] [address] Anion gap [Moles/Vol] 7 mmol/L Normal 4-12 [facility] Comment on above: Performed By: #### C OMP ####[address] [address] AST [Catalytic activity/Vol] 20 U/L Normal 15-41 [facility] Comment on above: Performed By: #### C OMP ####[address] [address] Bili Total 0.4 mg/dL Normal 0.3-1.2 [facility] Comment on above: Performed By: #### C OMP ####[address] [address] Calcium [Mass/Vol] 8.4 mg/dL Low 8.5-10.3 [facility] Comment on above: Performed By: #### C OMP ####[address] [address] Chloride [Moles/Vol] 106 mmol/L Normal 98-110 [facility] Comment on above: Performed By: #### C OMP ####[address] [address] CO2 [Moles/Vol] 25 mmol/L Normal 22-32 [facility] Comment on above: Performed By: #### C OMP ####[address] [place] [address] Creatinine [Mass/Vol] 0.89 mg/dL Normal 0.61-1.24 [facility] Comment on above: Performed By: #### C OMP ####[address] [address] Glucose [Mass/Vol] 94 mg/dL Normal 70-99 [facility] Comment on above: Performed By: #### C OMP ####[address] [address] Potassium [Moles/Vol] 4.2 mmol/L Normal 3.4-4.8 [facility] Comment on above: Performed By: #### C OMP ####[address] [address] Protein [Mass/Vol] 5.9 g/dL Low 6.5-8.1 [facility] Comment on above: Performed By: #### C OMP ####[address] [address] Sodium [Moles/Vol] 138 mmol/L Normal 133-142 [facility] Comment on above: Performed By: #### C OMP ####[address] [address] Urea nitrogen [Mass/Vol] 19 mg/dL Normal 8-26 [facility] Comment on above: Performed By: #### C OMP ####[address] [address] Urea nitrogen/Creatinine [Mass ratio] 21.3 mg/mg High 10.0-20.0 [facility] Comment on above: Performed By: #### C OMP ####[address] [address] Diff Autoon 04-09-2024 Baso Absolute 0.1 x10*3/mcL Normal 0.0-0.2 [facility] Comment on above: Performed By: #### . Automated Diff ####[address] [address] Basophils/100 WBC (Bld) 1.0 % Normal 0.0-1.2 [facility] Comment on above: Performed By: #### . Automated Diff ####[address] [address] Eos Absolute 0.4 x10*3/mcL Normal 0.0-0.4 [facility] Comment on above: Performed By: #### . Automated Diff ####[address] [address] Eosinophils/100 WBC (Bld) 4.8 % Normal 0.0-6.1 [facility] Comment on above: Performed By: #### . Automated Diff ####[address] [address] Lymph Absolute 2.5 x10*3/mcL Normal 1.0-4.8 [facility] Comment on above: Performed By: #### . Automated Diff ####[address] [address] Lymphocytes/100 WBC (Bld) 32.1 % Normal 27.2-40.8 [facility] Comment on above: Performed By: #### . Automated Diff ####[place] [id number] [place] Absolute 0.7 x10*3/mcL Normal 0.3-1.1 [facility] Comment on above: Performed By: #### . Automated Diff ####[address] [address] Monocytes/100 WBC (Bld) 9.6 % Normal 4.7-13.9 [facility] Comment on above: Performed By: #### . Automated Diff ####[address] [address] Neutro Absolute 4.1 x10*3/mcL Normal 1.8-7.7 [facility] Comment on above: Performed By: #### . Automated Diff ####[place] [id number] Neutro Auto 52.5 % Normal 47.2-70.8 [facility] Comment on above: Performed By: #### . Automated Diff ####[place] [id number] Inpatient Clinical Summaryon 04-09-2024 Inpatient Clinical Summary Normal [facility] Magnesiumon 04-09-2024 Magnesium [Mass/Vol] 2.1 mg/dL Normal 1.7-2.4 [facility] Comment on above: Performed By: #### M G ####[address] [place] [address] Phosphoruson 04-09-2024 Phosphate [Mass/Vol] 3.8 mg/dL Normal 2.5-4.6 [facility] Comment on above: Performed By: #### P HOS ####[address] [address] Ur Carboxy-THC Conf-[place] 0 04-09-2024 Ur Carboxy-THC Interp-Armstro[place] Positive Normal [facility] Comment on above: Result Comment: ---- ADDITIONAL INFORMATION This report is intended for use in clinical monitoring andmanagement of patients. It is not intended for use inemployment-related testing.This test was developed and its performance characteristicsdetermined by [facility] in a manner consistent with CLIArequirements. This test has not been cleared or approved bythe U.S. Food and Drug Administration.Test Performed by:[place], [place] [address]Lab Director: Alba Ahmadi Ph.D.; CLIA# [id number] Performed By: #### C [id number] ####[facility] [place] [address] Ur Delta-8 Sibnnys-AXE-Gdse 76 ng/mL Normal Cutoff: 5 [facility] Comment on above: Performed By: #### C [id number] ####[facility] [place] [address] Ur Delta-9 Gwrowno-LYD-Oype 134 ng/mL Normal Cutoff: 5 [facility] Comment on above: Performed By: #### C [id number] ####[facility] [place] [address] .eGFRon 04-08-2024 GFR/1.73 sq M.predicted MDRD (S/P/Bld) [Vol rate/Area] mL/min/{1.73_m2} Normal >=60 [facility] Comment on above: Result Comment: [facility] Laboratories have implemented the eGFR calculation approach [...] = years Performed By: #### E GFR ####[place] [address] CBC w/ Diffon 04-08-2024 Erythrocyte distribution width (RBC) [Ratio] 13.4 % Normal 11.6-14.8 [facility] Comment on above: Performed By: #### C BC ####[place] [id number] Hematocrit (Bld) [Volume fraction] 46.0 % Normal 41.0-53.0 [facility] Comment on above: Performed By: #### C BC ####[place] [id number] Hemoglobin (Bld) [Mass/Vol] 15.4 g/dL Normal 13.5-17.5 [facility] Comment on above: Performed By: #### C BC ####[place] [id number] MCH (RBC) [Entitic mass] 30.8 pg Normal 27.0-35.0 [facility] Comment on above: Performed By: #### C BC ####[place] [id number] MCHC 33.4 % Normal 31.0-37.0 [facility] Comment on above: Performed By: #### C BC ####[address] [address] MCV (RBC) [Entitic vol] 92.0 fL Normal 80.0-100.0 [facility] Comment on above: Performed By: #### C BC ####[address] [address] Platelet 252 x10*3/mcL Normal 150-450 [facility] Comment on above: Performed By: #### C BC ####[address] [address] Platelet mean volume (Bld) [Entitic vol] 7.7 fL Normal 6.7-10.6 [facility] Comment on above: Performed By: #### C BC ####[address] [address] RBC 5.00 x10*6/mcL Normal 4.30-5.80 [facility] Comment on above: Performed By: #### C BC ####[address] [address] WBC 8.0 x10*3/mcL Normal 4.5-11.0 [facility] Comment on above: Performed By: #### C BC ####[address] [address] CMPon 04-08-2024 Albumin [Mass/Vol] 3.1 g/dL Low 3.2-4.9 [facility] Comment on above: Performed By: #### C OMP ####[address] [address] Albumin/Globulin [Mass ratio] 1.0 {ratio} Low 1.1-2.2 [facility] Comment on above: Performed By: #### C OMP ####[address] [address] Alk Phos 43 IU/L Normal 32-91 [facility] Comment on above: Performed By: #### C OMP ####[address] [address] ALT [Catalytic activity/Vol] 41 U/L Normal 17-63 [facility] Comment on above: Performed By: #### C OMP ####[address] [address] Anion gap [Moles/Vol] 6 mmol/L Normal 4-12 [facility] Comment on above: Performed By: #### C OMP ####[address] [address] AST [Catalytic activity/Vol] 23 U/L Normal 15-41 [facility] Comment on above: Performed By: #### C OMP ####[address] [address] Bili Total 0.5 mg/dL Normal 0.3-1.2 [facility] Comment on above: Performed By: #### C OMP ####[address] [address] Calcium [Mass/Vol] 8.4 mg/dL Low 8.5-10.3 [facility] Comment on above: Performed By: #### C OMP ####[address] [address] Chloride [Moles/Vol] 106 mmol/L Normal 98-110 [facility] Comment on above: Performed By: #### C OMP ####[address] [address] CO2 [Moles/Vol] 25 mmol/L Normal 22-32 [facility] Comment on above: Performed By: #### C OMP ####[address] [address] Creatinine [Mass/Vol] 0.75 mg/dL Normal 0.61-1.24 [facility] Comment on above: Performed By: #### C OMP ####[address] [address] Glucose [Mass/Vol] 98 mg/dL Normal 70-99 [facility] Comment on above: Performed By: #### C OMP ####[address] [address] Potassium [Moles/Vol] 4.0 mmol/L Normal 3.4-4.8 [facility] Comment on above: Performed By: #### C OMP ####[address] [address] Protein [Mass/Vol] 6.2 g/dL Low 6.5-8.1 [facility] Comment on above: Performed By: #### C OMP ####[address] [address] Sodium [Moles/Vol] 137 mmol/L Normal 133-142 [facility] Comment on above: Performed By: #### C OMP ####[address] [address] Urea nitrogen [Mass/Vol] 16 mg/dL Normal 8-26 [facility] Comment on above: Performed By: #### C OMP ####[address] [address] Urea nitrogen/Creatinine [Mass ratio] 21.3 mg/mg High 10.0-20.0 [facility] Comment on above: Performed By: #### C OMP ####[address] [address] Diff Autoon 04-08-2024 Baso Absolute 0.1 x10*3/mcL Normal 0.0-0.2 [facility] Comment on above: Performed By: #### . Automated Diff ####[address] [address] Basophils/100 WBC (Bld) 1.3 % High 0.0-1.2 [facility] Comment on above: Performed By: #### . Automated Diff ####[address] [address] Eos Absolute 0.2 x10*3/mcL Normal 0.0-0.4 [facility] Comment on above: Performed By: #### . Automated Diff ####[address] [address] Eosinophils/100 WBC (Bld) 2.8 % Normal 0.0-6.1 [facility] Comment on above: Performed By: #### . Automated Diff ####[address] [address] Lymph Absolute 2.5 x10*3/mcL Normal 1.0-4.8 [facility] Comment on above: Performed By: #### . Automated Diff ####[address] [address] Lymphocytes/100 WBC (Bld) 31.7 % Normal 27.2-40.8 [facility] Comment on above: Performed By: #### . Automated Diff ####[address] [address] [place] Absolute 0.7 x10*3/mcL Normal 0.3-1.1 [facility] Comment on above: Performed By: #### . Automated Diff ####[address] [address] Monocytes/100 WBC (Bld) 8.9 % Normal 4.7-13.9 [facility] Comment on above: Performed By: #### . Automated Diff ####[address] [address] Neutro Absolute 4.5 x10*3/mcL Normal 1.8-7.7 [facility] Comment on above: Performed By: #### . Automated Diff ####[address] [address] Neutro Auto 55.3 % Normal 47.2-70.8 [facility] Comment on above: Performed By: #### . Automated Diff ####[address] [address] Magnesiumon 04-08-2024 Magnesium [Mass/Vol] 2.1 mg/dL Normal 1.7-2.4 [facility] Comment on above: Performed By: #### M G ####[address] [address] Phosphoruson 04-08-2024 Phosphate [Mass/Vol] 3.4 mg/dL Normal 2.5-4.6 [facility] Comment on above: Performed By: #### P HOS ####[address] [address] .eGFRon 04-07-2024 GFR/1.73 sq M.predicted MDRD (S/P/Bld) [Vol rate/Area] mL/min/{1.73_m2} Normal >=60 [facility] Comment on above: Result Comment: [facility] Laboratories have implemented the eGFR calculation approach [...] = years Performed By: #### E GFR ####[address] [address] CBC w/ Diffon 04-07-2024 Erythrocyte distribution width (RBC) [Ratio] 13.2 % Normal 11.6-14.8 [facility] Comment on above: Performed By: #### C BC ####[address] [address] Hematocrit (Bld) [Volume fraction] 48.1 % Normal 41.0-53.0 [facility] Comment on above: Performed By: #### C BC ####[address] [address] Hemoglobin (Bld) [Mass/Vol] 15.8 g/dL Normal 13.5-17.5 [facility] Comment on above: Performed By: #### C BC ####[address] [address] MCH (RBC) [Entitic mass] 30.2 pg Normal 27.0-35.0 [facility] Comment on above: Performed By: #### C BC ####[address] [address] MCHC 32.8 % Normal 31.0-37.0 [facility] Comment on above: Performed By: #### C BC ####[address] [address] MCV (RBC) [Entitic vol] 92.1 fL Normal 80.0-100.0 [facility] Comment on above: Performed By: #### C BC ####[address] [address] Platelet 259 x10*3/mcL Normal 150-450 [facility] Comment on above: Performed By: #### C BC ####[address] [address] Platelet mean volume (Bld) [Entitic vol] 7.5 fL Normal 6.7-10.6 [facility] Comment on above: Performed By: #### C BC ####[address] [address] RBC 5.22 x10*6/mcL Normal 4.30-5.80 [facility] Comment on above: Performed By: #### C BC ####[address] [address] WBC 7.6 x10*3/mcL Normal 4.5-11.0 [facility] Comment on above: Performed By: #### C BC ####[address] [place] [address] [place] [address] CMPon 04-07-2024 Albumin [Mass/Vol] 3.2 g/dL Normal 3.2-4.9 [facility] Comment on above: Performed By: #### C OMP ####[address] [address] Albumin/Globulin [Mass ratio] 1.0 {ratio} Low 1.1-2.2 [facility] Comment on above: Performed By: #### C OMP ####[address] [address] Alk Phos 43 IU/L Normal 32-91 [facility] Comment on above: Performed By: #### C OMP ####[address] [address] ALT [Catalytic activity/Vol] 50 U/L Normal 17-63 [facility] Comment on above: Performed By: #### C OMP ####[address] [address] Anion gap [Moles/Vol] 6 mmol/L Normal 4-12 [facility] Comment on above: Performed By: #### C OMP ####[address] [address] AST [Catalytic activity/Vol] 33 U/L Normal 15-41 [facility] Comment on above: Performed By: #### C OMP ####[address] [address] Bili Total 0.8 mg/dL Normal 0.3-1.2 [facility] Comment on above: Performed By: #### C OMP ####[address] [address] Calcium [Mass/Vol] 8.5 mg/dL Normal 8.5-10.3 [facility] Comment on above: Performed By: #### C OMP ####[address] [address] Chloride [Moles/Vol] 106 mmol/L Normal 98-110 [facility] Comment on above: Performed By: #### C OMP ####[address] [address] CO2 [Moles/Vol] 24 mmol/L Normal 22-32 [facility] Comment on above: Performed By: #### C OMP ####[address] [address] Creatinine [Mass/Vol] 0.91 mg/dL Normal 0.61-1.24 [facility] Comment on above: Performed By: #### C OMP ####[address] [address] Glucose [Mass/Vol] 88 mg/dL Normal 70-99 [facility] Comment on above: Performed By: #### C OMP ####[address] [address] Potassium [Moles/Vol] 4.3 mmol/L Normal 3.4-4.8 [facility] Comment on above: Performed By: #### C OMP ####[address] [address] Protein [Mass/Vol] 6.3 g/dL Low 6.5-8.1 [facility] Comment on above: Performed By: #### C OMP ####[address] [address] Sodium [Moles/Vol] 136 mmol/L Normal 133-142 [facility] Comment on above: Performed By: #### C OMP ####[address] [address] Urea nitrogen [Mass/Vol] 18 mg/dL Normal 8-26 [facility] Comment on above: Performed By: #### C OMP ####[address] [address] Urea nitrogen/Creatinine [Mass ratio] 19.8 mg/mg Normal 10.0-20.0 [facility] Comment on above: Performed By: #### C OMP ####[address] [address] Diff Autoon 04-07-2024 Baso Absolute 0.1 x10*3/mcL Normal 0.0-0.2 [facility] Comment on above: Performed By: #### . Automated Diff ####[address] [address] Basophils/100 WBC (Bld) 1.2 % Normal 0.0-1.2 [facility] Comment on above: Performed By: #### . Automated Diff ####[address] [address] Eos Absolute 0.3 x10*3/mcL Normal 0.0-0.4 [facility] Comment on above: Performed By: #### . Automated Diff ####[address] [address] Eosinophils/100 WBC (Bld) 3.4 % Normal 0.0-6.1 [facility] Comment on above: Performed By: #### . Automated Diff ####[address] [address] Lymph Absolute 2.8 x10*3/mcL Normal 1.0-4.8 [facility] Comment on above: Performed By: #### . Automated Diff ####[address] [address] Lymphocytes/100 WBC (Bld) 36.5 % Normal 27.2-40.8 [facility] Comment on above: Performed By: #### . Automated Diff ####[address] [address] [place] Absolute 0.7 x10*3/mcL Normal 0.3-1.1 [facility] Comment on above: Performed By: #### . Automated Diff ####[address] [address] Monocytes/100 WBC (Bld) 9.6 % Normal 4.7-13.9 [facility] Comment on above: Performed By: #### . Automated Diff ####[address] [address] Neutro Absolute 3.7 x10*3/mcL Normal 1.8-7.7 [facility] Comment on above: Performed By: #### . Automated Diff ####[place] [address] Neutro Auto 49.3 % Normal 47.2-70.8 [facility] Comment on above: Performed By: #### . Automated Diff ####[place] [address] Magnesiumon 04-07-2024 Magnesium [Mass/Vol] 2.2 mg/dL Normal 1.7-2.4 [facility] Comment on above: Performed By: #### M G ####[place] [address] Phosphoruson 04-07-2024 Phosphate [Mass/Vol] 4.0 mg/dL Normal 2.5-4.6 [facility] Comment on above: Performed By: #### P HOS ####[place] [address] Progress Note-Nurseon 2023 Progress Note-Nurse Normal [facility] UDS Comp/Con 04-07-2024 Ur Amph Scrn w/Conf Positive Abnormal NEG = <1000 [facility] Comment on above: Result Comment: This unconfirmed positive screening result is to be used for medical treatment purposes only. Confirmation testing will be performed using an alternate method. Performed By: #### C D:[id number] ####[place] [id number] Ur Yenifer Scrn w/Conf Negative Normal NEG = <200 [facility] Comment on above: Performed By: #### C D:[id number] ####[place] [id number] Ur Benzodia Scrn w/Conf Negative Normal NEG = <200 [facility] Comment on above: Performed By: #### C D:[id number] ####[place] [id number] Ur Cannab Scrn w/Conf Positive Abnormal NEG = <50 [facility] Comment on above: Result Comment: This unconfirmed positive screening result is to be used for medical treatment purposes only. Confirmation testing will be performed using an alternate method. Performed By: #### C D:[id number] ####[address] [address] Ur Cocaine Scrn w/Conf Negative Normal NEG = <300 [facility] Comment on above: Performed By: #### C D:[id number] ####[address] [address] Ur Methadone Scrn w/Conf Negative Normal NEG = <300 [facility] Comment on above: Performed By: #### C [id number] ####[address] [address] Ur Opiate Scrn w/Conf Negative Normal NEG = <300 [facility] Comment on above: Performed By: #### C [id number] ####[address] [address] Ur Oxy Screen w/Conf Negative Normal NEG = <100 [facility] Comment on above: Performed By: #### C [id number] ####[address] [address] Ur Oxy Scrn Qnt w/Confirm 0 ng/mL Normal <=99 [facility] Comment on above: Performed By: #### C D:[id number] ####[address] [address] Ur PCP Scrn w/Conf Negative Normal NEG = <25 [facility] Comment on above: Performed By: #### C D:[id number] ####[address] [address] .Fentanyl Scrn with Conf,Uro n 04-06-2024 Ur Fentanyl Scrn w/Confirm Negative Normal NEG <1.0 [facility] Comment on above: Performed By: #### C D:[id number] ####[address] [place] [address] Ur Fentanyl Scrn w/Confirm Qnt 0.11 ng/mL Normal <=0.99 [facility] Comment on above: Performed By: #### C D:[id number] ####[place] [address] .Fentanyl Scrn wo Conf,Uron 04-06-2024 Ur Fentanyl Scrn Negative Normal NEG <1.0 [facility] Comment on above: Performed By: #### C D:[id number] ####[place] [address] Ur Fentanyl Scrn Qnt 0.11 ng/mL Normal <=0.99 [facility] Comment on above: Performed By: #### C D:[id number] ####[place] [address] .UA Microscp Aon 04-06-2024 UA Mucus Present Normal Absent [facility] Comment on above: Performed By: #### . Urinalysis Microscopic Auto ####[place] [address] UA Non Squep Epi <1 Normal [facility] Comment on above: Performed By: #### . Urinalysis Microscopic Auto ####[place] [address] UA RBC Quant 0 /HPF Normal 0-5 [facility] Comment on above: Performed By: #### . Urinalysis Microscopic Auto ####[place] [address] UA WBC Quant 0 /HPF Normal 0-5 [facility] Comment on above: Performed By: #### . Urinalysis Microscopic Auto ####[place] [address] .eGFRon 04-06-2024 GFR/1.73 sq M.predicted MDRD (S/P/Bld) [Vol rate/Area] mL/min/{1.73_m2} Normal >=60 [facility] Comment on above: Result Comment: [facility] Laboratories have implemented the eGFR calculation approach [...] = years Performed By: #### E GFR ####[address] [address] Amylaseon 04-06-2024 Amylase [Catalytic activity/Vol] 62 U/L Normal 28-100 [facility] Comment on above: Performed By: #### A MY ####[address] [address] B12/Folate Lvlon 04-06-2024 Cobalamin (Vitamin B12) [Mass/Vol] 399 pg/mL Normal 180-914 [facility] Comment on above: Performed By: #### B 12FO ####[address] [address] Folate Lvl >22.3 Normal >=5.9 [facility] Comment on above: Result Comment: A [facility] Technical Consultation has determined that deficient Folate concentrations are considered to be less than 4 ng/mL. Performed By: #### B 12FO ####[address] [address] CBC w/ Diffon 04-06-2024 Erythrocyte distribution width (RBC) [Ratio] 13.5 % Normal 11.6-14.8 [facility] Comment on above: Performed By: #### C BC ####[address] [address] Hematocrit (Bld) [Volume fraction] 49.9 % Normal 41.0-53.0 [facility] Comment on above: Performed By: #### C BC ####[address] [address] Hemoglobin (Bld) [Mass/Vol] 16.9 g/dL Normal 13.5-17.5 [facility] Comment on above: Performed By: #### C BC ####[address] [address] MCH (RBC) [Entitic mass] 31.0 pg Normal 27.0-35.0 [facility] Comment on above: Performed By: #### C BC ####[address] [address] MCHC 33.8 % Normal 31.0-37.0 [facility] Comment on above: Performed By: #### C BC ####[address] [address] MCV (RBC) [Entitic vol] 91.5 fL Normal 80.0-100.0 [facility] Comment on above: Performed By: #### C BC ####[address] [address] Platelet 361 x10*3/mcL Normal 150-450 [facility] Comment on above: Performed By: #### C BC ####[address] [address] Platelet mean volume (Bld) [Entitic vol] 7.3 fL Normal 6.7-10.6 [facility] Comment on above: Performed By: #### C BC ####[address] [address] RBC 5.46 x10*6/mcL Normal 4.30-5.80 [facility] Comment on above: Performed By: #### C BC ####[address] [address] WBC 11.0 x10*3/mcL Normal 4.5-11.0 [facility] Comment on above: Performed By: #### C BC ####[address] [address] CMPon 04-06-2024 Albumin [Mass/Vol] 3.8 g/dL Normal 3.2-4.9 [facility] Comment on above: Performed By: #### C OMP ####[address] [address] Albumin/Globulin [Mass ratio] 1.0 {ratio} Low 1.1-2.2 [facility] Comment on above: Performed By: #### C OMP ####[address] [address] Alk Phos 50 IU/L Normal 32-91 [facility] Comment on above: Performed By: #### C OMP ####[address] [address] ALT [Catalytic activity/Vol] 77 U/L High 17-63 [facility] Comment on above: Performed By: #### C OMP ####[address] [address] Anion gap [Moles/Vol] 9 mmol/L Normal 4-12 [facility] Comment on above: Performed By: #### C OMP ####[address] [address] AST [Catalytic activity/Vol] 38 U/L Normal 15-41 [facility] Comment on above: Performed By: #### C OMP ####[address] [address] Bili Total 0.5 mg/dL Normal 0.3-1.2 [facility] Comment on above: Performed By: #### C OMP ####[address] [address] Calcium [Mass/Vol] 8.7 mg/dL Normal 8.5-10.3 [facility] Comment on above: Performed By: #### C OMP ####[address] [address] Chloride [Moles/Vol] 100 mmol/L Normal 98-110 [facility] Comment on above: Performed By: #### C OMP ####[address] [address] CO2 [Moles/Vol] 23 mmol/L Normal 22-32 [facility] Comment on above: Performed By: #### C OMP ####[address] [address] Creatinine [Mass/Vol] 0.79 mg/dL Normal 0.61-1.24 [facility] Comment on above: Performed By: #### C OMP ####[address] [address] Glucose [Mass/Vol] 89 mg/dL Normal 70-99 [facility] Comment on above: Performed By: #### C OMP ####[address] [address] Potassium [Moles/Vol] 4.1 mmol/L Normal 3.4-4.8 [facility] Comment on above: Performed By: #### C OMP ####[address] [address] Protein [Mass/Vol] 7.5 g/dL Normal 6.5-8.1 [facility] Comment on above: Performed By: #### C OMP ####[address] [address] Sodium [Moles/Vol] 132 mmol/L Low 133-142 [facility] Comment on above: Performed By: #### C OMP ####[address] [address] Urea nitrogen [Mass/Vol] 15 mg/dL Normal 8-26 [facility] Comment on above: Performed By: #### C OMP ####[address] [address] Urea nitrogen/Creatinine [Mass ratio] 19.0 mg/mg Normal 10.0-20.0 [facility] Comment on above: Performed By: #### C OMP ####[address] [address] Diff Autoon 04-06-2024 Baso Absolute 0.2 x10*3/mcL Normal 0.0-0.2 [facility] Comment on above: Performed By: #### . Automated Diff ####[address] [address] Basophils/100 WBC (Bld) 1.5 % High 0.0-1.2 [facility] Comment on above: Performed By: #### . Automated Diff ####[address] [address] Eos Absolute 0.2 x10*3/mcL Normal 0.0-0.4 [facility] Comment on above: Performed By: #### . Automated Diff ####[address] [address] Eosinophils/100 WBC (Bld) 2.2 % Normal 0.0-6.1 [facility] Comment on above: Performed By: #### . Automated Diff ####[address] [address] Lymph Absolute 3.1 x10*3/mcL Normal 1.0-4.8 [facility] Comment on above: Performed By: #### . Automated Diff ####[address] [address] Lymphocytes/100 WBC (Bld) 27.9 % Normal 27.2-40.8 [facility] Comment on above: Performed By: #### . Automated Diff ####[address] [address] [place] Absolute 0.9 x10*3/mcL Normal 0.3-1.1 [facility] Comment on above: Performed By: #### . Automated Diff ####[address] [address] Monocytes/100 WBC (Bld) 8.0 % Normal 4.7-13.9 [facility] Comment on above: Performed By: #### . Automated Diff ####[place] [address] Neutro Absolute 6.6 x10*3/mcL Normal 1.8-7.7 [facility] Comment on above: Performed By: #### . Automated Diff ####[place] [address] Neutro Auto 60.4 % Normal 47.2-70.8 [facility] Comment on above: Performed By: #### . Automated Diff ####[place] [address] Dir Indir Bilion 04-06-2024 Bili Direct 0.1 mg/dL Normal 0.1-0.5 [facility] Comment on above: Performed By: #### D /IBILI ####[place] [address] Bili Indirect 0.4 mg/dL Normal 0.0-1.0 [facility] Comment on above: Performed By: #### D /IBILI ####[place] [address] ED Clinical Summaryon 2023 ED Clinical Summary Normal [facility] ED Note-Physicianon 04-06-20 ED Note-Physician Normal [facility] Ethanolon 04-06-2024 Ethanol, Plasma <10 Normal <=9 [facility] Comment on above: Result Comment: To c onvert mg/dL to g/dL, divide result by 1,000. Legal limit of intoxication is 80 mg/dL (0.08 g/dL). Performed By: #### A LC ####[place] [address] Ethanol, Plasma 82 mg/dL High <=9 [facility] Comment on above: Result Comment: To c onvert mg/dL to g/dL, divide result by 1,000. Legal limit of intoxication is 80 mg/dL (0.08 g/dL). Performed By: #### A LC ####[address] [address] Lipaseon 04-06-2024 Lipase Lvl 44 IU/L Normal 22-51 [facility] Comment on above: Performed By: #### L IP ####[address] [address] PTon 04-06-2024 INR Coag (PPP) [Relative time] 0.9 {INR} Normal <=3.5 [facility] Comment on above: Result Comment: INR has no normal range. INR Therapeutic range is:2.0-3.0 (AF, CVA, TIAs, DVT prophylaxis, acute DVT)2.5-3.5 ([facility] heart valves, recurrent thrombosis/emboli) Performed By: #### P TINR ####[address] [address] PT Coag (PPP) [Time] 9.8 s Normal 9.2-12.0 [facility] Comment on above: Performed By: #### P TINR ####[address] [address] UA w Culture if Indon 2023 Color (U) Colorless Normal Yellow [facility] Comment on above: Performed By: #### U CI ####[address] [address] Ketones Ql (U) Negative Normal Negative [facility] Comment on above: Performed By: #### U CI ####[address] [address] UA Blood Negative Normal Negative [facility] Comment on above: Performed By: #### U CI ####[address] [address] UA Clarity Clear Normal Clear [facility] Comment on above: Performed By: #### U CI ####[address] [address] UA Glucose Normal Normal Negative [facility] Comment on above: Performed By: #### U CI ####[address] [address] UA Leukocyte Esterase Negative Normal Negative [facility] Comment on above: Performed By: #### U CI ####[address] [address] UA Nitrite Negative Normal Negative [facility] Comment on above: Performed By: #### U CI ####[address] [address] UA pH 5.5 Normal 4.5 - 7.8 [facility] Comment on above: Performed By: #### U CI ####[address] [address] UA Protein Negative Normal Negative [facility] Comment on above: Performed By: #### U CI ####[address] [address] UA Source Clean Catch Normal [facility] Comment on above: Performed By: #### U CI ####[address] [address] UA Spec Grav 1.005 Normal 1.003-1.035 [facility] Comment on above: Performed By: #### U CI ####[address] [address] UA Urobilinogen Normal Normal 0.2 - 1.0 [facility] Comment on above: Performed By: #### U CI ####[address] [address] Urobilinogen (U) [Mass/Vol] Negative Normal Negative [facility] Comment on above: Performed By: #### U CI ####[address] [address] UDS Compon 04-06-2024 Creatinine [Mass/Vol] 27.2 mg/dL Normal [facility] Comment on above: Performed By: #### C D:[id number] ####[address] [address] Ur Amph Scrn Positive Abnormal NEG = <1000 [facility] Comment on above: Result Comment: This unconfirmed positive screening result is to be used for medical treatment purposes only. Unconfirmed screening results must not be used for non-medical purposes (e.g. employment testing, legal testing). Performed By: #### C D:[id number] ####[address] [address] Ur Yenifer Scrn Negative Normal NEG = <200 [facility] Comment on above: Performed By: #### C [id number] ####[address] [address] Ur Benzodia Scrn Negative Normal NEG = <200 [facility] Comment on above: Performed By: #### C D:[id number] ####[address] [address] Ur Cannab Scrn Positive Abnormal NEG = <50 [facility] Comment on above: Result Comment: This unconfirmed positive screening result is to be used for medical treatment purposes only. Unconfirmed screening results must not be used for non-medical purposes (e.g. employment testing, legal testing). Performed By: #### C D:[id number] ####[address] [address] Ur Cocaine Scrn Negative Normal NEG = <300 [facility] Comment on above: Performed By: #### C D:[id number] ####[address] [address] Ur Methadone Scn Negative Normal NEG = <300 [facility] Comment on above: Performed By: #### C D:[id number] ####[address] [address] Ur Opiate Scrn Negative Normal NEG = <300 [facility] Comment on above: Performed By: #### C D:[id number] ####[address] [address] Ur Oxy Screen Negative Normal NEG = <100 [facility] Comment on above: Performed By: #### C [id number] ####[address] [address] Ur Oxy Scrn Qnt 0 ng/mL Normal <=99 [facility] Comment on above: Performed By: #### C D:[id number] ####[address] [address] Ur PCP Scrn Negative Normal NEG = <25 [facility] Comment on above: Performed By: #### C D:[id number] ####[address] [address] UA pH 5.5 Normal 4.5 - 7.8 [facility] Comment on above: Performed By: #### C D:[id number] ####[address] [address] UA Spec Grav 1.005 Normal 1.003-1.035 [facility] Comment on above: Performed By: #### C D:[id number] ####[address] [address] UDS Comp/Con 04-06-2024 UA pH 5.5 Normal 4.5 - 7.8 [facility] Comment on above: Performed By: #### C [id number] ####[address] [address] UA Spec Grav 1.005 Normal 1.003-1.035 [facility] Comment on above: Performed By: #### C D:[id number] ####[address] [address] Creatinine [Mass/Vol] 27.2 mg/dL Normal [facility] Comment on above: Performed By: #### C D:[id number] ####[address] [address] ED Clinical Summaryon 2023 ED Clinical Summary Normal [facility] ED Note-Physicianon 03-27-20 ED Note-Physician Normal [facility] ED Clinical Summaryon 2023 ED Clinical Summary Normal [facility] ED Note-Physicianon 03-04-20 ED Note-Physician Normal [facility] ED Note-Physician Normal [facility] .Fentanyl Scrn wo Conf,Uron 03-03-2024 Ur Fentanyl Scrn Negative Normal NEG <1.0 [facility] Comment on above: Performed By: #### C D:[id number] ####[place] [address] Ur Fentanyl Scrn Qnt 0.00 ng/mL Normal <=0.99 [facility] Comment on above: Performed By: #### C D:[id number] ####[place] [address] .UA Microscp Aon 03-03-2024 UA Mucus Present Normal Absent [facility] Comment on above: Performed By: #### . Urinalysis Microscopic Auto ####[place] [address] UA RBC Quant 0 /HPF Normal 0-5 [facility] Comment on above: Performed By: #### . Urinalysis Microscopic Auto ####[place] [address] UA Squepi Cells Quant 1 /HPF Normal 0-29 [facility] Comment on above: Performed By: #### . Urinalysis Microscopic Auto ####[place] [address] UA WBC Quant 2 /HPF Normal 0-5 [facility] Comment on above: Performed By: #### . Urinalysis Microscopic Auto ####[place] [address] .eGFRon 03-03-2024 GFR/1.73 sq M.predicted MDRD (S/P/Bld) [Vol rate/Area] mL/min/{1.73_m2} Normal >=60 [facility] Comment on above: Result Comment: [facility] Laboratories have implemented the eGFR calculation approach [...] = years Performed By: #### E GFR ####[place] [address] CBCon 03-03-2024 Erythrocyte distribution width (RBC) [Ratio] 13.0 % Normal 11.6-14.8 [facility] Comment on above: Performed By: #### C BCI ####[place] [address] Hematocrit (Bld) [Volume fraction] 48.8 % Normal 41.0-53.0 [facility] Comment on above: Performed By: #### C BCI ####[place] [address] Hemoglobin (Bld) [Mass/Vol] 16.6 g/dL Normal 13.5-17.5 [facility] Comment on above: Performed By: #### C BCI ####[place] [id number] MCH (RBC) [Entitic mass] 30.4 pg Normal 27.0-35.0 [facility] Comment on above: Performed By: #### C BCI ####[place] [id number] MCHC 34.0 % Normal 31.0-37.0 [facility] Comment on above: Performed By: #### C BCI ####[address] [address] MCV (RBC) [Entitic vol] 89.5 fL Normal 80.0-100.0 [facility] Comment on above: Performed By: #### C BCI ####[address] [address] Platelet 264 x10*3/mcL Normal 150-450 [facility] Comment on above: Performed By: #### C BCI ####[place] [id number] Platelet mean volume (Bld) [Entitic vol] 7.2 fL Normal 6.7-10.6 [facility] Comment on above: Performed By: #### C BCI ####[place] [id number] RBC 5.46 x10*6/mcL Normal 4.30-5.80 [facility] Comment on above: Performed By: #### C BCI ####[place] [id number] WBC 7.9 x10*3/mcL Normal 4.5-11.0 [facility] Comment on above: Performed By: #### C BCI ####[place] [id number] CMPon 03-03-2024 Albumin [Mass/Vol] 4.3 g/dL Normal 3.2-4.9 [facility] Comment on above: Performed By: #### C OMP ####[place] [id number] Albumin/Globulin [Mass ratio] 1.3 {ratio} Normal 1.1-2.2 [facility] Comment on above: Performed By: #### C OMP ####[place] [id number] Alk Phos 64 IU/L Normal 32-91 [facility] Comment on above: Performed By: #### C OMP ####[place] [id number] ALT [Catalytic activity/Vol] 31 U/L Normal 17-63 [facility] Comment on above: Performed By: #### C OMP ####[address] [address] AST [Catalytic activity/Vol] 26 U/L Normal 15-41 [facility] Comment on above: Performed By: #### C OMP ####[address] [address] Bili Total 1.2 mg/dL Normal 0.3-1.2 [facility] Comment on above: Performed By: #### C OMP ####[address] [address] Creatinine [Mass/Vol] 0.90 mg/dL Normal 0.61-1.24 [facility] Comment on above: Performed By: #### C OMP ####[address] [address] Protein [Mass/Vol] 7.5 g/dL Normal 6.5-8.1 [facility] Comment on above: Performed By: #### C OMP ####[address] [address] Urea nitrogen [Mass/Vol] 16 mg/dL Normal 8-26 [facility] Comment on above: Performed By: #### C OMP ####[address] [address] Urea nitrogen/Creatinine [Mass ratio] 17.8 mg/mg Normal 10.0-20.0 [facility] Comment on above: Performed By: #### C OMP ####[address] [address] Anion gap [Moles/Vol] 9 mmol/L Normal 4-12 [facility] Comment on above: Performed By: #### C OMP ####[address] [address] Calcium [Mass/Vol] 8.6 mg/dL Normal 8.5-10.3 [facility] Comment on above: Performed By: #### C OMP ####[address] [address] Chloride [Moles/Vol] 104 mmol/L Normal 98-110 [facility] Comment on above: Performed By: #### C OMP ####[address] [address] CO2 [Moles/Vol] 22 mmol/L Normal 22-32 [facility] Comment on above: Performed By: #### C OMP ####[address] [address] Glucose [Mass/Vol] 91 mg/dL Normal 70-99 [facility] Comment on above: Performed By: #### C OMP ####[address] [address] Potassium [Moles/Vol] 3.6 mmol/L Normal 3.4-4.8 [facility] Comment on above: Performed By: #### C OMP ####[address] [address] Sodium [Moles/Vol] 135 mmol/L Normal 133-142 [facility] Comment on above: Performed By: #### C OMP ####[address] [address] Ethanolon 03-03-2024 Ethanol, Plasma <10 Normal <=9 [facility] Comment on above: Result Comment: To c onvert mg/dL to g/dL, divide result by 1,000. Legal limit of intoxication is 80 mg/dL (0.08 g/dL). Performed By: #### A LC ####[address] [address] Magnesiumon 03-03-2024 Magnesium [Mass/Vol] 2.3 mg/dL Normal 1.7-2.4 [facility] Comment on above: Performed By: #### M G ####[address] [address] TSHon 03-03-2024 TSH Qn 5.99 m[IU]/L High 0.45-5.33 [facility] Comment on above: Result Comment: Refe rence Ranges for individuals from to 18 years of age were obtained from The [employer] Handbook (20 ed) published by [employer] [facility].Reference Ranges for Females: Females, 1st Trimester 0.05 ? 3.7 uIU/mL Females, 2nd Trimester 0.31 ? 4.35 uIU/mL Females, 3rd Trimester 0.41 ? 5.18 uIU/mL Performed By: #### T SH ####[address] [address] Total T4on 03-03-2024 T4 [Mass/Vol] 9.8 ug/dL Normal 5.0-11.5 [facility] Comment on above: Performed By: #### T 4 ####[address] [address] UA w Culture if Indon 2023 Color (U) Yellow Normal Yellow [facility] Comment on above: Performed By: #### U CI ####[address] [address] Ketones Ql (U) Trace Abnormal Negative [facility] Comment on above: Performed By: #### U CI ####[address] [address] UA Blood Negative Normal Negative [facility] Comment on above: Performed By: #### U CI ####[address] [address] UA Clarity Clear Normal Clear [facility] Comment on above: Performed By: #### U CI ####[address] [address] UA Glucose Normal Normal Negative [facility] Comment on above: Performed By: #### U CI ####[address] [address] UA Leukocyte Esterase Negative Normal Negative [facility] Comment on above: Performed By: #### U CI ####[address] [address] UA Nitrite Negative Normal Negative [facility] Comment on above: Performed By: #### U CI ####[address] [address] UA pH 6.5 Normal 4.5 - 7.8 [facility] Comment on above: Performed By: #### U CI ####[address] [address] UA Protein 20 mg/dL Normal Negative [facility] Comment on above: Performed By: #### U CI ####[address] [address] UA Source Clean Catch Normal [facility] Comment on above: Performed By: #### U CI ####[address] [address] UA Spec Grav 1.026 Normal 1.003-1.035 [facility] Comment on above: Performed By: #### U CI ####[address] [address] UA Urobilinogen 2 mg/dL Abnormal 0.2 - 1.0 [facility] Comment on above: Performed By: #### U CI ####[place] [id number] Urobilinogen (U) [Mass/Vol] Negative Normal Negative [facility] Comment on above: Performed By: #### U CI ####[address] [address] UDS Compon 03-03-2024 Creatinine [Mass/Vol] 265.3 mg/dL Normal Bl [facility] Comment on above: Performed By: #### C [id number] ####[address] [address] Ur Amph Scrn Positive Abnormal NEG = <1000 [facility] Comment on above: Result Comment: This unconfirmed positive screening result is to be used for medical treatment purposes only. Unconfirmed screening results must not be used for non-medical purposes (e.g. employment testing, legal testing). Performed By: #### C [id number] ####[address] [address] Ur Yenifer Scrn Negative Normal NEG = <200 [facility] Comment on above: Performed By: #### C [id number] ####[address] [address] Ur Benzodia Scrn Positive Abnormal NEG = <200 [facility] Comment on above: Result Comment: This unconfirmed positive screening result is to be used for medical treatment purposes only. Unconfirmed screening results must not be used for non-medical purposes (e.g. employment testing, legal testing). Performed By: #### C [id number] ####[address] [address] Ur Cannab Scrn Positive Abnormal NEG = <50 [facility] Comment on above: Result Comment: This unconfirmed positive screening result is to be used for medical treatment purposes only. Unconfirmed screening results must not be used for non-medical purposes (e.g. employment testing, legal testing). Performed By: #### C [id number] ####[address] [address] Ur Cocaine Scrn Negative Normal NEG = <300 [facility] Comment on above: Performed By: #### C [id number] ####[address] [address] Ur Methadone Scn Negative Normal NEG = <300 [facility] Comment on above: Performed By: #### C [id number] ####[address] [address] Ur Opiate Scrn Negative Normal NEG = <300 [facility] Comment on above: Performed By: #### C [id number] ####[address] [address] Ur Oxy Screen Negative Normal NEG = <100 [facility] Comment on above: Performed By: #### C [id number] ####[address] [address] Ur Oxy Scrn Qnt 17 ng/mL Normal <=99 [facility] Comment on above: Performed By: #### C [id number] ####[place] [address] Ur PCP Scrn Negative Normal NEG = <25 [facility] Comment on above: Performed By: #### C [id number] ####[place] [address] UA pH 6.5 Normal 4.5 - 7.8 [facility] Comment on above: Performed By: #### C [id number] ####[place] [address] UA Spec Grav 1.026 Normal 1.003-1.035 [facility] Comment on above: Performed By: #### C D:[id number] ####[place] [address] .Fentanyl Scrn wo Conf,Uron 03-01-2024 Ur Fentanyl Scrn Negative Normal NEG <1.0 [facility] Comment on above: Performed By: #### C [id number] ####[place] [address] Ur Fentanyl Scrn Qnt 0.26 ng/mL Normal <=0.99 [facility] Comment on above: Performed By: #### C D:[id number] ####[place] [address] .UA Microscp Aon 03-01-2024 UA RBC Quant 0 /HPF Normal 0-5 [facility] Comment on above: Performed By: #### . Urinalysis Microscopic Auto ####[place] [address] UA WBC Quant 2 /HPF Normal 0-5 [facility] Comment on above: Performed By: #### . Urinalysis Microscopic Auto ####[place] [address] .eGFRon 03-01-2024 GFR/1.73 sq M.predicted MDRD (S/P/Bld) [Vol rate/Area] mL/min/{1.73_m2} Normal >=60 [facility] Comment on above: Result Comment: [facility] Laboratories have implemented the eGFR calculation approach [...] = years Performed By: #### E GFR ####[place] [address] BNPon 03-01-2024 Natriuretic peptide B (Bld) [Mass/Vol] 5 pg/mL Normal 0-100 [facility] Comment on above: Performed By: #### B TURN SUPERVISOR ####[place] [id number] CBC w/ Diffon 03-01-2024 Erythrocyte distribution width (RBC) [Ratio] 13.0 % Normal 11.6-14.8 [facility] Comment on above: Performed By: #### C BC ####[place] [id number] Hematocrit (Bld) [Volume fraction] 46.5 % Normal 41.0-53.0 [facility] Comment on above: Performed By: #### C BC ####[address] [address] Hemoglobin (Bld) [Mass/Vol] 16.0 g/dL Normal 13.5-17.5 [facility] Comment on above: Performed By: #### C BC ####[place] [id number] MCH (RBC) [Entitic mass] 30.9 pg Normal 27.0-35.0 [facility] Comment on above: Performed By: #### C BC ####[place] [id number] MCHC 34.5 % Normal 31.0-37.0 [facility] Comment on above: Performed By: #### C BC ####[place] [id number] MCV (RBC) [Entitic vol] 89.6 fL Normal 80.0-100.0 [facility] Comment on above: Performed By: #### C BC ####[place] [id number] Platelet 261 x10*3/mcL Normal 150-450 [facility] Comment on above: Performed By: #### C BC ####[address] [address] Platelet mean volume (Bld) [Entitic vol] 7.2 fL Normal 6.7-10.6 [facility] Comment on above: Performed By: #### C BC ####[address] [address] RBC 5.19 x10*6/mcL Normal 4.30-5.80 [facility] Comment on above: Performed By: #### C BC ####[address] [address] WBC 8.7 x10*3/mcL Normal 4.5-11.0 [facility] Comment on above: Performed By: #### C BC ####[address] [address] CMPon 03-01-2024 Albumin [Mass/Vol] 4.2 g/dL Normal 3.2-4.9 [facility] Comment on above: Performed By: #### C OMP ####[address] [address] Albumin/Globulin [Mass ratio] 1.2 {ratio} Normal 1.1-2.2 [facility] Comment on above: Performed By: #### C OMP ####[address] [address] Alk Phos 63 IU/L Normal 32-91 [facility] Comment on above: Performed By: #### C OMP ####[address] [address] ALT [Catalytic activity/Vol] 28 U/L Normal 17-63 [facility] Comment on above: Performed By: #### C OMP ####[address] [address] Anion gap [Moles/Vol] 10 mmol/L Normal 4-12 [facility] Comment on above: Performed By: #### C OMP ####[address] [address] AST [Catalytic activity/Vol] 25 U/L Normal 15-41 [facility] Comment on above: Performed By: #### C OMP ####[address] [address] Bili Total 1.3 mg/dL High 0.3-1.2 [facility] Comment on above: Performed By: #### C OMP ####[address] [address] Calcium [Mass/Vol] 9.0 mg/dL Normal 8.5-10.3 [facility] Comment on above: Performed By: #### C OMP ####[address] [address] Chloride [Moles/Vol] 101 mmol/L Normal 98-110 [facility] Comment on above: Performed By: #### C OMP ####[address] [address] CO2 [Moles/Vol] 23 mmol/L Normal 22-32 [facility] Comment on above: Performed By: #### C OMP ####[address] [address] Creatinine [Mass/Vol] 1.15 mg/dL Normal 0.61-1.24 [facility] Comment on above: Performed By: #### C OMP ####[address] [address] Glucose [Mass/Vol] 91 mg/dL Normal 70-99 [facility] Comment on above: Performed By: #### C OMP ####[address] [address] Potassium [Moles/Vol] 3.4 mmol/L Normal 3.4-4.8 [facility] Comment on above: Performed By: #### C OMP ####[address] [address] Protein [Mass/Vol] 7.6 g/dL Normal 6.5-8.1 [facility] Comment on above: Performed By: #### C OMP ####[address] [address] Sodium [Moles/Vol] 134 mmol/L Normal 133-142 [facility] Comment on above: Performed By: #### C OMP ####[address] [address] Urea nitrogen [Mass/Vol] 13 mg/dL Normal 8-26 [facility] Comment on above: Performed By: #### C OMP ####[address] [address] Urea nitrogen/Creatinine [Mass ratio] 11.3 mg/mg Normal 10.0-20.0 [facility] Comment on above: Performed By: #### C OMP ####[address] [address] CoV2 Quadon 03-01-2024 Influenza A PCR Negative Normal Negative [facility] Comment on above: Performed By: #### C D:[id number] ####[place] [id number] Influenza B PCR Negative Normal Negative [facility] Comment on above: Performed By: #### C [id number] ####[place] [address] LAB ONLY Result Called? No Normal [facility] Comment on above: Performed By: #### C D:[id number] ####[place] [id number] RSV PCR Negative Normal Negative [facility] Comment on above: Result Comment: Resu lts [...] inaccurate positive results. Performed By: #### C D:[id number] ####[place] [address] SARS-CoV-2 RNA Detection Negative Normal Negative [facility] Comment on above: Result Comment: The 2019 [...] their healthcare provider. Performed By: #### C D:[id number] ####[place] [id number] Diff Autoon 03-01-2024 Baso Absolute 0.0 x10*3/mcL Normal 0.0-0.2 [facility] Comment on above: Performed By: #### . Automated Diff ####[place] [id number] Basophils/100 WBC (Bld) 0.3 % Normal 0.0-1.2 [facility] Comment on above: Performed By: #### . Automated Diff ####[address] [address] Eos Absolute 0.5 x10*3/mcL High 0.0-0.4 [facility] Comment on above: Performed By: #### . Automated Diff ####[address] [address] Eosinophils/100 WBC (Bld) 5.9 % Normal 0.0-6.1 [facility] Comment on above: Performed By: #### . Automated Diff ####[address] [address] Lymph Absolute 2.9 x10*3/mcL Normal 1.0-4.8 [facility] Comment on above: Performed By: #### . Automated Diff ####[address] [address] Lymphocytes/100 WBC (Bld) 33.0 % Normal 27.2-40.8 [facility] Comment on above: Performed By: #### . Automated Diff ####[address] [address] [place] Absolute 1.0 x10*3/mcL Normal 0.3-1.1 [facility] Comment on above: Performed By: #### . Automated Diff ####[address] [address] Monocytes/100 WBC (Bld) 10.9 % Normal 4.7-13.9 [facility] Comment on above: Performed By: #### . Automated Diff ####[address] [address] Neutro Absolute 4.4 x10*3/mcL Normal 1.8-7.7 [facility] Comment on above: Performed By: #### . Automated Diff ####[address] [address] Neutro Auto 49.9 % Normal 47.2-70.8 [facility] Comment on above: Performed By: #### . Automated Diff ####[address] [address] ED Clinical Summaryon 2023 ED Clinical Summary Normal [facility] ED Note-Physicianon 03-01-20 24 ED Note-Physician Normal [facility] Ethanolon 03-01-2024 Ethanol, Plasma <10 Normal <=9 [facility] Comment on above: Result Comment: To c onvert mg/dL to g/dL, divide result by 1,000. Legal limit of intoxication is 80 mg/dL (0.08 g/dL). Performed By: #### A LC ####[place] [id number] Magnesiumon 03-01-2024 Magnesium [Mass/Vol] 2.2 mg/dL Normal 1.7-2.4 [facility] Comment on above: Performed By: #### M G ####[address] [address] Myoglobinon 03-01-2024 Myoglobin [Mass/Vol] 49.9 ng/mL Normal [facility] Comment on above: Performed By: #### M YO ####[address] [address] PTon 03-01-2024 INR Coag (PPP) [Relative time] 1.0 {INR} Normal <=3.5 [facility] Comment on above: Result Comment: INR has no normal range. INR Therapeutic range is:2.0-3.0 (AF, CVA, TIAs, DVT prophylaxis, acute DVT)2.5-3.5 ([facility] heart valves, recurrent thrombosis/emboli) Performed By: #### P TINR ####[address] [address] PT Coag (PPP) [Time] 10.3 s Normal 9.2-12.0 [facility] Comment on above: Performed By: #### P TINR ####[address] [address] PTTon 03-01-2024 aPTT Coag (Bld) [Time] 23.2 s Normal 19.5-28.2 [facility] Comment on above: Performed By: #### P TT ####[place] [address] Strep A DNA Rapidon 03-01-20 S. pyogenes Ag IA Ql (Unsp spec) Negative Normal Negative [facility] Comment on above: Performed By: #### C D:[id number] ####[place] [address] Troponin-Ion 03-01-2024 Troponin I.cardiac [Mass/Vol] ng/mL Normal 0.00-0.03 [facility] Comment on above: Result Comment: An i ncreased Troponin-I value, in the absence of myocardial ischemia, may indicate other etiologies of cardiac damage. Performed By: #### T ROP ####[place] [address] UA w Culture if Indon 2023 Color (U) Light-Yellow Normal Yellow [facility] Comment on above: Performed By: #### U CI ####[place] [id number] Ketones Ql (U) Negative Normal Negative [facility] Comment on above: Performed By: #### U CI ####[address] [address] UA Blood Negative Normal Negative [facility] Comment on above: Performed By: #### U CI ####[address] [address] UA Clarity Clear Normal Clear [facility] Comment on above: Performed By: #### U CI ####[address] [address] UA Glucose Normal Normal Negative [facility] Comment on above: Performed By: #### U CI ####[place] [id number] UA Leukocyte Esterase Negative Normal Negative [facility] Comment on above: Performed By: #### U CI ####[address] [address] UA Nitrite Negative Normal Negative [facility] Comment on above: Performed By: #### U CI ####[address] [address] UA pH 6.0 Normal 4.5 - 7.8 [facility] Comment on above: Performed By: #### U CI ####[address] [address] UA Protein Negative Normal Negative [facility] Comment on above: Performed By: #### U CI ####[address] [address] UA Source Clean Catch Normal [facility] Comment on above: Performed By: #### U CI ####[address] [address] UA Spec Grav 1.006 Normal 1.003-1.035 [facility] Comment on above: Performed By: #### U CI ####[address] [address] UA Urobilinogen Normal Normal 0.2 - 1.0 [facility] Comment on above: Performed By: #### U CI ####[address] [address] Urobilinogen (U) [Mass/Vol] Negative Normal Negative [facility] Comment on above: Performed By: #### U CI ####[address] [address] UDS Compon 03-01-2024 Creatinine [Mass/Vol] 51.2 mg/dL Normal [facility] Comment on above: Performed By: #### C [id number] ####[address] [address] Ur Amph Scrn Positive Abnormal NEG = <1000 [facility] Comment on above: Result Comment: This unconfirmed positive screening result is to be used for medical treatment purposes only. Unconfirmed screening results must not be used for non-medical purposes (e.g. employment testing, legal testing). Performed By: #### C [id number] ####[address] [address] Ur Yenifer Scrn Negative Normal NEG = <200 [facility] Comment on above: Performed By: #### C D:[id number] ####[address] [address] Ur Benzodia Scrn Positive Abnormal NEG = <200 [facility] Comment on above: Result Comment: This unconfirmed positive screening result is to be used for medical treatment purposes only. Unconfirmed screening results must not be used for non-medical purposes (e.g. employment testing, legal testing). Performed By: #### C D:[id number] ####[place] [id number] Ur Cannab Scrn Positive Abnormal NEG = <50 [facility] Comment on above: Result Comment: This unconfirmed positive screening result is to be used for medical treatment purposes only. Unconfirmed screening results must not be used for non-medical purposes (e.g. employment testing, legal testing). Performed By: #### C D:[id number] ####[address] [address] Ur Cocaine Scrn Negative Normal NEG = <300 [facility] Comment on above: Performed By: #### C D:[id number] ####[address] [address] Ur Methadone Scn Negative Normal NEG = <300 [facility] Comment on above: Performed By: #### C D:[id number] ####[address] [address] Ur Opiate Scrn Negative Normal NEG = <300 [facility] Comment on above: Performed By: #### C D:[id number] ####[address] [address] Ur Oxy Screen Negative Normal NEG = <100 [facility] Comment on above: Performed By: #### C D:[id number] ####[address] [address] Ur Oxy Scrn Qnt 14 ng/mL Normal <=99 [facility] Comment on above: Performed By: #### C D:[id number] ####[address] [address] Ur PCP Scrn Negative Normal NEG = <25 [facility] Comment on above: Performed By: #### C D:[id number] ####[address] [address] UA pH 6.0 Normal 4.5 - 7.8 [facility] Comment on above: Performed By: #### C D:[id number] ####[address] [address] UA Spec Grav 1.005 Normal 1.003-1.035 [facility] Comment on above: Performed By: #### C D:[id number] ####[address] [address] XR Chest 1 Viewon 03-01-2024 XR Chest 1 View Normal [facility] .eGFRon 01-17-2024 GFR/1.73 sq M.predicted MDRD (S/P/Bld) [Vol rate/Area] mL/min/{1.73_m2} Normal >=60 [facility] Comment on above: Result Comment: [facility] Laboratories have implemented the eGFR calculation approach [...] = years Performed By: #### E GFR ####[address] [address] CBC w/ Diffon 01-17-2024 Erythrocyte distribution width (RBC) [Ratio] 13.8 % Normal 11.6-14.8 [facility] Comment on above: Performed By: #### C BC ####[place] [id number] Hematocrit (Bld) [Volume fraction] 43.3 % Normal 41.0-53.0 [facility] Comment on above: Performed By: #### C BC ####[place] [id number] Hemoglobin (Bld) [Mass/Vol] 14.6 g/dL Normal 13.5-17.5 [facility] Comment on above: Performed By: #### C BC ####[address] [address] MCH (RBC) [Entitic mass] 30.7 pg Normal 27.0-35.0 [facility] Comment on above: Performed By: #### C BC ####[place] [id number] MCHC 33.8 % Normal 31.0-37.0 [facility] Comment on above: Performed By: #### C BC ####[address] [address] MCV (RBC) [Entitic vol] 91.0 fL Normal 80.0-100.0 [facility] Comment on above: Performed By: #### C BC ####[address] [address] Platelet 201 x10*3/mcL Normal 150-450 [facility] Comment on above: Performed By: #### C BC ####[address] [address] Platelet mean volume (Bld) [Entitic vol] 7.8 fL Normal 6.7-10.6 [facility] Comment on above: Performed By: #### C BC ####[address] [address] RBC 4.75 x10*6/mcL Normal 4.30-5.80 [facility] Comment on above: Performed By: #### C BC ####[address] [address] WBC 7.2 x10*3/mcL Normal 4.5-11.0 [facility] Comment on above: Performed By: #### C BC ####[address] [address] CMPon 01-17-2024 Albumin [Mass/Vol] 3.4 g/dL Normal 3.2-4.9 [facility] Comment on above: Performed By: #### C OMP ####[address] [address] Albumin/Globulin [Mass ratio] 1.2 {ratio} Normal 1.1-2.2 [facility] Comment on above: Performed By: #### C OMP ####[address] [address] Alk Phos 51 IU/L Normal 32-91 [facility] Comment on above: Performed By: #### C OMP ####[address] [address] ALT [Catalytic activity/Vol] 25 U/L Normal 17-63 [facility] Comment on above: Performed By: #### C OMP ####[address] [address] Anion gap [Moles/Vol] 7 mmol/L Normal 4-12 [facility] Comment on above: Performed By: #### C OMP ####[address] [address] AST [Catalytic activity/Vol] 26 U/L Normal 15-41 [facility] Comment on above: Performed By: #### C OMP ####[address] [address] Bili Total 0.5 mg/dL Normal 0.3-1.2 [facility] Comment on above: Performed By: #### C OMP ####[address] [address] Calcium [Mass/Vol] 8.7 mg/dL Normal 8.5-10.3 [facility] Comment on above: Performed By: #### C OMP ####[address] [address] Chloride [Moles/Vol] 103 mmol/L Normal 98-110 [facility] Comment on above: Performed By: #### C OMP ####[address] [address] CO2 [Moles/Vol] 29 mmol/L Normal 22-32 [facility] Comment on above: Performed By: #### C OMP ####[address] [address] Creatinine [Mass/Vol] 0.97 mg/dL Normal 0.61-1.24 [facility] Comment on above: Performed By: #### C OMP ####[address] [address] Glucose [Mass/Vol] 96 mg/dL Normal 70-99 [facility] Comment on above: Performed By: #### C OMP ####[address] [address] Potassium [Moles/Vol] 4.0 mmol/L Normal 3.4-4.8 [facility] Comment on above: Performed By: #### C OMP ####[address] [address] Protein [Mass/Vol] 6.2 g/dL Low 6.5-8.1 [facility] Comment on above: Performed By: #### C OMP ####[address] [address] Sodium [Moles/Vol] 139 mmol/L Normal 133-142 [facility] Comment on above: Performed By: #### C OMP ####[address] [address] Urea nitrogen [Mass/Vol] 17 mg/dL Normal 8-26 [facility] Comment on above: Performed By: #### C OMP ####[address] [address] Urea nitrogen/Creatinine [Mass ratio] 17.5 mg/mg Normal 10.0-20.0 [facility] Comment on above: Performed By: #### C OMP ####[address] [address] Diff Autoon 01-17-2024 Baso Absolute 0.1 x10*3/mcL Normal 0.0-0.2 [facility] Comment on above: Performed By: #### . Automated Diff ####[address] [address] Basophils/100 WBC (Bld) 1.5 % High 0.0-1.2 [facility] Comment on above: Performed By: #### . Automated Diff ####[address] [address] Eos Absolute 0.5 x10*3/mcL High 0.0-0.4 [facility] Comment on above: Performed By: #### . Automated Diff ####[address] [address] Eosinophils/100 WBC (Bld) 6.4 % High 0.0-6.1 [facility] Comment on above: Performed By: #### . Automated Diff ####[address] [address] Lymph Absolute 2.6 x10*3/mcL Normal 1.0-4.8 [facility] Comment on above: Performed By: #### . Automated Diff ####[address] [place] [address] Lymphocytes/100 WBC (Bld) 36.0 % Normal 27.2-40.8 [facility] Comment on above: Performed By: #### . Automated Diff ####[place] [id number] [place] Absolute 0.8 x10*3/mcL Normal 0.3-1.1 [facility] Comment on above: Performed By: #### . Automated Diff ####[place] [id number] Monocytes/100 WBC (Bld) 11.1 % Normal 4.7-13.9 [facility] Comment on above: Performed By: #### . Automated Diff ####[place] [id number] Neutro Absolute 3.2 x10*3/mcL Normal 1.8-7.7 [facility] Comment on above: Performed By: #### . Automated Diff ####[place] [address] Neutro Auto 45.0 % Low 47.2-70.8 [facility] Comment on above: Performed By: #### . Automated Diff ####[place] [id number] Inpatient Clinical Summaryon 01-17-2024 Inpatient Clinical Summary Normal [facility] Magnesiumon 01-17-2024 Magnesium [Mass/Vol] 2.2 mg/dL Normal 1.7-2.4 [facility] Comment on above: Performed By: #### M G ####[place] [address] Progress Note-Nurseon 2023 Progress Note-Nurse Normal [facility] .eGFRon 01-16-2024 GFR/1.73 sq M.predicted MDRD (S/P/Bld) [Vol rate/Area] mL/min/{1.73_m2} Normal >=60 [facility] Comment on above: Result Comment: [facility] Laboratories have implemented the eGFR calculation approach [...] = years Performed By: #### E GFR ####[place] [address] CBC w/ Diffon 01-16-2024 Erythrocyte distribution width (RBC) [Ratio] 13.7 % Normal 11.6-14.8 [facility] Comment on above: Performed By: #### C BC ####[place] [id number] Hematocrit (Bld) [Volume fraction] 43.7 % Normal 41.0-53.0 [facility] Comment on above: Performed By: #### C BC ####[place] [id number] Hemoglobin (Bld) [Mass/Vol] 14.8 g/dL Normal 13.5-17.5 [facility] Comment on above: Performed By: #### C BC ####[place] [id number] MCH (RBC) [Entitic mass] 30.8 pg Normal 27.0-35.0 [facility] Comment on above: Performed By: #### C BC ####[place] [id number] MCHC 33.8 % Normal 31.0-37.0 [facility] Comment on above: Performed By: #### C BC ####[address] [address] MCV (RBC) [Entitic vol] 91.2 fL Normal 80.0-100.0 [facility] Comment on above: Performed By: #### C BC ####[address] [address] Platelet 192 x10*3/mcL Normal 150-450 [facility] Comment on above: Performed By: #### C BC ####[address] [address] Platelet mean volume (Bld) [Entitic vol] 7.5 fL Normal 6.7-10.6 [facility] Comment on above: Performed By: #### C BC ####[address] [address] RBC 4.79 x10*6/mcL Normal 4.30-5.80 [facility] Comment on above: Performed By: #### C BC ####[address] [address] WBC 5.9 x10*3/mcL Normal 4.5-11.0 [facility] Comment on above: Performed By: #### C BC ####[address] [address] CMPon 01-16-2024 Albumin [Mass/Vol] 3.7 g/dL Normal 3.2-4.9 [facility] Comment on above: Performed By: #### C OMP ####[address] [address] Albumin/Globulin [Mass ratio] 1.1 {ratio} Normal 1.1-2.2 [facility] Comment on above: Performed By: #### C OMP ####[address] [address] Alk Phos 54 IU/L Normal 32-91 [facility] Comment on above: Performed By: #### C OMP ####[address] [address] ALT [Catalytic activity/Vol] 27 U/L Normal 17-63 [facility] Comment on above: Performed By: #### C OMP ####[address] [address] Anion gap [Moles/Vol] 8 mmol/L Normal 4-12 [facility] Comment on above: Performed By: #### C OMP ####[address] [address] AST [Catalytic activity/Vol] 24 U/L Normal 15-41 [facility] Comment on above: Performed By: #### C OMP ####[address] [address] Bili Total 1.0 mg/dL Normal 0.3-1.2 [facility] Comment on above: Performed By: #### C OMP ####[address] [address] Calcium [Mass/Vol] 8.6 mg/dL Normal 8.5-10.3 [facility] Comment on above: Performed By: #### C OMP ####[address] [address] Chloride [Moles/Vol] 101 mmol/L Normal 98-110 [facility] Comment on above: Performed By: #### C OMP ####[address] [address] CO2 [Moles/Vol] 28 mmol/L Normal 22-32 [facility] Comment on above: Performed By: #### C OMP ####[address] [address] Creatinine [Mass/Vol] 0.84 mg/dL Normal 0.61-1.24 [facility] Comment on above: Performed By: #### C OMP ####[address] [address] Glucose [Mass/Vol] 98 mg/dL Normal 70-99 [facility] Comment on above: Performed By: #### C OMP ####[address] [address] Potassium [Moles/Vol] 4.0 mmol/L Normal 3.4-4.8 [facility] Comment on above: Performed By: #### C OMP ####[address] [address] Protein [Mass/Vol] 7.1 g/dL Normal 6.5-8.1 [facility] Comment on above: Performed By: #### C OMP ####[address] [address] Sodium [Moles/Vol] 137 mmol/L Normal 133-142 [facility] Comment on above: Performed By: #### C OMP ####[address] [address] Urea nitrogen [Mass/Vol] 18 mg/dL Normal 8-26 [facility] Comment on above: Performed By: #### C OMP ####[address] [address] Urea nitrogen/Creatinine [Mass ratio] 21.4 mg/mg High 10.0-20.0 [facility] Comment on above: Performed By: #### C OMP ####[address] [address] Diff Autoon 01-16-2024 Baso Absolute 0.1 x10*3/mcL Normal 0.0-0.2 [facility] Comment on above: Performed By: #### . Automated Diff ####[address] [address] Basophils/100 WBC (Bld) 1.5 % High 0.0-1.2 [facility] Comment on above: Performed By: #### . Automated Diff ####[address] [address] Eos Absolute 0.4 x10*3/mcL Normal 0.0-0.4 [facility] Comment on above: Performed By: #### . Automated Diff ####[address] [address] Eosinophils/100 WBC (Bld) 6.4 % High 0.0-6.1 [facility] Comment on above: Performed By: #### . Automated Diff ####[address] [address] Lymph Absolute 2.1 x10*3/mcL Normal 1.0-4.8 [facility] Comment on above: Performed By: #### . Automated Diff ####[address] [address] Lymphocytes/100 WBC (Bld) 35.9 % Normal 27.2-40.8 [facility] Comment on above: Performed By: #### . Automated Diff ####[address] [address] [place] Absolute 0.6 x10*3/mcL Normal 0.3-1.1 [facility] Comment on above: Performed By: #### . Automated Diff ####[address] [address] Monocytes/100 WBC (Bld) 9.4 % Normal 4.7-13.9 [facility] Comment on above: Performed By: #### . Automated Diff ####[address] [address] Neutro Absolute 2.8 x10*3/mcL Normal 1.8-7.7 [facility] Comment on above: Performed By: #### . Automated Diff ####[address] [address] Neutro Auto 46.8 % Low 47.2-70.8 [facility] Comment on above: Performed By: #### . Automated Diff ####[address] [address] Magnesiumon 01-16-2024 Magnesium [Mass/Vol] 2.3 mg/dL Normal 1.7-2.4 [facility] Comment on above: Performed By: #### M G ####[address] [address] Progress Note-Nurseon 2023 Progress Note-Nurse Normal [facility] .eGFRon 01-15-2024 GFR/1.73 sq M.predicted MDRD (S/P/Bld) [Vol rate/Area] mL/min/{1.73_m2} Normal >=60 [facility] Comment on above: Result Comment: [facility] Laboratories have implemented the eGFR calculation approach [...] = years Performed By: #### E GFR ####[address] [address] CBC w/ Diffon 01-15-2024 Erythrocyte distribution width (RBC) [Ratio] 13.8 % Normal 11.6-14.8 [facility] Comment on above: Performed By: #### C BC ####[address] [address] Hematocrit (Bld) [Volume fraction] 42.0 % Normal 41.0-53.0 [facility] Comment on above: Performed By: #### C BC ####[address] [address] Hemoglobin (Bld) [Mass/Vol] 14.2 g/dL Normal 13.5-17.5 [facility] Comment on above: Performed By: #### C BC ####[address] [address] MCH (RBC) [Entitic mass] 30.7 pg Normal 27.0-35.0 [facility] Comment on above: Performed By: #### C BC ####[address] [address] MCHC 33.7 % Normal 31.0-37.0 [facility] Comment on above: Performed By: #### C BC ####[address] [address] MCV (RBC) [Entitic vol] 91.2 fL Normal 80.0-100.0 [facility] Comment on above: Performed By: #### C BC ####[address] [address] Platelet 208 x10*3/mcL Normal 150-450 [facility] Comment on above: Performed By: #### C BC ####[address] [address] Platelet mean volume (Bld) [Entitic vol] 7.6 fL Normal 6.7-10.6 [facility] Comment on above: Performed By: #### C BC ####[address] [address] RBC 4.61 x10*6/mcL Normal 4.30-5.80 [facility] Comment on above: Performed By: #### C BC ####[address] [address] WBC 6.8 x10*3/mcL Normal 4.5-11.0 [facility] Comment on above: Performed By: #### C BC ####[address] [address] CMPon 01-15-2024 Albumin [Mass/Vol] 3.6 g/dL Normal 3.2-4.9 [facility] Comment on above: Performed By: #### C OMP ####[address] [address] Albumin/Globulin [Mass ratio] 1.2 {ratio} Normal 1.1-2.2 [facility] Comment on above: Performed By: #### C OMP ####[address] [address] Alk Phos 48 IU/L Normal 32-91 [facility] Comment on above: Performed By: #### C OMP ####[address] [address] ALT [Catalytic activity/Vol] 27 U/L Normal 17-63 [facility] Comment on above: Performed By: #### C OMP ####[address] [address] Anion gap [Moles/Vol] 8 mmol/L Normal 4-12 [facility] Comment on above: Performed By: #### C OMP ####[address] [address] AST [Catalytic activity/Vol] 28 U/L Normal 15-41 [facility] Comment on above: Performed By: #### C OMP ####[address] [address] Bili Total 0.9 mg/dL Normal 0.3-1.2 [facility] Comment on above: Performed By: #### C OMP ####[address] [address] Calcium [Mass/Vol] 8.2 mg/dL Low 8.5-10.3 [facility] Comment on above: Performed By: #### C OMP ####[address] [address] Chloride [Moles/Vol] 104 mmol/L Normal 98-110 [facility] Comment on above: Performed By: #### C OMP ####[address] [address] CO2 [Moles/Vol] 26 mmol/L Normal 22-32 [facility] Comment on above: Performed By: #### C OMP ####[address] [address] Creatinine [Mass/Vol] 0.95 mg/dL Normal 0.61-1.24 [facility] Comment on above: Performed By: #### C OMP ####[address] [address] Glucose [Mass/Vol] 84 mg/dL Normal 70-99 [facility] Comment on above: Performed By: #### C OMP ####[address] [address] Potassium [Moles/Vol] 3.7 mmol/L Normal 3.4-4.8 [facility] Comment on above: Performed By: #### C OMP ####[address] [address] Protein [Mass/Vol] 6.6 g/dL Normal 6.5-8.1 [facility] Comment on above: Performed By: #### C OMP ####[address] [address] Sodium [Moles/Vol] 138 mmol/L Normal 133-142 [facility] Comment on above: Performed By: #### C OMP ####[address] [address] Urea nitrogen [Mass/Vol] 19 mg/dL Normal 8-26 [facility] Comment on above: Performed By: #### C OMP ####[address] [address] Urea nitrogen/Creatinine [Mass ratio] 20.0 mg/mg Normal 10.0-20.0 [facility] Comment on above: Performed By: #### C OMP ####[address] [address] Diff Autoon 01-15-2024 Baso Absolute 0.0 x10*3/mcL Normal 0.0-0.2 [facility] Comment on above: Performed By: #### . Automated Diff ####[address] [address] Basophils/100 WBC (Bld) 0.6 % Normal 0.0-1.2 [facility] Comment on above: Performed By: #### . Automated Diff ####[address] [address] Eos Absolute 0.4 x10*3/mcL Normal 0.0-0.4 [facility] Comment on above: Performed By: #### . Automated Diff ####[address] [address] Eosinophils/100 WBC (Bld) 5.7 % Normal 0.0-6.1 [facility] Comment on above: Performed By: #### . Automated Diff ####[address] [address] Lymph Absolute 2.4 x10*3/mcL Normal 1.0-4.8 [facility] Comment on above: Performed By: #### . Automated Diff ####[address] [address] Lymphocytes/100 WBC (Bld) 35.4 % Normal 27.2-40.8 [facility] Comment on above: Performed By: #### . Automated Diff ####[address] [address] [place] Absolute 0.8 x10*3/mcL Normal 0.3-1.1 [facility] Comment on above: Performed By: #### . Automated Diff ####[address] [address] Monocytes/100 WBC (Bld) 12.0 % Normal 4.7-13.9 [facility] Comment on above: Performed By: #### . Automated Diff ####[address] [address] Neutro Absolute 3.1 x10*3/mcL Normal 1.8-7.7 [facility] Comment on above: Performed By: #### . Automated Diff ####[address] [address] Neutro Auto 46.3 % Low 47.2-70.8 [facility] Comment on above: Performed By: #### . Automated Diff ####[place] [address] ED Clinical Summaryon 2023 ED Clinical Summary Normal [facility] Magnesiumon 01-15-2024 Magnesium [Mass/Vol] 2.1 mg/dL Normal 1.7-2.4 [facility] Comment on above: Performed By: #### M G ####[place] [address] .Fentanyl Scrn wo Conf,Uron 01-14-2024 Ur Fentanyl Scrn Negative Normal NEG <1.0 [facility] Comment on above: Performed By: #### C D:[id number] ####[place] [address] Ur Fentanyl Scrn Qnt 0.38 ng/mL Normal <=0.99 [facility] Comment on above: Performed By: #### C D:[id number] ####[place] [address] .UA Microscp Aon 01-14-2024 UA Mucus Present Normal Absent [facility] Comment on above: Performed By: #### . Urinalysis Microscopic Auto ####[place] [address] UA RBC Quant 0 /HPF Normal 0-5 [facility] Comment on above: Performed By: #### . Urinalysis Microscopic Auto ####[place] [address] UA WBC Quant 0 /HPF Normal 0-5 [facility] Comment on above: Performed By: #### . Urinalysis Microscopic Auto ####[place] [address] .eGFRon 01-14-2024 GFR/1.73 sq M.predicted MDRD (S/P/Bld) [Vol rate/Area] mL/min/{1.73_m2} Normal >=60 [facility] Comment on above: Result Comment: [facility] Laboratories have implemented the eGFR calculation approach [...] = years Performed By: #### E GFR ####[address] [address] Basic Metabolic Profileon Anion gap [Moles/Vol] 11 mmol/L Normal 4-12 [facility] Comment on above: Performed By: #### C D:[id number] ####[address] [address] Calcium [Mass/Vol] 9.1 mg/dL Normal 8.5-10.3 [facility] Comment on above: Performed By: #### C D:[id number] ####[address] [address] Chloride [Moles/Vol] 102 mmol/L Normal 98-110 [facility] Comment on above: Performed By: #### C D:[id number] ####[address] [address] CO2 [Moles/Vol] 25 mmol/L Normal 22-32 [facility] Comment on above: Performed By: #### C D:[id number] ####[place] [id number] [place] [address] Creatinine [Mass/Vol] 0.92 mg/dL Normal 0.61-1.24 [facility] Comment on above: Performed By: #### C D:[id number] ####[address] [address] Glucose [Mass/Vol] 90 mg/dL Normal 70-99 [facility] Comment on above: Performed By: #### C D:[id number] ####[address] [address] Potassium [Moles/Vol] 4.0 mmol/L Normal 3.4-4.8 [facility] Comment on above: Performed By: #### C D:[id number] ####[address] [address] Sodium [Moles/Vol] 138 mmol/L Normal 133-142 [facility] Comment on above: Performed By: #### C [id number] ####[address] [address] Urea nitrogen [Mass/Vol] 18 mg/dL Normal 8-26 [facility] Comment on above: Performed By: #### C D:[id number] ####[address] [address] Urea nitrogen/Creatinine [Mass ratio] 19.6 mg/mg Normal 10.0-20.0 [facility] Comment on above: Performed By: #### C D:[id number] ####[address] [address] CBC w/ Diffon 01-14-2024 Erythrocyte distribution width (RBC) [Ratio] 13.4 % Normal 11.6-14.8 [facility] Comment on above: Performed By: #### C BC ####[address] [address] Hematocrit (Bld) [Volume fraction] 45.0 % Normal 41.0-53.0 [facility] Comment on above: Performed By: #### C BC ####[address] [address] Hemoglobin (Bld) [Mass/Vol] 15.4 g/dL Normal 13.5-17.5 [facility] Comment on above: Performed By: #### C BC ####[address] [address] MCH (RBC) [Entitic mass] 31.0 pg Normal 27.0-35.0 [facility] Comment on above: Performed By: #### C BC ####[address] [address] [address] MCHC 34.3 % Normal 31.0-37.0 [facility] Comment on above: Performed By: #### C BC ####[address] [address] MCV (RBC) [Entitic vol] 90.2 fL Normal 80.0-100.0 [facility] Comment on above: Performed By: #### C BC ####[address] [address] Platelet 243 x10*3/mcL Normal 150-450 [facility] Comment on above: Performed By: #### C BC ####[address] [address] Platelet mean volume (Bld) [Entitic vol] 7.6 fL Normal 6.7-10.6 [facility] Comment on above: Performed By: #### C BC ####[address] [address] RBC 4.98 x10*6/mcL Normal 4.30-5.80 [facility] Comment on above: Performed By: #### C BC ####[address] [address] WBC 7.8 x10*3/mcL Normal 4.5-11.0 [facility] Comment on above: Performed By: #### C BC ####[address] [address] COV19 Rapidon 01-14-2024 LAB ONLY Result Called? No Normal [facility] Comment on above: Performed By: #### C D:[id number] ####[address] [address] Reason for Rapid Test Inpatient Normal [facility] Comment on above: Performed By: #### C D:[id number] ####[address] [address] SARS-CoV-2 (COVID-19) RNA BRITTANY+probe Ql (Unsp spec) Negative Normal Negative [facility] Comment on above: Result Comment: The 2019 [...] respiratory tract infection. Performed By: #### C D:[id number] ####[address] [address] Diff Autoon 01-14-2024 Baso Absolute 0.1 x10*3/mcL Normal 0.0-0.2 [facility] Comment on above: Performed By: #### . Automated Diff ####[address] [address] Basophils/100 WBC (Bld) 1.4 % High 0.0-1.2 [facility] Comment on above: Performed By: #### . Automated Diff ####[address] [address] Eos Absolute 0.2 x10*3/mcL Normal 0.0-0.4 [facility] Comment on above: Performed By: #### . Automated Diff ####[address] [address] Eosinophils/100 WBC (Bld) 2.2 % Normal 0.0-6.1 [facility] Comment on above: Performed By: #### . Automated Diff ####[address] [address] Lymph Absolute 2.3 x10*3/mcL Normal 1.0-4.8 [facility] Comment on above: Performed By: #### . Automated Diff ####[address] [address] Lymphocytes/100 WBC (Bld) 29.0 % Normal 27.2-40.8 [facility] Comment on above: Performed By: #### . Automated Diff ####[address] [address] [place] Absolute 0.7 x10*3/mcL Normal 0.3-1.1 [facility] Comment on above: Performed By: #### . Automated Diff ####[address] [address] Monocytes/100 WBC (Bld) 9.3 % Normal 4.7-13.9 [facility] Comment on above: Performed By: #### . Automated Diff ####[address] [address] Neutro Absolute 4.5 x10*3/mcL Normal 1.8-7.7 [facility] Comment on above: Performed By: #### . Automated Diff ####[address] [address] Neutro Auto 58.1 % Normal 47.2-70.8 [facility] Comment on above: Performed By: #### . Automated Diff ####[address] [address] ED Note-Physicianon 01-14-20 ED Note-Physician Normal [facility] Ethanolon 01-14-2024 Ethanol, Plasma 45 mg/dL High <=9 [facility] Comment on above: Result Comment: To c onvert mg/dL to g/dL, divide result by 1,000. Legal limit of intoxication is 80 mg/dL (0.08 g/dL). Performed By: #### A LC ####[place] [id number] UA w Culture if Indon 2023 Color (U) Light-Yellow Normal Yellow [facility] Comment on above: Performed By: #### U CI ####[address] [address] Ketones Ql (U) Negative Normal Negative [facility] Comment on above: Performed By: #### U CI ####[address] [address] UA Blood Negative Normal Negative [facility] Comment on above: Performed By: #### U CI ####[address] [address] UA Clarity Clear Normal Clear [facility] Comment on above: Performed By: #### U CI ####[address] [address] UA Glucose Normal Normal Negative [facility] Comment on above: Performed By: #### U CI ####[address] [address] UA Leukocyte Esterase Negative Normal Negative [facility] Comment on above: Performed By: #### U CI ####[address] [address] UA Nitrite Negative Normal Negative [facility] Comment on above: Performed By: #### U CI ####[address] [address] UA pH 5.5 Normal 4.5 - 7.8 [facility] Comment on above: Performed By: #### U CI ####[address] [address] UA Protein Negative Normal Negative [facility] Comment on above: Performed By: #### U CI ####[address] [address] UA Source Clean Catch Normal [facility] Comment on above: Performed By: #### U CI ####[address] [address] UA Spec Grav 1.016 Normal 1.003-1.035 [facility] Comment on above: Performed By: #### U CI ####[address] [address] UA Urobilinogen Normal Normal 0.2 - 1.0 [facility] Comment on above: Performed By: #### U CI ####[place] [address]40 Urobilinogen (U) [Mass/Vol] Negative Normal Negative [facility] Comment on above: Performed By: #### U CI ####[address] [address] UDS Compon 01-14-2024 Creatinine [Mass/Vol] 60.3 mg/dL Normal [facility] Comment on above: Performed By: #### C D:[id number] ####[address] [address] Ur Amph Scrn Negative Normal NEG = <1000 [facility] Comment on above: Performed By: #### C D:[id number] ####[address] [address] Ur Yenifer Scrn Negative Normal NEG = <200 [facility] Comment on above: Performed By: #### C D:[id number] ####[address] [address] Ur Benzodia Scrn Positive Abnormal NEG = <200 [facility] Comment on above: Result Comment: This unconfirmed positive screening result is to be used for medical treatment purposes only. Unconfirmed screening results must not be used for non-medical purposes (e.g. employment testing, legal testing). Performed By: #### C D:[id number] ####[address] [address] Ur Cannab Scrn Positive Abnormal NEG = <50 [facility] Comment on above: Result Comment: This unconfirmed positive screening result is to be used for medical treatment purposes only. Unconfirmed screening results must not be used for non-medical purposes (e.g. employment testing, legal testing). Performed By: #### C D:[id number] ####[address] [address] Ur Cocaine Scrn Negative Normal NEG = <300 [facility] Comment on above: Performed By: #### C D:[id number] ####[address] [address] Ur Methadone Scn Negative Normal NEG = <300 [facility] Comment on above: Performed By: #### C D:[id number] ####[address] [address] Ur Opiate Scrn Negative Normal NEG = <300 [facility] Comment on above: Performed By: #### C D:[id number] ####[address] [address] Ur Oxy Screen Negative Normal NEG = <100 [facility] Comment on above: Performed By: #### C D:[id number] ####[address] [address] Ur Oxy Scrn Qnt 0 ng/mL Normal <=99 [facility] Comment on above: Performed By: #### C D:[id number] ####[address] [address] Ur PCP Scrn Negative Normal NEG = <25 [facility] Comment on above: Performed By: #### C D:[id number] ####[address] [address] UA pH 5.5 Normal 4.5 - 7.8 [facility] Comment on above: Performed By: #### C D:[id number] ####[place] [address] [place] [address] UA Spec Grav 1.016 Normal 1.003-1.035 [facility] Comment on above: Performed By: #### C D:[id number] ####[place] [address] [place] [address] ACETAMINOPHENon 01-07-2024 Acetaminophen [Mass/Vol] ug/mL Low 10.0-30.0 [facility] Comment on above: Result Comment: Refe rence ranges are for therapeutic limits. Performed By: #### C ANA DAVIS, 3298-7, 4024-6, 5643-2 #### [facility] ([id number]) [address] [place] [address] #### 53345-3 #### [facility] ([id number]) [address] [place] [address], [address] [place] [address] BASIC METABOLIC PANLon 01-06 Anion gap [Moles/Vol] 6 mmol/L Normal 5-15 [facility] Comment on above: Performed By: #### C ANA DAVIS, 3298-7, 4024-6, 5643-2 #### [facility] ([id number]) [address] [place] [address] #### 65763-3 #### [facility] ([id number]) [address] [place] [address], [address] [place] [address] Calcium [Mass/Vol] 9.1 mg/dL Normal 8.5-10.5 [facility] Comment on above: Performed By: #### C ANA DAVIS, 3298-7, 4024-6, 5643-2 #### [facility] ([id number]) [address] [place] [address] #### 53566-5 #### [facility] ([id number]) [address], [address] [place] [address] Chloride [Moles/Vol] 106 mmol/L Normal 98-109 [facility] Comment on above: Performed By: #### C BCA, BMP, 3298-7, 4024-6, 5643-2 #### [facility] ([id number]) [address] [place] [address] #### 98239-0 #### [facility] ([id number]) [address] [facility] [address], [address] [place] [address] CO2 [Moles/Vol] 27 mmol/L Normal 22-32 [facility] Comment on above: Performed By: #### C BCA, BMP, 3298-7, 4024-6, 5643-2 #### [facility] ([id number]) [address] [place] [address] #### 73756-4 #### [facility] ([id number]) [address], [address] [place] [address] Creatinine [Mass/Vol] 0.82 mg/dL Normal 0.60-1.30 [facility] Comment on above: Result Comment: METH OD TRACEABLE TO IDMS STANDARD Performed By: #### C BCA, BMP, 3298-7, 4024-6, 5643-2 #### [facility] ([id number]) [address] [place] [address] #### 76911-3 #### [facility] ([id number]) [address], [address] [place] [address] eGFR (CKD-EPI) NON-RACE DEPENDENT >90 Normal >59 [facility] Comment on above: Result Comment: Reported eGFR is based on the CKD-EPI 2020 equation that does not use a race coefficient. Performed By: #### C BCA, BMP, 3298-7, 4024-6, 5643-2 #### [facility] ([id number]) [address] [place] [address] #### 04407-9 #### [facility] ([id number]) [address] [place] [address], [address] [place] [address] Glucose [Mass/Vol] 96 mg/dL Normal 65-99 [facility] Comment on above: Performed By: #### C BCA, BMP, 3298-7, 4024-6, 5643-2 #### [facility] ([id number]) [address] [place] [address] #### 22626-6 #### [facility] ([id number]) [address] [place] [address], [facility] [address] [place] [address] Potassium [Moles/Vol] 4.2 mmol/L Normal 3.5-5.0 [facility] Comment on above: Performed By: #### C BCA, BMP, 3298-7, 4024-6, 5643-2 #### [facility] ([id number]) [address] [place] [address] #### 76413-8 #### [facility] ([id number]) [address] [place] [address] Sodium [Moles/Vol] 139 mmol/L Normal 134-146 [facility] Comment on above: Performed By: #### C BCA, BMP, 3298-7, 4024-6, 5643-2 #### [facility] ([id number]) [address] [place] [address] #### 04985-0 #### [facility] ([id number]) [address] [place] [address], [address] [place] [address] Urea nitrogen [Mass/Vol] 16 mg/dL Normal 5-23 [facility] Comment on above: Performed By: #### C BCA, BMP, 3298-7, 4024-6, 5643-2 #### [facility] ([id number]) [address] [place] [address] #### 16305-0 #### [facility] ([id number]) [address] [place] [address] [address] [place] [address] CBC AND AUTO DIFFon 01-07-20 24 ABSOLUTE BASOPHIL 0.1 X10E9/L Normal 0.0-0.2 [facility] Comment on above: Performed By: #### ANA Sheth BCA, 3298-7, 4024-6, 5643-2 #### [facility] ([id number]) [address] [place] [address] #### 11671-3 #### [facility] ([id number]) [address] [place] [address] ABSOLUTE NEUTROPHIL 4.4 X10E9/L Normal 1.5-6.6 [facility] Comment on above: Performed By: #### ANA Sheth BCA, 3298-7, 4024-6, 5643-2 #### [facility] ([id number]) [address] [place] [address] #### 36657-1 #### [facility] ([id number]) [address] [place] [address] Basophils/100 WBC (Bld) 1.3 % Normal [facility] Comment on above: Performed By: #### ANA Sheth BCA, 3298-7, 4024-6, 5643-2 #### [facility] ([id number]) [address] [place] [address] #### 32799-4 #### [facility] ([id number]) [address] [place] [address] Eosinophils (Bld) [#/Vol] 0.2 10*3/uL Normal 0.0-0.4 [facility] Comment on above: Performed By: #### Domenic DAVIS, BMP, 3298-7, 4024-6, 5643-2 #### [facility] ([id number]) [address] [place] [address] #### 22071-7 #### [facility] ([id number]) [address] [place] [address] Eosinophils/100 WBC (Bld) 2.9 % Normal [facility] Comment on above: Performed By: #### ANA Sheth BCA, 3298-7, 4024-6, 5643-2 #### [facility] ([id number]) [address] [place] [address] #### 66350-4 #### [facility] ([id number]) [address] [place] [address] Erythrocyte distribution width (RBC) [Ratio] 13.3 % Normal 11.5-15.0 [facility] Comment on above: Performed By: #### ANA Sheth BCA, 3298-7, 4024-6, 5643-2 #### [facility] ([id number]) [address] [place] [address] #### 02471-0 #### [facility] ([id number]) [address] [place] [address] Hematocrit (Bld) [Volume fraction] 43.5 % Normal 39-49 [facility] Comment on above: Performed By: #### ANA Sheth BCA, 3298-7, 4024-6, 5643-2 #### [facility] ([id number]) [address] [place] [address] #### 50251-7 #### [facility] ([id number]) [address] [place] [address] Hemoglobin (Bld) [Mass/Vol] 15.1 g/dL Normal 13.0-17.0 [facility] Comment on above: Performed By: #### ANA Sheth BCA, 3298-7, 4024-6, 5643-2 #### [facility] ([id number]) [address] [place] [address] #### 05674-7 #### [facility] ([id number]) [address] [facility], [address] [place] [address] Lymphocytes (Bld) [#/Vol] 2.1 10*3/uL Normal 1.0-3.5 [facility] Comment on above: Performed By: #### C BCA, BMP, 3298-7, 4024-6, 5643-2 #### [facility] ([id number]) [address] [place] [address] #### 34630-4 #### [facility] ([id number]) [address] [place] [address], [address] [address] Lymphocytes/100 WBC (Bld) 27.5 % Normal [facility] Comment on above: Performed By: #### C BCA, BMP, 329-7, 4023-6, 5643-2 #### [facility] ([id number]) [address] [place] [address] #### 87610-2 #### [facility] ([id number]) [address] [facility], [address] [address] MCH (RBC) [Entitic mass] 30.9 pg Normal 27-34 [facility] Comment on above: Performed By: #### C BCA, BMP, 329-7, 4023-6, 5643-2 #### [facility] ([id number]) [address] [place] [address] #### 32305-4 #### [facility] ([id number]) [address] [facility], [address] [place] [address] MCHC (RBC) [Mass/Vol] 34.7 g/dL Normal 32-36 [facility] Comment on above: Performed By: #### C BCA, BMP, 329-7, 4-6, 5643-2 #### [facility] ([id number]) [address] [place] [address] #### 87434-8 #### [facility] ([id number]) [address] [facility], [address] [place] [address] MCV (RBC) [Entitic vol] 89 fL Normal 80-100 [facility] Comment on above: Performed By: #### C BCA, BMP, 8-7, 4024-6, 5643-2 #### [facility] ([id number]) [address] [place] [address] #### 01776-8 #### [facility] ([id number]) [address] [facility], [address] [place] [address] Monocytes (Bld) [#/Vol] 0.9 10*3/uL Normal 0-0.9 [facility] Comment on above: Performed By: #### C BCA, BMP, 3297-7, 402-6, 5643-2 #### [facility] ([id number]) [address] [place] [address] #### 50945-7 #### [facility] ([id number]) [address] [facility], [address] [place] [address] Monocytes/100 WBC (Bld) 11.3 % Normal [facility] Comment on above: Performed By: #### C BCA, BMP, 3297-7, 4023-6, 5643-2 #### [facility] ([id number]) [address] [place] [address] #### 28571-4 #### [facility] ([id number]) [address] [facility], [address] [place] [address] Neutrophils/100 WBC (Bld) 57.0 % Normal [facility] Comment on above: Performed By: #### C BCA, BMP, 329-7, 4024-6, 5643-2 #### [facility] ([id number]) [address] [place] [address] #### 06460-8 #### [facility] ([id number]) [address] [place] [address], [facility] [address] [place] [address] Platelet mean volume (Bld) [Entitic vol] 7.8 fL Normal 7-12 [facility] Comment on above: Performed By: #### C ANA DAVIS, 3298-7, 4024-6, 5643-2 #### [facility] ([id number]) [address] [place] [address] #### 07930-3 #### [facility] ([id number]) [address] [place] [address] Platelets (Bld) [#/Vol] 246 10*3/uL Normal 150-450 [facility] Comment on above: Performed By: #### ANA Sheth BCA, 3298-7, 4024-6, 5643-2 #### [facility] ([id number]) [address] [place] [address] #### 92912-4 #### [facility] ([id number]) [address] [place] [address], [facility] [address] [place] [address] RBC COUNT 4.89 X10E12/L Normal 4.10-5.70 [facility] Comment on above: Performed By: #### ANA Sheth BCA, 3298-7, 4024-6, 5643-2 #### [facility] ([id number]) [address] [place] [address] #### 75536-6 #### [facility] ([id number]) [address] [place] [address] WBC (Bld) [#/Vol] 7.7 10*3/uL Normal 4.0-11.0 [facility] Comment on above: Performed By: #### ANA Sheth BCA, 3298-7, 4024-6, 5643-2 #### [facility] ([id number]) [address] [place] [address] #### 80457-5 #### [facility] ([id number]) [address] [place] [address], [address] [place] [address] DRUG SCREEN, URINEon 024 AMPHETAMINE/METHAMP Negative Normal [facility] Comment on above: Result Comment: AMPH /METH screening cut off = 1000 ng/mL Performed By: #### D OLMEDO #### [facility] ([id number]) [address] [place] [address] BARBITURATES Negative Normal NEG [facility] Comment on above: Result Comment: Yenifer iturates screening cut off value = 200 ng/mL Performed By: #### D OLMEDO #### [facility] ([id number]) [address] [place] [address] BENZODIAZEPINES Positive Abnormal NEG [facility] Comment on above: Result Comment: Conf irmation available upon request. Benzodiazepines screening cut off value = 200 ng/mL Performed By: #### D OLMEDO #### [facility] ([id number]) [address] [place] [address] CANNABINOIDS Positive Abnormal NEG [facility] Comment on above: Result Comment: Conf irmation available upon request. Cannabinoids/THC screening cut off value = 50 ng/mL Performed By: #### D OLMEDO #### [facility] ([id number]) [address] [place] [address] COCAINE METABOLITE Negative Normal NEG [facility] Comment on above: Result Comment: Coca ine screening cut off value = 300 ng/mL Performed By: #### D OLMEDO #### [facility] ([id number]) [address] [place] [address] ECSTASY Negative Normal NEG [facility] Comment on above: Result Comment: Ecst asy screening cut off value = 500 ng/mL This report is intended for use in clinical monitoring or management of patients. Performed By: #### D OLMEDO #### [facility] ([id number]) [facility] [place] [address] METHADONE Negative Normal NEG [facility] Comment on above: Result Comment: Meth adone screening cut off value = 300 ng/mL. Performed By: #### D OLMEDO #### [facility] ([id number]) [facility] [place] [address] OPIATES Negative Normal NEG [facility] Comment on above: Result Comment: Opia rolando screening cut off value = 300 ng/mL NOTE: This test is used for the detection of codeine, hydrocodone (>1000 ng/mL), morphine and hydromorphone (>900 ng/mL) in urine. Performed By: #### D OLMEDO #### [facility] ([id number]) [facility] [place] [address] OXYCODONE Negative Normal NEG [facility] Comment on above: Result Comment: Oxyc odone screening cut off value = 300 ng/mL NOTE: This test is used for the detection of oxycodone and oxymorphone in urine. Performed By: #### D OLMEDO #### [facility] ([id number]) [address] [place] [address] PHENCYCLIDINE Negative Normal NEG [facility] Comment on above: Result Comment: Phen cyclidine screening cut off value = 25 ng/mL Performed By: #### D OLMEDO #### [facility] ([id number]) [address] [place] [address] Ethanol [Mass/Vol]on 024 ETHANOL 0.09 g/dL High 0.00-0.08 [facility] Comment on above: Result Comment: This report is intended for use in clinical monitoring or management of patients. Performed By: #### C SUSAN, BMP, 3298-7, 4024-6, 5643-2 #### [facility] ([id number]) [address] [place] [address] #### 61982-4 #### [facility] ([id number]) [address] [place] [address], [address] [place] [address] HGB A1C (GLYCO-HGB)on 2023 Glucose [Mass/Vol] 103 mg/dL Normal [facility] Comment on above: Performed By: #### C ANA DAVIS, 3298-7, 4024-6, 5643-2 #### [facility] ([id number]) [address] [place] [address] #### 99947-2 #### [facility] ([id number]) [address] [place] [address], [facility] [address] [place] [address] HbA1c (Bld) [Mass fraction] 5.2 % Normal 4.4-5.6 [facility] Comment on above: Result Comment: NOTE ADA Guidelines Result HgbA1c Normal : less than 5.7 % Prediabetes : 5.7 % to 6.4 % Diabetes : > 6.4 % Use with caution in patients with abnormal hemoglobin variants as the half-life of red blood cells and in vivo glycation rates are affected. Performed By: #### C ANA DAVIS, 8-7, 4-6, 5643-2 #### [facility] ([id number]) [address] [place] [id number] #### [id number] #### [facility] ([id number]) [address] [place] [address], [address] [place] [address] Salicylates [Mass/Vol]on SALICYLATE <2.5 Normal 2.0-25.0 [facility] Comment on above: Result Comment: Refe rence ranges are for therapeutic limits. Performed By: #### C ANA DAVIS, 3298-7, 4024-6, 5643-2 #### [facility] ([id number]) [address] [place] [address] #### [id number] #### [facility] ([id number]) [address], [address] [place] [address] Tricyclic antidepressants [M ass/Vol]on 01-07-2024 TRICYCLICS Negative Normal NEG [facility] Comment on above: Performed By: #### C BCA, BMP, 3298-7, 4024-6, 5643-2 #### [facility] ([id number]) [facility] [place] [address] #### 84422-4 #### [facility] ([id number]) [address], [address] [place] [address] ACETAMINOPHENon 01-05-2024 Acetaminophen [Mass/Vol] ug/mL Normal 0.0-20.0 [facility] Comment on above: Performed By: #### A SAT, ANION, OSMOL, CBCWD, ETOHS, EGFR1, CMP, ACTM #### [employer] [address] [place] [address] ANION GAPon 01-05-2024 Anion gap [Moles/Vol] 14.0 mmol/L Normal 8.0-16.0 [facility] Comment on above: Result Comment: ANIO N GAP = Sodium -(Chloride + CO2) Performed By: #### A SAT, ANION, OSMOL, CBCWD, ETOHS, EGFR1, CMP, ACTM ####[employer] [place] [address] CALCULATED OSMOLALITYon 12-24 Osmolality [Osmolality] 277.4 mosm/kg Normal 275.0-300.0 [facility] Comment on above: Performed By: #### A SAT, ANION, OSMOL, CBCWD, ETOHS, EGFR1, CMP, ACTM ####[employer] [place] [address] CBC WITH DIFFERENTIALon 12-24 ABS BASOPHILS 0.1 thou/mm3 Normal 0.0-0.1 [facility] Comment on above: Performed By: #### A SAT, ANION, OSMOL, CBCWD, ETOHS, EGFR1, CMP, ACTM #### [employer] [facility] [address] [place] [address] ABS EOSINOPHILS 0.2 thou/mm3 Normal 0.0-0.4 [facility] Comment on above: Performed By: #### A SAT, ANION, OSMOL, CBCWD, ETOHS, EGFR1, CMP, ACTM #### [place] [address] ABS IMMATURE GRANS (IG) 0.02 thou/mm3 Normal 0.00-0.07 [facility] Comment on above: Performed By: #### A SAT, ANION, OSMOL, CBCWD, ETOHS, EGFR1, CMP, ACTM #### [place] [address] ABS LYMPHOCYTES 2.7 thou/mm3 Normal 1.0-4.8 [facility] Comment on above: Performed By: #### A SAT, ANION, OSMOL, CBCWD, ETOHS, EGFR1, CMP, ACTM #### [place] [address] ABS MONOCYTES 0.8 thou/mm3 Normal 0.4-1.3 [facility] Comment on above: Performed By: #### A SAT, ANION, OSMOL, CBCWD, ETOHS, EGFR1, CMP, ACTM #### [place] [address] ABS NEUTROPHILS 5.2 thou/mm3 Normal 1.8-7.7 [facility] Comment on above: Performed By: #### A SAT, ANION, OSMOL, CBCWD, ETOHS, EGFR1, CMP, ACTM #### [place] [address] Basophils/100 WBC (Bld) 1.2 % Normal [facility] Comment on above: Performed By: #### A SAT, ANION, OSMOL, CBCWD, ETOHS, EGFR1, CMP, ACTM #### [place] [address] Eosinophils/100 WBC (Bld) 2.2 % Normal [facility] Comment on above: Performed By: #### A SAT, ANION, OSMOL, CBCWD, ETOHS, EGFR1, CMP, ACTM #### [place] [address] Erythrocyte distribution width (RBC) [Ratio] 12.7 % Normal 11.5-14.5 [facility] Comment on above: Performed By: #### A SAT, ANION, OSMOL, CBCWD, ETOHS, EGFR1, CMP, ACTM #### [place] [address] Hematocrit (Bld) [Volume fraction] 47.5 % Normal 42.0-52.0 [facility] Comment on above: Performed By: #### A SAT, ANION, OSMOL, CBCWD, ETOHS, EGFR1, CMP, ACTM #### [place] [address] Hemoglobin (Bld) [Mass/Vol] 16.0 g/dL Normal 14.0-18.0 [facility] Comment on above: Performed By: #### A SAT, ANION, OSMOL, CBCWD, ETOHS, EGFR1, CMP, ACTM #### [place] [address] IMMATURE GRANS (IG) 0.2 % Normal [facility] Comment on above: Performed By: #### A SAT, ANION, OSMOL, CBCWD, ETOHS, EGFR1, CMP, ACTM #### [place] [address] Lymphocytes/100 WBC (Bld) 30.2 % Normal [facility] Comment on above: Performed By: #### A SAT, ANION, OSMOL, CBCWD, ETOHS, EGFR1, CMP, ACTM #### [place] [address] MCH (RBC) [Entitic mass] 30.8 pg Normal 26.0-33.0 [facility] Comment on above: Performed By: #### A SAT, ANION, OSMOL, CBCWD, ETOHS, EGFR1, CMP, ACTM #### [place] [address] MCHC (RBC) [Mass/Vol] 33.7 g/dL Normal 32.2-35.5 [facility] Comment on above: Performed By: #### A SAT, ANION, OSMOL, CBCWD, ETOHS, EGFR1, CMP, ACTM #### [address] [address] MCV (RBC) [Entitic vol] 91.5 fL Normal 80.0-94.0 [facility] Comment on above: Performed By: #### A SAT, ANION, OSMOL, CBCWD, ETOHS, EGFR1, CMP, ACTM #### [place] [address] Monocytes/100 WBC (Bld) 8.9 % Normal [facility] Comment on above: Performed By: #### A SAT, ANION, OSMOL, CBCWD, ETOHS, EGFR1, CMP, ACTM #### [place] [address] Neutrophils/100 WBC (Bld) 57.3 % Normal [facility] Comment on above: Performed By: #### A SAT, ANION, OSMOL, CBCWD, ETOHS, EGFR1, CMP, ACTM #### [place] [address] NRBC 0 /100 wbc Normal [facility] Comment on above: Performed By: #### A SAT, ANION, OSMOL, CBCWD, ETOHS, EGFR1, CMP, ACTM #### [address] [address] PLATELET 267 thou/mm3 Normal 130-400 [facility] Comment on above: Performed By: #### A SAT, ANION, OSMOL, CBCWD, ETOHS, EGFR1, CMP, ACTM #### [address] [address] Platelet mean volume (Bld) [Entitic vol] 9.6 fL Normal 9.4-12.4 [facility] Comment on above: Performed By: #### A SAT, ANION, OSMOL, CBCWD, ETOHS, EGFR1, CMP, ACTM #### [place] [address] RBC 5.19 mill/mm3 Normal 4.70-6.10 [facility] Comment on above: Performed By: #### A SAT, ANION, OSMOL, CBCWD, ETOHS, EGFR1, CMP, ACTM #### [address] [address] RDW-SD 42.8 fL Normal 35.0-45.0 [facility] Comment on above: Performed By: #### A SAT, ANION, OSMOL, CBCWD, ETOHS, EGFR1, CMP, ACTM #### [address] [address] WBC 9.0 thou/mm3 Normal 4.8-10.8 [facility] Comment on above: Performed By: #### A SAT, ANION, OSMOL, CBCWD, ETOHS, EGFR1, CMP, ACTM #### [address] [address] COMP. METABOLIC PANELon 12-24 Albumin [Mass/Vol] 4.4 g/dL Normal 3.5-5.1 [facility] Comment on above: Performed By: #### A SAT, ANION, OSMOL, CBCWD, ETOHS, EGFR1, CMP, ACTM #### [address] [address] ALP [Catalytic activity/Vol] 74 U/L Normal 38-126 [facility] Comment on above: Performed By: #### A SAT, ANION, OSMOL, CBCWD, ETOHS, EGFR1, CMP, ACTM #### [address] [address] ALT [Catalytic activity/Vol] 33 U/L Normal 11-66 [facility] Comment on above: Performed By: #### A SAT, ANION, OSMOL, CBCWD, ETOHS, EGFR1, CMP, ACTM #### [address] [address] AST [Catalytic activity/Vol] 26 U/L Normal 5-40 [facility] Comment on above: Performed By: #### A SAT, ANION, OSMOL, CBCWD, ETOHS, EGFR1, CMP, ACTM #### [address] [address] Bilirubin [Mass/Vol] 0.5 mg/dL Normal 0.3-1.2 [facility] Comment on above: Performed By: #### A SAT, ANION, OSMOL, CBCWD, ETOHS, EGFR1, CMP, ACTM #### [address] [address] Calcium [Mass/Vol] 9.7 mg/dL Normal 8.5-10.5 [facility] Comment on above: Performed By: #### A SAT, ANION, OSMOL, CBCWD, ETOHS, EGFR1, CMP, ACTM #### [address] [address] Chloride [Moles/Vol] 101 mmol/L Normal 98-111 [facility] Comment on above: Performed By: #### A SAT, ANION, OSMOL, CBCWD, ETOHS, EGFR1, CMP, ACTM #### [address] [address] CO2 [Moles/Vol] 23 mmol/L Normal 23-33 [facility] Comment on above: Performed By: #### A SAT, ANION, OSMOL, CBCWD, ETOHS, EGFR1, CMP, ACTM #### [address] [address] Creatinine [Mass/Vol] 0.8 mg/dL Normal 0.4-1.2 [facility] Comment on above: Performed By: #### A SAT, ANION, OSMOL, CBCWD, ETOHS, EGFR1, CMP, ACTM #### [address] [address] Glucose [Mass/Vol] 89 mg/dL Normal 70-108 [facility] Comment on above: Performed By: #### A SAT, ANION, OSMOL, CBCWD, ETOHS, EGFR1, CMP, ACTM #### [address] [address] Potassium [Moles/Vol] 4.2 mmol/L Normal 3.5-5.2 [facility] Comment on above: Result Comment: Low level specimen hemolysis is present as indicated by the interference level index on the Aldair analyzer. The reported K+ level may be falsely increased. If clinically warranted, recollection of the specimen is suggested. Performed By: #### A SAT, ANION, OSMOL, CBCWD, ETOHS, EGFR1, CMP, ACTM #### [facility] [address] [place] [address] Protein [Mass/Vol] 7.9 g/dL Normal 6.1-8.0 [facility] Comment on above: Performed By: #### A SAT, ANION, OSMOL, CBCWD, ETOHS, EGFR1, CMP, ACTM #### [facility] [address] [place] [address] Sodium [Moles/Vol] 138 mmol/L Normal 135-145 [facility] Comment on above: Performed By: #### A SAT, ANION, OSMOL, CBCWD, ETOHS, EGFR1, CMP, ACTM #### [facility] [address] [place] [address] Urea nitrogen [Mass/Vol] 19 mg/dL Normal 7-22 [facility] Comment on above: Performed By: #### A SAT, ANION, OSMOL, CBCWD, ETOHS, EGFR1, CMP, ACTM #### [facility] [address] [place] [address] DRUG ABUSE SCREENon 01-05-20 24 AMPHETAMINE/METHAMPH Negative Normal NEGATIVE [facility] Comment on above: Performed By: #### T OXPN ####[facility] [address] [place] [address] BARBITURATE Negative Normal NEGATIVE [facility] Comment on above: Performed By: #### T OXPN ####[facility] [address] [place] [address] Benzodiazepines Ql (U) Positive Normal NEGATIVE [facility] Comment on above: Performed By: #### T OXPN ####[facility] [address] [place] [address] Cannabinoids Screen Ql (U) Positive Normal NEGATIVE [facility] Comment on above: Performed By: #### T OXPN ####[facility] [address] [place] [address] COCAINE METABOLITE Negative Normal NEGATIVE [facility] Comment on above: Performed By: #### T OXPN ####[facility] [address] [place] [address] FENTANYL Negative Normal NEGATIVE [facility] Comment on above: Result Comment: A N [...] use only. Performed By: #### T OXPN ####[id number] [place] [address] Opiates Ql (U) Negative Normal NEGATIVE [facility] Comment on above: Performed By: #### T OXPN ####[address] [place] [address] OXYCODONE Negative Normal NEGATIVE [facility] Comment on above: Performed By: #### T OXPN ####[facility] [address] [place] [address] Phencyclidine Ql (U) Negative Normal NEGATIVE [facility] Comment on above: Performed By: #### T OXPN ####[facility] [address] [place] [address] ETHYL ALCOHOL BLOODon 2023 ETHYL ALCOHOL BLOOD < 0.01 Normal 0.00 [facility] Comment on above: Performed By: #### A SAT, ANION, OSMOL, CBCWD, ETOHS, EGFR1, CMP, ACTM #### [facility] [address] [place] [address] GFR, ESTIMATEDon 01-05-2024 GFR/1.73 sq M.predicted MDRD (S/P/Bld) [Vol rate/Area] mL/min/{1.73_m2} Normal >60 [facility] Comment on above: Result Comment: Yobani atric [...] ANION, OSMOL, CBCWD, ETOHS, EGFR1, CMP, ACTM ####[facility] [address] [place] [address] Inpatient Clinical Summaryon 01-05-2024 Inpatient Clinical Summary Normal [facility] SALICYLATEon 01-05-2024 SALICYLATE < 0.3 Low 2.0-10.0 [facility] Comment on above: Performed By: #### A SAT, ANION, OSMOL, CBCWD, ETOHS, EGFR1, CMP, ACTM #### [facility] [address] [place] [address] Progress Noteon 01-04-2024 Progress Note Pt was not present f or the morning exercise group. Attended 3/3 therapeutic group sessions. Electronically signed by Jessica Fair 01/04/24 13:30 EDT Normal [facility] Progress Note-Nurseon 2023 Progress Note-Nurse Normal [facility] Progress Note-Nurse Normal [facility] Progress Note-Nurseon 2023 Progress Note-Nurse Normal [facility] Progress Note-Nurse Normal [facility] Progress Note-Nurseon 2023 Progress Note-Nurse Normal [facility] Progress Note-Nurse Normal [facility] .Fentanyl Scrn wo Conf,Uron 01-01-2024 Ur Fentanyl Scrn Negative Normal NEG <1.0 [facility] Comment on above: Performed By: #### C [id number] ####[address] [address] Ur Fentanyl Scrn Qnt 0.65 ng/mL Normal <=0.99 [facility] Comment on above: Performed By: #### C [id number] ####[address] [address] .UA Microscp Aon 01-01-2024 UA RBC Quant 0 /HPF Normal 0-5 [facility] Comment on above: Performed By: #### . Urinalysis Microscopic Auto ####[address] [address] UA WBC Quant 0 /HPF Normal 0-5 [facility] Comment on above: Performed By: #### . Urinalysis Microscopic Auto ####[address] [address] .eGFRon 01-01-2024 GFR/1.73 sq M.predicted MDRD (S/P/Bld) [Vol rate/Area] mL/min/{1.73_m2} Normal >=60 [facility] Comment on above: Result Comment: [facility] Laboratories have implemented the eGFR calculation approach [...] = years Performed By: #### E GFR ####[address] [address] CBC w/ Diffon 01-01-2024 Erythrocyte distribution width (RBC) [Ratio] 13.1 % Normal 11.6-14.8 [facility] Comment on above: Performed By: #### C BC ####[address] [address] Hematocrit (Bld) [Volume fraction] 44.5 % Normal 41.0-53.0 [facility] Comment on above: Performed By: #### C BC ####[address] [address] Hemoglobin (Bld) [Mass/Vol] 15.4 g/dL Normal 13.5-17.5 [facility] Comment on above: Performed By: #### C BC ####[address] [address] MCH (RBC) [Entitic mass] 30.9 pg Normal 27.0-35.0 [facility] Comment on above: Performed By: #### C BC ####[place] [id number] MCHC 34.6 % Normal 31.0-37.0 [facility] Comment on above: Performed By: #### C BC ####[address] [address] MCV (RBC) [Entitic vol] 89.1 fL Normal 80.0-100.0 [facility] Comment on above: Performed By: #### C BC ####[address] [address] Platelet 249 x10*3/mcL Normal 150-450 [facility] Comment on above: Performed By: #### C BC ####[address] [address] Platelet mean volume (Bld) [Entitic vol] 7.7 fL Normal 6.7-10.6 [facility] Comment on above: Performed By: #### C BC ####[address] [address] RBC 5.00 x10*6/mcL Normal 4.30-5.80 [facility] Comment on above: Performed By: #### C BC ####[address] [address] WBC 6.5 x10*3/mcL Normal 4.5-11.0 [facility] Comment on above: Performed By: #### C BC ####[address] [address] CMPon 01-01-2024 Albumin [Mass/Vol] 3.7 g/dL Normal 3.2-4.9 [facility] Comment on above: Performed By: #### C OMP ####[address] [address] Albumin/Globulin [Mass ratio] 1.1 {ratio} Normal 1.1-2.2 [facility] Comment on above: Performed By: #### C OMP ####[address] [address] Alk Phos 49 IU/L Normal 32-91 [facility] Comment on above: Performed By: #### C OMP ####[address] [address] ALT [Catalytic activity/Vol] 22 U/L Normal 17-63 [facility] Comment on above: Performed By: #### C OMP ####[address] [address] Anion gap [Moles/Vol] 12 mmol/L Normal 7-17 [facility] Comment on above: Performed By: #### C OMP ####[address] [address] AST [Catalytic activity/Vol] 26 U/L Normal 15-41 [facility] Comment on above: Performed By: #### C OMP ####[address] [address] Bili Total 1.1 mg/dL Normal 0.3-1.2 [facility] Comment on above: Performed By: #### C OMP ####[address] [address] Calcium [Mass/Vol] 9.1 mg/dL Normal 8.5-10.3 [facility] Comment on above: Performed By: #### C OMP ####[address] [address] Chloride [Moles/Vol] 101 mmol/L Normal 98-110 [facility] Comment on above: Performed By: #### C OMP ####[address] [address] CO2 [Moles/Vol] 25 mmol/L Normal 22-32 [facility] Comment on above: Performed By: #### C OMP ####[address] [address] Creatinine [Mass/Vol] 0.92 mg/dL Normal 0.61-1.24 [facility] Comment on above: Performed By: #### C OMP ####[address] [address] Glucose [Mass/Vol] 100 mg/dL High 70-99 [facility] Comment on above: Performed By: #### C OMP ####[address] [address] Potassium [Moles/Vol] 4.0 mmol/L Normal 3.4-4.8 [facility] Comment on above: Performed By: #### C OMP ####[address] [address] Protein [Mass/Vol] 7.1 g/dL Normal 6.5-8.1 [facility] Comment on above: Performed By: #### C OMP ####[address] [address] Sodium [Moles/Vol] 134 mmol/L Normal 133-142 [facility] Comment on above: Performed By: #### C OMP ####[address] [address] Urea nitrogen [Mass/Vol] 16 mg/dL Normal 8-26 [facility] Comment on above: Performed By: #### C OMP ####[place] [address] Urea nitrogen/Creatinine [Mass ratio] 17.4 mg/mg Normal 10.0-20.0 [facility] Comment on above: Performed By: #### C OMP ####[place] [id number] COV19 Rapidon 01-01-2024 LAB ONLY Result Called? No Normal [facility] Comment on above: Performed By: #### C [id number] ####[place] [id number] Reason for Rapid Test COVID Exposure Normal [facility] Comment on above: Performed By: #### C [id number] ####[place] [id number] SARS-CoV-2 (COVID-19) RNA BRITTANY+probe Ql (Unsp spec) Negative Normal Negative [facility] Comment on above: Result Comment: The 2019 [...] respiratory tract infection. Performed By: #### C [id number] ####[address] [address] Diff Autoon 01-01-2024 Baso Absolute 0.1 x10*3/mcL Normal 0.0-0.2 [facility] Comment on above: Performed By: #### . Automated Diff ####[address] [address] Basophils/100 WBC (Bld) 0.9 % Normal 0.0-1.2 [facility] Comment on above: Performed By: #### . Automated Diff ####[address] [address] Eos Absolute 0.2 x10*3/mcL Normal 0.0-0.4 [facility] Comment on above: Performed By: #### . Automated Diff ####[address] [address] Eosinophils/100 WBC (Bld) 3.0 % Normal 0.0-6.1 [facility] Comment on above: Performed By: #### . Automated Diff ####[address] [address] Lymph Absolute 2.4 x10*3/mcL Normal 1.0-4.8 [facility] Comment on above: Performed By: #### . Automated Diff ####[address] [address] Lymphocytes/100 WBC (Bld) 36.7 % Normal 27.2-40.8 [facility] Comment on above: Performed By: #### . Automated Diff ####[address] [address] [place] Absolute 0.6 x10*3/mcL Normal 0.3-1.1 [facility] Comment on above: Performed By: #### . Automated Diff ####[address] [address] Monocytes/100 WBC (Bld) 9.8 % Normal 4.7-13.9 [facility] Comment on above: Performed By: #### . Automated Diff ####[address] [address] Neutro Absolute 3.2 x10*3/mcL Normal 1.8-7.7 [facility] Comment on above: Performed By: #### . Automated Diff ####[place] [address] Neutro Auto 49.6 % Normal 47.2-70.8 [facility] Comment on above: Performed By: #### . Automated Diff ####[place] [address] ED Clinical Summaryon 2023 ED Clinical Summary Normal [facility] ED Note-Physicianon 01-01-20 ED Note-Physician Normal [facility] Ethanolon 01-01-2024 Ethanol, Plasma <10 Normal <=9 [facility] Comment on above: Result Comment: To c onvert mg/dL to g/dL, divide result by 1,000. Legal limit of intoxication is 80 mg/dL (0.08 g/dL). Performed By: #### A LC ####[place] [address] Magnesiumon 01-01-2024 Magnesium [Mass/Vol] 2.1 mg/dL Normal 1.7-2.4 [facility] Comment on above: Performed By: #### M G ####[place] [address] Progress Note-Nurseon 2023 Progress Note-Nurse Normal [facility] UA w Culture if Indon 2023 Color (U) Light-Yellow Normal Yellow [facility] Comment on above: Performed By: #### U CI ####[place] [address] Ketones Ql (U) Negative Normal Negative [facility] Comment on above: Performed By: #### U CI ####[place] [address] UA Blood Negative Normal Negative [facility] Comment on above: Performed By: #### U CI ####[address] [place] [address] UA Clarity Clear Normal Clear [facility] Comment on above: Performed By: #### U CI ####[address] [address] UA Glucose Normal Normal Negative [facility] Comment on above: Performed By: #### U CI ####[address] [address] UA Leukocyte Esterase Negative Normal Negative [facility] Comment on above: Performed By: #### U CI ####[address] [address] UA Nitrite Negative Normal Negative [facility] Comment on above: Performed By: #### U CI ####[address] [address] UA pH 6.0 Normal 4.5 - 7.8 [facility] Comment on above: Performed By: #### U CI ####[address] [address] UA Protein Negative Normal Negative [facility] Comment on above: Performed By: #### U CI ####[address] [address] UA Source Clean Catch Normal [facility] Comment on above: Performed By: #### U CI ####[address] [address] UA Spec Grav 1.015 Normal 1.003-1.035 [facility] Comment on above: Performed By: #### U CI ####[address] [address] UA Urobilinogen Normal Normal 0.2 - 1.0 [facility] Comment on above: Performed By: #### U CI ####[address] [address] Urobilinogen (U) [Mass/Vol] Negative Normal Negative [facility] Comment on above: Performed By: #### U CI ####[address] [address] UDS Compon 01-01-2024 Creatinine [Mass/Vol] 70.8 mg/dL Normal [facility] Comment on above: Performed By: #### C [id number] ####[address] [address] Ur Amph Scrn Negative Normal NEG = <1000 [facility] Comment on above: Performed By: #### C [id number] ####[address] [address] Ur Yenifer Scrn Negative Normal NEG = <200 [facility] Comment on above: Performed By: #### C [id number] ####[address] [address] Ur Benzodia Scrn Positive Abnormal NEG = <200 [facility] Comment on above: Result Comment: This unconfirmed positive screening result is to be used for medical treatment purposes only. Unconfirmed screening results must not be used for non-medical purposes (e.g. employment testing, legal testing). Performed By: #### C [id number] ####[address] [address] Ur Cannab Scrn Positive Abnormal NEG = <50 [facility] Comment on above: Result Comment: This unconfirmed positive screening result is to be used for medical treatment purposes only. Unconfirmed screening results must not be used for non-medical purposes (e.g. employment testing, legal testing). Performed By: #### C [id number] ####[address] [address] Ur Cocaine Scrn Negative Normal NEG = <300 [facility] Comment on above: Performed By: #### C [id number] ####[address] [address] Ur Methadone Scn Negative Normal NEG = <300 [facility] Comment on above: Performed By: #### C [id number] ####[address] [address] [address] Ur Opiate Scrn Negative Normal NEG = <300 [facility] Comment on above: Performed By: #### C [id number] ####[address] [address] Ur Oxy Screen Negative Normal NEG = <100 [facility] Comment on above: Performed By: #### C [id number] ####[address] [address] Ur Oxy Scrn Qnt 0 ng/mL Normal <=99 [facility] Comment on above: Performed By: #### C [id number] ####[address] [address] Ur PCP Scrn Negative Normal NEG = <25 [facility] Comment on above: Performed By: #### C [id number] ####[address] [address] UA pH 6.0 Normal 4.5 - 7.8 [facility] Comment on above: Performed By: #### C [id number] ####[address] [address] UA Spec Grav 1.015 Normal 1.003-1.035 [facility] Comment on above: Performed By: #### C [id number] ####[address] [address] XR Chest 1 Viewon 01-01-2024 XR Chest 1 View Normal [facility] CBC with Diffon 12-26-2023 Abs. Basophil 0.03 k/uL Normal 0.00-0.20 [facility] Comment on above: Performed By: #### E DTOX, MG, CP, CDP #### [facility] [address] [place] [address] [facility] Home: Kael Tran MD Abs.Imm.Granulocyte 0.04 k/uL Normal 0.00-0.30 [facility] Comment on above: Performed By: #### E DTOX, MG, CP, CDP #### [facility] [address] [place] [address] [facility] Home: Kael Tran MD Abs.Neutrophil (Seg) 3.26 k/uL Normal 1.50-8.10 [facility] Comment on above: Performed By: #### E DTOX, MG, CP, CDP #### [address] [address] Caregiver Services Home: Kael Tran MD Basophils/100 WBC (Bld) 1 % Normal 0-2 [facility] Comment on above: Performed By: #### E DTOX, MG, CP, CDP #### [place] [address] Careg[facility] Services Home: Kael Tran MD Eosinophils (Bld) [#/Vol] 0.10 10*3/uL Normal 0.00-0.44 [facility] Comment on above: Performed By: #### E DTOX, MG, CP, CDP #### [place] [address] Careg[facility] Services Home: Kael Tran MD Eosinophils/100 WBC (Bld) 2 % Normal 1-4 [facility] Comment on above: Performed By: #### E DTOX, MG, CP, CDP #### [place] [address] Careg[facility] Services Home: Kael Tran MD Erythrocyte distribution width (RBC) [Ratio] 12.6 % Normal 11.8-14.4 [facility] Comment on above: Performed By: #### E DTOX, MG, CP, CDP #### [place] [address] Careg[facility] Services Home: Kael Tran MD Hematocrit (Bld) [Volume fraction] 46.4 % Normal 40.7-50.3 [facility] Comment on above: Performed By: #### E DTOX, MG, CP, CDP #### [address] [place] [address] Caregiver Services Home: Kael Tran MD Hemoglobin (Bld) [Mass/Vol] 15.7 g/dL Normal 13.0-17.0 [facility] Comment on above: Performed By: #### E DTOX, MG, CP, CDP #### [address] [address] Careg[facility] Services Home: Kael Tran MD Immature granulocytes/100 WBC (Bld) 1 % High 0 [facility] Comment on above: Performed By: #### E DTOX, MG, CP, CDP #### [address] [address] Careg[facility] Services Home: Kael Tran MD Lymphocytes (Bld) [#/Vol] 2.26 10*3/uL Normal 1.10-3.70 [facility] Comment on above: Performed By: #### E DTOX, MG, CP, CDP #### [address] [address] Careg[facility] Services Home: Kael Tran MD Lymphocytes/100 WBC (Bld) 37 % Normal 24-43 [facility] Comment on above: Performed By: #### E DTOX, MG, CP, CDP #### [address] [address] Careg[facility] Services Home: Kael Tran MD MCH (RBC) [Entitic mass] 30.1 pg Normal 25.2-33.5 [facility] Comment on above: Performed By: #### E DTOX, MG, CP, CDP #### [address] [address] Careg[facility] Services Home: Kael Tran MD MCHC (RBC) [Mass/Vol] 33.8 g/dL Normal 28.4-34.8 [facility] Comment on above: Performed By: #### E DTOX, MG, CP, CDP #### [address] [address] Caregiver Services Home: Kael Tran MD MCV (RBC) [Entitic vol] 88.9 fL Normal 82.6-102.9 [facility] Comment on above: Performed By: #### E DTOX, MG, CP, CDP #### [address] [address] Careg[facility] Services Home: Kael Tran MD Monocytes (Bld) [#/Vol] 0.44 10*3/uL Normal 0.10-1.20 [facility] Comment on above: Performed By: #### E DTOX, MG, CP, CDP #### [address] [address] Careg[facility] Services Home: Kael Tran MD Monocytes/100 WBC (Bld) 7 % Normal 3-12 [facility] Comment on above: Performed By: #### E DTOX, MG, CP, CDP #### [address] [address] Caregiver Services Home: Kael Tran MD Neutrophil (Seg) 52 % Normal 36-65 [facility] Comment on above: Performed By: #### E DTOX, MG, CP, CDP #### [address] [address] Caregiver Services Home: Kael Tran MD NRBC Automated 0.0 per 100 WBC Normal 0.0 [facility] Comment on above: Performed By: #### E DTOX, MG, CP, CDP #### [address] [address] Caregiver Services Home: Kael Tran MD Platelet mean volume (Bld) [Entitic vol] 10.3 fL Normal 8.1-13.5 [facility] Comment on above: Performed By: #### E DTOX, MG, CP, CDP #### [address] [address] Careg[facility] Home: Kael Tran MD Platelets (Bld) [#/Vol] 170 10*3/uL Normal 138-453 [facility] Comment on above: Performed By: #### E DTOX, MG, CP, CDP #### [facility] [employer] [address] [place] [address] Caregiver Services Home: Kael Tran MD RBC (Bld) [#/Vol] 5.22 10*6/uL Normal 4.21-5.77 [facility] Comment on above: Performed By: #### E DTOX, MG, CP, CDP #### [address] [address] Careg[facility] Home: Kael Tran MD WBC (Bld) [#/Vol] 6.1 10*3/uL Normal 3.5-11.3 [facility] Comment on above: Performed By: #### E DTOX, MG, CP, CDP #### [facility] [employer] [address] [place] [address] Careg[facility] Home: Kael Tran MD Comp Metabolic Pr/rfx MGon 0 - Albumin [Mass/Vol] 4.0 g/dL Normal 3.5-5.2 [facility] Comment on above: Performed By: #### E DTOX, MG, CP, CDP #### [facility] [employer] [address] [place] [address] Careg[facility] Home: Kael Tran MD Albumin/Glob Ratio 1.4 Normal 1.0-2.5 [facility] Comment on above: Performed By: #### E DTOX, MG, CP, CDP #### [facility] [employer] [address] [place] [address] Careg[facility] Home: Kael Tran MD Alkaline Phos 68 U/L Normal 40-129 [facility] Comment on above: Performed By: #### E DTOX, MG, CP, CDP #### [address] [address] Care[facility] Home: Kael Tran MD ALT [Catalytic activity/Vol] 17 U/L Normal 5-41 [facility] Comment on above: Performed By: #### E DTOX, MG, CP, CDP #### [address] [address] Careg[facility] Home: Kael Tran MD Anion gap [Moles/Vol] 13 mmol/L Normal 9-17 [facility] Comment on above: Performed By: #### E DTOX, MG, CP, CDP #### [address] [address] Careg[facility] Services Home: Kael Tran MD AST [Catalytic activity/Vol] 18 U/L Normal <40 [facility] Comment on above: Performed By: #### E DTOX, MG, CP, CDP #### [address] [address] Careg[facility] Services Home: Kael Tran MD Bilirubin [Mass/Vol] 0.6 mg/dL Normal 0.3-1.2 [facility] Comment on above: Performed By: #### E DTOX, MG, CP, CDP #### [address] [address] Careg[facility] Services Home: Kael Tran MD Calcium [Mass/Vol] 8.7 mg/dL Normal 8.6-10.4 [facility] Comment on above: Performed By: #### E DTOX, MG, CP, CDP #### [facility] [employer] [address] [place] [address] Careg[facility] Home: Kael Tran MD Chloride [Moles/Vol] 104 mmol/L Normal 98-107 [facility] Comment on above: Performed By: #### E DTOX, MG, CP, CDP #### [facility] [employer] [address] [place] [phone] Careg[facility] Home: Kael Tran MD CO2 [Moles/Vol] 19 mmol/L Low 20-31 [facility] Comment on above: Performed By: #### E DTOX, MG, CP, CDP #### [address] [address] Care[facility] Home: Kael Tran MD Creatinine [Mass/Vol] 0.7 mg/dL Normal 0.7-1.2 [facility] Comment on above: Performed By: #### E DTOX, MG, CP, CDP #### [address] [address] [facility] Home: Kael Tran MD GFR/1.73 sq M.predicted among non-blacks MDRD (S/P/Bld) [Vol rate/Area] mL/min/{1.73_m2} Normal >60 [facility] Comment on above: Result Comment: These [...] #### E DTOX, MG, CP, CDP #### [address] [address] [facility]: Kael Tran MD Glucose [Mass/Vol] 116 mg/dL High 70-99 [facility] Comment on above: Performed By: #### E DTOX, MG, CP, CDP #### [address] [address] Care[facility] Home: Kael Tran MD Potassium [Moles/Vol] 4.0 mmol/L Normal 3.7-5.3 [facility] Comment on above: Performed By: #### E DTOX, MG, CP, CDP #### [facility] [address] [place] [address] Careg[facility] Home: Kael Tran MD Protein [Mass/Vol] 6.9 g/dL Normal 6.4-8.3 [facility] Comment on above: Performed By: #### E DTOX, MG, CP, CDP #### [facility] [address] [place] [address] Care[facility] Home: Kael Tran MD Sodium [Moles/Vol] 136 mmol/L Normal 135-144 [facility] Comment on above: Performed By: #### E DTOX, MG, CP, CDP #### [facility] [address] [place] [address] Care[facility] Home: Kael Tran MD Urea nitrogen [Mass/Vol] 18 mg/dL Normal 6-20 [facility] Comment on above: Performed By: #### E DTOX, MG, CP, CDP #### [facility] [address] [place] [address] Careg[facility] Home: Kael Tran MD Drug Scr, Abuse, Uron 2023 Amphetamine(s),Ur Negative Normal NEG [facility] Comment on above: Result Comment: (Positive cutoff 1000 ng/mL) Performed By: #### E DTOX, MG, CP, CDP #### [facility] [address] [place] [address] Care[facility] Home: Kael Tran MD Barbiturate(s),Ur Negative Normal NEG [facility] Comment on above: Result Comment: (Positive cutoff 200 ng/mL) Performed By: #### E DTOX, MG, CP, CDP #### [facility] [address] [place] [address] Care[facility] Home: Kael Tran MD Benzodiazepine(s) Negative Normal NEG [facility] Comment on above: Result Comment: (Positive cutoff 200 ng/mL) Performed By: #### E DTOX, MG, CP, CDP #### [facility] [address] [place] [address] Careg[facility] Home: Kael Tran MD Cannabinoid(s),Ur Positive Abnormal NEG [facility] Comment on above: Result Comment: (Positive cutoff 50 ng/mL) Performed By: #### E DTOX, MG, CP, CDP #### [facility] [address] [place] [address] Careg[facility] Home: Kael Tran MD Cocaine Metabolite Negative Normal NEG [facility] Comment on above: Result Comment: (Positive cutoff 300 ng/mL) Performed By: #### E DTOX, MG, CP, CDP #### [facility] [address] [place] [address] [facility]: Kael Tran MD Fentanyl, Urine Negative Normal NEG [facility] Comment on above: Result Comment: (Positive cutoff 5 ng/ml) Performed By: #### E DTOX, MG, CP, CDP #### [facility] [address] [place] [address] [facility]: Kael Tran MD Interpretive Info Assay provides medic al screening only. The absence of expected drug(s) and/or Normal [facility] Comment on above: Result Comment: meta bolite(s) may indicate diluted or adulterated urine, limitations of testing or timing of collection. Testing for legal purposes should be confirmed by another method. To request confirmation of test result, please call the lab within 7 days of sample submission. Performed By: #### E DTOX, MG, CP, CDP #### [facility] [address] [place] [address] [facility]: Kael Tran MD Methadone Ql (U) Negative Normal NEG [facility] Comment on above: Result Comment: (Positive cutoff 300 ng/mL) Performed By: #### E DTOX, MG, CP, CDP #### [facility] [address] [place] [address] Care[facility]: Kael Tran MD Opiate(s), Ur Negative Normal NEG [facility] Comment on above: Result Comment: (Positive cutoff 300 ng/mL) Performed By: #### E DTOX, MG, CP, CDP #### [address] [address] Care[facility] Home: Kael Tran MD Oxycodone, Urine Negative Normal NEG [facility] Comment on above: Result Comment: (Positive cutoff 100 ng/mL) Performed By: #### E DTOX, MG, CP, CDP #### [address] [address] Care[facility] Home: Kael Tran MD Phencyclidine, Ur Negative Normal NEG [facility] Comment on above: Result Comment: (Positive cutoff 25 ng/mL) Performed By: #### E DTOX, MG, CP, CDP #### [facility] [employer] [address] [place] [address] Careg[facility] Home: Kael Tran MD Ethanol Alcoholon 12-26-2023 Ethanol [Mass/Vol] 12 mg/dL High <10 [facility] Comment on above: Performed By: #### E DTOX, MG, CP, CDP #### [facility] [employer] [address] [place] [address] Care[facility] Home: Kael Tran MD Ethanol percent 0.012 % High <0.010 [facility] Comment on above: Performed By: #### E DTOX, MG, CP, CDP #### [facility] [employer] [address] [place] [address] Caregiver Services Home: Kael Tran MD 30on 12-11-2023 30 Problem: [...] stop initially Outcome: Adequate for Discharge Normal [facility] 94on 12-11-2023 94 Group Topic: Activit y Therapy Group Date: 12/11/2023 Start Time: 1030 End Time: 1130 Facilitators: Maribell Hood BELT MACHINE OPERATOR Department: [facility] Recovery Number of Participants: 0 Group Focus: anxiety, check in, coping skills, depression, feeling awareness/expression, goals/reality orientation, leisure skills, and problem solving Treatment Modality: Interpersonal Therapy and Leisure Development Interventions utilized were active listening, leisure development, and support Purpose: enhance coping skills, explore maladaptive thinking, improve communication skills, increase insight or knowledge, and reinforce self-care Name: Daron Villarreal Date of : 1985 MR: [id number] Level of Participation: refused Progress: None Response: Pt. Actively refused integration into group with BELT MACHINE OPERATOR and peers at this time. Plan: Pt. Will be encouraged to attend therapeutic recreation interventions with the BELT MACHINE OPERATOR in the future. Patients Problems: Patient Active Problem List Diagnosis Alcohol abuse with withdrawal (CMS/HCC) GERD (gastroesophageal reflux disease) Alcohol dependence with withdrawal, uncomplicated ([facility]) Alcohol abuse ETOH abuse Normal [facility] DSon 12-11-2023 DS Discharge Date: 12/11 Time [...] sx. Patient was most recently seen at [facility] detox on 11/27/23. Patient was discharged to [place], and left after one week stating it [...] Memory focus seem adequate. Disposition: Go to [facility] Complete walk-in assessment at [facility] on 12/14/23 at 9:00am for outpatient substance use treatment. [address] [place], [place] [phone] Discharge Medications Your medication list CONTINUE taking [...] Medications These medications were sent to [facility] - [address] [place] [address] [address] [facility] [place] [address], [facility] [address] folic acid 1 mg tablet gabapentin 300 [...] the patient on the day of discharge. [facility] NURSNOTEon 12-11-2023 NURSNOTE Patient discharged h ome per cab. Patient verbalized understanding of discharge instructions. Patient medications given per imeds. [facility] NURSNOTE Patient pleasant and cooperative. Patient states slept well throughout the night. Patient is hopeful about discharge. Will continue to monitor patient safety and for withdrawal symptoms. [facility] NURSNOTE Patient sleeping. Vi sible rise and fall of chest. Patient slept well last night. [facility] 30on 12-10-2023 30 Problem: Substance A [...] able to stop initially Outcome: Progressing . [facility] 30 The patient is Moder ately [...] were able to stop initially Outcome: Progressing [facility] 94on 12-10-2023 94 Group Topic: Activit y Therapy Group Date: 12/10/2023 Start Time: 1530 End Time: 161 Facilitators: CHRIS Crow Department: [facility] Recovery Number of Participants: 0 Group Focus: [...] Daron Villarreal Date of : 1985 MR: [id number] Level of Participation: withdrawn Progress: None Response: Pt. Was withdrawn from group and remained isolated in their room. Plan: Pt. Will be encouraged to attend therapeutic recreation interventions with the BELT MACHINE OPERATOR in the future. Patients Problems: Patient Active Problem List Diagnosis Alcohol abuse with withdrawal (CMS/HCC) GERD (gastroesophageal reflux disease) Alcohol dependence with withdrawal, uncomplicated (CMS/HCC) Alcohol abuse ETOH abuse Normal [facility] 94 Group Topic: Relaxat ion Group Date: 12/10/2023 Start Time: 1330 End Time: 1430 Facilitators: Maribell Hood BELT MACHINE OPERATOR Department: [facility] Recovery Number of Participants: 0 Group Focus: [...] Daron Villarreal Date of : 1985 MR: [id number] Level of Participation: refused Progress: None Response: Pt. Actively refused integration into group with BELT MACHINE OPERATOR and peers at this time. Plan: Pt. Will be encouraged to attend therapeutic recreation interventions with the BELT MACHINE OPERATOR in the future. Patients Problems: Patient Active Problem List Diagnosis Alcohol abuse with withdrawal (CMS/HCC) GERD (gastroesophageal reflux disease) Alcohol dependence with withdrawal, uncomplicated (CMS/HCC) Alcohol abuse ETOH abuse Normal [facility] 94 Group Topic: Activit y Therapy Group Date: 12/10/2023 Start Time: 1030 End Time: 1115 Facilitators: Maribell Hood BELT MACHINE OPERATOR Department: [facility] Recovery Number of Participants: 1 Group Focus: [...] Daron Villarreal Date of : 1985 MR: [id number] Level of Participation: active Quality of Participation: attentive, cooperative, and engaged Interactions with others: supportive Mood/Affect: appropriate Progress: Moderate Response: Pt. Engaged in group alongside BELT MACHINE OPERATOR. Pt. Participated in group discussion about reflecting on family and friend relationships as well as new hobbies to engage in. Plan: Pt. Will be encouraged to continue attending therapeutic recreation interventions with the BELT MACHINE OPERATOR and peers while on the unit. Patients Problems: Patient Active Problem List Diagnosis Alcohol abuse with withdrawal (CMS/HCC) GERD (gastroesophageal reflux disease) Alcohol dependence with withdrawal, uncomplicated ([facility]/HCC) Alcohol abuse ETOH abuse [facility] NURSNOTEon 12-10-2023 NURSNOTE Evening meds given a long with PRN tylenol & gabapentin for body aches and vistaril for anxiety. Denies any other needs at this time. Normal [facility] 30on 12-09-2023 30 The patient is Moder [...] able to stop initially Outcome: Progressing Normal [facility] 94on 12-09-2023 94 Group Topic: Activit y Therapy Group Date: 12/09/2023 Start Time: 1829 End Time: 1926 Facilitators: KENISHA Bhardwaj Department: [facility] DR[facility] Number of Participants: 1 Group Focus: activity therapy Treatment Modality: Leisure Development Interventions utilized were group exercise Purpose: reinforce self-care Name: Daron Villarreal Date of : 1985 MR: [id number] Level of Participation: refused Patients Problems: Patient Active Problem List Diagnosis Alcohol abuse with withdrawal (CMS/HCC) GERD (gastroesophageal reflux disease) Alcohol dependence with withdrawal, uncomplicated (CMS/HCC) Alcohol abuse ETOH abuse Normal [facility] 94 Group Topic: Activit y Therapy Group Date: 12/09/2023 Start Time: 1330 End Time: 1530 Facilitators: CHRIS Crow Department: [facility] Recovery Number of Participants: 3 Group Focus: [...] Daron Villarreal Date of : 1985 MR: [id number] Level of Participation: withdrawn Progress: None Response: Pt. Was withdrawn from group and remained isolated in their room. Plan: Pt. Will be encouraged to attend therapeutic recreation interventions with the [facility] in the future. Patients Problems: Patient Active Problem List Diagnosis Alcohol abuse with withdrawal (CMS/HCC) GERD (gastroesophageal reflux disease) Alcohol dependence with withdrawal, uncomplicated (CMS/HCC) Alcohol abuse ETOH abuse Normal [facility] 94 Group Topic: Coping Skills Group Date: 12/09/2023 Start Time: 1030 End Time: 1130 Facilitators: CHRIS Crow Department: [facility] Recovery Number of Participants: 1 Group Focus: [...] Daron Villarreal Date of : 1985 MR: [id number] Level of Participation: active Quality of Participation: attentive, cooperative, and engaged Interactions with others: gave feedback Mood/Affect: appropriate Progress: Moderate Response: Pt. Engaged in group alongside BELT MACHINE OPERATOR. Pt. Participated in group discussion about identifying triggers and the use of coping skills for addiction. Plan: Pt. Will be encouraged to continue attending therapeutic recreation interventions with the BELT MACHINE OPERATOR and peers while on the unit. Patients Problems: Patient Active Problem List Diagnosis Alcohol abuse with withdrawal (CMS/HCC) GERD (gastroesophageal reflux disease) Alcohol dependence with withdrawal, uncomplicated (CMS/HCC) Alcohol abuse ETOH abuse [facility] 30on 12-08-2023 30 Problem: Substance A [...] Recommendations to address these barriers include education. [facility] 30 The patient is Moder ately [...] were able to stop initially Outcome: Progressing [facility] 94on 12-08-2023 94 Group Topic: Activit y Therapy Group Date: 12/08/2023 Start Time: 1530 End Time: 1615 Facilitators: Maribell Hood BELT MACHINE OPERATOR Department: [facility] Recovery Number of Participants: 2 Group Focus: abuse issues, check in, clarity of thought, communication, coping skills, feeling awareness/expression, healthy friendships, leisure skills, self-awareness, and self-esteem Treatment Modality: Leisure Development and Patient-Centered Therapy Interventions utilized were exploration, leisure development, and support Purpose: enhance coping skills, express feelings, improve communication skills, and increase insight or knowledge Name: Daron Villarreal Date of : 1985 MR: [id number] Level of Participation: withdrawn Progress: None Response: Pt. Was withdrawn from group and remained isolated in their room. Plan: Pt. Will be encouraged to attend therapeutic recreation interventions with the BELT MACHINE OPERATOR in the future. Patients Problems: Patient Active Problem List Diagnosis Alcohol abuse with withdrawal (CMS/HCC) GERD (gastroesophageal reflux disease) Alcohol dependence with withdrawal, uncomplicated (CMS/HCC) Alcohol abuse ETOH abuse [facility] 94 Group Topic: Activit y Therapy Group Date: 12/08/2023 Start Time: 1330 End Time: 1430 Facilitators: Maribell Hood BELT MACHINE OPERATOR Department: [facility] Recovery Number of Participants: 2 Group Focus: art therapy, check in, communication, concentration, coping skills, feeling awareness/expression, leisure skills, relaxation, and self-awareness Treatment Modality: Art Therapy and Leisure Development Interventions utilized were exploration, leisure development, and support Purpose: enhance coping skills, increase insight or knowledge, regain self-worth, and reinforce self-care Name: Daron Villarreal Date of : 1985 MR: [id number] Level of Participation: refused Progress: None Response: Pt. Actively refused integration into group with BELT MACHINE OPERATOR and peers at this time. Plan: Pt. Will be encouraged to attend therapeutic recreation interventions with the BELT MACHINE OPERATOR in the future. Patients Problems: Patient Active Problem List Diagnosis Alcohol abuse with withdrawal (CMS/HCC) GERD (gastroesophageal reflux disease) Alcohol dependence with withdrawal, uncomplicated ([facility]/HCC) Alcohol abuse ETOH abuse Normal [facility] 94 Group Topic: Activit y Therapy Group Date: 12/08/2023 Start Time: 1030 End Time: 1140 Facilitators: Maribell Hood BELT MACHINE OPERATOR Department: [facility] Recovery Number of Participants: 4 Group Focus: [...] Daron Villarreal Date of : 1985 MR: [id number] Level of Participation: refused Progress: None Response: Pt. Actively refused integration into group with BELT MACHINE OPERATOR and peers at this time. Plan: Pt. Will be encouraged to attend therapeutic recreation interventions with the BELT MACHINE OPERATOR in the future. Patients Problems: Patient Active Problem List Diagnosis Alcohol abuse with withdrawal (CMS/HCC) GERD (gastroesophageal reflux disease) Alcohol dependence with withdrawal, uncomplicated ([facility]) Alcohol abuse ETOH abuse Normal [facility] CONSULTon 12-08-2023 CONSULT ------ -- Attestation signed by Reyna Bueno MD at 12/09/2023 2:17 PM I did not personally examine the patient. I discussed the case with the resident/fellow Dr Lira. -- GIM Inpatient Consult Note Patient - Daron Villarreal Age - 38 y.o. - 1985 [facility] # - [id number] Date of Admission - 12/07/2023 1:53 PM Reason for Consult Detox clearance History of Present Illness Daron Villarreal is a 38 y.o. male with history of anxiety, depression and alcohol abuse presenting to detox for alcohol withdrawal sx. Patient was most recently seen at [facility] detox on 11/27/23. Patient was discharged to [place], and left after one week stating it [...] past medical history of Addiction to drug ([facility]), Alcohol abuse, Alcoholism ([facility]), Anxiety, Depression, and Withdrawal symptoms, alcohol ([facility]). Past Surgical History: Patient has a [...] Chauhan MD pro (more content not included)... [facility] HPon 12-08-2023 HP SUBJECTIVE: Daron Villarreal is a 38 y.o. male admitted 12/07/2023 to detox for alcohol withdrawal. Attending Physician at the Time of Consult: Severiano Chauhan MD History of Present Illness: Daron Villarreal is a 38 y/o male with pmhx of anxiety, depression and alcohol abuse presenting to detox for alcohol withdrawal sx. Patient was most recently seen at [facility] detox on 11/27/23. Patient was discharged to [place], and left after one week stating it [...] History: Inpatient Hx: Yes, previously treated at [facility] Hx: Yes, [facility] in the past for mental health services Hx of Suicidal Ideation: Yes, was most recently hospitalized at [facility] for depression Hx of Suicide Attempts: Denies [...] brother . Social History Born and Raised: [place], [place] Housing: Housed Employment: Unemployed Educational Level: [...] Bilirubin, Di (more content not included)... Normal [facility] NURSNOTEon 12-08-2023 NURSNOTE Evening meds given a long with PRN vistaril for anxiety. Denies any other needs at this time. Normal [facility] NURSNOTE Patient sleeping. Wo ke up to obtain vital signs and do assessment. Patient complains of mild anxiety. Will give PRNs. Denies any other needs at this time. Normal [facility] NURSNOTE Patient states he is anxious, has body aches, and is restless. Patient compliant with medication and assessment. Normal [facility] NURSNOTE Patient resting in b ed quietly. Denies any needs this morning. Slept well last night. Normal [facility] 30on 12-07-2023 30 Problem: Substance A buse [...] to address these barriers include education. Normal [facility] ACETAMINOPHEN LEVELon 2023 ACETAMINOPHEN (UG/ML) IN SER/PLAS <10 Low 10-30 [facility] Comment on above: Performed By: #### L [id number] #### [facility] ([facility]) [address] [place] [address] BASIC METABOLIC PANELon 11-26 Anion gap [Moles/Vol] 9 mmol/L Normal 7-20 [place] Comment on above: Performed By: #### L [id number] #### [facility] ([facility] [address] [place] [address] Calcium [Mass/Vol] 9.1 mg/dL Normal 8.6-10.3 [facility] Comment on above: Performed By: #### L [id number] #### [facility] (BEAK[facility]) [address] [place] [address] Chloride [Moles/Vol] 104 mmol/L Normal 98-107 [facility] Comment on above: Performed By: #### L [id number] #### [facility] ([facility]) [address] [place] [address] CO2 [Moles/Vol] 26 mmol/L Normal 21-31 [facility] Comment on above: Performed By: #### L [id number] #### [facility] ([facility]) [address] [place] [address] Creatinine [Mass/Vol] 0.76 mg/dL Normal 0.70-1.30 [place] Comment on above: Performed By: #### L [id number] #### [facility] ([facility]) [address] [place] [address] GLOMERULAR FILTRATION RATE ML/MIN/1.73 SQ M.PREDICTED 117.3 mL/min/1.73m*2 Normal >60.0 [facility] Comment on above: Result Comment: The [facility]???s estimated glomerular filtration rate (eGFR) will no [...] individuals. Performed By: #### L [id number] #### [facility] ([facility]) [address] [place] [address] Glucose [Mass/Vol] 90 mg/dL Normal 70-100 [facility] Comment on above: Performed By: #### L [id number] #### [facility] ([facility]) [address] [place] [address] Potassium [Moles/Vol] 4.2 mmol/L Normal 3.5-5.1 [place] Comment on above: Performed By: #### L [id number] #### [facility] ([facility]) [address] [place] [address] Sodium [Moles/Vol] 135 mmol/L Low 136-145 [facility] Comment on above: Performed By: #### L [id number] #### [facility] ([facility]) [address] [place] [address] Urea nitrogen [Mass/Vol] 12 mg/dL Normal 7-25 [facility] Comment on above: Performed By: #### L [id number] #### [facility] ([facility]) [address] [place] [address] UREA NITROGEN/CREATININE (MASS RATIO) IN SER/PLAS 15.8 Normal [facility] Comment on above: Performed By: #### L [id number] #### [facility] ([facility]) [address] [place] [address] CBC WITH AUTO DIFFERENTIALon 12-07-2023 Basophils (Bld) [#/Vol] 0.12 10*3/uL Normal 0.00-0.20 [facility] Comment on above: Performed By: #### L [id number] #### [facility] ([facility]) [address] [place] [address] Basophils/100 WBC (Bld) 1.4 % High 0.0-1.0 [facility] Comment on above: Performed By: #### L [id number] #### [facility] ([facility]) [address] [place] [address] Eosinophils (Bld) [#/Vol] 0.28 10*3/uL Normal 0.00-0.50 [facility] Comment on above: Performed By: #### L [id number] #### [facility] ([facility]) [address] [place] [address] Eosinophils/100 WBC (Bld) 3.3 % Normal 0.0-6.0 [facility] Comment on above: Performed By: #### L [id number] #### [facility] ([facility]) [address] [place] [address] Erythrocyte distribution width (RBC) [Ratio] 13.0 % Normal 11.5-15.0 [facility] Comment on above: Performed By: #### L [id number] #### [facility] ([facility]) [address] [place] [address] ERYTHROCYTE MEAN CORPUSCULAR HEMOGLOBIN CONCENTRATION (G/DL) BY AUTOMATED 35.7 g/dL High 32.0-35.0 [facility] Comment on above: Performed By: #### L [id number] #### [facility] ([facility]) [address] [place] [address] Hematocrit (Bld) [Volume fraction] 46.2 % Normal 39.0-55.0 [facility] Comment on above: Performed By: #### L [id number] #### [facility] ([facility]) [address] [place] [address] Hemoglobin (Bld) [Mass/Vol] 16.5 g/dL Normal 13.0-17.0 [facility] Comment on above: Performed By: #### L [id number] #### [facility] ([facility]) [address] [place] [address] Immature granulocytes (Bld) [#/Vol] 0.02 10*3/uL Normal 0.00-0.20 [facility] Comment on above: Performed By: #### L [id number] #### [facility] ([facility]) [address] [place] [address] Immature granulocytes/100 WBC (Bld) 0.2 % Normal 0.0-1.0 [facility] Comment on above: Performed By: #### L [id number] #### [facility] ([facility]) [address] [place] [address] Lymphocytes (Bld) [#/Vol] 1.99 10*3/uL Normal 1.20-4.00 [facility] Comment on above: Performed By: #### L [id number] #### [facility] ([facility]) [address] [place] [address] Lymphocytes/100 WBC (Bld) 23.1 % Normal 20.0-45.0 [facility] Comment on above: Performed By: #### L [id number] #### [facility] ([facility]) [address] [place] [address] MCH (RBC) [Entitic mass] 31.4 pg Normal 27.0-33.0 [facility] Comment on above: Performed By: #### L [id number] #### [facility] ([facility]) [address] [place] [address] MCV (RBC) [Entitic vol] 88.0 fL Normal 82.0-98.0 [facility] Comment on above: Performed By: #### L [id number] #### [facility] ([facility]) [address] [place] [address] Monocytes (Bld) [#/Vol] 0.58 10*3/uL Normal 0.10-1.00 [facility] Comment on above: Performed By: #### L [id number] #### [facility] ([facility]) [address] [place] [address] Monocytes/100 WBC (Bld) 6.7 % Normal 5.0-12.0 [facility] Comment on above: Performed By: #### L [id number] #### [facility] ([facility]) [address] [place] [address] Neutrophils (Bld) [#/Vol] 5.61 10*3/uL Normal 1.60-7.60 [facility] Comment on above: Performed By: #### L [id number] #### [facility] ([facility]) [address] [place] [address] Neutrophils/100 WBC (Bld) 65.3 % Normal 40.0-72.0 [facility] Comment on above: Performed By: #### L [id number] #### [facility] ([facility]) [address] [place] [address] NRBC (PER 100 WBCS) BY AUTOMATED COUNT 0.0 % Normal 0 [facility] Comment on above: Performed By: #### L [id number] #### [facility] ([facility]) [address] [place] [address] PLATELETS (10*3/UL) IN BLOOD AUTOMATED COUNT 282 10*3/uL Normal 150-400 [facility] Comment on above: Performed By: #### L [id number] #### [facility] ([facility]) [address] [place] [address] RBC (Bld) [#/Vol] 5.25 10*6/uL Normal 4.20-5.70 [facility] Comment on above: Performed By: #### L [id number] #### [facility] ([facility]) [address] [place] [address] WBC (Bld) [#/Vol] 8.60 10*3/uL Normal 4.00-10.60 [facility] Comment on above: Performed By: #### L [id number] #### [facility] ([facility]) [address] [place] [address] EDNURSon 12-07-2023 EDNURS Mode of arrival (squ ad #, walk in, police, etc): Walk in Chief complaint(s): Detox, suicidal thoughts Arrival Note (brief scenario, treatment NON DESTRUCTIVE EVALUATION SPECIALIST, 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 Pt states that after he stopped drinking he began to feel suicidal. Pt denies any plan. Reports feeling lost . Pt states he had a recent inpatient stay at [facility] detox a few weeks ago . Pt states he tried to go to [place], but it was too big for me so I want to go somewhere like [place], somewhere smaller . Normal [facility] EDPROVon 12-07-2023 EDPROV HPI Chief Complaint Patient [...] he has been trying to stop drinking. [place] Coma Scale Score: 15 Patient History Past [...] Procedure Abnormality Status --------- ------ CBC auto differential[[id number]] Abnormal Final result Please view results for these tests on the individual orders. BASIC METABOLIC PANEL ETHANOL URINALYSIS TOXICOLOGY PANEL URINE ACETAMINOPHEN LEVEL SALICYLATE LEVEL TSH Diagnoses as of 12/09/23 0903 Psychiatric complaint Alcohol abuse Medical Decision Making Attestion Rodney Foster MD 12/09/23 0903 Normal [facility] ETHANOLon 12-07-2023 ETHANOL (MG/DL) IN SER/PLAS <10 Normal [facility] Comment on above: Performed By: #### L [id number] #### [facility] ([facility]) [address] [place] [address] ETHANOL CALCULATED (%) Normal [facility] Comment on above: Performed By: #### L [id number] #### [facility] ([facility]) [address] [place] [address] GAMMA GTon 12-07-2023 Amylase [Catalytic activity/Vol] 21 U/L Normal 9-64 [facility] Comment on above: Performed By: #### L [id number] #### [facility] ([facility]) [address] [place] [address] HEPATIC FUNCTION PANELon Albumin [Mass/Vol] 4.3 g/dL Normal 3.5-5.7 [facility] Comment on above: Performed By: #### L [id number] ####[facility] ([facility])[address] [place] [address] ALP [Catalytic activity/Vol] 52 U/L Normal 34-104 [facility] Comment on above: Performed By: #### L [id number] ####[facility] ([facility])[address] [place] [address] ALT [Catalytic activity/Vol] 17 U/L Normal 7-52 [facility] Comment on above: Performed By: #### L [id number] ####[facility] ([facility])[address] [place] [address] AST [Catalytic activity/Vol] 19 U/L Normal 13-39 [facility] Comment on above: Performed By: #### L [id number] ####[facility] ([facility])[address] [place] [address] Bilirubin [Mass/Vol] 1.3 mg/dL High 0.3-1.0 [facility] Comment on above: Performed By: #### L [id number] ####[facility] ([facility])[address] [place] [address] Magnesium [Mass/Vol] 0.2 mg/dL Normal 0-0.2 [facility] Comment on above: Performed By: #### L [id number] ####[facility] ([facility])[address] [place] [address] Protein [Mass/Vol] 6.9 g/dL Normal 6.0-8.3 [facility] Comment on above: Performed By: #### L [id number] ####[facility] ([facility])[address] [place] [address] MAGNESIUMon 12-07-2023 Magnesium [Mass/Vol] 2.0 mg/dL Normal 1.9-2.7 [facility] Comment on above: Performed By: #### L [id number] ####[facility] ([facility])[address] [place] [address] Magnesium [Mass/Vol] 1.9 mg/dL Normal 1.9-2.7 [facility] Comment on above: Performed By: #### L [id number] ####[facility] ([facility])[address] [place] [address] NURSNOTEon 12-07-2023 NURSNOTE Patient watching TV. Vital signs and assessment completed. Patient complains of anxiety and visible tremor noted. CIWA = 8. PRN vistaril and 1mg ativan given. Patient denies any other needs at this time. Normal [facility] NURSNOTE Patient resting in b ed watching TV. Denies all withdrawal symptoms. Appetite good, ate 100% of dinner. States I feel pretty good. Normal [facility] NURSNOTE Patient reports he i s here to withdraw from alcohol. Pt reports drinking 9-12 beers daily for the last week. Pt reports leaving [place] after 1 week because it was too big and it increased his anxiety. Pt reports his goal is to get back to [facility] where his family is, and where he [...] 30 mins ago in the ER. Normal [facility] PHOSPHORUSon 12-07-2023 Magnesium [Mass/Vol] 2.4 mg/dL Low 2.5-5.0 [facility] Comment on above: Performed By: #### L [id number] ####[facility] (AN[facility]BAL)[address] [place] [address] SALICYLATE LEVELon 4 SALICYLATES (MG/DL) IN SER/PLAS <2 Low 4-29 [facility] Comment on above: Performed By: #### L [id number] #### [facility] ([facility]) [address] [place] [address] TOXICOLOGY PANEL URINEon AMPHETAMINE+METHAMPHE TAMINE SCREEN (PRESENCE) IN URINE Negative Normal Negative [facility] Comment on above: Performed By: #### L [id number] ####[facility] ([facility])[address] [place] [address] BARBITURATES PRESENCE IN URINE BY SCREEN METHOD Negative Normal Negative [facility] Comment on above: Performed By: #### L [id number] ####[facility] ([facility] [place] [address] Benzodiazepines Ql (U) Negative Normal Negative [facility] Comment on above: Performed By: #### L [id number] ####[facility] ([facility])[address] [place] [address] CANNABINOID (PRESENCE) IN URINE BY SCREEN METHOD Positive Abnormal Negative [facility] Comment on above: Performed By: #### L [id number] ####[facility] ([facility])[address] [place] [address] Cocaine Ql (U) Negative Normal Negative [facility] Comment on above: Performed By: #### L [id number] ####[facility] ([facility])[address] [place] [address] METHADONE (PRESENCE) IN URINE BY SCREEN METHOD Negative Normal Negative [facility] Comment on above: Performed By: #### L [id number] ####[facility] ([facility])[address] [place] [address] OPIATES (PRESENCE) IN URINE BY SCREEN METHOD Negative Normal Negative [facility] Comment on above: Performed By: #### L [id number] ####[facility] ([facility])[address] [place] [address] PHENCYCLIDINE PRESENCE IN URINE BY SCREEN METHOD Negative Normal Negative [facility] Comment on above: Performed By: #### L [id number] ####[facility] ([facility])[address] [place] [address] Propoxyphene Screen Ql (U) Negative Normal Negative [facility] Comment on above: Performed By: #### L [id number] ####[facility] ([facility])[address] [place] [address] TRICYCLIC ANTIDEPRESSANTS (PRESENCE) IN URINE Negative Normal Negative [facility] Comment on above: Performed By: #### L [id number] ####[facility] ([facility])[address] [facility] [address] TSHon 12-07-2023 THYROTROPIN (MIU/L) IN SER/PLAS BY DETECTION LIMIT <= 0.05 MIU/L 2.64 mIU/L Normal 0.34-5.60 [facility] Comment on above: Performed By: #### L [id number] #### [facility] ([facility]) [address] [place] [address] URIC ACIDon 12-07-2023 Magnesium [Mass/Vol] 4.9 mg/dL Normal 4.4-7.6 [facility] Comment on above: Performed By: #### L [id number] ####[facility] ([facility])[address] [place] [address] URINALYSISon 12-07-2023 BILIRUBIN, TOTAL PRESENCE IN URINE Negative Normal Negative [facility] Comment on above: Order Comment: Micro scopics not performed on urines with negative chemical reactions unless requested on original order. Performed By: #### L [id number] #### [facility] ([facility]) [address] [place] [address] Clarity (U) Clear Normal Clear [facility] Comment on above: Order Comment: Micro scopics not performed on urines with negative chemical reactions unless requested on original order. Performed By: #### L [id number] #### [facility] ([facility]) [address] [place] [address] Color (U) Yellow Normal Yellow [facility] Comment on above: Order Comment: Micro scopics not performed on urines with negative chemical reactions unless requested on original order. Performed By: #### L [id number] #### [facility] ([facility]) [address] [place] [address] Glucose (U) [Mass/Vol] Negative Normal Negative [facility] Comment on above: Order Comment: Micro scopics not performed on urines with negative chemical reactions unless requested on original order. Performed By: #### L [id number] #### [facility] ([facility]) [address] [place] [address] HEMOGLOBIN PRESENCE IN URINE Negative Normal Negative [facility] Comment on above: Order Comment: Micro scopics not performed on urines with negative chemical reactions unless requested on original order. Performed By: #### L [id number] #### [facility] ([facility]) [address] [place] [address] Ketones Ql (U) Negative Normal Negative [facility] Comment on above: Order Comment: Micro scopics not performed on urines with negative chemical reactions unless requested on original order. Performed By: #### L [id number] #### [facility] ([facility]) [address] [place] [address] LEUKOCYTE ESTERASE PRESENCE IN URINE BY TEST STRIP Negative Normal Negative [facility] Comment on above: Order Comment: Micro scopics not performed on urines with negative chemical reactions unless requested on original order. Performed By: #### L [id number] #### [facility] ([facility]) [address] [place] [address] NITRITE PRESENCE IN URINE Negative Normal Negative [facility] Comment on above: Order Comment: Micro scopics not performed on urines with negative chemical reactions unless requested on original order. Performed By: #### L [id number] #### [facility] ([facility]) [address] [place] [address] pH (U) 5.0 [pH] Normal 5.0-8.0 [facility] [facility] Comment on above: Order Comment: Micro scopics not performed on urines with negative chemical reactions unless requested on original order. Performed By: #### L [id number] #### [facility] ([facility]) [address] [place] [address] Protein (U) [Mass/Vol] Negative Normal Negative [facility] Comment on above: Order Comment: Micro scopics not performed on urines with negative chemical reactions unless requested on original order. Performed By: #### L [id number] #### [facility] ([facility]) [address] [place] [address] Specific gravity (U) [Rel density] 1.016 Normal 1.015-1.020 [facility] Comment on above: Order Comment: Micro scopics not performed on urines with negative chemical reactions unless requested on original order. Performed By: #### L [id number] #### [facility] ([facility]) [address] [place] [address] 30on 11-27-2023 30 Problem: Substance A buse [...] stop initially Outcome: Adequate for Discharge Normal [facility] 30 The patient is Moder ately Stable - Low risk of patient condition declining or worsening The patient's goals for the shift include comfort The clinical goals for the shift include safety, comfort, and sleep Normal [facility] DSon 11-27-2023 DS Discharge Date: 2023 Time Spent with Patient: 31 minutes spent with patient, discussing discharge instructions, ordering medications, reviewing lab work, communicating with other healthcare professionals, documenting clinical information and the patient's follow-up plan. Chief Complaint: Alcohol abuse and withdrawal Consults: GIM History of Present Illness: Mr. Villarreal is a 38yo male presenting to [facility] detox to withdraw from alcohol. Notable last admission was to [facility] Detox in September of 2023, he was discharged to [facility] for outpatient substance use. He reports [...] Negative mg/dL Bilirubin, Urine Negative Negative Specific [place], Urine 1.017 1.015 - 1.020 Ketones, Urine [...] 0.00 - 0 (more content not included)... [facility] NURSNOTEon 11-27-2023 NURSNOTE Pt. Packed bags in r oom, given belongings from lock up bin. Discharge papers given. Medications will come from [facility] pharmacy, delivered to [facility]. Pt. Accompanied to main lobby where [employer] cab was to pick him up. [facility] NURSNOTE Patient slept 8 hour s through the night. Scheduled and PRN medications are helping. [facility] 30on 11-26-2023 30 The patient is [...] were able to stop initially Outcome: Progressing [facility] 30 The patient is Moder ately [...] able to stop initially Outcome: Progressing Normal [facility] 94on 11-26-2023 94 Group Topic: Activit y Therapy Group Date: 11/26/2023 Start Time: 1330 End Time: 1415 Facilitators: CHRIS Crow Department: [facility] Recovery Number of Participants: 1 Group Focus: [...] Daron Villarreal Date of : 1985 MR: [id number] Level of Participation: withdrawn Progress: None Response: Pt. Was withdrawn from group and remained isolated in their room. Plan: Pt. Will be encouraged to attend therapeutic recreation interventions with the BELT MACHINE OPERATOR in the future. Patients Problems: Patient Active Problem List Diagnosis Alcohol abuse with withdrawal (CMS/HCC) GERD (gastroesophageal reflux disease) Alcohol dependence with withdrawal, uncomplicated (CMS/HCC) [facility] 94 Group Topic: Relaxat ion Group Date: 11/26/2023 Start Time: 1030 End Time: 1130 Facilitators: CHRIS Crow Department: [facility] Recovery Number of Participants: 2 Group Focus: [...] Daron Villarreal Date of : 1985 MR: [id number] Level of Participation: refused Progress: None Response: Pt. Actively refused integration into group with BELT MACHINE OPERATOR and peers at this time. Plan: Pt. Will be encouraged to attend therapeutic recreation interventions with the BELT MACHINE OPERATOR in the future. Patients Problems: Patient Active Problem List Diagnosis Alcohol abuse with withdrawal (CMS/HCC) GERD (gastroesophageal reflux disease) Alcohol dependence with withdrawal, uncomplicated (CMS/HCC) [facility] NURSNOTEon 11-26-2023 NURSNOTE Patient resting in b ed in no acute distress, C/O anxiety, restless legs, abdomen rash discomfort, nicotine cravings, and insomnia. CIWA=2. Scheduled and PRN medications given. [facility] NURSNOTE Patient slept 8 hour s through the night. Scheduled and PRN medications are helping. [facility] NURSNOTE RN woke patient up t o check CIWA score and vital signs. CIWA=1. RN will continue to monitor. [facility] NURSNOTE CIWA=0. [facility] 30on 11-25-2023 30 The patient is [...] were able to stop initially Outcome: Progressing [facility] 30 The patient is Moder ately [...] able to stop initially Outcome: Progressing Normal [facility] 94on 11-25-2023 94 Group Topic: Craving s and Urges Group Date: 11/25/2023 Start Time: 1825 End Time: 1909 Facilitators: KENISHA Bhardwaj Department: [facility] DRIVER Number of Participants: 2 Group Focus: chemical dependency issues Treatment Modality: Patient-Centered Therapy Interventions utilized were exploration Purpose: relapse prevention strategies Name: Daron Villarreal Date of : 1985 MR: [id number] Level of Participation: refused Patients Problems: Patient Active Problem List Diagnosis Alcohol abuse with withdrawal (CMS/HCC) GERD (gastroesophageal reflux disease) Alcohol dependence with withdrawal, uncomplicated ([facility]/HCC) [facility] 94 Group Topic: Relapse Prevention Group Date: 11/25/2023 Start Time: 1330 End Time: 1425 Facilitators: CHRIS Crow Department: [facility] Recovery Number of Participants: 0 Group Focus: [...] Daron Villarreal Date of : 1985 MR: [id number] Level of Participation: withdrawn Progress: None Response: Pt. Was withdrawn from group and remained isolated in their room. Plan: Pt. Will be encouraged to attend therapeutic recreation interventions with the [facility] in the future. Patients Problems: Patient Active Problem List Diagnosis Alcohol abuse with withdrawal (CMS/HCC) GERD (gastroesophageal reflux disease) Alcohol dependence with withdrawal, uncomplicated (CMS/HCC) [facility] 94 Group Topic: Activit y Therapy Group Date: 11/25/2023 Start Time: 1030 End Time: 1115 Facilitators: CHRIS Crow Department: [facility] Recovery Number of Participants: 0 Group Focus: check in, clarity of thought, communication, concentration, coping skills, feeling awareness/expression, leisure skills, problem solving, and self-awareness Treatment Modality: Interpersonal Therapy and Leisure Development Interventions utilized were active listening, exploration, leisure development, and support Purpose: enhance coping skills, express feelings, increase insight or knowledge, and regain self-worth Name: Daron Villarreal Date of : 1985 MR: [id number] Level of Participation: refused Progress: None Response: Pt. Actively refused integration into group with BELT MACHINE OPERATOR and peers at this time. Plan: Pt. Will be encouraged to attend therapeutic recreation interventions with the BELT MACHINE OPERATOR in the future. Patients Problems: Patient Active Problem List Diagnosis Alcohol abuse with withdrawal ([facility]) GERD (gastroesophageal reflux disease) Alcohol dependence with withdrawal, uncomplicated ([facility]) Normal [facility] CONSULTon 11-25-2023 CONSULT Inpatient consult to Wound [...] of EtOH abuse, anxiety, depression presenting to [facility] for detox.Wound care was consulted for evaluation [...] past medical history of Addiction to drug ([facility]), Alcohol abuse, Alcoholism ([facility]), Anxiety, Depression, and Withdrawal symptoms, alcohol [...] We will follow episodically throughout stay. Normal [facility] CONSULT ------ -- Attestation signed by Kalpana [...] Villarreal Age - 38 [facility] 1985 [id number] Date of Admission - 11/24/2023 8:33 PM Reason for Consult Detox clearance History of Present Illness Daron Villarreal is a 38 y.o. male with pmh of EtOH abuse presenting to [facility] for detox. Patient states that he has [...] past medical history of Addiction to drug ([facility]), Alcohol abuse, Alcoholism ([facility]), Anxiety, Depression, and Withdrawal symptoms, alcohol ([facility]). Past Surgical History: Patient has a [...] 60 mg, 60 mg, oral, Daily, Wade Chauhna MD folic acid (Folvite) tablet 1 mg, [...] Chauhan MD (more content not included)... Normal [facility] HCV QUANTITATIVE TMAon 11-25 HCV QUANTITATIVE LOG IU/ML 5.51 Log10 IU/mL Normal [facility] Comment on above: Order Comment: The A ptima HCV Quant Dx assay is a real-time emergency preparedness coordinator-mediated amplification (TMA) test which has a dynamic [...] products. Performed By: #### L [id number] #### [facility] ([facility]) [address] [place] [address] HCV QUANTITATIVE TMA [id number] IU/mL Normal [facility] Comment on above: Order Comment: The A ptima HCV Quant Dx assay is a real-time emergency preparedness coordinator-mediated amplification (TMA) test which has a dynamic [...] products. Performed By: #### L [id number] #### [facility] ([facility]) [address] [place] [address] HCV TMA INTERP Detected Abnormal Not Detected [facility] Comment on above: Order Comment: The A ptima HCV Quant Dx assay is a real-time emergency preparedness coordinator-mediated amplification (TMA) test which has a dynamic [...] products. Performed By: #### L [id number] #### [facility] ([facility]) [address] [place] [address] HPon 11-25-2023 HP SUBJECTIVE: Daron Villarreal is a 38 y.o. male admitted 11/24/2023 to [facility] Detox for Alcohol Withdrawal. Attending Physician at the Time of Consult: Severiano Chauhan MD History of Present Illness: Mr. Villarreal is a 38yo male presenting to [facility] detox to withdraw from alcohol. Notable last admission was to [facility] Detox in September of 2023, he was discharged to [facility] for outpatient substance use. He reports [...] History: Inpatient Hx: Yes, previously treated at [facility] Hx: Yes, [facility] in the past for mental health services Hx of Suicidal Ideation: Yes, reason for recent hospitalization at [facility] Hx of Suicide Attempts: Denies Hx of [...] friend Social History Born and Raised: [place] Housing: Reports living with several friends, no [...] 0.70 - (more content not included)... Normal [facility] HP This report has been cancelled. [facility] NURSNOTEon 11-25-2023 NURSNOTE Patient resting in b ed in no acute distress, C/O moderate anxiety, restless legs, and insomnia. CIWA=5. Scheduled and PRN medications given. [facility] NURSNOTE Patient swab came ba ck negative for shingles, GIM paged and notified that patient reports he did not complete the oral clindamycin that was ordered at . . [facility] resident states that they are going to stick with the topical ATB for now. Normal [facility] NURSNOTE Pt was asleep at carmen nge of shift. When woke he c/o a mild headache and anxiety. PRNs given. [facility] 30on 11-24-2023 30 Problem: Substance A [...] able to stop initially Outcome: Not Progressing [facility] ACETAMINOPHEN LEVELon 2023 ACETAMINOPHEN (UG/ML) IN SER/PLAS <10 Low 10-30 [facility] Comment on above: Performed By: #### L [id number] ####[facility] ([facility]ER)[address] [place] [address] BASIC METABOLIC PANELon 10-28 Anion gap [Moles/Vol] 11 mmol/L Normal 7-20 [place] Comment on above: Performed By: #### L [id number] ####[facility] ([facility])[address] [place] [address] Calcium [Mass/Vol] 9.3 mg/dL Normal 8.6-10.3 [facility] Comment on above: Performed By: #### L [id number] ####[facility] ([facility]ER)[address] [place] [address] Chloride [Moles/Vol] 104 mmol/L Normal 98-107 [facility] Comment on above: Performed By: #### L [id number] ####[facility] ([facility]AKER)[address] [place] [address] CO2 [Moles/Vol] 25 mmol/L Normal 21-31 [facility] Comment on above: Performed By: #### L [id number] ####[facility] ([facility]ER)[address] [place] [address] Creatinine [Mass/Vol] 0.80 mg/dL Normal 0.70-1.30 [place] Comment on above: Performed By: #### L [id number] ####[facility] [place] [address] GLOMERULAR FILTRATION RATE ML/MIN/1.73 SQ M.PREDICTED 115.5 mL/min/1.73m*2 Normal >60.0 [facility] Comment on above: Result Comment: The [facility]???s estimated glomerular filtration rate (eGFR) will no [...] of individuals. Performed By: #### L [id number] ####[facility] ([facility])[address] [place] [address] Glucose [Mass/Vol] 86 mg/dL Normal 70-100 [facility] Comment on above: Performed By: #### L [id number] ####[facility] ([facility])[address] [place] [address] Potassium [Moles/Vol] 3.9 mmol/L Normal 3.5-5.1 [place] Comment on above: Performed By: #### L [id number] ####[facility] ([facility])[address] [place] [address] Sodium [Moles/Vol] 136 mmol/L Normal 136-145 [facility] Comment on above: Performed By: #### L [id number] ####[facility] ([facility])[address] [place] [address] Urea nitrogen [Mass/Vol] 12 mg/dL Normal 7-25 [facility] Comment on above: Performed By: #### L [id number] ####[facility] ([facility])[address] [place] [address] UREA NITROGEN/CREATININE (MASS RATIO) IN SER/PLAS 15.0 Normal [facility] Comment on above: Performed By: #### L [id number] ####[facility] ([facility])[address] [place] [address] CBC WITH AUTO DIFFERENTIALon 11-24-2023 Basophils (Bld) [#/Vol] 0.10 10*3/uL Normal 0.00-0.20 [facility] Comment on above: Performed By: #### L [id number] ####[facility] ([facility])[address] [place] [address] Basophils/100 WBC (Bld) 1.3 % High 0.0-1.0 [facility] Comment on above: Performed By: #### L [id number] ####[facility] ([facility]ER)[address] [place] [address] Eosinophils (Bld) [#/Vol] 0.41 10*3/uL Normal 0.00-0.50 [facility] Comment on above: Performed By: #### L [id number] ####[facility] ([facility]ER)[address] [place] [address] Eosinophils/100 WBC (Bld) 5.2 % Normal 0.0-6.0 [facility] Comment on above: Performed By: #### L [id number] ####[facility] ([facility])[address] [place] [address] Erythrocyte distribution width (RBC) [Ratio] 12.6 % Normal 11.5-15.0 [facility] Comment on above: Performed By: #### L [id number] ####[facility] ([facility])[address] [place] [address] ERYTHROCYTE MEAN CORPUSCULAR HEMOGLOBIN CONCENTRATION (G/DL) BY AUTOMATED 35.7 g/dL High 32.0-35.0 [facility] Comment on above: Performed By: #### L [id number] ####[facility] ([facility])[address] [place] [address] Hematocrit (Bld) [Volume fraction] 45.1 % Normal 39.0-55.0 [facility] Comment on above: Performed By: #### L [id number] ####[facility] ([facility]ER)[address] [place] [address] Hemoglobin (Bld) [Mass/Vol] 16.1 g/dL Normal 13.0-17.0 [facility] Comment on above: Performed By: #### L [id number] ####[facility] ([facility]ER)[address] [place] [address] Immature granulocytes (Bld) [#/Vol] 0.03 10*3/uL Normal 0.00-0.20 [facility] Comment on above: Performed By: #### L [id number] ####[facility] ([facility])[address] [place] [address] Immature granulocytes/100 WBC (Bld) 0.4 % Normal 0.0-1.0 [facility] Comment on above: Performed By: #### L [id number] ####[facility] (BE[facility]ER)[address] [place] [address] Lymphocytes (Bld) [#/Vol] 3.04 10*3/uL Normal 1.20-4.00 [facility] Comment on above: Performed By: #### L [id number] ####[facility] ([facility]ER)[address] [place] [address] Lymphocytes/100 WBC (Bld) 38.2 % Normal 20.0-45.0 [facility] Comment on above: Performed By: #### L [id number] ####[facility] ([facility]ER)[address] [place] [address] MCH (RBC) [Entitic mass] 31.0 pg Normal 27.0-33.0 [facility] Comment on above: Performed By: #### L [id number] ####[facility] ([facility]ER)[address] [place] [address] MCV (RBC) [Entitic vol] 86.9 fL Normal 82.0-98.0 [facility] Comment on above: Performed By: #### L [id number] ####[facility] ([facility]ER)[address] [place] [address] Monocytes (Bld) [#/Vol] 0.63 10*3/uL Normal 0.10-1.00 [facility] Comment on above: Performed By: #### L [id number] ####[facility] ([facility]ER)[address] [place] [address] Monocytes/100 WBC (Bld) 7.9 % Normal 5.0-12.0 [facility] Comment on above: Performed By: #### L [id number] ####[facility] ([facility]ER)[address] [place] [address] Neutrophils (Bld) [#/Vol] 3.74 10*3/uL Normal 1.60-7.60 [facility] Comment on above: Performed By: #### L [id number] ####[facility] ([facility])[address] [place] [address] Neutrophils/100 WBC (Bld) 47.0 % Normal 40.0-72.0 [facility] Comment on above: Performed By: #### L [id number] ####[facility] ([facility])[address] [place] [address] NRBC (PER 100 WBCS) BY AUTOMATED COUNT 0.0 % Normal 0 [facility] Comment on above: Performed By: #### L [id number] ####[facility] ([facility])[address] [place] [address] PLATELETS (10*3/UL) IN BLOOD AUTOMATED COUNT 332 10*3/uL Normal 150-400 [facility] Comment on above: Performed By: #### L [id number] ####[facility] ([facility])[address] [place] [address] RBC (Bld) [#/Vol] 5.19 10*6/uL Normal 4.20-5.70 [facility] Comment on above: Performed By: #### L [id number] ####[facility] ([facility])[address] [place] [address] WBC (Bld) [#/Vol] 7.95 10*3/uL Normal 4.00-10.60 [facility] Comment on above: Performed By: #### L [id number] ####[facility] [place] [address] CHOLESTEROL, TOTALon 024 Cholesterol [Mass/Vol] 203 mg/dL High 120-200 [facility] Comment on above: Result Comment: CHOL ESTEROL REFERENCE RANGE: 20 YEARS AND OLDER CARDIOVASCULAR RISK Less than 200 mg/dL Low Risk 200 to 239 mg/dL Borderline Risk 240 mg/dL and greater High Risk Performed By: #### L [id number] #### [facility] ([facility]ER) [address] [place] [address] DETOX PANEL URINEon 11-24-19 AMPHETAMINE+METHAMPHE TAMINE SCREEN (PRESENCE) IN URINE Negative Normal Negative [facility] Comment on above: Performed By: #### L [id number] ####[facility] ([facility])[address] [facility] [address] BARBITURATES PRESENCE IN URINE BY SCREEN METHOD Negative Normal Negative [facility] Comment on above: Performed By: #### L [id number] ####[facility] ([facility])[address] [facility] [place] [address] Benzodiazepines Ql (U) Negative Normal Negative [facility] Comment on above: Performed By: #### L [id number] ####[facility] ([facility])[address] [facility] [place] [address] CANNABINOID (PRESENCE) IN URINE BY SCREEN METHOD Positive Abnormal Negative [facility] Comment on above: Performed By: #### L [id number] ####[facility] ([facility])[address] [facility] [place] [address] Cocaine Ql (U) Negative Normal Negative [facility] Comment on above: Performed By: #### L [id number] ####[facility] ([facility])[address] [facility] [place] [address] METHADONE (PRESENCE) IN URINE BY SCREEN METHOD Negative Normal Negative [facility] Comment on above: Performed By: #### L [id number] ####[facility] ([facility])[address] [facility] [place] [address] OPIATES (PRESENCE) IN URINE BY SCREEN METHOD Negative Normal Negative [facility] Comment on above: Performed By: #### L [id number] ####[facility] ([facility])[address] [facility] [place] [address] PHENCYCLIDINE PRESENCE IN URINE BY SCREEN METHOD Negative Normal Negative [facility] Comment on above: Performed By: #### L [id number] ####[facility] ([facility])[address] [facility] [place] [address] Propoxyphene Screen Ql (U) Negative Normal Negative [facility] Comment on above: Performed By: #### L [id number] ####[facility] [place] [address] TRICYCLIC ANTIDEPRESSANTS (PRESENCE) IN URINE Negative Normal Negative [facility] Comment on above: Performed By: #### L [id number] ####[facility] [place] [address] ETHANOLon 11-24-2023 ETHANOL (MG/DL) IN SER/PLAS <10 Normal [facility] Comment on above: Performed By: #### L [id number] #### [facility] ([facility]) [address] [place] [address] ETHANOL CALCULATED (%) Normal [facility] Comment on above: Performed By: #### L [id number] #### [facility] ([facility]) [address] [place] [address] GAMMA GTon 11-24-2023 Amylase [Catalytic activity/Vol] 22 U/L Normal 9-64 [facility] Comment on above: Performed By: #### L [id number] #### [facility] ([facility]) [address] [place] [address] HEPATIC FUNCTION PANELon Albumin [Mass/Vol] 4.2 g/dL Normal 3.5-5.7 [facility] Comment on above: Performed By: #### L [id number] #### [facility] ([facility] [address] [place] [address] ALP [Catalytic activity/Vol] 55 U/L Normal 34-104 [facility] Comment on above: Performed By: #### L [id number] #### [facility] ([facility] [address] [place] [address] ALT [Catalytic activity/Vol] 22 U/L Normal 7-52 [facility] Comment on above: Performed By: #### L [id number] #### [facility] ([facility]) [address] [place] [address] AST [Catalytic activity/Vol] 21 U/L Normal 13-39 [facility] Comment on above: Performed By: #### L [id number] #### [facility] ([facility]) [address] [place] [address] Bilirubin [Mass/Vol] 0.6 mg/dL Normal 0.3-1.0 [facility] Comment on above: Performed By: #### L [id number] #### [facility] ([facility]) [address] [place] [address] Magnesium [Mass/Vol] 0.1 mg/dL Normal 0-0.2 [facility] Comment on above: Performed By: #### L [id number] #### [facility] ([facility]) [address] [place] [address] Protein [Mass/Vol] 7.2 g/dL Normal 6.0-8.3 [facility] Comment on above: Performed By: #### L [id number] #### [facility] ([facility]) [address] [place] [address] MAGNESIUMon 11-24-2023 Magnesium [Mass/Vol] 2.1 mg/dL Normal 1.9-2.7 [facility] Comment on above: Performed By: #### L [id number] #### [facility] ([facility]) [address] [place] [address] NURSNOTEon 11-24-2023 NURSNOTE Patient here to deto [...] meds. Urine taken down to lab. Normal [facility] PHOSPHORUSon 11-24-2023 Magnesium [Mass/Vol] 3.7 mg/dL Normal 2.5-5.0 [facility] Comment on above: Performed By: #### L [id number] ####[facility] ([facility])[address] [facility] [place] [address] RPRon 11-24-2023 REAGIN AB PRESENCE IN SERUM BY RPR Non-Reactive Normal Nonreactive [facility] Comment on above: Performed By: #### L [id number] #### [facility] ([facility]) [address] [place] [address] T3, FREEon 11-24-2023 TRIIODOTHYRONINE (T3) FREE (PG/ML) IN SER/PLAS 3.9 pg/mL Normal 2.5-3.9 [facility] Comment on above: Performed By: #### L [id number] #### [facility] ([facility]) [address] [place] [address] T4, FREEon 11-24-2023 THYROXINE (T4) FREE (NG/DL) IN SER/PLAS 1.16 ng/dL Normal 0.71-1.85 [facility] Comment on above: Performed By: #### L [id number] #### [facility] ([facility]) [address] [place] [address] TSHon 11-24-2023 THYROTROPIN (MIU/L) IN SER/PLAS BY DETECTION LIMIT <= 0.05 MIU/L 7.06 mIU/L High 0.34-5.60 [facility] Comment on above: Performed By: #### L [id number] #### [facility] ([facility]) [address] [place] [address] URIC ACIDon 11-24-2023 Magnesium [Mass/Vol] 6.5 mg/dL Normal 4.4-7.6 [facility] Comment on above: Performed By: #### L [id number] ####[facility] ([facility])[address] [place] [address] URINALYSISon 11-24-2023 BILIRUBIN, TOTAL PRESENCE IN URINE Negative Normal Negative [facility] Comment on above: Order Comment: Micro scopics not performed on urines with negative chemical reactions unless requested on original order. Performed By: #### L [id number] #### [facility] ([facility]) [address] [place] [address] Clarity (U) Clear Normal Clear [facility] Comment on above: Order Comment: Micro scopics not performed on urines with negative chemical reactions unless requested on original order. Performed By: #### L [id number] #### [facility] ([facility]) [address] [place] [address] Color (U) Yellow Normal Yellow [facility] Comment on above: Order Comment: Micro scopics not performed on urines with negative chemical reactions unless requested on original order. Performed By: #### L [id number] #### [facility] ([facility]) [address] [place] [address] Glucose (U) [Mass/Vol] Negative Normal Negative [facility] Comment on above: Order Comment: Micro scopics not performed on urines with negative chemical reactions unless requested on original order. Performed By: #### L [id number] #### [facility] ([facility]) [address] [place] [address] HEMOGLOBIN PRESENCE IN URINE Negative Normal Negative [facility] Comment on above: Order Comment: Micro scopics not performed on urines with negative chemical reactions unless requested on original order. Performed By: #### L [id number] #### [facility] ([facility]) [address] [place] [address] Ketones Ql (U) Negative Normal Negative [facility] Comment on above: Order Comment: Micro scopics not performed on urines with negative chemical reactions unless requested on original order. Performed By: #### L [id number] #### [facility] ([facility]) [address] [place] [address] LEUKOCYTE ESTERASE PRESENCE IN URINE BY TEST STRIP Negative Normal Negative [facility] Comment on above: Order Comment: Micro scopics not performed on urines with negative chemical reactions unless requested on original order. Performed By: #### L [id number] #### [facility] ([facility]AKER) [address] [place] [address] NITRITE PRESENCE IN URINE Negative Normal Negative [facility] Comment on above: Order Comment: Micro scopics not performed on urines with negative chemical reactions unless requested on original order. Performed By: #### L [id number] #### [facility] ([facility]) [address] [place] [address] pH (U) 6.0 [pH] Normal 5.0-8.0 [facility] Comment on above: Order Comment: Micro scopics not performed on urines with negative chemical reactions unless requested on original order. Performed By: #### L [id number] #### [facility] [address] [place] [address] Protein (U) [Mass/Vol] Negative Normal Negative [facility] Comment on above: Order Comment: Micro scopics not performed on urines with negative chemical reactions unless requested on original order. Performed By: #### L [id number] #### [facility] ([facility]) [address] [place] [address] Specific gravity (U) [Rel density] 1.017 Normal 1.015-1.020 [facility] Comment on above: Order Comment: Micro scopics not performed on urines with negative chemical reactions unless requested on original order. Performed By: #### L [id number] #### [facility] ([facility]ER) [address] [place] [address] 30on 10-01-2023 30 The patient is Moder [...] able to stop initially Outcome: Progressing Normal [facility] 94on 10-01-2023 94 Group Topic: Activit y Therapy Group Date: 10/01/2023 Start Time: 1030 End Time: 1125 Facilitators: FLAKITO CrowS Department: [facility] Recovery Number of Participants: 2 Group Focus: [...] Daron Villarreal Date of : 1985 MR: [id number] Level of Participation: active Quality of Participation: attentive, cooperative, and engaged Interactions with others: supportive Mood/Affect: appropriate Progress: Moderate Response: Pt. Engaged in group alongside BELT MACHINE OPERATOR and peers. Pt. Participated in group activity as well as discussion about family relationships and previous leisure hobbies. Plan: Pt. Will be encouraged to continue attending therapeutic recreation interventions with the BELT MACHINE OPERATOR and peers while on the unit. Patients Problems: Patient Active Problem List Diagnosis Alcohol abuse with withdrawal ([facility]) GERD (gastroesophageal reflux disease) Normal [facility] DSon 10-01-2023 DS Discharge Date: 10/01 Time Spent with Patient: 31 minutes spent with patient, discussing discharge instructions, ordering medications, reviewing lab work, communicating with other healthcare professionals, documenting clinical information and the patient's follow-up plan. Chief Complaint: Alcohol abuse and withdrawal Consults: GIM History of Present Illness: Daron Villarreal is a 38 YOM that presents to [facility] for alcohol dependence with active withdrawal. Patient [...] depression and PTSD with past treatment at [facility] a few months ago when he was seeing a counselor. Patient is currently prescribed prozac, Buspar and gabapentin that was prescribed from a recent hospitalization at [facility]. Patient was hospitalized due to depression and [...] Negative mg/dL Bilirubin, Urine Negative Negative Specific [place], Urine 1.023 (H) 1.015 - 1.020 Ketones, [...] 1.00 10*3/uL E (more content not included)... [facility] NURSNOTEon 10-01-2023 STEPHENNOTE Patient was escorted [...] as well. Pt belongings returned to pt. [facility] STEPHENNOTE Pt awoken for AM programming [...] Speech is normal rate, tone and rhythm. [facility] NURSNOTE Pt slept throughout the night. No concerns voiced. Pt. States he slept well. No withdrawal symptoms noted at this time. [facility] 30on 09-30-2023 30 The patient is Moder ately Stable - Low risk of patient condition declining or worsening The patient's goals for the shift include Comfort The clinical goals for the shift include comfort, safety [facility] 30 The patient is Moder ately [...] conversations about continued abstinence Outcome: Progressing Normal [facility] 94on 09-30-2023 94 Group Topic: Dischar ge Planning Group Date: 09/30/2023 Start Time: 1835 End Time: 1915 Facilitators: KENISHA Bhardwaj Department: [facility] DRIVER Number of Participants: 3 Group Focus: discharge education Treatment Modality: Patient-Centered Therapy Interventions utilized were exploration Purpose: relapse prevention strategies Name: Daron Villarreal Date of : 1985 MR: [id number] Level of Participation: moderate Quality of Participation: cooperative Interactions with others: supportive Mood/Affect: appropriate Cognition: coherent/clear Progress: Moderate Patients Problems: Patient Active Problem List Diagnosis Alcohol abuse with withdrawal (CMS/HCC) GERD (gastroesophageal reflux disease) [facility] 94 Group Topic: Activit y Therapy Group Date: 09/30/2023 Start Time: 1530 End Time: 1600 Facilitators: CHRIS Crow Department: [facility] Recovery Number of Participants: 0 Group Focus: [...] Daron Villarreal Date of : 1985 MR: [id number] Level of Participation: refused Progress: None Response: Pt. Actively refused integration into group with BELT MACHINE OPERATOR and peers at this time. Plan: Pt. Will be encouraged to attend therapeutic recreation interventions with the BELT MACHINE OPERATOR in the future. Patients Problems: Patient Active Problem List Diagnosis Alcohol abuse with withdrawal (CMS/HCC) GERD (gastroesophageal reflux disease) [facility] 94 Group Topic: Relaxat ion Group Date: 09/30/2023 Start Time: 1330 End Time: 1430 Facilitators: CHRIS Crow Department: [facility] Recovery Number of Participants: 0 Group Focus: [...] Daron Villarreal Date of : 1985 MR: [id number] Level of Participation: refused Progress: None Response: Pt. Actively refused integration into group with BELT MACHINE OPERATOR and peers at this time. Plan: Pt. Will be encouraged to attend therapeutic recreation interventions with the BELT MACHINE OPERATOR in the future. Patients Problems: Patient Active Problem List Diagnosis Alcohol abuse with withdrawal (CMS/HCC) GERD (gastroesophageal reflux disease) [facility] 94 Group Topic: Activit y Therapy Group Date: 09/30/2023 Start Time: 1030 End Time: 1130 Facilitators: CHRIS Crow Department: [facility] Recovery Number of Participants: 3 Group Focus: [...] Daron Villarreal Date of : 1985 MR: [id number] Level of Participation: active Quality of Participation: attentive, cooperative, engaged, and motivated Interactions with others: supportive and offered helpful suggestions Mood/Affect: appropriate and positive Progress: Moderate Response: Pt. Engaged in group alongside BELT MACHINE OPERATOR and peers. Pt. Participated in group activity and discussion about family and goals for the future. Plan: Pt. Will be encouraged to continue attending therapeutic recreation interventions with the BELT MACHINE OPERATOR and peers while on the unit. Patients Problems: Patient Active Problem List Diagnosis Alcohol abuse with withdrawal (CMS/HCC) GERD (gastroesophageal reflux disease) [facility] NURSNOTEon 09-30-2023 JODY Assumed the care of pt at 1900. Pt is alert and oriented x3. Pt denies withdrawal symptoms. Pt states he is having anxiety about leaving tomorrow, although he is happy to be leaving. Pt medicated with scheduled and PRN medications [facility] JODY Patient continues to watch TV in his room. No acute distress noted or voiced. Normal [facility] JODY Patient home psych medication was order and administer to him. He was also updated on the current POC and other home medications that were ordered. He continues to watch TV in his room with no acute distress noted or voiced. [facility] JODY Patient is currently participating in group. [facility] JODY Pt awoken for AM programming [...] is normal rate, tone and rhythm. Normal [facility] JODY Patient resting in b ed with eyes closed. Patient appears to have slept very well through the night. No signs of distress noted. Breathing is unlabored and even. Safety maintained. [facility] 30on 09-29-2023 30 The patient is [...] able to stop initially Outcome: Progressing Normal [facility] 94on 09-29-2023 94 Group Topic: Activit y Therapy Group Date: 09/29/2023 Start Time: 1530 End Time: 1610 Facilitators: FLAKITO CrowS Department: [facility] Recovery Number of Participants: 2 Group Focus: [...] Daron Villarreal Date of : 1985 MR: [id number] Level of Participation: active Quality of Participation: attentive, cooperative, and engaged Interactions with others: supportive and offered helpful suggestions Mood/Affect: appropriate Progress: Moderate Response: Pt. Engaged in group alongside BELT MACHINE OPERATOR and peers. Pt. Participated in group poem activity. Discussed self-acceptance and goals for increasing confidence. Plan: Pt. Will be encouraged to continue attending therapeutic recreation interventions with the BELT MACHINE OPERATOR and peers while on the unit. Patients Problems: Patient Active Problem List Diagnosis Alcohol abuse with withdrawal (CMS/HCC) GERD (gastroesophageal reflux disease) Normal [facility] 94 Group Topic: Activit y Therapy Group Date: 09/29/2023 Start Time: 1330 End Time: 1425 Facilitators: CHRIS Crow Department: [facility] Recovery Number of Participants: 1 Group Focus: [...] Daron Villarreal Date of : 1985 MR: [id number] Level of Participation: withdrawn Progress: None Response: Pt. Was withdrawn from group and remained isolated in their room. Plan: Pt. Will be encouraged to attend therapeutic recreation interventions with the BELT MACHINE OPERATOR in the future. Patients Problems: Patient Active Problem List Diagnosis Alcohol abuse with withdrawal (CMS/HCC) GERD (gastroesophageal reflux disease) Normal [facility] 94 Group Topic: Coping Skills Group Date: 09/29/2023 Start Time: 1030 End Time: 1130 Facilitators: Maribell Hood BELT MACHINE OPERATOR Department: [facility] Recovery Number of Participants: 3 Group Focus: [...] Daron Villarreal Date of : 1985 MR: [id number] Level of Participation: active Quality of Participation: attentive, cooperative, engaged, and motivated Interactions with others: supportive, asked thoughtful questions, and offered helpful suggestions Mood/Affect: appropriate and positive Progress: Moderate Response: Pt. Engaged in group alongside BELT MACHINE OPERATOR and peers. Pt. Participated in group discussion about identifying positive coping skills as well as creating healthy habits into a daily routine. Plan: Pt. Will be encouraged to continue attending therapeutic recreation interventions with the BELT MACHINE OPERATOR and peers while on the unit. Patients Problems: Patient Active Problem List Diagnosis Alcohol abuse with withdrawal (CMS/HCC) GERD (gastroesophageal reflux disease) [facility] CONSULTon 09-29-2023 CONSULT ------ -- Attestation [...] Villarreal Age - 38 y.o. - 1985 [facility] # - [id number] Date of Admission - 09/28/2023 8:22 PM [...] tablet 1 mg, 1 mg, oral, Daily, Severinao Chauhan MD, 1 mg at 09/28/232125 gabapentin [...] Patient family hist (more content not included)... [facility] HPon 09-29-2023 HP SUBJECTIVE: Daron Villarreal is a 38 y.o. male admitted 09/28/2023 to [facility] for alcohol dependence with active withdrawal. Attending Physician at the Time of Consult: Severiano Chauhan MD History of Present Illness: Daron Villarreal is a 38 YOM that presents to [facility] for alcohol dependence with active withdrawal. Patient [...] depression and PTSD with past treatment at [facility] a few months ago when he was seeing a counselor. Patient is currently prescribed prozac, Buspar and gabapentin that was prescribed from a recent hospitalization at [facility]. Patient was hospitalized due to depression and [...] Inpatient Hx: Yes, patient recently treated at [facility] Outpatient Hx: Yes, [facility] in the past for mental health services Hx of Suicidal Ideation: Yes, reason for recent hospitalization at [facility] Hx of Suicide Attempts: Denies Hx of [...] his son. Social History Born and Raised: [place], [place] Housing: Housed, living with a sober [...] Range Acetaminop (more content not included)... Normal [facility] NURSNOTEon 09-29-2023 NURSNOTE Patient up ad gini on the unit. Patient is pleasant and cooperative with staff and assessment. Patient complains of Mild symptoms of withdrawal and was given PRN comfort medications. No signs of distress noted. Breathing is unlabored and even. Safety maintained. Normal [facility] NURSNOTE Pt c/o anxiety and d enied all other withdrawal symptoms. Prns given. Normal [facility] NURSNOTE Pt c/o shakes and anxiety . No tremor witnessed. Pt given PRN Clonidine per Daylin Rudd CNP. Will continue to monitor. Normal [facility] NURSNOTE Pt c/o increased anx iety and restlessness. PRN gabapentin and vistaril given. Pt is now rounding with staff in the day area. Will continue to monitor. Normal [facility] NURSNOTE Patient slept 8 hour s through the night. Scheduled and PRN medications are helping. Normal [facility] 30on 09-28-2023 30 The patient is Moder [...] able to stop initially Outcome: Progressing Normal [facility] ACETAMINOPHEN LEVELon 2022 ACETAMINOPHEN (UG/ML) IN SER/PLAS <10 Low 10-30 [facility] Comment on above: Performed By: #### L [id number] #### [facility] (BEAKER) [address] [place] [address] BASIC METABOLIC PANELon 12-0 Anion gap [Moles/Vol] 10 mmol/L Normal 7-20 [facility] Comment on above: Performed By: #### L [id number] #### [facility] ([facility]) [address] [place] [address] Calcium [Mass/Vol] 9.1 mg/dL Normal 8.6-10.3 [facility] Comment on above: Performed By: #### L [id number] #### [facility] ([facility]) [address] [place] [address] Chloride [Moles/Vol] 105 mmol/L Normal 98-107 [facility] Comment on above: Performed By: #### L [id number] #### [facility] ([facility]) [address] [place] [address] CO2 [Moles/Vol] 25 mmol/L Normal 21-31 [facility] Comment on above: Performed By: #### L [id number] #### [facility] ([facility]) [address] [place] [address] Creatinine [Mass/Vol] 0.97 mg/dL Normal 0.70-1.30 [place] Comment on above: Performed By: #### L [id number] #### [facility] ([facility]) [address] [place] [address] GLOMERULAR FILTRATION RATE ML/MIN/1.73 SQ M.PREDICTED 101.8 mL/min/1.73m*2 Normal >60.0 [facility] Comment on above: Result Comment: The [facility]???s estimated glomerular filtration rate (eGFR) will no [...] individuals. Performed By: #### L [id number] #### [facility] ([facility]) [address] [place] [address] Glucose [Mass/Vol] 96 mg/dL Normal 70-100 [facility] Comment on above: Performed By: #### L [id number] #### [facility] ([facility]) [address] [place] [address] Potassium [Moles/Vol] 3.8 mmol/L Normal 3.5-5.1 [place] Comment on above: Performed By: #### L [id number] #### [facility] ([facility]) [address] [place] [address] Sodium [Moles/Vol] 136 mmol/L Normal 136-145 [facility] Comment on above: Performed By: #### L [id number] #### [facility] ([facility]) [address] [place] [address] Urea nitrogen [Mass/Vol] 14 mg/dL Normal 7-25 [facility] Comment on above: Performed By: #### L [id number] #### [facility] ([facility]) [address] [place] [address] UREA NITROGEN/CREATININE (MASS RATIO) IN SER/PLAS 14.4 Normal [facility] Comment on above: Performed By: #### L [id number] #### [facility] ([facility]) [address] [place] [address] CBC WITH AUTO DIFFERENTIALon 09-28-2023 Basophils (Bld) [#/Vol] 0.10 10*3/uL Normal 0.00-0.20 [facility] Comment on above: Performed By: #### L [id number] #### [facility] ([facility]) [address] [place] [address] Basophils/100 WBC (Bld) 1.3 % High 0.0-1.0 [facility] Comment on above: Performed By: #### L [id number] #### [facility] ([facility]) [address] [place] [address] Eosinophils (Bld) [#/Vol] 0.45 10*3/uL Normal 0.00-0.50 [facility] Comment on above: Performed By: #### L [id number] #### [facility] ([facility]) [address] [place] [address] Eosinophils/100 WBC (Bld) 5.7 % Normal 0.0-6.0 [facility] Comment on above: Performed By: #### L [id number] #### [facility] ([facility]) [address] [place] [address] Erythrocyte distribution width (RBC) [Ratio] 13.2 % Normal 11.5-15.0 [facility] Comment on above: Performed By: #### L [id number] #### [facility] ([facility]) [address] [place] [address] ERYTHROCYTE MEAN CORPUSCULAR HEMOGLOBIN CONCENTRATION (G/DL) BY AUTOMATED 34.3 g/dL Normal 32.0-35.0 [facility] Comment on above: Performed By: #### L [id number] #### [facility] ([facility]) [address] [place] [address] Hematocrit (Bld) [Volume fraction] 45.2 % Normal 39.0-55.0 [facility] Comment on above: Performed By: #### L [id number] #### [facility] ([facility]) [address] [place] [address] Hemoglobin (Bld) [Mass/Vol] 15.5 g/dL Normal 13.0-17.0 [facility] Comment on above: Performed By: #### L [id number] #### [facility] ([facility]) [address] [place] [address] Immature granulocytes (Bld) [#/Vol] 0.03 10*3/uL Normal 0.00-0.20 [facility] Comment on above: Performed By: #### L [id number] #### [facility] ([facility]) [address] [place] [address] Immature granulocytes/100 WBC (Bld) 0.4 % Normal 0.0-1.0 [facility] Comment on above: Performed By: #### L [id number] #### [facility] ([facility]) [address] [place] [address] Lymphocytes (Bld) [#/Vol] 2.96 10*3/uL Normal 1.20-4.00 [facility] Comment on above: Performed By: #### L [id number] #### [facility] ([facility]) [address] [place] [address] Lymphocytes/100 WBC (Bld) 37.2 % Normal 20.0-45.0 [facility] Comment on above: Performed By: #### L [id number] #### [facility] ([facility]) [address] [place] [address] MCH (RBC) [Entitic mass] 30.5 pg Normal 27.0-33.0 [facility] Comment on above: Performed By: #### L [id number] #### [facility] ([facility]) [address] [place] [address] MCV (RBC) [Entitic vol] 89.0 fL Normal 82.0-98.0 [facility] Comment on above: Performed By: #### L [id number] #### [facility] ([facility]) [address] [place] [address] Monocytes (Bld) [#/Vol] 0.68 10*3/uL Normal 0.10-1.00 [facility] Comment on above: Performed By: #### L [id number] #### [facility] ([facility]) [address] [place] [address] Monocytes/100 WBC (Bld) 8.5 % Normal 5.0-12.0 [facility] Comment on above: Performed By: #### L [id number] #### [facility] ([facility]) [address] [place] [address] Neutrophils (Bld) [#/Vol] 3.74 10*3/uL Normal 1.60-7.60 [facility] Comment on above: Performed By: #### L [id number] #### [facility] ([facility]) [address] [place] [address] Neutrophils/100 WBC (Bld) 46.9 % Normal 40.0-72.0 [facility] Comment on above: Performed By: #### L [id number] #### [facility] ([facility]) [address] [place] [address] NRBC (PER 100 WBCS) BY AUTOMATED COUNT 0.0 % Normal 0 [facility] Comment on above: Performed By: #### L [id number] #### [facility] ([facility]) [address] [place] [address] PLATELETS (10*3/UL) IN BLOOD AUTOMATED COUNT 234 10*3/uL Normal 150-400 [facility] Comment on above: Performed By: #### L [id number] #### [facility] ([facility]) [address] [place] [address] RBC (Bld) [#/Vol] 5.08 10*6/uL Normal 4.20-5.70 [facility] Comment on above: Performed By: #### L [id number] #### [facility] ([facility]) [address] [place] [address] WBC (Bld) [#/Vol] 7.96 10*3/uL Normal 4.00-10.60 [facility] Comment on above: Performed By: #### L [id number] #### [facility] ([facility]) [address] [place] [address] CHOLESTEROL, TOTALon 023 Cholesterol [Mass/Vol] 225 mg/dL High 120-200 [facility] Comment on above: Result Comment: CHOL ESTEROL REFERENCE RANGE: 20 YEARS AND OLDER CARDIOVASCULAR RISK Less than 200 mg/dL Low Risk 200 to 239 mg/dL Borderline Risk 240 mg/dL and greater High Risk Performed By: #### L [id number] #### [facility] ([facility]) [address] [place] [address] DETOX PANEL URINEon 09-28-20 23 AMPHETAMINE+METHAMPHE TAMINE SCREEN (PRESENCE) IN URINE Negative Normal Negative [facility] Comment on above: Performed By: #### L [id number] #### [facility] ([facility]) [address] [place] [address] BARBITURATES PRESENCE IN URINE BY SCREEN METHOD Negative Normal Negative [facility] Comment on above: Performed By: #### L [id number] #### [facility] ([facility]) [address] [place] [address] Benzodiazepines Ql (U) Negative Normal Negative [facility] Comment on above: Performed By: #### L [id number] #### [facility] ([facility]) [address] [place] [address] CANNABINOID (PRESENCE) IN URINE BY SCREEN METHOD Positive Abnormal Negative [facility] Comment on above: Performed By: #### L [id number] #### [facility] ([facility]) [address] [place] [address] Cocaine Ql (U) Negative Normal Negative [facility] Comment on above: Performed By: #### L [id number] #### [facility] ([facility]) [address] [place] [address] METHADONE (PRESENCE) IN URINE BY SCREEN METHOD Negative Normal Negative [facility] Comment on above: Performed By: #### L [id number] #### [facility] ([facility]) [address] [place] [address] OPIATES (PRESENCE) IN URINE BY SCREEN METHOD Negative Normal Negative [facility] Comment on above: Performed By: #### L [id number] #### [facility] ([facility]) [address] [place] [address] PHENCYCLIDINE PRESENCE IN URINE BY SCREEN METHOD Negative Normal Negative [facility] Comment on above: Performed By: #### L [id number] #### [facility] ([facility]) [address] [place] [address] Propoxyphene Screen Ql (U) Negative Normal Negative [facility] Comment on above: Performed By: #### L [id number] #### [facility] ([facility]) [address] [place] [address] TRICYCLIC ANTIDEPRESSANTS (PRESENCE) IN URINE Negative Normal Negative [facility] Comment on above: Performed By: #### L [id number] #### [facility] ([facility]) [address] [place] [address] ETHANOLon 09-28-2023 ETHANOL (MG/DL) IN SER/PLAS <10 Normal [facility] Comment on above: Performed By: #### L [id number] #### [facility] ([facility]) [address] [place] [address] ETHANOL CALCULATED (%) Normal [facility] Comment on above: Performed By: #### L [id number] #### [facility] ([facility]) [address] [place] [address] GAMMA GTon 09-28-2023 Amylase [Catalytic activity/Vol] 34 U/L Normal 9-64 [facility] Comment on above: Performed By: #### L [id number] #### [facility] ([facility]) [address] [place] [address] HEPATIC FUNCTION PANELon Albumin [Mass/Vol] 4.3 g/dL Normal 3.5-5.7 [facility] Comment on above: Performed By: #### L [id number] ####[facility] ([facility])[address] [place] [address] ALP [Catalytic activity/Vol] 53 U/L Normal 34-104 [facility] Comment on above: Performed By: #### L [id number] ####[facility] ([facility])[address] [place] [address] ALT [Catalytic activity/Vol] 25 U/L Normal 7-52 [facility] Comment on above: Performed By: #### L [id number] ####[facility] ([facility])[address] [place] [address] AST [Catalytic activity/Vol] 21 U/L Normal 13-39 [facility] Comment on above: Performed By: #### L [id number] ####[facility] ([facility])[address] [place] [address] Bilirubin [Mass/Vol] 0.7 mg/dL Normal 0.3-1.0 [facility] Comment on above: Performed By: #### L [id number] ####[facility] ([facility])[address] [place] [address] Magnesium [Mass/Vol] 0.1 mg/dL Normal 0-0.2 [facility] Comment on above: Performed By: #### L [id number] ####[facility] ([facility])[address] [place] [address] Protein [Mass/Vol] 6.7 g/dL Normal 6.0-8.3 [facility] Comment on above: Performed By: #### L [id number] ####[facility] ([facility])[address] [place] [address] MAGNESIUMon 09-28-2023 Magnesium [Mass/Vol] 2.0 mg/dL Normal 1.9-2.7 [facility] Comment on above: Performed By: #### L [id number] #### [facility] ([facility]) [address] [place] [address] NURSNOTEon 09-28-2023 NURSNOTE Patient arrived in n o acute distress, patient wanded for metal and belongings checked. No metal or contraband found. Participation agreement signed. Last drink of 8-12 beers was at 2200 on 09/27/23. Patient C/O tremors, anxiety, restless legs, constipation, indigestion, sweats, nicotine cravings, and insomnia. Normal [facility] PHOSPHORUSon 09-28-2023 Magnesium [Mass/Vol] 3.7 mg/dL Normal 2.5-5.0 [facility] Comment on above: Performed By: #### L [id number] ####[facility] ([facility])[address] [place] [address] RPRon 09-28-2023 REAGIN AB PRESENCE IN SERUM BY RPR Non-Reactive Normal Nonreactive [facility] Comment on above: Performed By: #### L [id number] ####[facility] ([facility])[address] [place] [address] TSHon 09-28-2023 THYROTROPIN (MIU/L) IN SER/PLAS BY DETECTION LIMIT <= 0.05 MIU/L 9.84 mIU/L High 0.34-5.60 [facility] Comment on above: Performed By: #### L [id number] #### [facility] ([facility]) [address] [place] [address] URIC ACIDon 09-28-2023 Magnesium [Mass/Vol] 6.4 mg/dL Normal 4.4-7.6 [facility] Comment on above: Performed By: #### L [id number] ####[facility] ([facility])[address] [place] [address] URINALYSISon 09-28-2023 BILIRUBIN, TOTAL PRESENCE IN URINE Negative Normal Negative [facility] Comment on above: Performed By: #### L [id number] ####[facility] ([facility])[address] [place] [address] Clarity (U) Clear Normal Clear [facility] Comment on above: Performed By: #### L [id number] ####[facility] ([facility])[address] [place] [address] Color (U) Yellow Normal Yellow [facility] Comment on above: Performed By: #### L [id number] ####[facility] ([facility])[address] [place] [address] Glucose (U) [Mass/Vol] Negative Normal Negative [facility] Comment on above: Performed By: #### L [id number] ####[facility] ([facility])[address] [place] [address] HEMOGLOBIN PRESENCE IN URINE Negative Normal Negative [facility] Comment on above: Performed By: #### L [id number] ####[facility] ([facility])[address] [place] [address] Ketones Ql (U) Negative Normal Negative [facility] Comment on above: Performed By: #### L [id number] ####[facility] ([facility])[address] [place] [address] LEUKOCYTE ESTERASE PRESENCE IN URINE BY TEST STRIP Trace Abnormal Negative [facility] Comment on above: Performed By: #### L [id number] ####[facility] ([facility])[address] [place] [address] NITRITE PRESENCE IN URINE Negative Normal Negative [facility] Comment on above: Performed By: #### L [id number] ####[facility] ([facility])[address] [place] [address] pH (U) 7.0 [pH] Normal 5.0-8.0 [facility] Comment on above: Performed By: #### L [id number] ####[facility] ([facility])[address] [place] [address] Protein (U) [Mass/Vol] Negative Normal Negative [facility] Comment on above: Performed By: #### L [id number] ####[facility] ([facility])[address] [place] [address] Specific gravity (U) [Rel density] 1.023 High 1.015-1.020 [facility] Comment on above: Performed By: #### L [id number] ####[facility] ([facility])[address] [place] [address] URINALYSIS MICROSCOPICon CASTS IN URINE Normal [facility] Comment on above: Performed By: #### L [id number] #### [facility] ([facility]) [address] [place] [address] CRYSTALS IN URINE Normal [facility] Comment on above: Performed By: #### L [id number] #### [facility] ([facility]) [address] [place] [address] MUCUS (#/HPF) IN URINE SEDIMENT Few Normal None Seen, Occasional, Few [facility] Comment on above: Performed By: #### L [id number] #### [facility] ([facility]) [address] [place] [address] RBC (#/HPF) IN URINE SEDIMENT None Seen Normal None Seen [facility] Comment on above: Performed By: #### L [id number] #### [facility] ([facility]) [address] [place] [address] SQUAMOUS EPITHELIAL CELLS (#/HPF) IN URINE SEDIMENT Few Abnormal None Seen, Occasional [facility] Comment on above: Performed By: #### L [id number] #### [facility] ([facility]) [address] [place] [address] WBC (LEUKOCYTE) (#/HPF) IN URINE SEDIMENT 6-10 Abnormal None Seen [facility] Comment on above: Performed By: #### L [id number] #### [facility] ([facility]) [address] [place] [address] ANION GAPon 02-02-2023 Anion gap [Moles/Vol] 9 mmol/L 8.0 - 16.0 meq/l [facility] Comment on above: ANION GAP = Sodium - (Chloride + CO2) Performed at [facility] [address] [place] [address] CBC with Auto Differentialon 02-02-2023 Basophils (Bld) [...] [facility] Comment on above: Performed at [facility] [address] [place] [address] Immature granulocytes/100 WBC (Bld) 0 % [facility] Interpretation and review of laboratory results Abnormal [facility] Lymphocytes Absolute 2.8 [facility] Lymphocytes/100 WBC (Bld) 27.8 % 15.0 - 47.0 % [facility] MCH (RBC) [Entitic mass] 30.7 pg 26.0 - 32.0 pg [facility] MCHC (RBC) [Mass/Vol] 34.7 g/dL [facility] MCV (RBC) [Entitic vol] 88.4 fL 80.0 - 94.0 fL [facility] Monocytes 0.8 [facility] Monocytes/100 WBC (Bld) 8.1 % 0.0 - 12.0 % [facility] Platelet distribution width (Bld) [Ratio] 13.2 % 11.5 - 14.9 % [facility] Platelet mean volume (Bld) [Entitic vol] 9.2 fL Low 9.4 - 12.4 fL [facility] Platelets (Bld) [#/Vol] 242 10*3/uL [facility] RBC (Bld) [#/Vol] 5.35 10*6/uL [facility] Segmented neutrophils/100 WBC (Bld) 61.1 % 43.0 - 75.0 % [facility] Segs Absolute 6.2 [facility] WBC (Bld) [#/Vol] 10.1 10*3/uL [facility] COVID-19, Rapidon 02-02-2023 SARS-CoV-2 (COVID-19) RdRp gene BRITTANY+probe Ql (Resp) Not detected NOT DETECTED [facility] Comment on above: Rapid NAAT: [...] authorized laboratories. Fact sheet for Healthcare Providers: https://www.fda.gov/media/252093/download Fact sheet for Patients: https://www.fda.gov/media/929222/download METHODOLOGY: Isothermal Nucleic Acid Amplification Performed at [facility] [address] [place] [address] Comprehensive metabolic 2000 panelon 02-02-2023 Albumin BCP dye [Mass/Vol] 3.5 [facility] ALP [Catalytic activity/Vol] 60 U/L 46 - 116 U/L [facility] ALT With P-5'-P [Catalytic activity/Vol] 39 U/L 14 - 63 U/L [facility] Comment on above: Sulfasalazine and Olmedo lfapyridine may interfere with testing and cause false results. For patients taking these medications, it is recommended that venipuncture occur prior to adminstra- tion of these drugs. Performed at [facility] [address] [place] [address] AST With P-5'-P [Catalytic activity/Vol] 21 U/L 15 - 37 U/L [facility] Comment on above: Sulfasalazine and Olmedo lfapyridine may interfere with testing and cause false results. For patients taking these medications, it is recommended that venipuncture occur prior to adminstra- tion of these drugs. Bilirubin [Mass/Vol] 0.6 mg/dL 0.2 - 1 .0 mg/dl [facility] Calcium [Mass/Vol] 9.1 mg/dL 8.5 - 10. 1 mg/dl [facility] Chloride [Moles/Vol] 103 mmol/L 98 - 10 7 meq/l [facility] CO2 [Moles/Vol] 28 mmol/L 21 - 32 meq/l [facility] Creatinine [Mass/Vol] 0.7 mg/dL 0.6 - 1.3 mg/dl [facility] Glucose [Mass/Vol] 94 mg/dL 74 - 106 mg/dl [facility] Comment on above: Sulfasalazine and Olmedo lfapyridine may interfere with testing and cause false results. For patients taking these medications, it is recommended that venipuncture occur prior to adminstra- tion of these drugs. Potassium [Moles/Vol] 3.8 mmol/L 3.5 - 5.1 meq/l [facility] Protein [Mass/Vol] 7.1 g/dL [facility] Sodium [Moles/Vol] 140 mmol/L 136 - 145 meq/l [facility] Urea nitrogen [Mass/Vol] 17 mg/dL 7 - 18 mg/dl [facility] [employer] ETOHon 02-02-2023 ANALYZED BY: [facility] L[employer]i Date Of Collection 02/02/23 [facility] Comment on above: Performed at [address] [address] Drawn By Lisbeth Luong [facility] Ethanol [Mass/Vol] mg/dL 0.00 % (gm/dl) [facility] [employer] Methodology [employer] [facility] [employer] Time Collected 182 [facility] [employer] Glomerular Filtration Rate, Estimatedon 02-02-2023 GFR/1.73 sq M.predicted MDRD (S/P/Bld) [Vol rate/Area] mL/min/{1.73_m2} - PINF [facility] Comment on above: Pediatric calculator [...] that affects renal tubular secretion. Performed at [address] [address] Magnesiumon 02-02-2023 Magnesium [Mass/Vol] 2.0 mg/dL 1.8 - 2 .4 mg/dl [facility] Comment on above: Performed at [address] [address] No Panel Informationon 02-02 [facility] [employer] SARS-CoV-2 (COVID-19) RdRp g jerry BRITTANY+probe Ql (Resp)on 02-02-2023 [facility] [employer] CBC with Auto Differentialon 01-24-2023 Absolute Eos # 0.43 EDEN S [employer] Absolute Immature Granulocyte 0.03 [facility] [employer] Absolute Lymph # 2.65 [facility] [employer] Absolute [place] # 0.76 [facility] Basophils (Bld) [#/Vol] 0.10 10*3/uL [facility] Basophils/100 WBC (Bld) 1 % 0 - 2 % [facility] Eosinophils/100 WBC (Bld) 4 % 1 - 4 % [facility] Hematocrit (Bld) [Volume fraction] 46.0 % 40.7 - 50.3 % [facility] Hemoglobin (Bld) [Mass/Vol] 15.5 g/dL 13.0 - 17.0 g/dL [facility] Immature granulocytes/100 WBC (Bld) 0 % 0 [facility] Lymphocytes/100 WBC (Bld) 26 % 24 - 43 % [facility] MCH (RBC) [Entitic mass] 30.5 pg 25.2 - 33.5 pg [facility] MCHC (RBC) [Mass/Vol] 33.7 g/dL 28.4 - 34.8 g/dL [facility] MCV (RBC) [Entitic vol] 90.4 fL 82.6 - 102.9 fL [facility] Monocytes/100 WBC (Bld) 8 % 3 - 12 % [facility] NRBC Automated 0.0 0.0 per 100 WBC [facility] Platelet distribution width (Bld) [Ratio] 13.7 % 11.8 - 14.4 % [facility] Platelet mean volume (Bld) [Entitic vol] 9.6 fL 8.1 - 13.5 fL [facility] Platelets (Bld) [#/Vol] 224 10*3/uL [facility] RBC (Bld) [#/Vol] 5.09 10*6/uL 4.21 - 5.7 7 m/uL [facility] Segmented neutrophils/100 WBC (Bld) 61 % 36 - 65 % [facility] Segs Absolute 6.09 [facility] WBC (Bld) [#/Vol] 10.1 10*3/uL [facility] CMPon 01-24-2023 Albumin [Mass/Vol] 3.9 g/dL 3.5 - 5.2 g/dL [facility] Albumin/Globulin [Mass ratio] 1.3 {ratio} 1.0 - 2.5 [facility] ALP [Catalytic activity/Vol] 49 U/L 40 - 129 U/L [facility] ALT [Catalytic activity/Vol] 39 U/L 5 - 41 U/L [facility] Anion gap [Moles/Vol] 11 mmol/L 9 - 17 mmol/L [facility] AST [Catalytic activity/Vol] 38 U/L NINF - 40 U/L [facility] Bilirubin [Mass/Vol] 0.5 mg/dL 0.3 - 1 .2 mg/dL [facility] Calcium [Mass/Vol] 9.3 mg/dL 8.6 - 10. 4 mg/dL [facility] Chloride [Moles/Vol] 97 mmol/L Low 98 - 10 7 mmol/L [facility] CO2 [Moles/Vol] 26 mmol/L 20 - 31 mmol/L [facility] Creatinine [Mass/Vol] 0.77 mg/dL 0.70 - 1.20 mg/dL [facility] GFR/1.73 sq M.predicted MDRD (S/P/Bld) [Vol rate/Area] - PINF [facility] Comment on above: These results [...] 126 mg/dL High 70 - 99 mg/dL [facility] Interpretation and review of laboratory results Abnormal [facility] Potassium [Moles/Vol] 3.9 mmol/L 3.7 - 5.3 mmol/L [facility] Protein [Mass/Vol] 6.8 g/dL 6.4 - 8.3 g/dL [facility] Sodium [Moles/Vol] 134 mmol/L Low 135 - 144 mmol/L [facility] Urea nitrogen [Mass/Vol] 13 mg/dL 6 - 20 mg/dL [facility] COVID-19, Rapidon 01-24-2023 SARS-CoV-2 (COVID-19) RdRp gene BRITTANY+probe Ql (Resp) Not detected Not Detected [facility] Comment on above: Rapid NAAT: [...] management decisions. Fact sheet for Healthcare Providers: https://www.fda.gov/media/558896/download Fact sheet for Patients: https://www.fda.gov/media/926866/download Methodology: Isothermal Nucleic Acid Amplification Specimen Description .NASOPHARYNGEAL SWAB [facility] ETOHon 01-24-2023 Ethanol [Mass/Vol] mg/dL NINF - 10 mg/dL [facility] Ethanol percent <0.010 NINF - 0.010 % [facility] No Panel Informationon 01-24 [facility] Urine Drug Screenon 01-25-20 23 Amphetamine Screen, Ur Negative NEGATIVE [facility] Comment on above: (Positive cutoff 1000 ng/mL) Barbiturate Screen, Ur Negative NEGATIVE [facility] Comment on above: (Positive cutoff 200 ng/mL) Benzodiazepine Screen, Urine Positive Abnormal NEGATIVE [facility] Comment on above: (Positive cutoff 200 ng/mL) Cannabinoid Scrn, Ur Positive Abnormal NEGATIVE [facility] Comment on above: (Positive cutoff 50 ng/mL) Cocaine Metabolite, Urine Negative NEGATIVE [facility] Comment on above: (Positive cutoff 300 ng/mL) Fentanyl, Ur Negative NEGATIVE [facility] Comment on above: (Positive cutoff 5 ng/ml) Interpretation and review of laboratory results Abnormal [facility] Methadone Screen, Urine Negative NEGATIVE [facility] Comment on above: (Positive cutoff 300 ng/mL) Opiates, Urine Negative NEGATIVE [facility] Comment on above: (Positive cutoff 300 ng/mL) Oxycodone Screen, Ur Negative NEGATIVE [facility] Comment on above: (Positive cutoff 100 ng/mL) Phencyclidine, Urine Negative NEGATIVE [facility] Comment on above: (Positive cutoff 25 ng/mL) Test Information Assay provides medic al screening only. The absence of expected drug(s) and/or metabolite(s) may indicate diluted or adulterated urine, limitations of testing or timing of collection. [facility] Comment on above: Testing for legal pu rposes should be confirmed by another method. To request confirmation of test result, please call the lab within 7 days of sample submission. [facility] CBC with Auto Differentialon 01-20-2023 Absolute Eos # 0.17 [facility] Absolute Immature Granulocyte 0.03 [facility] Absolute Lymph # 2.76 [facility] Absolute [place] # 0.93 [facility] Basophils (Bld) [#/Vol] 0.10 10*3/uL [facility] Basophils/100 WBC (Bld) 1 % 0 - 2 % [facility] Eosinophils/100 WBC (Bld) 2 % 1 - 4 % [facility] Hematocrit (Bld) [Volume fraction] 47.6 % 40.7 - 50.3 % [facility] Hemoglobin (Bld) [Mass/Vol] 15.9 g/dL 13.0 - 17.0 g/dL [facility] Immature granulocytes/100 WBC (Bld) 0 % 0 [facility] Lymphocytes/100 WBC (Bld) 27 % 24 - 43 % [facility] MCH (RBC) [Entitic mass] 30.5 pg 25.2 - 33.5 pg [facility] MCHC (RBC) [Mass/Vol] 33.4 g/dL 28.4 - 34.8 g/dL [facility] MCV (RBC) [Entitic vol] 91.2 fL 82.6 - 102.9 fL [facility] Monocytes/100 WBC (Bld) 9 % 3 - 12 % [facility] NRBC Automated 0.0 0.0 per 100 WBC [facility] Platelet distribution width (Bld) [Ratio] 14.1 % 11.8 - 14.4 % [facility] Platelet mean volume (Bld) [Entitic vol] 9.6 fL 8.1 - 13.5 fL [facility] Platelets (Bld) [#/Vol] 279 10*3/uL [facility] RBC (Bld) [#/Vol] 5.22 10*6/uL 4.21 - 5.7 7 m/uL [facility] Segmented neutrophils/100 WBC (Bld) 61 % 36 - 65 % [facility] Segs Absolute 6.37 [facility] WBC (Bld) [#/Vol] 10.4 10*3/uL [facility] Comprehensive Metabolic Pane per 01-20-2023 Albumin [Mass/Vol] 4.2 g/dL 3.5 - 5.2 g/dL [facility] Albumin/Globulin [Mass ratio] 1.6 {ratio} 1.0 - 2.5 [facility] ALP [Catalytic activity/Vol] 57 U/L 40 - 129 U/L [facility] ALT [Catalytic activity/Vol] 34 U/L 5 - 41 U/L [facility] Anion gap [Moles/Vol] 12 mmol/L 9 - 17 mmol/L [facility] AST [Catalytic activity/Vol] 66 U/L High NINF - 40 U/L [facility] Bilirubin [Mass/Vol] 0.7 mg/dL 0.3 - 1 .2 mg/dL [facility] Calcium [Mass/Vol] 9.4 mg/dL 8.6 - 10. 4 mg/dL [facility] Chloride [Moles/Vol] 102 mmol/L 98 - 10 7 mmol/L [facility] CO2 [Moles/Vol] 21 mmol/L 20 - 31 mmol/L [facility] Creatinine [Mass/Vol] 0.59 mg/dL Low 0.70 - 1.20 mg/dL [facility] GFR/1.73 sq M.predicted MDRD (S/P/Bld) [Vol rate/Area] - PINF [facility] Comment on above: These results [...] 112 mg/dL High 70 - 99 mg/dL [facility] Interpretation and review of laboratory results Abnormal [facility] Potassium [Moles/Vol] 4.3 mmol/L 3.7 - 5.3 mmol/L [facility] Protein [Mass/Vol] 6.9 g/dL 6.4 - 8.3 g/dL [facility] Sodium [Moles/Vol] 135 mmol/L 135 - 144 mmol/L [facility] Urea nitrogen [Mass/Vol] 11 mg/dL 6 - 20 mg/dL [facility] TOX SCR, BLD, EDon 3 Acetaminophen Level <5 Low 10 - 30 ug/mL [facility] Ethanol [Mass/Vol] mg/dL NINF - 10 mg/dL [facility] Ethanol percent <0.010 NINF - 0.010 % [facility] Interpretation and review of laboratory results Abnormal [facility] Salicylate Lvl mg/dL Low 3 - 10 mg/dL [facility] Toxic Tricyclic Sc,Blood Negative NEGATIVE [facility] Urine Drug Screenon 01-21-20 23 Amphetamine Screen, Ur Negative NEGATIVE [facility] Comment on above: (Positive cutoff 1000 ng/mL) Barbiturate Screen, Ur Negative NEGATIVE [facility] Comment on above: (Positive cutoff 200 ng/mL) Benzodiazepine Screen, Urine Negative NEGATIVE [facility] Comment on above: (Positive cutoff 200 ng/mL) Cannabinoid Scrn, Ur Positive Abnormal NEGATIVE [facility] Comment on above: (Positive cutoff 50 ng/mL) Cocaine Metabolite, Urine Negative NEGATIVE [facility] Comment on above: (Positive cutoff 300 ng/mL) Fentanyl, Ur Negative NEGATIVE [facility] Comment on above: (Positive cutoff 5 ng/ml) Interpretation and review of laboratory results Abnormal [facility] Methadone Screen, Urine Negative NEGATIVE [facility] Comment on above: (Positive cutoff 300 ng/mL) Opiates, Urine Negative NEGATIVE [facility] Comment on above: (Positive cutoff 300 ng/mL) Oxycodone Screen, Ur Negative NEGATIVE [facility] Comment on above: (Positive cutoff 100 ng/mL) Phencyclidine, Urine Negative NEGATIVE [facility] Comment on above: (Positive cutoff 25 ng/mL) Test Information Assay provides medic al screening only. The absence of expected drug(s) and/or metabolite(s) may indicate diluted or adulterated urine, limitations of testing or timing of collection. [facility] Comment on above: Testing for legal pu rposes should be confirmed by another method. To request confirmation of test result, please call the lab within 7 days of sample submission. [facility] Basic Metabolic Panelon Anion gap [Moles/Vol] 11 mmol/L 9 - 17 mmol/L [place] Bun/Cre Ratio NOT REPORTED [place] Calcium [Mass/Vol] 9.2 mg/dL 8.6 - 10. 4 mg/dL [place] Chloride [Moles/Vol] 104 mmol/L 98 - 10 7 mmol/L [place] CO2 [Moles/Vol] 21 mmol/L 20 - 31 mmol/L [place] Creatinine [Mass/Vol] 0.8 mg/dL 0.7 - 1.2 mg/dL [place] GFR >60 >60 mL/min [place] GFR Non- >60 >60 mL/min [place] GFR/1.73 sq M predicted among non-blacks MDRD (S/P/Bld) [Vol rate/Area] [place] Comment on above: Average GFR for 30-3 9 years old: 107 mL/min/1.73sq m Chronic Kidney Disease: <60 mL/min/1.73sq m Kidney failure: <15 mL/min/1.73sq m eGFR calculated using average adult body mass. Additional eGFR calculator available at: http://www.[employer]/multiple_crcl_2012.htm GFR/1.73 sq M predicted among non-blacks MDRD (S/P/Bld) [Vol rate/Area] NOT REPORTED [place] Glucose [Mass/Vol] 91 mg/dL 70 - 99 mg/dL [place] Potassium [Moles/Vol] 3.8 mmol/L 3.7 - 5.3 mmol/L [place] Sodium [Moles/Vol] 136 mmol/L 135 - 144 mmol/L [place] Urea nitrogen [Mass/Vol] 13 mg/dL 6 - 20 mg/dL [place] Basic Metabolic Profon 06-26 (cont.) Normal [facility] Comment on above: Result Comment: Aver age GFR for 30-39 years old: 107 mL/min/1.73sq m Chronic Kidney Disease: <60 mL/min/1.73sq m Kidney failure: <15 mL/min/1.73sq m eGFR calculated using average adult body mass. Additional eGFR calculator available at: http://www.[employer]/multiple_crcl_2011.htm Performed By: #### C DP, LAC, DIME, BMP, LIP, LIVP, TROPI #### [facility] [address] [place] [address] [facility] Home: Jonathan Castillo MD Anion gap [Moles/Vol] 11 mmol/L Normal - [facility] Comment on above: Performed By: #### C DP, LAC, DIME, BMP, LIP, LIVP, TROPI #### [facility] [address] [place] [address] Careg[facility] Services Home: Jonathan Castillo MD Calcium [Mass/Vol] 9.2 mg/dL Normal 8.6-10.4 [facility] Comment on above: Performed By: #### C DP, LAC, DIME, BMP, LIP, LIVP, TROPI #### [facility] [address] [place] [address] Careg[facility] Home: Jonathan Castillo MD Chloride [Moles/Vol] 104 mmol/L Normal 98-107 [facility] Comment on above: Performed By: #### C DP, LAC, DIME, BMP, LIP, LIVP, TROPI #### [facility] [address] [place] [address] Careg[facility] Services Home: Jonathan Castillo MD CO2 [Moles/Vol] 21 mmol/L Normal 20-31 [facility] Comment on above: Performed By: #### C DP, LAC, DIME, BMP, LIP, LIVP, TROPI #### [facility] [address] [place] [address] [phone] [facility] Home: Jonathan Castillo MD Creatinine [Mass/Vol] 0.80 mg/dL Normal 0.70-1.20 [facility] Comment on above: Performed By: #### C DP, LAC, DIME, BMP, LIP, LIVP, TROPI #### [facility] [address] [place] [address] Careg[facility] Services Home: Jonathan Castillo MD GFR, Amer >60 Normal >60 [facility] Comment on above: Performed By: #### C DP, LAC, DIME, BMP, LIP, LIVP, TROPI #### [facility] [address] [place] [address] [facility] Home: Jonathan Castillo MD GFR,non Amer >60 Normal >60 [facility] Comment on above: Performed By: #### C DP, LAC, DIME, BMP, LIP, LIVP, TROPI #### [facility] [address] [place] [address] Careg[facility] Services Home: Jonathan Castillo MD Glucose [Mass/Vol] 91 mg/dL Normal 70-99 [facility] Comment on above: Performed By: #### C DP, LAC, DIME, BMP, LIP, LIVP, TROPI #### [facility] [address] [place] [address] [facility]: Jonathan Castillo MD Potassium [Moles/Vol] 3.8 mmol/L Normal 3.7-5.3 [facility] Comment on above: Performed By: #### C DP, LAC, DIME, BMP, LIP, LIVP, TROPI #### [facility] [address] [place] [address] [facility] Home: Jonathan Castillo MD Sodium [Moles/Vol] 136 mmol/L Normal 135-144 [facility] Comment on above: Performed By: #### C DP, LAC, DIME, BMP, LIP, LIVP, TROPI #### [facility] [address] [place] [phone] [employer] Home: Jonathan Castillo MD Urea nitrogen [Mass/Vol] 13 mg/dL Normal -20 [facility] Comment on above: Performed By: #### C DP, LAC, DIME, BMP, LIP, LIVP, TROPI #### [facility] [address] [place] [id number] [facility] Home: Jonathan Castillo MD BUN/CRE Ratio NOT REPORTED Normal -20 [facility] Comment on above: Performed By: #### C DP, LAC, DIME, BMP, LIP, LIVP, TROPI #### [facility] [address] [place] [address] [facility] Home: Jonathan Castillo MD Staging: NOT REPORTED Normal [facility] Comment on above: Performed By: #### C DP, LAC, DIME, BMP, LIP, LIVP, TROPI #### [facility] [address] [place] [address] Careg[facility] [employer] Home: Jonathan Castillo MD CBC Auto Differentialon Basophils (Bld) [#/Vol] 0.20 10*3/uL [place] Basophils/100 WBC (Bld) 1 % 0 - 2 % [place] Differential Type NOT REPORTED [place] Eosinophils (Bld) [#/Vol] 0.20 10*3/uL [place] Eosinophils/100 WBC (Bld) 1 % 1 - 4 % [place] Erythrocyte distribution width (RBC) [Ratio] 13.5 % 12.5 - 15.4 % [place] Hematocrit (Bld) [Volume fraction] 49.6 % 41 - 53 % [place] Hemoglobin (Bld) [Mass/Vol] 16.5 g/dL 13.5 - 17.5 g/dL [place] Interpretation and review of laboratory results Abnormal [place] Lymphocytes (Bld) [#/Vol] 3.30 10*3/uL [place] Lymphocytes/100 WBC (Bld) 25 % 24 - 44 % [place] MCH (RBC) [Entitic mass] 30.0 pg 26 - 34 pg [place] MCHC (RBC) [Mass/Vol] 33.3 g/dL 31 - 37 g/dL [place] MCV (RBC) [Entitic vol] 90.3 fL 80 - 100 fL [place] Monocytes (Bld) [#/Vol] 1.00 10*3/uL [place] Monocytes/100 WBC (Bld) 8 % 2 - 11 % [place] Platelet mean volume (Bld) [Entitic vol] 7.6 fL 6 - 12 fL [place] Platelets (Bld) [#/Vol] NOT REPORTED [place] Platelets (Bld) [#/Vol] 281 10*3/uL [place] RBC (Bld) [#/Vol] 5.50 10*6/uL 4.5 - 5.9 m/uL [place] RBC morphology finding Nom (Bld) NOT REPORTED [place] Segmented neutrophils/100 WBC (Bld) 65 % 36 - 66 % [place] Segs Absolute 8.70 High [place] WBC (Bld) [#/Vol] 13.3 10*3/uL [place] WBC (Bld) [#/Vol] NOT REPORTED per 100 WBC [place] WBC Morphology NOT REPORTED [place] CBC with Diffon 06-26-2020 Abs. Basophil 0.20 k/uL Normal 0.0-0.2 [facility] Comment on above: Performed By: #### C DP, LAC, DIME, BMP, LIP, LIVP, TROPI #### [facility] [address] [place] [address] Caregiver Services Home: Jonathan Castillo MD Abs.Neutrophil (Seg) 8.70 k/uL High 1.8-7.7 [facility] Comment on above: Performed By: #### C DP, LAC, DIME, BMP, LIP, LIVP, TROPI #### [facility] [address] [place] [address] Caregiver Services Home: Jonathan Castillo MD Basophils/100 WBC (Bld) 1 % Normal 0-2 [facility] Comment on above: Performed By: #### C DP, LAC, DIME, BMP, LIP, LIVP, TROPI #### [facility] [address] [place] [address] Caregiver Services Home: Jonathan Castillo MD Eosinophils (Bld) [#/Vol] 0.20 10*3/uL Normal 0.0-0.4 [facility] Comment on above: Performed By: #### C DP, LAC, DIME, BMP, LIP, LIVP, TROPI #### [facility] [address] [place] [address] Caregiver Services Home: Jonathan Castillo MD Eosinophils/100 WBC (Bld) 1 % Normal 1-4 [facility] Comment on above: Performed By: #### C DP, LAC, DIME, BMP, LIP, LIVP, TROPI #### [facility] [address] [place] [address] Caregiver Services Home: Jonathan Castillo MD Erythrocyte distribution width (RBC) [Ratio] 13.5 % Normal 12.5-15.4 [facility] Comment on above: Performed By: #### C DP, LAC, DIME, BMP, LIP, LIVP, TROPI #### [facility] [address] [place] [address] Careg[facility] Services Home: Jonathan Castillo MD Hematocrit (Bld) [Volume fraction] 49.6 % Normal 41-53 [facility] Comment on above: Performed By: #### C DP, LAC, DIME, BMP, LIP, LIVP, TROPI #### [facility] [address] [place] [address] Caregiver Services Home: Jonathan Castillo MD Hemoglobin (Bld) [Mass/Vol] 16.5 g/dL Normal 13.5-17.5 [facility] Comment on above: Performed By: #### C DP, LAC, DIME, BMP, LIP, LIVP, TROPI #### [facility] [address] [place] [address] Caregiver Services Home: Jonathan Castillo MD Lymphocytes (Bld) [#/Vol] 3.30 10*3/uL Normal 1.0-4.8 [facility] Comment on above: Performed By: #### C DP, LAC, DIME, BMP, LIP, LIVP, TROPI #### [facility] [address] [place] [address] Caregiver Services Home: Jonathan Castillo MD Lymphocytes/100 WBC (Bld) 25 % Normal 24-44 [facility] Comment on above: Performed By: #### C DP, LAC, DIME, BMP, LIP, LIVP, TROPI #### [facility] [address] [place] [address] Caregiver Services Home: Jonathan Castillo MD MCH (RBC) [Entitic mass] 30.0 pg Normal 26-34 [facility] Comment on above: Performed By: #### C DP, LAC, DIME, BMP, LIP, LIVP, TROPI #### [facility] [address] [place] [address] Caregiver Services Home: Jonathan Castillo MD MCHC (RBC) [Mass/Vol] 33.3 g/dL Normal 31-37 [facility] Comment on above: Performed By: #### C DP, LAC, DIME, BMP, LIP, LIVP, TROPI #### [facility] [address] [place] [address] Careg[facility] Services Home: Jonathan Castillo MD MCV (RBC) [Entitic vol] 90.3 fL Normal 80-100 [facility] Comment on above: Performed By: #### C DP, LAC, DIME, BMP, LIP, LIVP, TROPI #### [facility] [address] [place] [address] Careg[facility] Services Home: Jonathan Castillo MD Monocytes (Bld) [#/Vol] 1.00 10*3/uL Normal 0.1-1.2 [facility] Comment on above: Performed By: #### C DP, LAC, DIME, BMP, LIP, LIVP, TROPI #### [facility] [address] [place] [address] Caregiver Services Home: Jonathan Castillo MD Monocytes/100 WBC (Bld) 8 % Normal 2-11 [facility] Comment on above: Performed By: #### C DP, LAC, DIME, BMP, LIP, LIVP, TROPI #### [facility] [address] [place] [address] Caregiver Services Home: Jonathan Castillo MD Neutrophil (Seg) 65 % Normal 36-66 [facility] Comment on above: Performed By: #### C DP, LAC, DIME, BMP, LIP, LIVP, TROPI #### [facility] [address] [place] [address] Caregiver Services Home: Jonathan Castillo MD Platelet mean volume (Bld) [Entitic vol] 7.6 fL Normal 6.0-12.0 [facility] Comment on above: Performed By: #### C DP, LAC, DIME, BMP, LIP, LIVP, TROPI #### [facility] [address] [place] [address] Caregiver Services Home: Jonathan Castillo MD Platelets (Bld) [#/Vol] 281 10*3/uL Normal 140-450 [facility] Comment on above: Performed By: #### C DP, LAC, DIME, BMP, LIP, LIVP, TROPI #### [facility] [address] [place] [address] [facility] Home: Jonathan Castillo MD RBC (Bld) [#/Vol] 5.50 10*6/uL Normal 4.5-5.9 [facility] Comment on above: Performed By: #### C DP, LAC, DIME, BMP, LIP, LIVP, TROPI #### [facility] [address] [place] [address] [phone] [facility] Home: Jonathan Castillo MD WBC (Bld) [#/Vol] 13.3 10*3/uL High 3.5-11.0 [facility] Comment on above: Performed By: #### C DP, LAC, DIME, BMP, LIP, LIVP, TROPI #### [facility] [address] [place] [address] Caregiver Services Home: Jonathan Castillo MD Abs.Imm.Granulocyte NOT REPORTED Normal 0.00-0.30 [facility] Comment on above: Performed By: #### C DP, LAC, DIME, BMP, LIP, LIVP, TROPI #### [facility] [address] [place] [address] Caregiver Services Home: Jonathan Castillo MD Auto Diff Performed NOT REPORTED Normal [facility] Comment on above: Performed By: #### C DP, LAC, DIME, BMP, LIP, LIVP, TROPI #### [facility] [address] [place] [address] Caregiver Services Home: Jonathan Castillo MD Immature granulocytes (Bld) [#/Vol] NOT REPORTED Normal 0 [facility] Comment on above: Performed By: #### C DP, LAC, DIME, BMP, LIP, LIVP, TROPI #### [facility] [address] [place] [address] Caregiver Services Home: Jonathan Castillo MD NRBC Automated NOT REPORTED Normal [facility] Comment on above: Performed By: #### C DP, LAC, DIME, BMP, LIP, LIVP, TROPI #### [facility] [address] [place] [address] Caregiver Services Home: Jonathan Castillo MD Platelets (Bld) [#/Vol] NOT REPORTED Normal [facility] Comment on above: Performed By: #### C DP, LAC, DIME, BMP, LIP, LIVP, TROPI #### [facility] [address] [place] [address] Careg[facility] Services Home: Jonathan Castillo MD RBC morphology finding Nom (Bld) NOT REPORTED Normal [facility] Comment on above: Performed By: #### C DP, LAC, DIME, BMP, LIP, LIVP, TROPI #### [facility] [address] [place] [address] Caregiver Services Home: Jonathan Castillo MD WBC Morphology NOT REPORTED Normal [facility] Comment on above: Performed By: #### C DP, LAC, DIME, BMP, LIP, LIVP, TROPI #### [facility] [address] [place] [address] Caregiver Services Home: Jonathan Castillo MD CT ABDOMEN PELVIS WO [...] Wiley Hodges DO 06/26/20 Final result Normal [facility] [place], M[facility] Incoming R adiant Results From [employer] - 06/26/2020 7:32 PM EDT EXAMINATION: CT [...] bilateral intrarenal calculi, largest measuring 2-3 mm [facility] [place], [place] 1. Nonobstructing bilateral intrarenal calculi, largest measuring 2-3 mm [facility], [place] EXAMINATION: CT OF T HE ABDOMEN AND [...] Tissues: No acute osseous abnormality is present. [place] D-Dimer Teston 06-26-2020 D-Dimer Test <0.19 Normal [facility] Comment on above: Result Comment: When [...] LAC, DIME, BMP, LIP, LIVP, TROPI #### [facility] [address] [place] [address] Caregiver Services Home: Jonathan Castillo MD D-Dimer, Quantitativeon D-Dimer, Quant <0.19 mg/L FEU [place] Comment on above: When combined with [...] [Mass/Vol] 4.5 g/dL 3.5 - 5.2 g/dL [place] Albumin/Globulin [Mass ratio] 1.6 {ratio} [place] ALP [Catalytic activity/Vol] 62 U/L 40 - 129 U/L [place] ALT [Catalytic activity/Vol] 44 U/L High 5 - 41 U/L [place] AST [Catalytic activity/Vol] 28 U/L <40 [place] Bilirubin Ql (U) 0.80 mg/dL 0.3 - 1.2 mg/dL [place] Bilirubin, Indirect 0.61 mg/dL 0 - 1 mg/dL [place] Bilirubin.direct [Mass/Vol] 0.19 mg/dL <0.31 [place] Globulin (S) [Mass/Vol] NOT REPORTED 1.5 - 3.8 g/dL [place] Interpretation and review of laboratory results Abnormal [place] Protein [Mass/Vol] 7.4 g/dL 6.4 - 8.3 g/dL [place] [place] Lactic Acidon 06-26-2020 Lactate [Moles/Vol] 1.0 mmol/L Normal 0.5-2.2 [facility] Comment on above: Performed By: #### C DP, LAC, DIME, BMP, LIP, LIVP, TROPI #### [facility] [address], [place] [id number] [facility] Services Home: Jonathan Castillo MD Lactate [Moles/Vol] 1 mmol/L 0.5 - 2. 2 mmol/L [place], [place] Lipaseon 06-26-2020 Lipase [Catalytic activity/Vol] 39 U/L Normal 13-60 [facility] Comment on above: Performed By: #### C DP, LAC, DIME, BMP, LIP, LIVP, TROPI #### [facility] [address], [place] [id number] Careg[facility] Services Home: Jonathan Castillo MD Lipase [Catalytic activity/Vol] 39 U/L 13 - 60 U/L [place], [place] Liver Profileon 06-26-2020 Albumin [Mass/Vol] 4.5 g/dL Normal 3.5-5.2 [facility] Comment on above: Performed By: #### C DP, LAC, DIME, BMP, LIP, LIVP, TROPI #### [facility] [address] [place] [address] Caregiver Services Home: Jonathan Castillo MD Albumin/Globulin [Mass ratio] 1.6 {ratio} Normal 1.0-2.5 [facility] Comment on above: Performed By: #### C DP, LAC, DIME, BMP, LIP, LIVP, TROPI #### [facility] [address] [place] [address] Caregiver Services Home: Jonathan Castillo MD Alkaline Phos 62 U/L Normal 40-129 [facility] Comment on above: Performed By: #### C DP, LAC, DIME, BMP, LIP, LIVP, TROPI #### [facility] [address] [place] [address] Caregiver Services Home: Jonathan Castillo MD ALT [Catalytic activity/Vol] 44 U/L High 5-41 [facility] Comment on above: Performed By: #### C DP, LAC, DIME, BMP, LIP, LIVP, TROPI #### [facility] [address] [place] [address] Caregiver Services Home: Jonathan Castillo MD AST [Catalytic activity/Vol] 28 U/L Normal <40 [facility] Comment on above: Performed By: #### C DP, LAC, DIME, BMP, LIP, LIVP, TROPI #### [facility] [address] [place] [address] Caregiver Services Home: Jonathan Castillo MD Bilirubin Ql (U) 0.80 mg/dL Normal 0.3-1.2 [facility] Comment on above: Performed By: #### C DP, LAC, DIME, BMP, LIP, LIVP, TROPI #### [facility] [address] [place] [address] Caregiver Services Home: Jonathan Castillo MD Bilirubin, Indirect 0.61 mg/dL Normal 0.00-1.00 [facility] Comment on above: Performed By: #### C DP, LAC, DIME, BMP, LIP, LIVP, TROPI #### [facility] [address] [place] [phone] Careg[facility] Services Home: Jonathan Castillo MD Bilirubin.direct [Mass/Vol] 0.19 mg/dL Normal <0.31 [facility] Comment on above: Performed By: #### C DP, LAC, DIME, BMP, LIP, LIVP, TROPI #### [facility] [address] [place] [address] Careg[facility] Services Home: Jonathan Castillo MD Protein [Mass/Vol] 7.4 g/dL Normal 6.4-8.3 [facility] Comment on above: Performed By: #### C DP, LAC, DIME, BMP, LIP, LIVP, TROPI #### [facility] [address] [place] [phone] Careg[facility] Services Home: Jonathan Castillo MD Globulin (S) [Mass/Vol] NOT REPORTED Normal 1.5-3.8 [facility] Comment on above: Performed By: #### C DP, LAC, DIME, BMP, LIP, LIVP, TROPI #### [facility] [address] [place] [address] Caregiver Services Home: Jonathan Castillo MD Microscopic Urinalysison Amorphous, UA NOT REPORTED None [facility], [place] Bacteria, UA None None [facility] Casts UA NOT REPORTED [facility] Crystals, UA NOT REPORTED None /HPF [facility], [place] Epithelial Cells UA 10 TO 20 [place], [place] Interpretation and review of laboratory results Abnormal [facility], [place] Mucus, UA 2+ Abnormal None [facility], [place] Other Observations UA Utilizing a urinal ysis as the only screening method to exclude a potential uropathogen can be unreliable in many patient populations. Rapid screening tests are less sensitive than culture and if UTI is a clinical possibility, culture should be considered despite a negative urinalysis. Abnormal NOT REQ. [place] RBC (U) [#/Vol] 0 TO 2 [place] Renal Epithelial, UA NOT REPORTED 0 /HPF [place] Trichomonas, UA NOT REPORTED None [place] WBC, UA 2 TO 5 [place] Yeast, UA NOT REPORTED None [place] Otheron 06-26-2020 Immature granulocytes (Bld) [#/Vol] NOT REPORTED 0 % [place] Troponinon 06-26-2020 Troponin I.cardiac [Mass/Vol] 7 ng/L Normal 0-22 [facility] Comment on above: Result Comment: High Sensitivity Troponin values cannot be compared with other Troponin methodologies. Patients with high levels of Biotin oral intake (i.e >5mg/day) may have falsely decreased Troponin levels. Samples collected within 8 hours of biotin intake may require additional information for diagnosis. Performed By: #### C DP, LAC, DIME, BMP, LIP, LIVP, TROPI #### [facility] [address], [place] [id number] Caregiver Services Home: Jonathan Castillo MD Troponin I.cardiac [Mass/Vol] NOT REPORTED Normal [facility] Comment on above: Performed By: #### C DP, LAC, DIME, BMP, LIP, LIVP, TROPI #### [facility] [address], [place] [id number] Caregiver Services Home: Jonathan Castillo MD Troponin I.cardiac [Mass/Vol] NOT REPORTED [place] Troponin T.cardiac [Mass/Vol] NOT REPORTED <0.03 ng/mL [place] Troponin, High Sensitivity 7 ng/L 0 - 22 ng/L [place] Comment on above: High Sensitivity Troponin values cannot be compared with other Troponin methodologies. Patients with high levels of Biotin oral intake (i.e >5mg/day) may have falsely decreased Troponin levels. Samples collected within 8 hours of biotin intake may require additional information for diagnosis. UA w/Reflex Cultureon 2019 Acetoacetic Acid,Ur Negative Normal NEG [facility] Comment on above: Performed By: #### U AX, UMICAO #### [facility] [address] [place] [address] Caregiver Services Home: Jonathan Castillo MD Bilirubin, SemiQt,Ur Negative Abnormal NEG [facility] Comment on above: Performed By: #### U AX, UMICAO #### [facility] [address] [place] [address] Caregiver Services Home: Jonathan Castillo MD Color (U) YELLOW Normal YEL [facility] Comment on above: Performed By: #### U AX, UMICAO #### [facility] [address] [place] [address] Caregiver Services Home: Jonathan Castillo MD Glucose Ql (U) Negative Normal NEG [facility] Comment on above: Performed By: #### U AX, UMICAO #### [facility] [address] [place] [phone] Caregiver Services Home: Jonathan Castillo MD Hemoglobin, Ur Negative Normal NEG [facility] Comment on above: Performed By: #### U AX, UMICAO #### [facility] [address] [place] [address] Caregiver Services Home: Jonathan Castillo MD Leukocyte esterase Test strip Ql (U) Negative Normal NEG [facility] Comment on above: Performed By: #### U AX, UMICAO #### [facility] [address] [place] [address] Caregiver Services Home: Jonathan Castillo MD Nitrite,Ur Negative Normal NEG [facility] Comment on above: Performed By: #### U AX, UMICAO #### [facility] [address] [place] [address] Caregiver Services Home: Jonathan Castillo MD pH (U) 5.5 [pH] Normal 5.0-8.0 [facility] Comment on above: Performed By: #### U AX, UMICAO #### [facility] [address] [place] [address] Caregiver Services Home: Jonathan Castillo MD Protein Ql (U) Negative Normal NEG [facility] Comment on above: Performed By: #### U AX, UMICAO #### [facility] [address] [place] [address] Caregiver Services Home: Jonathan Castillo MD Specific gravity (U) [Rel density] 1.026 Normal 1.005-1.030 [facility] Comment on above: Performed By: #### U AX, UMICAO #### [facility] [address] [place] [address] Caregiver Services Home: Jonathan Castillo MD Turbidity CLEAR Normal CLEAR [facility] Comment on above: Performed By: #### U AX, UMICAO #### [facility] [address] [place] [phone] Caregiver Services Home: Jonathan Castillo MD Urobilinogen,Ur Normal Normal NORM [facility] Comment on above: Performed By: #### U AX, UMICAO #### [facility] [address] [place] [address] Caregiver Services Home: Jonathan Castillo MD Comment NOT REPORTED Normal [facility] Comment on above: Performed By: #### U AX, UMICAO #### [facility] [address] [place] [address] Caregiver Services Home: Jonathan Castillo MD Urinalysis Reflex to Culture on 06-26-2020 Bilirubin Urine Negative Abnormal NEGATIVE [place] Color, UA YELLOW YELLOW [place] Glucose, Ur Negative NEGATIVE [place] Interpretation and review of laboratory results Abnormal [place] Ketones Ql (U) Negative NEGATIVE [place] Leukocyte esterase Test strip Ql (U) Negative NEGATIVE [place] Nitrite, Urine Negative NEGATIVE [place] pH, UA 5.5 [place] Protein (U) [Mass/Vol] Negative NEGATIVE [place] Specific [place], UA 1.026 [place], [place] Turbidity UA CLEAR CLEAR [place] Urinalysis Comments NOT REPORTED [place] Urine Hgb Negative NEGATIVE [place] Urobilinogen, Urine Normal Normal [place] Urinalysis,Microon 0 ----- Normal [facility] Comment on above: Performed By: #### U AX, UMICAO #### [facility] [address] [place] [address] Caregiver Services Home: Jonathan Castillo MD Bacteria LM.HPF (Urine sed) [#/Area] None Normal [facility] Comment on above: Performed By: #### U AX, UMICAO #### [facility] [address] [place] [address] Caregiver Services Home: Jonathan Castillo MD Epithelial cells LM.HPF (Urine sed) [#/Area] 10 TO 20 Normal 0-5 [facility] Comment on above: Performed By: #### U AX, UMICAO #### [facility] [address] [place] [address] Caregiver Services Home: Jonathan Castillo MD Mucus Strands 2+ Abnormal [facility] Comment on above: Performed By: #### U AX, UMICAO #### [facility] [address] [place] [address] Caregiver Services Home: Jonathan Castillo MD Other Observations Utilizing a urinalys is as the only screening method to exclude a potential Abnormal NREQ [facility] Comment on above: Result Comment: urop athogen can be unreliable in many patient populations. Rapid screening tests are less sensitive than culture and if UTI is a clinical possibility, culture should be considered despite a negative urinalysis. Performed By: #### U AX UMDOTO #### [facility] [address] [place] [address] Caregiver Services Home: Jonathan Castillo MD RBC (U) [#/Vol] 0 TO 2 Normal 0-2 [facility] Comment on above: Performed By: #### U AX, UMICAO #### [facility] [address] [place] [address] Caregiver Services Home: Jonathan Castillo MD WBC (U) [#/Vol] 2 TO 5 Normal 0-5 [facility] Comment on above: Performed By: #### U AX, UMICAO #### [facility] [address] [place] [address] Caregiver Services Home: Jonathan Castillo MD Amorphous sediment LM Ql (Urine sed) NOT REPORTED Normal [facility] Comment on above: Performed By: #### U AX, UMICAO #### [facility] [address] [place] [address] Caregiver Services Home: Jonathan Castillo MD Casts LM.LPF (Urine sed) [#/Area] NOT REPORTED Normal 0-2 [facility] Comment on above: Performed By: #### U AX, UMICAO #### [facility] [address] [place] [address] Caregiver Services Home: Jonathan Castillo MD Crystals LM Nom (Urine sed) NOT REPORTED Normal [facility] Comment on above: Performed By: #### U AX, UMICAO #### [facility] [address] [place] [address] Caregiver Services Home: Jonathan Castillo MD Epithelial, Renal NOT REPORTED Normal 0 [facility] Comment on above: Performed By: #### U AX, UMICAO #### [facility] [address] [place] [address] Caregiver Services Home: Jonathan Castillo MD Trichomonas NOT REPORTED Normal NONE [facility] Comment on above: Performed By: #### U AX, UMICAO #### [facility] [address] [place] [address] Caregiver Services Home: Jonathan Castillo MD Yeast LM Ql (Urine sed) NOT REPORTED Normal NONE [facility] Comment on above: Performed By: #### U AX, UMICAO #### [facility] [address] [place] [address] Caregiver Services Home: Jonathan Castillo MD Vital Signs Date Time Vital Sign Value Performing Clinician Kaii jennifer 11-21-2024 16:35-0500 Diastolic blood pressure 64 mm[Hg] Skip Ashraf MD Work Phone: [facility] 11-21-2024 16:35-0500 Heart rate 70 /min Skip Ashraf MD Work Phone: [facility] 11-21-2024 16:35-0500 Systolic blood pressure 140 mm[Hg] Skip Ashraf MD Work Phone: [facility] 11-21-2024 16:26-0500 Body temperature 97.9 [degF] Skip Ashrfa MD Work Phone: [facility] 11-21-2024 16:26-0500 Respiratory rate 16 /min Skip Ashraf MD Work Phone: [facility] 11-21-2024 16:26-0500 SaO2% (BldA) [Mass fraction] 100 % Skip Ashraf MD Work Phone: [facility] 11-21-2024 12:25-0500 Body height 180.3 cm Skip Ashraf MD Work Phone: [facility] 11-21-2024 12:25-0500 Body mass index (BMI) [Ratio] 37.66 kg/m2 Skip Ashraf MD Work Phone: [facility] 11-21-2024 12:25-0500 Body weight 122.47 kg Skip Ashraf MD Work Phone: [facility] 09-19-2024 00:44-0500 Body height 180.3 cm Kiran Ortiz MD Work Phone: [facility] 09-19-2024 00:44-0500 Body mass index (BMI) [Ratio] 39.05 kg/m2 Kiran Ortiz MD Work Phone: [facility] 09-19-2024 00:44-0500 Body temperature 98.1 [degF] Kiran Ortiz MD Work Phone: [facility] 09-19-2024 00:44-0500 Body weight 127.01 kg Kiran Ortiz MD Work Phone: [facility] 09-19-2024 00:44-0500 Diastolic blood pressure 81 mm[Hg] Kiran Ortiz MD Work Phone: [facility] 09-19-2024 00:44-0500 Heart rate 65 /min Kiran Ortiz MD Work Phone: [facility] 09-19-2024 00:44-0500 Respiratory rate 16 /min Kiran Ortiz MD Work Phone: [facility] 09-19-2024 00:44-0500 SaO2% (BldA) [Mass fraction] 98 % Kiran Ortiz MD Work Phone: [facility] 09-19-2024 00:44-0500 Systolic blood pressure 110 mm[Hg] Kiran Ortiz MD Work Phone: [facility] 09-17-2024 13:44-0500 Body height 180.3 cm Mai Schuster MD Work Phone: [facility] 09-17-2024 13:44-0500 Body mass index (BMI) [Ratio] 39.05 kg/m2 Mai Schuster MD Work Phone: [facility] 09-17-2024 13:44-0500 Body temperature 97.7 [degF] Mai Schuster MD Work Phone: [facility] 09-17-2024 13:44-0500 Body weight 127.01 kg Mai Schuster MD Work Phone: [facility] 09-17-2024 13:44-0500 Diastolic blood pressure 73 mm[Hg] Mai Schuster MD Work Phone: [facility] 09-17-2024 13:44-0500 Heart rate 60 /min Mai Schuster MD Work Phone: [facility] 09-17-2024 13:44-0500 Respiratory rate 14 /min Mai Schuster MD Work Phone: [facility] 09-17-2024 13:44-0500 SaO2% (BldA) [Mass fraction] 97 % Mai Schuster MD Work Phone: [facility] 09-17-2024 13:44-0500 Systolic blood pressure 112 mm[Hg] Mai Schuster MD Work Phone: [facility] 06-12-2024 08:19-0400 Body temperature 98.01 [degF] Joe Verduzco MD Work Phone: [facility] 06-12-2024 08:19-0400 Diastolic blood pressure 80 mm[Hg] Joe Verduzco MD Work Phone: [employer] 06-12-2024 08:19-0400 Heart rate 82 /min Joe Verduzco MD Work Phone: [employer] 06-12-2024 08:19-0400 Respiratory rate 16 /min Joe Verduzco MD Work Phone: [employer] 06-12-2024 08:19-0400 SaO2% (BldA) [Mass fraction] 97 % Joe Verduzco MD Work Phone: [employer] 06-12-2024 08:19-0400 Systolic blood pressure 119 mm[Hg] Joe Verduzco MD Work Phone: [facility] 06-09-2024 00:25-0400 Body height 180.4 cm Joe Verduzco MD Work Phone: [facility] 06-09-2024 00:25-0400 Body mass index (BMI) [Ratio] 39.03 kg/m2 Joe Verduzco MD Work Phone: [facility] 06-09-2024 00:25-0400 Body weight 127.01 kg Joe Verduzco MD Work Phone: [facility] 05-04-2024 09:26-0400 Diastolic blood pressure 93 mm[Hg] DO Parish Hay Work Phone: [facility] 05-04-2024 09:26-0400 Heart rate 88 /min DO Parish Hay Work Phone: [facility] 05-04-2024 09:26-0400 Respiratory rate 20 /min DO Parish Hay Work Phone: [facility] 05-04-2024 09:26-0400 SaO2% (BldA) [Mass fraction] 97 % DO Parish Hay Work Phone: [facility] 05-04-2024 09:26-0400 Systolic blood pressure 135 mm[Hg] DO Parish Hay Work Phone: [facility] 05-03-2024 21:18-0400 Body height 180.34 cm DO Parish Hay Work Phone: [facility] 05-03-2024 21:18-0400 Body weight 127 kg DO Parish Hay Work Phone: [facility] 05-02-2024 21:27-0400 Body height 180.3 cm Best Roper MD Work Phone: [employer] 05-02-2024 21:27-0400 Body mass index (BMI) [Ratio] 39.05 kg/m2 Best Roper MD Work Phone: [facility] 05-02-2024 21:27-0400 Body temperature 98.49 [degF] Best Roper MD Work Phone: [facility] 05-02-2024 21:27-0400 Body weight 127.01 kg Best Roper MD Work Phone: [facility] 05-02-2024 21:27-0400 Diastolic blood pressure 108 mm[Hg] Best Roper MD Work Phone: [employer] 05-02-2024 21:27-0400 Heart rate 97 /min Best Roper MD Work Phone: [employer] 05-02-2024 21:27-0400 Respiratory rate 20 /min Best Roper MD Work Phone: [employer] 05-02-2024 21:27-0400 SaO2% (BldA) [Mass fraction] 95 % Best Roper MD Work Phone: [employer] 05-02-2024 21:27-0400 Systolic blood pressure 124 mm[Hg] Best Roper MD Work Phone: [facility] 02-02-2023 17:57-0400 Body height 182.9 cm Mai Schuster MD Work Phone: [facility] 02-02-2023 17:57-0400 Body mass index (BMI) [Ratio] 34.72 kg/m2 Mai Schuster MD Work Phone: [facility] 02-02-2023 17:57-0400 Body temperature 98.1 [degF] Mai Schuster MD Work Phone: [facility] 02-02-2023 17:57-0400 Body weight 116.12 kg Mai Schuster MD Work Phone: [facility] 02-02-2023 17:57-0400 Heart rate 92 /min Mai Schuster MD Work Phone: [facility] 02-02-2023 17:57-0400 Respiratory rate 16 /min Mai Schuster MD Work Phone: [facility] 02-02-2023 17:57-0400 SaO2% (BldA) [Mass fraction] 97 % Mai Schuster MD Work Phone: [facility] 01-24-2023 22:12-0400 Diastolic blood pressure 72 mm[Hg] Paul Leroy MD Work Phone: [facility] 01-24-2023 22:12-0400 Heart rate 80 /min Paul Leroy MD Work Phone: [facility] 01-24-2023 22:12-0400 Respiratory rate 13 /min Paul Leroy MD Work Phone: [facility] 01-24-2023 22:12-0400 SaO2% (BldA) [Mass fraction] 94 % Paul Leroy MD Work Phone: [facility] 01-24-2023 22:12-0400 Systolic blood pressure 137 mm[Hg] Paul Leroy MD Work Phone: [facility] 01-24-2023 20:56-0400 Body temperature 97.81 [degF] Paul Leroy MD Work Phone: [facility] 01-24-2023 18:53-0400 Body height 182.9 cm Paul Leroy MD Work Phone: [facility] 01-24-2023 18:53-0400 Body mass index (BMI) [Ratio] 37.3 kg/m2 Paul Leroy MD Work Phone: [facility] 01-24-2023 18:53-0400 Body weight 124.74 kg Paul Leroy MD Work Phone: [facility] 01-20-2023 21:15-0400 Diastolic blood pressure 69 mm[Hg] Buffy Camarillo MD Work Phone: [facility] 01-20-2023 21:15-0400 Heart rate 72 /min Buffy Camarillo MD Work Phone: [facility] 01-20-2023 21:15-0400 Respiratory rate 15 /min Buffy Camarillo MD Work Phone: [facility] 01-20-2023 21:15-0400 SaO2% (BldA) [Mass fraction] 92 % Buffy Camarillo MD Work Phone: [facility] 01-20-2023 21:15-0400 Systolic blood pressure 110 mm[Hg] Buffy Camarillo MD Work Phone: [facility] 01-20-2023 16:53-0400 Body mass index (BMI) [Ratio] 39.46 kg/m2 Buffy Camarillo MD Work Phone: [facility] 01-20-2023 16:53-0400 Body temperature 97 [degF] Buffy Camarillo MD Work Phone: [facility] 01-20-2023 16:53-0400 Body weight 124.74 kg Buffy Camarillo MD Work Phone: [facility] 06-26-2020 21:02-0400 BP Diastolic 103 mm[Hg] [facility], [place] 06-26-2020 21:02-0400 BP Systolic 141 mm[Hg] [facility], [place] 06-26-2020 21:02-0400 Pulse (Heart Rate) 90 /min [facility], [place] 06-26-2020 21:02-0400 Pulse Oximetry 97 % [facility], [place] 06-26-2020 21:02-0400 Respiratory Rate 16 /min [facility], [place] 06-26-2020 18:36-0400 BMI (Body Mass Index) 43.05 kg/m2 [facility], [place] 06-26-2020 18:36-0400 Body Temperature 98.4 [degF] [facility], [place] 06-26-2020 18:36-0400 Body weight 136.08 kg [facility], [place] 06-26-2020 18:36-0400 Height 177.8 cm [facility] 05-13-2020 10:38-0400 BMI (Body Mass Index) 44.63 kg/m2 [facility] 05-13-2020 10:38-0400 Body weight 137.08 kg [facility] , [place] 05-13-2020 10:38-0400 Height 175.3 cm [facility] , [place] 05-13-2020 10:37-0400 Body Temperature 98.2 [degF] [facility] [place] 05-13-2020 10:37-0400 BP Diastolic 83 mm[Hg] [facility] , [place] 05-13-2020 10:37-0400 BP Systolic 144 mm[Hg] [facility] , [place] 05-13-2020 10:37-0400 Pulse (Heart Rate) 84 /min [facility] [place] 05-13-2020 10:37-0400 Pulse Oximetry 97 % [facility] TIFFANIE 05-13-2020 10:37-0400 Respiratory Rate 14 /min [facility] [place] Encounters Encounter Date Encounter Type Care Provider Facility Start: 11-21-2024 End: 11-21-2024 Emergency department patient visit Skip Ashraf MD Work Phone: [facility] Emergency Department Comment on above: Suicidal ideation (P rimary Dx); Alcohol abuse Start: 10-31-2024 End: 10-31-2024 ambulatory [facility] Start: 10-30-2024 End: 11-03-2024 [facility] Start: 10-30-2024 End: 11-03-2024 Evaluation and management of inpatient [facility] Start: 09-19-2024 End: 09-19-2024 Emergency department patient visit Kiran Ortiz MD Work Phone: [facility] Comment on above: Bronchitis (Primary Dx) Start: 09-17-2024 End: 09-17-2024 Emergency department patient visit Mai Schuster MD Work Phone: [facility] Comment on above: Alcohol withdrawal s yndrome without complication (HCC) (Primary Dx); Primary insomnia Start: 09-13-2024 End: 09-14-2024 ambulatory Leslie Ng Facility:[facility] Start: 09-09-2024 End: 09-13-2024 [facility] Start: 09-08-2024 End: 09-12-2024 Evaluation and management of inpatient [facility] Start: 09-05-2024 End: 09-06-2024 Evaluation and management of inpatient SEVERIANO [facility] Start: 08-31-2024 End: 09-04-2024 Evaluation and management of inpatient LEEANN COLLIER [facility] Start: 08-29-2024 End: 08-29-2024 Emergency department patient visit Wilberto Morton MD Facility:[facility] Start: 08-27-2024 End: 08-29-2024 Evaluation and management of inpatient Jonathan Stephenson APRN-REGIONAL CLIMATE CHANGE ANALYST Facility:[facility] Start: 08-15-2024 End: 08-15-2024 Emergency department patient visit BUFFY CAMARILLO [facility] Start: 07-20-2024 End: 07-20-2024 Emergency department patient visit CAREY HERNANDEZ [facility] Start: 07-09-2024 End: 07-10-2024 Evaluation [facility] management [facility] Start: 07-04-2024 End: 07-04-2024 Emergency department patient visit PAUL LEROY [facility] Start: 06-22-2024 End: 06-28-2024 Evaluation and management of inpatient SEVERIANO [facility] Start: 06-16-2024 ambulatory Jonathan Stephenson APRN-REGIONAL CLIMATE CHANGE ANALYST Facility:[facility] Start: 06-14-2024 End: 06-14-2024 Emergency department patient visit Janelle Moreno MD Facility:[facility] Start: 06-08-2024 End: 06-12-2024 Evaluation and management of inpatient Joe Verduzco MD Work Phone: [facility] Adult Psych 7E Comment on above: Suicide attempt (HCC ) (Primary Dx); Suicide attempt by benzodiazepine overdose (HCC); Antipsychotic overdose, intentional self-harm, initial encounter (HCC) Start: 06-07-2024 End: 06-08-2024 ambulatory [facility]ebo [facility] Start: 06-04-2024 End: 06-07-2024 Evaluation and management of inpatient Davon Bernal MD Facility:[facility] Inpatient Psychiatric Unit Start: 06-04-2024 End: 06-04-2024 Emergency department patient visit Pebbles Ruiz DO Facility:[facility] Start: 05-30-2024 End: 06-02-2024 [facility] Start: 05-29-2024 ambulatory Jonathan Stephenson BREAST BUFFER-REGIONAL CLIMATE CHANGE ANALYST [facility] Start: 05-04-2024 ambulatory Madhav eHrman acility:[facility] Start: 05-03-2024 End: 05-04-2024 Emergency department patient visit DO Parish Satnam Work Phone: [facility] Work Phone: Start: 05-02-2024 End: 05-02-2024 Emergency department patient visit Best Roper MD Work Phone: [facility] Comment on above: Anxiety state (Prima ry Dx); Alcohol abuse Start: 04-06-2024 End: 04-09-2024 ambulatory Rivka Lantigua BREAST BUFFER-REGIONAL CLIMATE CHANGE ANALYST Facility:[facility] Start: 03-27-2024 End: 03-27-2024 Emergency department patient visit Sarah Gaitan PA-C Facility:[facility] Start: 03-03-2024 End: 03-04-2024 Emergency department [facility] Start: 03-01-2024 End: 03-01-2024 Emergency department patient visit Janelle Moreno MD Facility:[facility] Start: 01-14-2024 End: 01-17-2024 Evaluation and management of inpatient Rivka Lantigua BREAST BUFFER-REGIONAL CLIMATE CHANGE ANALYST Facility:[facility] Start: 01-07-2024 Encounter for genera l adult medical examination without abnormal findings LAURA WERNER [facility] Start: 01-07-2024 End: 01-12-2024 Evaluation and management of inpatient JONATHAN STEPHENSON [facility] Start: 01-06-2024 End: 01-06-2024 Emergency department patient visit Physician Michelle Queen [facility] Start: 01-05-2024 End: 01-05-2024 Emergency department patient visit Physician Michelle Queen [facility] Start: 01-01-2024 End: 01-05-2024 Evaluation and management of inpatient Samantha Rivera Facility:[facility] Inpatient Psychiatric Unit Start: 01-01-2024 End: 01-01-2024 Emergency department patient visit Tai Galvez MD Facility:[facility] Start: 12-26-2023 End: 12-26-2023 Emergency department patient visit PAUL LEROY [facility] Start: 12-07-2023 End: 12-11-2023 Evaluation and management of inpatient UNKNOWN UNKNOWN [facility] Start: 12-07-2023 Emergency department patient visit RODNEY FOSTER [facility] Start: 12-07-2023 End: 12-07-2023 Evaluation and management of inpatient SEVERIANO CHAUHAN [facility] Start: 11-24-2023 End: 11-27-2023 Evaluation and management of inpatient UNKNOWN UNKNOWN [facility] Start: 09-28-2023 End: 10-01-2023 Evaluation and management of inpatient UNKNOWN UNKNOWN [facility] Start: 02-02-2023 End: 02-02-2023 Emergency department patient visit Mai Schuster MD Work Phone: [facility] Comment on above: Depression with suic idal ideation (Primary Dx) Start: 01-24-2023 End: 01-24-2023 Emergency department patient visit Paul Leroy MD Work Phone: [facility] Comment on above: Suicidal ideation (P rimary Dx) Start: 01-20-2023 End: 01-20-2023 Emergency department patient visit Buffy Camarillo MD Work Phone: [facility] Comment on above: Suicidal ideation (P rimary Dx); Alcohol dependence with unspecified alcohol-induced disorder (HCC) Start: 10-15-2022 End: 10-15-2022 Subsequent hospital visit by physician [facility] Start: 06-26-2020 End: 06-26-2020 Emergency department patient visit ANNMARIE [facility] Start: 06-26-2020 End: 06-26-2020 [facility] [place] Comment on above: Acute bilateral low back pain, unspecified whether sciatica present (Primary Dx) Start: 05-13-2020 End: 05-13-2020 Emergency department patient visit ANNMARIE [facility] Start: 05-13-2020 End: 05-13-2020 Emergency department patient visit Reginaldo Stevenson Work Phone: [facility] ED Comment on above: Abscess (Primary Dx) [...] Start: 06-08-2024 GLOMERULAR FILTRATIO N RATE, ESTIMATED oJe Verduzco MD Work Phone: Start: 06-08-2024 End: [...] Start: 02-02-2023 Comprehensive metabo lic panel Mai Schuster MD Work Phone: Start: 02-02-2023 GLOMERULAR FILTRATIO [...] abdomen & pelvis w/o contrast material ANNMARIE [facility] Start: 06-26-2020 Assay of lactate ANNMARIE [facility] Start: 06-26-2020 Assay of lipase ANNMARIE PEARCE Start: 06-26-2020 Assay of troponin quantitative [facility] Start: 06-26-2020 Basic metabolic pane l calcium total [facility] Start: 06-26-2020 Blood count complete auto&auto difrntl wbc [facility] Start: 06-26-2020 Fibrin dgradj produc ts d-dimer quantitative [facility] Start: 06-26-2020 Hepatic function panel [facility] Start: 06-26-2020 Ecg routine ecg w/le ast 12 lds w/i&r ANNMARIE [facility] Start: 06-26-2020 INSERT PERIPHERAL IV BERNIE BLEVINS Start: 06-26-2020 TELEMETRY MONITORING BERNIE CASTELLON [facility] Start: 06-26-2020 Urinalysis microscop ic only ANNMARIE [facility] Start: 06-26-2020 Urnls dip stick/tabl et rgnt auto w/o microscopy ANNMARIE [facility] Start: 06-26-2020 Ct abdomen & pelvis w/o [...] Start: 09-17-2025 Depression Monitoring Depression Mon itoring [employer] Start: 09-01-2025 Depression Monitoring Depression Mon itoring [facility] Start: 06-09-2025 Depression Monitoring Depression Mon itoring [facility] Start: 2024 Lipid panel [facility]ids [facility] Start: 08-18-2024 Depression Monitoring Depression Mon itoring [employer] Start: 06-26-2024 COVID-19 Vaccine ( season) COVID-19 Vaccine ( season) [facility] Start: 05-26-2024 Influenza vaccination Flu vaccine (# 1) [facility] Start: 04-03-2024 Hemoglobin A1c measurement A1C test (Diabetic or Prediabetic) [facility] Start: 09-24-2023 Depression Monitoring Depression Mon itoring [facility] Start: 06-26-2023 COVID-19 Vaccine ( season) COVID-19 Vaccine ( season) [facility] Start: 05-26-2023 Influenza vaccination Flu vacc ine (Season Ended) [facility] Start: 11-19-2022 End: 11-19-2022 Patient encounter procedure 11/19/2022 Office Visit Primary Care Isis Chamberlain, HIEU - REGIONAL CLIMATE CHANGE ANALYST [address] [facility] [address] [place] [address] [facility] Start: 10-24-2022 End: 09-24-2023 Cardiac Stress Test - w/Pharm Cardiac Stress Test - w/Pharm Cardiac Services Routine Chest pain, unspecified type Expected: 10/24/2022, Expires: 09/24/2023 [facility] Work Phone: Comment on above: Expected: 10/24/2022 , Expires: 09/24/2023 Start: 05-26-2022 Influenza vaccination Flu vaccine (# 1) [facility] Start: 06-26-2020 Influenza vaccination Flu vaccine (# 1) [place] Start: 2019 Diabetes screen Diabetes screen [facility] Start: 2003 DTaP/Tdap/Td vaccine (1 - Tdap) DTaP/Tdap/Td vaccine (1 - Tdap) [facility] Start: 2003 Hepatitis B vaccine (1 of 3 - 19+ 3-dose series) Hepatitis B vaccine (1 of 3 - 19+ 3-dose series) [facility] Start: 2002 Hepatitis C screening Hepatitis C sc reen [facility] Start: 1999 HIV screening HIV screen [facility] Start: 1997 Varicella vaccine (1 of 2 - 13+ 2-dose series) Varicella vaccine (1 of 2 - 13+ 2-dose series) [facility] Start: 1990 Pneumococcal 0-64 ye ars Vaccine (1 - PCV) Pneumococcal 0-64 years Vaccine (1 - PCV) [facility] Start: 1990 Pneumococcal 0-64 ye ars Vaccine (1 of 1 - PPSV23) Pneumococcal 0-64 years Vaccine (1 of 1 - PPSV23) [place] Start: 1990 Pneumococcal 0-64 ye ars Vaccine (1 of 2 - PCV) Pneumococcal 0-64 years Vaccine (1 of 2 - PCV) [facility] Start: 1985 Varicella vaccine (1 of 2 - 2-dose childhood series) Varicella vaccine (1 of 2 - 2-dose childhood series) [employer] Start: 03-02-1985 COVID-19 Vaccine (#1) COVID-19 Vacci ne (#1) [employer] Start: 1984 Hepatitis B vaccine (1 of 3 - 3-dose series) Hepatitis B vaccine (1 of 3 - 3-dose series) [employer] End: 02-02-2023 Acetaminophen Level [employer] Work Phone: Comment on above: One Time for 1 Occur rences starting 02/02/2023 until 02/02/2023 End: 09-17-2024 Acetaminophen Level [facility] Comment on above: One Time for 1 Occur rences starting 09/17/2024 until 09/17/2024 End: 09-19-2024 COVID-19 & Influenza Combo COVID-19 & Influenza Combo Microbiology Routine One Time for 1 Occurrences starting 09/19/2024 until 09/19/2024 [facility] Comment on above: One Time for 1 Occur rences starting 09/19/2024 until 09/19/2024 EKG 12 Lead EKG 12 Lead ECG STAT 02/02/2023 6:13 PM EDT [employer] Work Phone: EKG 12 Lead EKG 12 Lead ECG STAT 09/17/2024 2:07 PM EST [employer] Nasal Cannula Oxygen Nasal Cannu la Oxygen Respiratory Care Routine Daily until discontinued starting 01/20/2023 [employer] Work Phone: Comment on above: Daily until disconti nued starting 01/20/2023 Oxygen therapy [[facility] Data Set] Initiate Oxygen Therapy Protocol Respiratory Care Routine As Needed until discontinued starting 01/20/2023 [employer] Work Phone: Comment on above: As Needed until disc ontinued starting 01/20/[address] [facility] Work Phone: End: 02-02-2023 Salicylate [employer] Work Phone: Comment on above: One Time for 1 Occur rences starting 02/02/2023 until 02/02/2023 End: 09-17-2024 Salicylate Bon [facility] Comment on above: One Time for 1 Occur rences starting 09/17/2024 until 09/17/2024 Payers Date Payer Category Payer Self-pay 2023 Unknown 2022 Medicaid [id number] 2015 Unknown [employer] [id number] 2015-Present [phone] [address] [place] [address] [id number] [id number]. [id number] 2015 Unknown [id number] [id number].3. [id number] 2015 Unknown [employer] [id number] 2015-Present [phone] [address] [place] [address] [id number] [id number].3. [id number] 1984 Unknown [id number]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
--- NOTE | 2024-11-30 01:23 | PC.NURSE ---
i walked into this patient's room to find this patient awake and alert sitting upright on the bed. I introduced myself to this patient, patient said I need something for my anxiety this patient also said I am going to be here until 08:00 am my son from [place] going back there. this patient also states I signed my self out from [facility] this patient voices no other concerns and shows no signs of distress
== END 2024-11-30 01:37 | disposition home or self-care (01) ==
PROVIDERS: Emergency Provider Emergency Medicine; PCP Nurse Practitioner Primary Care
DX: F41.9 Anxiety disorder, unspecified (principal); Z59.00 Homelessness unspecified; F31.9 Bipolar disorder, unspecified
CPT/HCPCS: 99281